=== PATIENT | female | born 1960 | race Caucasian/White ===

== ENCOUNTER 2016-11-02 08:36 | Emergency (ER) | payer OTHER ==
[2016-11-02 08:45] VITALS: BP 124/67
--- NOTE | 2016-11-02 09:49 | RAD ---
Indication: Pain following hyperextension injury 2 days ago. Bruising on palmar aspect. Pain at fourth and fifth digits radiating to the forearm. Comparison: No relevant prior exams available on the [facility]. Technique: AP and lateral views LEFT hand Report: Bone density is decreased throughout. No cortical disruption or suspicious trabecular irregularity to suggest fracture. Normal articular alignment. Polyarticular joint space narrowing and mild osteophytosis at the interphalangeal joints consistent with osteoarthritis. 3 mm intraosseous ganglion proximal pole of the scaphoid. Unremarkable soft tissue contours. IMPRESSION: Negative for fracture or malalignment.
--- NOTE | 2016-11-02 11:46 | ED ---
Catherine Muhammad Matthew, scribed for Cory Gomez MD on 11/02/16 at 0921 . Upper Extremity Pain - HPI Summary HPI Summary: A 56 y/o female presents to the ED with pain, swelling, and bruising in the left pink and ring finger since 1.5 days ago. The patient was playing football with her son when her finger was bent backwards by the football. PMHx includes asthma. FHx of CAD. - History of Current Complaint Chief Complaint: EDExtremityUpper Stated Complaint: FINGER PAIN Time Seen by Provider: 11/02/16 09:10 Hx Obtained From: Patient Mechanism Of Injury: Direct Blow - by football Onset/Duration: Started Days Ago Timing: Constant Severity Initially: Mild Severity Currently: Mild Pain Location: Finger - left pinky and ring fingers Aggravating Factor(s): Movement Associated Signs & Symptoms: Positive: Swelling, Bruising - Allergies/Home Medications Allergies/Adverse Reactions: Allergies Allergy/AdvReac Type Severity Reaction Status Date / Time Aspirin Allergy Intermediate Vomiting Verified 07/09/16 08:42 Codeine Allergy Mild Hives Verified 07/09/16 08:42 Penicillins Allergy Mild Rash Verified 07/09/16 08:42 PMH/Surg Hx/FS Hx/Imm Hx Endocrine/Hematology History: Reports: Hx Thyroid Disease, Hx Anemia Denies: Hx Anticoagulant Therapy, Hx Diabetes, Other Endocrine/Hematological Disorders Cardiovascular History: Reports: Hx Hypercholesterolemia, Other Cardiovascular Problems/Disorders - HYPERCHOLESTEROLEMIA Denies: Hx Angina, Hx Coronary Artery Disease, Hx Hypertension, Hx Myocardial Infarction, Hx Pacemaker/ICD, Hx Peripheral Vascular Disease, Hx Valvular Heart Disease Respiratory History: Reports: Hx Asthma Denies: Hx Chronic Obstructive Pulmonary Disease (COPD), Other Respiratory Problems/Disorders GI History: Reports: Hx Gall Bladder Disease - REMOVED 1999, Hx Pyloric Stenosis , Hx Ulcer - HX peptic ulcer, Other GI Disorders - Adhesions, H Pylori History: Reports: Other Problems/Disorders - 4yrs ago, urethral stenosis Denies: Hx Renal Disease Musculoskeletal History: Reports: 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, Other Musculoskeletal History - s/p bilateral carpal tunnel release Sensory History: Reports: Hx Contacts or Glasses Denies: Hx Cataracts, Hx Glaucoma, Hx Hearing Aid, Other Sensory Impairments Opthamlomology History: Reports: Hx Contacts or Glasses Denies: Hx Cataracts, Hx Glaucoma, Other Sensory Impairments Neurological History: Reports: Other Neuro Impairments/Disorders - PAIN CLINIC PATIENT Denies: Hx Dementia, Hx Seizures Psychiatric History: Reports: Hx Depression Denies: Hx Anxiety, Hx Panic Disorder, Hx Substance Abuse, Other Psychiatric Issues/Disorders - Cancer History Cancer Type, Location and Year: Cervical CA. SHAINA - Surgical History Surgery Procedure, Year, and Place: C SECTIONS 82, 83, 85, 1989-oophorectomy, 1994 [facility], 1997 (right) shouler rotator cuff, 1999 (right) knee arthroscopy, 2000 cholecystectomy, 10/23 [facility] (left) shoulder rotator cuff, 06/26 [facility]. gastrocsopy w/CLOtest & biopsy, 02/26 [facility] (right) carpal tunnel, 04/28 [facility] (left ) carpal tunnel, 05/30 [facility] gastroscopy w/CLOtest & gastric, antral biopsy, [facility] gastroscopy w/duodenal & gastric. biopsy, 09/28 [facility] exp lap & lysis of adhesions, [CONT.'] 10/29 [facility] partial small obstruction, 03/31 [facility] (left) carpal tunnel, 03/01 [facility] colposcopy w/biopsy of vaginal cuff & genital wart ablation. Rt FOOT - REPAIRED 2ND TOE - W/ SCREW. 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 Hx Anesthesia Reactions: No Infectious Disease History: Denies: Hx Clostridium Difficile, Hx Hepatitis, Hx Human Immunodeficiency Virus (HIV), Hx of Known/Suspected MRSA, Hx Shingles, Hx Tuberculosis, Hx Known/ Suspected VRE, Hx Known/Suspected VRSA, History Other Infectious Disease, Traveled Outside the [place] in Last 30 Days - Family History Known Family History: Positive: Cardiac Disease, Diabetes - Social History Alcohol Use: Occasionally Substance Use Type: Reports: None Hx Tobacco Use: No Smoking Status (MU): Never Smoked Tobacco Type: Cigarettes Amount Used/How Often: 1 pk/day Have You Smoked in the Last Year: Yes Review of Systems Constitutional: Negative Eyes: Negative ENT: Negative Cardiovascular: Negative Respiratory: Negative Gastrointestinal: Negative Genitourinary: Negative Positive: Myalgia - left pinky and ring finger , Edema - left pinky and ring finger Positive: Bruising - left pinky and ring finger Neurological: Negative Psychological: Normal All Other Systems Reviewed And Are Negative: Yes Physical Exam - Summary Physical Exam Summary: Vital signs: reviewed General: Patient is comfortable lying in stretcher with no signs of distress HEENT: within normal limits Lungs: CTA B/L CVS: S1 & S2 present. No murmurs appreciated. EXTREMITIES: FROM in all major joints, Left SKIN: Dry and warm Vital signs: reviewed General: Patient is comfortable lying in stretcher with no signs of distress HEENT: within normal limits Lungs: CTA B/L CVS: S1 & S2 present. No murmurs appreciated. ABDOMEN: Soft, non-tender. No signs of distention. No rebound no guarding, and no masses palpated. Bowel sounds are normal. EXTREMITIES: FROM in all major joints, left 4th and 5th digit with ecchymosis and decrease ROM secondary to pain. No deformity and good capillary refill. No erythema. NEURO: Alert and oriented x 3. No acute neurological deficits. Speech is normal and follows commands. SKIN: Dry and warm Triage Information Reviewed: Yes Vital Signs On Initial Exam: Initial Vitals Temp Pulse Resp BP Pulse Ox 97.7 F 66 16 124/67 97 11/02/16 08:38 11/02/16 08:38 11/02/16 08:38 11/02/16 08:38 11/02/16 08:38 Vital Signs Reviewed: Yes Diagnostics - Vital Signs Vital Signs Temp Pulse Resp BP Pulse Ox 11/02/16 08:45 97.7 F 66 16 124/67 97 11/02/16 08:38 97.7 F 66 16 124/67 97 - Laboratory Lab Statement: Any lab studies that have been ordered have been reviewed, and results considered in the medical decision making process. - Radiology Hand XR Xray Interpretation: No Acute Changes - IMPRESSION: Negative for fracture or malalignment. Radiology Interpretation Completed By: Radiologist Course/Dx - Course Assessment/Plan: A 56 y/o female presents to the ED with pain, swelling, and bruising in the left pink and ring finger since 1.5 days ago. The patient was playing football with her son when her finger was bent backwards by the football. PMHx includes asthma. FHx of CAD. Hand XR shows no fracture or dislocations. It seems that she may have some tendon injury. I have no suspicion of tendon synovitis since there is no erythema, mild swelling, and only slight bruising. Therefore, the patient was placed in a finger splint with PCP follow-up. She was recommend if she develops, fever, more swelling, pain, or erythema to return to the ED for further work-up and management. I discussed all the findings and test results with the patient. Patient was instructed to return to the emergency room immediately if any of the symptoms return or worsens. Plan of care was discussed with the patient and understands and agrees. All questions were answered at patient satisfaction. There were no further complaints or concerns. Lung exam before discharge: CTA B/L. Good air exchange. No wheezing or crackles heard. CVS: S1 and S2 present. No murmurs appreciated. Patient is alert and oriented x 3. Patient is hemodynamically stable. Patient will be discharged home with follow up PCP in the next 2-3 days - Diagnoses Differential Diagnosis/HQI/PQRI: Positive: Contusion, Fracture (Open), Strain, Sprain Provider Diagnoses: Finger sprain Discharge - Discharge Plan Condition: Stable Disposition: HOME Patient Education Materials: Finger Sprain (ED) Referrals: Cory Alexis MD [Primary Care Provider] - 4 Days Additional Instructions: Please follow-up with your primary care physician in 4 days. The documentation as recorded by the Catherine ruiz Matthew accurately reflects the service I personally performed and the decisions made by me, Cory Gomez MD.
== END 2016-11-02 10:15 | disposition home or self-care (01) ==
LOC: ED 08:36
DX: S63.617A Unspecified sprain of left little finger, initial encounter (principal); S63.635A Sprain of interphalangeal joint of left ring finger, initial encounter; X50.9XXA Other and unspecified overexertion or strenuous movements or postures, initial encounter; Y93.61 Activity, american tackle football; Y92.9 Unspecified place or not applicable; Y99.9 Unspecified external cause status
CPT/HCPCS: 99282

== ENCOUNTER 2017-04-17 17:40 | Inpatient (IN) | payer OTHER ==
[2017-04-17] MEDS ORDERED: HYDROmorphone INJ* 1 MG/ML CARPUJECT SYRINGE IV SLOW PU ONE (21:30)
[2017-04-17] MEDS ORDERED: NS 0.9% 1000 ML* 2,000 ML IV ONE (21:30)
[2017-04-17] MEDS ORDERED: Ondansetron INJ* 2 MG/ML VIAL IV ONE (21:30)
[2017-04-17 22:44] LABS: Hematocrit 40 % (35-47); Hemoglobin 13.5 g/dl (12.0-16.0); Mean Corpuscular HGB Conc 34 g/dl (31-36); Mean Corpuscular Hemoglobin 30 pg (27-31); Mean Corpuscular Volume 90 fL (80-97); Mean Platelet Volume 9 um3 (7.4-10.4); Red Blood Count 4.47 10^6/ul (4.0-5.4); Red Cell Distribution Width 13 % (10.5-15); White Blood Count 12.3 10^3/ul (3.5-10.8)
[2017-04-17 23:09] LABS: Albumin 4.4 g/dL (3.2-5.2); BUN/Creatinine Ratio 12.5 (8-20); C Reactive Protein 13.96 mg/L (< 5.00); Calcium 9.5 mg/dL (8.6-10.3); EGFR African American 108.6 (>60); EGFR Non-African American 84.4 (>60); Globulin 2.7 g/dL (2-4); Magnesium 2.3 mg/dL (1.9-2.7); Potassium 3.5 mmol/L (3.5-5.0); Total Bilirubin 1.1 mg/dL (0.2-1.0); Total Protein 7.1 g/dL (6.4-8.9)
[2017-04-17] MEDS ORDERED: Iohexol 300* (CONTRAST) 10 ML SDV IV ONE (23:54)
[2017-04-18] MEDS ORDERED: HYDROmorphone INJ* 1 MG/ML CARPUJECT SYRINGE IV SLOW PU ONE (00:17)
[2017-04-18 01:36] LABS: Urine Bilirubin Negative (Negative); Urine Glucose Negative (Negative); Urine Nitrite Negative (Negative)
[2017-04-18] MEDS ORDERED: Ciprofloxacin 400MG IVPREMIX(* 400 MG/200 ML BAG IVPB ONE (03:05)
[2017-04-18] MEDS ORDERED: metroNIDAZOLE IV 500 MG/100ML* 500 MG/100 ML BAG IVPB ONE (03:06)
--- NOTE | 2017-04-18 03:09 | ED ---
Himanshu Muhammad Alfonso, scribed for Abbie Cotton MD on 04/17/17 at 2050 . Abdominal Pain/Female - HPI Summary HPI Summary: This patient is a 56 year old F presenting to [facility] with a chief complaint of diffuse abdominal pain since last night. She states this is similar to my small bowel obstruction. The patient rates the pain 9/10 in severity. Symptoms aggravated by nothing. Symptoms alleviated by nothing. Patient reports nausea, constipation (few days), loss of appetite, and dysuria (pressure). Patient denies vomiting. A2. PMHx includes asthma, sleep apnea, and SBO (without surgery). PSHx of appendectomy, cholecystectomy, and hysterectomy. - History of Current Complaint Chief Complaint: EDAbdPain Stated Complaint: ABD PAIN Time Seen by Provider: 04/17/17 20:47 Hx Obtained From: Patient Onset/Duration: Sudden Onset, Lasting Days - last night, Still Present Timing: Constant Severity Currently: Severe Pain Intensity: 9 Pain Scale Used: 0-10 Numeric Location: Diffuse Aggravating Factor(s): Nothing Alleviating Factor(s): Nothing Associated Signs and Symptoms: Positive: Other: - nausea, constipation (few days ), loss of appetite, and dysuria (pressure). Patient denies vomiting Allergies/Adverse Reactions: Allergies Allergy/AdvReac Type Severity Reaction Status Date / Time Aspirin Allergy Intermediate Vomiting Verified 11/08/16 10:01 Codeine Allergy Mild Hives Verified 11/08/16 10:01 Penicillins Allergy Mild Rash Verified 11/08/16 10:01 PMH/Surg Hx/FS Hx/Imm Hx Endocrine/Hematology History: Reports: Hx Thyroid Disease, Hx Anemia Denies: Hx Anticoagulant Therapy, Hx Diabetes, Other Endocrine/Hematological Disorders Cardiovascular History: Reports: Hx Hypercholesterolemia, Other Cardiovascular Problems/Disorders - HYPERCHOLESTEROLEMIA Denies: Hx Angina, Hx Coronary Artery Disease, Hx Hypertension, Hx Myocardial Infarction, Hx Pacemaker/ICD, Hx Peripheral Vascular Disease, Hx Valvular Heart Disease Respiratory History: Reports: Hx Asthma Denies: Hx Chronic Obstructive Pulmonary Disease (COPD), Other Respiratory Problems/Disorders GI History: Reports: Hx Gall Bladder Disease - REMOVED 1999, Hx Pyloric Stenosis , Hx Ulcer - HX peptic ulcer, Other GI Disorders - Adhesions, H Pylori, SBO History: Reports: Other Problems/Disorders - 4yrs ago, urethral stenosis Denies: Hx Renal Disease Musculoskeletal History: Reports: 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, Other Musculoskeletal History - s/p bilateral carpal tunnel release Sensory History: Reports: Hx Contacts or Glasses Denies: Hx Cataracts, Hx Glaucoma, Hx Hearing Aid, Other Sensory Impairments Opthamlomology History: Reports: Hx Contacts or Glasses Denies: Hx Cataracts, Hx Glaucoma, Other Sensory Impairments Neurological History: Reports: Other Neuro Impairments/Disorders - PAIN CLINIC PATIENT Denies: Hx Dementia, Hx Seizures Psychiatric History: Reports: Hx Depression Denies: Hx Anxiety, Hx Panic Disorder, Hx Substance Abuse, Other Psychiatric Issues/Disorders - Cancer History Cancer Type, Location and Year: Cervical CA. SHAINA - Surgical History Surgery Procedure, Year, and Place: C SECTIONS 82, 83, 85, 1988-oophorectomy, 1994 [facility], 1997 (right) shouler rotator cuff, 1999 (right) knee arthroscopy, 2000 cholecystectomy, 10/[address] [facility] (left) shoulder rotator cuff, 06/[address] [facility]. gastrocsopy w/CLOtest & biopsy, 02/[address] [facility] (right) carpal tunnel, 04/[address] [facility] (left ) carpal tunnel, 05/[address] [facility] gastroscopy w/CLOtest & gastric, antral biopsy, [facility] gastroscopy w/duodenal & gastric. biopsy, 09/[address] [facility] exp lap & lysis of adhesions, [CONT.'] 10/[address] [facility] partial small obstruction, 03/[address] [facility] (left) carpal tunnel, 03/[address] [facility] colposcopy w/biopsy of vaginal cuff & genital wart ablation. Rt FOOT - REPAIRED 2ND TOE - W/ SCREW. 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 Hx Anesthesia Reactions: No Infectious Disease History: Yes Infectious Disease History: Denies: Hx Clostridium Difficile, Hx Hepatitis, Hx Human Immunodeficiency Virus (HIV), Hx of Known/Suspected MRSA, Hx Shingles, Hx Tuberculosis, Hx Known/ Suspected VRE, Hx Known/Suspected VRSA, History Other Infectious Disease, Traveled Outside the [place] in Last 30 Days - Family History Known Family History: Positive: Cardiac Disease, Diabetes, Other - Negative asthma - Social History Alcohol Use: None Substance Use Type: Reports: None Hx Tobacco Use: No Smoking Status (MU): Never Smoked Tobacco Type: Cigarettes Amount Used/How Often: 1 pk/day Have You Smoked in the Last Year: Yes Review of Systems Negative: Fever Positive: Abdominal Pain, Nausea, Other - constipation, loss of appetite. Negative: Vomiting Positive: dysuria All Other Systems Reviewed And Are Negative: Yes Physical Exam - Summary Physical Exam Summary: General: Well appearing, no pain distress, uncomfortable. Skin: Warm, Skin Color Reflects Adequate Perfusion, Dry Eyes: EOMI, RONALD ENT: Pharynx normal, TMs normal Neck: Supple, nontender Respiratory: CTA, breath sounds present, no rhonchi, no wheezes, no rales Cardiovascular: RRR, no murmur, no rub, no gallop Abdomen: Soft, Suprapubic tenderness, mild distention, no guarding, no rebound Bowel: Tympanic bowel sounds Musculoskeletal: [place], No edema Neuro: Sensory/motor intact, A&Ox3, CN intact 2-12 Psych: Affect/mood appropriate Triage Information Reviewed: Yes Vital Signs On Initial Exam: Initial Vitals Temp Pulse Resp BP Pulse Ox 97.7 F 78 20 127/85 96 04/17/17 17:42 04/17/17 17:42 04/17/17 17:42 04/17/17 17:42 04/17/17 17:42 Vital Signs Reviewed: Yes Diagnostics - Vital Signs Vital Signs Temp Pulse Resp BP Pulse Ox 04/17/17 17:42 97.7 F 78 20 127/85 96 - Laboratory Lab Results: Lab Results 04/17/17 04/17/17 04/17/17 Range/Units 22:05 22:28 22:28 WBC 12.3 H (3.5-10.8) 10^3/ul RBC 4.47 (4.0-5.4) 10^6/ul Hgb 13.5 (12.0-16.0) g/dl Hct 40 (35-47) % MCV 90 (80-97) fL MCH 30 (27-31) pg MCHC 34 (31-36) g/dl RDW 13 (10.5-15) % Plt Count 211 (150-450) 10^3/ul MPV 9 (7.4-10.4) um3 Neut % (Auto) 65.8 (38-83) % Lymph % (Auto) 22.0 L (25-47) % [place] % (Auto) 9.3 H (1-9) % Eos % (Auto) 2.2 (0-6) % Baso % (Auto) 0.7 (0-2) % Absolute Neuts (auto) 8.1 H (1.5-7.7) 10^3/ul Absolute Lymphs (auto) 2.7 (1.0-4.8) 10^3/ul Absolute Monos (auto) 1.1 H (0-0.8) 10^3/ul Absolute Eos (auto) 0.3 (0-0.6) 10^3/ul Absolute Basos (auto) 0.1 (0-0.2) 10^3/ul Absolute Nucleated RBC 0 10^3/ul Nucleated RBC % 0 Sodium 137 (133-145) mmol/L Potassium 3.5 (3.5-5.0) mmol/L Chloride 103 (101-111) mmol/L Carbon Dioxide 27 (22-32) mmol/L Anion Gap 7 (2-11) mmol/L BUN 9 (6-24) mg/dL Creatinine 0.72 (0.51-0.95) mg/dL Est GFR ( Amer) 108.6 (>60) Est GFR (Non-Af Amer) 84.4 (>60) BUN/Creatinine Ratio 12.5 (8-20) Glucose 93 (70-100) mg/dL Calcium 9.5 (8.6-10.3) mg/dL Magnesium 2.3 (1.9-2.7) mg/dL Total Bilirubin 1.10 H (0.2-1.0) mg/dL AST 21 (13-39) U/L ALT 33 (7-52) U/L Alkaline Phosphatase 88 (34-104) U/L C-Reactive Protein 13.96 H (< 5.00) mg/L Total Protein 7.1 (6.4-8.9) g/dL Albumin 4.4 (3.2-5.2) g/dL Globulin 2.7 (2-4) g/dL Albumin/Globulin Ratio 1.6 (1-3) Lipase 17 (11.0-82.0) U/L Urine Color Yellow Urine Appearance Clear Urine pH 6.0 (5-9) Ur Specific [place] 1.013 (1.010-1.030) Urine Protein Negative (Negative) Urine Ketones Negative (Negative) Urine Blood Negative (Negative) Urine Nitrate Negative (Negative) Urine Bilirubin Negative (Negative) Urine Urobilinogen Negative (Negative) Ur Leukocyte Esterase Negative (Negative) Urine Glucose Negative (Negative) Result Diagrams: 04/17/17 22:28 04/17/17 22:28 Lab Statement: Any lab studies that have been ordered have been reviewed, and results considered in the medical decision making process. - CT A/P CT Interpretation Completed By: Radiologist - There is no bowel obstruction, free air or free fluid. There is left colon and sigmoid diverticulosis. No diverticulitis. There is slight thickening of the reese of the transverse colon. This could be due to a partial distention but the possibility of a very mild colitis should be considered in the appropriate clinical context such ad diarrhea. ED physician has reviewed this radiology report and agrees. Re-Evaluation - Re-Evaluation First Eval Re-Evaluation Time: 03:00 Comment: Pt still in pain Abdominal Pain Fem Course/Dx - Course Course Of Treatment: 56 yo female with history of sbo here with left lower quadrant pain, ct shows diverticulosis and questionable transverse colon wall thickening but on repeat exam she is clearly just tender llq. She has had two doses of pain meds here and is still in pain and is unlikely to tolerate her pain at home. She will be treated for diverticulitis and the case will be discussed with Dr. Powell for admission - Diagnoses Provider Diagnoses: Diverticulitis Discharge - Discharge Plan Condition: Stable Disposition: ADMITTED TO [facility] Referrals: Non Staff,Doctor [Primary Care Provider] - The documentation as recorded by the Himanshu ruiz Alfonso accurately reflects the service I personally performed and the decisions made by me, Abbie Cotton MD.
--- NOTE | 2017-04-18 06:17 | HP ---
H&P (Free Text) History and Physical: Date/Time: 04/18/2017 0400 CC: LLQ abdominal pain HPI: Mrs Lima is a 56YO overweight female who is a vague, evasive historian. She reports onset of epigastric pain 1 month ago associated with diarrhea for which she started OTC Immodium resulting in constipation. She states her last BM was 3-4 days ago & described as normal. 2 days ago she began having LLQ pain associated with nausea and sweats after arrival to ED [facility]. She denies F/C, chest pain, SOB, or B/U/F of urine. PMedHx hypothyroidism VIKTOR asthma Ambulatory Orders Nursing to reconcile. Budesonide-Formoterol Fumarate [Symbicort] 2 puff IN BID 10/09/12 Levothyroxine Sodium 75 mcg PO DAILY 10/09/12 Montelukast Sodium TAB* [Singulair TAB*] 5 mg PO DAILY 02/22/15 Aclidinium [place] [Tudorza Pressair] 400 mcg IN DAILY 11/08/16 Nicotine PATCH 21 MG/24 HR* 11 mg TRANSDERM DAILY 02/19/17 Allergies Aspirin Allergy (Intermediate, Verified 11/08/16 10:01) Vomiting Codeine Allergy (Mild, Verified 11/08/16 10:01) Hives Penicillins Allergy (Mild, Verified 11/08/16 10:01) Rash PSurgHx cholecystectomy x3 adhesolysis appendectomy hysterectomy tubal ligation B carpal tunnel release R knee arthroscopy R foot surgery SocHx: quit cigarettes 2 months ago, denies alcohol & recreational drugs; lives with her ; 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; 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 FamHx: Mother: alive 87 w/ DM2 & CVA; Father passed at 56; 5 brothers, one with breast CA, 1 with lymphoma, 1 with an AICD, & 1 with colon CA & renal failure ROS: as above, otherwise reviewed and all were negative vitals: Vital Signs Temp 36.6 C 04/18/17 05:41 Pulse 63 04/18/17 05:41 Resp 16 04/18/17 05:55 BP 124/63 04/18/17 05:41 Pulse Ox 96 04/18/17 05:41 Intake & Output 04/17/17 04/17/17 04/18/17 11:59 23:59 11:59 Intake Total 1999 200 Output Total 300 Balance 1999 Weight 68.039 kg 68.039 kg Intake: IV Fluids 1999 Output: Urine 300 Constitutional: NAD, normally developed, overweight white female HEENM: atraumatic; sclera/conjunctiva: non-icteric/clear; hearing: clinically intact; oropharynx: clear, mucosa moist Neck: soft tissue: normal; thyroid: normal Pulmonary: clear to auscultation bilaterally, good aeration, no accessory muscle use CV: RR/RR, normal S1S2, no carotid bruit, no jugular venous distention, 2+ B DP/ PT, no edema Abdominal: soft, non-distended, mild/mod LLQ tenderness with voluntary guarding but no rebound/rigidity, normoactive bowel sounds, no hepatosplenomegaly or masses, no costovertebral angle tenderness Musculoskeletal: general: grossly intact; gait: stable Integumental: normal appearance and texture of exposed skin Psychiatric orientation: AA&O to PPS affect: calm mood: cooperative eye contact: fair content: reliable responses: evasive insight: fair Testing: Lab Results 04/17/17 04/17/17 04/17/17 Range/Units 22:05 22:28 22:28 WBC 12.3 H (3.5-10.8) 10^3/ul RBC 4.47 (4.0-5.4) 10^6/ul Hgb 13.5 (12.0-16.0) g/dl Hct 40 (35-47) % MCV 90 (80-97) fL MCH 30 (27-31) pg MCHC 34 (31-36) g/dl RDW 13 (10.5-15) % Plt Count 211 (150-450) 10^3/ul MPV 9 (7.4-10.4) um3 Neut % (Auto) 65.8 (38-83) % Lymph % (Auto) 22.0 L (25-47) % [place] % (Auto) 9.3 H (1-9) % Eos % (Auto) 2.2 (0-6) % Baso % (Auto) 0.7 (0-2) % Absolute Neuts (auto) 8.1 H (1.5-7.7) 10^3/ul Absolute Lymphs (auto) 2.7 (1.0-4.8) 10^3/ul Absolute Monos (auto) 1.1 H (0-0.8) 10^3/ul Absolute Eos (auto) 0.3 (0-0.6) 10^3/ul Absolute Basos (auto) 0.1 (0-0.2) 10^3/ul Absolute Nucleated RBC 0 10^3/ul Nucleated RBC % 0 Sodium 137 (133-145) mmol/L Potassium 3.5 (3.5-5.0) mmol/L Chloride 103 (101-111) mmol/L Carbon Dioxide 27 (22-32) mmol/L Anion Gap 7 (2-11) mmol/L BUN 9 (6-24) mg/dL Creatinine 0.72 (0.51-0.95) mg/dL Est GFR ( Amer) 108.6 (>60) Est GFR (Non-Af Amer) 84.4 (>60) BUN/Creatinine Ratio 12.5 (8-20) Glucose 93 (70-100) mg/dL Calcium 9.5 (8.6-10.3) mg/dL Magnesium 2.3 (1.9-2.7) mg/dL Total Bilirubin 1.10 H (0.2-1.0) mg/dL AST 21 (13-39) U/L ALT 33 (7-52) U/L Alkaline Phosphatase 88 (34-104) U/L C-Reactive Protein 13.96 H (< 5.00) mg/L Total Protein 7.1 (6.4-8.9) g/dL Albumin 4.4 (3.2-5.2) g/dL Globulin 2.7 (2-4) g/dL Albumin/Globulin Ratio 1.6 (1-3) Lipase 17 (11.0-82.0) U/L Urine Color Yellow Urine Appearance Clear Urine pH 6.0 (5-9) Ur Specific [place] 1.013 (1.010-1.030) Urine Protein Negative (Negative) Urine Ketones Negative (Negative) Urine Blood Negative (Negative) Urine Nitrate Negative (Negative) Urine Bilirubin Negative (Negative) Urine Urobilinogen Negative (Negative) Ur Leukocyte Esterase Negative (Negative) Urine Glucose Negative (Negative) CT abd/pel W, personally reviewed: FINDINGS: There is no bowel obstruction, free air, or free fluid. There is left colon and sigmoid diverticulosis. No diverticulitis. There is slight thickening of the reese of the transverse colon. This could be due to partial distention but the possibility of a very mild colitis should be considered in the appropriate clinical context such as diarrhea. Normal kidneys, urinary tract, and urinary bladder. Fatty liver. Normal spleen. Normal pancreas. Prior cholecystectomy. Normal adrenal glands. Otherwise no acute abnormalities. Impression: 56F clinically presenting with LLQ diverticulitis despite a negative CT abd/pel W DIAGNOSIS & PLAN Primary LLQ diverticulitis : IV ciprofloxacin & metronidazole : IVFs : trend labs : pain control : supportive care Secondary hypothyroidism : continue levothyroxine once reconciled asthma : PRN albuterol nebs Admission Rational: observation for early diverticulitis DVTp: SCDs Code Status: full
[2017-04-18] MEDS ORDERED: Acetaminophen TAB* 325 MG PO PRN (07:02)
[2017-04-18] MEDS ORDERED: Albuterol 2.5 MG/3 ML NEB.SOL* (0.083%) INH PRN (07:02)
[2017-04-18] MEDS ORDERED: CMC:Melatonin (NF) 3 MG TAB PO PRN (07:03)
[2017-04-18] MEDS: NS 0.9% 1000 ML* 1,000 ML IV SCH ×2 (07:48→19:22)
[2017-04-18] MEDS: HYDROmorphone INJ* 1 MG/ML CARPUJECT SYRINGE IV PRN ×5 (07:49→15:59)
[2017-04-18] MEDS: Ondansetron INJ* 2 MG/ML VIAL IV PRN ×2 (07:56→14:54)
[2017-04-18 08:12] LABS: Hematocrit 39 % (35-47); Hemoglobin 13.2 g/dl (12.0-16.0); Mean Corpuscular HGB Conc 34 g/dl (31-36); Mean Corpuscular Hemoglobin 30 pg (27-31); Mean Corpuscular Volume 89 fL (80-97); Mean Platelet Volume 9 um3 (7.4-10.4); Red Blood Count 4.41 10^6/ul (4.0-5.4); Red Cell Distribution Width 13 % (10.5-15); White Blood Count 11.6 10^3/ul (3.5-10.8)
--- NOTE | 2017-04-18 08:14 | RAD ---
CLINICAL HISTORY: Abdominal pain and history of obstruction. Relevant surgical history includes hysterectomy, cholecystectomy and lysis of adhesions. COMPARISON: Similar CT examination dated August 21, 2010 TECHNIQUE: Contrast enhanced CT examination of the abdomen and pelvis from the lung bases through the initial tuberosities. The patient received 97. mL Omnipaque 300 intravenously prior to imaging.The patient received oral contrast as well prior to imaging. FINDINGS: VISUALIZED LUNG BASES: The visualized lung bases are grossly clear. There is no pleural effusion. ABDOMEN AND PELVIS: The liver is homogenously hypodense compared to the spleen. There are no focal liver masses. The spleen, pancreas and adrenal glands are grossly normal in appearance. The gallbladder is surgically absent. The kidneys are normal in appearance without focal mass, calcification or signs of hydronephrosis. Neural contrast has progressed as far as the splenic flexure. There is surgical material at the midline upper abdominal small bowel. At this site there is dilatation of the small bowel measuring up to 4.1 cm in diameter (image 67) as well as air-fluid levels both proximal and beyond this transition point. More distally the small bowel is not suspiciously under distended. The appendix is not discretely visualized. At the distal colon there are diverticula becoming more numerous at the rectosigmoid colon. Surrounding the sigmoid colon there is mild infiltration of the pericolonic fat (image 139 for example). There is no gross retroperitoneal or mesenteric lymphadenopathy. The uterus is surgically absent. There is compression of the left common iliac vein between the iliac arteries and spine. More inferiorly the iliac veins and visualized common femoral vein or not suspiciously dilated. The abdominal aorta and iliac arteries are normal in course and diameter. Degenerative changes include multilevel loss of intervertebral disc height involving the lower thoracic and lumbar spine.There are no sinister bone lesions. IMPRESSION: 1. At the small bowel anastomotic site at the mid-level upper abdomen there is dilatation up to 4.1 cm with air-fluid levels with proximal and distal to the site indicating a degree of ileus and/or partial obstruction. Nevertheless, contrast is seen as far as the splenic flexure of the colon. 2. There is rectosigmoid diverticulosis with mild inflammatory change surrounding the sigmoid colon which could be consistent with diverticulitis in the correct clinical setting. 3. Appearance of compression of the left common iliac vein which could be seen in the setting of May Thurner syndrome. Please correlate to a history of chronic left lower extremity pain, swelling and/or DVT. 4. Additional chronic, degenerative and postsurgical findings described in the body the report unlikely to be directly related to the patient's current presentation.
[2017-04-18] MEDS ORDERED: Influenza VAC *QUAD* 2017-18* 0.5 ML SYRINGE IM ONE (09:00)
[2017-04-18 09:04] LABS: BUN/Creatinine Ratio 10.9 (8-20); Calcium 8.9 mg/dL (8.6-10.3); EGFR African American 124.4 (>60); EGFR Non-African American 96.7 (>60); Potassium 3.8 mmol/L (3.5-5.0)
[2017-04-18] MEDS: Docusate CAP* 100 MG PO SCH ×2 (09:33→20:54)
[2017-04-18] MEDS: metroNIDAZOLE IV 500 MG/100ML* 500 MG/100 ML BAG IVPB SCH ×2 (11:10→19:44)
[2017-04-18] MEDS: Polyethylene Glycol 3350* 17 GM PACKET PO PRN (14:54)
[2017-04-18] MEDS: Senna TAB PO PRN (14:54)
[2017-04-18] MEDS: Ciprofloxacin IV(*) 400 MG in D5W 250 ML BAG* 160 ML IVPB SCH (15:19)
[2017-04-18] MEDS ORDERED: HYDROmorphone INJ* 2 MG/ML CARPUJECT SYRINGE IV PRN (20:29)
--- NOTE | 2017-04-18 20:36 | PN ---
Subjective Date of Service: 04/18/17 Interval History: LLQ/suprapubic Pain not well controlled on the 0.5mg IV dialudid. Slightly better when increased to 1mg q2 Pt attests. Lactic Acid wnl Passing some flatus but no BM (last 3-4 days ago, had started immodium for diarrhea which occurred intermittently for month) Nausea with vomiting yesterday Hx of lysis of adhesions 2007 Objective Active Medications: Acetaminophen (Tylenol Tab*) 650 mg PO Q6H PRN PRN Reason: FEVER/PAIN Albuterol (Ventolin 2.5 Mg/3 Ml Neb.[place]*) 2.5 mg INH Q2H PRN PRN Reason: SOB/WHEEZING Docusate Sodium (Colace Cap*) 200 mg PO BID [facility] Last Admin: 04/18/17 09:33 Dose: 200 mg Hydromorphone HCl (Dilaudid Inj*) 1.5 mg IV Q2H PRN PRN Reason: PAIN Ciprofloxacin 400 mg/ Dextrose 200 mls @ 200 mls/hr IVPB Q12H [facility] Last Admin: 04/18/17 15:19 Dose: 200 mls/hr Sodium Chloride (Ns 0.9% 1000 Ml*) 1,000 mls @ 125 mls/hr IV PER RATE [facility] Last Admin: 04/18/17 19:22 Dose: 125 mls/hr Metronidazole/Sodium Chloride (Flagyl 500 Mg Ivpb*) 500 mg in 100 mls @ 100 mls /hr IVPB Q8H [facility] Last Admin: 04/18/17 19:44 Dose: 100 mls/hr Melatonin (Melatonin (Nf)) 3 mg PO BEDTIME PRN; Protocol PRN Reason: Sleep Omeprazole (Prilosec Cap*) 20 mg PO DAILY@0600 [facility] Ondansetron HCl (Zofran Inj*) 4 mg IV Q6H PRN PRN Reason: NAUSEA Last Admin: 04/18/17 14:54 Dose: 4 mg Polyethylene Glycol/Electrolytes (Miralax*) 17 gm PO DAILY PRN PRN Reason: CONSTIPATION Last Admin: 04/18/17 14:54 Dose: 17 gm Prochlorperazine Edisylate (Compazine Inj*) 10 mg IV Q6H PRN PRN Reason: NAUSEA Senna (Senokot Tab*) 1 tab PO DAILY PRN PRN Reason: CONSTIPATION Last Admin: 04/18/17 14:54 Dose: 1 tab Vital Signs 04/18/17 04/18/17 04/18/17 04:30 05:41 05:48 Temperature 98 F 98.0 F Pulse Rate 63 63 Respiratory 18 16 16 Rate Blood Pressure 123/77 124/63 124/63 (mmHg) O2 Sat by Pulse 96 96 Oximetry 04/18/17 04/18/17 04/18/17 05:55 07:40 07:49 Temperature 97.4 F Pulse Rate 67 Respiratory 16 16 18 Rate Blood Pressure 107/52 (mmHg) O2 Sat by Pulse 96 Oximetry 04/18/17 04/18/17 04/18/17 08:00 08:49 09:42 Temperature Pulse Rate Respiratory 18 18 18 Rate Blood Pressure (mmHg) O2 Sat by Pulse Oximetry 04/18/17 04/18/17 04/18/17 10:42 11:21 11:53 Temperature 97.6 F Pulse Rate 61 Respiratory 18 16 16 Rate Blood Pressure 113/67 (mmHg) O2 Sat by Pulse 96 Oximetry 04/18/17 04/18/17 04/18/17 12:53 14:04 15:04 Temperature Pulse Rate Respiratory 18 18 18 Rate Blood Pressure (mmHg) O2 Sat by Pulse Oximetry 04/18/17 04/18/17 04/18/17 15:54 15:59 16:59 Temperature 97.8 F Pulse Rate 62 Respiratory 22 18 18 Rate Blood Pressure 108/64 (mmHg) O2 Sat by Pulse 95 Oximetry Oxygen Devices in Use Now: None Appearance: moderate distress Ears/Nose/Mouth/Throat: NL Teeth, Lips, Gums, Mucous Membranes Moist Neck: NL Appearance and Movements; NL JVP, Trachea Midline Respiratory: Symmetrical Chest Expansion and Respiratory Effort, Clear to Auscultation Cardiovascular: NL Sounds; No Murmurs; No JVD, RRR, No Edema Abdominal: No Hepatosplenomegaly, - - tenderness to palpation LLQ and supapubic. No rebound tenderness. Neative Rae's. Hypoactive but present bowel sounds. Extremities: No Edema, No Clubbing, Cyanosis Skin: No Rash or Ulcers, No Nodules or Sclerosis Result Diagrams: 04/18/17 07:47 04/18/17 07:47 Additional Lab and Data: Lab Results 09/27/17 09/27/17 09/27/17 Range/Units 22:05 22:28 22:28 WBC 12.3 H (3.5-10.8) 10^3/ul RBC 4.47 (4.0-5.4) 10^6/ul Hgb 13.5 (12.0-16.0) g/dl Hct 40 (35-47) % MCV 90 (80-97) fL MCH 30 (27-31) pg MCHC 34 (31-36) g/dl RDW 13 (10.5-15) % Plt Count 211 (150-450) 10^3/ul MPV 9 (7.4-10.4) um3 Neut % (Auto) 65.8 (38-83) % Lymph % (Auto) 22.0 L (25-47) % [place] % (Auto) 9.3 H (1-9) % Eos % (Auto) 2.2 (0-6) % Baso % (Auto) 0.7 (0-2) % Absolute Neuts (auto) 8.1 H (1.5-7.7) 10^3/ul Absolute Lymphs (auto) 2.7 (1.0-4.8) 10^3/ul Absolute Monos (auto) 1.1 H (0-0.8) 10^3/ul Absolute Eos (auto) 0.3 (0-0.6) 10^3/ul Absolute Basos (auto) 0.1 (0-0.2) 10^3/ul Absolute Nucleated RBC 0 10^3/ul Nucleated RBC % 0 Sodium 137 (133-145) mmol/L Potassium 3.5 (3.5-5.0) mmol/L Chloride 103 (101-111) mmol/L Carbon Dioxide 27 (22-32) mmol/L Anion Gap 7 (2-11) mmol/L BUN 9 (6-24) mg/dL Creatinine 0.72 (0.51-0.95) mg/dL Est GFR ( Amer) 108.6 (>60) Est GFR (Non-Af Amer) 84.4 (>60) BUN/Creatinine Ratio 12.5 (8-20) Glucose 93 (70-100) mg/dL Calcium 9.5 (8.6-10.3) mg/dL Magnesium 2.3 (1.9-2.7) mg/dL Total Bilirubin 1.10 H (0.2-1.0) mg/dL AST 21 (13-39) U/L ALT 33 (7-52) U/L Alkaline Phosphatase 88 (34-104) U/L C-Reactive Protein 13.96 H (< 5.00) mg/L Total Protein 7.1 (6.4-8.9) g/dL Albumin 4.4 (3.2-5.2) g/dL Globulin 2.7 (2-4) g/dL Albumin/Globulin Ratio 1.6 (1-3) Lipase 17 (11.0-82.0) U/L Urine Color Yellow Urine Appearance Clear Urine pH 6.0 (5-9) Ur Specific [place] 1.013 (1.010-1.030) Urine Protein Negative (Negative) Urine Ketones Negative (Negative) Urine Blood Negative (Negative) Urine Nitrate Negative (Negative) Urine Bilirubin Negative (Negative) Urine Urobilinogen Negative (Negative) Ur Leukocyte Esterase Negative (Negative) Urine Glucose Negative (Negative) Assess/Plan/Problems-Billing Assessment: 56 year old female PMH multiple abdominal surgeries and s/p lysis of adhesions 2007, presenting with LLQ abdominal pain, nausea/dry heaves, previous diarrhea now [address] abd/pelvis consistent with ileus/partial obstruction and possible mild colitis/diverticulitis. Requiring IV pain meds. - Patient Problems (1) LLQ abdominal pain Current Visit: Yes Status: Acute Code(s): R10.32 - LEFT LOWER QUADRANT PAIN SNOMED Code(s): 396176171 Comment: Likely diverticulitis with component of ileus/constipation/partial sbo. Hx of ANURAG, multiple abdominal surgeries. Lactic Acid drawn and wnl. lipase wnl. s/p CT abd/pelvis. Increase bowel regimen. NPO for now. pain control (increasing up for poor control, currently 1.5mg dilaudid q2h prn. Passing flatus. Serial abdominal exams. Consider surgical consult if progresses. Consider NG tube. Continue cipro/flagyl Cdiff negative, f/u stool studies. (2) Partial small bowel obstruction Current Visit: Yes Status: Acute Code(s): K56.69 - OTHER INTESTINAL OBSTRUCTION SNOMED Code(s): 296850804 Comment: npo, consider ng tube/surgical consult if not improved. Passing flatus and IV contrast past transition point (3) Diverticulitis Current Visit: Yes Status: Acute Comment: cipro/flagyl rest of plan as above. Status and Disposition: medicine inpatient. Likely 2-3 days Attending: Luis A Coppola
[2017-04-18] MEDS: PROCHLORPERAZINE INJ 5 MG/ML 2 ML VIAL IV PRN (20:53)
[2017-04-19] MEDS: Ketorolac INJ* 15 MG/ML 1 ML VIAL IV PRN ×3 (02:08→20:28)
[2017-04-19] MEDS: Ondansetron INJ* 2 MG/ML VIAL IV PRN (02:08)
[2017-04-19] MEDS: metroNIDAZOLE IV 500 MG/100ML* 500 MG/100 ML BAG IVPB SCH ×3 (03:28→17:16)
[2017-04-19] MEDS: Ciprofloxacin IV(*) 400 MG in D5W 250 ML BAG* 160 ML IVPB SCH ×3 (04:48→17:21)
[2017-04-19] MEDS: Omeprazole CAP* 20 MG PO SCH (05:49)
[2017-04-19] MEDS: Docusate CAP* 100 MG PO SCH ×2 (09:41→20:32)
[2017-04-19] MEDS: Morphine INJ* 2 MG/ML 1 ML SYRINGE (TWO MG - NEW SYRINGE VERSION) IV PRN ×2 (09:48→17:20)
[2017-04-19] MEDS: NS 0.9% 1000 ML* 1,000 ML IV SCH ×2 (10:07→21:38)
[2017-04-19 10:23] LABS: Hematocrit 36 % (35-47); Hemoglobin 12.1 g/dl (12.0-16.0); Mean Corpuscular HGB Conc 34 g/dl (31-36); Mean Corpuscular Hemoglobin 30 pg (27-31); Mean Corpuscular Volume 89 fL (80-97); Mean Platelet Volume 9 um3 (7.4-10.4); Red Blood Count 4.05 10^6/ul (4.0-5.4); Red Cell Distribution Width 13 % (10.5-15); White Blood Count 8.4 10^3/ul (3.5-10.8)
[2017-04-19 10:42] LABS: BUN/Creatinine Ratio 11.1 (8-20); Calcium 8.6 mg/dL (8.6-10.3); EGFR African American 126.6 (>60); EGFR Non-African American 98.5 (>60); Potassium 3.6 mmol/L (3.5-5.0)
[2017-04-19] MEDS: PROCHLORPERAZINE INJ 5 MG/ML 2 ML VIAL IV PRN (17:24)
--- NOTE | 2017-04-19 18:10 | PN ---
Subjective Date of Service: 04/19/17 Interval History: Was switched to toradol 15mg and compazine overnight. Dilaudid was making nauseous. Still no BM, minimal flatus Objective Active Medications: Acetaminophen (Tylenol Tab*) 650 mg PO Q6H PRN PRN Reason: FEVER/PAIN Last Admin: 04/19/17 05:49 Dose: 650 mg Albuterol (Ventolin 2.5 Mg/3 Ml Neb.[place]*) 2.5 mg INH Q2H PRN PRN Reason: SOB/WHEEZING Docusate Sodium (Colace Cap*) 200 mg PO BID [facility] Last Admin: 04/19/17 09:41 Dose: Not Given Sodium Chloride (Ns 0.9% 1000 Ml*) 1,000 mls @ 125 mls/hr IV PER RATE [facility] Last Admin: 04/19/17 10:07 Dose: 125 mls/hr Metronidazole/Sodium Chloride (Flagyl 500 Mg Ivpb*) 500 mg in 100 mls @ 100 mls /hr IVPB Q8H [facility] Last Admin: 04/19/17 17:16 Dose: 100 mls/hr Ciprofloxacin 400 mg/ Dextrose 200 mls @ 200 mls/hr IVPB 0500,1700 [facility] Last Admin: 04/19/17 17:21 Dose: 200 mls/hr Ketorolac Tromethamine (Toradol Inj*) 15 mg IV Q6H PRN PRN Reason: PAIN Last Admin: 04/19/17 08:03 Dose: 15 mg Melatonin (Melatonin (Nf)) 3 mg PO BEDTIME PRN; Protocol PRN Reason: Sleep Morphine Sulfate (Morphine Inj (Syringe)*) 2 mg IV Q4H PRN PRN Reason: PAIN - MILD Last Admin: 04/19/17 17:20 Dose: 2 mg Omeprazole (Prilosec Cap*) 20 mg PO DAILY@0600 [facility] Last Admin: 04/19/17 05:49 Dose: 20 mg Ondansetron HCl (Zofran Inj*) 4 mg IV Q6H PRN PRN Reason: NAUSEA Last Admin: 04/19/17 02:08 Dose: 4 mg Polyethylene Glycol/Electrolytes (Miralax*) 17 gm PO DAILY PRN PRN Reason: CONSTIPATION Last Admin: 04/18/17 14:54 Dose: 17 gm Prochlorperazine Edisylate (Compazine Inj*) 10 mg IV Q6H PRN PRN Reason: NAUSEA Last Admin: 04/19/17 17:24 Dose: 10 mg Senna (Senokot Tab*) 1 tab PO DAILY PRN PRN Reason: CONSTIPATION Last Admin: 04/18/17 14:54 Dose: 1 tab Vital Signs 04/19/17 04/19/17 04/19/17 09:48 11:20 17:20 Pulse Rate 64 Respiratory 16 16 18 Rate O2 Sat by Pulse 93 Oximetry Oxygen Devices in Use Now: None Appearance: no acute distress though some discomfort Neck: NL Appearance and Movements; NL JVP Respiratory: Symmetrical Chest Expansion and Respiratory Effort, Clear to Auscultation Cardiovascular: NL Sounds; No Murmurs; No JVD, RRR Abdominal: - - tender in LLQ but somewhat improved. No peritoneal signs. soft, nondistended. Skin: No Rash or Ulcers Neurological: Alert and Oriented x 3 Result Diagrams: 04/19/17 10:08 04/19/17 10:08 Additional Lab and Data: Laboratory Results - last 24 hr 04/19/17 04/19/17 10:08 10:08 WBC 8.4 RBC 4.05 Hgb 12.1 Hct 36 MCV 89 MCH 30 MCHC 34 RDW 13 Plt Count 167 MPV 9 Neut % (Auto) 63.5 Lymph % (Auto) 21.8 L [place] % (Auto) 10.2 H Eos % (Auto) 3.4 Baso % (Auto) 1.1 Absolute Neuts (auto) 5.3 Absolute Lymphs (auto) 1.8 Absolute Monos (auto) 0.9 H Absolute Eos (auto) 0.3 Absolute Basos (auto) 0.1 Absolute Nucleated RBC 0 Nucleated RBC % 0 Sodium 141 Potassium 3.6 Chloride 111 Carbon Dioxide 24 Anion Gap 6 BUN 7 Creatinine 0.63 Est GFR ( Amer) 126.6 Est GFR (Non-Af Amer) 98.5 BUN/Creatinine Ratio 11.1 Glucose 84 Calcium 8.6 Assess/Plan/Problems-Billing Assessment: 56 year old female PMH multiple abdominal surgeries and s/p lysis of adhesions 2007, presenting with LLQ abdominal pain, nausea/dry heaves, previous diarrhea now [address] abd/pelvis consistent with ileus/partial obstruction and possible mild colitis/diverticulitis. Requiring IV pain meds. No BM yet - Patient Problems (1) LLQ abdominal pain Current Visit: Yes Status: Acute Code(s): R10.32 - LEFT LOWER QUADRANT PAIN SNOMED Code(s): 170946048 Comment: Likely diverticulitis with component of ileus/constipation/partial sbo. Hx of ANURAG, multiple abdominal surgeries. Lactic Acid drawn and wnl. lipase wnl. s/p CT abd/pelvis. Increase bowel regimen. NPO for now. pain control (increasing up for poor control, now with toradol and morphine (less nausea compared to dilaudid) Passing some flatus. Serial abdominal exams, slightly improved. NG tube was ordered but pt now declining. Continue cipro/flagyl Cdiff negative (2) Partial small bowel obstruction Current Visit: Yes Status: Acute Code(s): K56.69 - OTHER INTESTINAL OBSTRUCTION SNOMED Code(s): 935152574 Comment: npo, ng tube ordered but pt was declining. Passing flatus and IV contrast past transition point No BM yet (3) Diverticulitis Current Visit: Yes Status: Acute Comment: cipro/flagyl rest of plan as above. Status and Disposition: medicine inpatient. Likely 2 days Attending: Luis A Coppola
[2017-04-19] MEDS: Senna TAB PO PRN (20:32)
[2017-04-20] MEDS: Morphine INJ* 2 MG/ML 1 ML SYRINGE (TWO MG - NEW SYRINGE VERSION) IV PRN ×2 (00:21→09:45)
[2017-04-20] MEDS: metroNIDAZOLE IV 500 MG/100ML* 500 MG/100 ML BAG IVPB SCH ×3 (03:19→18:09)
[2017-04-20] MEDS: Ciprofloxacin IV(*) 400 MG in D5W 250 ML BAG* 160 ML IVPB SCH ×2 (05:38→16:55)
[2017-04-20] MEDS: Omeprazole CAP* 20 MG PO SCH (05:40)
[2017-04-20] MEDS: Ketorolac INJ* 15 MG/ML 1 ML VIAL IV PRN ×2 (05:43→14:37)
[2017-04-20] MEDS: NS 0.9% 1000 ML* 1,000 ML IV SCH ×2 (07:44→16:59)
[2017-04-20] MEDS: Docusate CAP* 100 MG PO SCH ×2 (08:52→20:42)
[2017-04-20] MEDS: Senna TAB PO PRN (08:52)
[2017-04-20] MEDS ORDERED: Polyethylene Glycol 3350* 17 GM PACKET PO PRN (11:24)
[2017-04-20] MEDS ORDERED: Bisacodyl SUPP* 10 MG SUPP PR PRN (11:25)
[2017-04-20] MEDS: Polyethylene Glycol 3350* 17 GM PACKET PO PRN (12:26)
--- NOTE | 2017-04-20 15:15 | PN ---
Subjective Date of Service: 04/20/17 Interval History: Pain improved, only 1 episode of nausea. Passing a lot of flatus. Afebrile hemodynamically stable. Given miralax today and then had mixed loose/hard BM Objective Active Medications: Acetaminophen (Tylenol Tab*) 650 mg PO Q6H PRN PRN Reason: FEVER/PAIN Last Admin: 04/19/17 05:49 Dose: 650 mg Albuterol (Ventolin 2.5 Mg/3 Ml Neb.[place]*) 2.5 mg INH Q2H PRN PRN Reason: SOB/WHEEZING Bisacodyl (Dulcolax Supp*) 10 mg [place] DAILY PRN PRN Reason: CONSTIPATION Docusate Sodium (Colace Cap*) 200 mg PO BID [facility] Last Admin: 04/20/17 08:52 Dose: 200 mg Sodium Chloride (Ns 0.9% 1000 Ml*) 1,000 mls @ 125 mls/hr IV PER RATE [facility] Last Admin: 04/20/17 07:44 Dose: 125 mls/hr Metronidazole/Sodium Chloride (Flagyl 500 Mg Ivpb*) 500 mg in 100 mls @ 100 mls /hr IVPB Q8H [facility] Last Admin: 04/20/17 11:14 Dose: 100 mls/hr Ciprofloxacin 400 mg/ Dextrose 200 mls @ 200 mls/hr IVPB 0500,1700 [facility] Last Admin: 04/20/17 05:38 Dose: 200 mls/hr Ketorolac Tromethamine (Toradol Inj*) 15 mg IV Q6H PRN PRN Reason: PAIN Last Admin: 04/20/17 14:37 Dose: 15 mg Melatonin (Melatonin (Nf)) 3 mg PO BEDTIME PRN; Protocol PRN Reason: Sleep Omeprazole (Prilosec Cap*) 20 mg PO DAILY@0600 [facility] Last Admin: 04/20/17 05:40 Dose: 20 mg Ondansetron HCl (Zofran Inj*) 4 mg IV Q6H PRN PRN Reason: NAUSEA Last Admin: 04/19/17 02:08 Dose: 4 mg Polyethylene Glycol/Electrolytes (Miralax*) 17 gm PO DAILY PRN PRN Reason: CONSTIPATION Last Admin: 04/20/17 12:26 Dose: 17 gm Polyethylene Glycol/Electrolytes (Miralax*) 17 gm PO DAILY PRN PRN Reason: CONSTIPATION Prochlorperazine Edisylate (Compazine Inj*) 10 mg IV Q6H PRN PRN Reason: NAUSEA Last Admin: 04/19/17 17:24 Dose: 10 mg Senna (Senokot Tab*) 1 tab PO DAILY PRN PRN Reason: CONSTIPATION Last Admin: 04/20/17 08:52 Dose: 1 tab Vital Signs 04/19/17 04/19/17 04/19/17 17:20 19:30 20:44 Temperature 97.9 F Pulse Rate 68 Respiratory 18 20 18 Rate Blood Pressure 119/57 (mmHg) O2 Sat by Pulse 94 Oximetry 04/20/17 04/20/17 04/20/17 00:01 00:21 01:21 Temperature 97.7 F Pulse Rate 74 Respiratory 16 16 16 Rate Blood Pressure 113/62 (mmHg) O2 Sat by Pulse 96 Oximetry 04/20/17 04/20/17 04/20/17 04:10 05:45 07:47 Temperature 98.6 F 97.5 F Pulse Rate 56 60 Respiratory 16 16 Rate Blood Pressure 116/65 110/61 (mmHg) O2 Sat by Pulse 97 96 Oximetry 04/20/17 04/20/17 04/20/17 08:00 08:25 09:45 Temperature Pulse Rate 60 Respiratory 16 17 18 Rate Blood Pressure (mmHg) O2 Sat by Pulse 96 Oximetry 04/20/17 04/20/17 10:45 11:44 Temperature 97.3 F Pulse Rate 61 Respiratory 18 12 Rate Blood Pressure 110/52 (mmHg) O2 Sat by Pulse 97 Oximetry Oxygen Devices in Use Now: None Appearance: Improved, no acute distress. Ears/Nose/Mouth/Throat: NL Teeth, Lips, Gums, Mucous Membranes Moist Neck: NL Appearance and Movements; NL JVP Respiratory: Symmetrical Chest Expansion and Respiratory Effort, Clear to Auscultation Abdominal: - - Much less tender today in LLQ. No guarding or rebound. Nondistended. Extremities: No Edema Skin: No Rash or Ulcers Neurological: Alert and Oriented x 3 Result Diagrams: 04/19/17 10:08 04/19/17 10:08 Additional Lab and Data: Laboratory Results - last 24 hr 04/19/17 04/19/17 10:08 10:08 WBC 8.4 RBC 4.05 Hgb 12.1 Hct 36 MCV 89 MCH 30 MCHC 34 RDW 13 Plt Count 167 MPV 9 Neut % (Auto) 63.5 Lymph % (Auto) 21.8 L [place] % (Auto) 10.2 H Eos % (Auto) 3.4 Baso % (Auto) 1.1 Absolute Neuts (auto) 5.3 Absolute Lymphs (auto) 1.8 Absolute Monos (auto) 0.9 H Absolute Eos (auto) 0.3 Absolute Basos (auto) 0.1 Absolute Nucleated RBC 0 Nucleated RBC % 0 Sodium 141 Potassium 3.6 Chloride 111 Carbon Dioxide 24 Anion Gap 6 BUN 7 Creatinine 0.63 Est GFR ( Amer) 126.6 Est GFR (Non-Af Amer) 98.5 BUN/Creatinine Ratio 11.1 Glucose 84 Calcium 8.6 Assess/Plan/Problems-Billing Assessment: 56 year old female PMH multiple abdominal surgeries and s/p lysis of adhesions 2007, presenting with LLQ abdominal pain, nausea/dry heaves, previous diarrhea now [address] abd/pelvis consistent with ileus/partial obstruction and possible mild colitis/diverticulitis. Now improving pain, and had first BM 04/20. Likely d/c 04/21 on oral cipro/flagyl. - Patient Problems (1) LLQ abdominal pain Current Visit: Yes Status: Acute Code(s): R10.32 - LEFT LOWER QUADRANT PAIN SNOMED Code(s): 267680815 Comment: Likely diverticulitis with component of ileus/constipation/partial sbo. Hx of ANURAG, multiple abdominal surgeries. Lactic Acid drawn and wnl. lipase wnl. s/p CT abd/pelvis. Increased bowel regimen and finally had BM 04/20. Advanced to full liquid diet with ADAT. pain controlled with toradol. d/c morphine Serial abdominal exams Continue cipro/flagyl. With plan po on discharge. (2) Partial small bowel obstruction Current Visit: Yes Status: Acute Code(s): K56.69 - OTHER INTESTINAL OBSTRUCTION SNOMED Code(s): 840979526 Comment: had BM 04/20. ADAT (3) Diverticulitis Current Visit: Yes Status: Acute Comment: cipro/flagyl rest of plan as above. Status and Disposition: medicine inpatient. Likely d/c 04/21 with oral flagyl/cipro Attending: Luis A Coppola
[2017-04-20] MEDS: PROCHLORPERAZINE INJ 5 MG/ML 2 ML VIAL IV PRN (18:12)
[2017-04-21] MEDS: NS 0.9% 1000 ML* 1,000 ML IV SCH (03:12)
[2017-04-21] MEDS: metroNIDAZOLE IV 500 MG/100ML* 500 MG/100 ML BAG IVPB SCH (03:12)
[2017-04-21] MEDS: PROCHLORPERAZINE INJ 5 MG/ML 2 ML VIAL IV PRN (03:18)
[2017-04-21] MEDS: Ciprofloxacin IV(*) 400 MG in D5W 250 ML BAG* 160 ML IVPB SCH (05:08)
[2017-04-21] MEDS: Omeprazole CAP* 20 MG PO SCH (05:09)
[2017-04-21] MEDS: Docusate CAP* 100 MG PO SCH (09:01)
[2017-04-21 09:04] VITALS: BP 133/56
--- NOTE | 2017-04-22 07:29 | DS ---
DISCHARGE SUMMARY: DATE OF ADMISSION: 04/18/17 DATE OF DISCHARGE: 04/21/17 ADMITTING PROVIDER: Simon Powell MD. ATTENDING PHYSICIAN: Luis A Coppola MD. CHIEF COMPLAINT: Left lower quadrant abdominal pain, constipation, nausea, vomiting. PRINCIPAL DIAGNOSIS: Diverticulitis and partial small bowel obstruction. SECONDARY DIAGNOSES: 1. Obstructive sleep apnea. 2. Hypothyroidism. 3. Asthma. 4. Multiple prior abdominal surgeries. HISTORY OF PRESENT ILLNESS AND HOSPITAL COURSE: Ms. Lima is a 56-year-old female with a past medical history as above, who presented with approximately 1 month of epigastric pain associated with intermittent diarrhea and constipation. Of note, she was a vague, evasive historian in the emergency room the night of admission. She stated that her last bowel movement was 3 to 4 days ago, then 2 days of left lower quadrant pain associated with nausea and sweating prior to admission. She was quite tender on examination in the left lower quadrant, although no rebound tenderness or guarding initially. She had a CT abdomen and pelvis, which was officially read as having a dilatation up to 4.1 cm with air- fluid levels at the site of the small bowel anastomotic site in the mid level upper abdomen indicating a degree of ileus and/or partial obstruction; however, contrast was seen all the way to the splenic flexure. There was rectosigmoid diverticulosis along with mild inflammatory changes surrounding the sigmoid colon, which could be consistent with diverticulitis in the current clinical setting. The patient was started on IV Cipro and Flagyl. The pain was controlled initially with Dilaudid, but seemed to increase her nausea and switched to morphine and also ketorolac. The patient remained quite tender in the left lower quadrant for the first few days of admission. The patient's bowel regimen was titrated up and eventually had a bowel movement, which seemed to relieve some of the pain by second day of bowel movements. She had declined placement of NG tube given her constipation and minimal flatus initially; however, flatus did improve throughout admission. The patient's pain was completely resolved by day of discharge and she was having regular bowel movements. She will be sent home on oral Cipro, Flagyl, and bowel regimen to include Colace, MiraLAX, and Senokot. She was advised to follow up with her primary care provider and may need to consider re-evaluation by general surgeon for a potential further lysis of adhesions if evidence of partial bowel obstructions occur in the future. DISCHARGE MEDICATIONS: Include: 1. MiraLAX 17 g p.o. daily. 2. Zofran 4 mg p.o. tab q.6 hours p.r.n. for nausea. 3. Flagyl 500 mg p.o. t.i.d. for 6 more days. 4. Ciprofloxacin 500 mg p.o. b.i.d. for 6 more days (total course of antibiotics 10 days). DISCHARGE DISPOSITION: Home. DISCHARGE DIET: High fiber. TIME SPENT: 35 minutes. [id number]/[facility] #: [id number] MTDD
== END 2017-04-21 11:00 | disposition home or self-care (01) | DRG 244 ==
LOC: ED 17:40 → SSU 04-18 04:14 → OBSVTOIN 04-19 09:30
PROVIDERS: ADMIT Hospitalist; ATTEND Internal Medicine
PROC: 3E0234Z Introduction of Serum, Toxoid and Vaccine into Muscle, Percutaneous Approach (ICD-10-PCS; principal; 2017-04-19)
PROC: 5A09357 Assistance with Respiratory Ventilation, Less than 24 Consecutive Hours, Continuous Positive Airway Pressure (ICD-10-PCS; 2017-04-19)
DX: K57.32 Diverticulitis of large intestine without perforation or abscess without bleeding (principal); K56.7 Ileus, unspecified; E03.9 Hypothyroidism, unspecified; G47.33 Obstructive sleep apnea (adult) (pediatric); N35.9 Urethral stricture, unspecified; J45.909 Unspecified asthma, uncomplicated; E78.00 Pure hypercholesterolemia, unspecified; Z90.721 Acquired absence of ovaries, unilateral; Z85.41 Personal history of malignant neoplasm of cervix uteri; Z82.49 Family history of ischemic heart disease and other diseases of the circulatory system; Z83.3 Family history of diabetes mellitus; Z88.0 Allergy status to penicillin; Z88.6 Allergy status to analgesic agent; Z98.51 Tubal ligation status; Z87.891 Personal history of nicotine dependence; Z90.49 Acquired absence of other specified parts of digestive tract; Z90.710 Acquired absence of both cervix and uterus; Z82.3 Family history of stroke; Z80.3 Family history of malignant neoplasm of breast; Z80.0 Family history of malignant neoplasm of digestive organs; Z23 Encounter for immunization
CPT/HCPCS: 36415; 74177; 80048; 80053; 81003; 83605; 83690; 83735; 85025; 86140; 90686; A9270-GY; G0378; J0744; J0780; J1170; J1885; J2270; J2405; Q9967

== ENCOUNTER 2017-07-09 10:46 | Emergency (ER) | payer OTHER ==
[2017-07-09 14:36] LABS: Hematocrit 42 % (35-47); Hemoglobin 14.2 g/dl (12.0-16.0); Mean Corpuscular HGB Conc 34 g/dl (31-36); Mean Corpuscular Hemoglobin 30 pg (27-31); Mean Corpuscular Volume 89 fL (80-97); Mean Platelet Volume 9 um3 (7.4-10.4); Red Blood Count 4.71 10^6/ul (4.0-5.4); Red Cell Distribution Width 13 % (10.5-15); White Blood Count 10.4 10^3/ul (3.5-10.8)
[2017-07-09 14:54] LABS: Albumin 4.5 g/dL (3.2-5.2); BUN/Creatinine Ratio 17.3 (8-20); Calcium 9.9 mg/dL (8.6-10.3); EGFR African American 103.6 (>60); EGFR Non-African American 80.5 (>60); Globulin 3.2 g/dL (2-4); Magnesium 2.1 mg/dL (1.9-2.7); Potassium 3.8 mmol/L (3.5-5.0); Total Bilirubin 0.5 mg/dL (0.2-1.0); Total Protein 7.7 g/dL (6.4-8.9)
--- NOTE | 2017-07-09 15:01 | RAD ---
HISTORY: Headache, dizziness COMPARISONS: April 26, 2015 TECHNIQUE: Multiple contiguous axial CT scans were obtained of the head without intravenous contrast. FINDINGS: HEMORRHAGE/INFARCT: There is no hemorrhage or acute infarct. MASSES/SHIFT: There is no mass or shift. EXTRA-AXIAL SPACES: There are no extra-axial fluid collections. SULCI AND VENTRICLES: The sulci and ventricles are normal in size and position for the patient's stated age. CEREBRUM: There are no focal parenchymal abnormalities. BRAINSTEM: There are no focal parenchymal abnormalities. CEREBELLUM: There are no focal parenchymal abnormalities. VESSELS: The vessels are grossly normal. PARANASAL SINUSES: The paranasal sinuses are clear. ORBITS: The orbits are unremarkable. BONES AND SOFT TISSUE: No bone or soft tissue abnormalities are noted. OTHER: None IMPRESSION: NO ACUTE INTRACRANIAL PATHOLOGY.
[2017-07-09 15:23] LABS: TSH (Thyroid Stimulating Horm) 1.89 mcIU/mL (0.34-5.60)
[2017-07-09 15:41] LABS: Urine Bilirubin Negative (Negative); Urine Glucose Negative (Negative); Urine Nitrite Negative (Negative)
[2017-07-09] MEDS ORDERED: NS 0.9% 1000 ML* 1,000 ML IV ONE (15:46)
[2017-07-09] MEDS ORDERED: hydrOXYzine HCL TAB* 50 MG PO ONE (15:46)
[2017-07-09] MEDS ORDERED: Ketorolac INJ* 30 MG/ML 1 ML VIAL IV ONE (17:46)
[2017-07-09] MEDS ORDERED: Metoclopramide IV* 5 MG/ML 2 ML VIAL IV ONE (17:46)
[2017-07-09] MEDS ORDERED: diPHENhydraMINE IV* 50 MG/ML 1 ml VIAL (BENADRYL) IV ONE (17:46)
[2017-07-09 19:12] VITALS: BP 99/59
--- NOTE | 2017-07-09 19:42 | ED ---
Desmond Muhammad Julia, scribed for Uri Jackson MD on 07/09/17 at 1545 . Dizziness - HPI Summary HPI Summary: Patient is a 56 year old female presenting to [facility] with a chief complaint of constant dizziness and headaches for the past few days. . Patient reports dizziness while seated and a tremor of the LUE beginning today. Patient describes her headache as pushing on both sides and her dizziness as lightheaded. Patient quit smoking in January 2017, and uses CPAP at night. - History Of Current Complaint Chief Complaint: EDDizziness Stated Complaint: DIZZY,LIGHTHEADED X 3 DAYS Time Seen by Provider: 07/09/17 13:54 Hx Obtained From: Patient Onset/Duration: Still Present Timing: Constant Character: Lightheaded Alleviating Factor(s): Nothing - Allergies/Home Medications Allergies/Adverse Reactions: Allergies Allergy/AdvReac Type Severity Reaction Status Date / Time Codeine Allergy Mild Hives Verified 11/08/16 10:01 Penicillins Allergy Mild Rash Verified 11/08/16 10:01 Aspirin AdvReac Mild Vomiting Verified 04/18/17 21:26 PMH/Surg Hx/FS Hx/Imm Hx Endocrine/Hematology History: Reports: Hx Blood Transfusions - Post bleeding, Hx Thyroid Disease, Hx Anemia Denies: Hx Anticoagulant Therapy, Hx Diabetes, Other Endocrine/Hematological Disorders Cardiovascular History: Reports: Hx Hypercholesterolemia, Other Cardiovascular Problems/Disorders - HYPERCHOLESTEROLEMIA Denies: Hx Angina, Hx Coronary Artery Disease, Hx Hypertension, Hx Myocardial Infarction, Hx Pacemaker/ICD, Hx Peripheral Vascular Disease, Hx Valvular Heart Disease Respiratory History: Reports: Hx Asthma, Hx Sleep Apnea - Has Cpap at home Denies: Hx Chronic Obstructive Pulmonary Disease (COPD), Other Respiratory Problems/Disorders GI History: Reports: Hx Gall Bladder Disease - Gall bladder removed, Hx Obstructive Bowel, Hx Pyloric Stenosis, Hx Ulcer, Other GI Disorders - Adhesions , H Pylori, SBO History: Reports: Other Problems/Disorders - 4yrs ago, urethral stenosis Denies: Hx Renal Disease Musculoskeletal History: Reports: 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, Other Musculoskeletal History - s/p bilateral carpal tunnel release Sensory History: Denies: Hx Cataracts, Hx Contacts or Glasses, Hx Glaucoma, Hx Hearing Aid, Other Sensory Impairments Opthamlomology History: Denies: Hx Cataracts, Hx Contacts or Glasses, Hx Glaucoma, Other Sensory Impairments Neurological History: Reports: Other Neuro Impairments/Disorders - PAIN CLINIC PATIENT Denies: Hx Dementia, Hx Seizures Psychiatric History: Reports: Hx Depression Denies: Hx Anxiety, Hx Panic Disorder, Hx Substance Abuse, Other Psychiatric Issues/Disorders - Cancer History Cancer Type, Location and Year: Cervical CA. SHAINA - Surgical History Surgery Procedure, Year, and Place: C SECTIONS 82, 83, 85, 1988-oophorectomy, 1994 [place], 1997 (right) shouler rotator cuff, 1999 (right) knee arthroscopy, 2000 cholecystectomy, 10/23 [facility] (left) shoulder rotator cuff, 06[place] [facility] [place] w/CLOtest & biopsy, 02/26 [facility] [place] carpal tunnel, 04/28 [facility] [place], 05/30 [facility] [place] w/CLOtest & gastric, antral biopsy, [facility] [place] w/duodenal & gastric. biopsy, 09/28 [facility] [place] exp lap & lysis of adhesions, [CONT.'] 10/29 [facility] [place] small obstruction, 03/31 [facility] [place] car[place] tunnel, 03/01 [facility] [place] col[place] w/biopsy of vaginal cuff & genital wart ablation. Rt FOOT - REPAIRED 2ND TOE - W/ SCREW. 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 Hx Anesthesia Reactions: No Infectious Disease History: No Infectious Disease History: Denies: Hx Clostridium Difficile, Hx Hepatitis, Hx Human Immunodeficiency Virus (HIV), Hx of Known/Suspected MRSA, Hx Shingles, Hx Tuberculosis, Hx Known/ Suspected VRE, Hx Known/Suspected VRSA, History Other Infectious Disease, Traveled Outside the [place] in Last 30 Days - Family History Known Family History: Positive: Cardiac Disease, Diabetes, Other - Negative asthma - Social History Alcohol Use: Occasionally Hx Substance Use: No Substance Use Type: Reports: None Hx Tobacco Use: Yes Smoking Status (MU): Former Smoker Type: Cigarettes Amount Used/How Often: 1 pk/day Length of Time of Smoking/Using Tobacco: 30 years Have You Smoked in the Last Year: Yes Review of Systems Negative: Fever Neurological: Other - dizziness Positive: Headache All Other Systems Reviewed And Are Negative: Yes Physical Exam - Summary Physical Exam Summary: Appearance: The patient is well-nourished in no acute distress and in no acute pain. Skin: The skin is warm and dry and skin color reflects adequate perfusion. HEENT: The head is normocephalic and atraumatic. The pupils are equal and reactive. The conjunctivae are clear and without drainage. Nares are patent and without drainage. Mouth reveals moist mucous membranes and the throat is without erythema and exudate. The external ears are intact. The ear canals are patent and without drainage. The tympanic membranes are intact. Neck: the neck is supple with full range of motion and non-tender. There are no carotid bruits. There is no neck vein distension. Respiratory: Chest is non-tender. Lungs are clear to auscultation and breath sounds are symmetrical and equal. Cardiovascular: Heart is regular rate and rhythm. There is no murmur or rub auscultated. There is no peripheral edema and pulses are symmetrical and equal. Abdomen: The abdomen is soft and non-tender. There are normal bowel sounds heard in all four quadrants and there is no organomegaly palpated. Musculoskeletal: There is no back tenderness noted. Extremities are non-tender with full range of motion. There is good capillary refill. There is no peripheral edema or calf tenderness elicited. Neurological: Patient is alert and oriented to person, place and time. The patient has symmetrical motor strength in all four extremities. Cranial nerves are grossly intact. Deep tendon reflexes are symmetrical and equal in all four extremities. Psychiatric: The patient has an appropriate affect and does not exhibit any anxiety or depression. Triage Information Reviewed: Yes Vital Signs On Initial Exam: Initial Vitals Temp Pulse Resp BP Pulse Ox 97.5 F 70 20 129/76 98 07/09/17 10:50 07/09/17 10:50 07/09/17 10:50 07/09/17 10:50 07/09/17 10:50 Vital Signs Reviewed: Yes - [place] Coma Scale Coma Scale Total: 15 Diagnostics - Vital Signs Vital Signs Temp Pulse Resp BP Pulse Ox 07/09/17 15:00 57 94 07/09/17 14:47 58 97 07/09/17 13:19 98.3 F 64 18 121/77 98 07/09/17 10:50 97.5 F 70 20 129/76 98 - Laboratory Lab Results: Lab Results 07/09/17 07/09/17 07/09/17 Range/Units 12:25 12:25 12:25 WBC 10.4 (3.5-10.8) 10^3/ul RBC 4.71 (4.0-5.4) 10^6/ul Hgb 14.2 (12.0-16.0) g/dl Hct 42 (35-47) % MCV 89 (80-97) fL MCH 30 (27-31) pg MCHC 34 (31-36) g/dl RDW 13 (10.5-15) % Plt Count 222 (150-450) 10^3/ul MPV 9 (7.4-10.4) um3 Neut % (Auto) 59.5 (38-83) % Lymph % (Auto) 30.4 (25-47) % [place] % (Auto) 7.0 (1-9) % Eos % (Auto) 2.3 (0-6) % Baso % (Auto) 0.8 (0-2) % Absolute Neuts (auto) 6.2 (1.5-7.7) 10^3/ul Absolute Lymphs (auto) 3.2 (1.0-4.8) 10^3/ul Absolute Monos (auto) 0.7 (0-0.8) 10^3/ul Absolute Eos (auto) 0.2 (0-0.6) 10^3/ul Absolute Basos (auto) 0.1 (0-0.2) 10^3/ul Absolute Nucleated RBC 0 10^3/ul Nucleated RBC % 0 INR (Anticoag Therapy) 0.92 (0.77-1.02) Sodium 137 (133-145) mmol/L Potassium 3.8 (3.5-5.0) mmol/L Chloride 104 (101-111) mmol/L Carbon Dioxide 28 (22-32) mmol/L Anion Gap 5 (2-11) mmol/L BUN 13 (6-24) mg/dL Creatinine 0.75 (0.51-0.95) mg/dL Est GFR ( Amer) 103.6 (>60) Est GFR (Non-Af Amer) 80.5 (>60) BUN/Creatinine Ratio 17.3 (8-20) Glucose 88 (70-100) mg/dL Lactic Acid (0.5-2.0) mmol/L Calcium 9.9 (8.6-10.3) mg/dL Magnesium 2.1 (1.9-2.7) mg/dL Total Bilirubin 0.50 (0.2-1.0) mg/dL AST 25 (13-39) U/L ALT 63 H (7-52) U/L Alkaline Phosphatase 96 (34-104) U/L Troponin I 0.00 (<0.04) ng/mL Total Protein 7.7 (6.4-8.9) g/dL Albumin 4.5 (3.2-5.2) g/dL Globulin 3.2 (2-4) g/dL Albumin/Globulin Ratio 1.4 (1-3) TSH 1.89 (0.34-5.60) mcIU/mL 07/09/ Range/Units 12:25 WBC (3.5-10.8) 10^3/ul RBC (4.0-5.4) 10^6/ul Hgb (12.0-16.0) g/dl Hct (35-47) % MCV (80-97) fL MCH (27-31) pg MCHC (31-36) g/dl RDW (10.5-15) % Plt Count (150-450) 10^3/ul MPV (7.4-10.4) um3 Neut % (Auto) (38-83) % Lymph % (Auto) (25-47) % [place] % (Auto) (1-9) % Eos % (Auto) (0-6) % Baso % (Auto) (0-2) % Absolute Neuts (auto) (1.5-7.7) 10^3/ul Absolute Lymphs (auto) (1.0-4.8) 10^3/ul Absolute Monos (auto) (0-0.8) 10^3/ul Absolute Eos (auto) (0-0.6) 10^3/ul Absolute Basos (auto) (0-0.2) 10^3/ul Absolute Nucleated RBC 10^3/ul Nucleated RBC % INR (Anticoag Therapy) (0.77-1.02) Sodium (133-145) mmol/L Potassium (3.5-5.0) mmol/L Chloride (101-111) mmol/L Carbon Dioxide (22-32) mmol/L Anion Gap (2-11) mmol/L BUN (6-24) mg/dL Creatinine (0.51-0.95) mg/dL Est GFR ( Amer) (>60) Est GFR (Non-Af Amer) (>60) BUN/Creatinine Ratio (8-20) Glucose (70-100) mg/dL Lactic Acid 0.7 (0.5-2.0) mmol/L Calcium (8.6-10.3) mg/dL Magnesium (1.9-2.7) mg/dL Total Bilirubin (0.2-1.0) mg/dL AST (13-39) U/L ALT (7-52) U/L Alkaline Phosphatase (34-104) U/L Troponin I (<0.04) ng/mL Total Protein (6.4-8.9) g/dL Albumin (3.2-5.2) g/dL Globulin (2-4) g/dL Albumin/Globulin Ratio (1-3) TSH (0.34-5.60) mcIU/mL Result Diagrams: 07/09/17 12:25 07/09/17 12:25 Lab Statement: Any lab studies that have been ordered have been reviewed, and results considered in the medical decision making process. - CT Brain CT Interpretation Completed By: Radiologist - NO ACUTE INTRACRANIAL PATHOLOGY. ED doctor has reviewed this radiology report. - EKG 15:01 Cardiac Rate: Bradycardia EKG Rhythm: Sinus Bradycardia - at 51 BPM EKG Interpretation: This EKG reveals NAC. Dizzy Course/Dx - Course Course Of Treatment: Ms. Gonzalez presented with an atypical AVILES for several days. She had no menengeal signs whatsoever and her labs were normal. She got complete relief with a 'migrain cocktail' of ketorolac, benadry and reglan. We discussed the possibility of an LP. She has had an epidural in the past. She declined. - Diagnoses Provider Diagnoses: Headache Discharge - Discharge Plan Condition: Stable Disposition: HOME Patient Education Materials: General Headache (ED) Referrals: Heather iPchardo MD [Primary Care Provider] - 3 Days Additional Instructions: RETURN TO THE EMERGENCY DEPARTMENT FOR CHANGING OR WORSENING SYMPTOMS. The documentation as recorded by the Desmond ruiz Julia accurately reflects the service I personally performed and the decisions made by , Uri Jackson MD.
== END 2017-07-09 19:06 | disposition home or self-care (01) ==
LOC: ED 10:46
DX: R51 Headache (principal); R42 Dizziness and giddiness; R00.1 Bradycardia, unspecified; R25.1 Tremor, unspecified; E07.9 Disorder of thyroid, unspecified; E78.00 Pure hypercholesterolemia, unspecified; J45.909 Unspecified asthma, uncomplicated; F32.9 Major depressive disorder, single episode, unspecified; Z85.41 Personal history of malignant neoplasm of cervix uteri; Z90.49 Acquired absence of other specified parts of digestive tract; Z88.6 Allergy status to analgesic agent; Z88.5 Allergy status to narcotic agent; Z88.0 Allergy status to penicillin; Z87.891 Personal history of nicotine dependence
CPT/HCPCS: 36415; 70450; 80053; 81003; 83605; 83735; 84443; 84484; 85025; 85610; 93005; 96361; 96374; 96375; 99283; A9270-GY; J1200; J1885; J2765

== ENCOUNTER 2017-09-16 13:27 | Emergency (ER) | payer OTHER ==
[2017-09-16 15:17] LABS: ABS Basophils 0 10^3/ul (0-0.2); ABS Eosinophils 0.1 10^3/ul (0-0.6); ABS Lymphocytes 2.1 10^3/ul (1.0-4.8); ABS Monocytes 0.8 10^3/ul (0-0.8); ABS Nucleated RBC 0 10^3/ul; Eosinophil % 1.3 % (0-6); Hematocrit 37 % (35-47); Hemoglobin 12.7 g/dl (12.0-16.0); Lymphocyte % 21.1 % (25-47); Mean Corpuscular HGB Conc 34 g/dl (31-36); Mean Corpuscular Hemoglobin 30 pg (27-31); Mean Corpuscular Volume 88 fL (80-97); Mean Platelet Volume 9 um3 (7.4-10.4); Nucleated Red Blood Cells % 0; Platelet Count 235 10^3/ul (150-450); Red Blood Count 4.24 10^6/ul (4.0-5.4); Red Cell Distribution Width 13 % (10.5-15); White Blood Count 10.2 10^3/ul (3.5-10.8)
[2017-09-16 15:32] LABS: EGFR Non-African American 81.8 (>60)
[2017-09-16] MEDS ORDERED: Morphine INJ* 4 MG/ML 1 ML SYRINGE (NEW SYRINGE VERSION) IV ONE (16:37)
[2017-09-16] MEDS ORDERED: Ondansetron INJ* 2 MG/ML VIAL IV ONE (16:37)
[2017-09-16] MEDS ORDERED: Iohexol 300* (CONTRAST) 10 ML SDV IV ONE (16:57)
--- NOTE | 2017-09-16 17:40 | RAD ---
CLINICAL HISTORY: Left lower quadrant pain in a patient with a history of diverticulitis. Relevant surgical history includes total abdominal hysterectomy, cholecystectomy. COMPARISON: Most recent comparison study is dated April 18, 2017 TECHNIQUE: Contrast enhanced CT examination of the abdomen and pelvis from the lung bases through the initial tuberosities. The patient received 100 mL Omnipaque 300 intravenously prior to imaging. FINDINGS: VISUALIZED LUNG BASES: There are hypoventilatory changes in the dependent right lower lobe. There is no pleural effusion. ABDOMEN AND PELVIS: The liver is homogenously hypodense relative to the spleen as was seen on the previous CT examination. The spleen, pancreas and adrenal glands are grossly normal in appearance. The gallbladder is surgically absent with surgical clips in the gallbladder fossa.. The kidneys are normal in appearance without focal mass, calcification or signs of hydronephrosis. Evaluation of the gastrointestinal tract is limited without oral contrast. The small and large bowel are not distended. The appendix is not discretely visualized but there are no focal inflammatory changes in the base of the cecum consistent with appendicitis. There are distal colonic diverticula that become more concentrated at the sigmoid colon. There is infiltration of the mesenteric fat surrounding the sigmoid colon. There is no drainable fluid collection or macroscopic free air. There is questionable mild thickening of the sigmoid colon. There is no gross retroperitoneal or mesenteric lymphadenopathy. The uterus is surgically absent consistent with the patient's reported surgical history. The abdominal aorta and iliac arteries are normal in course and diameter. Degenerative changes include multilevel loss of intervertebral disc height involving the lower thoracic and lumbar spine.There are no sinister bone lesions. IMPRESSION: 1. Acute CT findings are most consistent with sigmoid diverticulitis. 2. Chronic, degenerative and postsurgical changes described in the body the report unlikely to be directly related to the patient's current presentation.
[2017-09-16] MEDS ORDERED: Ciprofloxacin TAB* 500 MG PO ONE (17:41)
[2017-09-16] MEDS ORDERED: metroNIDAZOLE TAB* 250 MG PO ONE (17:41)
[2017-09-16 19:11] VITALS: BP 123/74
--- NOTE | 2017-09-17 14:25 | ED ---
Blaine Muhammad Angela, scribed for Jovanny Ackerman MD on 09/16/17 at 1620 . Abdominal Pain/Female - HPI Summary HPI Summary: This pt is a 56 y/o female presenting to [facility] c/o left lower quadrant abd pain x5 days. She additionally states she has no appetite. Pt reports she has a hx of diverticulitis and states this pain feels like it. She rates her pain 9/10 in severity. Pt denies dysuria, hematuria, back pain, diarrhea, bloody stools, nausea, vomiting. She was in the hospital in April 2017 for diverticulitis, this was the her first and last episode. PMhx: thyroid disease, asthma, appendectomy. Pt takes thyroid medication, Singulair, and vitamin D. - History of Current Complaint Chief Complaint: EDAbdPain Stated Complaint: ABD PAIN Hx Obtained From: Patient Onset/Duration: Lasting Days, Still Present Timing: Days Severity Currently: Severe Pain Intensity: 9 Pain Scale Used: 0-10 Numeric Location: Discrete At: LLQ Radiates: No Aggravating Factor(s): Nothing Alleviating Factor(s): Nothing Associated Signs and Symptoms: Negative: Fever, Back Pain, Constipation, Blood in Stool, Urinary Symptoms, Nausea, Vomiting, Diarrhea Allergies/Adverse Reactions: Allergies Allergy/AdvReac Type Severity Reaction Status Date / Time aspirin Allergy Vomiting Verified 09/16/17 13:33 codeine Allergy Hives Verified 09/16/17 13:32 Penicillins Allergy Hives Verified 09/16/17 13:32 Home Medications: Home Medications Cholecalciferol TAB* [Vitamin D TAB*] 2,000 units PO DAILY 09/16/17 [History Confirmed 09/16/17] Fluticasone NASAL SPRAY 50MCG* [Flonase NASAL SPRAY 50MCG*] 2 spray BOTH NARES DAILY 09/16/17 [History Confirmed 09/16/17] Levothyroxine TAB* [Synthroid TAB*] 75 mcg PO DAILY 09/16/17 [History Confirmed 09/16/17] PMH/Surg Hx/FS Hx/Imm Hx Endocrine/Hematology History: Reports: Hx Blood Transfusions - Post bleeding, Hx Thyroid Disease, Hx Anemia Denies: Hx Anticoagulant Therapy, Hx Diabetes, Other Endocrine/Hematological Disorders Cardiovascular History: Reports: Hx Hypercholesterolemia, Other Cardiovascular Problems/Disorders - HYPERCHOLESTEROLEMIA Denies: Hx Angina, Hx Coronary Artery Disease, Hx Hypertension, Hx Myocardial Infarction, Hx Pacemaker/ICD, Hx Peripheral Vascular Disease, Hx Valvular Heart Disease Respiratory History: Reports: Hx Asthma, Hx Sleep Apnea - Has Cpap at home Denies: Hx Chronic Obstructive Pulmonary Disease (COPD), Other Respiratory Problems/Disorders GI History: Reports: Hx Gall Bladder Disease - Gall bladder removed, Hx Obstructive Bowel, Hx Pyloric Stenosis, Hx Ulcer, Other GI Disorders - Adhesions , H Pylori, SBO, diverticulitis History: Reports: Other Problems/Disorders - 4yrs ago, urethral stenosis Denies: Hx Renal Disease Musculoskeletal History: Reports: 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, Other Musculoskeletal History - s/p bilateral carpal tunnel release Sensory History: Denies: Hx Cataracts, Hx Contacts or Glasses, Hx Glaucoma, Hx Hearing Aid, Other Sensory Impairments Opthamlomology History: Denies: Hx Cataracts, Hx Contacts or Glasses, Hx Glaucoma, Other Sensory Impairments Neurological History: Reports: Other Neuro Impairments/Disorders - PAIN CLINIC PATIENT Denies: Hx Dementia, Hx Seizures Psychiatric History: Reports: Hx Depression Denies: Hx Anxiety, Hx Panic Disorder, Hx Substance Abuse, Other Psychiatric Issues/Disorders - Cancer History Cancer Type, Location and Year: Cervical CA. SHAINA - Surgical History Surgery Procedure, Year, and Place: C SECTIONS 82, 83, 85, 1989-oophorectomy, 1994 [place], 1997 (right) shouler rotator cuff, 1999 (right) knee arthroscopy, 2000 cholecystectomy, 10/23 [facility] [place] [place] (left) shoulder rotator cuff, 06/26 [facility] [place] [place]. gastrocsopy w/CLOtest & biopsy, 02/26 [facility] [place] [place] (right) carpal tunnel, 04/28 [facility] [place] [place] (left ) carpal tunnel, 05/30 [facility] [place] [place] gastroscopy w/CLOtest & gastric, antral biopsy, [facility] [place] [place] gastroscopy w/duodenal & gastric. biopsy, 09/28 [facility] [place] [place] exp lap & lysis of adhesions, [CONT.'] 10/29 [facility] [place] [place] partial small obstruction, 03/31 [facility] [place] [place] (left) carpal tunnel, 03/01 [facility] [place] [place] colposcopy w/biopsy of vaginal cuff & genital wart ablation. Rt FOOT - REPAIRED 2ND TOE - W/ SCREW. 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 Hx Anesthesia Reactions: No Infectious Disease History: No Infectious Disease History: Denies: Hx Clostridium Difficile, Hx Hepatitis, Hx Human Immunodeficiency Virus (HIV), Hx of Known/Suspected MRSA, Hx Shingles, Hx Tuberculosis, Hx Known/ Suspected VRE, Hx Known/Suspected VRSA, History Other Infectious Disease, Traveled Outside the [place] in Last 30 Days - Family History Known Family History: Positive: Cardiac Disease, Diabetes, Other - Negative asthma - Social History Alcohol Use: None Hx Substance Use: No Substance Use Type: Reports: None Hx Tobacco Use: Yes Smoking Status (MU): Former Smoker Type: Cigarettes Amount Used/How Often: 1 pk/day Length of Time of Smoking/Using Tobacco: 30 years Have You Smoked in the Last Year: Yes Review of Systems Negative: Fever, Chills Negative: Erythema Negative: Sore Throat Negative: Chest Pain Negative: Shortness Of Breath, Cough Positive: Abdominal Pain. Negative: Vomiting, Diarrhea, Nausea, Other - bloody stools Negative: dysuria, hematuria Negative: Myalgia, Edema, Other - back pain Negative: Rash Neurological: Other - NEG: dizziness All Other Systems Reviewed And Are Negative: Yes Physical Exam - Summary Physical Exam Summary: Constitutional: Well-developed, Well-nourished, Alert. (-) Distressed Skin: Warm, Dry HENT: Normocephalic; Atraumatic Eyes: Conjunctiva normal Neck: Musculoskeletal ROM normal neck. (-) JVD, (-) Stridor, (-) Tracheal deviation Cardio: Rhythm regular, rate normal, Heart sounds normal; Intact distal pulses; The pedal pulses are 2+ and symmetric. Radial pulses are 2+ and symmetric. (-) Murmur Pulmonary/Chest wall: Effort normal. (-) Respiratory distress, (-) Wheezes, (-) Rales Abd: Soft, Left lower quadrant and right lower quadrant tenderness, Suprapubic tenderness, (-) Distension, (-) Guarding, (-) Rebound Musculoskeletal: (-) Edema Lymph: (-) Cervical adenopathy Neuro: Alert, Oriented x3 Psych: Mood and affect Normal Triage Information Reviewed: Yes Vital Signs On Initial Exam: Initial Vitals Temp Pulse Resp BP Pulse Ox 97.6 F 77 16 135/100 99 09/16/17 13:30 09/16/17 13:30 09/16/17 13:30 09/16/17 13:30 02/26/18 13:30 Vital Signs Reviewed: Yes Diagnostics - Vital Signs Vital Signs Temp Pulse Resp BP Pulse Ox 09/16/17 13:30 97.6 F 77 16 135/100 99 - Laboratory Lab Results: Lab Results 09/16/17 09/16/17 09/16/17 Range/Units 15:02 15:02 15:02 WBC 10.2 (3.5-10.8) 10^3/ul RBC 4.24 (4.0-5.4) 10^6/ul Hgb 12.7 (12.0-16.0) g/dl Hct 37 (35-47) % MCV 88 (80-97) fL MCH 30 (27-31) pg MCHC 34 (31-36) g/dl RDW 13 (10.5-15) % Plt Count 235 (150-450) 10^3/ul MPV 9 (7.4-10.4) um3 Neut % (Auto) 69.3 (38-83) % Lymph % (Auto) 21.1 L (25-47) % [place] % (Auto) 7.8 H (0-7) % Eos % (Auto) 1.3 (0-6) % Baso % (Auto) 0.5 (0-2) % Absolute Neuts (auto) 7.0 (1.5-7.7) 10^3/ul Absolute Lymphs (auto) 2.1 (1.0-4.8) 10^3/ul Absolute Monos (auto) 0.8 (0-0.8) 10^3/ul Absolute Eos (auto) 0.1 (0-0.6) 10^3/ul Absolute Basos (auto) 0 (0-0.2) 10^3/ul Absolute Nucleated RBC 0 10^3/ul Nucleated RBC % 0 Sodium 139 (133-145) mmol/L Potassium 3.8 (3.5-5.0) mmol/L Chloride 106 (101-111) mmol/L Carbon Dioxide 26 (22-32) mmol/L Anion Gap 7 (2-11) mmol/L BUN 9 (6-24) mg/dL Creatinine 0.74 (0.51-0.95) mg/dL Est GFR ( Amer) 105.2 (>60) Est GFR (Non-Af Amer) 81.8 (>60) BUN/Creatinine Ratio 12.2 (8-20) Glucose 95 (70-100) mg/dL Lactic Acid 1.3 (0.5-2.0) mmol/L Calcium 10.0 (8.6-10.3) mg/dL Total Bilirubin 0.70 (0.2-1.0) mg/dL AST 19 (13-39) U/L ALT 30 (7-52) U/L Alkaline Phosphatase 90 (34-104) U/L C-Reactive Protein 42.06 H (< 5.00) mg/L Total Protein 7.4 (6.4-8.9) g/dL Albumin 4.3 (3.2-5.2) g/dL Globulin 3.1 (2-4) g/dL Albumin/Globulin Ratio 1.4 (1-3) Lipase 14 (11.0-82.0) U/L Result Diagrams: 09/16/17 15:02 09/16/17 15:02 Lab Statement: Any lab studies that have been ordered have been reviewed, and results considered in the medical decision making process. - CT Abdomen/Pelvis CT CT Interpretation: Positive (See Comments) - IMPRESSION: 1. Acute CT findings are most consistent with sigmoid diverticulitis. 2. Chronic, degerative and postsurgical changes described in the body the report unlikely to be directly related to the patient's current presentation. Dr. Ackerman has reviewed this radiology report. CT Interpretation Completed By: Radiologist Abdominal Pain Fem Course/Dx - Course Course Of Treatment: In the ED course the pt was given Zofran and morphine. Lab work and CT abdomen/pelvis were obtained. CT reveals 1. Acute CT findings are most consistent with sigmoid diverticulitis. 2. Chronic, degerative and postsurgical changes described in the body the report unlikely to be directly related to the patient's current presentation. Pt will be discharged with prescriptions for ciprofloxacin, Flagyl, and tramadol. She is advised to follow up with her PCP in 2-3 days. - Diagnoses Provider Diagnoses: Diverticulitis Discharge - Discharge Plan Condition: Stable Disposition: HOME Prescriptions: Ciprofloxacin TAB* [Cipro 500 MG TAB*] 500 mg PO BID #42 tab metroNIDAZOLE [Flagyl 500 MG TAB] 500 mg PO TID #63 tab traMADol TAB* [Ultram*] 50 mg PO Q6HR PRN #12 tab MDD 4 PRN Reason: Pain - Moderate To Severe Patient Education Materials: Diverticulitis (ED) Referrals: Heather Pichardo MD [Primary Care Provider] - 2 Days (in 2-3 days.) Additional Instructions: Follow up with your primary care provider in 2-3 days. RETURN TO THE EMERGENCY DEPARTMENT FOR CHANGING OR WORSENING SYMPTOMS. The documentation as recorded by the Blaine ruiz Angela accurately reflects the service I personally performed and the decisions made by , Jovanny Ackerman MD.
== END 2017-09-16 19:10 | disposition home or self-care (01) ==
LOC: ED 13:27
DX: K57.92 Diverticulitis of intestine, part unspecified, without perforation or abscess without bleeding (principal); R10.32 Left lower quadrant pain; Z87.891 Personal history of nicotine dependence
CPT/HCPCS: 36415; 74177; 80053; 83605; 83690; 85025; 86140; 96374; 96375; 99282; A9270-GY; J2270; J2405; Q9967

== ENCOUNTER 2017-09-30 10:51 | Emergency (ER) | payer OTHER ==
[2017-09-30] MEDS ORDERED: Naproxen TAB* 250 MG PO ONE (12:42)
[2017-09-30] MEDS ORDERED: Cyclobenzaprine TAB* 10 MG PO ONE (12:43)
--- NOTE | 2017-09-30 13:34 | RAD ---
Indication: Severe LEFT lower leg pain without proceeding injury. Comparison: July 09, 2016 LEFT ankle exam. Technique: AP and lateral views LEFT lower leg. Report: Soft tissue edema greatest along the lateral aspect at the proximal to mid lower leg and diffuse at the ankle. No conspicuous subcutaneous emphysema or foreign body. Negative for fracture or malalignment. No periosteal reaction, osteolysis, or focal osseous lesion evident. IMPRESSION: Soft tissue edema without additional finding.
--- NOTE | 2017-09-30 14:34 | RAD ---
Indication: Left leg pain and edema. Duplex Doppler sonography of the deep venous system of the left lower extremity deep venous system was performed. Bilaterally the common femoral veins appear patent and compressible. Left proximal greater saphenous vein, proximal deep femoral vein, femoral vein, popliteal vein, posterior tibial veins and peroneal veins appear patent and compressible. IMPRESSION: NO EVIDENCE OF DEEP VENOUS THROMBOSIS IS IDENTIFIED.
[2017-09-30] MEDS ORDERED: traMADol TAB* 50 MG PO ONE (15:24)
[2017-09-30 17:17] VITALS: BP 110/66
--- NOTE | 2017-10-10 10:20 | ED ---
Lower Extremity - HPI Summary HPI Summary: Tomorrow ago schedule a small amount: Well she is ROM the point where now Y - History of Current Complaint Chief Complaint: EDExtremityLower Stated Complaint: WEAKNESS LT LEG Time Seen by Provider: 09/30/17 11:32 Pain Intensity: 5 Pain Scale Used: 0-10 Numeric - Allergies/Home Medications Allergies/Adverse Reactions: Allergies Allergy/AdvReac Type Severity Reaction Status Date / Time aspirin Allergy Vomiting Verified 09/30/17 15:58 codeine Allergy Hives Verified 09/30/17 15:58 Penicillins Allergy Hives Verified 09/30/17 15:58 PMH/Surg Hx/FS Hx/Imm Hx Endocrine/Hematology History: Reports: Hx Blood Transfusions - Post bleeding, Hx Thyroid Disease, Hx Anemia Denies: Hx Anticoagulant Therapy, Hx Diabetes, Other Endocrine/Hematological Disorders Cardiovascular History: Reports: Hx Hypercholesterolemia, Other Cardiovascular Problems/Disorders - HYPERCHOLESTEROLEMIA Denies: Hx Angina, Hx Coronary Artery Disease, Hx Hypertension, Hx Myocardial Infarction, Hx Pacemaker/ICD, Hx Peripheral Vascular Disease, Hx Valvular Heart Disease Respiratory History: Reports: Hx Asthma, Hx Sleep Apnea - Has Cpap at home Denies: Hx Chronic Obstructive Pulmonary Disease (COPD), Other Respiratory Problems/Disorders GI History: Reports: Hx Gall Bladder Disease - Gall bladder removed, Hx Obstructive Bowel, Hx Pyloric Stenosis, Hx Ulcer, Other GI Disorders - Adhesions , H Pylori, SBO History: Reports: Other Problems/Disorders - 4yrs ago, urethral stenosis Denies: Hx Renal Disease Musculoskeletal History: Reports: 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, Other Musculoskeletal History - s/p bilateral carpal tunnel release Sensory History: Denies: Hx Cataracts, Hx Contacts or Glasses, Hx Glaucoma, Hx Hearing Aid, Other Sensory Impairments Opthamlomology History: Denies: Hx Cataracts, Hx Contacts or Glasses, Hx Glaucoma, Other Sensory Impairments Neurological History: Reports: Other Neuro Impairments/Disorders - PAIN CLINIC PATIENT Denies: Hx Dementia, Hx Seizures Psychiatric History: Reports: Hx Depression Denies: Hx Anxiety, Hx Panic Disorder, Hx Substance Abuse, Other Psychiatric Issues/Disorders - Cancer History Cancer Type, Location and Year: Cervical CA. SHAINA - Surgical History Surgery Procedure, Year, and Place: C SECTIONS 82, 83, 85, 1988-oophorectomy, 1994 [place], 1997 (right) shouler rotator cuff, 1999 (right) knee arthroscopy, 2001 [place] [facility] [place], [place] [facility] [place] w/CLOtest & biopsy, 02[place] [facility] [place], 04[place] [facility] [place], 05[place] [facility] [place] w/CLOtest & gastric, antral biopsy, [facility] [place] w/duodenal & gastric. biopsy, 09/28 [facility] [place] lap & lysis of adhesions, [CONT.'] 10/29 [facility] [place] small obstruction, 03/31 [facility] [place], 03[place] [facility] [place] w/biopsy of vaginal cuff & genital wart ablation. Rt FOOT - REPAIRED 2ND TOE - W/ SCREW. 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 Hx Anesthesia Reactions: No - Immunization History Date of Influenza Vaccine: 05/07 Infectious Disease History: No Infectious Disease History: Denies: Hx Clostridium Difficile, Hx Hepatitis, Hx Human Immunodeficiency Virus (HIV), Hx of Known/Suspected MRSA, Hx Shingles, Hx Tuberculosis, Hx Known/ Suspected VRE, Hx Known/Suspected VRSA, History Other Infectious Disease, Traveled Outside the [place] in Last 30 Days - Family History Known Family History: Positive: None, Cardiac Disease, Diabetes, Other - Negative asthma - Social History Alcohol Use: None Hx Substance Use: No Substance Use Type: Reports: None Hx Tobacco Use: Yes Smoking Status (MU): Former Smoker Type: Cigarettes Amount Used/How Often: 1 pk/day Length of Time of Smoking/Using Tobacco: 30 years Have You Smoked in the Last Year: Yes Physical Exam Vital Signs On Initial Exam: Initial Vitals Temp Pulse Resp BP Pulse Ox 100.1 F 90 18 122/81 95 09/30/17 10:57 09/30/17 10:57 09/30/17 10:57 09/30/17 10:57 09/30/17 10:57 Diagnostics - Vital Signs Vital Signs Temp Pulse Resp BP Pulse Ox 09/30/17 17:14 98.1 F 74 16 110/66 97 09/30/17 10:57 100.1 F 90 18 122/81 95 - Laboratory Lab Statement: Any lab studies that have been ordered have been reviewed, and results considered in the medical decision making process. Discharge - Discharge Plan Condition: Stable Disposition: HOME Prescriptions: traMADol TAB* [Ultram*] 50 mg PO Q8H PRN #12 tab MDD 3 PRN Reason: Pain Referrals: Heather Pichardo MD [Primary Care Provider] - Additional Instructions: Ice Elevate Ibuprofen 600 mg 3 times daily Tramadol as needed for pain Follow-up with orthopedics If you develop any color or temperature changes or stiffening of the leg or worsening pain or swelling, return to the ED immediately Take 300 mg gabapentin twice daily - Billing Disposition and Condition Condition: STABLE Disposition: HOME
== END 2017-09-30 17:14 | disposition home or self-care (01) ==
LOC: ED 10:51
DX: R53.1 Weakness (principal); M62.81 Muscle weakness (generalized); Z87.891 Personal history of nicotine dependence
CPT/HCPCS: 99282; A9270-GY

== ENCOUNTER 2018-10-12 18:25 | Emergency (ER) | payer MEDICAID, OTHER ==
--- OUTSIDE RECORDS SUMMARY | 2018-10-12 18:31 | XMS REPORT | Continuity of Care Document ---
:1960 External Reference #:[id number] Author Name Maya Faust Care Team Providers Name Role Phone Cory Alexis M.D. Care Team Information [employer] Unavailable Payers Date Identification Numbers Payment Provider Subscriber Effective: 2018 Policy Number: [id number] Riki Mendoza PayID: [id number] [address] [place] [address] Advance Directives Description No Information Available Problems Date Description Provider Status Onset: 10/27/2015 Asthma without status asthmaticus Anila De La Cruz MD Active Onset: 10/27/2015 Disturbance in sleep behavior Anila De La Cruz MD Active Onset: 10/27/2015 Obesity Anila De La Cruz MD Active Onset: 10/27/2015 Simple chronic bronchitis Anila De La Cruz MD Active Onset: 12/27/2015 Tobacco user Anila De La Cruz MD Active Onset: 03/20/2016 Obstructive sleep apnea syndrome Anila De La Cruz MD Active Onset: 06/19/2017 Femoral neuropathy Haim Abebe M.D. Active Family History Date Family Member(s) Observation Comments General Diabetes General Diabetes General Heart Disease General Heart Disease General Hypertension General Hypertension General Stroke General Stroke General Cancer General Cancer Father at age 57 cardiac issues Mother Alive - DM, heart attack, double by-pass Siblings 5 Brothers; oldest w/2 heart attacks, another brother w/HTN,DM,breast cancer, another lymphoma,HTN, another heart attacks,colostomy, prostate cancer/colon cancer, another lung issues Siblings 6 Sister /kindey cancer and one kidney removed Social History Type Date Description Comments Sex Unknown Marital Status Lives With Lives With Daughter Lives With Son 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 ETOH Use Occasionally consumes alcohol Recreational Drug Use Denies Drug Use Tobacco Use Start: Unknown End: Patient is a former Quit in January 2017, Unknown smoker smoked 1 pack every 2 days for 25 years Smoking Status Reviewed: 09/15/18 Patient is a former Quit in January 2017, smoker smoked 1 pack every 2 days for 25 years Exercise Type/Frequency Exercises sporadically Walking Allergies, Adverse Reactions, Alerts Date Description Reaction Status Severity Comments 07/25/2015 Penicillin Active 07/25/2015 Codeine Active 12/06/2016 Penicillin Inactive 12/06/2016 Codeine Inactive Medications Medication Date Status Form Strength Qnty SIG Indications Ordering Provider Humidifier 06/11/ Active Misc 2Gallon Pls provide J45.20 Anila 2016 pt with vinnie De La Cruz MD to be used at night Spiriva 06/11/ Active Aerosol 2.5mcg/Act 4unit 1 puff Anila Respimat 2016 s every day MD Jono Symbicort 12/26/ Active Aerosol 80-4.5mcg/ 20.7g 2 puff J45.909 Anila 2016 Act m twice a day MD Jono Levothyroxine / Active Tablets 75mcg 1 by mouth Unknown Sodium 0000 every day Inhaler / Active Unknown 0000 Ibuprofen 200 00/ Active Tablets 200mg 1 twice a Unknown 0000 day as needed Neurontin 06/19/ Hx Capsules 300mg 30cap 1 by mouth G57.21 Haim 2016 - s every night Mis, 12/22/ after M.D. 2018 dinner Osphena 12/07/ Hx Tablets 60mg 90tab 1 po daily N95.1 Croy ePters 2016 - with food Vanesa, 12/22/ M.DKeith 2017 Nicotine Step 2 11/07/ Hx Patches 14mg/24HR 1Box once a day Anila 2016 - 24HR as needed Jono 10/26/ 2016 Nicotine 10/05/ Hx Patches 21mg/24HR 30uni 1 patch Anila 2016 - 24HR ts over skin Jono 10/21/ every day 2016 Cephalexin 08/24/ Hx Tablets 500mg 14tab 1 by mouth H00.011 Cory Peters 2016 - s twice a day Vanesa 10/26/ M.DKeith 2017 Nicotine 04/16/ Hx Patches 14mg/24HR 30uni 1 patch on Anila 2016 - 24HR ts skin every Jono, day 2016 Tudorza 03/13/ Hx Aerosol 400mcg/Act 2unit 1 puff puff Anila Pressair 2016 - s twice a day Jono, 12/22/ 2018 Gabapentin 02/16/ Hx Capsules 300mg 1 by mouth Unknown 2016 - 2 times a 2015 Spiriva 12/26/ Hx Aerosol 2.5mcg/Act 4gm 2 puffs J45.909 Anila Respimat 2016 - every day Jono, 03/12/ MD 2016 Nicotine 12/26/ Hx Patches 14mg/24HR 30uni 1 patch on F17.210 Anila 2016 - 24HR ts skin every Jono, day 2015 Nicotine 12/26/ Hx Lozenges 4mg 60uni 1 by mouth F17.210 Anila Polacrilex 2016 - ts every 4 Jono, 03/19/ hours as 2016 needed Spiriva 10/26/ Hx Capsules 18mcg 2caps 1 unit J45.909 Anila Handihaler 2016 - inhalation Jono, 03/12/ daily 2016 Prilosec 10/25/ Hx Capsules 20mg 1 by mouth Unknown 2015 - DR every day 2015 Vitamin B12 10/25/ Hx Tablets 1ml injection Unknown 2015 - once a 10/26/ 2017 Symbicort 10/25/ Hx Aerosol 160-4.5mcg 2 puff Unknown 2015 - /Act inhaled 12/26/ twice a day 2016 Osephena 10/25/ Hx 5mg every day Unknown 2015 - 2016 Zyban 10/25/ Hx Tablets ER 150mg one tablet Unknown 2016 - 12HR as directed 2015 Oxycodone-Aceta 07/25/ Hx Tablets 5-325mg 60tab 1-2 by M22.41 Arun minpooja 2015 - s mouth every Machelle, 10/25/ 6 hours as M.DKeith 2016 needed pain Sertraline HCL // Hx Tablets 25mg 1 by mouth Unknown 0000 - every day 2015 Prednisone / Hx Tablets 10mg 30mg daily Unknown 0000 - for 1 week, 04/06/ 20mg daily 2016 for 1 week, 10 mg daily for 1 week Levothyroxine / Hx Tablets 175mcg 1 by mouth Unknown Sodium 0000 - every day 2016 Ra Nicotine / Hx Patches 14mg/24HR 21uni apply 1 Cory E. 0000 - 24HR ts patch once Vanesa, M.DKeith 2017 Nicotine Patch / Hx Unknown 0000 - 2016 Immunizations CPT Code Status Date Vaccine Lot # [id number] Given 10/27/2015 Fluvirin Im 3Yrs And Older Vital Signs Date Vital Result Comment 09/15/2018 2:49pm Height 63 inches 5'3" Weight 171.00 lb Heart Rate 60 /min BP Systolic Sitting 110 mmHg Lue regular cuff BP Diastolic Sitting 70 mmHg Lue regular cuff Respiratory Rate 12 /min O2 % BldC Oximetry 94 % BMI (Body Mass Index) 30.3 kg/m2 12/23/2017 9:07am Height 63 inches 5'3" Weight 175.25 lb Heart Rate 62 /min BP Systolic Sitting 110 mmHg Lue regular cuff BP Diastolic Sitting 74 mmHg Lue regular cuff Respiratory Rate 14 /min O2 % BldC Oximetry 90 % BMI (Body Mass Index) 31.0 kg/m2 06/19/2017 8:16am Height 63 inches 5'3" Weight 176.00 lb BP Systolic 118 mmHg BP Diastolic 74 mmHg Respiratory Rate 18 /min Pain Level 7 BMI (Body Mass Index) 31.2 kg/m2 06/11/2017 3:02pm Height 63 inches 5'3" Weight 176.00 lb Heart Rate 72 /min BP Systolic Sitting 120 mmHg BP Diastolic Sitting 70 mmHg Respiratory Rate 14 /min O2 % BldC Oximetry 98 % BMI (Body Mass Index) 31.2 kg/m2 12/24/2016 8:22am Height 63 inches 5'3" Weight 165.00 lb Heart Rate 68 /min BP Systolic 111 mmHg BP Diastolic 70 mmHg Body Temperature 97.2 F Pain Level 8 BMI (Body Mass Index) 29.2 kg/m2 12/07/2016 8:53am Weight 171.00 lb Heart Rate 68 /min BP Systolic Sitting 126 mmHg BP Diastolic Sitting 82 mmHg Respiratory Rate 15 /min Body Temperature 98.0 F O2 % BldC Oximetry 98 % 12/06/2016 8:41am Height 61.5 inches 5'1.50" Weight 171.00 lb Heart Rate 63 /min BP Systolic 105 mmHg BP Diastolic 72 mmHg Body Temperature 96.0 F BMI (Body Mass Index) 31.8 kg/m2 11/15/2016 9:15am Height 63.5 inches 5'3.50" Weight 171.00 lb BP Systolic 99 mmHg BP Diastolic 82 mmHg Respiratory Rate 19 /min Body Temperature 97.7 F Pain Level 8 BMI (Body Mass Index) 29.8 kg/m2 11/07/2016 9:59am Weight 171.38 lb Heart Rate 76 /min BP Systolic 110 mmHg BP Diastolic 70 mmHg Body Temperature 97.6 F O2 % BldC Oximetry 96 % 08/24/2016 10:31am Weight 164.00 lb Heart Rate 68 /min BP Systolic Sitting 122 mmHg BP Diastolic Sitting 70 mmHg Respiratory Rate 15 /min Body Temperature 97.6 F O2 % BldC Oximetry 98 % 06/06/2016 11:42am Height 63 inches 5'3" Weight 161.00 lb Heart Rate 71 /min BP Systolic 130 mmHg BP Diastolic 80 mmHg Body Temperature 97.2 F O2 % BldC Oximetry 98 % BMI (Body Mass Index) 28.5 kg/m2 03/20/2016 1:00pm Height 63 inches 5'3" Weight 157.00 lb Heart Rate 67 /min BP Systolic 110 mmHg BP Diastolic 68 mmHg Respiratory Rate 14 /min O2 % BldC Oximetry 97 % BMI (Body Mass Index) 27.8 kg/m2 02/20/2016 8:08am Height 63 inches 5'3" Weight 157.00 lb Heart Rate 60 /min BP Systolic 126 mmHg BP Diastolic 72 mmHg Respiratory Rate 14 /min O2 % BldC Oximetry 97 % BMI (Body Mass Index) 27.8 kg/m2 12/27/2015 1:29pm Height 63 inches 5'3" Weight 157.00 lb Heart Rate 84 /min BP Systolic 128 mmHg BP Diastolic 78 mmHg Respiratory Rate 14 /min O2 % BldC Oximetry 98 % BMI (Body Mass Index) 27.8 kg/m2 10/27/2015 10:55am Height 63 inches 5'3" Weight 157.00 lb Heart Rate 72 /min BP Systolic Sitting 128 mmHg BP Diastolic Sitting 66 mmHg Respiratory Rate 18 /min O2 % BldC Oximetry 97 % BMI (Body Mass Index) 27.8 kg/m2 08/15/2015 11:42am Height 63 inches 5'3" Weight 162.00 lb Pain Level 7 BMI (Body Mass Index) 28.7 kg/m2 07/25/2015 3:58pm Height 63 inches 5'3" Weight 162.00 lb Heart Rate 57 /min BP Systolic 141 mmHg BP Diastolic 92 mmHg BMI (Body Mass Index) 28.7 kg/m2 Results Test Date Facility Test Result H/L Range Note Basic Metabolic 11/23/2016 [facility] Sodium 138 mmol/L N 133- [address] [place] [address] [phone] Potassium 3.9 mmol/L N 3.5-5.0 Chloride 104 mmol/L N 101-111 Co2 Carbon Dioxide 28 mmol/L N 22-32 Anion Gap 6 mmol/L N 2-11 Glucose 81 mg/dL N 70-100 Blood Urea Nitrogen 13 mg/dL N 6-24 Creatinine 0.72 mg/dL N 0.51-0.95 BUN/Creatinine Ratio 18.1 N 8-20 Calcium 9.5 mg/dL N 8.6-10.3 Egfr Non- 84.4 N >60 Egfr 108.6 N >60 1 Laboratory 11/23/2016 [facility] Hepatitis C Nonreactive N Nonreactive [address] [facility] ([place], [place]) [place] [address] [phone] Lipid Profile 11/23/2016 [facility] Triglycerides 100 mg/dL N 3 (Trig/Chol/HD [address] [place] [address] [phone] Cholesterol 202 mg/dL N 4 HDL Cholesterol 52.4 mg/dL N 5 LDL Cholesterol 130 mg/dL N 6 Laboratory test 11/23/2016 [facility] TSH (Thyroid 2.72 mcIU/mL N 0.34-5.[address] [facility] ([place], [place]) Stim [place]) [place] [address] [phone] Vitamin B12 And 11/23/2016 [facility] Vitamin B12 431 pg/mL N 180-914 8 Folate Serum [address] [place] [address] [phone] Folic Acid (Folate) > 20.00 ng/mL N >3.99 9 CBC Auto Diff 11/23/2016 [facility] White Blood 10.8 10^3/uL N 3.5-10.[address] [place] [address] [phone] Red Blood Count 4.69 10^6/uL N 4.0-5.4 Hemoglobin 13.8 g/dL N 12.0-16.0 Hematocrit 42 % N 35-47 Mean Corpuscular Volume 90 fL N 80-97 Mean Corpuscular Hemoglobin 29 pg N 27-31 Mean Corpuscular HGB Conc 33 g/dL N 31-36 Red Cell Distribution Width 13 % N 10.5-15 Platelet Count 213 10^3/uL N 150-450 Mean Platelet Volume 10 um3 N 7.4-10.4 Abs Neutrophils 6.4 10^3/uL N 1.5-7.7 Abs Lymphocytes 3.2 10^3/uL N 1.0-4.8 Abs Monocytes 0.9 10^3/uL High 0-0.8 Abs Eosinophils 0.4 10^3/uL N 0-0.6 Abs Basophils 0.1 10^3/uL N 0-0.2 Abs Nucleated RBC 0.01 10^3/uL N Granulocyte % 58.7 % N 38-83 Lymphocyte % 29.2 % N 25-47 Monocyte % 7.9 % N 1-9 Eosinophil % 3.5 % N 0-6 Basophil % 0.7 % N 0-2 Nucleated Red Blood Cells % 0.1 N 1 Because ethnic data is not always readily available, this report includes an eGFR for both -Americans and non- Americans. The National Kidney Disease Education Program (NKDEP) does not endorse the use of the MDRD equation for patients that are not between the ages of 18 and 70, are , have extremes of body size, muscle mass, or nutritional status, or are non- or non-. According to the National Kidney Foundation, irrespective of diagnosis, the stage of the disease is based on the level of kidney function: Stage Description GFR(mL/min/1.73 m(2)) 1 Kidney damage with normal or decreased GFR 90 2 Kidney damage with mild decrease in GFR 60-89 3 Moderate decrease in GFR 30-59 4 Severe decrease in GFR 15-29 5 Kidney failure <15 (or dialysis) 2 FASTING 3 Desirable <150 Borderline high 150-199 High 200-499 Very High >500 4 Desirable <200 Borderline high 200-239 High >239 5 Low <40 Desirable: 40-60 High: >60 6 Desirable: <100 mg/dL Near Optimal: 100-129 mg/dL Borderline High: 130-159 mg/dL High: 160-189 mg/dL Very High: >189 mg/dL 7 FASTING 8 Normal Range 180 to 914 Indeterminate Range 145 to 180 Deficient Range <145 9 FASTING Procedures Date Code Description Status 03/08/2016 89666 Plethysmography Determination Lung Volumes & Per Airway Completed Resist 03/08/2016 44797 Pulmonary Function><Bronchodil Completed 02/02/2016 04416 Polysomnography Sleep Staging 4+ Parameters W/Cpap Completed 02/24/2015 19141279 Colonoscopy Completed 09/29/2013 80308 Treadmill Interp/Report Only Completed 09/29/2013 46987 Stress Test Supervsn W/Out I/R Completed Encounters Type Date Location Provider Dx Diagnosis Office Visit 12/23/2017 Pul[facility]ology And Aydee Zaidi, G47.33 Obstructive sleep 9:00a [facility] apnea (adult) [employer] Grazier (pediatric) J45.20 Mild intermittent asthma, uncomplicated Z12.2 Encntr screen for malignant neoplasm of respiratory organs Office Visit 06/19/2017 Orthopedic Haim G57.21 Lesion of femoral 8:30a Services Of [facility] Abebe nerve, right lower C.M.A. limb Office Visit 06/11/2017 Pulmonology And Anila J45.20 Mild intermittent 3:30p Sleep [facility] MD Jono asthma, [employer] uncomplicated G47.33 Obstructive sleep apnea (adult) (pediatric) Office Visit 04/21/2017 6:44a [facility] Jorge Coppola K57.32 Dvtrcli of int Assoc,ana VALENCIA w/o perforation Hospitalists or abscess w/o bleeding J45.20 Mild intermittent asthma, uncomplicated E03.9 Hypothyroidism, unspecified Office Visit 04/20/2017 6:43a [facility] Jorge Coppola K57.32 Dvtrcli of int Assoc,ana VALENCIA w/o perforation Hospitalists or abscess w/o bleeding K56.69 Other intestinal obstruction E03.9 Hypothyroidism, unspecified J45.20 Mild intermittent asthma, uncomplicated Office Visit 04/19/2017 6:43a [facility] Luis A Coppola, K57.32 Dvtrcli of lg int Assocana MD w/o perforation Hospitalists or abscess w/o bleeding K56.69 Other intestinal obstruction J45.20 Mild intermittent asthma, uncomplicated Office Visit 04/18/2017 [facility] Simon Powell K57.32 Dvtrcli of lg 6:42a Assoc,ana OSBORNE M.D. int w/o Hospitalists perforation or abscess w/o bleeding J45.20 Mild intermittent asthma, uncomplicated E03.9 Hypothyroidism, unspecified Office Visit 12/24/2016 Orthopedic Malissa S62.657D Nondisp fx of med 9:30a Services Of [facility] Call phalanx of l lit C.M.A. fngr, 7thD Office Visit 12/07/2016 [facility] Yao Peters N95.1 Menopausal and 9:00a Mehran Alexis M.D. female [facility] climacteric states Office Visit 12/06/2016 Orthopedic Malissa S62.657A Nondisp fx of 8:30a Services Of [facility] Call medial phalanx of C.M.A. left little finger, init Office Visit 11/15/2016 Orthopedic Maria Del Rosario Boo, S63.617A Unspecified 9:45a Services Of RPA-C sprain of left C.M.A. little finger, initial encounter Office Visit 11/07/2016 [facility] Yao Peters M79.645 Pain in left 10:00a Mehran Alexis M.D. finger(s) [place] Office Visit 08/24/2016 [facility] Yao Peters H00.011 Hordeolum 10:20a Mehran Alexis M.D. externum right [place] upper eyelid D51.9 Vitamin B12 deficiency anemia, unspecified Z13.220 Encounter for screening for lipoid disorders Z13.1 Encounter for screening for diabetes mellitus Z11.59 Encounter for screening for other viral diseases E03.9 Hypothyroidism, unspecified Office Visit 06/06/2016 [facility] Yao Peters M54.2 Cervicalgia 11:00a Mehran Alexis M.D. [place] Office Visit 03/20/2016 [facility] Anila J45.909 Unspecified asthma , 1:30p [facility] uncomplicated [facility] G47.33 Obstructive sleep apnea (adult) (pediatric) E66.9 Obesity, unspecified Office Visit 02/20/2016 Pul[facility]ology And Radha G47.33 Obstructive sleep 8:00a [facility] Hopkins, RN, apnea (adult) [employer] (pediatric) E66.9 Obesity, unspecified J45.909 Unspecified asthma, uncomplicated Z87.891 Personal history of nicotine dependence Office Visit 12/27/2015 [facility] Anila J45.909 Unspecified asthma , 1:15p [facility] uncomplicated [employer] G47.9 Sleep disorder, unspecified E66.09 Other obesity due to excess calories F17.210 Nicotine dependence, cigarettes, uncomplicated Office Visit 10/27/2015 [facility] Anila J45.909 Unspecified asthma , 11:00a [facility] uncomplicated [facility] G47.9 Sleep disorder, unspecified E66.09 Other obesity due to excess calories J41.0 Simple chronic bronchitis Office Visit 08/15/2015 11:15a Orthopedic Arun Carty, M75.121 Complete Services Of [facility] rotatr-cuff C.M.A. tear/ruptr of r shoulder, not trauma M17.11 Unilateral primary osteoarthritis, right knee M22.41 Chondromalacia patellae, right knee Office Visit 07/25/2015 3:00p Orthopedic Arun Carty, M22.41 Chondromalacia Services [facility] patellae, right knee C.M.A. M17.11 Unilateral primary osteoarthritis, right knee Office Visit 09/29/2013 4:21p [facility] Allyn Key, 786.05 Shortness Of Assoc,ana Baker Breath Hospitalists 786.50 Pain Chest Unspec 492.8 Emphysema Other 300.00 Anxiety State Unspec Office Visit 09/28/2013 [facility] Simon Powell 786.05 Shortness Of 4:19p Assoc,pc Olivia OSBORNE Breath Hospitalists 786.50 Pain Chest Unspec 492.8 Emphysema Other 300.00 Anxiety State Unspec Office Visit 05/11/2012 7:36p [facility] Aydee Zaidi, 338.19 Other Acute Assoc,pc N.P. Pain Hospitalists 244.9 Hypothyroidism Other Unspec 493.10 Asthma Intrinsic Unspecified Office Visit 05/09/2012 7:35p [facility] Thai, 338.19 Other Acute Assoc,pc N.P. Pain Hospitalists 244.9 Hypothyroidism Other Unspec 493.10 Asthma Intrinsic Unspecified Office Visit 05/17/2009 1:15p Neurosurgery Services Yayo Cadena, 724.2 Lumbago Of [facility] Olivia 729.5 Pain In Limb Plan of Treatment Future Appointment(s):03/09/2019 9:00 am - Anila De La Cruz MD at [facility]ology [facility]09/15/2018 - Anila De La Cruz MDJ45.20 Mild intermittent asthma, uncomplicatedFollow up:6 months, PFTs dzjyvH79.33 Obstructive sleep apnea (adult) (pediatric)Z68.30 Body mass index (BMI) 30.0- 30.9, adult
[2018-10-12 18:34] VITALS: BP 118/74
--- NOTE | 2018-10-12 18:37 | UC ---
Ear Complaint HPI - HPI Summary HPI Summary: Patient is a 57year old female, who present today to the urgent care with right ear pain for past 2 weeks. Pain got worse over the past 2 days and also feels congested in the left ear. when she sneezed couple of days ago, she noticed a small clot but no more bleeding. She does report decreased hearing denies any fevers or chills. no URI symptoms or sick contacts. No cough, chest pain or shortness of breath . No diaphoresis. Denies any abdominal pain , nausea or vomiting , diarrhea or constipation. - History of Current Complaint Stated Complaint: EAR PAIN Time Seen by Provider: 10/12/18 18:27 Hx Obtained From: Patient ?: No - s/p hysterectomy - Allergies/Home Medications Allergies/Adverse Reactions: Allergies Allergy/AdvReac Type Severity Reaction Status Date / Time aspirin Allergy Vomiting Verified 10/12/18 18:34 codeine Allergy Hives Verified 10/12/18 18:34 Penicillins Allergy Hives Verified 10/12/18 18:34 PMH/Surg Hx/FS Hx/Imm Hx - Additional Past Medical History Additional PMH: hypothyroidism Asthma Peptic ulcer disease Sleep apnea Previously Healthy: Yes Other History Of: Negative For: Anticoagulant Therapy - Surgical History Surgical History: Yes Surgery Procedure, Year, and Place: C SECTIONS 82, 83, 85, 1989-oophorectomy, 1994 [place], 1997 (right) shouler rotator cuff, 1999 (right) knee arthroscopy, 2000 cholecystectomy, 10/23 [facility] [place]left[place] shoulder rotator cuff, 06/26 [facility] [place] gastrocsopy w/CLOtest & biopsy, 02/26 [facility] [place] (right[place] carpal tunnel, 04/28 [facility] [place]left ) carpal tunnel, 05/30 [facility] [place] gastroscopy w/CLOtest & gastric, antral biopsy, [facility] [place] gastroscopy w/duodenal & gastric. biopsy, 09/28 [facility] [place] exp lap & lysis of adhesions, [CONT.'] 10/29 [facility] [place] partial small obstruction, 03/31 [facility] [place] carpal tunnel, 03/01 [facility] [place] colposcopy w/biopsy of vaginal cuff & genital wart ablation. Rt FOOT - REPAIRED 2ND TOE - W/ SCREW. 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 Most Recent Pneumonia Vaccination: >5yrs Review of Systems All Other Systems Reviewed And Are Negative: Yes Constitutional: Positive: Negative Skin: Positive: Negative Eyes: Positive: Negative ENT: Positive: Ear Ache - right ear, Other - congestion of the left ear Respiratory: Positive: Negative Cardiovascular: Positive: Negative Gastrointestinal: Positive: Negative Genitourinary: Positive: Negative Motor: Positive: Negative Neurovascular: Positive: Negative Musculoskeletal: Positive: Negative Neurological: Positive: Negative Psychological: Positive: Negative Is Patient Immunocompromised?: No Physical Exam - Summary Physical Exam Summary: Physical Exam: Const: Appears well. No signs of apparent distress present. Alert and oriented x 3. Musculo: Walks with a normal gait. Head/Face: Atraumatic, normocephalic on inspection. Eyes: EOMI and PERRLA in both eyes. Conjunctivae clear. No discharge noted ENT: right tympanic membran- hazy appearing with possible pus behind the tympanic membrane., left TM appears normal. External auditory canal appears normal bilaterally. there is some tenderness and the mastoid along with some swelling and tenderness in submandibular area. tender submandibular lymphadenopathy. Respiratory: Respirations are unlabored. Lungs clear to auscultation bilaterally, no wheezing , rhonchi or rales noted . CVS: Regular rate and Rhythm, S1S2 normal , no murmurs identified. Extremities: Peripheral circulation is grossly normal. Pulses 2+ Abdomen : Soft non tender , nondistended , Bowel sounds present . No guarding , rebound tenderness or rigidity noted. Skin: No lesions or rash located on the upper extremities or on the lower extremities. Neuro: Cranial nerves II to XII intact, motor and sensory intact. DTR Intact bilaterally. Mood is normal. Affect is normal. Triage Information Reviewed: Yes Vital Signs Reviewed: Yes Ear Complaint Course/Dx - Course Course Of Treatment: During the visit today, we discussed the findings and further planto treat it as otitis media with effusion.first dose was given in the clinic today. I will prescribe the rest of the medication to the pharmacy . she can take Claritin-D [id number] I emphasized upon the importance of ENT follow-up within 2 days. Patient expressed understanding . - Differential Dx/Diagnosis Provider Diagnosis: Acute otitis media with effusion of right ear Discharge - Sign-Out/Discharge Documenting (check all that apply): Patient Departure All imaging exams completed and their final reports reviewed: No Studies - Discharge Plan Condition: Stable Disposition: HOME Prescriptions: DOXYcycline CAP(*) [DOXYcycline 100MG CAP(*)] 100 mg PO BID 10 Days #19 cap Patient Education Materials: Ear Infection (ED) Referrals: Heather Pichardo MD [Primary Care Provider] - Nicola Pal MD [Medical Doctor] - 2 Days Additional Instructions: Please start taking the medication as prescribed to the pharmacy . Ibuprofen for pain control. Follow up with ENT within 2 days Return to Urgent care / ER if symptoms get worse. - Billing Disposition and Condition Condition: STABLE Disposition: Home
[2018-10-12] MEDS ORDERED: DOXYcycline CAP(*) 100 MG PO ONE (18:50)
== END 2018-10-12 19:03 | disposition home or self-care (01) ==
LOC: UCEAST 18:25
DX: H65.191 Other acute nonsuppurative otitis media, right ear (principal); F17.210 Nicotine dependence, cigarettes, uncomplicated; J45.909 Unspecified asthma, uncomplicated; Z88.8 Allergy status to other drugs, medicaments and biological substances; Z88.5 Allergy status to narcotic agent; Z88.0 Allergy status to penicillin
CPT/HCPCS: 99212; A9270-GY; G0463

== ENCOUNTER 2018-12-27 21:05 | Emergency (ER) | payer OTHER ==
[2018-12-27 21:26] VITALS: BP 128/93
[2018-12-27] MEDS ORDERED: Ketorolac INJ* 30 MG/ML 1 ML VIAL IV PUSH ONE (21:43)
--- NOTE | 2018-12-27 21:43 | UC ---
Abdominal Pain Female HPI - HPI Summary HPI Summary: PATIENT HAS FELT CONSTIPATED FOR A FEW DAYS. TOOK MAG CITRATE YESTERDAY MORNING AND HAD A BOWEL MOVEMENT. STILL FEELING UNCOMFORTABLE SO TOOK DULCOLAX SUPPOSITORY. HAS HAD WORSENING LOWER ABDOMINAL PAIN. DENIES ANY FEVER. NO VOMITING. HAS A HISTORY OF DIVERTICULITIS BUT STATES THIS DOES NOT FEEL THE SAME. NO URINARY SYMPTOMS. REPORTS A "BOWEL OBSTRUCTION "ABOUT 10 YEARS AGO. - History of Current Complaint Chief Complaint: UCAbdominalPain Stated Complaint: ABDOMINAL PAIN Time Seen by Provider: 12/27/18 21:24 Hx Obtained From: Patient Onset/Duration: Gradual Onset, Lasting Days, Still Present Timing: Constant Severity Initially: Mild Severity Currently: Moderate Pain Intensity: 10 Pain Scale Used: 0-10 Numeric Location: Suprapubic Radiates: No Character: Sharp Aggravating Factor(s): Nothing Alleviating Factor(s): Nothing Associated Signs and Symptoms: Positive: Constipation, Decreased Appetite. Negative: Fever, Blood in Stool, Nausea, Vomiting Allergies/Adverse Reactions: Allergies Allergy/AdvReac Type Severity Reaction Status Date / Time aspirin Allergy Vomiting Verified 12/27/18 21:17 codeine Allergy Hives Verified 12/27/18 21:17 Penicillins Allergy Hives Verified 12/27/18 21:17 Home Medications: Home Medications Bisacodyl [Dulcolax] 1 supp RI ONCE PRN 12/27/18 [History Confirmed 12/27/18] Magnesium Sulfate 70 mg PO ONCE PRN 12/27/18 [History Confirmed 12/27/18] PMH/Surg Hx/FS Hx/Imm Hx - Additional Past Medical History Additional PMH: SLEEP APNEA GI/ History: Diverticulitis Other GI/ History: BOWEL OBSTRUCTION ~2008 Other History Of: Negative For: Anticoagulant Therapy - Surgical History Surgical History: Yes Surgery Procedure, Year, and Place: C SECTIONS 82, 83, 85, 1989-oophorectomy, 1994 [place], 1997 (right) shouler rotator cuff, 1999 (right) knee arthroscopy, 2000 cholecystectomy, 10/23 [facility] [place]left) shoulder rotator cuff, 06/26 [facility] [place]. gastrocsopy w/CLOtest & biopsy, 02/26 [facility] [place] (right) carpal tunnel, 04/28 [facility] [place] (left ) carpal tunnel, 05/30 [facility] [place] gastroscopy w/CLOtest & gastric, antral biopsy, [facility] [place] gastroscopy w/duodenal & gastric , endoscopy in Aug 09. biopsy, 09/28 [facility] [place] exp lap & lysis of adhesions, [CONT.'] 10/29 [facility] [place] partial small obstruction, 03/31 [facility] [place] (left) carpal tunnel, 03/01 [facility] [place] colposcopy w/biopsy of vaginal cuff & genital wart ablation. Rt FOOT - REPAIRED 2ND TOE - W/ SCREW. 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 appendectomy - Family History Known Family History: Positive: None, Cardiac Disease, Diabetes, Other - Negative asthma - Social History Alcohol Use: Rare Substance Use Type: None Smoking Status (MU): Former Smoker Type: Cigarettes Amount Used/How Often: 1 pk/day Length of Time of Smoking/Using Tobacco: 30 years Have You Smoked in the Last Year: Yes When Did the Patient Quit Smoking/Using Tobacco: 6 months ago Household Exposure Type: Cigarettes - Immunization History Most Recent Influenza Vaccination: Fall 2012 Most Recent Tetanus Shot: <10 yrs. Most Recent Pneumonia Vaccination: >5yrs Review of Systems All Other Systems Reviewed And Are Negative: Yes Constitutional: Positive: Negative Respiratory: Positive: Negative Cardiovascular: Positive: Negative Gastrointestinal: Positive: Abdominal Pain Genitourinary: Positive: Negative Physical Exam Triage Information Reviewed: Yes Appearance: Well-Nourished, Pain Distress - MOD/SEVERE Vital Signs: Initial Vital Signs Temp 99 F 12/27/18 21:08 Pulse 83 12/27/18 21:08 Resp 18 12/27/18 21:08 BP 128/93 12/27/18 21:08 Pulse Ox 96 12/27/18 21:08 Vital Signs Reviewed: Yes Eyes: Positive: Conjunctiva Clear ENT: Positive: Hearing grossly normal Respiratory Exam: Normal Cardiovascular Exam: Normal Abdomen Description: Positive: Soft, Other: - TTP LOWER ABDOMEN, MIDLINE.. Negative: CVA Tenderness (R), CVA Tenderness (L), Distended, Guarding Bowel Sounds: Positive: Present Musculoskeletal: Positive: No Edema Neurological: Positive: Alert Psychological: Positive: Age Appropriate Behavior Skin: Negative: Rashes Abd Pain Female Course/Dx - Course Course Of Treatment: PATIENT WITH A HISTORY OF DIVERTICULITIS AND A BOWEL OBSTRUCTION PRESENTS WITH CONSTIPATION AND ACUTE LOWER ABDOMINAL PAIN. PATIENT IS ROCKING BACK AND FORTH HOLDING HER ABDOMEN. REQUIRES HIGHER LEVEL OF CARE THAN WHAT IS AVAILABLE AT THE URGENT CARE. TO [facility] [place] ER BY AMBULANCE - Differential Dx/Diagnosis Provider Diagnosis: Lower abdominal pain - Physician Notification/Consults Discussed Care of Patient With: Carolee Ren - TO [facility] [place] [facility] BY AMBULANCE Time Discussed With Above Provider: 21:52 Instructed by Provider To: MD Will See In ED Discharge - Sign-Out/Discharge Documenting (check all that apply): Patient Departure All imaging exams completed and their final reports reviewed: No Studies - Discharge Plan Condition: Stable Disposition: TRANS HIGHER LVL OF CARE FAC Referrals: Dori Wilburn NP [Primary Care Provider] - - Billing Disposition and Condition Condition: STABLE Disposition: Trans Higher Lvl of Care Fac
[2018-12-27] MEDS ORDERED: NS 0.9% 1000 ML** 1,000 ML IV SCH (21:45)
[2018-12-27] MEDS ORDERED: NS 0.9% 1000 ML** 1,000 ML IV ONE (21:46)
== END 2018-12-27 22:00 | disposition short-term general hospital (02) ==
LOC: UCEAST 21:05
DX: R10.30 Lower abdominal pain, unspecified (principal); Z87.891 Personal history of nicotine dependence; Z88.5 Allergy status to narcotic agent; Z88.0 Allergy status to penicillin
CPT/HCPCS: 96374; 99213; G0463; J1885

== ENCOUNTER 2018-12-27 22:19 | Observation (INO) | payer OTHER ==
[2018-12-27] MEDS ORDERED: Morphine 4 MG/ML VIAL (1 ml) 4 MG/ML VIAL IV ONE (22:23)
[2018-12-27] MEDS ORDERED: NS 0.9% 1000 ML** 1,000 ML IV ONE (22:23)
[2018-12-27] MEDS ORDERED: Ondansetron INJ* 2 MG/ML VIAL IV ONE (22:23)
--- NOTE | 2018-12-27 22:28 | ED ---
Abdominal Pain/Female - HPI Summary HPI Summary: This patient is a 58 year old female brought in by EMS presenting to [facility] with a chief complaint of abdominal pain. She states the pain is in the suprapubic area. Pt denies N/V/D, as well as known fever. She rates her pain 10/10 in severity. The patient has a Hx of diverticulitis, cholecystectomy, appendectomy , and hysterectomy. - History of Current Complaint Stated Complaint: ABD PAIN PER EMS Time Seen by Provider: 12/27/18 22:21 Hx Obtained From: Patient Severity Initially: Severe Severity Currently: Severe Pain Intensity: 10 Pain Scale Used: 0-10 Numeric Location: Suprapubic Allergies/Adverse Reactions: Allergies Allergy/AdvReac Type Severity Reaction Status Date / Time aspirin Allergy Vomiting Verified 12/27/18 22:44 codeine Allergy Hives Verified 12/27/18 22:44 Penicillins Allergy Hives Verified 12/27/18 22:44 Home Medications: Home Medications Spiriva Inhaler DEVICE* 1 puff INH DAILY 12/27/18 [History Confirmed 12/27/18] PMH/Surg Hx/FS Hx/Imm Hx Endocrine/Hematology History: Reports: Hx Blood Transfusions - Post bleeding, Hx Thyroid Disease, Hx Anemia Denies: Hx Anticoagulant Therapy, Hx Diabetes, Other Endocrine/Hematological Disorders Cardiovascular History: Reports: Hx Hypercholesterolemia, Other Cardiovascular Problems/Disorders - HYPERCHOLESTEROLEMIA Denies: Hx Angina, Hx Coronary Artery Disease, Hx Hypertension, Hx Myocardial Infarction, Hx Pacemaker/ICD, Hx Peripheral Vascular Disease, Hx Valvular Heart Disease Respiratory History: Reports: Hx Asthma, Hx Sleep Apnea - Has Cpap at home Denies: Hx Chronic Obstructive Pulmonary Disease (COPD), Other Respiratory Problems/Disorders GI History: Reports: Hx Gall Bladder Disease - Gall bladder removed, Hx Obstructive Bowel, Hx Pyloric Stenosis, Hx Ulcer, Other GI Disorders - Adhesions , H Pylori, SBO History: Reports: Other Problems/Disorders - 4yrs ago, urethral stenosis Denies: Hx Renal Disease Musculoskeletal History: Reports: 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, Other Musculoskeletal History - s/p bilateral carpal tunnel release Sensory History: Denies: Hx Cataracts, Hx Contacts or Glasses, Hx Glaucoma, Hx Hearing Aid, Other Sensory Impairments Opthamlomology History: Denies: Hx Cataracts, Hx Contacts or Glasses, Hx Glaucoma, Other Sensory Impairments Neurological History: Reports: Other Neuro Impairments/Disorders - PAIN CLINIC PATIENT Denies: Hx Dementia, Hx Seizures Psychiatric History: Reports: Hx Depression Denies: Hx Anxiety, Hx Panic Disorder, Hx Substance Abuse, Other Psychiatric Issues/Disorders - Cancer History Cancer Type, Location and Year: Cervical CA. SHAINA - Surgical History Surgery Procedure, Year, and Place: C SECTIONS 82, 83, 85, 1989-oophorectomy, 1994 [place], 1997 (right) shouler rotator cuff, 1999 (right) knee arthroscopy, 2000 cholecystectomy, 10/23 [facility] [place] (left) shoulder rotator cuff, 06/26 [facility] [place]. gastrocsopy w/CLOtest & biopsy, 02/26 [facility] [place] (right) carpal tunnel, 04/28 [facility] [place] (left ) carpal tunnel, 05/30 [facility] [place] gastroscopy w/CLOtest & gastric, antral biopsy, [facility] [place] gastroscopy w/duodenal & gastric , endoscopy in Aug 09. biopsy, 09/28 [facility] [place] exp lap & lysis of adhesions, [CONT.'] 10/29 [facility] [place] partial small obstruction, 03/31 [facility] [place] (left) carpal tunnel, 03/01 [facility] [place] colposcopy w/biopsy of vaginal cuff & genital wart ablation. Rt FOOT - REPAIRED 2ND TOE - W/ SCREW. 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 appendectomy Hx Anesthesia Reactions: No - Immunization History Date of Influenza Vaccine: 05/07 Infectious Disease History: Denies: Hx Clostridium Difficile, Hx Hepatitis, Hx Human Immunodeficiency Virus (HIV), Hx of Known/Suspected MRSA, Hx Shingles, Hx Tuberculosis, Hx Known/ Suspected VRE, Hx Known/Suspected VRSA, History Other Infectious Disease - Family History Known Family History: Positive: Cardiac Disease, Diabetes, Other - Negative asthma - Social History Alcohol Use: Rare Hx Substance Use: No Substance Use Type: Reports: None Hx Tobacco Use: Yes Smoking Status (MU): Former Smoker Type: Cigarettes Amount Used/How Often: 1 pk/day Length of Time of Smoking/Using Tobacco: 30 years Have You Smoked in the Last Year: Yes Review of Systems Negative: Fever Positive: Abdominal Pain. Negative: Vomiting, Diarrhea, Nausea All Other Systems Reviewed And Are Negative: Yes Physical Exam - Summary Physical Exam Summary: Appearance: well appearing, no pain distress Skin: warm, dry, reflects adequate perfusion Head/face: normal Eyes: EOMI, PERRL ENT: mucous membranes moist Neck: supple, non-tender Respiratory: CTA, breath sounds present. Tachypnic. Cardiovascular: RRR, pulses symmetrical Abdomen: LLQ, suprapubic tenderness, no rebound no guarding. , soft Bowel Sounds: present Musculoskeletal: normal, strength/ROM intact Neuro: normal, sensory motor intact, A&Ox3 Triage Information Reviewed: Yes Vital Signs On Initial Exam: Temp Pulse Resp BP Pulse Ox 98.5 F 76 16 138/78 95 12/27/18 22:30 12/27/18 22:35 12/27/18 22:30 12/27/18 22:35 12/27/18 22:35 Vital Signs Reviewed: Yes Diagnostics - Laboratory Result Diagrams: 12/27/18 22:35 12/27/18 22:35 Lab Statement: Any lab studies that have been ordered have been reviewed, and results considered in the medical decision making process. - CT Abdomen/Pelvis CT Interpretation Completed By: Radiologist Summary of CT Findings: 1. Acute sigmoid diverticulitis and a trace amount of free fluid in the pelvis. No abscess or intraperitoneal free air. 2. Fatty liver. ED Provider has reviewed this report. Re-Evaluation - Re-Evaluation First Eval Re-Evaluation Time: 00:51 Comment: Results and plan discussed with patient. Patient is still in a lot of pain and wants to be admitted. Abdominal Pain Fem Course/Dx - Course Course Of Treatment: Nurses notes reviewed. Patient with 2 prior episodes of sigmoid diverticulitis presents with painful left lower quadrant and suprapubic area. Vitals are stable. No significant abnormalities and laboratories. CT is positive for sigmoid diverticulitis without abscess. Patient was given Cipro , Flagyl given that she is allergic to penicillins. She is still having significant pain and will be admitted to the hospital. Hospitalist team contacted and will admit. - Diagnoses Differential Diagnosis: Positive: Bowel Obstruction, Constipation, Diverticulitis, Irritable Bowel Syndrome, Ovarian Cyst, Urinary Tract Infection Provider Diagnoses: Sigmoid diverticulitis, Lower abdominal pain - Provider Notifications Discussed Care Of Patient With: Imelda Mansfield - Hospitalist Time Discussed With Above Provider: 01:00 Instructed by Provider To: Admit As Inpatient Discharge - Sign-Out/Discharge Documenting (check all that apply): Patient Departure - Admission Patient Received Moderate/Deep Sedation with Procedure: No - Discharge Plan Condition: Fair Disposition: ADMITTED TO [facility] - Billing Disposition and Condition Condition: FAIR Disposition: Admitted to [facility] - Attestation Statements Document Initiated by Jorge: Yes Documenting Scribe: Osorio Cerda Provider For Whom Jorge is Documenting (Include Credential): Joseph Adan MD Scribe Attestation: Osorio Muhammad, scribed for Joseph Adan MD on 12/28/18 at 0235. Scribe Documentation Reviewed: Yes Provider Attestation: The documentation as recorded by the irmaibe, Osorio Cerda accurately reflects the service I personally performed and the decisions made by , Joseph Adan MD Status of Scribe Document: Viewed
[2018-12-27 22:43] LABS: ABS Basophils 0.1 10^3/ul (0-0.2); ABS Eosinophils 0.2 10^3/ul (0-0.6); ABS Lymphocytes 3.3 10^3/ul (1.0-4.8); ABS Monocytes 1.3 10^3/ul (0-0.8); ABS Neutrophils 8.9 10^3/ul (1.5-7.7); Eosinophil % 1.6 %; Hematocrit 39 % (35-47); Hemoglobin 12.8 g/dL (12.0-16.0); Lymphocyte % 24.1 %; Mean Corpuscular HGB Conc 33 g/dL (31-36); Mean Corpuscular Hemoglobin 28 pg (27-31); Mean Corpuscular Volume 83 fL (80-97); Mean Platelet Volume 8.9 fL (7.4-10.4); Platelet Count 277 10^3/uL (150-450); Red Blood Count 4.65 10^6 /uL (3.70-4.87); Red Cell Distribution Width 14 % (10-15); White Blood Count 13.9 10^3/uL (3.5-10.8)
[2018-12-27 22:45] LABS: Urine Appearance Clear; Urine Bilirubin Negative (Negative); Urine Blood Negative (Negative); Urine Color Yellow; Urine Glucose Negative (Negative); Urine Ketones Negative (Negative); Urine Nitrite Negative (Negative); Urine Protein Negative (Negative); Urine Specific Gravity 1.012 (1.010-1.030); Urine Urobilinogen Negative (Negative)
[2018-12-27] MEDS: NS 0.9% 1000 ML** 1,000 ML IV ONE (22:52)
[2018-12-27 23:00] LABS: Albumin 4.4 g/dL (3.2-5.2); Albumin/Globulin Ratio 1.4 (1-3); C Reactive Protein 56.01 mg/L (<8.01); Calcium 9.6 mg/dL (8.6-10.3); EGFR African American 96.7 (>60); EGFR Non-African American 79.9 (>60); Globulin 3.1 g/dL (2-4); Potassium 3.7 mmol/L (3.5-5.0); Total Bilirubin 0.7 mg/dL (0.2-1.0); Total Protein 7.5 g/dL (6.4-8.9)
[2018-12-28] MEDS ORDERED: Ciprofloxacin 400MG IVPREMIX(* 400 MG/200 ML BAG IVPB ONE (00:16)
[2018-12-28] MEDS ORDERED: metroNIDAZOLE IV 500 MG/100ML* 500 MG/100 ML BAG IVPB ONE (00:17)
[2018-12-28] MEDS ORDERED: Morphine 4 MG/ML VIAL (1 ml) 4 MG/ML VIAL IV ONE (00:51)
[2018-12-28] MEDS ORDERED: Acetaminophen TAB* 325 MG PO PRN (01:10)
[2018-12-28] MEDS ORDERED: NS 0.9% 1000 ML** 1,000 ML IV SCH (01:15)
[2018-12-28] MEDS ORDERED: Albuterol HFA INHALER* 8 gm MDI INH PRN (01:22)
[2018-12-28] MEDS: Morphine 10 MG/ML VIAL (1 ml) IV PRN ×3 (02:31→15:05)
[2018-12-28] MEDS: Ondansetron INJ* 2 MG/ML VIAL IV PRN ×3 (02:56→15:06)
--- NOTE | 2018-12-28 03:02 | HP ---
HISTORY AND PHYSICAL: DATE OF ADMISSION: PRIMARY CARE PROVIDER: Dori Wilburn NP CHIEF COMPLAINT: Left lower quadrant pain. OFFICE MACHINE PUNCH OPERATOR: Nav Mendoza, the patient's . CODE STATUS: Full. SOURCE OF INFORMATION: HPI is obtained from interview with the patient who is an excellent historian. HISTORY OF PRESENT ILLNESS: This is a 58-year-old female with a past medical history of sleep apnea on CPAP, hypothyroidism, asthma, history of several abdominal surgeries, and recurrent diverticulitis (in April 2018, August 2018, and now again) who is presenting with 2 days of left lower quadrant pain and mild nausea. The patient reports she was in her usual state of health and then started having intermittent stabbing left lower quadrant pain as well as right-sided pain. She presented to urgent care where given her history, they decided to send her to the emergency room for further evaluation. She denies any nausea, vomiting, diarrhea, or fever, but does report that the pain became more and more intense and she was unable to manage it at home and thus agreed with presentation to the emergency room. In the ER, her vital signs were stable. Labs were done which showed leukocytosis at 13, CMP was normal with the exception of alkaline phosphatase mildly elevated to 113. Lactic acid flat. CT abdomen and pelvis was done which shows acute sigmoid diverticulitis and fatty liver. She received fluids, morphine, ciprofloxacin, and Flagyl, and the hospitalist team was asked to evaluate the patient. PAST MEDICAL HISTORY: Sleep apnea, hypothyroidism, and asthma. PAST SURGICAL HISTORY: Three C-sections, status post appendectomy, status post hysterectomy, status post cholecystectomy, status post lysis of adhesions, bilateral carpal tunnel releases, right knee arthroscopy, and right foot surgery. ALLERGIES: ASPIRIN, CODEINE, and PENICILLINS. FAMILY HISTORY: Mother with diabetes and stroke. Father with heart disease. Sibling with colon cancer. SOCIAL HISTORY: She lives with her . 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 Tobacco: She is a former smoker with a 15-pack year history and quit 6 years ago. Alcohol: Denies. Illicit: Denies. REVIEW OF SYSTEMS: Constitutional: Negative for fevers, chills, or malaise. HEENT: Negative for vision changes, headaches, sore throat. Cardiovascular: Negative for chest pain, palpitations, orthopnea. Respiratory: Negative for shortness of breath, cough, or pleuritic chest pain. GI: Positive for nausea. Negative for vomiting, diarrhea. Positive for abdominal pain. : Negative for dysuria, hematuria. Musculoskeletal: Negative for new myalgias, arthralgias, or weakness. Skin: Negative for rashes or lesions. Neurological : Negative for focal weakness or numbness. Psychiatric: Negative for depression or anxiety. Endocrine: Negative for polyuria or polydipsia. Heme: Negative for easy bruising, bleeding, or lymphadenopathy. Allergy: Negative for frequent infections. PHYSICAL EXAMINATION GENERAL: A pleasant woman in no acute distress, cooperative, A and O x3. VITAL SIGNS: At the time of physical exam, blood pressure 121/72, heart rate 71 , oxygen saturation 95% on room air, afebrile. HEENT: Pupils were equal and reactive. Extraocular muscles intact. Sclerae anicteric. She has moist mucous membranes. No oropharyngeal lesions. NECK: Supple with no supraclavicular or cervical lymphadenopathy. LUNGS: Clear to auscultation bilaterally. CARDIOVASCULAR: Regular rate and rhythm with no murmurs, rubs, or gallops. ABDOMEN: Her belly is soft, nondistended. She has mild to moderate left lower quadrant tenderness with voluntary guarding, but no rebound or rigidity. Normoactive bowel sounds. No hepatosplenomegaly or masses and no costovertebral angle tenderness. MUSCULOSKELETAL: She moves all 4 limbs spontaneously. EXTREMITIES: No edema, 2+ pulses in bilateral DPs. NEUROLOGIC: A and O x3. Cranial nerves II through XII are intact with no focal neurologic deficits. Cooperative with exam. SKIN: Without rashes or lesions. LABS AND STUDIES: CBC with white blood cell count of 13.9, hemoglobin of 12.8 , hematocrit 39, platelets 277. Chemistry: Sodium 135, potassium 3.7, chloride 105, carbon dioxide 24, BUN is 9, creatinine 0.75, glucose 97, lactic acid 0.6. Alk phos 112, AST 17, ALT 21, lipase 24. UA unremarkable. Imaging abdomen and pelvis: Acute sigmoid diverticulitis and trace amount of free fluid in the pelvis, no abscess or intraperitoneal free air, fatty liver. Imaging and labs reviewed by myself. ASSESSMENT AND PLAN: This is a 58-year-old female with past medical history of sleep apnea, hypothyroidism, asthma with history of known recurrent diverticulitis who is presenting with left lower quadrant pain consistent with sigmoid diverticulitis, currently being admitted for pain control and IV antibiotics. 1. Sigmoid diverticulitis: The patient with leukocytosis and issues with pain control. -Cipro/Flagyl continued -Pain control with Toradol and Morphine. -Consultation with Surgery given recurrent diverticulitis and patient follow up outpatient with Dr. Dejuan mederos. 2. Sleep apnea: We will offer the patient CPAP treatment at home setting of 5. 3. Hypothyroidism: We will continue home Synthroid. 4. Asthma: P.r.n. inhalers offered here. 5. DVT: Subcu heparin. 6. FEN: N.p.o. for now. 7. Disposition: Stable for admission to [address] [place] [address] without telemetry. 8. Code status is full. TIME SPENT: Thirty minutes was spent in the planning this admission with over half of that spent directly at the bedside with the patient providing direct the patient care. Plan of care was discussed with the patient. She has no further questions. [id number]/[facility] #: [id number] ANGÉLICA
[2018-12-28] MEDS: Ketorolac INJ* 30 MG/ML 1 ML VIAL IV PUSH PRN ×3 (05:48→18:01)
[2018-12-28] MEDS: Levothyroxine TAB* 75 MCG TAB PO SCH (05:49)
[2018-12-28] MEDS ORDERED: Heparin VIAL(*) 5000 UNITS/ML VIAL (FIVE THOUSAND) SUBCUT SCH (06:00)
--- NOTE | 2018-12-28 09:20 | PN ---
Subjective Date of Service: 12/28/18 Interval History: Pain mid lower abdomen about the same. C/O thirst. Pain control adequate. No nausea or emesis. No new c/o. Objective Active Medications: Acetaminophen (Tylenol Tab*) 650 mg PO Q6H PRN PRN Reason: FEVER/PAIN Albuterol (Ventolin Hfa Inhaler*) 1 puff INH Q4H PRN PRN Reason: SOB/WHEEZING Ciprofloxacin/Dextrose (Cipro 400 Mg Ivpremix(*)) 400 mg in 200 mls @ 200 mls/ hr IVPB Q12H [facility]; Protocol Metronidazole/Sodium Chloride (Flagyl 500 Mg Ivpb*) 500 mg in 100 mls @ 100 mls /hr IVPB Q12H [facility] Potassium Chloride/Dextrose (D5w 1/2 Ns Kcl 20 Meq 1000 Ml*) 1,000 mls @ 125 mls/hr IV PER RATE [facility] Ketorolac Tromethamine (Toradol Inj*) 30 mg IV PUSH Q6H PRN PRN Reason: PAIN Last Admin: 12/28/18 05:48 Dose: 30 mg Levothyroxine Sodium (Synthroid Tab*) 75 mcg PO DAILY@0600 [facility] Last Admin: 12/28/18 05:49 Dose: 75 mcg Morphine Sulfate (Morphine 10 Mg/Ml Vial (1 Ml)) 5 mg IV Q6H PRN PRN Reason: PAIN - BREAKTHROUGH Last Admin: 12/28/18 08:50 Dose: 5 mg Ondansetron HCl (Zofran Inj*) 4 mg IV Q6H PRN PRN Reason: NAUSEA Last Admin: 12/28/18 08:57 Dose: 4 mg Vital Signs - 8 hr 12/28/18 12/28/18 12/28/18 01:12 01:35 01:40 Temperature 98.9 F Pulse Rate 69 76 Respiratory 16 16 Rate Blood Pressure 124/82 124/82 (mmHg) O2 Sat by Pulse 93 94 Oximetry 12/28/18 12/28/18 12/28/18 02:00 02:05 02:15 Temperature 98.9 F Pulse Rate 73 74 76 Respiratory 16 Rate Blood Pressure 129/78 124/82 (mmHg) O2 Sat by Pulse 93 92 94 Oximetry 12/28/18 12/28/18 12/28/18 02:24 02:31 04:08 Temperature 97.9 F Pulse Rate 70 Respiratory 18 18 18 Rate Blood Pressure 101/80 (mmHg) O2 Sat by Pulse 98 Oximetry 12/28/18 12/28/18 12/28/18 07:22 07:31 08:50 Temperature 97.9 F Pulse Rate 55 Respiratory 16 20 18 Rate Blood Pressure 118/78 (mmHg) O2 Sat by Pulse 96 Oximetry Oxygen Devices in Use Now: None Appearance: Alert, partly up in bed. In fair spirits, looks somewhat uncomfortable. Eyes: No Scleral Icterus Respiratory: Symmetrical Chest Expansion and Respiratory Effort, Clear to Auscultation, Clear to Percussion Cardiovascular: NL Sounds; No Murmurs; No JVD, RRR, No Edema, - Abdominal: - - Soft, tender LLQ, some BS, no rebound. Extremities: No Edema, No Clubbing, Cyanosis, - Skin: No Rash or Ulcers, No Nodules or Sclerosis, - Neurological: Alert and Oriented x 3, NL Sensation Result Diagrams: 12/27/18 22:35 12/27/18 22:35 Assess/Plan/Problems-Billing Assessment: - Patient Problems (1) Diverticulitis Current Visit: No Status: Acute Comment: Third episode in past 2 yrs. Continue cipro/flagyl. Discussed with Dr. Luevano who will see pt today. (2) Asthma Current Visit: Yes Status: Acute Code(s): J45.909 - UNSPECIFIED ASTHMA, UNCOMPLICATED SNOMED Code(s): 997518252 Comment: Continue tiotropium. (3) Hypothyroid Current Visit: Yes Status: Acute Code(s): E03.9 - HYPOTHYROIDISM, UNSPECIFIED SNOMED Code(s): 26311713 Comment: TSH wnl 12/28/18. Continue home dose levothyroxine.
[2018-12-28] MEDS ORDERED: SPIRIVA INH SCH (10:00)
[2018-12-28] MEDS ORDERED: Spiriva Inhaler DEVICE* 1 EACH DEVICE INH ONE (10:00)
[2018-12-28] MEDS ORDERED: Tiotropium CAP.INH* CAP.INH/18 MCG (USE ORDER SET !) INH SCH (10:00)
[2018-12-28] MEDS: D5W 1/2 NS KCl 20 Meq 1000 ML* 1,000 ML IV SCH ×2 (10:10→20:55)
[2018-12-28] MEDS: PROCHLORPERAZINE INJ 5 MG/ML 2 ML VIAL IV PRN ×2 (11:48→18:01)
[2018-12-28] MEDS: metroNIDAZOLE IV 500 MG/100ML* 500 MG/100 ML BAG IVPB SCH (11:59)
--- NOTE | 2018-12-28 12:49 | CONS ---
CC: Dori Wilburn NP; Dr. Traylor, GI; [facility] * SURGICAL CONSULTATION REPORT: DATE OF CONSULT: The patient is seen in room 411 on 12/28/18. HISTORY OF PRESENT ILLNESS: I was contacted overnight regarding Ms. Mendoza, a 58- year-old female, who presented with abdominal pain, was diagnosed with acute diverticulitis and admitted with IV antibiotics and n.p.o. status. The patient states that this is her third episode in about a year and a half. She describes this as possibly the worst of the three. The patient states the pain started 2 days ago in left lower quadrant associated with nausea, decreased flatus. No fevers or chills. Pain at times radiates to the back, similar location of the pain as to previous episode. Previous episodes both led to hospitalizations. The patient has had endoscopy which showed diverticular disease. The patient only underwent endoscopy earlier this year for epigastric pain. The patient is a poor historian, describing events that do not compare to the medical record, basically stating she has had three admissions for diverticulitis when I see one other than today and a colonoscopy. PAST MEDICAL HISTORY: Includes: 1. Sleep apnea. 2. Hypothyroidism. 3. Asthma. MEDICATIONS: Reviewed. ALLERGY LIST: Reviewed. SOCIAL HISTORY: The patient lives with her . She is a former smoker, quit 2 years ago. She is not working right now, but just is completing a bachelor's degree. REVIEW OF SYSTEMS: No fevers, no chills. No nausea. Abdominal pain as described. No dysuria. No pneumaturia. No bleeding or vaginal discharge. The patient is status post hysterectomy. PHYSICAL EXAM: She is afebrile. Vital signs are stable. Alert and oriented x3. She is in mild distress. Head, ears, eyes, and throat: Normocephalic, atraumatic. Sclerae anicteric. Mucous membranes are moist. Abdomen: Soft, nondistended. Minimal tenderness in the right lower quadrant on deep palpation. Rectal exam: Not performed. Extremities: Within normal limits. DIAGNOSTIC STUDIES/LAB DATA: Reviewed, show white count of 13.9 with left shift. Chemistry panel within normal limits with an elevated CRP of 56. Urinalysis normal. The patient underwent a CAT scan of the abdomen and pelvis, the images as well as report reviewed. It showed acute sigmoid diverticulitis with trace amount of free fluid in the pelvis, no free air. IMPRESSION: Diverticulitis, uncomplicated. PLAN: Plan is for antibiotics, n.p.o. status with bowel rest and advancing diet slowly starting tomorrow. We will follow her along. She may require surgical intervention during this admission but is unlikely. She will need colonoscopy and follow up in my office as an outpatient for a possible planned sigmoid colectomy laparoscopic to prevent additional episodes since the patient is leaning towards this after our discussion today. [id number]/CPS #: [id number] MTDD
[2018-12-28] MEDS: Ciprofloxacin 400MG IVPREMIX(* 400 MG/200 ML BAG IVPB SCH (13:30)
[2018-12-28] MEDS ORDERED: Enoxaparin(*) 40 MG/0.4 ML SYR SUBCUT SCH (14:00)
[2018-12-29] MEDS: Morphine 10 MG/ML VIAL (1 ml) IV PRN (00:25)
[2018-12-29] MEDS: metroNIDAZOLE IV 500 MG/100ML* 500 MG/100 ML BAG IVPB SCH (00:26)
[2018-12-29] MEDS: Ondansetron INJ* 2 MG/ML VIAL IV PRN (00:31)
[2018-12-29] MEDS: Ciprofloxacin 400MG IVPREMIX(* 400 MG/200 ML BAG IVPB SCH (02:57)
[2018-12-29] MEDS: Levothyroxine TAB* 75 MCG TAB PO SCH (05:27)
[2018-12-29 06:46] LABS: ABS Eosinophils 0.3 10^3/ul (0-0.6); ABS Lymphocytes 1.8 10^3/ul (1.0-4.8); ABS Monocytes 0.8 10^3/ul (0-0.8); ABS Neutrophils 4.1 10^3/ul (1.5-7.7); Eosinophil % 3.8 %; Hematocrit 35 % (35-47); Hemoglobin 11.3 g/dL (12.0-16.0); Lymphocyte % 25.4 %; Mean Corpuscular HGB Conc 33 g/dL (31-36); Mean Corpuscular Hemoglobin 27 pg (27-31); Mean Corpuscular Volume 84 fL (80-97); Mean Platelet Volume 9.1 fL (7.4-10.4); Platelet Count 200 10^3/uL (150-450); Red Blood Count 4.15 10^6 /uL (3.70-4.87); Red Cell Distribution Width 14 % (10-15); White Blood Count 6.9 10^3/uL (3.5-10.8)
[2018-12-29 06:53] LABS: BUN/Creatinine Ratio 7.7 (8-20); Calcium 9.1 mg/dL (8.6-10.3); EGFR African American 114.1 (>60); EGFR Non-African American 94.3 (>60)
[2018-12-29] MEDS: D5W 1/2 NS KCl 20 Meq 1000 ML* 1,000 ML IV SCH (07:41)
[2018-12-29] MEDS: PROCHLORPERAZINE INJ 5 MG/ML 2 ML VIAL IV PRN (07:41)
[2018-12-29] MEDS: Ketorolac INJ* 30 MG/ML 1 ML VIAL IV PUSH PRN (07:41)
[2018-12-29] MEDS ORDERED: Ciprofloxacin TAB* 500 MG PO SCH (11:00)
[2018-12-29] MEDS ORDERED: metroNIDAZOLE TAB* 250 MG PO SCH (11:00)
--- NOTE | 2018-12-29 11:10 | PN ---
Progress Note - Progress Note Date of Service: 12/29/18 Note: Time spent on discharge including exam of patient, discussion with patient, nurse, CM, pharmacy, review of EMR and preparation of discharge documents is 40 minutes.
[2018-12-29 11:41] VITALS: BP 119/72
--- NOTE | 2018-12-29 13:12 | DS ---
CC: Dori Wilburn NP; Dr. Luevano * DISCHARGE SUMMARY: DATE OF ADMISSION: DATE OF DISCHARGE: 12/29/18 HISTORY OF PRESENT ILLNESS: This 58-year-old woman presented with lower abdominal pain for a couple of days. This is similar to her prior episodes of diverticulitis. CT scan showed evidence of sigmoid diverticulitis. She was started on ciprofloxacin and metronidazole. She did well in the hospital. By the final hospital day, she was nearly pain free. On exam, there was minimal of any abdominal tenderness. Bowel sounds were normal. She was tolerating a clear liquid diet. Her white blood count came down to normal at 6.9 on the day of discharge. She had 1 temperature of 100.5, but was otherwise afebrile. She was seen in consultation by Dr. Luevano as this is her third episode of diverticulitis in the past 2 years. He offered her sigmoid colectomy. She is thinking about this, but at the moment I spoke to her, she was leaning against it. She last had a colonoscopy possibly 5 years ago or so and said was due for one next year. I told her to have this moved up to the next month or 2. FINAL DIAGNOSES: 1. Recurrent sigmoid diverticulitis. 2. Asthma. 3. Hypothyroidism. DISCHARGE MEDICATIONS: 1. Metronidazole 500 mg t.i.d. for 8 days. 2. Ciprofloxacin 500 mg b.i.d. for 8 days. 3. Levothyroxine 75 mcg daily. 4. Tiotropium inhaler 1 puff daily. CONDITION ON DISCHARGE: Improved. DISPOSITION ON DISCHARGE: Discharged home. [id number]/[facility] #: [id number] ANGÉLICA
--- NOTE | 2018-12-29 13:35 | PN ---
Progress Note - Progress Note Date of Service: 12/29/18 SOAP: Subjective:denies pain,passed small flatus,no stool;no dysuria;wants to go home [] Objective: Vital Signs Temp 98.1 F 12/29/18 11:41 Pulse 62 12/29/18 11:41 Resp 16 12/29/18 11:41 BP 119/72 12/29/18 11:41 Pulse Ox 98 12/29/18 11:41 Intake & Output 12/28/18 12/29/18 12/29/18 18:59 06:59 18:59 Intake Total 866 220 240 Balance 866 220 240 Intake: IV Fluids 506 ABX - FLAGYL 100 D5W 1/2 NS 20 meq KCL 406 IVPB 100 ABX - FLAGYL 100 Oral 360 120 240 Other: Estimated Void Medium Date of Last Bowel unknown unknown Movement # Bowel Movements 0 0 # Voids 2 2 abd:+bs;soft,nondistended,nontender to deep palpation,no guarding [] Assessment:Hospital day#2 acute diverticulitis,pain free,tolerating clears [] Plan:per Hospitalist will be discharged home today on oral Cipro and Flagyl;I advised low residue diet and asked for Nutrition consult before discharge;pt will call to schedule followup with Dr Luevano after she has a colonoscopy; questions answered;she agrees with plan. []
== END 2018-12-29 13:50 | disposition home or self-care (01) ==
LOC: ED 22:19 → MED 12-28 01:07 → INTOOBSV 12-28 01:07
PROVIDERS: ADMIT Internal Medicine; ATTEND Internal Medicine
DX: K57.92 Diverticulitis of intestine, part unspecified, without perforation or abscess without bleeding (principal); J45.909 Unspecified asthma, uncomplicated; E03.9 Hypothyroidism, unspecified; Z88.0 Allergy status to penicillin; Z88.6 Allergy status to analgesic agent; Z87.891 Personal history of nicotine dependence
CPT/HCPCS: 36415; 74176; 80048; 80053; 81003; 83605; 83690; 84443; 85025; 86140; 94660; 96365; 96367; 96372; 96375; 96376; 99284; A9270-GY; G0378; J0744; J0780; J1644; J1650; J1885; J2270; J2405; J3490

== ENCOUNTER 2019-03-22 17:57 | Inpatient (IN) | payer OTHER ==
--- OUTSIDE RECORDS SUMMARY | 2019-03-22 18:06 | XMS REPORT | Continuity of Care Document ---
:1960 External Reference #:[id number] Author Name Frankie Rowley, OD Address [address] [place] [address] Care Team Providers Name Role Phone Marino VALENCIA, Thadomjackie Care Team Information [employer]aker [phone] Problems Description No Information Available Social History Type Date Description Comments Sex Unknown ETOH Use Rarely consumes alcohol Tobacco Use Start: Unknown End: Unknown Patient is a former smoker Smoking Status Reviewed: 02/23/19 Patient is a former smoker Allergies, Adverse Reactions, Alerts Active Allergies Reaction Severity Comments Date Seasonal 02/23/2019 Codeine hives 02/23/2019 Penicillin 02/23/2019 Inactive Allergies NKDA 02/23/2019 Medications Active Medications SIG Qnty Indications Ordering Provider Date Levothyroxine Sodium Take 1 Tablet By Unknown 75mcg Mouth Once Daily Tablets Spiriva Respimat Unknown 1.25mcg/Act Aerosol Immunizations Description No Information Available Vital Signs Date Vital Result Comment 02/23/2019 4:02pm Intraocular Pressure Right Eye 15 mmHg Intraocular Pressure Left Eye 15 mmHg Results Description No Information Available Procedures Date Code Description Status 02/23/2019 55090 Refraction Completed 02/23/2019 37307 Eye Exam New Comprehensive Completed Medical Devices Description No Information Available Encounters Description No Information Available Assessments Date Code Description Provider 02/23/2019 H25.13 Age-related nuclear cataract, bilateral Frankie Rowley, OD 02/23/2019 H50.05 Alternating esotropia Frankie Rowley, OD 02/23/2019 H04.123 Dry eye syndrome of bilateral lacrimal glands Frankie Rowley, OD 02/23/2019 H52.4 Presbyopia Frankie Rowley, OD Plan of Treatment 02/23/2019 - Frankie Rowley, ODH25.13 Age-related nuclear cataract, bilateralFollow up:yearly full, sooner PRNH50.05 Alternating esotropiaFollow up: yearly full, sooner PRNH04.123 Dry eye syndrome of bilateral lacrimal glandsFollow up:yearly full, sooner PRNH52.4 PresbyopiaFollow up:yearly full, sooner PRN Functional Status Description No Information Available Mental Status Description No Information Available Referrals Description No Information Available
--- NOTE | 2019-03-22 19:17 | ED ---
Abdominal Pain/Female - HPI Summary HPI Summary: This patient is a 58 year old female presenting to [facility] with a chief complaint of LLQ pain since this morning. The patient has had diverticulitis multiple times in the past and most recently had it three months ago. She states this feels like the diverticulitis and she states she is considering surgery. She says she has been hesitant in the past at [facility] due to how the surgeon was evaluating her. She states she had to be admitted every time she has had diverticulitis. She rates her pain 10/10 in severity. - History of Current Complaint Chief Complaint: EDAbdPain Stated Complaint: LOWER ABD PAIN PER PT Time Seen by Provider: 03/22/19 19:10 Hx Obtained From: Patient Onset/Duration: Lasting Hours, Still Present Pain Intensity: 10 Pain Scale Used: 0-10 Numeric Location: Discrete At: LUQ Radiates: No Allergies/Adverse Reactions: Allergies Allergy/AdvReac Type Severity Reaction Status Date / Time aspirin Allergy Vomiting Verified 03/22/19 18:55 codeine Allergy Hives Verified 03/22/19 18:55 Penicillins Allergy Hives Verified 03/22/19 18:55 PMH/Surg Hx/FS Hx/Imm Hx Endocrine/Hematology History: Reports: Hx Blood Transfusions - Post bleeding, Hx Thyroid Disease, Hx Anemia Denies: Hx Anticoagulant Therapy, Hx Diabetes, Other Endocrine/Hematological Disorders Cardiovascular History: Reports: Hx Hypercholesterolemia, Other Cardiovascular Problems/Disorders - HYPERCHOLESTEROLEMIA Denies: Hx Angina, Hx Coronary Artery Disease, Hx Hypertension, Hx Myocardial Infarction, Hx Pacemaker/ICD, Hx Peripheral Vascular Disease, Hx Valvular Heart Disease Respiratory History: Reports: Hx Asthma, Hx Sleep Apnea - Has Cpap at home Denies: Hx Chronic Obstructive Pulmonary Disease (COPD), Other Respiratory Problems/Disorders GI History: Reports: Hx Gall Bladder Disease - Gall bladder removed, Hx Obstructive Bowel, Hx Pyloric Stenosis, Hx Ulcer, Other GI Disorders - Adhesions , H Pylori, SBO History: Reports: Other Problems/Disorders - 4yrs ago, urethral stenosis Denies: Hx Renal Disease Musculoskeletal History: Reports: 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, Other Musculoskeletal History - s/p bilateral carpal tunnel release Sensory History: Reports: Hx Contacts or Glasses Denies: Hx Cataracts, Hx Glaucoma, Hx Hearing Aid, Other Sensory Impairments Opthamlomology History: Reports: Hx Contacts or Glasses Denies: Hx Cataracts, Hx Glaucoma, Other Sensory Impairments Neurological History: Reports: Other Neuro Impairments/Disorders - PAIN CLINIC PATIENT Denies: Hx Dementia, Hx Seizures Psychiatric History: Reports: Hx Depression Denies: Hx Anxiety, Hx Panic Disorder, Hx Substance Abuse, Other Psychiatric Issues/Disorders - Cancer History Cancer Type, Location and Year: Cervical CA. [facility]AIN[facility] - Surgical History Surgery Procedure, Year, and Place: C SECTIONS 82, 83, 85, 1988-oophorectomy, 1994 [place], 1997 (right) shouler rotator cuff, 1999 (right) knee arthroscopy, 2000 cholecystectomy, 10/23 [facility] (left) shoulder rotator cuff, 06/26 [facility]. gastrocsopy w/CLOtest & biopsy, 02/26 [facility] (right) carpal tunnel, 04/28 [facility] (left ) carpal tunnel, 05/30 [facility] gastroscopy w/CLOtest & gastric, antral biopsy, [facility] gastroscopy w/duodenal & gastric , endoscopy in Aug 09. biopsy, 09/28 [facility] exp lap & lysis of adhesions, [CONT.'] 10/29 [facility] partial small obstruction, 03/31 [facility] (left) carpal tunnel, 03/01 [facility] colposcopy w/biopsy of vaginal cuff & genital wart ablation. Rt FOOT - REPAIRED 2ND TOE - W/ SCREW. 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 appendectomy Hx Anesthesia Reactions: No - Immunization History Date of Influenza Vaccine: 05/07 Infectious Disease History: No Infectious Disease History: Denies: Hx Clostridium Difficile, Hx Hepatitis, Hx Human Immunodeficiency Virus (HIV), Hx of Known/Suspected MRSA, Hx Shingles, Hx Tuberculosis, Hx Known/ Suspected VRE, Hx Known/Suspected VRSA, History Other Infectious Disease, Traveled Outside the [place] in Last 30 Days - Family History Known Family History: Positive: None, Cardiac Disease, Diabetes, Other - Negative asthma - Social History Alcohol Use: Rare Hx Substance Use: No Substance Use Type: Reports: None Hx Tobacco Use: Yes Smoking Status (MU): Former Smoker Type: Cigarettes Amount Used/How Often: 1 pk/day Length of Time of Smoking/Using Tobacco: 30 years Have You Smoked in the Last Year: Yes Review of Systems Negative: Fever Positive: Abdominal Pain - LLQ All Other Systems Reviewed And Are Negative: Yes Physical Exam - Summary Physical Exam Summary: Appearance: Well-appearing, Well-nourished, lying in bed comfortably Skin: Warm, dry, no obvious rash Eyes: sclera anicteric, no conjunctival pallor ENT: mucous membranes moist, pharynx appears normal Neck: Supple, nontender Respiratory: Clear to auscultation, no signs of respiratory distress Cardiovascular: Normal S1, S2. No murmurs. Normal distal pulses in tibial and radial bilaterally. Abdomen: Soft, tenderness over the LLQ, normal active bowel sounds present Musculoskeletal: Normal, Strength/ROM Intact Neurological: A&Ox3, awake and alert, mentation is normal, speech is fluent and appropriate Psychiatric: affect is normal, does not appear anxious or depressed Triage Information Reviewed: Yes Vital Signs On Initial Exam: Initial Vitals Temp Pulse Resp BP Pulse Ox 98.0 F 86 16 144/91 99 03/22/19 17:59 03/22/19 17:59 03/22/19 17:59 03/22/19 17:59 03/22/19 17:59 Vital Signs Reviewed: Yes Diagnostics - Vital Signs Vital Signs Temp Pulse Resp BP Pulse Ox 03/22/19 18:53 81 97 03/22/19 18:52 81 129/79 96 03/22/19 17:59 98.0 F 86 16 144/91 99 - Laboratory Result Diagrams: 03/22/19 19:30 03/22/19 19:30 Lab Statement: Any lab studies that have been ordered have been reviewed, and results considered in the medical decision making process. - CT Abd/Pel CT Interpretation Completed By: Radiologist Summary of CT Findings: 1. Colonic diverticulosis with mild sigmoid diverticulitis which is decreased overall since 12/27/2018. 2. There has been prior cholecystectomy and hysterectomy. 3. Fatty infiltration of the liver. 4. Otherwise negative CT abd/pel. ED Provider has reviewed this report. Abdominal Pain Fem Course/Dx - Course Course Of Treatment: This patient is a 58 year old female with a Hx of diverticulitis presenting to [facility] with a chief complaint of LLQ pain since this morning. CT Abd/Pel revealed colonic diverticulosis with mild sigmoid diverticulitis. Dr. Mitchell, Hospitalist, accepted the patient for admission. A plan for admission was discussed with the patient and she was agreeable with this plan. - Diagnoses Provider Diagnoses: Diverticulitis Discharge ED - Sign-Out/Discharge Documenting (check all that apply): Patient Departure - Admission Patient Received Moderate/Deep Sedation with Procedure: No - Discharge Plan Condition: Stable Disposition: ADMITTED TO [facility] - Billing Disposition and Condition Condition: STABLE Disposition: Admitted to [facility] - Attestation Statements Document Initiated by Jorge: Yes Documenting Scribe: Osorio Cerda Provider For Whom Jorge is Documenting (Include Credential): Uri Freire MD Scribe Attestation: Osorio Muhammad, scribed for Uri Freire MD on 03/23/19 at 0544. Scribe Documentation Reviewed: Yes Provider Attestation: The documentation as recorded by the Osorio ruiz accurately reflects the service I personally performed and the decisions made by me, Uri Freire MD Status of Scribe Document: Viewed
[2019-03-22] MEDS ORDERED: NS 0.9% 1000 ML** 2,000 ML IV ONE (19:22)
[2019-03-22] MEDS ORDERED: Morphine 4 MG/ML VIAL (1 ml) 4 MG/ML VIAL IV PRN (19:22)
[2019-03-22] MEDS ORDERED: Morphine 4 MG/ML VIAL (1 ml) 4 MG/ML VIAL IV ONE ×2 (19:22→22:26)
[2019-03-22 19:35] LABS: ABS Basophils 0.1 10^3/ul (0-0.2); ABS Eosinophils 0.2 10^3/ul (0-0.6); ABS Lymphocytes 2.7 10^3/ul (1.0-4.8); ABS Neutrophils 7.7 10^3/ul (1.5-7.7); Eosinophil % 1.8 %; Hematocrit 36 % (35-47); Hemoglobin 11.9 g/dL (12.0-16.0); Lymphocyte % 22.8 %; Mean Corpuscular HGB Conc 33 g/dL (31-36); Mean Corpuscular Hemoglobin 27 pg (27-31); Mean Corpuscular Volume 80 fL (80-97); Mean Platelet Volume 8.6 fL (7.4-10.4); Platelet Count 230 10^3/uL (150-450); Red Cell Distribution Width 15 % (10-15); White Blood Count 11.7 10^3/uL (3.5-10.8)
[2019-03-22] MEDS ORDERED: Ondansetron INJ* 2 MG/ML VIAL IV ONE (19:47)
[2019-03-22 19:54] LABS: Albumin 4.3 g/dL (3.2-5.2); Albumin/Globulin Ratio 1.5 (1-3); BUN/Creatinine Ratio 10.4 (8-20); C Reactive Protein 87.9 mg/L (<8.01); Calcium 9.8 mg/dL (8.6-10.3); EGFR African American 93.8 (>60); EGFR Non-African American 77.5 (>60); Globulin 2.9 g/dL (2-4); Potassium 3.5 mmol/L (3.5-5.0); Total Bilirubin 1.1 mg/dL (0.2-1.0); Total Protein 7.2 g/dL (6.4-8.9)
[2019-03-22 20:41] LABS: Urine Appearance Clear; Urine Bilirubin Negative (Negative); Urine Blood Negative (Negative); Urine Color Straw; Urine Glucose Negative (Negative); Urine Ketones Negative (Negative); Urine Nitrite Negative (Negative); Urine Protein Negative (Negative); Urine Specific Gravity 1.004 (1.010-1.030); Urine Urobilinogen Negative (Negative)
[2019-03-22] MEDS ORDERED: Iohexol 300* (CONTRAST) 10 ML SDV IV ONE (20:56)
[2019-03-22] MEDS ORDERED: Ciprofloxacin 400MG IVPREMIX(* 400 MG/200 ML BAG IVPB ONE (22:24)
[2019-03-22] MEDS ORDERED: metroNIDAZOLE IV 500 MG/100ML* 500 MG/100 ML BAG IVPB ONE (22:25)
[2019-03-22] MEDS ORDERED: Acetaminophen TAB* 325 MG PO PRN (23:33)
[2019-03-22] MEDS ORDERED: Mometasone/Formoter 100/5 MDI INH PRN (23:37)
[2019-03-22] MEDS ORDERED: Ketorolac INJ* 30 MG/ML 1 ML VIAL IV PUSH ONE (23:47)
[2019-03-23] MEDS: Ondansetron INJ* 2 MG/ML VIAL IV PRN ×3 (00:17→19:01)
[2019-03-23] MEDS: Cefepime 2 GM in Dextrose(*) 2 GM/50 ML BAG IV SCH ×5 (00:20→23:31)
[2019-03-23] MEDS: NS 0.9% 1000 ML** 1,000 ML IV SCH ×2 (01:08→19:52)
--- NOTE | 2019-03-23 03:10 | HP ---
HISTORY AND PHYSICAL: DATE OF ADMISSION: 03/22/19 PROVIDER: Catia Stoll NP. PRIMARY CARE PROVIDER: Dori Wilburn NP. ATTENDING PHYSICIAN WHILE IN THE HOSPITAL: Iman Mitchell MD* (dictated by Catia Stoll NP). CHIEF COMPLAINT: Left lower quadrant abdominal pain. HISTORY OF PRESENT ILLNESS: Ms. Mendoza is a 58-year-old female with a past medical history significant for sleep apnea, hypothyroidism, asthma, and diverticulitis who presented to the emergency room with complaints of left lower quadrant abdominal pain. The patient reports that she has had recurrent diverticulitis which started in April 2018 and recurred in August 2018. She was admitted [place] [facility] [place] again with diverticulitis. The patient reports that she had a colonoscopy with Dr. Traylor on 03/18/19. The colonoscopy showed left-sided diverticulosis, several small polyps were removed, slight abnormal-appearing mucosa directly above the appendiceal orifice and the cecum; which was biopsied, internal hemorrhoids, and hypertrophied anal papillae. It was recommended at that time by gastroenterology that the patient be placed on a high-fiber diet in the presence of diverticulosis and that she would be referred to Dr. Vallecillo to discuss colonic resection given the patient's recurrent diverticulitis. The patient reports that yesterday she started with a small amount of left lower quadrant abdominal pain. She reports that the pain had gotten progressively worse and today, her pain was worse yet. She was feeling weak and complained of chills and does report that she had fevers. She denies any chest pain, edema, cough, hemoptysis, or shortness of breath. No nausea, vomiting, or diarrhea. She does report significant left lower quadrant abdominal pain. She does report the pain is worse with cough. She does rate the pain at a 10. She denies any hematuria, dysuria, focal weakness, or sensory loss. Denies any visual complaints, dysphagia, arthralgias, myalgias, rashes, lesions, open sores, psychosis, or anxiety. While in the emergency room, the patient had routine lab work drawn. She was found to have mild leukocytosis with a white count of 11.7 and CTA of the abdomen showing colonic diverticulosis with mild sigmoid diverticulitis, which has decreased overall since 12/27/[address] scan. Given the findings of acute diverticulitis and left lower quadrant abdominal pain, hospital medicine was asked to see and evaluate the patient for admission. PAST MEDICAL HISTORY: Significant for: 1. Sleep apnea. 2. Hypothyroid. 3. Asthma. 4. History of diverticulitis. PAST SURGICAL HISTORY: 1. Three C-sections. 2. Status post appendectomy. 3. Status post hysterectomy. 4. Status post cholecystectomy. 5. Lysis of adhesions. 6. Bilateral carpal tunnel release. 7. Right knee arthroscopy. 8. Right foot surgery. HOME MEDICATIONS: Include: 1. Levothyroxine 75 mcg p.o. daily. 2. Spiriva 1 inhaled p.o. daily. 3. Symbicort 2 puffs twice daily as needed for shortness of breath. ALLERGIES: ASPIRIN, CODEINE, and PENICILLIN. FAMILY HISTORY: Mother with a history of CHF, at the age of 88. Father with an ND, at the age of 56. Mother with diabetes. Multiple siblings with cancer - brother with breast cancer, another brother with lymphoma, another brother with colon cancer and prostate cancer, and a half sister with kidney cancer. SOCIAL HISTORY: The patient quit smoking approximately 2 years ago. Prior to that, she smoked for 15 to 20 years about a quarter pack per day. Does report occasional alcohol use. Denies any illicit drug use. She is . Surrogate decision maker in the event she is unable to make her own decisions is her . She is a full code. REVIEW OF SYSTEMS: A 14-point review of systems was completed. All pertinent positives were mentioned in the HPI. PHYSICAL EXAMINATION GENERAL: At this time, Ms. Mednoza is a 58-year-old female. She is resting comfortably on the stretcher in the emergency room. She is in no acute distress. VITAL SIGNS: Blood pressure 112/71, heart rate 55, respirations are 12, O2 saturation 96%, temperature was 97.1. HEENT: Head is atraumatic, normocephalic. Eyes: EOMs are intact. Sclerae anicteric and not pale. Oral mucosa appeared to be moist. NECK: Supple. LUNGS: Clear to auscultation bilaterally. No wheezes, rales, or rhonchi. CARDIAC: S1, S2. Regular rate and rhythm. No murmurs, rubs, or gallops. ABDOMEN: Soft. She does have significant tenderness noted to the left lower quadrant, mild tenderness to the right lower quadrant, no upper abdominal tenderness. Bowel sounds are hypoactive x4. EXTREMITIES: She is able to move all 4 extremities. Pedal pulses are +2 bilaterally. There is no clubbing or cyanosis. NEUROLOGIC: She is awake, alert, oriented x3. Speech is clear. Thought process is intact. There are no gross focal deficits. SKIN: Intact. LABORATORY DATA AND DIAGNOSTIC STUDIES: WBCs are 11.7, RBCs 4.50, hemoglobin 11.9, hematocrit was 36. Sodium 135, potassium 3.5, chloride 103, carbon dioxide is 25, anion gap was 7, BUN was 8, creatinine 0.77, glucose is 95, lactic acid 0.7, calcium 9.8. Total bilirubin 1.10. ASTs are 17, ALTs are 21, alkaline phosphatase is 97. C-reactive protein is 87.9. Lipase is 16. Urine was within normal limits with the exception of specific gravity which was 1.004. She had a CT of the abdomen and pelvis, radiologist's impression: Colonic diverticulosis with mild sigmoid diverticulitis, which has decreased overall since 12/27/18. There has been prior cholecystectomy and hysterectomy, fatty infiltration of the liver. Otherwise, negative CT of the abdomen and pelvis. ASSESSMENT AND PLAN: Ms. Mendoza is a 58-year-old female with a past medical history significant for hypothyroid, asthma, sleep apnea, and diverticulitis with history of diverticulosis with recurrent diverticulitis who presented to the emergency room with complaints of left lower quadrant abdominal pain. She will be admitted inpatient for: 1. Abdominal pain. I suspect this is related to diverticulitis. The patient did have a colonoscopy with Dr. Traylor. Please refer to her procedure report for complete details from 03/18/19. The patient reports that she felt left lower quadrant abdominal pain that started yesterday and is progressively worsening. CT of the abdomen showed mild sigmoid diverticulitis. She was given Cipro and Flagyl in the emergency room. I will continue her on cefepime and Flagyl for diverticulitis. The patient has had multiple bouts of diverticulitis since April 2018. It was recommended by gastroenterology and the colonoscopy report that the patient be referred to surgery to discuss colon resection due to recurrent diverticulitis. I will consult surgery in the morning. The patient will be placed on normal saline at 75 cc and IV fluids. We will continue to monitor. She will have morphine as needed for pain. I will also order Toradol. 2. Asthma. The patient should continue on Spiriva and Symbicort as needed for shortness of breath. 3. Hypothyroid. She should continue on levothyroxine 75 mcg p.o. daily. 4. History of sleep apnea. The patient should wear a CPAP at night. 5. FEN. She can have a clear liquid diet. 6. Code status. She is a full code. 7. DVT prophylaxis. I will place her on SCDs. TIME SPENT: Time spent on this admission was 60 minutes, greater than half that time was spent at the bedside reviewing events leading thus far to her hospitalization, performing physical exam, and reviewing my plan of care. I have discussed this with my attending, Dr. Iman Mitchell; she is in agreement with my plan. CATIA STOLL NP [id number]/[facility] #: [id number] ANGÉLICA
[2019-03-23 05:46] LABS: ABS Basophils 0.1 10^3/ul (0-0.2); ABS Eosinophils 0.1 10^3/ul (0-0.6); ABS Monocytes 0.8 10^3/ul (0-0.8); ABS Neutrophils 8.5 10^3/ul (1.5-7.7); Eosinophil % 0.5 %; Hematocrit 35 % (35-47); Hemoglobin 11.5 g/dL (12.0-16.0); Lymphocyte % 17.7 %; Mean Corpuscular HGB Conc 33 g/dL (31-36); Mean Corpuscular Hemoglobin 27 pg (27-31); Mean Corpuscular Volume 82 fL (80-97); Mean Platelet Volume 8.6 fL (7.4-10.4); Platelet Count 218 10^3/uL (150-450); Red Blood Count 4.27 10^6 /uL (3.70-4.87); Red Cell Distribution Width 15 % (10-15); White Blood Count 11.3 10^3/uL (3.5-10.8)
[2019-03-23 06:02] LABS: Calcium 9.4 mg/dL (8.6-10.3); EGFR African American 99.8 (>60); EGFR Non-African American 82.5 (>60); Potassium 4.7 mmol/L (3.5-5.0)
[2019-03-23] MEDS: Levothyroxine TAB* 75 MCG TAB PO SCH (06:06)
[2019-03-23] MEDS: SPIRIVA Respimat* (tiotropium) 2.5 mcg/inh Inhaler INH SCH (07:15)
[2019-03-23] MEDS: Ketorolac INJ* 15 MG/ML 1 ML VIAL IV PUSH PRN ×3 (08:31→23:30)
[2019-03-23] MEDS: metroNIDAZOLE IV 500 MG/100ML* 500 MG/100 ML BAG IVPB SCH ×2 (08:33→16:50)
[2019-03-23] MEDS: Morphine 4 MG/ML VIAL (1 ml) 4 MG/ML VIAL IV PRN ×2 (11:26→19:01)
--- NOTE | 2019-03-23 12:03 | CONS ---
CONSULTATION REPORT: DATE OF CONSULT: 03/23/19 CHIEF COMPLAINT: Abdominal pain and diverticulitis. HISTORY OF PRESENT ILLNESS: This pleasant 58-year-old female who was admitted by the medical service for diverticulitis. This was her 4th episode in under 2 years. She had recurrent left lower quadran t pain and presented to the emergency room. She has had a recent colonoscopy in late February by Dr. Buzz Wilson, which showed diverticulosis of the sigmoid colon. Her pain persisted. CT scan performed here revealed diverticulitis. Pain severity 10 at its worst, sharp, left lower quadrant. PAST MEDICAL HISTORY: Sleep apnea, hypothyroid, asthma, and the above-mentioned diverticulitis. PAST SURGICAL HISTORY: Appendectomy, cholecystectomy, hysterectomy, 3 C-sections, lysis of adhesions , carpal tunnel surgery bilaterally, right knee arthroscopy and right foot surgery. MEDICATIONS: At home include: 1. Levothyroxine. 2. Spiriva. 3. Symbicort. ALLERGIES: ASPIRIN, CODEINE and PENICILLIN. FAMILY HISTORY: Father had cardiac disease. She had a brother with colon cancer and prostate cancer . SOCIAL HISTORY: She is an ex-smoker, quitting 2 years ago. Occasional alcohol use. She is . REVIEW OF SYSTEMS: General: Denies weight loss and change of appetite. HEENT: No changes in vision , hearing, swallowing. No sore throat. Cardiac: No chest pain. Pulmonary: No cough. GI: No blo od per rectum. : No hematuria. Skin: Denies rash. Neuro: No headache or dizziness. Musculoske letal: No extremity weakness. Psych: No anxiety or depression. PHYSICAL EXAM: General: Osmin female complaining of discomfort in her left lower quadrant. She is afebrile. Vital signs stable. HEENT: The sclerae are anicteric. Oral mucosa is pink and moist. Neck is supple. No JVD. No masses. Heart: Regular. Lungs: Clear. Abdomen: Soft. Tender in t he left lower quadrant. No masses or organomegaly. No signs of peritonitis. Skin: No rashes, mariah chiae, or jaundice. Neuro Exam: Grossly intact. No focal motor or sensory deficits. Extremities: No clubbing, cyanosis, or edema. DIAGNOSTIC STUDIES/LAB DATA: Laboratory studies showed mildly elevated white blood cell count. IMPRESSION: Sigmoid diverticulitis, multiple events. We discussed surgical treatment including sigm oid resection and anastomosis. We discussed robotic surgery, which she is interested in. Plan will be for continue the antibiotics here. Once she improves, she can see me in the office after discharg e with plans for elective colectomy in the near future once this episode resolves. [id number]/[facility] #: [id number]
--- NOTE | 2019-03-23 13:53 | PN ---
Subjective Date of Service: 03/23/19 Interval History: Resting in bed on assessment. Reports abd pain has only slightly improved since admission. Tolerating clears. Denies fever or chills. Reports mild intermittent nausea. No diarrhea. Reports she met with General Surgery today and she is pleased with the plan of elective resection without ostomy as outpatient. Objective Active Medications: Acetaminophen (Tylenol Tab*) 650 mg PO Q4H PRN PRN Reason: MILD PAIN or TEMP > 100.4 Metronidazole/Sodium Chloride (Flagyl 500 Mg Ivpb*) 500 mg in 100 mls @ 100 mls /hr IVPB Q8H [facility] Last Admin: 03/23/19 08:33 Dose: 100 mls/hr Sodium Chloride (Ns 0.9% 1000 Ml) 1,000 mls @ 100 mls/hr IV PER RATE [facility] Last Admin: 03/23/19 01:08 Dose: 100 mls/hr Cefepime HCl (Maxipime 2 Gm In Dextrose Duplex (*)) 2 gm in 50 mls @ 100 mls/ hr IV 0000,1200 [facility] Last Admin: 03/23/19 11:28 Dose: 100 mls/hr Ketorolac Tromethamine (Toradol Inj*) 15 mg IV PUSH Q6H PRN PRN Reason: PAIN - MILD Last Admin: 03/23/19 08:31 Dose: 15 mg Levothyroxine Sodium (Synthroid Tab*) 75 mcg PO DAILY@0600 [facility] Last Admin: 03/23/19 06:06 Dose: 75 mcg Mometasone Furoate/Formoterol Fumar (Dulera 100/5 Mdi*) 2 puff INH BID PRN PRN Reason: WHEEZING Morphine Sulfate (Morphine 4 Mg/Ml Vial (1 Ml)) 4 mg IV Q4H PRN PRN Reason: PAIN - SEVERE Last Admin: 03/23/19 11:26 Dose: 4 mg Ondansetron HCl (Zofran Inj*) 4 mg IV Q6H PRN PRN Reason: NAUSEA/VOMITING Last Admin: 03/23/19 11:26 Dose: 4 mg Tiotropium [place] (Spiriva Respimat 2.5 Mcg) 2 puff INH DAILY [facility] Last Admin: 03/23/19 07:15 Dose: 2 puff Vital Signs - 8 hr 03/23/19 03/23/19 03/23/19 07:15 08:00 11:26 Temperature 97.3 F Pulse Rate 51 Respiratory 19 19 14 Rate Blood Pressure 104/72 (mmHg) O2 Sat by Pulse 98 Oximetry 03/23/19 13:35 Temperature Pulse Rate Respiratory 14 Rate Blood Pressure (mmHg) O2 Sat by Pulse Oximetry Oxygen Devices in Use Now: None Appearance: Comfortable, NAD Eyes: No Scleral Icterus Ears/Nose/Mouth/Throat: Clear Oropharnyx, Mucous Membranes Moist Neck: NL Appearance and Movements; NL JVP Respiratory: Symmetrical Chest Expansion and Respiratory Effort, Clear to Auscultation Cardiovascular: NL Sounds; No Murmurs; No JVD, RRR, No Edema Abdominal: - - Soft. BS+. Tender to LLQ. Lymphatic: No Cervical Adenopathy Skin: No Rash or Ulcers Neurological: Alert and Oriented x 3 Nutrition: Taking PO's Result Diagrams: 03/23/19 05:37 03/23/19 05:37 Additional Lab and Data: Laboratory Results - last 24 hr 03/22/19 03/22/19 03/22/19 19:30 19:30 19:30 WBC 11.7 H RBC 4.50 Hgb 11.9 L Hct 36 MCV 80 MCH 27 MCHC 33 RDW 15 Plt Count 230 MPV 8.6 Neut % (Auto) 65.7 Lymph % (Auto) 22.8 [place] % (Auto) 8.9 Eos % (Auto) 1.8 Baso % (Auto) 0.8 Absolute Neuts (auto) 7.7 Absolute Lymphs (auto) 2.7 Absolute Monos (auto) 1.0 H Absolute Eos (auto) 0.2 Absolute Basos (auto) 0.1 Absolute Nucleated RBC 0.0 Nucleated RBC % 0.0 Sodium 135 Potassium 3.5 Chloride 103 Carbon Dioxide 25 Anion Gap 7 BUN 8 Creatinine 0.77 Est GFR ( Amer) 93.8 Est GFR (Non-Af Amer) 77.5 BUN/Creatinine Ratio 10.4 Glucose 95 Lactic Acid 0.7 Calcium 9.8 Total Bilirubin 1.10 H AST 17 ALT 21 Alkaline Phosphatase 97 C-Reactive Protein 87.90 H Total Protein 7.2 Albumin 4.3 Globulin 2.9 Albumin/Globulin Ratio 1.5 Lipase 16 Urine Color Urine Appearance Urine pH Ur Specific [place] Urine Protein Urine Ketones Urine Blood Urine Nitrate Urine Bilirubin Urine Urobilinogen Ur Leukocyte Esterase Urine Glucose 03/22/19 03/23/19 03/23/19 20:32 05:37 05:37 WBC 11.3 H RBC 4.27 Hgb 11.5 L Hct 35 MCV 82 MCH 27 MCHC 33 RDW 15 Plt Count 218 MPV 8.6 Neut % (Auto) 74.6 Lymph % (Auto) 17.7 [place] % (Auto) 6.7 Eos % (Auto) 0.5 Baso % (Auto) 0.5 Absolute Neuts (auto) 8.5 H Absolute Lymphs (auto) 2.0 Absolute Monos (auto) 0.8 Absolute Eos (auto) 0.1 Absolute Basos (auto) 0.1 Absolute Nucleated RBC 0.0 Nucleated RBC % 0.0 Sodium 137 Potassium 4.7 Chloride 105 Carbon Dioxide 28 Anion Gap 4 BUN 8 Creatinine 0.73 Est GFR ( Amer) 99.8 Est GFR (Non-Af Amer) 82.5 BUN/Creatinine Ratio 11.0 Glucose 126 H Lactic Acid Calcium 9.4 Total Bilirubin AST ALT Alkaline Phosphatase C-Reactive Protein Total Protein Albumin Globulin Albumin/Globulin Ratio Lipase Urine Color Straw Urine Appearance Clear Urine pH 6.0 Ur Specific [place] 1.004 L Urine Protein Negative Urine Ketones Negative Urine Blood Negative Urine Nitrate Negative Urine Bilirubin Negative Urine Urobilinogen Negative Ur Leukocyte Esterase Negative Urine Glucose Negative Microbiology and Other Data: . Assess/Plan/Problems-Billing Assessment: 58 yr old female with pmh of sleep apnea, hypothyroid, asthma and diverticulitis ; who presented to ED with LLQ pain and was found to have diverticulitis. - Patient Problems (1) LLQ abdominal pain Comment: - Secondary to diverticulitis - Cont morphine and Toradol - Continue clears as long as patient is tolerating (2) Diverticulitis Comment: - 4th episode in under 2 years - Cont Cefepime and Flagyl - General Surgery consulting and plan for resection as outpatient after this episode (3) Nausea Comment: - Cont Zofran (4) Sleep apnea assessment Comment: - Continue CPAP at night (5) Hypothyroid Comment: - Continue home dose levothyroxine. (6) DVT prophylaxis Comment: - SCDs and ambulation Status and Disposition: Inpatient Attending: Petrona Gray
[2019-03-24] MEDS: metroNIDAZOLE IV 500 MG/100ML* 500 MG/100 ML BAG IVPB SCH ×4 (00:36→23:50)
[2019-03-24] MEDS: Morphine 4 MG/ML VIAL (1 ml) 4 MG/ML VIAL IV PRN (05:09)
[2019-03-24] MEDS: Ondansetron INJ* 2 MG/ML VIAL IV PRN ×2 (05:14→21:42)
[2019-03-24 05:31] LABS: ABS Eosinophils 0.5 10^3/ul (0-0.6); ABS Monocytes 0.7 10^3/ul (0-0.8); ABS Neutrophils 4.5 10^3/ul (1.5-7.7); Eosinophil % 6.1 %; Hematocrit 32 % (35-47); Hemoglobin 10.5 g/dL (12.0-16.0); Lymphocyte % 25.5 %; Mean Corpuscular HGB Conc 32 g/dL (31-36); Mean Corpuscular Hemoglobin 27 pg (27-31); Mean Corpuscular Volume 82 fL (80-97); Platelet Count 187 10^3/uL (150-450); Red Blood Count 3.94 10^6 /uL (3.70-4.87); Red Cell Distribution Width 15 % (10-15); White Blood Count 7.8 10^3/uL (3.5-10.8)
[2019-03-24] MEDS: Levothyroxine TAB* 75 MCG TAB PO SCH (05:44)
[2019-03-24 05:50] LABS: BUN/Creatinine Ratio 9.3 (8-20); Calcium 8.7 mg/dL (8.6-10.3); EGFR African American 96.7 (>60); EGFR Non-African American 79.9 (>60)
[2019-03-24] MEDS: NS 0.9% 1000 ML** 1,000 ML IV SCH (07:48)
[2019-03-24] MEDS: Ketorolac INJ* 15 MG/ML 1 ML VIAL IV PUSH PRN ×2 (08:53→16:40)
[2019-03-24] MEDS: Famotidine TAB* 20 MG PO SCH (08:53)
[2019-03-24] MEDS: SPIRIVA Respimat* (tiotropium) 2.5 mcg/inh Inhaler INH SCH (09:14)
--- NOTE | 2019-03-24 09:36 | PN ---
Progress Note - Progress Note Date of Service: 03/24/19 SOAP: Subjective: [] "better than yesterday" no bm, + flatus, hungry Objective: [] Temp Pulse Resp BP Pulse Ox 97.8 F 70 16 117/59 98 03/24/19 07:15 03/24/19 09:15 03/24/19 09:15 03/24/19 07:15 03/24/19 09:15 Laboratory Last Values WBC 7.8 10^3/uL (3.5-10.8) 03/24/19 05:08 RBC 3.94 10^6 /uL (3.70-4.87) 03/24/19 05:08 Hgb 10.5 g/dL (12.0-16.0) L 03/24/19 05:08 Hct 32 % (35-47) L 03/24/19 05:08 MCV 82 fL (80-97) 03/24/19 05:08 MCH 27 pg (27-31) 03/24/19 05:08 MCHC 32 g/dL (31-36) 03/24/19 05:08 RDW 15 % (10-15) 03/24/19 05:08 Plt Count 187 10^3/uL (150-450) 03/24/19 05:08 MPV 9.0 fL (7.4-10.4) 03/24/19 05:08 Neut % (Auto) 58.2 % 03/24/19 05:08 Lymph % (Auto) 25.5 % 03/24/19 05:08 [place] % (Auto) 9.6 % 03/24/19 05:08 Eos % (Auto) 6.1 % 03/24/19 05:08 Baso % (Auto) 0.6 % 03/24/19 05:08 Absolute Neuts (auto) 4.5 10^3/ul (1.5-7.7) 03/24/19 05:08 Absolute Lymphs (auto) 2.0 10^3/ul (1.0-4.8) 03/24/19 05:08 Absolute Monos (auto) 0.7 10^3/ul (0-0.8) 03/24/19 05:08 Absolute Eos (auto) 0.5 10^3/ul (0-0.6) 03/24/19 05:08 Absolute Basos (auto) 0.0 10^3/ul (0-0.2) 03/24/19 05:08 Absolute Nucleated RBC 0.0 10^3/ul 03/24/19 05:08 Nucleated RBC % 0.0 03/24/19 05:08 Sodium 142 mmol/L (135-145) 03/24/19 05:08 Potassium 4.0 mmol/L (3.5-5.0) 03/24/19 05:08 Chloride 112 mmol/L (101-111) H 03/24/19 05:08 Carbon Dioxide 28 mmol/L (22-32) 03/24/19 05:08 Anion Gap 2 mmol/L (2-11) 03/24/19 05:08 BUN 7 mg/dL (6-24) 03/24/19 05:08 Creatinine 0.75 mg/dL (0.51-0.95) 03/24/19 05:08 Est GFR ( Amer) 96.7 (>60) 03/24/19 05:08 Est GFR (Non-Af Amer) 79.9 (>60) 03/24/19 05:08 BUN/Creatinine Ratio 9.3 (8-20) 03/24/19 05:08 Glucose 90 mg/dL (70-100) 03/24/19 05:08 Lactic Acid 0.7 mmol/L (0.5-2.0) 03/22/19 19:30 Calcium 8.7 mg/dL (8.6-10.3) 03/24/19 05:08 Total Bilirubin 1.10 mg/dL (0.2-1.0) H 03/22/19 19:30 AST 17 U/L (13-39) 03/22/19 19:30 ALT 21 U/L (7-52) 03/22/19 19:30 Alkaline Phosphatase 97 U/L (34-104) 03/22/19 19:30 Troponin I 0.00 ng/mL (<0.04) 03/24/19 08:45 C-Reactive Protein 87.90 mg/L (<8.01) H 03/22/19 19:30 Total Protein 7.2 g/dL (6.4-8.9) 03/22/19 19:30 Albumin 4.3 g/dL (3.2-5.2) 03/22/19 19:30 Globulin 2.9 g/dL (2-4) 03/22/19 19:30 Albumin/Globulin Ratio 1.5 (1-3) 03/22/19 19:30 Lipase 16 U/L (11.0-82.0) 03/22/19 19:30 Urine Color Straw 03/22/19 20:32 Urine Appearance Clear 03/22/19 20:32 Urine pH 6.0 (5-9) 03/22/19 20:32 Ur Specific [place] 1.004 (1.010-1.030) L 03/22/19 20:32 Urine Protein Negative (Negative) 03/22/19 20:32 Urine Ketones Negative (Negative) 03/22/19 20:32 Urine Blood Negative (Negative) 03/22/19 20:32 Urine Nitrate Negative (Negative) 03/22/19 20:32 Urine Bilirubin Negative (Negative) 03/22/19 20:32 Urine Urobilinogen Negative (Negative) 03/22/19 20:32 Ur Leukocyte Esterase Negative (Negative) 03/22/19 20:32 Urine Glucose Negative (Negative) 03/22/19 20:32 abdomen soft llq less tender-improved Assessment: [] diverticulitis, improving Plan: []advance to low residue, cont abx, f/u with me in office after discharge
[2019-03-24] MEDS ORDERED: Benzonatate CAP* 100 MG PO PRN (10:31)
--- NOTE | 2019-03-24 10:34 | PN ---
Subjective Date of Service: 03/24/19 Interval History: When patient awoke this morning around 7am, was complaining of central chest pain that radiated into her neck and left chest. Patient tells me it was worse when nursing pressed. EKG and troponin ordered at that time. Now at time of evaluation, has received toradol and pain is resolved. Patient has not yet had a bowel movement in the hospital. Has been tolerating clear liquid diet. Tells me she feels "cold at times" but not experiencing rigors. Abdominal pain in LLQ is continued but says it's slightly improved. Denies nausea, vomiting, fever, shortness of breath. Dry cough continues. Objective Active Medications: Acetaminophen (Tylenol Tab*) 650 mg PO Q4H PRN PRN Reason: MILD PAIN or TEMP > 100.4 Famotidine (Pepcid Tab*) 20 mg PO DAILY [facility] Last Admin: 03/24/19 08:53 Dose: 20 mg Metronidazole/Sodium Chloride (Flagyl 500 Mg Ivpb*) 500 mg in 100 mls @ 100 mls /hr IVPB Q8H [facility] Last Admin: 03/24/19 07:48 Dose: 100 mls/hr Sodium Chloride (Ns 0.9% 1000 Ml) 1,000 mls @ 100 mls/hr IV PER RATE [facility] Last Admin: 03/24/19 07:48 Dose: 100 mls/hr Cefepime HCl (Maxipime 2 Gm In Dextrose Duplex (*)) 2 gm in 50 mls @ 100 mls/ hr IV 0000,1200 [facility] [place] Last Admin: 03/23/19 23:31 Dose: 100 mls/hr Ketorolac Tromethamine (Toradol Inj*) 15 mg IV PUSH Q6H PRN PRN Reason: PAIN - MILD Last Admin: 03/24/19 08:53 Dose: 15 mg Levothyroxine Sodium (Synthroid Tab*) 75 mcg PO DAILY@0600 [facility] Last Admin: 03/24/19 05:44 Dose: 75 mcg Mometasone Furoate/Formoterol Fumar (Dulera 100/5 Mdi*) 2 puff INH BID PRN PRN Reason: WHEEZING Morphine Sulfate (Morphine 4 Mg/Ml Vial (1 Ml)) 4 mg IV Q4H PRN PRN Reason: PAIN - SEVERE Last Admin: 03/24/19 05:09 Dose: 4 mg Ondansetron HCl (Zofran Inj*) 4 mg IV Q6H PRN PRN Reason: NAUSEA/VOMITING Last Admin: 03/24/19 05:14 Dose: 4 mg Tiotropium [place] (Spiriva Respimat 2.5 Mcg) 2 puff INH DAILY [facility] Last Admin: 03/24/19 09:14 Dose: 2 puff Vital Signs - 8 hr 03/24/19 03/24/19 03/24/19 03:31 04:41 05:09 Temperature 99 F Pulse Rate 48 49 Respiratory 18 16 Rate Blood Pressure 91/52 98/54 (mmHg) O2 Sat by Pulse 97 Oximetry 03/24/19 03/24/19 03/24/19 06:24 06:57 07:15 Temperature 97.8 F Pulse Rate 55 57 Respiratory 16 16 20 Rate Blood Pressure 121/77 117/59 (mmHg) O2 Sat by Pulse 98 99 Oximetry 03/24/19 03/24/19 09:15 09:49 Temperature Pulse Rate 70 Respiratory 16 16 Rate Blood Pressure (mmHg) O2 Sat by Pulse 98 Oximetry Oxygen Devices in Use Now: None Appearance: Obese, white, middle aged female, laying in bed, appearing in NAD Eyes: No Scleral Icterus, PERRLA Ears/Nose/Mouth/Throat: Mucous Membranes Moist Neck: NL Appearance and Movements; NL JVP Respiratory: Symmetrical Chest Expansion and Respiratory Effort, Clear to Auscultation Cardiovascular: NL Sounds; No Murmurs; No JVD, RRR, - - no tenderness to palpation of chest wall at time of my evaluation after toradol administered Abdominal: - - normactive BS [id number], tenderness to palpation in LLQ; no distension Extremities: No Edema, No Clubbing, Cyanosis Skin: No Rash or Ulcers Neurological: Alert and Oriented x 3, NL Muscle Strength and Tone Result Diagrams: 03/24/19 05:08 03/24/19 05:08 Additional Lab and Data: Laboratory Results - last 24 hr 03/22/19 03/22/19 03/22/19 19:30 19:30 19:30 WBC 11.7 H RBC 4.50 Hgb 11.9 L Hct 36 MCV 80 MCH 27 MCHC 33 RDW 15 Plt Count 230 MPV 8.6 Neut % (Auto) 65.7 Lymph % (Auto) 22.8 [place] % (Auto) 8.9 Eos % (Auto) 1.8 Baso % (Auto) 0.8 Absolute Neuts (auto) 7.7 Absolute Lymphs (auto) 2.7 Absolute Monos (auto) 1.0 H Absolute Eos (auto) 0.2 Absolute Basos (auto) 0.1 Absolute Nucleated RBC 0.0 Nucleated RBC % 0.0 Sodium 135 Potassium 3.5 Chloride 103 Carbon Dioxide 25 Anion Gap 7 BUN 8 Creatinine 0.77 Est GFR ( Amer) 93.8 Est GFR (Non-Af Amer) 77.5 BUN/Creatinine Ratio 10.4 Glucose 95 Lactic Acid 0.7 Calcium 9.8 Total Bilirubin 1.10 H AST 17 ALT 21 Alkaline Phosphatase 97 C-Reactive Protein 87.90 H Total Protein 7.2 Albumin 4.3 Globulin 2.9 Albumin/Globulin Ratio 1.5 Lipase 16 Urine Color Urine Appearance Urine pH Ur Specific [place] Urine Protein Urine Ketones Urine Blood Urine Nitrate Urine Bilirubin Urine Urobilinogen Ur Leukocyte Esterase Urine Glucose 03/22/19 03/23/19 03/23/19 20:32 05:37 05:37 WBC 11.3 H RBC 4.27 Hgb 11.5 L Hct 35 MCV 82 MCH 27 MCHC 33 RDW 15 Plt Count 218 MPV 8.6 Neut % (Auto) 74.6 Lymph % (Auto) 17.7 [place] % (Auto) 6.7 Eos % (Auto) 0.5 Baso % (Auto) 0.5 Absolute Neuts (auto) 8.5 H Absolute Lymphs (auto) 2.0 Absolute Monos (auto) 0.8 Absolute Eos (auto) 0.1 Absolute Basos (auto) 0.1 Absolute Nucleated RBC 0.0 Nucleated RBC % 0.0 Sodium 137 Potassium 4.7 Chloride 105 Carbon Dioxide 28 Anion Gap 4 BUN 8 Creatinine 0.73 Est GFR ( Amer) 99.8 Est GFR (Non-Af Amer) 82.5 BUN/Creatinine Ratio 11.0 Glucose 126 H Lactic Acid Calcium 9.4 Total Bilirubin AST ALT Alkaline Phosphatase C-Reactive Protein Total Protein Albumin Globulin Albumin/Globulin Ratio Lipase Urine Color Straw Urine Appearance Clear Urine pH 6.0 Ur Specific [place] 1.004 L Urine Protein Negative Urine Ketones Negative Urine Blood Negative Urine Nitrate Negative Urine Bilirubin Negative Urine Urobilinogen Negative Ur Leukocyte Esterase Negative Urine Glucose Negative Microbiology and Other Data: . Assess/Plan/Problems-Billing Assessment: 58 yr old female with pmh of sleep apnea, hypothyroid, asthma and diverticulitis ; who presented to ED with LLQ pain and was found to have diverticulitis. - Patient Problems (1) Diverticulitis Current Visit: No Status: Acute Comment: - 4th episode in under 2 years - Cont Cefepime and Flagyl - General Surgery consulting and plan for resection as outpatient after this episode - Advance diet to low resident per general surgery recommendation - Nausea resolved, abd pain minimally improved - Continue prn zofran, prn tylenol/toradol/morphine for pain - Leukocytosis resolved today (2) Chest pain Current Visit: Yes Status: Acute Code(s): R07.9 - CHEST PAIN, UNSPECIFIED SNOMED Code(s): 96167135 Comment: -c/o central chest pain radiating to neck and left chest, later resolved at time of my evaluation -EKG with T wave inversion in III and T wave flattening in aVF, which is consistent with prior EKGs -troponin negative x 2 -likely musculoskeletal given resolution with toradol (3) Cough Current Visit: Yes Status: Acute Code(s): R05 - COUGH SNOMED Code(s): 77748597 Comment: -dry cough x 1 week -ordered prn tessalon perles (4) Asthma Current Visit: No Status: Acute Code(s): J45.909 - UNSPECIFIED ASTHMA, UNCOMPLICATED SNOMED Code(s): 913834739 Comment: -Continue tiotropium home spiriva -No evidence of acute exacerbation, though does have dry cough -Uses ICS/LABA prn at home, would perhaps benefit from one dose today (5) VIKTOR (obstructive sleep apnea) Current Visit: Yes Status: Acute Code(s): G47.33 - OBSTRUCTIVE SLEEP APNEA ( ADULT) (PEDIATRIC) SNOMED Code(s): 63019820 Comment: -continue CPAP at night (6) Hypothyroid Current Visit: No Status: Acute Code(s): E03.9 - HYPOTHYROIDISM, UNSPECIFIED SNOMED Code(s): 10529657 Comment: - Continue home dose levothyroxine (7) DVT prophylaxis Current Visit: Yes Status: Acute Code(s): Z29.9 - ENCOUNTER FOR PROPHYLACTIC MEASURES, UNSPECIFIED SNOMED Code(s): 932463982 Comment: - SCDs and ambulation (8) Full code status Current Visit: Yes Status: Acute Code(s): Z78.9 - OTHER SPECIFIED HEALTH STATUS SNOMED Code(s): 576493947 Status and Disposition: Inpatient
[2019-03-24] MEDS: Cefepime 2 GM in Dextrose(*) 2 GM/50 ML BAG IV SCH ×2 (12:24→23:04)
[2019-03-24] MEDS ORDERED: Morphine 4 MG/ML VIAL (1 ml) 4 MG/ML VIAL IV PRN (18:42)
[2019-03-25] MEDS: Ketorolac INJ* 15 MG/ML 1 ML VIAL IV PUSH PRN (03:10)
[2019-03-25] MEDS: Levothyroxine TAB* 75 MCG TAB PO SCH (05:09)
[2019-03-25] MEDS: oxyCODONE/Acetamin 5/325 MG* TAB PO PRN ×2 (05:12→22:50)
[2019-03-25] MEDS: SPIRIVA Respimat* (tiotropium) 2.5 mcg/inh Inhaler INH SCH (07:29)
[2019-03-25] MEDS: Famotidine TAB* 20 MG PO SCH (07:59)
[2019-03-25] MEDS: metroNIDAZOLE IV 500 MG/100ML* 500 MG/100 ML BAG IVPB SCH ×2 (07:59→16:51)
--- NOTE | 2019-03-25 10:52 | PN ---
Progress Note - Progress Note Date of Service: 03/25/19 SOAP: Subjective:less pain,had a formed stool,tolerated low fiber breakfast [] Objective: Vital Signs Temp 97.6 F 03/25/19 07:40 Pulse 59 03/25/19 07:40 Resp 16 03/25/19 08:04 BP 111/53 03/25/19 07:40 Pulse Ox 97 03/25/19 07:40 Intake & Output 03/24/19 03/25/19 03/25/19 18:59 06:59 18:59 Intake Total 1810 235 240 Balance 1810 235 240 Intake: IV Fluids 940 180 ABX - CEFEPIME 50 NS (0.9%) 840 30 flagyl 100 100 IVPB 50 55 ABX - CEFEPIME 50 NS (0.9%) 55 Oral 820 0 240 Other: Estimated Void Large # Bowel Movements 1 0 Estimated Stool Amount Small # Voids 2 1 abd:+bs,obese,well healed surgical scars,soft,nondistended,tender LLQ and suprapubic region,mild guarding [] Assessment:sigmoid diverticulitis,improving on IV antibiotics and able to advance diet [] Plan:nutrition consult for low fiber diet instruction recommend oral antibiotics for 7-10 days on discharge appointment with 04/02/19 at 10:30 at [facility] []
[2019-03-25] MEDS: Cefepime 2 GM in Dextrose(*) 2 GM/50 ML BAG IV SCH ×2 (13:23→23:40)
--- NOTE | 2019-03-25 20:40 | PN ---
Subjective Date of Service: 03/25/19 Interval History: Patient tolerating diet well today. Patient had significantly worsened abdominal pain overnight. Abdominal pain is better during the day today, and better compared to day prior. Patient tells me she still has 6/10 pain at rest to LLQ. Denies fever/chills, chest pain, difficulty breathing. She moved her bowels today. Objective Active Medications: Acetaminophen (Tylenol Tab*) 650 mg PO Q4H PRN PRN Reason: MILD PAIN or TEMP > 100.4 Benzonatate (Tessalon Cap*) 100 mg PO BID PRN PRN Reason: COUGH Famotidine (Pepcid Tab*) 20 mg PO DAILY [facility] Last Admin: 03/25/19 07:59 Dose: 20 mg Metronidazole/Sodium Chloride (Flagyl 500 Mg Ivpb*) 500 mg in 100 mls @ 100 mls /hr IVPB Q8H [facility] Last Admin: 03/25/19 16:51 Dose: 100 mls/hr Cefepime HCl (Maxipime 2 Gm In Dextrose Duplex (*)) 2 gm in 50 mls @ 100 mls/ hr IV 0000,1200 [facility] Last Admin: 03/25/19 13:23 Dose: 100 mls/hr Ketorolac Tromethamine (Toradol Inj*) 15 mg IV PUSH Q6H PRN PRN Reason: PAIN - MILD Last Admin: 03/25/19 03:10 Dose: 15 mg Levothyroxine Sodium (Synthroid Tab*) 75 mcg PO DAILY@0600 [facility] Last Admin: 03/25/19 05:09 Dose: 75 mcg Mometasone Furoate/Formoterol Fumar (Dulera 100/5 Mdi*) 2 puff INH BID PRN PRN Reason: WHEEZING Morphine Sulfate (Morphine 4 Mg/Ml Vial (1 Ml)) 4 mg IV Q4H PRN PRN Reason: severe pain breakthrough Last Admin: 03/24/19 21:42 Dose: 4 mg Ondansetron HCl (Zofran Inj*) 4 mg IV Q6H PRN PRN Reason: NAUSEA/VOMITING Last Admin: 03/24/19 21:42 Dose: 4 mg Oxycodone/Acetaminophen (Percocet 5/325 Tab*) 1 tab PO Q4H PRN PRN Reason: PAIN - SEVERE Last Admin: 03/25/19 05:12 Dose: 1 tab Tiotropium [place] (Spiriva Respimat 2.5 Mcg) 2 puff INH DAILY [facility] Last Admin: 03/25/19 07:29 Dose: 2 puff Vital Signs - 8 hr 03/25/19 03/25/19 15:53 19:06 Temperature 98.4 F 98.1 F Pulse Rate 71 68 Respiratory 20 20 Rate Blood Pressure 103/55 111/62 (mmHg) O2 Sat by Pulse 96 94 Oximetry Oxygen Devices in Use Now: None Appearance: Obese, while female laying in bed appearing in NAD Eyes: No Scleral Icterus, PERRLA Ears/Nose/Mouth/Throat: Mucous Membranes Moist Neck: NL Appearance and Movements; NL JVP Respiratory: Symmetrical Chest Expansion and Respiratory Effort, Clear to Auscultation Cardiovascular: NL Sounds; No Murmurs; No JVD, RRR Abdominal: - - tendernes to LLQ, abd soft and nondistended; normoactive BSx4Q Extremities: No Edema, No Clubbing, Cyanosis Skin: No Rash or Ulcers Neurological: Alert and Oriented x 3, NL Muscle Strength and Tone Result Diagrams: 03/24/19 05:08 03/24/19 05:08 Additional Lab and Data: Laboratory Results - last 24 hr 03/22/19 03/22/19 03/22/19 19:30 19:30 19:30 WBC 11.7 H RBC 4.50 Hgb 11.9 L Hct 36 MCV 80 MCH 27 MCHC 33 RDW 15 Plt Count 230 MPV 8.6 Neut % (Auto) 65.7 Lymph % (Auto) 22.8 [place] % (Auto) 8.9 Eos % (Auto) 1.8 Baso % (Auto) 0.8 Absolute Neuts (auto) 7.7 Absolute Lymphs (auto) 2.7 Absolute Monos (auto) 1.0 H Absolute Eos (auto) 0.2 Absolute Basos (auto) 0.1 Absolute Nucleated RBC 0.0 Nucleated RBC % 0.0 Sodium 135 Potassium 3.5 Chloride 103 Carbon Dioxide 25 Anion Gap 7 BUN 8 Creatinine 0.77 Est GFR ( Amer) 93.8 Est GFR (Non-Af Amer) 77.5 BUN/Creatinine Ratio 10.4 Glucose 95 Lactic Acid 0.7 Calcium 9.8 Total Bilirubin 1.10 H AST 17 ALT 21 Alkaline Phosphatase 97 C-Reactive Protein 87.90 H Total Protein 7.2 Albumin 4.3 Globulin 2.9 Albumin/Globulin Ratio 1.5 Lipase 16 Urine Color Urine Appearance Urine pH Ur Specific [place] Urine Protein Urine Ketones Urine Blood Urine Nitrate Urine Bilirubin Urine Urobilinogen Ur Leukocyte Esterase Urine Glucose 03/22/19 03/23/19 03/23/19 20:32 05:37 05:37 WBC 11.3 H RBC 4.27 Hgb 11.5 L Hct 35 MCV 82 MCH 27 MCHC 33 RDW 15 Plt Count 218 MPV 8.6 Neut % (Auto) 74.6 Lymph % (Auto) 17.7 [place] % (Auto) 6.7 Eos % (Auto) 0.5 Baso % (Auto) 0.5 Absolute Neuts (auto) 8.5 H Absolute Lymphs (auto) 2.0 Absolute Monos (auto) 0.8 Absolute Eos (auto) 0.1 Absolute Basos (auto) 0.1 Absolute Nucleated RBC 0.0 Nucleated RBC % 0.0 Sodium 137 Potassium 4.7 Chloride 105 Carbon Dioxide 28 Anion Gap 4 BUN 8 Creatinine 0.73 Est GFR ( Amer) 99.8 Est GFR (Non-Af Amer) 82.5 BUN/Creatinine Ratio 11.0 Glucose 126 H Lactic Acid Calcium 9.4 Total Bilirubin AST ALT Alkaline Phosphatase C-Reactive Protein Total Protein Albumin Globulin Albumin/Globulin Ratio Lipase Urine Color Straw Urine Appearance Clear Urine pH 6.0 Ur Specific [place] 1.004 L Urine Protein Negative Urine Ketones Negative Urine Blood Negative Urine Nitrate Negative Urine Bilirubin Negative Urine Urobilinogen Negative Ur Leukocyte Esterase Negative Urine Glucose Negative Microbiology and Other Data: . Assess/Plan/Problems-Billing Assessment: 58 yr old female with pmh of sleep apnea, hypothyroid, asthma and diverticulitis ; who presented to ED with LLQ pain and was found to have diverticulitis. - Patient Problems (1) Diverticulitis Current Visit: No Status: Acute Comment: - 4th episode in under 2 years - Cont Cefepime and Flagyl - General Surgery consulting and plan for resection as outpatient after this episode - Advance diet to low resident per general surgery recommendation - Nausea resolved, abd pain minimally improved - Continue prn zofran, prn tylenol/toradol/morphine for pain - Leukocytosis resolved, afebrile; pain only minimally improved today (2) Chest pain Current Visit: Yes Status: Acute Code(s): R07.9 - CHEST PAIN, UNSPECIFIED SNOMED Code(s): 36891308 Comment: -resolved today (3) Cough Current Visit: Yes Status: Acute Code(s): R05 - COUGH SNOMED Code(s): 48140242 Comment: -dry cough x 1 week -cont prn veronica gray (4) Asthma Current Visit: No Status: Acute Code(s): J45.909 - UNSPECIFIED ASTHMA, UNCOMPLICATED SNOMED Code(s): 458062130 Comment: -Continue tiotropium home spiriva -No evidence of acute exacerbation, though does have dry cough -Uses ICS/LABA prn at home, would perhaps benefit from one dose today (5) VIKTOR (obstructive sleep apnea) Current Visit: Yes Status: Acute Code(s): G47.33 - OBSTRUCTIVE SLEEP APNEA ( ADULT) (PEDIATRIC) SNOMED Code(s): 92397221 Comment: -continue CPAP at night (6) Hypothyroid Current Visit: No Status: Acute Code(s): E03.9 - HYPOTHYROIDISM, UNSPECIFIED SNOMED Code(s): 49046943 Comment: - Continue home dose levothyroxine (7) DVT prophylaxis Current Visit: Yes Status: Acute Code(s): Z29.9 - ENCOUNTER FOR PROPHYLACTIC MEASURES, UNSPECIFIED SNOMED Code(s): 470984560 Comment: - SCDs and ambulation (8) Full code status Current Visit: Yes Status: Acute Code(s): Z78.9 - OTHER SPECIFIED HEALTH STATUS SNOMED Code(s): 087601177 Status and Disposition: Inpatient pending medical improvement. Anticipate d/c tomorrow.
[2019-03-26] MEDS: metroNIDAZOLE IV 500 MG/100ML* 500 MG/100 ML BAG IVPB SCH ×2 (00:35→08:01)
[2019-03-26] MEDS: Levothyroxine TAB* 75 MCG TAB PO SCH (05:53)
[2019-03-26] MEDS: SPIRIVA Respimat* (tiotropium) 2.5 mcg/inh Inhaler INH SCH (07:18)
[2019-03-26] MEDS: Famotidine TAB* 20 MG PO SCH (08:09)
[2019-03-26 11:36] VITALS: BP 113/72
--- NOTE | 2019-03-26 21:28 | DS ---
CC: Dr. Ponce; Dori Wilburn NP* DISCHARGE SUMMARY: DATE OF ADMISSION: 03/23/19 DATE OF DISCHARGE: 03/26/19 PROVIDER: LD Schaeffer. ATTENDING PHYSICIAN WHILE IN THE HOSPITAL: Dr. Lyndon Lopez* (dictated by LD Schaeffer). CONSULTING GENERAL SURGEON: Dr. Ponce. PRIMARY CARE PROVIDER: Dori Wilburn NP. PRIMARY DIAGNOSIS: Diverticulitis, recurrent. SECONDARY DIAGNOSES: 1. Sleep apnea. 2. Hypothyroidism. 3. Asthma. 4. Prior history of diverticulitis. STUDIES WHILE IN THE HOSPITAL: Abdomen and pelvis CT: Colonic diverticulosis with mild sigmoid diverticulitis, which has decreased overall since 12/27/18. There has been prior cholecystectomy and hysterectomy, fatty infiltration of the liver; otherwise, negative CT abdomen and pelvis. HISTORY OF PRESENT ILLNESS/HOSPITAL COURSE: Shanda Mendoza is a 58-year-old female with past medical history significant for prior diverticulitis, hypothyroidism, asthma, and sleep apnea who presented due to left lower quadrant abdominal pain on 03/22/19. Please see admitting history and physical written by Catia Stoll, nurse practitioner, for further information. The patient was seen in consultation by general surgeon, Dr. Ponce, due to this recurrent diverticulitis. Given that the patient has had multiple episodes in the last 2 years, surgical treatment of sigmoid resection was discussed and followup has been scheduled for after discharge as discussed below. This is the patient's fourth episode under 2 years. She had continued nausea initially during her hospital stay which required Zofran, and she was having severe left lower quadrant pain for which she was requiring opiates and morphine initially. Otherwise, her home medications were continued during her hospital stay. Finally, by day of discharge, her abdominal pain was manageable with oral medications and she was able to ambulate comfortably as she previously was not able to do so. During her hospital stay, her leukocytosis resolved and she was afebrile during the entirety of her stay. PHYSICAL EXAM ON DAY OF DISCHARGE: General: Obese white female, lying upright in hospital bed, appearing comfortable, in no acute distress. ENT: Mucous membranes moist. Neck: Supple. Lungs: Clear to auscultation throughout. Cardio: Regular rate and rhythm without murmurs, rubs, or gallops. Abdomen: Soft, nontender, nondistended. Minimal tenderness to palpation in the left lower quadrant. No rebound tenderness. Normoactive bowel sounds x4 quadrants. No guarding. Extremities: No clubbing, cyanosis, or edema, or calf tenderness. Neuro: No focal deficits. The patient is alert and oriented x3. DISCHARGE PLAN: Diet: Low-residue diet has been suggested. Activity: The patient may return to normal activity as tolerated. The patient has followup appointment with Dr. Ponce scheduled for 04/02/19 and further surgical intervention will be discussed. She is advised to return to the emergency department if she is experiencing severe abdominal pain, fever, chills, blood in her stool, or nausea to the point where she is unable to keep down liquids. Otherwise, she is advised to follow up with her primary care provider within 7 to 10 days regarding this hospitalization. DISCHARGE MEDICATIONS: 1. Flagyl 500 mg p.o. t.i.d. x7 days. 2. Ciprofloxacin 500 mg p.o. b.i.d. x7 days. 3. Oxycodone/acetaminophen 5/325 one tab p.o. q.6 hours p.r.n. for severe abdominal pain, x3-day supply. Continued home medications: 1. Symbicort 2 puffs inhaled b.i.d. p.r.n. for wheezing. 2. Synthroid 75 mcg p.o. daily. 3. Spiriva 2 puffs inhaled daily. CONDITION ON DISCHARGE: Stable. DISPOSITION: Home. TIME SPENT: Approximately 35 minutes were spent on this discharge, approximately half of this time was spent at the bedside evaluating the patient and discussing the discharge plan. LD SCHAEFFER [id number]/[facility] #: [id number] [facility]
== END 2019-03-26 11:30 | disposition home or self-care (01) | DRG 244 ==
LOC: ED 17:57 → MED 23:33
PROVIDERS: ADMIT Student in an Organized Health Care Education/Training Program; ATTEND Internal Medicine
PROC: 5A09357 Assistance with Respiratory Ventilation, Less than 24 Consecutive Hours, Continuous Positive Airway Pressure (ICD-10-PCS; principal; 2019-03-23)
DX: K57.32 Diverticulitis of large intestine without perforation or abscess without bleeding (principal); E66.9 Obesity, unspecified; G47.33 Obstructive sleep apnea (adult) (pediatric); R07.89 Other chest pain; R05 Cough; E78.00 Pure hypercholesterolemia, unspecified; E03.9 Hypothyroidism, unspecified; J45.909 Unspecified asthma, uncomplicated; Z90.49 Acquired absence of other specified parts of digestive tract; Z90.710 Acquired absence of both cervix and uterus; Z88.6 Allergy status to analgesic agent; Z88.5 Allergy status to narcotic agent; Z88.0 Allergy status to penicillin; Z82.49 Family history of ischemic heart disease and other diseases of the circulatory system; Z80.0 Family history of malignant neoplasm of digestive organs; Z80.42 Family history of malignant neoplasm of prostate; Z87.891 Personal history of nicotine dependence; Z72.89 Other problems related to lifestyle; Z68.31 Body mass index [BMI] 31.0-31.9, adult; Z85.41 Personal history of malignant neoplasm of cervix uteri; Z90.721 Acquired absence of ovaries, unilateral; Z83.3 Family history of diabetes mellitus
CPT/HCPCS: 36415; 74177; 80048; 80053; 81003; 83605; 83690; 84484; 85025; 86140; 93005; 94640; 94660; 99284; A9270-GY; J0692; J0744; J1885; J2270; J2405; J3535; Q9967

== ENCOUNTER 2019-05-25 05:34 | Inpatient (IN) | payer OTHER ==
--- NOTE | 2019-05-18 13:50 | HP ---
CC: Dori Wilburn NP at [facility] * ADMISSION HISTORY AND PHYSICAL: DATE OF ADMISSION: 05/25/19 ATTENDING SURGEON: Dr. Rosendo Ponce.* (DICTATED BY LD HOGAN) CHIEF COMPLAINT: Recurrent diverticulitis. HISTORY OF PRESENT ILLNESS: This is a 58-year-old female who has had recurrent diverticular disease. She has had a total of 4 episodes of acute diverticulitis beginning in August 2017 with most recent episode being on 08/09 a couple of days following a colonoscopy. In all episodes, hospitalization was required, but she responded to conservative treatment. The most recent episode she was treated with additional 7 days with Cipro and Flagyl after a 4-day inpatient stay. She has not experienced any complications related to these episodes. She was seen as an inpatient consult by Dr. Ponce and subsequently again on 04/02/19. At that time, Dr. Ponce discussed with her the indications for surgery, the risks, benefits, and alternatives as well as the expected perioperative course. She understands all of these issues and would like to proceed as scheduled with a laparoscopic robotic sigmoid colectomy. Her most recent colonoscopy on 03/18/19 includes removal of 2 polyps , both benign. She will complete standard mechanical bowel prep along with oral antibiotics. She will receive standard prophylactic IV antibiotics at the time of surgery. PAST MEDICAL HISTORY: Asthma, smoking history, obstructive sleep apnea (on CPAP ), hypothyroidism on replacement, sciatica. PAST SURGICAL HISTORY: Previous surgeries include right foot surgery, bilateral shoulder surgery for rotator cuff repair, bilateral carpal tunnel release, right knee arthroscopy, x3 via low transverse incision and hysterectomy for benign disease via lower midline vertical incision (her hysterectomy was completed in 2 stages). She did undergo a separate open surgery for what sounds like lysis of adhesions with incidental appendectomy. She is also status post laparoscopic cholecystectomy. Other than fever, she has not experienced any postoperative surgical or anesthesia complications. CURRENT MEDICATIONS: 1. Levothyroxine 75 mcg once daily. 2. Spiriva 2.5 mcg 2 puffs b.i.d. 3. Symbicort 2 puffs b.i.d. p.r.n. (does not frequently use). 4. She is finishing a Medrol-Dosepak (methylprednisolone). Her last dose being 05/19/19 for a flareup of sciatica. ALLERGIES: ASPIRIN (GI side effects only), HYDROCODONE (hives), (patient has tolerated oxycodone and tramadol), PENICILLIN (GI side effects only). FAMILY HISTORY: Positive for colorectal cancer in her brother who is diagnosed in his late 40s. It is negative for family history of anesthesia problems, bleeding, or clotting disorder. SOCIAL HISTORY: The patient is . She has 2 children. She is not currently working. Recently completed her master's degree. She is a former smoker of up to one half pack per day for 15 to 20 years, quit in 2017. She drinks alcohol rarely and denies use of any other recreational drugs. REVIEW OF SYSTEMS: General: No recent constitutional symptoms or acute illness other than described in the HPI including her most recent admission. Weight has been stable. HEENT: Early cataracts. No other problems reported. She does have a partial upper denture. Cardiovascular: No history of hypertension, SD, or angina (she did have chest pain during her last admission, but states that her workup for any cardiac etiology was negative). No history of heart murmur. Respiratory: As above without recent exacerbations. She is instructed to bring her CPAP to the hospital. GI: As above per HPI. No upper GI symptoms. : No problems reported. 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 Most recent breast exam within the past year and she is due for her annual mammogram with no interval problems reported. Endocrine: No diabetes. She is on thyroid replacement for hypothyroidism. Musculoskeletal: History of sciatica with recent flare, which is improved. PHYSICAL EXAMINATION GENERAL: Well-nourished, mildly obese female in no acute distress. VITAL SIGNS: Height 5 feet 3 inches, weight 171 pounds, temperature 97.7, blood pressure 118/64, pulse 60, respirations 12. HEENT: Pupils are equal, round, and reactive. EOMs intact. No conjunctival pallor. Oropharynx: She has partial upper denture. Remaining teeth appeared to be in good repair. No intraoral lesions. Mucous membranes moist. NECK: No lymphadenopathy, thyromegaly, or masses. LUNGS: Clear to auscultation. No rales or wheezes. HEART: Regular rate and rhythm. No murmur appreciated. BREASTS: No examined. ABDOMEN: Multiple well-healed surgical scars including lower midline and Pfannenstiel incisions. Abdomen is soft, nontender to palpation without palpable masses or organomegaly. GENITALIA: Not done. RECTAL: Not done. BACK: No spinous process or CVA tenderness. EXTREMITIES: No edema (she has compression stockings in place; she reports no skin changes or ulcerations). NEUROLOGICAL: Grossly intact. SKIN: Warm and dry. No suspicious rashes or lesions noted. IMPRESSION: Recurrent diverticulitis. PLAN: Laparoscopic robotic sigmoid colectomy. LD HOGAN [id number]/CPS #: [id number]
[~2019-05-25 05:34] MED LIST: Buffered Lidocaine 1% SYRIN* 1 ML/SYRINGE INTRADERM ONE
--- OUTSIDE RECORDS SUMMARY | 2019-05-25 05:37 | XMS REPORT | Continuity of Care Document ---
:1960 External Reference #:[id number] Author Name LD Briceno (transmitted by agent of provider Dariela Lawton) Address [address] [place] [address] [place] [address] Care Team Providers Name Role Phone [facility] - Care Team Information Grocery Bagger [phone] Rehabilitation Jimenez Martinez DO - Emergency Medicine Care Team Information Grocery Bagger Blake Stout MD - Care Team Information Grocery Bagger [phone] Otolaryngology Dori Wilburn NP - Family Care Team Information Grocery Bagger [phone] Problems Active Problems Provider Date Asthma without status asthmaticus Anila De La Cruz MD Onset: 10/27/2015 Disturbance in sleep behavior Anila De La Cruz MD Onset: 10/27/2015 Obesity Anila De La Cruz MD Onset: 10/27/2015 Simple chronic bronchitis Anila De La Cruz MD Onset: 10/27/2015 Tobacco user Anila De La Cruz MD Onset: 12/27/2015 Obstructive sleep apnea syndrome Anila De La Cruz MD Onset: 03/20/2016 Femoral neuropathy Haim Abebe M.D. Onset: 06/19/2017 Social History Type Date Description Comments Sex Unknown ETOH Use Occasionally consumes alcohol Recreational Drug Use Denies Drug Use Tobacco Use Start: Unknown End: Patient is a former Quit in January 2017, Unknown smoker smoked 1 pack every 2 days for 25 years Smoking Status Reviewed: 05/18/19 Patient is a former Quit in January 2017, smoker smoked 1 pack every 2 days for 25 years Exercise Type/Frequency Exercises sporadically Walking Allergies, Adverse Reactions, Alerts Active Allergies Reaction Severity Comments Date Penicillin GI Upset 07/25/2015 Codeine Hives 07/25/2015 Aspirin Upsets stomach 03/26/2019 Inactive Allergies Penicillin 12/06/2016 Codeine 12/06/2016 Medications Active Medications SIG Qnty Indications Ordering Date Provider Flagyl 1 tab by mouth at 3tabs [facility] 05/18/2019 500mg Tablets 1:00 pm, 2:00 pm MD Dejuan and 11:00 pm the day before surgery Neomycin Sulfate 2 tabs by mouth at 6tabs [facility] 05/18/2019 500mg 1:00 pm, 2:00 pm, MD Dejuan Tablets and 11:00 pm the day before surgery Suprep Bowel Prep Kit take according to 354ml [facility] 05/18/2019 the instructions MD Dejuan 17.5-3.13-1.6GM/177ML you received, the Solution day before surgery Humidifier Pls provide pt J45.20 [facility] 06/11/2017 2Gallon Misc with humidifoer to MD Jono be used at night Spiriva Respimat 2 puffs every day 4units [facility] 06/11/2017 2.5mcg/Act MD Jono Aerosol Symbicort 2 puff twice a day 20.7gm J45.909 [facility] 12/27/2015 80-4.5mcg/Act as needed MD Jono Aerosol Levothyroxine Sodium 1 by mouth every Unknown 75mcg day Tablets Ibuprofen 200 1 twice a day as Unknown 200mg Tablets needed Cpap at night Unknown Methylprednisolone FPD Unknown 4mg TBPK Immunizations CPT Code Status Date Vaccine Lot # [id number] Given 10/27/2015 Fluvirin Im 3Yrs And Older Vital Signs Date Vital Result Comment 05/18/2019 10:29am Height 63 inches 5'3" Weight 170.00 lb Heart Rate 60 /min BP Systolic Sitting 118 mmHg BP Diastolic Sitting 64 mmHg Respiratory Rate 12 /min Body Temperature 97.7 F BMI (Body Mass Index) 30.1 kg/m2 04/03/2019 8:47am Height 63 inches 5'3" Weight 170.00 lb Heart Rate 69 /min BP Systolic Sitting 110 mmHg BP Diastolic Sitting 70 mmHg O2 % BldC Oximetry 96 % BMI (Body Mass Index) 30.1 kg/m2 Results Description No Information Available Procedures Date Code Description Status 03/24/2019 05021 EKG, Interpretation Only Completed 03/18/2019 15473038 Colonoscopy Completed 02/23/2019 07529 Diffusing Capacity Completed 02/23/2019 72386 Plethysmography Determination Lung Volumes & Per Airway Completed Resist 02/23/2019 89626 Pulmonary Function><Bronchodil Completed 02/24/2015 87616340 Colonoscopy Completed Medical Devices Description No Information Available Encounters Type Date Location Provider Dx Diagnosis Office Visit 04/03/2019 Pulmonology And Anila De La Cruz, Z01.811 Encounter for 9:00a [facility] preprocedural [place] respiratory examination J45.909 Unspecified asthma, uncomplicated G47.33 Obstructive sleep apnea (adult) (pediatric) Office Visit 04/02/2019 10:30a Surgical Rosendo Dey K57.32 [facility] int [facility] Ponce MD w/o perforation or abscess w/o bleeding Office Visit 03/26/2019 12:46p [facility] K57.32 Dvtrcli of lg int Assoc,pc Mari, PA-C w/o perforation Hospitalists or abscess w/o bleeding Office Visit 03/25/2019 12:46p [facility] K57.32 Dvtrcli of lg int Assoc,ana Abebe'caity, PA-C w/o perforation Hospitalists or abscess w/o bleeding J45.909 Unspecified asthma, uncomplicated Office Visit 03/24/2019 [facility] K57.32 Dvtrcli of lg int 12:45p Assoc,pc Mis'caity, PA-C w/o perforation Hospitalists or abscess w/o bleeding R07.9 Chest pain, unspecified J45.909 Unspecified asthma, uncomplicated Office Visit 03/24/2019 Vj Dey K57.30 [facility] of lg 7:00a [facility] Ponce MD int w/o perforation or abscess w/o bleeding Office Visit 03/23/2019 [facility] K57.32 Dvtrcli of lg int 12:45p Assoc,pc Shortle, SURGICAL PHYSICIAN ASSISTANT w/o perforation Hospitalists or abscess w/o bleeding R11.0 Nausea E03.9 Hypothyroidism, unspecified Office Visit 03/23/2019 Vj Dey K57.30 Dvrtclos of lg 7:00a [facility] MD Kris int w/o perforation or abscess w/o bleeding Office Visit 03/22/2019 [facility] Catia K57.32 Dvtrcli of lg int 12:45p Assoc,pc Jerman, SURGICAL PHYSICIAN ASSISTANT w/o perforation Hospitalists or abscess w/o bleeding Office Visit 12/29/2018 [facility] Juan Lopez, K57.32 Dvtrcli of lg int 11:08a Assoc,pc M.Leslye w/o perforation Hospitalists or abscess w/o bleeding Office Visit 12/29/2018 Surgical Megan Contreras K57.32 Dvtrcli of lg int 7:00a [facility] Gian, SURGICAL PHYSICIAN ASSISTANT w/o perforation or abscess w/o bleeding Office Visit 12/28/2018 [facility] Imelda Mansfield MD K57.32 Dvtrcli of lg int 11:08a Assoc,pc w/o perforation Hospitalists or abscess w/o bleeding Office Visit 12/28/2018 Surgical Jorge Luevano K57.32 Dvtrcli of lg int 7:00a [facility] JULIAN VALENCIA w/o perforation or abscess w/o bleeding Assessments Date Code Description Provider 05/18/2019 K57.32 Diverticulitis of large intestine LD Briceno without perforation or abscess without bleeding 05/18/2019 Z01.818 Encounter for other preprocedural LD Briceno examination 04/07/2019 K57.32 Diverticulitis of large intestine Rosendo Ponce MD without perforation or abscess without bleeding 04/03/2019 Z01.811 Encounter for preprocedural respiratory Anila De La Cruz MD examination 04/03/2019 J45.909 Unspecified asthma, uncomplicated Anila De La Cruz MD 04/03/2019 G47.33 Obstructive sleep apnea (adult) Anila De La Cruz MD (pediatric) 04/02/2019 K57.32 Diverticulitis of large intestine Rosendo Ponce MD without perforation or abscess without bleeding 03/26/2019 K57.32 Diverticulitis of large intestine Kayla Guerra PA-C without perforation or abscess without bleeding 03/25/2019 K57.32 Diverticulitis of large intestine Kayla O'caity, PA-C without perforation or abscess without bleeding 03/25/2019 J45.909 Unspecified asthma, uncomplicated Kayla O'caity, PA-C 03/24/2019 R00.1 Bradycardia, unspecified Niko Argueta M.D. 03/24/2019 K57.32 Diverticulitis of large intestine Kayla O'caity, PA-C without perforation or abscess without bleeding 03/24/2019 R07.9 Chest pain, unspecified Kayla O'caity, PA-C 03/24/2019 J45.909 Unspecified asthma, uncomplicated Kayla O'caity, PA-C 03/24/2019 K57.30 Diverticulosis of large intestine Rosendo Ponce MD without perforation or abscess without bleeding 03/23/2019 K57.32 Diverticulitis of large intestine Zandra Shortshona, SURGICAL PHYSICIAN ASSISTANT without perforation or abscess without bleeding 03/23/2019 R11.0 Nausea Zandra Shortle, SURGICAL PHYSICIAN ASSISTANT 03/23/2019 K57.30 Diverticulosis of large intestine Rosendo Ponce MD without perforation or abscess without bleeding 03/23/2019 E03.9 Hypothyroidism, unspecified Zandra Shortle, SURGICAL PHYSICIAN ASSISTANT 03/22/2019 K57.32 Diverticulitis of large intestine Catia Jerman, SURGICAL PHYSICIAN ASSISTANT without perforation or abscess without bleeding 02/23/2019 J45.20 Mild intermittent asthma, uncomplicated Anila De La Cruz MD 12/29/2018 K57.32 Dvtrcli of lg int w/o perforation or Juan Lopez M.D. abscess w/o bleeding 12/29/2018 K57.32 Dvtrcli of lg int w/o perforation or Megan Springer NP abscess w/o bleeding 12/28/2018 K57.32 Dvtrcli of lg int w/o perforation or Imelda Mansfield MD abscess w/o bleeding 12/28/2018 K57.32 Dvtrcli of lg int w/o perforation or Jorge Luevano MD, FACS abscess w/o bleeding Plan of Treatment Future Appointment(s):05/25/2019 10:15 am - Ros[facility]once MD at [facility]10/05/2019 9:00 am - Anila De La Cruz MD at [facility]05/18/2019 - Raul Fabian, PAK57.32 Diverticulitis of large intestine without perforation or abscess without gkpuviskM77.818 Encounter for other preprocedural examination Functional Status Description No Information Available Mental Status Description No Information Available Referrals Refer to Dr Reason for Referral Status Appt Date Rosendo Ponce MD FOR 05/25/19 ---[id number]--- INPATIENT Created [address] [place] [address] [phone]
--- OUTSIDE RECORDS SUMMARY | 2019-05-25 05:37 | XMS REPORT | Continuity of Care Document ---
:1960 External Reference #:[id number] Author Name Rosendo Ponce MD (transmitted by agent of provider Josseline Hamilton) Address [address] [place] [address] Care Team Providers Name Role Phone [facility] - Care Team Information Char Belt Operator [phone] Rehabilitation Jimenez Martinez DO - Emergency Medicine Care Team Information Char Belt Operator Blake Stout MD - Care Team Information Char Belt Operator [phone] Otolaryngology Dori Wilburn NP - Family Care Team Information Char Belt Operator [phone] Problems Active Problems Provider Date Asthma without [...] days for 25 years Smoking Status Reviewed: 04/02/19 Patient is a former Quit in January 2017, smoker smoked 1 pack every 2 days for 25 years Exercise Type/Frequency Exercises sporadically Walking Allergies, Adverse Reactions, Alerts Active Allergies Reaction Severity Comments Date Penicillin GI Upset 07/25/2015 Codeine Hives 07/25/2015 Aspirin Upsets stomach 03/26/2019 Inactive Allergies Penicillin 12/06/2016 Codeine 12/06/2016 Medications Active Medications SIG Qnty Indications Ordering Date Provider Humidifier Pls provide pt J45.20 Anila De La Cruz, 06/11/2017 2Gallon Misc with humidifoer to MD be used at night Spiriva Respimat 1 puff every day 4units Anila De La Cruz, 06/11/2017 2.5mcg/Act Aerosol Symbicort 2 puff twice a day 20.7gm J45.909 Anila De La Cruz, 12/27/2015 80-4.5mcg/Act Aerosol Levothyroxine Sodium 1 by mouth every Unknown day 75mcg Tablets Ibuprofen 200 1 twice a day as Unknown 200mg needed Tablets Cpap at night Unknown Immunizations CPT Code Status Date Vaccine Lot # [id number] Given 10/27/2015 Fluvirin Im 3Yrs And Older Vital Signs Date Vital Result Comment 04/02/2019 10:43am Height 63 inches 5'3" Weight 170.00 lb Heart Rate 72 /min BP Systolic Sitting 128 mmHg BP Diastolic Sitting 82 mmHg Respiratory Rate 16 /min Body Temperature 97.3 F BMI (Body Mass Index) 30.1 kg/m2 09/15/2018 2:49pm Height 63 inches 5'3" Weight 171.00 lb Heart Rate 60 /min BP Systolic Sitting 110 mmHg Lue regular cuff BP Diastolic Sitting 70 mmHg Lue regular cuff Respiratory Rate 12 /min O2 % BldC Oximetry 94 % BMI (Body Mass Index) 30.3 kg/m2 Results Description No Information Available Procedures Date Code Description Status 02/23/2019 81549 Diffusing Capacity Completed 02/23/2019 81710 Plethysmography Determination Lung Volumes & Per Airway Completed Resist 02/23/2019 88093 Pulmonary Function><Bronchodil Completed 02/24/2015 32391301 Colonoscopy Completed Medical Devices Description No Information Available Encounters Type Date Location Provider Dx Diagnosis Office Visit 03/24/2019 [facility] Ros[facility] Dey K57.30 [facility]rtclos of lg int 7:00a [facility] Ponce MD w/o perforation or abscess w/o bleeding Office Visit 03/23/2019 [facility] Rosendo Dey K57.30 Dvrtclos of lg int 7:00a [facility] Ponce MD w/o perforation or abscess w/o bleeding Office Visit 12/29/2018 [facility] Juan Lopez, K57.32 Dvtrcli of lg int 11:08a Assoc,pc M.D. w/o perforation or Hospitalists abscess w/o bleeding Office Visit 12/29/2018 [facility] Megan Contreras K57.32 Dvtrcli of lg int 7:00a Of Hand Almond Blancher Gian, GAS WELDER w/o perforation or abscess w/o bleeding Office Visit 12/28/2018 [facility] Imelda Mansfield MD K57.32 Dvtrcli of lg int 11:08a Assoc,pc w/o perforation or Hospitalists abscess w/o bleeding Office Visit 12/28/2018 [facility] Jorge Luevano, K57.32 Dvtrcli of lg int 7:00a [facility] VALENCIA FACS w/o perforation or abscess w/o bleeding Assessments Date Code Description Provider 03/25/2019 K57.32 Diverticulitis of large intestine Kayla O'caity, PA-C without perforation or abscess without bleeding 03/25/2019 J45.909 Unspecified asthma, uncomplicated Kayla O'caity, PA-C 03/24/2019 K57.32 Diverticulitis of large intestine Kayla O'caity, PA-C without perforation or abscess without bleeding 03/24/2019 R07.9 Chest pain, unspecified Kayla O'caity, PA-C 03/24/2019 J45.909 Unspecified asthma, uncomplicated Kayla O'caity, PA-C 03/24/2019 K57.30 Diverticulosis of large intestine Rosendo Ponce MD without perforation or abscess without bleeding 03/23/2019 K57.32 Diverticulitis of large intestine Zandra Celis, GAS WELDER without perforation or abscess without bleeding 03/23/2019 R11.0 Nausea Zandra Celis, GAS WELDER 03/23/2019 K57.30 Diverticulosis of large intestine Rosendo Ponce MD without perforation or abscess without bleeding 03/23/2019 E03.9 Hypothyroidism, unspecified Zandra Celis, GAS WELDER 03/22/2019 K57.32 Diverticulitis of large intestine Catia Stoll NP without perforation or abscess without bleeding 02/23/2019 [...] abscess w/o bleeding Plan of Treatment Future Appointment(s):04/03/2019 9:00 am - Anila De La Cruz MD at [facility]09/15/2018 - Anila De La Cruz MDJ45.20 Mild intermittent asthma, uncomplicatedFollow up:6 months, PFTs feeeyP02.33 Obstructive sleep apnea (adult) (pediatric)Z68.30 Body mass index (BMI) 30.0- 30.9, adult Functional Status Description No Information Available Mental Status Description No Information Available Referrals Description No Information Available
--- OUTSIDE RECORDS SUMMARY | 2019-05-25 05:37 | XMS REPORT | Continuity of Care Document ---
:1960 External Reference #:[id number] Author Name Anila De La Cruz MD (transmitted by agent of provider Maya Faust) Address [address], [address] [place] [address] Care Team Providers Name Role Phone [facility] - Care Team Information Remote Sensing Technologist [phone] Rehabilitation Jimenez Martinez DO - Emergency Medicine Care Team Information Remote Sensing Technologist Blake Stout MD - Care Team Information Remote Sensing Technologist [phone] Otolaryngology Dori Wilburn NP - Family Care Team Information Remote Sensing Technologist [phone] Problems Active Problems Provider Date Asthma without [...] days for 25 years Smoking Status Reviewed: 04/03/19 Patient is a former Quit in January [...] J45.909 Anila De La Cruz, 12/27/2015 80-4.5mcg/Act MD Aerosol Levothyroxine Sodium 1 by mouth every Unknown day 75mcg Tablets Ibuprofen 200 1 twice a day as Unknown 200mg needed Tablets Cpap at night Unknown Immunizations CPT Code Status Date Vaccine Lot # [id number] Given 10/27/2015 Fluvirin Im 3Yrs And Older Vital Signs Date Vital Result Comment 04/03/2019 8:47am Height 63 inches 5'3" Weight 170.00 lb Heart Rate 69 /min BP Systolic Sitting 110 mmHg BP Diastolic Sitting 70 mmHg O2 % BldC Oximetry 96 % BMI (Body Mass Index) 30.1 kg/m2 04/02/2019 10:43am Height 63 inches 5'3" Weight 170.00 lb Heart Rate 72 /min BP Systolic Sitting 128 mmHg BP Diastolic Sitting 82 mmHg Respiratory Rate 16 /min Body Temperature 97.3 F BMI (Body Mass Index) 30.1 kg/m2 Results Description No Information Available Procedures Date Code Description Status 02/23/2019 65084 Diffusing Capacity Completed 02/23/2019 65794 Plethysmography Determination Lung Volumes & Per Airway Completed Resist 02/23/2019 48076 Pulmonary Function><Bronchodil Completed 02/24/2015 [id number] Colonoscopy Completed Medical Devices Description No Information [...] or abscess w/o bleeding Office Visit 12/29/2018 [facility] Juan Lopez, K57.32 Dvtrcli of lg int 11:08a Assoc,pc M.D. w/o perforation or Hospitalists abscess w/o bleeding Office Visit 12/29/2018 [facility] Megan Contreras K57.32 Dvtrcli of lg int 7:00a Of Educational Audiologist Eckenrode, DIRECTOR OF SOFTWARE ENGINEERING w/o perforation or abscess w/o bleeding Office Visit 12/28/2018 [facility] Imelda Mansfield MD K57.32 Dvtrcli of lg int 11:08a Assoc,pc w/o perforation or Hospitalists abscess w/o bleeding Office Visit 12/28/2018 [facility] Jorge Luevano, K57.32 Dvtrcli of lg int 7:00a Of Helder VALENCIA FACS w/o perforation or abscess w/o bleeding Assessments Date Code Description Provider 04/03/2019 Z01.811 Encounter for preprocedural respiratory Anila De La Cruz MD examination 04/03/2019 J45.909 Unspecified asthma, uncomplicated Anila De La Cruz MD 04/03/2019 G47.33 Obstructive sleep apnea (adult) Anila De La Cruz MD (pediatric) 04/02/2019 K57.32 Diverticulitis of large intestine Rosendo Ponce MD without perforation or abscess without bleeding 03/25/2019 [...] 03/23/2019 K57.32 Diverticulitis of large intestine Zandra Celis NP without perforation or abscess without bleeding 03/23/2019 R11.0 Nausea Zandra Celis, DIRECTOR OF SOFTWARE ENGINEERING 03/23/2019 K57.30 Diverticulosis of large intestine Rosendo Ponce MD without perforation or abscess without bleeding 03/23/2019 E03.9 Hypothyroidism, unspecified Zandra Celis, DIRECTOR OF SOFTWARE ENGINEERING 03/22/2019 K57.32 Diverticulitis of large intestine Catia Stoll, DIRECTOR OF SOFTWARE ENGINEERING without perforation or abscess without bleeding 02/23/2019 [...] abscess w/o bleeding Plan of Treatment Future Appointment(s):10/05/2019 9:00 am - Anila De La Cruz MD at [facility]04/03/2019 - Anila De La Cruz MDZ01.811 Encounter for preprocedural respiratory examinationFollow up:6 dzfxykX76.909 Unspecified asthma, dpcpksaotumoqI63.33 Obstructive sleep apnea (adult) (pediatric) Functional Status Description No Information Available Mental Status Description No Information Available Referrals Description No Information Available
--- OUTSIDE RECORDS SUMMARY | 2019-05-25 05:37 | XMS REPORT | Continuity of Care Document ---
:1960 External Reference #:[id number] Author Name Veronica Traylor MD Address [address] [place] [id number] Care Team Providers Name Role Phone Heather Pichardo MD Care Team Information Radiocommunications Technician [phone] Problems Active Problems Provider Date Flatulence, eructation and gas pain Mary Vizcaino PA-C Onset: 2018 Left lower quadrant pain Mary Vizcaino PA-C Onset: 11/05/2018 Epigastric pain Mary Vizcaino PA-C Onset: 07/10/2018 Hemorrhage of rectum and anus Mary Vizcaino PA-C Onset: 10/09/2017 Diverticulitis of colon Mary Vizcaino PA-C Onset: 10/09/2017 Asthma without status asthmaticus Mary Vizcaino PA-C Onset: 2017 Social History Type Date Description Comments Sex Unknown Tobacco Use Start: Unknown Patient has never smoked Smoking Status Reviewed: 01/19/19 Patient has never smoked Allergies, Adverse Reactions, Alerts Active Allergies Reaction Severity Comments Date Penicillin Rash Mild 07/12/2015 Aspirin 12/01/2014 Codeine 12/01/2014 Medications Active Medications SIG Qnty Indications Ordering Date Provider Levothyroxine Sodium Unknown 75mcg Tablets Fluticasone Propionate [place] 2 sprays Unknown twice a day by 50mcg/Act Suspension intranasal route for 30 days. Spiriva Handihaler Unknown 18mcg Capsules Symbicort 2 puff twice a day Unknown 80-4.5mcg/Act Aerosol History Medications Peg 3350/Electrolytes use as 4000ml K57.32 Veronica 01/19/2019 - 240gm directed MD Kymberly 02/11/2019 Solution Rec Immunizations CPT Code Status Date Vaccine Lot # [id number] Given 04/15/2015 Influenza Virus Vaccine, Quadrivalent, Split, Preservative Free Vital Signs Date Vital Result Comment 01/19/2019 11:35am Height 63 inches 5'3" Weight 168.00 lb BP Systolic 113 mmHg BP Diastolic 72 mmHg Heart Rate 71 /min BMI (Body Mass Index) 29.8 kg/m2 11/05/2018 1:02pm Height 63 inches 5'3" Weight 174.00 lb BP Systolic 134 mmHg BP Diastolic 81 mmHg Heart Rate 63 /min BMI (Body Mass Index) 30.8 kg/m2 Results Test Date Facility Test Result H/L Range Note Laboratory test 03/18/2019 [facility] [place] SEE RESULT 1 finding Pathology Order BELOW BMP W/O Egfr(!) 12/29/2018 [facility] Sodium(!) <pending> Potassium(!) <pending> Chloride Serum/Plasma(!) <pending> Carbon Dioxide Ser/Plasm(!) <pending> BUN - Urea Nitrogen(!) <pending> Calcium Ser/Plasma Mass/Vol(!) <pending> Creatinine Serum Mass/Vol(!) <pending> Glucose Serum(!) <pending> CBC W/Auto 12/29/2018 [facility] White Blood <pending> Differential(!) Count Ser Auto CNT RBC Red Blood Count <pending> Hemoglobin Blood <pending> Hematocrit <pending> MCV (Corpuscular Volume) <pending> MCH (Corpuscular Hemoglobin) <pending> MCHC (Corpuscular Hemog Conc) <pending> RDW <pending> Platelet Count Blood Auto CNT <pending> MPV <pending> Lymph% <pending> [place]% <pending> Neutrophil % <pending> Absolute Lymphocytes <pending> Absolute Monocytes <pending> Absolute Neutrophils <pending> Laboratory test 12/28/2018 [facility] TSH Thyroid Stim <pending> finding Hormone(!) Laboratory test 12/28/2018 [facility] Lactic Acid Ser/Plas <pending> finding Mass/Vol Ua Microscopic(!) 12/27/2018 [facility] Ua WBC <pending> Ua RBC <pending> Ua Epithelial Cells <pending> Ua Crystals <pending> Ua Bacteria <pending> Ua Mucous <pending> Ua Amorphous <pending> Ua Yeast <pending> Ua Casts <pending> Laboratory test 12/27/2018 [facility] Lipase Ser/Plas (!) <pending> finding CMP And Lipid 12/27/2018 [facility] Misc Other Test <pending> Laboratory test 12/27/2018 [facility] C-Reative Protein <pending> finding CBC W/Auto 12/27/2018 [facility] White Blood Count <pending> Differential(!) Ser Auto CNT RBC Red Blood Count <pending> Hemoglobin Blood <pending> Hematocrit <pending> MCV (Corpuscular Volume) <pending> MCH (Corpuscular Hemoglobin) <pending> MCHC (Corpuscular Hemog Conc) <pending> RDW <pending> Platelet Count Blood Auto CNT <pending> MPV <pending> Lymph% <pending> [place]% <pending> Neutrophil % <pending> Absolute Lymphocytes <pending> Absolute Monocytes <pending> Absolute Neutrophils <pending> Xray 12/27/2018 [facility] Rad[place] CT, Abd & Pelvis W/O <pending> Contrast Lipid Profile 11/05/2018 [facility] Triglycerides 123 mg/dL 2 (Trig/Chol/HDL) Cholesterol 201 mg/dL 3 HDL Cholesterol 52.0 mg/dL 4 LDL Cholesterol 124 mg/dL 5 CBC Auto Diff 11/05/2018 [facility] White Blood Count 8.6 10^3/uL Normal 3.5- 10.8 Red Blood Count 4.84 10^6/uL Normal 3.70-4.87 Hemoglobin 13.3 g/dL Normal 12.0-16.0 Hematocrit 41 % Normal 33-41 Mean Corpuscular Volume 85 fL Normal 80-97 Mean Corpuscular Hemoglobin 27 pg Normal 27-31 Mean Corpuscular HGB Conc 32 g/dL Normal 31-36 Red Cell Distribution Width 14 % Normal 10.5-15 Platelet Count 235 10^3/uL Normal 150-450 Mean Platelet Volume 9.5 fL Normal 7.4-10.4 Abs Neutrophils 4.6 10^3/uL Normal 1.5-7.7 Abs Lymphocytes 2.8 10^3/uL Normal 1.0-4.8 Abs Monocytes 0.7 10^3/uL Normal 0-0.8 Abs Eosinophils 0.3 10^3/uL Normal 0-0.6 Abs Basophils 0.1 10^3/uL Normal 0-0.2 Abs Nucleated RBC 0 10^3/uL Granulocyte % 53.9 % Lymphocyte % 33.0 % Monocyte % 8.4 % Eosinophil % 3.9 % Basophil % 0.8 % Nucleated Red Blood Cells % 0 Laboratory test finding 11/05/2018 [facility] Hemoglobin A1c (Glyco 5.9 % High 4.0-5.6 6 HGB) Hepatitis C Antibody 11/05/2018 [facility] HCV Index 0.1 Index Hepatitis C Antibody Nonreactive Nonreactive HIV 1/2 AB 11/05/2018 [facility] HIV 1 2 Antibody Nonreactive Nonreactive 7 Evaluation Laboratory test 11/05/2018 [facility] Hepatitis B Core Negative Negative 8 finding AB Total Comp Metabolic 11/05/2018 [facility] Sodium 138 mmol/L Normal 135-145 Panel Potassium 4.2 mmol/L Normal 3.5-5.0 Chloride 105 mmol/L Normal 101-111 Co2 Carbon Dioxide 25 mmol/L Normal 22-32 Anion Gap 8 mmol/L Normal 2-11 Calcium 9.8 mg/dL Normal 8.6-10.3 Albumin 4.5 g/dL Normal 3.2-5.2 Total Bilirubin 0.60 mg/dL Normal 0.2-1.0 Glucose 90 mg/dL Normal 70-100 Blood Urea Nitrogen 9 mg/dL Normal 6-24 Creatinine 0.68 mg/dL Normal 0.51-0.95 BUN/Creatinine Ratio 13.2 Normal 8-20 Total Protein 7.3 g/dL Normal 6.4-8.9 Globulin 2.8 g/dL Normal 2-4 Albumin/Globulin Ratio 1.6 Normal 1-3 Alkaline Phosphatase 102 U/L Normal 34-104 Alt 32 U/L Normal 7-52 Ast 21 U/L Normal 13-39 Egfr Non- 89.5 >60 Egfr 108.3 >60 9 Laboratory test finding 11/05/2018 [facility] Amylase 44 U/L Normal 29-103 10 Lipase 37 U/L Normal 11.0-82.0 11 C Reactive Protein 15.36 mg/L High <8.01 12 Lipid Profile (Trig/Chol/HDL) 11/05/2018 [facility] Triglycerides 123 mg/dL 13 Cholesterol 201 mg/dL 14 HDL Cholesterol 52.0 mg/dL 15 LDL Cholesterol 124 mg/dL 16 CBC W/Auto 11/05/2018 [facility] White 8.4 3/UL 4.8- 10.8 Differential(!) [address] [facility] [place] [address] Count Ser [phone] Auto CNT RBC Red Blood Count 4.59 X106/UL 4.20-6.20 Hemoglobin Blood 13.3 g/dL 12.0-18.0 Hematocrit 41.0 % 35-52 MCV (Corpuscular Volume) 89.4 FL 79-97 MCH (Corpuscular Hemoglobin) 29.1 pg 27-31 MCHC (Corpuscular Hemog Conc) 32.5 g/dL 32.0-36.0 RDW 14.8 % 10.5-15.0 Platelet Count Blood Auto CNT 210 X103/UL 150-450 MPV 8.5 FL 7.4-10.4 Lymph% 33.4 % 20.0-45.0 [place]% 7.0 % 1.0-9.0 Neutrophil % 59.6 % 38.0-83.0 Absolute Lymphocytes 2.8 X103/UL 1.0-4.8 Absolute Monocytes 0.6 X103/UL 0.0-0.8 Absolute Neutrophils 5.0 X103/UL 1.5-7.7 Laboratory test 11/05/2018 [facility] Sedimentation 26 MM High 0-20 [address] Rate(!) [place] [address] [phone] Laboratory test 11/05/2018 [facility] C Reactive Protein 15.36 High <8.01 17 finding mg/L Amylase 44 U/L Normal 29-103 18 Lipase 37 U/L Normal 11.0-82.0 19 Comp Metabolic Panel 11/05/2018 [facility] Sodium 138 mmol/L Normal 135-145 Potassium 4.2 mmol/L Normal 3.5-5.0 Chloride 105 mmol/L Normal 101-111 Co2 Carbon Dioxide 25 mmol/L Normal 22-32 Anion Gap 8 mmol/L Normal 2-11 Calcium 9.8 mg/dL Normal 8.6-10.3 Albumin 4.5 g/dL Normal 3.2-5.2 Total Bilirubin 0.60 mg/dL Normal 0.2-1.0 Glucose 90 mg/dL Normal 70-100 Blood Urea Nitrogen 9 mg/dL Normal 6-24 Creatinine 0.68 mg/dL Normal 0.51-0.95 BUN/Creatinine Ratio 13.2 Normal 8-20 Total Protein 7.3 g/dL Normal 6.4-8.9 Globulin 2.8 g/dL Normal 2-4 Albumin/Globulin Ratio 1.6 Normal 1-3 Alkaline Phosphatase 102 U/L Normal 34-104 Alt 32 U/L Normal 7-52 Ast 21 U/L Normal 13-39 Egfr Non- 89.5 >60 Egfr 108.3 >60 20 1 SEE RESULT BELOW Name: AMADOU RODAS : [address]: Veronica Traylor MD Acct: [id number] Unit: [id number] AGE: 58 Location: ENDO Re03/18/19 SEX: F Status: DEP REF SPEC: [id number] ALEJA: 03/18/[address] [facility] [address]: Veronica Andersen MD REQ: [id number] RECD: 03/18/191250 STATUS: TAMIKO GONZALES DR: Dori Wilburn 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 Cecal mucosa, biopsy: -- Focal hyperplastic change. -- No evidence of acute or chronic inflammatory bowel process identified. -- No adenomatous changes identified. 2. Colon, transverse, biopsy: -- Tubular adenoma. -- No high grade dysplasia or malignancy. 3. Colon, sigmoid, biopsy: -- Hyperplastic polyp. POST-OPERATIVE DIAGNOSIS Colonoscopy: to cecum; unknown polyp ??? biopsy; transverse 3-4 mm jumbo; very difficult sigmoid 3 mm jumbo; sigmoid diverticulosis; hypertrophic adenoma polyp; cold snare GROSS DESCRIPTION 1. The specimen is received in formalin labeled, Abnormal Cecal Mucosa Biopsy, and consists of a 0.4 x 0.4 x 0.1 cm ortiz-yellow irregular soft tissue fragment which is submitted entirely in one cassette. 2. The specimen is received in formalin labeled, Transverse Colon Polyp Biopsy, and consists of two ortiz-yellow irregular to polypoid soft tissue fragments measuring 0.2 x 0.1 x 0.1 cm and 0.3 x 0.2 x 0.2 cm which are submitted entirely in one cassette. 3. The specimen is received in formalin labeled, Sigmoid Polyp Biopsy, and consists of a CONTINUED ON NEXT PAGE DEPARTMENT OF PATHOLOGY, [address] [place] [address] Denys Alvarado M.D. Director [facility] # [id number] RUN DATE: 03/19/19 [facility] LAB LIVE PAGE 2 Patient: AMADOU RODAS [id number] (Continued) GROSS DESCRIPTION (Continued) 0.4 x 0.3 x 0.2 cm ortiz-pink irregular soft tissue fragment which is submitted entirely in one cassette. Signed by and Reported on: Denys Alvarado MD 1342 END OF REPORT DEPARTMENT OF PATHOLOGY, [address] [place] [address] Denys Alvarado M.D. Director [facility] # [id number] SEE RESULT BELOW Name: AMADOU RODAS Milla : [address]: Veronica Traylor MD Acct: [id number] Unit: [id number] AGE: 58 Location: ENDO Re03/18/19 SEX: F Status: DEP REF SPEC: [id number] ALEJA: 03/18/[address] [facility] [address]: Veronica Andersen MD REQ: [id number] RECD: 03/18/19 STATUS: TAMIKO GONZALES DR: Dori Wilburn 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 Cecal mucosa, biopsy: -- Focal hyperplastic change. -- No evidence of acute or chronic inflammatory bowel process identified. -- No adenomatous changes identified. 2. Colon, transverse, biopsy: -- Tubular adenoma. -- No high grade dysplasia or malignancy. 3. Colon, sigmoid, biopsy: -- Hyperplastic polyp. POST-OPERATIVE DIAGNOSIS Colonoscopy: to cecum; unknown polyp ??? biopsy; transverse 3-4 mm jumbo; very difficult sigmoid 3 mm jumbo; sigmoid diverticulosis; hypertrophic adenoma polyp; cold snare GROSS DESCRIPTION 1. The specimen is received in formalin labeled, Abnormal Cecal Mucosa Biopsy, and consists of a 0.4 x 0.4 x 0.1 cm ortiz-yellow irregular soft tissue fragment which is submitted entirely in one cassette. 2. The specimen is received in formalin labeled, Transverse Colon Polyp Biopsy, and consists of two ortiz-yellow irregular to polypoid soft tissue fragments measuring 0.2 x 0.1 x 0.1 cm and 0.3 x 0.2 x 0.2 cm which are submitted entirely in one cassette. 3. The specimen is received in formalin labeled, Sigmoid Polyp Biopsy, and consists of a CONTINUED ON NEXT PAGE DEPARTMENT OF PATHOLOGY, [address] [place] [address] Denys Alvarado M.D. Director [facility] # [id number] RUN DATE: 03/19/19 [facility] LAB LIVE PAGE 2 Patient: AMADOU RODAS [id number] (Continued) GROSS DESCRIPTION (Continued) 0.4 x 0.3 x 0.2 cm ortiz-pink irregular soft tissue fragment which is submitted entirely in one cassette. Signed by and Reported on: Denys Alvarado MD 1342 END OF REPORT DEPARTMENT OF PATHOLOGY, [address] [place] [address] Denys Alvarado M.D. Director [facility] # [id number] 2 Desirable: <150 Borderline High: 150-199 High: 200-499 Very High: >500 3 Desirable: <200 Borderline High: 200-239 High: >239 4 Low: <40 Desirable: 40-60 High: >60 5 Desirable: <100 Near Optimal: 100-129 Borderline High: 130-159 High: 160-189 Very High: >189 6 Therapeutic target for the treatment of diabetes mellitus patients is <7% HBA1C, and in selective patients <6.0%. Please refer to [place] [employer] diabetic care guidelines for further information. 7 It is recognized that currently available assays for the detection of antibodies to HIV-1 and/or HIV-2 may not detect all infected individuals. HIV antibodies may be undetectable in some stages of the infection and in some clinical conditions. The performance of this assay has not been established for populations of infants or children. Assayed by Chemiluminescence Microparticle Immunoassay on the Siemens Advia Centaur CP. Values obtained with different methods or kits cannot be used interchangeably.The diagnostic specificity of the ADVIA Centaur 1/O/2 Enhanced assay in the low risk population was 99.90% (6052/6058) with a 95% confidence interval of 99.78 to 99.96%. 8 Test Performed by: [facility] [address] [place] [address] 9 Because ethnic data is not always readily [...] 15-29 5 Kidney failure <15 (or dialysis) 10 [id number] 11 [id number] 12 [id number] 13 Desirable: <150 Borderline High: 150-199 High: 200-499 Very High: >500 14 Desirable: <200 Borderline High: 200-239 High: >239 15 Low: <40 Desirable: 40-60 High: >60 16 Desirable: <100 Near Optimal: 100-129 Borderline High: 130-159 High: 160-189 Very High: >189 17 [id number] 18 [id number] 19 [id number] 20 Because ethnic data is not always readily [...] 15-29 5 Kidney failure <15 (or dialysis) Procedures Description No Information Available Medical Devices Description No Information Available Encounters Type Date Location Provider Dx Diagnosis Office Visit 01/19/2019 [facility] K57.32 Dvtrcli of lg int 11:30a [facility] Soheila Vizcaino, w/o perforation PA-Adelita or abscess w/o bleeding Office Visit 11/05/2018 [facility] R10.13 Epigastric pain 1:00p [facility] Soheila Vizcaino PA-C R10.32 Left lower quadrant pain R14.0 Abdominal distension (gaseous) Assessments Date Code Description Provider 01/19/2019 K57.32 Diverticulitis of large intestine LD Funes without perforation or abscess without bleeding 11/05/2018 R10.13 Epigastric pain Mary Vizcaino PA-C 11/05/2018 R10.32 Left lower quadrant pain Mary Vizcaino PA-C 11/05/2018 R14.0 Abdominal distension (gaseous) Mary Vizcaino PA-C Plan of Treatment 01/19/2019 - SANDY FunesCK57.32 Diverticulitis of large intestine without perforation or abscess without bleedingNew Medication:Peg 3350/ Electrolytes 240 gm - use as directed Functional Status Description No Information Available Mental Status Description No Information Available Referrals Description No Information Available
[2019-05-25] MEDS ORDERED: Famotidine IV* 10 MG/ML 2 ML (20 mg) IV ONE (06:00)
[2019-05-25] MEDS ORDERED: Levalbuterol 0.63MG/3ML NEB* UNIT OF USE INH ONE ×2 (06:00→06:08)
[2019-05-25] MEDS ORDERED: Lactated Ringers 1000 ML Bag* 1,000 ML IV SCH (06:00)
[2019-05-25] MEDS ORDERED: Famotidine IV* 10 MG/ML 2 ML (20 mg) ONE (06:08)
[2019-05-25] MEDS ORDERED: Heparin VIAL(*) 5000 UNITS/ML VIAL (FIVE THOUSAND) ONE (06:10)
[2019-05-25] MEDS ORDERED: Bupivacaine 0.25% SDV PF* 10 ML VIAL INJ ONE (06:38)
[2019-05-25] MEDS ORDERED: Surgical Lubricant STERILE* 120 GM TOP.GEL ONE (06:38)
[2019-05-25] MEDS ORDERED: Propofol* 10 MG/ML 20 ML BTL ONE (07:08)
[2019-05-25] MEDS ORDERED: Ketorolac INJ* 30 MG/ML 1 ML VIAL ONE (07:08)
[2019-05-25] MEDS ORDERED: Dexamethasone IV* 4 MG/ML 1 ML (4 MG) ONE (07:08)
[2019-05-25] MEDS ORDERED: fentaNYL* 50 MCG/ML 5 ML VIAL (250 MCG VIAL) ONE (07:08)
[2019-05-25] MEDS ORDERED: Ondansetron INJ* 2 MG/ML VIAL ONE (07:08)
[2019-05-25] MEDS ORDERED: Lidocaine 2% PF * 5 ML VIAL ONE (07:08)
[2019-05-25] MEDS ORDERED: Midazolam* 1 MG/ML 5 ML VIAL (5 MG) ONE (07:09)
[2019-05-25] MEDS ORDERED: KETAMINE HCL* 50 MG/ML 10 ML VIAL ONE (07:09)
[2019-05-25] MEDS ORDERED: Rocuronium* 10 MG/ML VIAL ONE ×2 (07:09→09:10)
[2019-05-25] MEDS ORDERED: Ertapenem* 1 GM in NS 0.9% 50 ML* 50 ML IVPB ONE (07:30)
[2019-05-25] MEDS ORDERED: Acetaminophen IV 1GM/100ML * 1,000 MG/100 ML VIAL IVPB ONE (09:26)
[2019-05-25] MEDS ORDERED: HYDROmorphone INJ1* 1 MG/ML SYRINGE IV PRN (09:26)
[2019-05-25] MEDS ORDERED: Naloxone* 0.4 MG/ML 1 ML VIAL IV PRN (09:26)
[2019-05-25] MEDS ORDERED: Ondansetron INJ* 2 MG/ML VIAL IV PRN (09:26)
[2019-05-25] MEDS ORDERED: Levalbuterol 0.63MG/3ML NEB* UNIT OF USE INH PRN (09:26)
[2019-05-25] MEDS ORDERED: fentaNYL* 50 MCG/ML 2 ML VIAL (100 MCG VIAL) ONE ×3 (09:42→14:44)
[2019-05-25] MEDS ORDERED: HYDROmorphone INJ1* 1 MG/ML SYRINGE ONE (12:50)
[2019-05-25] MEDS ORDERED: Sugammadex * 200 MG/2 ML VIAL IV PUSH ONE (12:50)
[2019-05-25] MEDS ORDERED: Acetaminophen IV 1GM/100ML * 100 ML ONE (13:08)
[2019-05-25] MEDS ORDERED: Bacitracin OINTMENT* 0.5% 0.5 oz TUBE ONE (13:12)
[2019-05-25] MEDS ORDERED: HYDROmorphone INJ* 0.5 MG/0.5 ML SYRINGE IV SLOW PU PRN (13:48)
[2019-05-25] MEDS ORDERED: Acetaminophen TAB* 325 MG PO PRN (13:55)
[2019-05-25] MEDS ORDERED: HYDROmorphone INJ1* 1 MG/ML SYRINGE IV SLOW PU PRN (14:07)
[2019-05-25] MEDS: fentaNYL* 50 MCG/ML 2 ML VIAL (100 MCG VIAL) IV PRN ×2 (14:46→15:15)
[2019-05-25] MEDS: Lactated Ringers 1000 ML Bag* 1,000 ML IV SCH (15:56)
[2019-05-25] MEDS: Ketorolac INJ* 30 MG/ML 1 ML VIAL IV PRN (16:04)
[2019-05-25] MEDS: oxyCODONE/Acetamin 5/325 MG* TAB PO PRN (20:06)
[2019-05-25] MEDS ORDERED: Mometasone/Formoter 100/5 MDI INH PRN (21:00)
[2019-05-25] MEDS: Heparin VIAL(*) 5000 UNITS/ML VIAL (FIVE THOUSAND) SUBCUT SCH (22:47)
[2019-05-26] MEDS: Ketorolac INJ* 30 MG/ML 1 ML VIAL IV PRN ×4 (00:13→19:27)
[2019-05-26] MEDS: Ondansetron INJ* 2 MG/ML VIAL IV PRN ×4 (01:16→22:56)
--- NOTE | 2019-05-26 02:02 | OP ---
DATE OF OPERATION: 05/25/19 - ROOM #346 DATE OF : 64 SURGEON: Rosendo Ponce MD. SURGICAL PATHOLOGIST: NITISH Marcial. SECOND PREPARATORY TECHNICIAN: LD Judd PRE-OP DIAGNOSIS: Recurrent sigmoid diverticulitis. POST-OP DIAGNOSIS: Sigmoid diverticulitis, extensive intraabdominal adhesions. OPERATIVE PROCEDURE: Robotic sigmoid colectomy, extensive adhesiolysis. INDICATIONS FOR PROCEDURE: Recurrent persistent significant sigmoid diverticulitis, risks of sigmoid colectomy included but limited to bleeding, infection, anastomotic leak, injury to intraabdominal contents including the bowel, ureter, other intraabdominal contents. I explained to the patient who seemed to understand and agreed to the procedure and all questions were answered. DESCRIPTION OF PROCEDURE: The patient was taken to the operating room, placed supine. Preoperative antibiotics were given. After the successful induction of general endotracheal anesthesia, Good catheter was placed. The abdomen was prepped and draped in the sterile fashion. A time-out was performed indicating correct patient, correct procedure. A subxiphoid trocar was placed under direct visualization of the camera. Using a bladeless Optiview trocar a pneumoperitoneum was achieved at 15 mmHg. Camera was placed in the abdomen, the abdomen was scanned. There was no obvious injury from trocar placement. Numerous adhesions were known to the center of the abdomen and pelvis. I was able to place 8 mm trocars in line along the right side of her abdomen, total of 3 and then a 12 mm trocar in the right lower quadrant. A 5th portal was also placed with an AirSeal trocar. An extensive adhesiolysis was then undertaken, taking the adhesions down of the omentum to the anterior abdominal wall. This went from the pelvis up to the upper abdomen near the xiphoid trocar. She also had numerous adhesions, small bowel down in the pelvis and towards the left side of the pelvis and these were gently taken down as well under direct visualization of the camera. This significantly increased the time of the procedure by at least an hour to an hour and a half. Once the adhesions were lysed, I was able to start to mobilize the colon and was able to divide the colon at the sigmoid, rectal junction using a 60 mm stapler. The colon was mobilized medially along the lateral peritoneal reflection freeing this up to an area where it was out of the obvious chronically inflated sigmoid into an area that was soft, pliable, appeared normal. More colon was mobilized up towards the splenic flexure and around getting towards the splenic flexure. The colon was divided at this point as well and the mesentery was taken using the robotic vessel sealer. The left ureter was identified and avoided. The robot was then undocked. A small Pfannenstiel incision was made in the lower midline over her previous scar and the sigmoid colon was removed. A GelPort was then placed through this defect and a 25 mm EEA anvil was passed through this. An anterior mesenteric colotomy was made in the proximal colon. The Anvil was placed through this opening and a purse-string suture was sutured around the anvil in order to hold it in place and close the enterotomy. Air was insufflated into the rectum and then a sizer was placed into the rectum and then the 25 mm EEA stapling device was advanced up into the rectum and the proximal sigmoid was anastomosed to the antimesenteric anterior surface over the rectum just distal to the staple line by about 2 to [address] the EEA came out comfortably. Just prior to dividing the sigmoid colon, Firefly was used and excellent blood supply was noted to both the rectum and the sigmoid proximally and this was evaluated after the division as well and good blood flow was noted. Firefly was once again used just prior to the anastomosis in the rectum and distal sigmoid, both showed excellent blood flow throughout the entire segment. Once the anastomosis was performed, air was insufflated into the rectum as the proximal bowel was gently clamped and saline was filled into the pelvis. A few small bubbles were noted anteriorly at the suture line and the entire anterior surface from the left lateral aspect to the right lateral aspect was over sewn in double layer. The air was re-insufflated , no leak was noted. No air bubbles. The anastomosis looked good. The air was released. The omentum was placed over the anastomosis. The abdomen was scanned at the end but also intermittently during the procedure, no obvious injuries were noted. The Pfannenstiel incision was then closed using 3-0 Vicryl for the peritoneum and muscle and #1 PDS for the fascia. The skin was closed with Monocryl and glue at all the trocars sites. The space in the small Pfannenstiel incision was closed with 3-0 Vicryl and the skin was closed with Monocryl. Antibiotic ointment was applied. Sponge, needle, and instrument count were reported correct at the end of the procedure. ESTIMATED BLOOD LOSS: About 20 cc. She tolerated the procedure well, she was extubated and taken to the recovery room in stable condition. [id number]/[facility] #: [id number] MTDD
[2019-05-26] MEDS: Lactated Ringers 1000 ML Bag* 1,000 ML IV SCH ×3 (03:13→19:23)
[2019-05-26] MEDS: oxyCODONE/Acetamin 5/325 MG* TAB PO PRN ×2 (03:25→08:02)
[2019-05-26 06:15] LABS: ABS Lymphocytes 1.1 10^3/ul (1.0-4.8); ABS Monocytes 1.2 10^3/ul (0-0.8); ABS Neutrophils 11.5 10^3/ul (1.5-7.7); Hematocrit 39 % (35-47); Hemoglobin 12.3 g/dL (12.0-16.0); Mean Corpuscular HGB Conc 32 g/dL (31-36); Mean Corpuscular Hemoglobin 26 pg (27-31); Mean Corpuscular Volume 83 fL (80-97); Nucleated Red Blood Cells % 0.1; Platelet Count 230 10^3/uL (150-450); Red Cell Distribution Width 16 % (10-15); White Blood Count 13.8 10^3/uL (3.5-10.8)
[2019-05-26] MEDS: Levothyroxine TAB* 75 MCG TAB PO SCH (06:33)
[2019-05-26] MEDS: Heparin VIAL(*) 5000 UNITS/ML VIAL (FIVE THOUSAND) SUBCUT SCH ×3 (06:34→22:48)
[2019-05-26 06:40] LABS: BUN/Creatinine Ratio 12.5 (8-20); EGFR African American 116.1 (>60); Potassium 3.7 mmol/L (3.5-5.0)
[2019-05-26] MEDS: SPIRIVA Respimat* (tiotropium) 2.5 mcg/inh Inhaler INH SCH (08:45)
--- NOTE | 2019-05-26 08:53 | PN ---
Progress Note - Progress Note Date of Service: 05/26/19 Note: S: POD #1. Had a rough night between pain and vomiting. Last vomited at 0300. Still some nausea this a.m. Ambulating. Belching. No flatus or stool. O: Vital Signs - 8 hr 05/26/19 05/26/19 05/26/19 01:12 03:25 04:02 Temperature 97.9 F Pulse Rate 82 Respiratory 18 20 Rate Blood Pressure 129/80 (mmHg) O2 Sat by Pulse 100 98 Oximetry 05/26/19 05/26/19 05/26/19 06:46 07:58 08:02 Temperature 97.7 F Pulse Rate 76 Respiratory 18 16 20 Rate Blood Pressure 114/61 (mmHg) O2 Sat by Pulse 98 Oximetry Intake and Output Last 24 Hours 05/24/19 05/25/19 05/26/19 05/27/19 06:59 06:59 06:59 06:59 Intake Total 3600 Output Total 1565 Balance 2034 Weight 167 lb Intake: IV Fluids 3600 LR 3600 Output: Good 1565 Gen: lying in bed; NAD Heart: reg Lungs: clear ant; few bibasilar crackles Abd: lap sites ok; suprapubic drsg dry, intact; +BS; mild tympany; soft; diffuse mild tenderness, somewhat increased at suprapubic incision Extr: no edema; SCDs in place Labs: Laboratory Tests 05/26/19 05/26/19 05:58 05:58 WBC 13.8 H Hgb 12.3 Potassium 3.7 Glucose 135 H A: s/p robotic sigmoid colectomy w/ PONV and pain P: will add scopolamine patch; adjust Morphine; encourage ambulation; likely d/ c Latisha (will d/w Dr. Ponce)
[2019-05-26] MEDS ORDERED: Morphine INJ* 4 MG/ML 1 ML SYRINGE (NEW SYRINGE VERSION) IV PRN (08:54)
[2019-05-26] MEDS: Scopolamine 1.5 mg* PATCH TRANSDERM SCH (09:13)
[2019-05-26] MEDS: Scopolamine PATCH Remove* 1 NOTE MISC PATCH OFF SCH (09:17)
--- NOTE | 2019-05-26 10:42 | PN ---
Progress Note - Progress Note Date of Service: 05/26/19 Note: Complains of incisional discomfort improved from last night. She did a lot of walking last night. Exam: incisions healing well abdomen soft Assessment/plan stable, improving, remove Good, increase activity, likely home tomorrow.
[2019-05-26] MEDS: Morphine INJ* 2 MG/ML 1 ML SYRINGE (TWO MG - NEW SYRINGE VERSION) IV PRN ×2 (15:29→22:56)
[2019-05-27] MEDS: Morphine INJ* 2 MG/ML 1 ML SYRINGE (TWO MG - NEW SYRINGE VERSION) IV PRN ×2 (03:49→08:05)
[2019-05-27] MEDS: Ketorolac INJ* 30 MG/ML 1 ML VIAL IV PRN ×2 (03:52→12:40)
[2019-05-27] MEDS: Levothyroxine TAB* 75 MCG TAB PO SCH (06:37)
[2019-05-27] MEDS: Heparin VIAL(*) 5000 UNITS/ML VIAL (FIVE THOUSAND) SUBCUT SCH ×3 (06:38→22:33)
[2019-05-27] MEDS: Ondansetron INJ* 2 MG/ML VIAL IV PRN (08:09)
[2019-05-27] MEDS ORDERED: hydrOXYzine HCL TAB* 10 MG PO PRN (08:59)
--- NOTE | 2019-05-27 09:04 | PN ---
Progress Note - Progress Note Date of Service: 05/27/19 SOAP: Subjective: [] operative pain, no flatus Objective: [] Temp Pulse Resp BP Pulse Ox 98.3 F 86 18 108/53 95 05/27/19 07:32 05/27/19 07:32 05/27/19 08:05 05/27/19 07:32 05/27/19 07:32 Intake & Output 05/25/19 05/26/19 05/27/19 05/28/19 06:59 06:59 06:59 06:59 Intake Total 3600 3952 Output Total 1565 750 Balance 2034 3202 Weight 167 lb Intake: IV Fluids 3600 2952 LR 3600 2952 Oral 1000 Output: Urine 250 Good 1565 500 incisions cdi, abdomen soft Assessment: []stable, Plan: []check labs increase activity, change pain meds, adv diet
[2019-05-27] MEDS: traMADol TAB* 50 MG PO PRN (10:32)
[2019-05-27] MEDS: SPIRIVA Respimat* (tiotropium) 2.5 mcg/inh Inhaler INH SCH (10:32)
[2019-05-27 10:40] LABS: ABS Lymphocytes 1.4 10^3/ul (1.0-4.8); ABS Monocytes 0.7 10^3/ul (0-0.8); ABS Neutrophils 12.8 10^3/ul (1.5-7.7); Hematocrit 40 % (35-47); Hemoglobin 12.8 g/dL (12.0-16.0); Lymphocyte % 9.1 %; Mean Corpuscular HGB Conc 32 g/dL (31-36); Mean Corpuscular Hemoglobin 27 pg (27-31); Mean Corpuscular Volume 82 fL (80-97); Mean Platelet Volume 9.3 fL (7.4-10.4); Nucleated Red Blood Cells % 0.1; Platelet Count 249 10^3/uL (150-450); Red Blood Count 4.83 10^6 /uL (3.70-4.87); Red Cell Distribution Width 17 % (10-15); White Blood Count 14.8 10^3/uL (3.5-10.8)
[2019-05-27 10:58] LABS: BUN/Creatinine Ratio 18.8 (8-20); Calcium 8.8 mg/dL (8.6-10.3); EGFR African American 106.5 (>60); Magnesium 1.5 mg/dL (1.9-2.7); Potassium 3.8 mmol/L (3.5-5.0)
[2019-05-27] MEDS ORDERED: oxyCODONE/Acetamin 5/325 MG* TAB PO PRN (14:40)
[2019-05-27] MEDS: oxyCODONE/Acetamin 5/325 MG* TAB PO PRN ×2 (15:09→21:48)
[2019-05-27] MEDS: Polyethylene Glycol 3350* 17 GM PACKET PO SCH (21:48)
[2019-05-28] MEDS: traMADol TAB* 50 MG PO PRN (00:14)
[2019-05-28] MEDS: oxyCODONE/Acetamin 5/325 MG* TAB PO PRN ×2 (04:11→20:59)
[2019-05-28 05:22] LABS: ABS Lymphocytes 1.3 10^3/ul (1.0-4.8); ABS Monocytes 0.9 10^3/ul (0-0.8); ABS Neutrophils 13.1 10^3/ul (1.5-7.7); Eosinophil % 0.1 %; Hematocrit 40 % (35-47); Hemoglobin 13.2 g/dL (12.0-16.0); Lymphocyte % 8.6 %; Mean Corpuscular HGB Conc 33 g/dL (31-36); Mean Corpuscular Hemoglobin 27 pg (27-31); Mean Corpuscular Volume 82 fL (80-97); Mean Platelet Volume 9.5 fL (7.4-10.4); Platelet Count 237 10^3/uL (150-450); Red Blood Count 4.87 10^6 /uL (3.70-4.87); Red Cell Distribution Width 17 % (10-15); White Blood Count 15.4 10^3/uL (3.5-10.8)
[2019-05-28 05:37] LABS: Calcium 8.8 mg/dL (8.6-10.3); EGFR African American 65.6 (>60); EGFR Non-African American 54.2 (>60); Potassium 4.1 mmol/L (3.5-5.0)
[2019-05-28] MEDS: Heparin VIAL(*) 5000 UNITS/ML VIAL (FIVE THOUSAND) SUBCUT SCH ×3 (06:08→22:03)
[2019-05-28] MEDS: Levothyroxine TAB* 75 MCG TAB PO SCH (06:08)
[2019-05-28] MEDS ORDERED: NS 0.9% 500 ML* 500 ML IV ONE (07:59)
--- NOTE | 2019-05-28 08:05 | PN ---
Progress Note - Progress Note Date of Service: 05/28/19 SOAP: Subjective: []"my mouth is so dry", no flatus, not complaining of pain Objective: [] Temp Pulse Resp BP Pulse Ox 97.3 F 101 16 112/77 93 05/28/19 06:18 05/28/19 06:18 05/28/19 06:18 05/28/19 06:18 05/28/19 06:18 Laboratory Last Values WBC 15.4 10^3/uL (3.5-10.8) H 05/28/19 04:48 RBC 4.87 10^6 /uL (3.70-4.87) 05/28/19 04:48 Hgb 13.2 g/dL (12.0-16.0) 05/28/19 04:48 Hct 40 % (35-47) 05/28/19 04:48 MCV 82 fL (80-97) 05/28/19 04:48 MCH 27 pg (27-31) 05/28/19 04:48 MCHC 33 g/dL (31-36) 05/28/19 04:48 RDW 17 % (10-15) H 05/28/19 04:48 Plt Count 237 10^3/uL (150-450) 05/28/19 04:48 MPV 9.5 fL (7.4-10.4) 05/28/19 04:48 Neut % (Auto) 85.4 % 05/28/19 04:48 Lymph % (Auto) 8.6 % 05/28/19 04:48 Sterling % (Auto) 5.6 % 05/28/19 04:48 Eos % (Auto) 0.1 % 05/28/19 04:48 Baso % (Auto) 0.3 % 05/28/19 04:48 Absolute Neuts (auto) 13.1 10^3/ul (1.5-7.7) H 05/28/19 04:48 Absolute Lymphs (auto) 1.3 10^3/ul (1.0-4.8) 05/28/19 04:48 Absolute Monos (auto) 0.9 10^3/ul (0-0.8) H 05/28/19 04:48 Absolute Eos (auto) 0.0 10^3/ul (0-0.6) 05/28/19 04:48 Absolute Basos (auto) 0.0 10^3/ul (0-0.2) 05/28/19 04:48 Absolute Nucleated RBC 0.0 10^3/ul 05/28/19 04:48 Nucleated RBC % 0.0 05/28/19 04:48 Sodium 130 mmol/L (135-145) L 05/28/19 04:48 Potassium 4.1 mmol/L (3.5-5.0) 05/28/19 04:48 Chloride 99 mmol/L (101-111) L 05/28/19 04:48 Carbon Dioxide 25 mmol/L (22-32) 05/28/19 04:48 Anion Gap 6 mmol/L (2-11) 05/28/19 04:48 BUN 22 mg/dL (6-24) 05/28/19 04:48 Creatinine 1.05 mg/dL (0.51-0.95) H 05/28/19 04:48 Est GFR ( Amer) 65.6 (>60) 05/28/19 04:48 Est GFR (Non-Af Amer) 54.2 (>60) 05/28/19 04:48 BUN/Creatinine Ratio 21.0 (8-20) H 05/28/19 04:48 Glucose 120 mg/dL (70-100) H 05/28/19 04:48 Calcium 8.8 mg/dL (8.6-10.3) 05/28/19 04:48 Magnesium 1.5 mg/dL (1.9-2.7) L 05/27/19 10:22 Intake & Output 05/26/19 05/27/19 05/28/19 05/29/19 06:59 06:59 06:59 06:59 Intake Total 3600 3952 2575 Output Total 1565 750 300 Balance 2035 3202 2275 Intake: IV Fluids 3600 2952 835 LR 3600 2952 835 Oral 1000 1740 Output: Urine 250 300 Good 1565 500 Other: Estimated Void Medium # Voids 1 abdomen distended, nontender Assessment: []ileus tachycardia, dehydration, increasing wbc, concern for other occult intra abdominal process Plan: []ivf bolus, with continuous iv, await response npo may need gastrograffin enema vs other investigational process
[2019-05-28] MEDS: Polyethylene Glycol 3350* 17 GM PACKET PO SCH ×2 (09:09→20:43)
[2019-05-28] MEDS: SPIRIVA Respimat* (tiotropium) 2.5 mcg/inh Inhaler INH SCH (10:00)
[2019-05-28] MEDS: Lactated Ringers 1000 ML Bag* 1,000 ML IV SCH ×2 (12:13→18:10)
[2019-05-28] MEDS: Morphine INJ* 2 MG/ML 1 ML SYRINGE (TWO MG - NEW SYRINGE VERSION) IV PRN (13:57)
[2019-05-29] MEDS: Lactated Ringers 1000 ML Bag* 1,000 ML IV SCH ×4 (00:39→18:12)
[2019-05-29] MEDS: traMADol TAB* 50 MG PO PRN ×2 (00:45→11:32)
[2019-05-29 05:00] LABS: Hematocrit 34 % (35-47); Mean Corpuscular HGB Conc 33 g/dL (31-36); Mean Corpuscular Hemoglobin 27 pg (27-31); Mean Corpuscular Volume 82 fL (80-97); Mean Platelet Volume 8.6 fL (7.4-10.4); Platelet Count 253 10^3/uL (150-450); Red Blood Count 4.13 10^6 /uL (3.70-4.87); Red Cell Distribution Width 17 % (10-15); White Blood Count 10.3 10^3/uL (3.5-10.8)
[2019-05-29 05:14] LABS: BUN/Creatinine Ratio 30.6 (8-20); Calcium 8.2 mg/dL (8.6-10.3); EGFR African American 120.5 (>60); EGFR Non-African American 99.6 (>60); Potassium 3.5 mmol/L (3.5-5.0)
[2019-05-29] MEDS: Levothyroxine TAB* 75 MCG TAB PO SCH (05:55)
[2019-05-29] MEDS: Heparin VIAL(*) 5000 UNITS/ML VIAL (FIVE THOUSAND) SUBCUT SCH ×3 (05:55→22:37)
[2019-05-29] MEDS: oxyCODONE/Acetamin 5/325 MG* TAB PO PRN (06:02)
[2019-05-29 06:57] LABS: ABS Eosinophils 0.1 10^3/ul (0-0.6); ABS Lymphocytes 1.1 10^3/ul (1.0-4.8); ABS Monocytes 0.8 10^3/ul (0-0.8); ABS Neutrophils 8.3 10^3/ul (1.5-7.7); Eosinophil % 0.6 %; Lymphocyte % 10.4 %; Nucleated Red Blood Cells % 0.2
[2019-05-29] MEDS ORDERED: NS 0.9% 1000 ML** 1,000 ML IV ONE ×2 (10:21→11:45)
[2019-05-29] MEDS ORDERED: Iohexol 350* (CONTRAST) 500 ML MDV IV ONE (10:30)
--- NOTE | 2019-05-29 11:09 | PN ---
Progress Note - Progress Note Date of Service: 05/29/19 SOAP: Subjective: : Patient in bed shivering when first seen. C/O left anterior thigh pain. had been ambulating this morning [] Objective: Vital Signs: Temp Pulse Resp BP Pulse Ox 98 F 93 14 125/64 94 05/29/19 07:32 05/29/19 07:32 05/29/19 07:32 05/29/19 07:32 05/29/19 07:32 During exam heart rate of 95, O2 sats 98 on 2 litres, afebrile. while examining , HR went to 15, O2 sat to 88. [] Assessment: 58 yo female POD 4 s/p robotic sigmoid colectomy, s/p negative for leak BE 05/28, new onset O2 desaturation, new onset left anterior thigh pain. [] Plan: rapid response was called, transfer to ICU, stat CT angio chest to thigh, EKG, Lactic acid. []
[2019-05-29] MEDS: Polyethylene Glycol 3350* 17 GM PACKET PO SCH (11:25)
--- NOTE | 2019-05-29 11:41 | PN ---
Date of Service: 05/29/19 - HD 5 Critical Care Services: 58 yo F admitted on 05/25 after an elective robotic sigmoid colectomy. 05/26: nausea and vomiting. Postop ileus. On Morphine for pain. Ambulating. 05/27: diet advanced 05/28: still awaiting return of bowel function. noted to have tachycardia, dehydration and increasing WBC. Bolused IVF and started on maintenance rate. Returned to NPO. 05/29: Rigors and complaints of left anterior thigh pain. Rapid response called and transferred to ICU. CTA chest, abdomen and pelvis negative for PE. Shows intraabdominal fluid and air (expected postop?) as well as partially loculated fluid collection in lower anterior abdominal wall 13.2cm diameter concerning for developing abscess Vital Signs: Temp Pulse Resp BP SpO2 FiO2 98.3 F 99 22 120/72 93 05/29/19 11:13 05/29/19 11:13 05/29/19 11:13 05/29/19 11:13 05/29/19 11:13 Physical Exam: Gen:resting comfortably HEENT: intact Lungs: CTAB Cardiac: RRR Abdomen: soft, mildly distended. appropriately TTP. no erythema Extremities: warm,dry Neuro: alert and oriented Fluid Balance (Past 24 Hours): I= O= Net Intake & Output 05/27/19 05/28/19 05/29/19 05/30/19 06:59 06:59 06:59 06:59 Intake Total 3952 2575 4291 902 Output Total 465 602 8126 200 Balance 3202 2275 3241 702 Weight 167 lb Intake: IV Fluids 2952 835 3731 902 LR 2952 835 3731 902 Oral 1000 1740 560 Output: Urine 219 283 7185 200 Good 500 Other: Estimated Void Medium Medium Date of Last Bowel 05/29/19 Movement # Bowel Movements 1 Estimated Stool Amount Small # Voids 1 Labs: Laboratory Results - last 24 hr 05/29/19 05/29/19 04:51 04:51 WBC 10.3 RBC 4.13 Hgb 11.0 L Hct 34 L MCV 82 MCH 27 MCHC 33 RDW 17 H Plt Count 253 MPV 8.6 Neut % (Auto) 80.5 Lymph % (Auto) 10.4 Nelson % (Auto) 8.2 Eos % (Auto) 0.6 Baso % (Auto) 0.3 Absolute Neuts (auto) 8.3 H Absolute Lymphs (auto) 1.1 Absolute Monos (auto) 0.8 Absolute Eos (auto) 0.1 Absolute Basos (auto) 0.0 Absolute Nucleated RBC 0.0 Nucleated RBC % 0.2 Sodium 132 L Potassium 3.5 Chloride 99 L Carbon Dioxide 27 Anion Gap 6 BUN 19 Creatinine 0.62 Est GFR ( Amer) 120.5 Est GFR (Non-Af Amer) 99.6 BUN/Creatinine Ratio 30.6 H Glucose 103 H Calcium 8.2 L Studies: 05/29 CTA CAP: negative for PE. Shows intraabdominal fluid and air (expected postop?) as well as partially loculated fluid collection in lower anterior abdominal wall 13.2cm diameter concerning for developing abscess EKG: PVCs 05/28 Barium enema: no evidence for enteric leak or bowel obstruction Nutrition: NPO Impression: 58 yo F POD 4 from robotic sigmoidectomy. Now with rigors and left thigh pain. Transferred to ICU for concerns of developing sepsis. Plan: Hospital Diagnoses: #1: Sepsis #2: Postoperative wound infection #3: Postoperative ileus #4: Hypocalcemia Cardiovascular: (1) Sinus tachycardia secondary to sepsis -- HR 88-112 -- SBP 120-139 -- Telemetry Home meds: None Pulmonary: (1) Chronic asthma; (2) VIKTOR -- RR 14-26 -- sats 92-96 on 4L NC -- CTA chest: no PE. Bibasilar actelectasis and bilateral pleural effusions left> right. -- Spiriva Home meds: Symbicort, Spiriva Gastrointestinal: (1) s/p robotic sigmoidectomy; (2) postoperative ileus -- diet: NPO -- bowel regimen: None -- ulcer prophylaxis: not indicated at this time -- Scopalamine & PRN Zofran for nausea Home meds: None Endocrine: (1) Chronic hypothyroidism -- monitor BGs -- Levothyroxine Home meds: Levothyroxine Renal: (1) Hypocalcemia -- UOP: 40 ml/hr -- Cr 0.62 -- Lytes Na 132 from 130 K 3.5 Ca 8.2, replaced Mag ordered Phos ordered -- IVF: LR @ 100 ml/hr Home meds: None Infectious disease: (1) Sepsis -- Tmax 99.1 -- WBC 10.3 from 15.4 -- Micro 8 blood in progress UA ordered -- ABX Levaquin Flagyl Home meds: None Neurologic: (1) Postoperative pain -- Oxycodone/acetaminophen and Morphine PRN for postoperative pain control Home meds: None Hematological: (1) Anemia, dilutional -- Hgb 11.0 from 13.2 -- Plt 253 from 237 -- DVT prophylaxis: SQ Heparin Home meds: None Metabolic: No acute issues -- lactic acid pending Home meds: None Other: No acute issues Home meds: None Deep vein thrombosis prophylaxis: SQ Heparin Dietary: Not indicated at this itme Condition: serious Prognosis: good Code status: full Disposition: transferred to ICU Family updated at bedside regarding interval events and plan of care Cumulative time spent in the care of this patient (excluding any procedure time) : at least 50 minutes. Patient care included clinical interview (with patient and/or family), bedside exam of the patient, review of labs, x-rays, and other ancillary data, coordination of (respiratory, nursing care, review of patient's records, discussion regarding patients management with involved consultants, primary physician, pharmacists, and other healthcare personnel (dietary, case management , physical/occupational therapy etc.) Critical Care Time: none
[2019-05-29] MEDS: Scopolamine PATCH Remove* 1 NOTE MISC PATCH OFF SCH (11:59)
[2019-05-29] MEDS ORDERED: Calcium Gluconate INJ* 1 GM in NS 0.9% 50 ML* 50 ML IVPB ONE (12:00)
[2019-05-29] MEDS ORDERED: Piperacillin/Tazobac ADVAN(*) 3.375 GM in NS 0.9% 100 ML* 100 ML IVPB ONE ×2 (12:01→12:07)
[2019-05-29] MEDS: Scopolamine 1.5 mg* PATCH TRANSDERM SCH (12:17)
[2019-05-29] MEDS: Levofloxacin 500 MG IVPREMIX(* 500 MG/100 ML BAG IVPB SCH (12:38)
[2019-05-29] MEDS: metroNIDAZOLE IV 500 MG/100ML* 500 MG/100 ML BAG IVPB SCH ×2 (12:38→20:26)
[2019-05-29 12:40] LABS: Magnesium 1.7 mg/dL (1.9-2.7); Phosphorus 1.6 mg/dL (2.5-5.0)
[2019-05-29] MEDS ORDERED: Succinylcholine* 20 MG/ML 10 ML VIAL ONE (12:45)
[2019-05-29] MEDS ORDERED: fentaNYL* 50 MCG/ML 5 ML VIAL (250 MCG VIAL) ONE (12:45)
[2019-05-29] MEDS ORDERED: Midazolam* 1 MG/ML 2 ML VIAL (2 MG) ONE (12:45)
[2019-05-29] MEDS ORDERED: Etomidate* 2 MG/ML 10 ML VIAL ONE (12:45)
[2019-05-29] MEDS ORDERED: Lidocaine 2% PF * 5 ML VIAL ONE (12:45)
[2019-05-29] MEDS ORDERED: Zosyn per Pharmacy* NOTE FOLLOW UP SCH (13:00)
[2019-05-29] MEDS ORDERED: Rocuronium* 10 MG/ML VIAL ONE (13:14)
[2019-05-29 13:52] LABS: Urine Appearance Clear; Urine Bilirubin Negative (Negative); Urine Blood Negative (Negative); Urine Color Yellow; Urine Glucose Negative (Negative); Urine Ketones Trace (Negative); Urine Nitrite Negative (Negative); Urine Protein Negative (Negative); Urine Specific Gravity 1.047 (1.010-1.030); Urine Urobilinogen Negative (Negative)
[2019-05-29] MEDS ORDERED: Phenylephrine 40 MCG/ML SYRINGE ONE (13:56)
[2019-05-29] MEDS ORDERED: Sugammadex * 500 MG/5 ML VIAL IV PUSH ONE (14:42)
[2019-05-29] MEDS ORDERED: fentaNYL* 50 MCG/ML 2 ML VIAL (100 MCG VIAL) ONE ×2 (14:51→16:48)
[2019-05-29] MEDS ORDERED: Naloxone* 0.4 MG/ML 1 ML VIAL IV PRN (15:29)
[2019-05-29] MEDS ORDERED: Ketorolac INJ* 30 MG/ML 1 ML VIAL IV PRN (15:29)
[2019-05-29] MEDS ORDERED: Morphine INJ* 2 MG/ML 1 ML SYRINGE (TWO MG - NEW SYRINGE VERSION) IV PRN (15:29)
[2019-05-29] MEDS ORDERED: PROCHLORPERAZINE INJ 5 MG/ML 2 ML VIAL IV PRN (15:29)
[2019-05-29] MEDS ORDERED: fentaNYL* 50 MCG/ML 2 ML VIAL (100 MCG VIAL) IV PRN (15:29)
[2019-05-29] MEDS ORDERED: Acetaminophen IV 1GM/100ML * 1,000 MG/100 ML VIAL IVPB ONE ×2 (15:29→16:57)
[2019-05-29] MEDS ORDERED: Ondansetron INJ* 2 MG/ML VIAL IV PRN (15:29)
[2019-05-29] MEDS ORDERED: Levalbuterol 0.63MG/3ML NEB* UNIT OF USE INH PRN (15:29)
[2019-05-29] MEDS: SPIRIVA Respimat* (tiotropium) 2.5 mcg/inh Inhaler INH SCH (15:34)
[2019-05-29] MEDS ORDERED: Sodium Phosphate INJ* 15 MMOLE in NS 0.9% 250 ML* 250 ML IVPB ONE (15:52)
[2019-05-29] MEDS ORDERED: Magnesium Sulfate 1 GM IV* 1 GM/100 ML BAG IV ONE (15:52)
[2019-05-29] MEDS: Morphine INJ* 2 MG/ML 1 ML SYRINGE (TWO MG - NEW SYRINGE VERSION) IV PRN ×3 (15:57→21:49)
[2019-05-29] MEDS: fentaNYL* 50 MCG/ML 2 ML VIAL (100 MCG VIAL) IV SLOW PU PRN ×2 (16:55→23:28)
[2019-05-29 17:36] LABS: BUN/Creatinine Ratio 30.4 (8-20); Calcium 7.6 mg/dL (8.6-10.3); EGFR Non-African American 140.5 (>60); Potassium 3.5 mmol/L (3.5-5.0)
[2019-05-29] MEDS ORDERED: Lidocaine 2% JELLY* 5 ML TUBE LIDO2GEL7 TOPICAL PRN (18:32)
--- NOTE | 2019-05-29 20:53 | OP ---
DATE OF OPERATION: 05/29/19 - ROOM #335 DATE OF : 64 ATTENDING SURGEON: Rosendo Ponce MD SMALL ENGINE TECHNICIAN: LD Poon PRE-OP DIAGNOSIS: Intraabdominal infection/fluid collection; there is concern for enteric source. POST-OP DIAGNOSES: Intraabdominal infection/fluid collection; there is concern for enteric source, small bowel enterotomy. OPERATIVE PROCEDURE: Exploratory laparotomy, drainage of fluid, drainage of enteric contents, oversew of small bowel enterotomy. INDICATIONS FOR PROCEDURE: Postop day 4 after sigmoid colectomy with tachycardia, hypotension, and abnormal CT scan showing large pelvic fluid collection. Risks of the surgery included but not limited to bleeding, infection, injury to abdominal contents including the bowel, possibility of bowel resection and ostomy, TX, pneumonia, PE, arrhythmia, all explained to the patient, who seemed to understand. Consent was signed. All questions were answered. DESCRIPTION OF PROCEDURE: The patient was taken to the operating room, placed supine. Preoperative antibiotics have been given. After the successful induction of general endotracheal anesthesia, a Good catheter was placed and abdomen was prepped and draped in sterile fashion. A midline incision was made over her old midline incision, carried down through the subcutaneous tissue and the fascia and peritoneum were opened at the umbilicus. Large amount of bilious contents was aspirated and the fascia was opened down to the pubis along the peritoneum. Once large amount of bilious contents was aspirated, the abdomen was initially irrigated with warm saline and aspirated dry. Evaluation was then begun to find the source. There was no active bilious/enteric drainage , no obvious source. I was able to evaluate the colorectal anastomosis, which appeared to be intact and no evidence of enteric contents around the anastomosis. The colon was run proximally up towards splenic flexure and fibrinous exudate was noted along the lateral wall. Any removable exudate was removed. The medial side of the colon was evaluated, no obvious enterotomy was noted there. The small bowel wall appeared normal and covered by a thickened omentum with a large amount of exudate on top of it. We gently mobilized some small bowel under-neath and a few pockets of bilious like material that were aspirated and this was checked for enterotomies or source of active drainage in this area, none were noted. Right side of the abdomen was then evaluated. Cecum and the ascending colon, all in the areas of trocar insertion sites were evaluated. No drainage in this area was noted. Any fibrinous exudate had been removed or cleaned and irrigated from this area. Some fluid was noted medial to the colon up towards the hepatic flexure, but again no active source of drainage. Stomach and upper abdomen all appeared normal without evidence of fibrinous exudate or drainage. Small bowel was run from the ligament of Treitz proximally and again no obvious drainage was noted and then a small knuckle of bowel down in the pelvis, in an area that was previously lysed of adhesions in the initial procedure, showed a 2-mm enterotomy with obvious exposed mucosa and a small amount of dark, thick bile like material was able to be expressed. This appeared to be the obvious source, although it may have been partially sealed as no further drainage was freely noted, only when expressed manually. Defect was closed with a 3-0 Vicryl and then oversewn in Lembert-type sutures with 3-0 silk sutures. The tags were left and a tongue of omentum was then placed over this and tied down the silk in an omental patch-type fashion. The abdomen was once again copiously irrigated with warm saline. An NG tube was placed and was found to be in good position in the stomach. Drains were brought through a separate stab incisions in the right and left lower quadrants. Right lower quadrant drain was placed down in the pelvis near the small bowel enterotomy and fluid collection. The left abdominal drain was placed along the left pericolic gutter. The right lower quadrant drain extended down towards the anastomosis as well. Once again, the abdomen was scanned. No other obvious injuries were noted. The midline fascia was closed with running #1 PDS suture. Wound was irrigated copiously with warm saline, closed loosely with vilma with a few Telfa niya and a Prevena vacuum sponge was placed over the midline incision. The drains were sutured in place with 0 silk suture. The patient tolerated the procedure well. She was extubated and taken to ICU in stable condition. [id number]/[facility] #: [id number] [facility] MEDICAL CENTERRamona
[2019-05-29 21:45] LABS: Hematocrit 31 % (35-47); Hemoglobin 10.3 g/dL (12.0-16.0); Mean Corpuscular HGB Conc 33 g/dL (31-36); Mean Corpuscular Hemoglobin 27 pg (27-31); Mean Corpuscular Volume 82 fL (80-97); Mean Platelet Volume 8.6 fL (7.4-10.4); Platelet Count 248 10^3/uL (150-450); Red Blood Count 3.85 10^6 /uL (3.70-4.87); Red Cell Distribution Width 17 % (10-15); White Blood Count 9.5 10^3/uL (3.5-10.8)
[2019-05-29 22:00] LABS: BUN/Creatinine Ratio 20.8 (8-20); EGFR African American 144.4 (>60); EGFR Non-African American 119.3 (>60); Potassium 3.2 mmol/L (3.5-5.0)
[2019-05-29 22:31] LABS: ABS Eosinophils 0.1 10^3/ul (0-0.6); ABS Lymphocytes 1.1 10^3/ul (1.0-4.8); ABS Monocytes 0.8 10^3/ul (0-0.8); ABS Neutrophils 7.4 10^3/ul (1.5-7.7); Eosinophil % 1.5 %; Lymphocyte % 11.8 %; Nucleated Red Blood Cells % 0.1
[2019-05-29] MEDS: Lidocaine 2% VISCOUS* 15 ML UDC TOPICAL PRN (23:14)
[2019-05-30] MEDS: Morphine INJ* 2 MG/ML 1 ML SYRINGE (TWO MG - NEW SYRINGE VERSION) IV PRN ×3 (01:13→07:00)
[2019-05-30] MEDS: Ondansetron INJ* 2 MG/ML VIAL IV PRN (03:06)
[2019-05-30] MEDS: fentaNYL* 50 MCG/ML 2 ML VIAL (100 MCG VIAL) IV SLOW PU PRN (03:57)
[2019-05-30] MEDS: Lactated Ringers 1000 ML Bag* 1,000 ML IV SCH ×3 (04:10→16:00)
[2019-05-30] MEDS: Heparin VIAL(*) 5000 UNITS/ML VIAL (FIVE THOUSAND) SUBCUT SCH ×3 (05:20→21:54)
[2019-05-30] MEDS: metroNIDAZOLE IV 500 MG/100ML* 500 MG/100 ML BAG IVPB SCH ×3 (05:27→21:54)
[2019-05-30] MEDS: Lidocaine 2% VISCOUS* 15 ML UDC TOPICAL PRN (06:21)
[2019-05-30 06:31] LABS: Hematocrit 31 % (35-47); Hemoglobin 10.2 g/dL (12.0-16.0); Mean Corpuscular HGB Conc 33 g/dL (31-36); Mean Corpuscular Hemoglobin 27 pg (27-31); Mean Corpuscular Volume 81 fL (80-97); Mean Platelet Volume 8.5 fL (7.4-10.4); Platelet Count 260 10^3/uL (150-450); Red Blood Count 3.78 10^6 /uL (3.70-4.87); Red Cell Distribution Width 17 % (10-15); White Blood Count 13.1 10^3/uL (3.5-10.8)
[2019-05-30 06:51] LABS: BUN/Creatinine Ratio 17.5 (8-20); Calcium 7.4 mg/dL (8.6-10.3); EGFR African American 132.8 (>60); EGFR Non-African American 109.7 (>60); Potassium 3.3 mmol/L (3.5-5.0)
[2019-05-30 06:53] LABS: ABS Eosinophils 0.2 10^3/ul (0-0.6); ABS Lymphocytes 0.8 10^3/ul (1.0-4.8); ABS Neutrophils 11.2 10^3/ul (1.5-7.7); Eosinophil % 1.2 %; Lymphocyte % 6.3 %; Nucleated Red Blood Cells % 0.2
[2019-05-30] MEDS ORDERED: Morphine PCA ADULT* 5 MG/ML 30 ML PCA SCH (09:00)
[2019-05-30] MEDS: Levothyroxine INJ* 100 MCG/5 ML VIAL IV SCH (09:46)
[2019-05-30] MEDS: SPIRIVA Respimat* (tiotropium) 2.5 mcg/inh Inhaler INH SCH (11:36)
--- NOTE | 2019-05-30 12:15 | PN ---
Progress Note - Progress Note Date of Service: 05/30/19 SOAP: Subjective: Pt seen and examined. Feeling better than yesterday. Thirsty. NO flatus Pt taken to OR yesterday for ex lap, washout, repair of SB enterotomy. Extubated and transferred to ICU post op. Good and NGT in place, closed suction drainage in place Objective: Temp Pulse Resp BP Pulse Ox 99.3 F 105 25 102/76 93 05/30/19 11:41 05/30/19 11:39 05/30/19 11:39 05/30/19 10:00 05/30/19 11:39 Intake & Output 05/29/19 05/30/19 05/30/19 22:59 06:59 14:59 Intake Total 998 1679 Output Total 500 1760 370 Balance 498 -81 -370 Weight 200 lb 6.403 oz a and o x3, mild distress lungs decr BS abdo: distented, edematous, tender diffusely PIETRO: R: bilious; L serous vac dressing in place ext: edema, no calf tenderness CT 05/29 reviewed Laboratory Last Values WBC 13.1 10^3/uL (3.5-10.8) H 05/30/19 06:15 RBC 3.78 10^6 /uL (3.70-4.87) 05/30/19 06:15 Hgb 10.2 g/dL (12.0-16.0) L 05/30/19 06:15 Hct 31 % (35-47) L 05/30/19 06:15 MCV 81 fL (80-97) 05/30/19 06:15 MCH 27 pg (27-31) 05/30/19 06:15 MCHC 33 g/dL (31-36) 05/30/19 06:15 RDW 17 % (10-15) H 05/30/19 06:15 Plt Count 260 10^3/uL (150-450) 05/30/19 06:15 MPV 8.5 fL (7.4-10.4) 05/30/19 06:15 Neut % (Auto) 85.0 % 05/30/19 06:15 Lymph % (Auto) 6.3 % 05/30/19 06:15 Catron % (Auto) 7.3 % 05/30/19 06:15 Eos % (Auto) 1.2 % 05/30/19 06:15 Baso % (Auto) 0.2 % 05/30/19 06:15 Absolute Neuts (auto) 11.2 10^3/ul (1.5-7.7) H 05/30/19 06:15 Absolute Lymphs (auto) 0.8 10^3/ul (1.0-4.8) L 05/30/19 06:15 Absolute Monos (auto) 1.0 10^3/ul (0-0.8) H 05/30/19 06:15 Absolute Eos (auto) 0.2 10^3/ul (0-0.6) 05/30/19 06:15 Absolute Basos (auto) 0.0 10^3/ul (0-0.2) 05/30/19 06:15 Absolute Nucleated RBC 0.0 10^3/ul 05/30/19 06:15 Immature Gran % 8.0 % (0-9) 05/30/19 06:15 Neutrophils % 75.0 % 05/30/19 06:15 Band Neutrophils % 5.0 % (0-8) 05/30/19 06:15 Lymphocytes % 5.0 % 05/30/19 06:15 Monocytes % 11.0 % 05/30/19 06:15 Eosinophils % 1.0 % 05/30/19 06:15 Myelocytes % 2.0 % (0-1) H 05/30/19 06:15 Promyelocytes % 1.0 % 05/30/19 06:15 Nucleated RBC % 0.2 05/30/19 06:15 Normal RBC Morphology Not Reportable 05/30/19 06:15 Anisocytosis 1+ 05/30/19 06:15 Sodium 135 mmol/L (135-145) 05/30/19 06:15 Potassium 3.3 mmol/L (3.5-5.0) L 05/30/19 06:15 Chloride 101 mmol/L (101-111) 05/30/19 06:15 Carbon Dioxide 27 mmol/L (22-32) 05/30/19 06:15 Anion Gap 7 mmol/L (2-11) 05/30/19 06:15 BUN 10 mg/dL (6-24) 05/30/19 06:15 Creatinine 0.57 mg/dL (0.51-0.95) 05/30/19 06:15 Est GFR ( Amer) 132.8 (>60) 05/30/19 06:15 Est GFR (Non-Af Amer) 109.7 (>60) 05/30/19 06:15 BUN/Creatinine Ratio 17.5 (8-20) 05/30/19 06:15 Glucose 77 mg/dL (70-100) 05/30/19 06:15 Lactic Acid 1.4 mmol/L (0.5-2.0) 05/29/19 11:42 Calcium 7.4 mg/dL (8.6-10.3) L 05/30/19 06:15 Phosphorus 1.6 mg/dL (2.5-5.0) L 05/29/19 12:11 Magnesium 1.7 mg/dL (1.9-2.7) L 05/29/19 12:11 Urine Color Yellow 05/29/19 13:30 Urine Appearance Clear 05/29/19 13:30 Urine pH 5.0 (5-9) 05/29/19 13:30 Ur Specific Henderson 1.047 (1.010-1.030) H 05/29/19 13:30 Urine Protein Negative (Negative) 05/29/19 13:30 Urine Ketones Trace (Negative) A 05/29/19 13:30 Urine Blood Negative (Negative) 05/29/19 13:30 Urine Nitrate Negative (Negative) 05/29/19 13:30 Urine Bilirubin Negative (Negative) 05/29/19 13:30 Urine Urobilinogen Negative (Negative) 05/29/19 13:30 Ur Leukocyte Esterase Negative (Negative) 05/29/19 13:30 Urine Glucose Negative (Negative) 05/29/19 13:30 Assessment: POD 5 robotic sigmoid colectomy; POD 1 takeback normotensive; mild improvement; bilious PIETRO Plan: NPO; NGT abx OOB possible TPN labs in am continue ICU; case d/w CCM ice chips ok; 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
[2019-05-30] MEDS ORDERED: Potassium Chlor TAB* 20 MEQ TAB.ER PO ONE (12:42)
--- NOTE | 2019-05-30 12:42 | PN ---
Date of Service: 05/30/19 Critical Care Services: sitting up in bed minimal drainage from PIETRO's (<50 cc) remains hemodynamically stable Vital Signs: Temp Pulse Resp BP SpO2 FiO2 99.3 F 105 25 102/76 93 05/30/19 11:41 05/30/19 11:39 05/30/19 11:39 05/30/19 10:00 05/30/19 11:39 Physical Exam: Gen: NAD HEENT:EOMI Lungs: CTA B.L Cardiac: RRR Abdomen: Decreased BS"s Extremities: No CHRIS Neuro:no focal deficits Fluid Balance (Past 24 Hours): I= O= Net Intake & Output 05/28/19 05/29/19 05/30/19 05/31/19 06:59 06:59 06:59 06:59 Intake Total 2575 4291 3720 Output Total 300 1050 2460 370 Balance 2275 3241 1260 -370 Weight 200 lb 6.403 oz Intake: IV Fluids 835 3731 2866 ABX - FLAGYL 7 Calcium gluconate 31 LR 835 3731 2755 Magnesium sulfate 18 sodium phosphate 55 IVPB 854 ABX - FLAGYL 199 Calcium gluconate 66 Magnesium sulfate 105 sodium phosphate 484 Oral 1740 560 0 Output: NG Tube Drainage Amount 475 PIETRO #1 160 70 PIETRO #2 65 Urine 300 1050 200 Good 1560 300 Other: Estimated Void Medium Medium Date of Last Bowel 05/29/19 Movement # Bowel Movements 1 Estimated Stool Amount Small # Voids 1 Labs: Laboratory Results - last 24 hr 05/29/19 05/29/19 05/29/19 12:11 13:30 21:14 WBC RBC Hgb Hct MCV MCH MCHC RDW Plt Count MPV Neut % (Auto) Lymph % (Auto) [place] % (Auto) Eos % (Auto) Baso % (Auto) Absolute Neuts (auto) Absolute Lymphs (auto) Absolute Monos (auto) Absolute Eos (auto) Absolute Basos (auto) Absolute Nucleated RBC Immature Gran % Neutrophils % Band Neutrophils % Lymphocytes % Monocytes % Eosinophils % Myelocytes % Promyelocytes % Nucleated RBC % Normal RBC Morphology Anisocytosis Sodium 132 L 137 Potassium 3.5 3.2 L Chloride 99 L 102 Carbon Dioxide 25 26 Anion Gap 8 9 BUN 14 11 Creatinine 0.46 L 0.53 Est GFR ( Amer) 170.0 144.4 Est GFR (Non-Af Amer) 140.5 119.3 BUN/Creatinine Ratio 30.4 H 20.8 H Glucose 94 86 Calcium 7.6 L 7.0 L Phosphorus 1.6 L Magnesium 1.7 L Urine Color Yellow Urine Appearance Clear Urine pH 5.0 Ur Specific [place] 1.047 H Urine Protein Negative Urine Ketones Trace A Urine Blood Negative Urine Nitrate Negative Urine Bilirubin Negative Urine Urobilinogen Negative Ur Leukocyte Esterase Negative Urine Glucose Negative 05/29/19 05/30/19 05/30/19 21:14 06:15 06:15 WBC 9.5 13.1 H RBC 3.85 3.78 Hgb 10.3 L 10.2 L Hct 31 L 31 L MCV 82 81 MCH 27 27 MCHC 33 33 RDW 17 H 17 H Plt Count 248 260 MPV 8.6 8.5 Neut % (Auto) 78.0 85.0 Lymph % (Auto) 11.8 6.3 [place] % (Auto) 8.6 7.3 Eos % (Auto) 1.5 1.2 Baso % (Auto) 0.1 0.2 Absolute Neuts (auto) 7.4 11.2 H Absolute Lymphs (auto) 1.1 0.8 L Absolute Monos (auto) 0.8 1.0 H Absolute Eos (auto) 0.1 0.2 Absolute Basos (auto) 0.0 0.0 Absolute Nucleated RBC 0.0 0.0 Immature Gran % 8.0 Neutrophils % 75.0 Band Neutrophils % 5.0 Lymphocytes % 5.0 Monocytes % 11.0 Eosinophils % 1.0 Myelocytes % 2.0 H Promyelocytes % 1.0 Nucleated RBC % 0.1 0.2 Normal RBC Morphology Not Reportable Anisocytosis 1+ Sodium 135 Potassium 3.3 L Chloride 101 Carbon Dioxide 27 Anion Gap 7 BUN 10 Creatinine 0.57 Est GFR ( Amer) 132.8 Est GFR (Non-Af Amer) 109.7 BUN/Creatinine Ratio 17.5 Glucose 77 Calcium 7.4 L Phosphorus Magnesium Urine Color Urine Appearance Urine pH Ur Specific [place] Urine Protein Urine Ketones Urine Blood Urine Nitrate Urine Bilirubin Urine Urobilinogen Ur Leukocyte Esterase Urine Glucose Impression: sepsis s/p robotic sigmoidectomy Hypokalemia, low mg and calcium post-op ileus hx asthma Plan: diet as per surgery continue to moniitor PIETRO output Replete lytes Critical Care Time: 33
[2019-05-30] MEDS ORDERED: Calcium Gluconate INJ* 2 GM in NS 0.9% 100 ML* 100 ML IV ONE (13:00)
[2019-05-30] MEDS ORDERED: Potassium Phosphate IV* 15 MMOLE in NS 0.9% 250 ML* 250 ML IVPB ONE (13:00)
[2019-05-30] MEDS ORDERED: Lactated Ringers 1000 ML Bag* 1,000 ML IV SCH (13:00)
[2019-05-30] MEDS: Levofloxacin 500 MG IVPREMIX(* 500 MG/100 ML BAG IVPB SCH (13:13)
[2019-05-30] MEDS: Levothyroxine TAB* 75 MCG TAB PO SCH (16:31)
[2019-05-31] MEDS: Lactated Ringers 1000 ML Bag* 1,000 ML IV SCH (02:59)
[2019-05-31 04:57] LABS: Hematocrit 27 % (35-47); Hemoglobin 8.6 g/dL (12.0-16.0); Mean Corpuscular HGB Conc 32 g/dL (31-36); Mean Corpuscular Hemoglobin 26 pg (27-31); Mean Corpuscular Volume 82 fL (80-97); Mean Platelet Volume 7.8 fL (7.4-10.4); Platelet Count 262 10^3/uL (150-450); Red Blood Count 3.26 10^6 /uL (3.70-4.87); Red Cell Distribution Width 17 % (10-15); White Blood Count 14.4 10^3/uL (3.5-10.8)
[2019-05-31 05:12] LABS: BUN/Creatinine Ratio 20.4 (8-20); Calcium 7.8 mg/dL (8.6-10.3); EGFR African American 158.1 (>60); EGFR Non-African American 130.6 (>60); Phosphorus 2.7 mg/dL (2.5-5.0); Potassium 3.5 mmol/L (3.5-5.0)
[2019-05-31] MEDS: Heparin VIAL(*) 5000 UNITS/ML VIAL (FIVE THOUSAND) SUBCUT SCH ×3 (05:26→21:53)
[2019-05-31] MEDS: metroNIDAZOLE IV 500 MG/100ML* 500 MG/100 ML BAG IVPB SCH ×3 (05:26→20:57)
[2019-05-31 05:34] LABS: ABS Eosinophils 0.2 10^3/ul (0-0.6); ABS Lymphocytes 1.1 10^3/ul (1.0-4.8); ABS Monocytes 1.4 10^3/ul (0-0.8); ABS Neutrophils 11.6 10^3/ul (1.5-7.7); Eosinophil % 1.7 %; Lymphocyte % 7.9 %; Nucleated Red Blood Cells % 0.1
[2019-05-31] MEDS: Levothyroxine INJ* 100 MCG/5 ML VIAL IV SCH (09:13)
[2019-05-31] MEDS: SPIRIVA Respimat* (tiotropium) 2.5 mcg/inh Inhaler INH SCH (11:22)
--- NOTE | 2019-05-31 11:24 | PN ---
Progress Note - Progress Note Date of Service: 05/31/19 SOAP: Subjective: Pt seen and examined. Feeling better than yesterday. Thirsty. No flatus. NGT fell out overnight. Objective: Temp Pulse Resp BP Pulse Ox 99.1 F 94 28 104/57 87 05/31/19 08:30 05/31/19 09:01 05/31/19 09:01 05/31/19 09:01 05/31/19 09:01 a and o x3,confortable lungs: rhonchi at bases b/l abdo: distented, edematous, tender diffusely JPs serous vac dressing in place- with dark output- changed today ext: edema, labs noted Assessment: POD 6 robotic sigmoid colectomy; POD 2 takeback for SB enterotomy- oversewed Plan: NPO abx OOB possible TPN labs in am transfer to floor ice chips ok RETURNED [employer]
[2019-05-31] MEDS: D5W 1/2 NS KCl 20 Meq 1000 ML* 1,000 ML IV SCH (12:03)
--- NOTE | 2019-05-31 12:03 | PN ---
Date of Service: 05/31/19 Critical Care Services: pain improved. sitting up in chair. 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 AO times 3, Heart: RRR, Lungs: Decreased Breath sounds, GI: +BSs, soft, NTP. No rebound or guarding. Neuro: No focal deficits. Extremities: No edema. Fluid Balance (Past 24 Hours): I= O= Net Intake & Output 05/29/19 05/30/19 05/31/19 06/01/19 06:59 06:59 06:59 06:59 Intake Total 4291 3720 5437 Output Total 1050 2460 1815 630 Balance 3241 1260 3622 -630 Weight 200 lb 6.403 oz Intake: IV Fluids 3731 2866 1660 ABX - FLAGYL 7 Calcium gluconate 31 113 LR 3731 2755 943 Magnesium sulfate 18 NS 604 sodium phosphate 55 IVPB 854 3437 ABX - FLAGYL 199 200 Calcium gluconate 66 LR 2972 Magnesium sulfate 105 sodium phosphate 484 265 Oral 560 0 340 Output: NG Tube Drainage Amount 475 575 PIETRO #1 160 115 PIETRO #2 65 80 Wound Vac 20 280 Urine 1050 200 Good 1560 1025 350 Other: Estimated Void Medium Date of Last Bowel 05/29/19 Movement # Bowel Movements 1 Estimated Stool Amount Small Labs: Laboratory Results - last 24 hr 05/31/19 05/31/19 05/31/19 04:46 04:46 04:46 WBC 14.4 H RBC 3.26 L Hgb 8.6 L Hct 27 L MCV 82 MCH 26 L MCHC 32 RDW 17 H Plt Count 262 MPV 7.8 Neut % (Auto) 80.8 Lymph % (Auto) 7.9 [place] % (Auto) 9.5 Eos % (Auto) 1.7 Baso % (Auto) 0.1 Absolute Neuts (auto) 11.6 H Absolute Lymphs (auto) 1.1 Absolute Monos (auto) 1.4 H Absolute Eos (auto) 0.2 Absolute Basos (auto) 0.0 Absolute Nucleated RBC 0.0 Nucleated RBC % 0.1 Sodium 138 Potassium 3.5 Chloride 100 L Carbon Dioxide 33 H Anion Gap 5 BUN 10 Creatinine 0.49 L Est GFR ( Amer) 158.1 Est GFR (Non-Af Amer) 130.6 BUN/Creatinine Ratio 20.4 H Glucose 86 Calcium 7.8 L Phosphorus 2.7 Magnesium 2.0 2.0 Impression: sepsis s/p robotic sigmoidectomy and POD SB Enterotomy Hypokalemia, hx asthma Plan: diet as per surgery continue to moniitor PIETRO output Replete lytes can transfer to floor D/W Surgery Critical Care Time: 44
[2019-05-31] MEDS: Levofloxacin 500 MG IVPREMIX(* 500 MG/100 ML BAG IVPB SCH (13:39)
[2019-06-01] MEDS: D5W 1/2 NS KCl 20 Meq 1000 ML* 1,000 ML IV SCH ×4 (01:02→22:03)
[2019-06-01] MEDS: metroNIDAZOLE IV 500 MG/100ML* 500 MG/100 ML BAG IVPB SCH ×3 (05:07→21:44)
[2019-06-01 05:08] LABS: Hematocrit 28 % (35-47); Hemoglobin 8.8 g/dL (12.0-16.0); Mean Corpuscular HGB Conc 32 g/dL (31-36); Mean Corpuscular Hemoglobin 26 pg (27-31); Mean Corpuscular Volume 82 fL (80-97); Platelet Count 320 10^3/uL (150-450); Red Blood Count 3.39 10^6 /uL (3.70-4.87); Red Cell Distribution Width 17 % (10-15); White Blood Count 20.1 10^3/uL (3.5-10.8)
[2019-06-01 05:13] LABS: INR 1.18 (0.82-1.09)
[2019-06-01 05:31] LABS: BUN/Creatinine Ratio 17.4 (8-20); Calcium 7.5 mg/dL (8.6-10.3); EGFR Non-African American 140.5 (>60); Phosphorus 2.1 mg/dL (2.5-5.0); Potassium 3.3 mmol/L (3.5-5.0)
[2019-06-01 05:40] LABS: ABS Basophils 0.1 10^3/ul (0-0.2); ABS Eosinophils 0.3 10^3/ul (0-0.6); ABS Lymphocytes 1.3 10^3/ul (1.0-4.8); ABS Monocytes 1.5 10^3/ul (0-0.8); Eosinophil % 1.5 %; Lymphocyte % 6.3 %
[2019-06-01] MEDS: Heparin VIAL(*) 5000 UNITS/ML VIAL (FIVE THOUSAND) SUBCUT SCH ×3 (06:12→21:42)
[2019-06-01] MEDS: Levothyroxine INJ* 100 MCG/5 ML VIAL IV SCH (10:54)
[2019-06-01] MEDS: Scopolamine 1.5 mg* PATCH TRANSDERM SCH (10:55)
[2019-06-01] MEDS ORDERED: Scopolamine PATCH Remove* 1 NOTE MISC PATCH OFF SCH (12:00)
[2019-06-01] MEDS: SPIRIVA Respimat* (tiotropium) 2.5 mcg/inh Inhaler INH SCH (12:49)
[2019-06-01] MEDS: Levofloxacin 500 MG IVPREMIX(* 500 MG/100 ML BAG IVPB SCH (12:49)
[2019-06-01] MEDS: Ondansetron INJ* 2 MG/ML VIAL IV PRN ×2 (13:02→20:26)
[2019-06-01] MEDS ORDERED: Metoclopramide IV* 5 MG/ML 2 ML VIAL IV PRN (15:26)
[2019-06-01] MEDS ORDERED: Magnesium Sulfate 2 GM IV* 2 GM/50 ML BAG IVPB ONE (15:56)
--- NOTE | 2019-06-01 16:47 | PN ---
Progress Note - Progress Note Date of Service: 06/01/19 SOAP: Subjective: pt in chair at bediside, has ambulated to nursing station earlier. C/O nausea now, no vomit. + Flatus [] Objective: Vital Signs Temp 97.9 F 06/01/19 15:19 Pulse 81 06/01/19 15:19 Resp 20 06/01/19 16:00 BP 120/67 06/01/19 15:19 Pulse Ox 95 06/01/19 16:00 Intake & Output 05/31/19 06/01/19 06/01/19 18:59 06:59 18:59 Intake Total 1332 1090 1285 Output Total 1160 961 290 Balance 172 129 995 Intake: IV Fluids 2617 011 4883 D5W 1/2 NS 20 meq KCL 860 506 3542 LR 564 NS 440 IVPB 110 215 ABX - FLAGYL 110 110 ABX - LEVOFLOXACIN 105 Oral 0 Output: PIETRO #1 45 20 PIETRO #2 66 20 Wound Vac 280 Good 880 850 250 Laboratory Tests 05/26/19 05/27/19 05/28/19 05:58 10:22 04:48 WBC 13.8 H 14.8 H 15.4 H Hgb Sodium Potassium Chloride Magnesium 05/28/19 05/29/19 05/29/19 04:48 04:51 04:51 WBC 10.3 Hgb Sodium 130 L 132 L Potassium Chloride 99 L 99 L Magnesium 05/30/19 05/31/19 06/01/19 06:15 04:46 04:41 WBC 13.1 H 14.4 H 20.1 H Hgb 10.2 L 8.6 L 8.8 L Sodium Potassium Chloride Magnesium 06/01/19 06/01/19 04:41 14:04 WBC Hgb Sodium Potassium 3.3 L Chloride Magnesium 1.5 L Sodium 137 mmol/L (135-145) 06/01/19 04:41 Potassium 3.3 mmol/L (3.5-5.0) L 06/01/19 04:41 BUN 8 mg/dL (6-24) 06/01/19 04:41 Creatinine 0.46 mg/dL (0.51-0.95) L 06/01/19 04:41 Calcium 7.5 mg/dL (8.6-10.3) L 06/01/19 04:41 Magnesium 1.5 mg/dL (1.9-2.7) L 06/01/19 14:04 PEX: General: In chair, appears uncomfortable but in NAD Chest: coarse BS's at bases B/L CVS: RRR Abd: midline vac dressing in tact, PIETRO's with serous output distended, non tender EXT: calves soft, non tender Assessment:58 yo female, POD 7 S/P robotic sigmoid colectomy, POD 3 S/P return to OR for Small Bowel enterotomy O2 sats low 90's on 4 litres NC, IV ABX day day 4, WBC now 20, continues NPO [] Plan: CXR tonight 2 views, ok for sips of clears, replace lytes, AM Labs, scd's , incentive spirometry, observation. Above d/w Dr Ponce []
--- NOTE | 2019-06-01 16:48 | PN ---
Progress Note - Progress Note Date of Service: 06/01/19 SOAP: Subjective: []no flatus, ? some liquid bm today, asking for liquids Objective: []pt seen this am and this afternoon Temp Pulse Resp BP Pulse Ox 97.9 F 81 20 120/67 95 06/01/19 15:19 06/01/19 15:19 06/01/19 16:00 06/01/19 15:19 06/01/19 16:00 Intake & Output 05/30/19 05/31/19 06/01/19 06/02/19 06:59 06:59 06:59 06:59 Intake Total 3720 5437 2422 1285 Output Total 2460 1815 2121 290 Balance 1260 3622 301 995 Weight 200 lb 6.403 oz Intake: IV Fluids 2866 1660 2312 1070 ABX - FLAGYL 7 Calcium gluconate 31 113 D5W 1/2 NS 20 meq KCL 1308 1070 LR 2755 943 564 Magnesium sulfate 18 NS 604 440 sodium phosphate 55 IVPB 854 3437 110 215 ABX - FLAGYL 199 200 110 110 ABX - LEVOFLOXACIN 105 Calcium gluconate 66 LR 2972 Magnesium sulfate 105 sodium phosphate 484 265 Oral 0 340 0 Output: NG Tube Drainage Amount 475 575 PIETRO #1 160 115 45 20 PIETRO #2 65 80 66 20 Wound Vac 20 280 Urine 200 Good 1560 1025 1730 250 Laboratory Last Values WBC 20.1 10^3/uL (3.5-10.8) H 06/01/19 04:41 RBC 3.39 10^6 /uL (3.70-4.87) L 06/01/19 04:41 Hgb 8.8 g/dL (12.0-16.0) L 06/01/19 04:41 Hct 28 % (35-47) L 06/01/19 04:41 MCV 82 fL (80-97) 06/01/19 04:41 MCH 26 pg (27-31) L 06/01/19 04:41 MCHC 32 g/dL (31-36) 06/01/19 04:41 RDW 17 % (10-15) H 06/01/19 04:41 Plt Count 320 10^3/uL (150-450) 06/01/19 04:41 MPV 8.0 fL (7.4-10.4) 06/01/19 04:41 Neut % (Auto) 84.4 % 06/01/19 04:41 Lymph % (Auto) 6.3 % 06/01/19 04:41 [place] % (Auto) 7.5 % 06/01/19 04:41 Eos % (Auto) 1.5 % 06/01/19 04:41 Baso % (Auto) 0.3 % 06/01/19 04:41 Absolute Neuts (auto) 17.0 10^3/ul (1.5-7.7) H 06/01/19 04:41 Absolute Lymphs (auto) 1.3 10^3/ul (1.0-4.8) 06/01/19 04:41 Absolute Monos (auto) 1.5 10^3/ul (0-0.8) H 06/01/19 04:41 Absolute Eos (auto) 0.3 10^3/ul (0-0.6) 06/01/19 04:41 Absolute Basos (auto) 0.1 10^3/ul (0-0.2) 06/01/19 04:41 Absolute Nucleated RBC 0.0 10^3/ul 06/01/19 04:41 Immature Gran % 8.0 % (0-9) 05/30/19 06:15 Neutrophils % 75.0 % 05/30/19 06:15 Band Neutrophils % 5.0 % (0-8) 05/30/19 06:15 Lymphocytes % 5.0 % 05/30/19 06:15 Monocytes % 11.0 % 05/30/19 06:15 Eosinophils % 1.0 % 05/30/19 06:15 Myelocytes % 2.0 % (0-1) H 05/30/19 06:15 Promyelocytes % 1.0 % 05/30/19 06:15 Nucleated RBC % 0.0 06/01/19 04:41 Normal RBC Morphology Not Reportable 05/30/19 06:15 Anisocytosis 1+ 05/30/19 06:15 INR (Anticoag Therapy) 1.18 (0.82-1.09) H 06/01/19 04:41 Sodium 137 mmol/L (135-145) 06/01/19 04:41 Potassium 3.3 mmol/L (3.5-5.0) L 06/01/19 04:41 Chloride 101 mmol/L (101-111) 06/01/19 04:41 Carbon Dioxide 34 mmol/L (22-32) H 06/01/19 04:41 Anion Gap 2 mmol/L (2-11) 06/01/19 04:41 BUN 8 mg/dL (6-24) 06/01/19 04:41 Creatinine 0.46 mg/dL (0.51-0.95) L 06/01/19 04:41 Est GFR ( Amer) 170.0 (>60) 06/01/19 04:41 Est GFR (Non-Af Amer) 140.5 (>60) 06/01/19 04:41 BUN/Creatinine Ratio 17.4 (8-20) 06/01/19 04:41 Glucose 124 mg/dL (70-100) H 06/01/19 04:41 Lactic Acid 1.4 mmol/L (0.5-2.0) 05/29/19 11:42 Calcium 7.5 mg/dL (8.6-10.3) L 06/01/19 04:41 Phosphorus 2.1 mg/dL (2.5-5.0) L 06/01/19 04:41 Magnesium 1.5 mg/dL (1.9-2.7) L 06/01/19 14:04 Urine Color Yellow 05/29/19 13:30 Urine Appearance Clear 05/29/19 13:30 Urine pH 5.0 (5-9) 05/29/19 13:30 Ur Specific [place] 1.047 (1.010-1.030) H 05/29/19 13:30 Urine Protein Negative (Negative) 05/29/19 13:30 Urine Ketones Trace (Negative) A 05/29/19 13:30 Urine Blood Negative (Negative) 05/29/19 13:30 Urine Nitrate Negative (Negative) 05/29/19 13:30 Urine Bilirubin Negative (Negative) 05/29/19 13:30 Urine Urobilinogen Negative (Negative) 05/29/19 13:30 Ur Leukocyte Esterase Negative (Negative) 05/29/19 13:30 Urine Glucose Negative (Negative) 05/29/19 13:30 abvdomen soft, drains serous drainage Assessment: []stable awaiting bowel function elevated wbc, ? etiology Plan: []change dressing tomorrow cont iv, abx follow wbc
[2019-06-01] MEDS: KCL 20 MEQ/100 ML IVPREMIX* 20 MEQ/100 ML BAG IV SCH ×2 (18:08→21:48)
--- NOTE | 2019-06-01 19:09 | CONSULT ---
Subjective Date of Service: 06/01/19 Interval History: Admission Date: 05/25/19 Consult date Service: Surgery/Dr. Ponce PCP Dori Wilburn NP CC: Diverticulitis surgery Reason for consult: Abnormal EKG HISTORY OF PRESENT ILLNESS: Kim Mendoza is a 58-year-old woman with recurrent diverticulitis was admitted for laparoscopic robotic sigmoid colectomy. She required re-operation on 05/29/2019 for intraabdominal infection/sepsis secondary to bowel perforation that required repair. She is now recovering. She is on telemetry. She was found with a significantly abnormal EKG today after telemetry monitoring was abnormal. The telemetry was reviewed, there were PVC and no arrhythmias. Patient complains of abdomen pain. Her diet was advanced to clears today. The pain makes it difficult to catch her breath. She has no chest discomfort. She denies any history of sustained palpitations, syncope or seizure. PAST MEDICAL HISTORY: Asthma obstructive sleep apnea (on CPAP) hypothyroidism prior tobacco use PAST SURGICAL HISTORY: right foot surgery bilateral shoulder surgery for rotator cuff repair bilateral carpal tunnel release right knee arthroscopy laparoscopic cholecystectomy. ALLERGIES: ASPIRIN (GI side effects only), HYDROCODONE (hives), (patient has tolerated oxycodone and tramadol), PENICILLIN (GI side effects only). FAMILY HISTORY: Positive for colorectal cancer in her brother who is diagnosed in his late 40s. Father age 57, arterosclerosis was listed on certificate. No other first or second degree relative with early unexplained sudden SOCIAL HISTORY: The patient is . She has 2 children. Master's degree. She is a former smoker of up to one half pack per day for 15 to 20 years, quit in 2017. Occasional alcohol, no drugs Medications Active Medications: Heparin Sodium (Porcine) (Heparin Vial(*)) 5,000 units SUBCUT Q8HR [facility] Last Admin: 06/01/19 15:26 Dose: 5,000 units Heparin Sodium (Porcine) (Heparin Flush Picc/Ml/Cvc(*)) 1 - 3 ml FLUSH 0600, 1800 [facility]; Protocol Levofloxacin/Dextrose (Levaquin 500 Mg Ivpremix(*)) 500 mg in 100 mls @ 100 mls /hr IVPB Q24H [facility]; Protocol Last Admin: 06/01/19 12:49 Dose: 100 mls/hr Metronidazole/Sodium Chloride (Flagyl 500 Mg Ivpb*) 500 mg in 100 mls @ 100 mls /hr IVPB Q8H [facility] Last Admin: 06/01/19 14:51 Dose: 100 mls/hr Morphine Sulfate (Morphine Correspondence Specialist Adult* 5 Mg/Ml) 30 mls @ 0 mls/hr MEDICAL PRACTICE ADMINISTRATOR .change Q24H [facility]; Protocol Last Admin: 05/30/19 09:46 Dose: 1 mls/hr Potassium Chloride/Dextrose (D5w 1/2 Ns Kcl 20 Meq 1000 Ml*) 1,000 mls @ 100 mls/hr IV .PER RATE [facility] Last Admin: 06/01/19 14:51 Dose: 100 mls/hr Potassium Chloride (Potassium Chloride 20 Meq/100 Ml Ivpremix*) 20 meq in 100 mls @ 50 mls/hr IV Q2H [facility] Stop: 06/01/19 19:59 Last Admin: 06/01/19 18:08 Dose: 50 mls/hr Levothyroxine Sodium (Synthroid Inj*) 37.5 mcg IV DAILY [facility] Last Admin: 06/01/19 10:54 Dose: 37.5 mcg Lidocaine (Xylocaine 2% Viscous*) 1 ml TOPICAL TID PRN PRN Reason: PAIN - MILD Last Admin: 05/30/19 06:21 Dose: 1 ml Metoclopramide HCl (Reglan Iv*) 10 mg IV Q6H PRN PRN Reason: NAUSEA/VOMITING Last Admin: 06/01/19 15:44 Dose: 10 mg Ondansetron HCl (Zofran Inj*) 4 mg IV Q4H PRN PRN Reason: NAUSEA/VOMITING Last Admin: 06/01/19 13:02 Dose: 4 mg Pharmacy Profile Note (Scopolamine Patch Remove*) 1 note PATCH OFF .AFTER 72 HOURS [facility] Scopolamine (Transderm-Scop 1.5 Mg Patch*) 1 patch TRANSDERM Q72H [facility] Last Admin: 06/01/19 10:55 Dose: 1 patch Tiotropium [place] (Spiriva Respimat 2.5 Mcg) 2 puff INH QAM [facility] Last Admin: 06/01/19 12:49 Dose: 2 puff Home Medications: Levothyroxine TAB* [Synthroid 75 MCG TAB*] 75 mcg PO QAM 09/16/17 [History Confirmed 05/25/19] Budesonide/Formote 80/4.5(NF) [Symbicort 80/4.5 (NF)] 2 puff INH BID PRN [History Confirmed 05/25/19] Tiotropium [place] [Spiriva Respimat] 2 puff INH QAM 05/18/19 [History Confirmed 05/25/19] Review of Systems - Measurements Intake and Output: Intake and Output Last 24 Hours 05/30/19 05/31/19 06/01/19 06/02/19 06:59 06:59 06:59 06:59 Intake Total 3720 5437 2422 1285 Output Total 2460 1815 2121 290 Balance 1260 3622 301 995 Weight 200 lb 6.403 oz Intake: IV Fluids 2866 1660 2312 1070 ABX - FLAGYL 7 Calcium gluconate 31 113 D5W 1/2 NS 20 meq KCL 1308 1070 LR 2755 943 564 Magnesium sulfate 18 NS 604 440 sodium phosphate 55 IVPB 854 3437 110 215 ABX - FLAGYL 199 200 110 110 ABX - LEVOFLOXACIN 105 Calcium gluconate 66 LR 2972 Magnesium sulfate 105 sodium phosphate 484 265 Oral 0 340 0 Output: NG Tube Drainage Amount 475 575 PIETRO #1 160 115 45 20 PIETRO #2 65 80 66 20 Wound Vac 20 280 Urine 200 Good 1560 1025 1730 250 - Review of Systems Review of Systems Statement: All other review of systems negative, unless stated above. Objective Vital Signs: Temp Pulse Resp BP Pulse Ox 97.9 F 81 20 120/67 95 06/01/19 15:19 06/01/19 15:19 06/01/19 18:00 06/01/19 15:19 06/01/19 18:00 Oxygen Devices in Use Now: Nasal Cannula Appearance: patient appears in pain and ill and but acutely toxic appearing Ears/Nose/Mouth/Throat: Clear Oropharnyx, Mucous Membranes Moist Neck: Trachea Midline, - - uncertain jvp Respiratory: Symmetrical Chest Expansion and Respiratory Effort, - - poor inspiratory effort without obvious rales or wheeze Cardiovascular: RRR, - - uncertain jvp, no significant murmur Abdominal: - - abdomen wound not directly examined. abdomen is tender without rigidity Extremities: No Clubbing, Cyanosis, - - 1+ edema b/l legs Skin: No Rash or Ulcers Neurological: Alert and Oriented x 3 Laboratory Results: 06/01/19 04:41 06/01/19 04:41 INR (Anticoag Therapy) 1.18 (0.82-1.09) H 06/01/19 04:41 mg 1.5 Diagnostic Imaging: CT scan 05/29/2019 IMPRESSION: 1. NO PULMONARY ARTERIAL FILLING DEFECT TO SUGGEST PULMONARY EMBOLISM. 2. THERE IS A PARTIALLY LOCULATED FLUID COLLECTION OF THE LOWER ANTERIOR ABDOMEN MEASURING UP TO 13.2 CM IN SIZE, WITH SUGGESTION OF A WELL-DEFINED WALL INFERIORLY CONCERNING FOR DEVELOPING ABSCESS. 3. ASCITES. 4. THERE IS FREE INTRAPERITONEAL GAS CONSISTENT WITH RECENT POSTOPERATIVE STATE. 5. THERE IS EXTENSIVE SUBCUTANEOUS EDEMA AND SUBCUTANEOUS EMPHYSEMA. 6. BILATERAL, LEFT GREATER THAN RIGHT, PLEURAL EFFUSIONS. 7. FATTY INFILTRATION OF THE LIVER. 8. DIVERTICULOSIS. Assessment/Plan 1. Long QTc - with TW inversions - In setting of low Mg, K+ and multiple contributing medications - Repeat today after beginning IV electrolytes already showing some improvement - Troponin normal and no chest discomfort - Agree with replacement of Mg to 2 or greater and K 4 or greater, recheck Mg now (ordered) - Check ionized calcium (ordered), would replace IV if low - Check echocardiogram (ordered) - Repeat an EKG this evening and tomorrow Am (ordered) - D/c reglan and zofran (ordered) until EKG normalizes As being used to treat potentially life threatening infection, the benefits of continued flagyl and levaquin at this point particularly in the setting of above changes appears to outweigh the risk. If qt remains long after above changes may need to reconsider
[2019-06-01 19:57] LABS: Magnesium 2.4 mg/dL (1.9-2.7)
[2019-06-01 19:59] LABS: Troponin I 0.02 ng/mL (<0.04)
[2019-06-01 21:20] LABS: Potassium 3.5 mmol/L (3.5-5.0)
[2019-06-01 21:34] LABS: Urine Appearance Turbid; Urine Bacteria Absent (Absent); Urine Bilirubin Negative (Negative); Urine Blood 1+ (Negative); Urine Color Yellow; Urine Glucose Negative (Negative); Urine Ketones Negative (Negative); Urine Nitrite Negative (Negative); Urine Protein Negative (Negative); Urine Red Blood Cell 3+(>10/hpf) (Absent); Urine Specific Gravity 1.027 (1.010-1.030); Urine Urobilinogen Negative (Negative); Urine White Blood Cell Absent (Absent)
[2019-06-01] MEDS ORDERED: KCL 20 MEQ/100 ML IVPREMIX* 20 MEQ/100 ML BAG IV ONE (23:59)
[2019-06-02] MEDS: metroNIDAZOLE IV 500 MG/100ML* 500 MG/100 ML BAG IVPB SCH ×3 (04:54→19:57)
[2019-06-02 05:10] LABS: Hematocrit 28 % (35-47); Hemoglobin 9.1 g/dL (12.0-16.0); Mean Corpuscular HGB Conc 32 g/dL (31-36); Mean Corpuscular Hemoglobin 26 pg (27-31); Mean Corpuscular Volume 81 fL (80-97); Mean Platelet Volume 7.4 fL (7.4-10.4); Platelet Count 336 10^3/uL (150-450); Red Blood Count 3.46 10^6 /uL (3.70-4.87); Red Cell Distribution Width 17 % (10-15); White Blood Count 29.5 10^3/uL (3.5-10.8)
[2019-06-02 05:27] LABS: BUN/Creatinine Ratio 20.5 (8-20); Calcium 7.4 mg/dL (8.6-10.3); EGFR African American 205.7 (>60); Magnesium 2.2 mg/dL (1.9-2.7)
[2019-06-02 05:29] LABS: Troponin I 0.02 ng/mL (<0.04)
[2019-06-02] MEDS: Heparin VIAL(*) 5000 UNITS/ML VIAL (FIVE THOUSAND) SUBCUT SCH ×3 (05:40→20:30)
[2019-06-02 06:11] LABS: ABS Basophils 0.1 10^3/ul (0-0.2); ABS Lymphocytes 1.7 10^3/ul (1.0-4.8); ABS Monocytes 1.6 10^3/ul (0-0.8); ABS Neutrophils 26.2 10^3/ul (1.5-7.7); Lymphocyte % 5.6 %
[2019-06-02] MEDS ORDERED: Perflutren Lipid Microsphere* 3 ML VIAL ONE (08:07)
--- NOTE | 2019-06-02 08:48 | PN ---
Progress Note - Progress Note Date of Service: 06/02/19 SOAP: Subjective: c/o nausea, sob [] Objective: Vital Signs: Temp Pulse Resp BP Pulse Ox 97.7 F 81 20 130/80 94 06/02/19 07:28 06/02/19 07:28 06/02/19 07:28 06/02/19 07:28 06/02/19 07:28 Sodium 137 mmol/L (135-145) 06/02/19 05:02 Potassium 4.0 mmol/L (3.5-5.0) 06/02/19 05:02 BUN 8 mg/dL (6-24) 06/02/19 05:02 Creatinine 0.39 mg/dL (0.51-0.95) L 06/02/19 05:02 Calcium 7.4 mg/dL (8.6-10.3) L 06/02/19 05:02 Magnesium 2.2 mg/dL (1.9-2.7) 06/02/19 05:02 WBC 05/26/19 05/27/19 05/28/19 05:58 10:22 04:48 WBC 13.8 10^3/uL H 10^3/uL 14.8 10^3/uL H 10^3/uL 15.4 10^3/uL H 10^3/uL (3.5-10.8) (3.5-10.8) (3.5-10.8) 05/29/19 05/29/19 05/30/19 04:51 21:14 06:15 WBC 10.3 10^3/uL 10^3/uL 9.5 10^3/uL 10^3/uL 13.1 10^3/uL H 10^3/uL (3.5-10.8) (3.5-10.8) (3.5-10.8) 05/31/19 06/01/19 06/02/19 04:46 04:41 05:02 WBC 14.4 10^3/uL H 10^3/uL 20.1 10^3/uL H 10^3/uL 29.5 10^3/uL H 10^3/uL (3.5-10.8) (3.5-10.8) (3.5-10.8) PEX: Gen: in bed , washcloth on forehead, looks uncomfortable Chest: CTA, shallow breathing CVS: RRR Abd: distended, non tender, vac dressing with some fluid visible at distal end dark output in container, PIETRO's with serous output, + leaking around drains - BS's : fiore with pink tinged urine Ext: calves non tender [] Assessment: 58 yo female POD 8 s/p sigmoid colectomy, POD 4 s/p return to OR for exploration with enterotomy and oversew. ABX day 4 Levaquin and Flagyl, Cardiology consulted due to EKG changes. WBC now 29.5(20.1, 14.4, 13.1) Pt's condition has deteriorated. Echo was being done, CXR done [] Plan: Transfer to ICU, CT scan Abd/Pel to r/o abscess. Oral contrast unable to be tolerated at this time. F/U CXR and Echo Above d/w ICU, Dr Ponce. []
--- NOTE | 2019-06-02 10:31 | ECHO ---
*[facility]* [place] [address] Fax #: [phone] Transthoracic Echocardiogram Patient: Shanda Mendoza : 1960 Study Date: 06/02/2019 Age: 58 Gender: F HR: 78 bpm Height: 63 in /160 cm BSA: 1.93 m^2 Weight: 199.6 lb /90.7 kg BMI: 35.4 kg/m^2 *Records Management Analyst: * Graciela Sands [facility] *Referring Physician: * Jorge Hinojosa MD *Reading Physician: * Niko Argueta MD Indications: Abnormal EKG. History: Risk factors: Former tobacco use. Conclusions Summary: - Left ventricle: Systolic function is normal. The estimated ejection fraction is 60-65%. Wall motion is normal; there are no regional wall motion abnormalities. - Mitral valve: There is no significant regurgitation. - Aortic valve: There is no evidence of stenosis. - Tricuspid valve: There is no significant regurgitation. - Pulmonary arteries: Systolic pressure can not be accurately estimated. - Study data: No prior study is available for comparison. Study data: Transthoracic echocardiogram. Procedure: Transthoracic echocardiography was performed. Image quality was adequate. The study was technically limited due to restricted patient mobility. Intravenous Definity , 2 mls was administered. Complete 2D, spectral Doppler, and color flow Doppler. Location: Bedside. Patient status: Inpatient. Patient room number: 335. No prior study is available for comparison. Rhythm: Normal sinus rhythm. Findings Left ventricle: The cavity size is normal. Wall thickness is normal. Systolic function is normal. The estimated ejection fraction is 60-65%. Wall motion is normal; there are no regional wall motion abnormalities. Left ventricular diastolic function parameters are normal. Right ventricle: The cavity size is normal. Systolic function is normal. Left atrium: The atrium is normal in size. Right atrium: Not well visualized. Mitral valve: The leaflets are normal thickness. There is no evidence of stenosis. There is no significant regurgitation. Aortic valve: The valve is trileaflet. The leaflets are normal thickness. There is no evidence of stenosis. There is no significant regurgitation. Tricuspid valve: The leaflets are normal thickness. There is no evidence of stenosis. There is no significant regurgitation. Pulmonic valve: The leaflets are normal thickness. There is no evidence of stenosis. There is trace regurgitation. Aorta: The aortic root appears normal. The aortic arch appears normal. Pericardium: There is no significant pericardial effusion. Pulmonary arteries: The main pulmonary artery is normal-sized. Systolic pressure can not be accurately estimated. Systemic veins: Inferior vena cava: Not well visualized. Measurements Left ventricle Value Ref Aortic valve Value Ref MAYELA, LAX 5.0 cm 3.8 - 5.2 Jacqueline diam, ED 2.1 cm ---- ESD, LAX 2.8 cm 2.2 - 3.5 Peak v, S 1.32 m/sec ---- FS, LAX 45 % 27 - 45 VTI, S 23.9 cm ---- PW, ED, LAX (H) 1.0 cm 0.6 - 0.9 Mean grad, S 3.0 mm Hg ---- EF (H) 76 % 54 - 74 Peak grad, S 7.0 mm Hg ---- E', lat jacqueline, TDI (L) 9.7 cm/sec >=10.0 E/e', lat jacqueline, TDI 8 --------- Mitral valve Value Ref E', med jacqueline, TDI 9.3 cm/sec >=7.0 Peak E 0.8 m/sec ---- E/e', med jacqueline, TDI 9 --------- Peak A 0.55 m/sec ---- E', avg, TDI 9.5 cm/sec --------- Decel time 124 ms ---- E/e', avg, TDI 8 <=14 Peak grad, D 2.5 mm Hg ---- Peak E/A ratio 1.4 ---- LVOT Value Ref Peak case, S 1.01 m/sec --------- Pulmonic valve Value Ref Mean grad, S 2 mm Hg --------- Peak v, S 0.81 m/sec ---- Peak grad, S 3.0 mm Hg ---- Ventricular septum Value Ref IVS, ED 0.8 cm 0.6 - 0.9 Aortic root Value Ref Root diam 2.9 cm <4.1 Right ventricle Value Ref MAYELA, LAX 2.8 cm --------- Ascending aorta Value Ref AAo AP diam, S 2.8 cm ---- Left atrium Value Ref ML dim, A4C 3.8 cm --------- Aortic arch Value Ref SI dim, A4C 4.1 cm --------- Arch diam 3.0 cm ---- Right atrium Value Ref Decending aorta Value Ref Estimated RAP 8 mm Hg --------- David peak case 0.92 m/sec ---- Legend: (L) and (H) rom values outside specified reference range. Prepared and electronically signed by Niko Argueta MD 06/02/2019 10:31
[2019-06-02] MEDS ORDERED: Ondansetron INJ* 2 MG/ML VIAL ONE (10:35)
[2019-06-02] MEDS: Ondansetron INJ* 2 MG/ML VIAL IV PRN ×2 (10:37→19:53)
--- NOTE | 2019-06-02 11:09 | PN ---
Date of Service: 06/02/19 Critical Care Services: patient transferred from surgical service to ICU for worsening abdominal pains and increased WBC count with left shift. Remains AF. Hemodynamically stable. Vital Signs: Temp Pulse Resp BP SpO2 FiO2 97.6 F 84 28 141/87 92 06/02/19 09:32 06/02/19 09:32 06/02/19 09:32 06/02/19 09:32 06/02/19 09:32 Physical Exam: Gen:AO times 3 HEENT:EOMI Lungs:CTA B/L Cardiac: RRR Abdomen: Tender to palpation. No rebound or guarding Extremities: No CHRIS Neuro: No focal deficits Fluid Balance (Past 24 Hours): I= O= Net Intake & Output 05/31/19 06/01/19 06/02/19 06/03/19 06:59 06:59 06:59 06:59 Intake Total 5437 2422 2249 Output Total 1815 2121 800 270 Balance 3622 301 1449 -270 Weight 221 lb 14.4 oz Intake: IV Fluids 1660 2312 1654 Calcium gluconate 113 D5W 1/2 NS 20 meq KCL 1308 1654 LR 943 564 NS 604 440 IVPB 3437 110 415 ABX - FLAGYL 200 110 210 ABX - LEVOFLOXACIN 105 LR 2972 Potassium 100 sodium phosphate 265 Oral 340 180 Output: NG Tube Drainage Amount 575 PIETRO #1 115 45 50 15 PIETRO #2 80 66 50 5 Wound Vac 20 280 250 Good 1025 1730 700 Labs: Laboratory Results - last 24 hr 06/01/19 06/01/19 06/01/19 14:04 19:30 20:50 WBC RBC Hgb Hct MCV MCH MCHC RDW Plt Count MPV Neut % (Auto) Lymph % (Auto) [place] % (Auto) Eos % (Auto) Baso % (Auto) Absolute Neuts (auto) Absolute Lymphs (auto) Absolute Monos (auto) Absolute Eos (auto) Absolute Basos (auto) Absolute Nucleated RBC Nucleated RBC % Sodium Potassium 3.5 Chloride Carbon Dioxide Anion Gap BUN Creatinine Est GFR ( Amer) Est GFR (Non-Af Amer) BUN/Creatinine Ratio Glucose Calcium Ionized Calcium Magnesium 1.5 L 2.4 Troponin I 0.02 Urine Color Yellow Urine Appearance Turbid Urine pH 5.0 Ur Specific [place] 1.027 Urine Protein Negative Urine Ketones Negative Urine Blood 1+ A Urine Nitrate Negative Urine Bilirubin Negative Urine Urobilinogen Negative Ur Leukocyte Esterase 1+ A Urine WBC (Auto) Absent Urine RBC (Auto) 3+(>10/hpf) A Amorphous Crystals Present A Urine Bacteria Absent Urine Glucose Negative 06/02/19 06/02/19 06/02/19 05:02 05:02 05:02 WBC 29.5 H RBC 3.46 L Hgb 9.1 L Hct 28 L MCV 81 MCH 26 L MCHC 32 RDW 17 H Plt Count 336 MPV 7.4 Neut % (Auto) 88.8 Lymph % (Auto) 5.6 [place] % (Auto) 5.3 Eos % (Auto) 0.0 Baso % (Auto) 0.3 Absolute Neuts (auto) 26.2 H Absolute Lymphs (auto) 1.7 Absolute Monos (auto) 1.6 H Absolute Eos (auto) 0.0 Absolute Basos (auto) 0.1 Absolute Nucleated RBC 0.0 Nucleated RBC % 0.0 Sodium 137 Potassium 4.0 Chloride 102 Carbon Dioxide 31 Anion Gap 4 BUN 8 Creatinine 0.39 L Est GFR ( Amer) 205.7 Est GFR (Non-Af Amer) 170.0 BUN/Creatinine Ratio 20.5 H Glucose 133 H Calcium 7.4 L Ionized Calcium 1.05 L Magnesium 2.2 Troponin I 0.02 Urine Color Urine Appearance Urine pH Ur Specific [place] Urine Protein Urine Ketones Urine Blood Urine Nitrate Urine Bilirubin Urine Urobilinogen Ur Leukocyte Esterase Urine WBC (Auto) Urine RBC (Auto) Amorphous Crystals Urine Bacteria Urine Glucose Impression: s/p sigmoid colectomy POD #8 POD 4 s/p return to OR for exploration with enterotomy nl LVEF on TTE Plan: CT scan of abdomen to r/o abscess may need to go back to OR ID input for further ABX? --Remains on Levofloxocin and CX's NGTD Critical Care Time: 56 addendum: s/p NGT placement now and abdominal pains much improved
[2019-06-02] MEDS ORDERED: Calcium Gluconate INJ* 1 GM in NS 0.9% 50 ML* 50 ML IVPB ONE (12:00)
[2019-06-02] MEDS: Metoclopramide IV* 5 MG/ML 2 ML VIAL IV PRN ×2 (12:14→18:54)
[2019-06-02 12:39] LABS: Hematocrit 28 % (35-47); Mean Corpuscular HGB Conc 33 g/dL (31-36); Mean Corpuscular Hemoglobin 27 pg (27-31); Mean Corpuscular Volume 81 fL (80-97); Mean Platelet Volume 7.6 fL (7.4-10.4); Platelet Count 347 10^3/uL (150-450); Red Blood Count 3.41 10^6 /uL (3.70-4.87); Red Cell Distribution Width 17 % (10-15)
[2019-06-02 12:40] LABS: ABS Basophils 0.1 10^3/ul (0-0.2); ABS Lymphocytes 1.7 10^3/ul (1.0-4.8); ABS Monocytes 1.3 10^3/ul (0-0.8); ABS Neutrophils 27.8 10^3/ul (1.5-7.7); Eosinophil % 0.1 %; Lymphocyte % 5.5 %
[2019-06-02] MEDS: Levothyroxine INJ* 100 MCG/5 ML VIAL IV SCH (12:48)
[2019-06-02 12:56] LABS: Albumin/Globulin Ratio 0.8 (1-3); BUN/Creatinine Ratio 21.6 (8-20); EGFR African American 218.6 (>60); EGFR Non-African American 180.7 (>60); Globulin 2.5 g/dL (2-4); Magnesium 1.9 mg/dL (1.9-2.7); Potassium 4.7 mmol/L (3.5-5.0); Total Bilirubin 0.5 mg/dL (0.2-1.0); Total Protein 4.5 g/dL (6.4-8.9)
[2019-06-02] MEDS ORDERED: NS 0.9% 500 ML* 500 ML IV ONE (12:56)
[2019-06-02] MEDS: Levofloxacin 500 MG IVPREMIX(* 500 MG/100 ML BAG IVPB SCH (14:04)
[2019-06-02] MEDS: SPIRIVA Respimat* (tiotropium) 2.5 mcg/inh Inhaler INH SCH (14:31)
--- NOTE | 2019-06-02 18:15 | CONS ---
CONTINUATION ADDENDUM NOW INCLUDED ON THIS REPOT CONSULTATION REPORT: DATE OF CONSULT: 06/02/19 REQUESTING PHYSICIAN: Leslye Frankel. CONSULTING SERVICE: Infectious Disease. REASON FOR CONSULT: Leukocytosis. IMPRESSION: 1. Leukocytosis, neutrophilic predominance. She has had no fevers, chills, or sweats. She did have a recent robotic sigmoidectomy on 05/25/19 with an enterotomy, abdominal fluid collection, exploratory laparotomy, drainage of fluid and enteric contents, repair of enterotomy. Her white count continues to climb. She has no other focal signs or symptoms of infection. Benign urinalysis. No dental or sinus symptoms. No cough or chest pain. No infiltrate at the lung bases on her CT scan or on chest x-ray. She has had no bowel output or diarrhea. 2. Postoperative ileus, improving with NG tube. 3. Recurrent diverticulitis, treated now with sigmoidectomy. 4. Listed PENICILLIN allergy, was an intolerance that caused diarrhea as a child. 5. Asthma. 6. Obstructive sleep apnea. 7. Hypothyroidism. RECOMMENDATIONS: Because she has also had some QT related issues, we will stop the Levaquin and replace with cefepime 2 g IV every 12 hours. Continue Flagyl 500 mg IV every 8 hours for her initial intraabdominal process. Her CT scan of the abdomen done today was benign. She has no other focal signs or symptoms. I do not think there is still an unknown infectious etiology for her leukocytosis. I suspect it is reactive to her multiple procedures and underlying illness. In addition to undrained abscess which we do not have evidence of, the other usual infectious cause of severe leukocytosis is C. difficile enterocolitis which she does not have evidence of. The only other consideration would be to re-culture the blood at this point and if she does have profound liquid diarrhea, we would consider C. difficile testing. Her abdominal exam and symptoms are improving since NG placement which argues against C. difficile as well. HISTORY OF PRESENT ILLNESS: This is a 58-year-old woman admitted for an elective robotic-assisted sigmoidectomy, which she had on 05/25/19, initially felt well and then had some abdominal pain with ileus, vomiting, rigors. A CT scan showed fluid and air collection. She was taken to the OR on 05/29/[address] Ponce for exploratory laparotomy, where he drained fluid collection and had oversew of a small bowel enterotomy. She had blood cultures sent on that were negative. She has had no fevers while she has been here. Because of increasing white count and abdominal distention, she had a CT of the abdomen and pelvis done today that showed bilateral pleural effusions, looks like little atelectasis on the left, some dilated loops of bowel and dilated loops with air-fluid level, no free fluid or extraluminal air. She had an NG tube placed today and she has noted a significant improvement in her abdominal distention and discomfort throughout the day today. She does have a VAC dressing in place, which is not bothering her. She has no dental or sinus symptoms. No cough. Does not feel short of breath. No chest pain. No bowel movements to date. She had not had issues with leukocytosis in the past that she knows of, had no illness before coming into the hospital that she is aware of either. No skin rashes here. No back or joint pain. PAST MEDICAL HISTORY: 1. Obesity. 2. Recurrent diverticulitis. 3. Asthma. 4. Obstructive sleep apnea, on CPAP. 5. Hypothyroidism. 6. Sciatica. PAST SURGICAL HISTORY: 1. History of right foot surgery. 2. Status post bilateral shoulder surgery, rotator cuff repair. 3. Status post bilateral carpal tunnel release. 4. Status post right knee arthroscopy. 5. x3. CONTINUATION ADDENDUM: PAST MEDICAL HISTORY: Status post laparoscopic cholecystectomy. ALLERGIES: ASPIRIN, HYDROCODONE, PENICILLIN cause GI side effects in the form of diarrhea. MEDICATIONS: 1. Heparin subcutaneous injection. 2. Levothyroxine. 3. Metoclopramide as needed. 4. Flagyl 500 mg every 8 hours as needed. 5. Morphine AUTOMOTIVE ELECTRICAL FITTER. 6. Scopolamine patch. 7. Spiriva. 8. Levaquin 500 mg IV daily. SOCIAL HISTORY: She is , has 2 kids, past smoker. FAMILY HISTORY: Colorectal cancer in her brother. Father at 57. REVIEW OF SYSTEMS: All negative except as noted above to a 12-point review of systems. PHYSICAL EXAM: Vital Signs: Temperature 37, T-max 37, heart rate 98, respiratory rate 19, blood pressure 113/62, oxygen saturation 92% on 5 L by nasal cannula. In general, she is awake, not in distress. Neurologic: She is oriented x3. Follows all commands. HEENT: There is no conjunctival hemorrhage. Oropharynx without lesions. She has an NG tube present with bilious material present. Neck is supple without mass. Heart is regular and tachycardic without murmurs. Lungs show decreased breath sounds at the bases without wheeze or rales. Abdomen: Mildly distended. There are decreased bowel sounds, midline VAC dressing with surrounding edematous soft tissue, no erythema around the incision. There are other port holes. Musculoskeletal: There is no spine tenderness to palpation or joint synovitis. Skin: There are no rash or splint hemorrhage. LABORATORY DATA: White blood cell count 31, hemoglobin 9, platelets 347, MCV 81. Creatinine 0.3. ALT 10. Glucose 335. Urinalysis shows 1+ blood, 1+ leukocyte esterase. Please see impression and recommendations outlined above as I have discussed with Dr. Frankel. Thank you for asking me to see Ms. Mendoza in consultation. [id number]/CPS #: [id number] A- [id number]/CPS #: [id number] [facility] CENTERRamona
--- NOTE | 2019-06-02 18:23 | CONS ---
CONSULTATION REPORT: DATE OF CONSULT: ADDENDUM: PAST MEDICAL HISTORY: Status post laparoscopic cholecystectomy. ALLERGIES: ASPIRIN, HYDROCODONE, PENICILLIN cause GI side effects in the form of diarrhea. MEDICATIONS: 1. Heparin subcutaneous injection. 2. Levothyroxine. 3. Metoclopramide as needed. 4. Flagyl 500 mg every 8 hours as needed. 5. Morphine BRAND SALES MANAGER. 6. Scopolamine patch. 7. Spiriva. 8. Levaquin 500 mg IV daily. SOCIAL HISTORY: She is , has 2 kids, past smoker. FAMILY HISTORY: Colorectal cancer in her brother. Father at 57. REVIEW OF SYSTEMS: All negative except as noted above to a 12-point review of systems. PHYSICAL EXAM: Vital Signs: Temperature 37, T-max 37, heart rate 98, respiratory rate 19, blood pressure 113/62, oxygen saturation 92% on 5 L by nasal cannula. In general, she is awake, not in distress. Neurologic: She is oriented x3. Follows all commands. HEENT: There is no conjunctival hemorrhage. Oropharynx without lesions. She has an NG tube present with bilious material present. Neck is supple without mass. Heart is regular and tachycardic without murmurs. Lungs show decreased breath sounds at the bases without wheeze or rales. Abdomen: Mildly distended. There are decreased bowel sounds, midline VAC dressing with surrounding edematous soft tissue, no erythema around the incision. There are other port holes. Musculoskeletal: There is no spine tenderness to palpation or joint synovitis. Skin: There are no rash or splint hemorrhage. LABORATORY DATA: White blood cell count 31, hemoglobin 9, platelets 347, MCV 81. Creatinine 0.3. ALT 10. Glucose 335. Urinalysis shows 1+ blood, 1+ leukocyte esterase. Please see impression and recommendations outlined above as I have discussed with Dr. Frankel. Thank you for asking me to see Ms. Mendoza in consultation. [id number]/[facility] #: [id number] MTDD
[2019-06-02] MEDS: D5W 1/2 NS KCl 20 Meq 1000 ML* 1,000 ML IV SCH (19:33)
[2019-06-02] MEDS: Cefepime 2 GM in Dextrose(*) 2 GM/50 ML BAG IV SCH (19:58)
[2019-06-03] MEDS: Ondansetron INJ* 2 MG/ML VIAL IV PRN (00:14)
[2019-06-03] MEDS: Metoclopramide IV* 5 MG/ML 2 ML VIAL IV PRN (02:19)
[2019-06-03] MEDS: metroNIDAZOLE IV 500 MG/100ML* 500 MG/100 ML BAG IVPB SCH ×3 (05:51→21:19)
[2019-06-03] MEDS: Heparin VIAL(*) 5000 UNITS/ML VIAL (FIVE THOUSAND) SUBCUT SCH ×3 (05:51→21:19)
[2019-06-03 06:18] LABS: Hematocrit 28 % (35-47); Hemoglobin 8.9 g/dL (12.0-16.0); Mean Corpuscular HGB Conc 32 g/dL (31-36); Mean Corpuscular Hemoglobin 26 pg (27-31); Mean Corpuscular Volume 81 fL (80-97); Mean Platelet Volume 7.4 fL (7.4-10.4); Platelet Count 338 10^3/uL (150-450); Red Blood Count 3.42 10^6 /uL (3.70-4.87); Red Cell Distribution Width 17 % (10-15); White Blood Count 31.2 10^3/uL (3.5-10.8)
[2019-06-03 06:36] LABS: Albumin 1.9 g/dL (3.2-5.2); Albumin/Globulin Ratio 0.8 (1-3); BUN/Creatinine Ratio 17.4 (8-20); Calcium 7.1 mg/dL (8.6-10.3); EGFR Non-African American 140.5 (>60); Globulin 2.3 g/dL (2-4); Magnesium 1.9 mg/dL (1.9-2.7); Potassium 3.6 mmol/L (3.5-5.0); Total Bilirubin 0.5 mg/dL (0.2-1.0); Total Protein 4.2 g/dL (6.4-8.9)
[2019-06-03 07:36] LABS: Polychromasia 1+
[2019-06-03] MEDS: Levothyroxine INJ* 100 MCG/5 ML VIAL IV SCH (08:44)
[2019-06-03] MEDS: Cefepime 2 GM in Dextrose(*) 2 GM/50 ML BAG IV SCH ×2 (08:51→21:19)
--- NOTE | 2019-06-03 10:39 | PN ---
Progress Note - Progress Note Date of Service: 06/03/19 SOAP: Subjective: CC: leukocytosis HPI: 58 year old woman s/p sigmoidectomy and then laparotomy for small bowel leak and repair of enterotomy, has had ongoing leukocytosis since then as well as ileus. Her abdominal swelling and discomfort is better since the NG tube was placed yesterday. She has no fever, cough, or shortness of breath. Objective: Vital Signs Temp 36.9 C 06/03/19 08:00 Pulse 90 06/03/19 09:31 Resp 20 06/03/19 09:31 BP 98/67 06/03/19 09:31 Pulse Ox 93 06/03/19 09:31 Intake & Output 06/02/19 06/03/19 06/03/19 18:59 06:59 18:59 Intake Total 1806 Output Total 515 2320 60 Balance -515 -514 -60 Weight 207 lb 14.334 oz Intake: IV Fluids 1566 ABX - FLAGYL 960 NS 50 Potassium 556 IVPB 240 ABX - FLAGYL 240 Output: NG Tube Drainage Amount 350 G Tube 1400 PIETRO #1 15 50 PIETRO #2 5 50 Wound Vac 250 100 Good 245 370 60 Gen:awake, no distress HEENT: no thrush Heart:Regular, no murmur Lungs:decreased breath sounds Abdomen: mildly distended, no rebound, midline vac, no erythema MSK: diffuse edema Laboratory Results - last 24 hr 06/02/19 06/02/19 06/03/19 12:30 12:30 05:55 WBC 31.0 H 31.2 H RBC 3.41 L 3.42 L Hgb 9.0 L 8.9 L Hct 28 L 28 L MCV 81 81 MCH 27 26 L MCHC 33 32 RDW 17 H 17 H Plt Count 347 338 MPV 7.6 7.4 Neut % (Auto) 89.7 Not Reportable Lymph % (Auto) 5.5 Not Reportable [place] % (Auto) 4.3 Not Reportable Eos % (Auto) 0.1 Not Reportable Baso % (Auto) 0.4 Not Reportable Absolute Neuts (auto) 27.8 H Not Reportable Absolute Lymphs (auto) 1.7 Not Reportable Absolute Monos (auto) 1.3 H Not Reportable Absolute Eos (auto) 0.0 Not Reportable Absolute Basos (auto) 0.1 Not Reportable Absolute Nucleated RBC 0.0 Not Reportable Immature Gran % 3.0 10.0 H Neutrophils % 83.0 80.0 Band Neutrophils % 2.0 3.0 Lymphocytes % 7.0 6.0 Monocytes % 7.0 4.0 Eosinophils % 0.0 Basophils % 0.0 Metamyelocytes % 1.0 1.0 Myelocytes % 6.0 H Nucleated RBC % 0.0 Not Reportable Normal RBC Morphology Normal Not Reportable Polychromasia 1+ Anisocytosis 1+ Sodium 134 L Potassium 4.7 Chloride 102 Carbon Dioxide 29 Anion Gap 3 BUN 8 Creatinine 0.37 L Est GFR ( Amer) 218.6 Est GFR (Non-Af Amer) 180.7 BUN/Creatinine Ratio 21.6 H Glucose 335 H Calcium 7.0 L Magnesium 1.9 Total Bilirubin 0.50 AST 18 ALT 10 Alkaline Phosphatase 59 Total Protein 4.5 L Albumin 2.0 L Globulin 2.5 Albumin/Globulin Ratio 0.8 L 06/03/19 05:55 WBC RBC Hgb Hct MCV MCH MCHC RDW Plt Count MPV Neut % (Auto) Lymph % (Auto) [place] % (Auto) Eos % (Auto) Baso % (Auto) Absolute Neuts (auto) Absolute Lymphs (auto) Absolute Monos (auto) Absolute Eos (auto) Absolute Basos (auto) Absolute Nucleated RBC Immature Gran % Neutrophils % Band Neutrophils % Lymphocytes % Monocytes % Eosinophils % Basophils % Metamyelocytes % Myelocytes % Nucleated RBC % Normal RBC Morphology Polychromasia Anisocytosis Sodium 137 Potassium 3.6 Chloride 105 Carbon Dioxide 30 Anion Gap 2 BUN 8 Creatinine 0.46 L Est GFR ( Amer) 170.0 Est GFR (Non-Af Amer) 140.5 BUN/Creatinine Ratio 17.4 Glucose 103 H Calcium 7.1 L Magnesium 1.9 Total Bilirubin 0.50 AST 17 ALT 9 Alkaline Phosphatase 51 Total Protein 4.2 L Albumin 1.9 L Globulin 2.3 Albumin/Globulin Ratio 0.8 L Assessment: 1. Leukocytosis, stable, slowly improving overall and no fever. No infiltrate on CT/CXR, no abd abscess, abdominal exam improving. 2. Recent Long QT 3. Obesity 4. recurrent diverticulitis 5. pleural effusions with atelectasis; extravascular volume increased Plan: 1. continue cefepime 2 gm IV Q12hrs and flagyl 500 mg IV Q8hrs, BC pending
[2019-06-03] MEDS: SPIRIVA Respimat* (tiotropium) 2.5 mcg/inh Inhaler INH SCH (10:45)
--- NOTE | 2019-06-03 12:03 | PN ---
Date of Service: 06/03/19 Critical Care Services: remains AF. WBC same. Abdominal tenderness same NGT placed yesterday and 1.5 liters bile drained. since then little outpu still without BM's Vital Signs: Temp Pulse Resp BP SpO2 FiO2 98.5 F 88 18 108/69 95 06/03/19 08:00 06/03/19 11:00 06/03/19 11:00 06/03/19 11:00 06/03/19 11:00 Physical Exam: Gen: AO times 3. HEENT:EOMI Lungs:Decreased BS's Cardiac: RRR Abdomen: Distended. No rebound or guarding. Less tenderness palpation RLQ/LLQ Extremities: No CHRIS Neuro:no focal deficits Fluid Balance (Past 24 Hours): I= O= Net Intake & Output 06/01/19 06/02/19 06/03/19 06/04/19 06:59 06:59 06:59 06:59 Intake Total 2422 2249 1806 Output Total 2121 800 2835 145 Balance 301 1449 -1029 -145 Weight 221 lb 14.4 oz 207 lb 14.334 oz Intake: IV Fluids 2312 1654 1566 ABX - FLAGYL 960 D5W 1/2 NS 20 meq KCL 1308 1654 LR 564 NS 440 50 Potassium 556 IVPB 110 415 240 ABX - FLAGYL 110 210 240 ABX - LEVOFLOXACIN 105 Potassium 100 Oral 180 Output: NG Tube Drainage Amount 350 G Tube 1400 PIETRO #1 45 50 65 PIETRO #2 66 50 55 Wound Vac 280 350 Good 1730 700 615 145 Labs: Laboratory Results - last 24 hr 06/02/19 06/02/19 06/03/19 12:30 12:30 05:55 WBC 31.0 H 31.2 H RBC 3.41 L 3.42 L Hgb 9.0 L 8.9 L Hct 28 L 28 L MCV 81 81 MCH 27 26 L MCHC 33 32 RDW 17 H 17 H Plt Count 347 338 MPV 7.6 7.4 Neut % (Auto) 89.7 Not Reportable Lymph % (Auto) 5.5 Not Reportable [place] % (Auto) 4.3 Not Reportable Eos % (Auto) 0.1 Not Reportable Baso % (Auto) 0.4 Not Reportable Absolute Neuts (auto) 27.8 H Not Reportable Absolute Lymphs (auto) 1.7 Not Reportable Absolute Monos (auto) 1.3 H Not Reportable Absolute Eos (auto) 0.0 Not Reportable Absolute Basos (auto) 0.1 Not Reportable Absolute Nucleated RBC 0.0 Not Reportable Immature Gran % 3.0 10.0 H Neutrophils % 83.0 80.0 Band Neutrophils % 2.0 3.0 Lymphocytes % 7.0 6.0 Monocytes % 7.0 4.0 Eosinophils % 0.0 Basophils % 0.0 Metamyelocytes % 1.0 1.0 Myelocytes % 6.0 H Nucleated RBC % 0.0 Not Reportable Normal RBC Morphology Normal Not Reportable Polychromasia 1+ Anisocytosis 1+ Sodium 134 L Potassium 4.7 Chloride 102 Carbon Dioxide 29 Anion Gap 3 BUN 8 Creatinine 0.37 L Est GFR ( Amer) 218.6 Est GFR (Non-Af Amer) 180.7 BUN/Creatinine Ratio 21.6 H Glucose 335 H Calcium 7.0 L Magnesium 1.9 Total Bilirubin 0.50 AST 18 ALT 10 Alkaline Phosphatase 59 Total Protein 4.5 L Albumin 2.0 L Globulin 2.5 Albumin/Globulin Ratio 0.8 L 06/03/19 05:55 WBC RBC Hgb Hct MCV MCH MCHC RDW Plt Count MPV Neut % (Auto) Lymph % (Auto) [place] % (Auto) Eos % (Auto) Baso % (Auto) Absolute Neuts (auto) Absolute Lymphs (auto) Absolute Monos (auto) Absolute Eos (auto) Absolute Basos (auto) Absolute Nucleated RBC Immature Gran % Neutrophils % Band Neutrophils % Lymphocytes % Monocytes % Eosinophils % Basophils % Metamyelocytes % Myelocytes % Nucleated RBC % Normal RBC Morphology Polychromasia Anisocytosis Sodium 137 Potassium 3.6 Chloride 105 Carbon Dioxide 30 Anion Gap 2 BUN 8 Creatinine 0.46 L Est GFR ( Amer) 170.0 Est GFR (Non-Af Amer) 140.5 BUN/Creatinine Ratio 17.4 Glucose 103 H Calcium 7.1 L Magnesium 1.9 Total Bilirubin 0.50 AST 17 ALT 9 Alkaline Phosphatase 51 Total Protein 4.2 L Albumin 1.9 L Globulin 2.3 Albumin/Globulin Ratio 0.8 L Impression: s/p sigmoid colectomy POD #8 POD 4 s/p return to OR for exploration with enterotomy nl LVEF on TTE Plan: Plan: CT scan of abdomen to r/o abscess for either tomorrow or Saturday ABX changed to Cefepime and Flagyl start TPN add BM regimen Critical Care Time: 35
[2019-06-03] MEDS ORDERED: Furosemide IV* 10 MG/ML 2 ML VIAL (20 MG) IV ONE (13:37)
--- NOTE | 2019-06-03 13:37 | PN ---
Progress Note - Progress Note Date of Service: 06/03/19 SOAP: Subjective: []no flatus of bm, no [place] "a little better than yesterday" no fever/chills Objective: []sitting in chair , conversing with staff Temp Pulse Resp BP Pulse Ox 98.4 F 85 17 106/61 95 06/03/19 12:00 06/03/19 12:00 06/03/19 12:00 06/03/19 11:50 06/03/19 12:00 Laboratory Last Values WBC 31.2 10^3/uL (3.5-10.8) H 06/03/19 05:55 RBC 3.42 10^6 /uL (3.70-4.87) L 06/03/19 05:55 Hgb 8.9 g/dL (12.0-16.0) L 06/03/19 05:55 Hct 28 % (35-47) L 06/03/19 05:55 MCV 81 fL (80-97) 06/03/19 05:55 MCH 26 pg (27-31) L 06/03/19 05:55 MCHC 32 g/dL (31-36) 06/03/19 05:55 RDW 17 % (10-15) H 06/03/19 05:55 Plt Count 338 10^3/uL (150-450) 06/03/19 05:55 MPV 7.4 fL (7.4-10.4) 06/03/19 05:55 Neut % (Auto) Not Reportable 06/03/19 05:55 Lymph % (Auto) Not Reportable 06/03/19 05:55 [place] % (Auto) Not Reportable 06/03/19 05:55 Eos % (Auto) Not Reportable 06/03/19 05:55 Baso % (Auto) Not Reportable 06/03/19 05:55 Absolute Neuts (auto) Not Reportable 06/03/19 05:55 Absolute Lymphs (auto) Not Reportable 06/03/19 05:55 Absolute Monos (auto) Not Reportable 06/03/19 05:55 Absolute Eos (auto) Not Reportable 06/03/19 05:55 Absolute Basos (auto) Not Reportable 06/03/19 05:55 Absolute Nucleated RBC Not Reportable 06/03/19 05:55 Immature Gran % 10.0 % (0-9) H 06/03/19 05:55 Neutrophils % 80.0 % 06/03/19 05:55 Band Neutrophils % 3.0 % (0-8) 06/03/19 05:55 Lymphocytes % 6.0 % 06/03/19 05:55 Monocytes % 4.0 % 06/03/19 05:55 Eosinophils % 0.0 % 06/03/19 05:55 Basophils % 0.0 % 06/03/19 05:55 Metamyelocytes % 1.0 % (0-2) 06/03/19 05:55 Myelocytes % 6.0 % (0-1) H 06/03/19 05:55 Promyelocytes % 1.0 % 05/30/19 06:15 Nucleated RBC % Not Reportable 06/03/19 05:55 Normal RBC Morphology Not Reportable 06/03/19 05:55 Polychromasia 1+ 06/03/19 05:55 Anisocytosis 1+ 06/03/19 05:55 INR (Anticoag Therapy) 1.18 (0.82-1.09) H 06/01/19 04:41 Sodium 137 mmol/L (135-145) 06/03/19 05:55 Potassium 3.6 mmol/L (3.5-5.0) 06/03/19 05:55 Chloride 105 mmol/L (101-111) 06/03/19 05:55 Carbon Dioxide 30 mmol/L (22-32) 06/03/19 05:55 Anion Gap 2 mmol/L (2-11) 06/03/19 05:55 BUN 8 mg/dL (6-24) 06/03/19 05:55 Creatinine 0.46 mg/dL (0.51-0.95) L 06/03/19 05:55 Est GFR ( Amer) 170.0 (>60) 06/03/19 05:55 Est GFR (Non-Af Amer) 140.5 (>60) 06/03/19 05:55 BUN/Creatinine Ratio 17.4 (8-20) 06/03/19 05:55 Glucose 103 mg/dL (70-100) H 06/03/19 05:55 Lactic Acid 1.4 mmol/L (0.5-2.0) 05/29/19 11:42 Calcium 7.1 mg/dL (8.6-10.3) L 06/03/19 05:55 Ionized Calcium 1.05 mmol/L (1.16-1.32) L 06/02/19 05:02 Phosphorus 2.1 mg/dL (2.5-5.0) L 06/01/19 04:41 Magnesium 1.9 mg/dL (1.9-2.7) 06/03/19 05:55 Total Bilirubin 0.50 mg/dL (0.2-1.0) 06/03/19 05:55 AST 17 U/L (13-39) 06/03/19 05:55 ALT 9 U/L (7-52) 06/03/19 05:55 Alkaline Phosphatase 51 U/L (34-104) 06/03/19 05:55 Troponin I 0.02 ng/mL (<0.04) 06/02/19 05:02 Total Protein 4.2 g/dL (6.4-8.9) L 06/03/19 05:55 Albumin 1.9 g/dL (3.2-5.2) L 06/03/19 05:55 Globulin 2.3 g/dL (2-4) 06/03/19 05:55 Albumin/Globulin Ratio 0.8 (1-3) L 06/03/19 05:55 Urine Color Yellow 06/01/19 20:50 Urine Appearance Turbid 06/01/19 20:50 Urine pH 5.0 (5-9) 06/01/19 20:50 Ur Specific [place] 1.027 (1.010-1.030) 06/01/19 20:50 Urine Protein Negative (Negative) 06/01/19 20:50 Urine Ketones Negative (Negative) 06/01/19 20:50 Urine Blood 1+ (Negative) A 06/01/19 20:50 Urine Nitrate Negative (Negative) 06/01/19 20:50 Urine Bilirubin Negative (Negative) 06/01/19 20:50 Urine Urobilinogen Negative (Negative) 06/01/19 20:50 Ur Leukocyte Esterase 1+ (Negative) A 06/01/19 20:50 Urine WBC (Auto) Absent (Absent) 06/01/19 20:50 Urine RBC (Auto) 3+(>10/hpf) (Absent) A 06/01/19 20:50 Amorphous Crystals Present (Absent) A 06/01/19 20:50 Urine Bacteria Absent (Absent) 06/01/19 20:50 Urine Glucose Negative (Negative) 06/01/19 20:50 abdomen-wound vac intact, minimal output, skin no cellulitis, edemetous drains serous le edema Assessment: []pod#5/9 elevated wbc, on broad spectrum abx, ct 12-no abscess tpn started improved abd since ng edemetous pleural effusions Plan: []cont abx, tpn await return bowel fxn try small amount diuresis
[2019-06-03] MEDS: Senna TAB 8.6 mg* TAB PO SCH (14:37)
[2019-06-03] MEDS ORDERED: TPN* 24 HR with Dextrose 50% Water* 500 ML, Amino Acid Infusion 10%* 850 ML, Sterile Wa... CENTR SCH ×12 (17:00)
[2019-06-03] MEDS: D5W 1/2 NS KCl 20 Meq 1000 ML* 1,000 ML IV SCH (18:03)
[2019-06-03] MEDS ORDERED: Benzocaine/Menthol LOZ* 1 LOZENGE PO PRN (19:32)
[2019-06-03] MEDS: Docusate CAP* 100 MG PO SCH (21:19)
[2019-06-04 04:53] LABS: Hematocrit 25 % (35-47); Mean Corpuscular HGB Conc 32 g/dL (31-36); Mean Corpuscular Hemoglobin 26 pg (27-31); Mean Corpuscular Volume 81 fL (80-97); Mean Platelet Volume 7.5 fL (7.4-10.4); Platelet Count 321 10^3/uL (150-450); Red Blood Count 3.04 10^6 /uL (3.70-4.87); Red Cell Distribution Width 17 % (10-15); White Blood Count 25.5 10^3/uL (3.5-10.8)
[2019-06-04] MEDS: metroNIDAZOLE IV 500 MG/100ML* 500 MG/100 ML BAG IVPB SCH ×3 (05:08→20:04)
[2019-06-04] MEDS: Heparin VIAL(*) 5000 UNITS/ML VIAL (FIVE THOUSAND) SUBCUT SCH ×3 (05:08→21:38)
[2019-06-04 05:11] LABS: Albumin 1.9 g/dL (3.2-5.2); Albumin/Globulin Ratio 0.8 (1-3); Calcium 7.2 mg/dL (8.6-10.3); EGFR African American 199.8 (>60); EGFR Non-African American 165.1 (>60); Globulin 2.3 g/dL (2-4); Magnesium 1.9 mg/dL (1.9-2.7); Phosphorus 2.3 mg/dL (2.5-5.0); Potassium 3.3 mmol/L (3.5-5.0); Total Bilirubin 0.4 mg/dL (0.2-1.0); Total Protein 4.2 g/dL (6.4-8.9)
[2019-06-04 07:06] LABS: Polychromasia 1+
[2019-06-04 07:07] LABS: ABS Basophils 0.2 10^3/ul (0-0.2); ABS Eosinophils 0.4 10^3/ul (0-0.6); ABS Lymphocytes 2.3 10^3/ul (1.0-4.8); ABS Monocytes 1.5 10^3/ul (0-0.8); ABS Neutrophils 21.1 10^3/ul (1.5-7.7); Eosinophil % 1.6 %; Lymphocyte % 9.1 %
[2019-06-04] MEDS: SPIRIVA Respimat* (tiotropium) 2.5 mcg/inh Inhaler INH SCH (08:18)
[2019-06-04] MEDS: Levothyroxine INJ* 100 MCG/5 ML VIAL IV SCH (08:25)
[2019-06-04] MEDS: Senna TAB 8.6 mg* TAB PO SCH (08:30)
[2019-06-04] MEDS: Docusate CAP* 100 MG PO SCH ×2 (08:31→20:03)
[2019-06-04] MEDS ORDERED: Furosemide IV* 10 MG/ML 2 ML VIAL (20 MG) IV ONE (08:37)
[2019-06-04] MEDS: Cefepime 2 GM in Dextrose(*) 2 GM/50 ML BAG IV SCH ×2 (09:11→20:00)
[2019-06-04] MEDS: KCL 20 MEQ/100 ML IVPREMIX* 20 MEQ/100 ML BAG IV SCH ×3 (09:17→13:47)
[2019-06-04] MEDS: Scopolamine 1.5 mg* PATCH TRANSDERM SCH (09:21)
--- NOTE | 2019-06-04 10:42 | PN ---
Progress Note - Progress Note Date of Service: 06/04/19 SOAP: Subjective: CC: leukocytosis HPI: 58 year old woman s/p sigmoidectomy and then laparotomy for small bowel leak and repair of enterotomy, has leukocytosis since then as well as ileus. Belly feels better each day. Wants to drink. No flatus. She has no fever, cough, or shortness of breath. Objective: Vital Signs Temp 36.8 C 06/04/19 08:00 Pulse 97 06/04/19 09:02 Resp 14 06/04/19 09:56 BP 81/69 06/04/19 09:02 Pulse Ox 91 06/04/19 09:02 Intake & Output 06/03/19 06/04/19 06/04/19 18:59 06:59 18:59 Intake Total 719 1649 Output Total 745 1970 440 Balance -26 -321 -440 Weight 207 lb 9 oz Intake: IV Fluids 501 1052 ABX - FLAGYL 182 D5W 1/2 NS 20 meq KCL 361 733 NS 140 137 IVPB 218 30 ABX - CEFEPIME 72 30 ABX - FLAGYL 146 TPN/PPN 567 Output: NG Tube Drainage Amount 600 PIETRO #1 10 15 PIETRO #2 20 30 Wound Vac 625 Good 715 700 440 Gen:awake, no distress HEENT: no thrush Heart:Regular, no murmur Lungs:decreased breath sounds Abdomen: mildly distended, no rebound, midline vac, no erythema MSK: diffuse edema Laboratory Results - last 24 hr 06/02/19 06/02/19 06/03/19 12:30 12:30 05:55 WBC 31.0 H 31.2 H RBC 3.41 L 3.42 L Hgb 9.0 L 8.9 L Hct 28 L 28 L MCV 81 81 MCH 27 26 L MCHC 33 32 RDW 17 H 17 H Plt Count 347 338 MPV 7.6 7.4 Neut % (Auto) 89.7 Not Reportable Lymph % (Auto) 5.5 Not Reportable [place] % (Auto) 4.3 Not Reportable Eos % (Auto) 0.1 Not Reportable Baso % (Auto) 0.4 Not Reportable Absolute Neuts (auto) 27.8 H Not Reportable Absolute Lymphs (auto) 1.7 Not Reportable Absolute Monos (auto) 1.3 H Not Reportable Absolute Eos (auto) 0.0 Not Reportable Absolute Basos (auto) 0.1 Not Reportable Absolute Nucleated RBC 0.0 Not Reportable Immature Gran % 3.0 10.0 H Neutrophils % 83.0 80.0 Band Neutrophils % 2.0 3.0 Lymphocytes % 7.0 6.0 Monocytes % 7.0 4.0 Eosinophils % 0.0 Basophils % 0.0 Metamyelocytes % 1.0 1.0 Myelocytes % 6.0 H Nucleated RBC % 0.0 Not Reportable Normal RBC Morphology Normal Not Reportable Polychromasia 1+ Anisocytosis 1+ Sodium 134 L Potassium 4.7 Chloride 102 Carbon Dioxide 29 Anion Gap 3 BUN 8 Creatinine 0.37 L Est GFR ( Amer) 218.6 Est GFR (Non-Af Amer) 180.7 BUN/Creatinine Ratio 21.6 H Glucose 335 H Calcium 7.0 L Magnesium 1.9 Total Bilirubin 0.50 AST 18 ALT 10 Alkaline Phosphatase 59 Total Protein 4.5 L Albumin 2.0 L Globulin 2.5 Albumin/Globulin Ratio 0.8 L 06/03/19 05:55 WBC RBC Hgb Hct MCV MCH MCHC RDW Plt Count MPV Neut % (Auto) Lymph % (Auto) [place] % (Auto) Eos % (Auto) Baso % (Auto) Absolute Neuts (auto) Absolute Lymphs (auto) Absolute Monos (auto) Absolute Eos (auto) Absolute Basos (auto) Absolute Nucleated RBC Immature Gran % Neutrophils % Band Neutrophils % Lymphocytes % Monocytes % Eosinophils % Basophils % Metamyelocytes % Myelocytes % Nucleated RBC % Normal RBC Morphology Polychromasia Anisocytosis Sodium 137 Potassium 3.6 Chloride 105 Carbon Dioxide 30 Anion Gap 2 BUN 8 Creatinine 0.46 L Est GFR ( Amer) 170.0 Est GFR (Non-Af Amer) 140.5 BUN/Creatinine Ratio 17.4 Glucose 103 H Calcium 7.1 L Magnesium 1.9 Total Bilirubin 0.50 AST 17 ALT 9 Alkaline Phosphatase 51 Total Protein 4.2 L Albumin 1.9 L Globulin 2.3 Albumin/Globulin Ratio 0.8 L Microbiology 06/03/19 09:24 Blood Line Aerobic Blood Culture - Preliminary No Growth Day 1 06/03/19 09:24 Blood Line Anaerobic Blood Culture - Preliminary No Growth Day 1 05/29/19 11:46 Blood Venous Aerobic Blood Culture - Final No Growth Day 5 05/29/19 11:46 Blood Venous Anaerobic Blood Culture - Final No Growth Day 5 05/29/19 10:28 Blood Venous Aerobic Blood Culture - Final No Growth Day 5 05/29/19 10:28 Blood Venous Anaerobic Blood Culture - Final No Growth Day 5 Assessment: 1. Leukocytosis, stable and no fever. No infiltrate on CT/CXR, no abd abscess, abdominal exam improving, BC pending. 2. Recent Long QT 3. Obesity 4. recurrent diverticulitis 5. pleural effusions with atelectasis Plan: 1. continue cefepime 2 gm IV Q12hrs and flagyl 500 mg IV Q8hrs, abx day 8 since laparotomy. Will follow up blood cultures.
--- NOTE | 2019-06-04 11:18 | PN ---
Date of Service: 06/04/19 Critical Care Services: WBC count decreasing. Remains AF. patient with less abdominal discomfort started on TPN yesterday Vital Signs: Temp Pulse Resp BP SpO2 FiO2 98.3 F 92 16 103/60 97 06/04/19 08:00 06/04/19 11:00 06/04/19 11:00 06/04/19 11:00 06/04/19 11:00 Physical Exam: Gen: AO times 3. sitting in chair HEENT:EOMI Lungs:Decreased BS's Cardiac: RRR Abdomen: Distended. No rebound or guarding. Less tenderness palpation RLQ/LLQ Extremities: No CHRIS Neuro:no focal deficits Fluid Balance (Past 24 Hours): I= O= Net Intake & Output 06/02/19 06/03/19 06/04/19 06/05/19 06:59 06:59 06:59 06:59 Intake Total 2249 1806 2368 Output Total 800 2835 2715 440 Balance 1449 -1029 -347 -440 Weight 221 lb 14.4 oz 207 lb 14.334 oz 207 lb 9 oz Intake: IV Fluids 1654 1566 1553 ABX - FLAGYL 960 182 D5W 1/2 NS 20 meq KCL 1654 1094 NS 50 277 Potassium 556 IVPB 415 240 248 ABX - CEFEPIME 102 ABX - FLAGYL 210 240 146 ABX - LEVOFLOXACIN 105 Potassium 100 TPN/PPN 567 Oral 180 Output: NG Tube Drainage Amount 350 600 G Tube 1400 PIETRO #1 50 65 25 PIETRO #2 50 55 50 Wound Vac 350 625 Good 954 658 1318 440 Labs: Laboratory Results - last 24 hr 06/03/19 06/03/19 06/04/19 20:15 23:07 04:25 WBC 25.5 H RBC 3.04 L Hgb 8.0 L Hct 25 L MCV 81 MCH 26 L MCHC 32 RDW 17 H Plt Count 321 MPV 7.5 Neut % (Auto) 82.9 Lymph % (Auto) 9.1 [place] % (Auto) 5.7 Eos % (Auto) 1.6 Baso % (Auto) 0.7 Absolute Neuts (auto) 21.1 H Absolute Lymphs (auto) 2.3 Absolute Monos (auto) 1.5 H Absolute Eos (auto) 0.4 Absolute Basos (auto) 0.2 Absolute Nucleated RBC 0.0 Immature Gran % 10.0 H Neutrophils % 78.0 Band Neutrophils % 1.0 Lymphocytes % 7.0 Monocytes % 2.0 Eosinophils % 3.0 Metamyelocytes % 1.0 Myelocytes % 8.0 H Nucleated RBC % 0.0 Normal RBC Morphology Not Reportable Polychromasia 1+ Sodium Potassium Chloride Carbon Dioxide Anion Gap BUN Creatinine Est GFR ( Amer) Est GFR (Non-Af Amer) BUN/Creatinine Ratio Glucose POC Glucose (mg/dL) 152 H 183 H Calcium Phosphorus Magnesium Total Bilirubin AST ALT Alkaline Phosphatase Total Protein Albumin Globulin Albumin/Globulin Ratio Prealbumin Triglycerides Cholesterol 06/04/19 06/04/19 06/04/19 04:25 04:37 07:39 WBC RBC Hgb Hct MCV MCH MCHC RDW Plt Count MPV Neut % (Auto) Lymph % (Auto) [place] % (Auto) Eos % (Auto) Baso % (Auto) Absolute Neuts (auto) Absolute Lymphs (auto) Absolute Monos (auto) Absolute Eos (auto) Absolute Basos (auto) Absolute Nucleated RBC Immature Gran % Neutrophils % Band Neutrophils % Lymphocytes % Monocytes % Eosinophils % Metamyelocytes % Myelocytes % Nucleated RBC % Normal RBC Morphology Polychromasia Sodium 137 Potassium 3.3 L Chloride 105 Carbon Dioxide 30 Anion Gap 2 BUN 8 Creatinine 0.40 L Est GFR ( Amer) 199.8 Est GFR (Non-Af Amer) 165.1 BUN/Creatinine Ratio 20.0 Glucose 138 H POC Glucose (mg/dL) 163 H 153 H Calcium 7.2 L Phosphorus 2.3 L Magnesium 1.9 Total Bilirubin 0.40 AST 14 ALT 7 Alkaline Phosphatase 48 Total Protein 4.2 L Albumin 1.9 L Globulin 2.3 Albumin/Globulin Ratio 0.8 L Prealbumin 7 L Triglycerides 107 Cholesterol 51 Impression: s/p sigmoid colectomy POD #9 s/p POD #5 return to OR for exploration with enterotomy nl LVEF on TTE atelectasis 2/2 immobility anemia hypokalemia and low phos severe malnutrition Plan: continue ABX per ID Repeat CXR Incentive spirometry and OOB to chair and attempt to ambulate Stop Morphine DIETETIC TECH and switch to Morphine PRN Replenish lytes Hold IVF's. Continue TPN will hold on CT scan of abdomen now as appears to be improving Critical Care Time: 45
--- NOTE | 2019-06-04 12:11 | PN ---
Progress Note - Progress Note Date of Service: 06/04/19 SOAP: Subjective: seen in chair in ICU room, "I feel better than yesterday" - flatus [] Objective: Vital Signs Temp 98.3 F 06/04/19 08:00 Pulse 92 06/04/19 11:00 Resp 16 06/04/19 11:00 BP 103/60 06/04/19 11:00 Pulse Ox 97 06/04/19 11:00 Intake & Output 06/03/19 06/04/19 06/04/19 18:59 06:59 18:59 Intake Total 719 1649 Output Total 745 1970 1125 Balance -26 -321 -1125 Weight 207 lb 9 oz Intake: IV Fluids 501 1052 ABX - FLAGYL 182 D5W 1/2 NS 20 meq KCL 361 733 NS 140 137 IVPB 218 30 ABX - CEFEPIME 72 30 ABX - FLAGYL 146 TPN/PPN 567 Output: NG Tube Drainage Amount 600 PIETRO #1 10 15 PIETRO #2 20 30 Wound Vac 625 Fiore 792 126 1842 Laboratory Tests 06/03/19 06/04/19 06/04/19 05:55 04:25 04:25 WBC 31.2 H 25.5 H Potassium 3.3 L PEX: Gen: NAD HEENT: NG in place with light green bilious output Chest: CTA CVS: RRR ABD: distended, non tender, vac in place midline, PIETRO x 2 with serous drainage : fi[place] with clear urine EXT: calves soft non tender Assessment: POD 10 s/p sigmoid colectomy, POD 6 s/p enterotomy and placement of vac dressing, ABX day 6, now cefepime and flagyl with now improved white count 25.5 (31) diuresing (20mg lasix today, 10 mg lasix yesterday) on TPN [] Plan: Continue ng tube until flatus, encouraged deep breathing, continue IV abx per ID, cont ICU management, hold repeat CT for now, d/w Dr Frankel ICU, Dr Ponce []
[2019-06-04] MEDS: Morphine INJ* 2 MG/ML 1 ML SYRINGE (TWO MG - NEW SYRINGE VERSION) IV PRN ×5 (13:06→22:23)
[2019-06-04] MEDS: TPN* 24 HR with Dextrose 50% Water* 500 ML, Amino Acid Infusion 10%* 850 ML, Sterile Wa... CENTR SCH ×12 (17:01)
[2019-06-05] MEDS: Morphine INJ* 2 MG/ML 1 ML SYRINGE (TWO MG - NEW SYRINGE VERSION) IV PRN ×9 (00:03→23:11)
[2019-06-05] MEDS: metroNIDAZOLE IV 500 MG/100ML* 500 MG/100 ML BAG IVPB SCH ×3 (04:36→21:42)
[2019-06-05] MEDS: Heparin VIAL(*) 5000 UNITS/ML VIAL (FIVE THOUSAND) SUBCUT SCH ×4 (04:44→20:48)
[2019-06-05 04:57] LABS: Hematocrit 25 % (35-47); Mean Corpuscular HGB Conc 32 g/dL (31-36); Mean Corpuscular Hemoglobin 26 pg (27-31); Mean Corpuscular Volume 82 fL (80-97); Mean Platelet Volume 7.7 fL (7.4-10.4); Platelet Count 295 10^3/uL (150-450); Red Blood Count 3.05 10^6 /uL (3.70-4.87); Red Cell Distribution Width 18 % (10-15); White Blood Count 22.4 10^3/uL (3.5-10.8)
[2019-06-05 05:08] LABS: Albumin/Globulin Ratio 0.8 (1-3); BUN/Creatinine Ratio 26.5 (8-20); Calcium 7.5 mg/dL (8.6-10.3); EGFR Non-African American 199.2 (>60); Globulin 2.5 g/dL (2-4); Magnesium 1.9 mg/dL (1.9-2.7); Phosphorus 2.2 mg/dL (2.5-5.0); Potassium 3.8 mmol/L (3.5-5.0); Total Bilirubin 0.4 mg/dL (0.2-1.0); Total Protein 4.5 g/dL (6.4-8.9)
[2019-06-05 05:25] LABS: ABS Basophils 0.1 10^3/ul (0-0.2); ABS Eosinophils 0.3 10^3/ul (0-0.6); ABS Lymphocytes 1.8 10^3/ul (1.0-4.8); ABS Monocytes 1.3 10^3/ul (0-0.8); ABS Neutrophils 18.8 10^3/ul (1.5-7.7); Eosinophil % 1.6 %; Lymphocyte % 8.1 %; Nucleated Red Blood Cells % 0.1
[2019-06-05 05:30] LABS: Polychromasia 1+
[2019-06-05 05:31] LABS: Microcytosis 2+
[2019-06-05] MEDS: Cefepime 2 GM in Dextrose(*) 2 GM/50 ML BAG IV SCH ×2 (08:24→20:48)
[2019-06-05] MEDS: Docusate CAP* 100 MG PO SCH ×2 (08:26→20:48)
[2019-06-05] MEDS: Senna TAB 8.6 mg* TAB PO SCH (08:26)
[2019-06-05] MEDS: Levothyroxine INJ* 100 MCG/5 ML VIAL IV SCH (08:29)
[2019-06-05] MEDS ORDERED: Furosemide IV* 10 MG/ML 2 ML VIAL (20 MG) IV ONE (09:21)
--- NOTE | 2019-06-05 09:25 | PN ---
Progress Note - Progress Note Date of Service: 06/05/19 SOAP: Subjective: [] no flatus or bm, denies pain Objective: [] Temp Pulse Resp BP Pulse Ox 98.5 F 85 18 109/59 97 06/05/19 08:00 06/05/19 09:00 06/05/19 09:00 06/05/19 08:00 06/05/19 09:00 Laboratory Last Values WBC 22.4 10^3/uL (3.5-10.8) H 06/05/19 04:25 RBC 3.05 10^6 /uL (3.70-4.87) L 06/05/19 04:25 Hgb 8.0 g/dL (12.0-16.0) L 06/05/19 04:25 Hct 25 % (35-47) L 06/05/19 04:25 MCV 82 fL (80-97) 06/05/19 04:25 MCH 26 pg (27-31) L 06/05/19 04:25 MCHC 32 g/dL (31-36) 06/05/19 04:25 RDW 18 % (10-15) H 06/05/19 04:25 Plt Count 295 10^3/uL (150-450) 06/05/19 04:25 MPV 7.7 fL (7.4-10.4) 06/05/19 04:25 Neut % (Auto) 84.1 % 06/05/19 04:25 Lymph % (Auto) 8.1 % 06/05/19 04:25 [place] % (Auto) 5.8 % 06/05/19 04:25 Eos % (Auto) 1.6 % 06/05/19 04:25 Baso % (Auto) 0.4 % 06/05/19 04:25 Absolute Neuts (auto) 18.8 10^3/ul (1.5-7.7) H 06/05/19 04:25 Absolute Lymphs (auto) 1.8 10^3/ul (1.0-4.8) 06/05/19 04:25 Absolute Monos (auto) 1.3 10^3/ul (0-0.8) H 06/05/19 04:25 Absolute Eos (auto) 0.3 10^3/ul (0-0.6) 06/05/19 04:25 Absolute Basos (auto) 0.1 10^3/ul (0-0.2) 06/05/19 04:25 Absolute Nucleated RBC 0.0 10^3/ul 06/05/19 04:25 Immature Gran % 19.0 % (0-9) H 06/05/19 04:25 Neutrophils % 74.0 % 06/05/19 04:25 Band Neutrophils % 11.0 % (0-8) H 06/05/19 04:25 Lymphocytes % 4.0 % 06/05/19 04:25 Monocytes % 2.0 % 06/05/19 04:25 Eosinophils % 1.0 % 06/05/19 04:25 Basophils % 0.0 % 06/03/19 05:55 Metamyelocytes % 5.0 % (0-2) H 06/05/19 04:25 Myelocytes % 2.0 % (0-1) H 06/05/19 04:25 Promyelocytes % 1.0 % 06/05/19 04:25 Nucleated RBC % 0.1 06/05/19 04:25 Normal RBC Morphology Not Reportable 06/05/19 04:25 Polychromasia 1+ 06/05/19 04:25 Anisocytosis 1+ 06/03/19 05:55 Microcytosis 2+ 06/05/19 04:25 INR (Anticoag Therapy) 1.18 (0.82-1.09) H 06/01/19 04:41 Sodium 135 mmol/L (135-145) 06/05/19 04:25 Potassium 3.8 mmol/L (3.5-5.0) 06/05/19 04:25 Chloride 104 mmol/L (101-111) 06/05/19 04:25 Carbon Dioxide 30 mmol/L (22-32) 06/05/19 04:25 Anion Gap 1 mmol/L (2-11) L 06/05/19 04:25 BUN 9 mg/dL (6-24) 06/05/19 04:25 Creatinine 0.34 mg/dL (0.51-0.95) L 06/05/19 04:25 Est GFR ( Amer) 241.0 (>60) 06/05/19 04:25 Est GFR (Non-Af Amer) 199.2 (>60) 06/05/19 04:25 BUN/Creatinine Ratio 26.5 (8-20) H 06/05/19 04:25 Glucose 145 mg/dL (70-100) H 06/05/19 04:25 POC Glucose (mg/dL) 168 mg/dL (70-100) H 06/05/19 08:23 Lactic Acid 1.4 mmol/L (0.5-2.0) 05/29/19 11:42 Calcium 7.5 mg/dL (8.6-10.3) L 06/05/19 04:25 Ionized Calcium 1.05 mmol/L (1.16-1.32) L 06/02/19 05:02 Phosphorus 2.2 mg/dL (2.5-5.0) L 06/05/19 04:25 Magnesium 1.9 mg/dL (1.9-2.7) 06/05/19 04:25 Total Bilirubin 0.40 mg/dL (0.2-1.0) 06/05/19 04:25 AST 17 U/L (13-39) 06/05/19 04:25 ALT 8 U/L (7-52) 06/05/19 04:25 Alkaline Phosphatase 47 U/L (34-104) 06/05/19 04:25 Troponin I 0.02 ng/mL (<0.04) 06/02/19 05:02 Total Protein 4.5 g/dL (6.4-8.9) L 06/05/19 04:25 Albumin 2.0 g/dL (3.2-5.2) L 06/05/19 04:25 Globulin 2.5 g/dL (2-4) 06/05/19 04:25 Albumin/Globulin Ratio 0.8 (1-3) L 06/05/19 04:25 Prealbumin 8 mg/dL (18-38) L 06/05/19 04:25 Triglycerides 89 mg/dL 06/05/19 04:25 Cholesterol 53 mg/dL 06/05/19 04:25 Urine Color Yellow 06/01/19 20:50 Urine Appearance Turbid 06/01/19 20:50 Urine pH 5.0 (5-9) 06/01/19 20:50 Ur Specific [place] 1.027 (1.010-1.030) 06/01/19 20:50 Urine Protein Negative (Negative) 06/01/19 20:50 Urine Ketones Negative (Negative) 06/01/19 20:50 Urine Blood 1+ (Negative) A 06/01/19 20:50 Urine Nitrate Negative (Negative) 06/01/19 20:50 Urine Bilirubin Negative (Negative) 06/01/19 20:50 Urine Urobilinogen Negative (Negative) 06/01/19 20:50 Ur Leukocyte Esterase 1+ (Negative) A 06/01/19 20:50 Urine WBC (Auto) Absent (Absent) 06/01/19 20:50 Urine RBC (Auto) 3+(>10/hpf) (Absent) A 06/01/19 20:50 Amorphous Crystals Present (Absent) A 06/01/19 20:50 Urine Bacteria Absent (Absent) 06/01/19 20:50 Urine Glucose Negative (Negative) 06/01/19 20:50 Intake & Output 06/03/19 06/04/19 06/05/19 06/06/19 06:59 06:59 06:59 06:59 Intake Total 1806 2368 2361 Output Total 2835 2715 3895 510 Balance -1029 -347 -1534 -510 Weight 207 lb 14.334 oz 207 lb 9 oz 206 lb 9 oz Intake: IV Fluids 1566 1553 443 ABX - CEFEPIME 55 ABX - FLAGYL 960 182 139 D5W 1/2 NS 20 meq KCL 1094 NS 50 277 249 Potassium 556 IVPB 240 248 274 ABX - CEFEPIME 102 ABX - FLAGYL 240 146 Potassium 274 TPN/PPN 567 1644 Output: NG Tube Drainage Amount 990 684 9620 G Tube 1400 PIETRO #1 65 25 25 PIETRO #2 55 50 40 Wound Vac 350 625 40 Good 615 1415 2790 510 wound vac intact drains-serous abdomen soft skin no cellulitis Assessment: []stable, improving, diuresing Plan: []cont tpn, abx, await return bowel function change wound vac soon
[2019-06-05] MEDS ORDERED: Lorazepam PYXIS KEY ONE (09:45)
[2019-06-05] MEDS ORDERED: LORazepam INJ* 2 MG/ML 1 ML VIAL ONE (09:45)
[2019-06-05] MEDS ORDERED: Lorazepam PYXIS KEY PRN (10:30)
[2019-06-05] MEDS: SPIRIVA Respimat* (tiotropium) 2.5 mcg/inh Inhaler INH SCH (10:45)
[2019-06-05] MEDS ORDERED: LORazepam INJ* 2 MG/ML 1 ML VIAL IV PUSH ONE (11:00)
[2019-06-05] MEDS: TPN* 24 HR with Dextrose 50% Water* 500 ML, Amino Acid Infusion 10%* 850 ML, Sterile Wa... CENTR SCH ×12 (16:54)
[2019-06-05] MEDS: Ondansetron INJ* 2 MG/ML VIAL IV PRN (22:45)
[2019-06-06] MEDS: Pantoprazole IV* 40 MG IV SCH ×2 (00:13→09:25)
[2019-06-06] MEDS: Morphine INJ* 2 MG/ML 1 ML SYRINGE (TWO MG - NEW SYRINGE VERSION) IV PRN ×10 (02:57→23:44)
[2019-06-06] MEDS: metroNIDAZOLE IV 500 MG/100ML* 500 MG/100 ML BAG IVPB SCH ×3 (05:55→21:52)
[2019-06-06] MEDS: Heparin VIAL(*) 5000 UNITS/ML VIAL (FIVE THOUSAND) SUBCUT SCH ×3 (05:55→20:58)
[2019-06-06] MEDS: SPIRIVA Respimat* (tiotropium) 2.5 mcg/inh Inhaler INH SCH (08:20)
[2019-06-06] MEDS: Docusate CAP* 100 MG PO SCH ×2 (09:24→20:56)
[2019-06-06] MEDS: Senna TAB 8.6 mg* TAB PO SCH (09:24)
[2019-06-06] MEDS: Levothyroxine INJ* 100 MCG/5 ML VIAL IV SCH (09:28)
[2019-06-06] MEDS: Cefepime 2 GM in Dextrose(*) 2 GM/50 ML BAG IV SCH ×2 (09:30→20:56)
[2019-06-06] MEDS ORDERED: Furosemide IV* 10 MG/ML 2 ML VIAL (20 MG) IV ONE (12:24)
[2019-06-06] MEDS ORDERED: Al Hydrox/Mg Hydrox/Simet LIQ* 30 ML UDC PO PRN (12:27)
--- NOTE | 2019-06-06 13:39 | PN ---
Progress Note - Progress Note Date of Service: 06/06/19 SOAP: Subjective: Just had large bowel movement Belching, some flatus Ambulated in halls Pain controlled Objective: [] Temp Pulse Resp BP Pulse Ox 100.0 F 95 38 122/75 93 06/06/19 12:00 06/06/19 13:00 06/06/19 13:00 06/06/19 13:00 06/06/19 13:00 Intake & Output 06/04/19 06/05/19 06/06/19 06/07/19 06:59 06:59 06:59 06:59 Intake Total 2368 2361 2672 Output Total 2715 3895 5415 1220 Balance -190 -1534 -2743 -1220 Weight 207 lb 9 oz 206 lb 9 oz Intake: IV Fluids 1553 443 188 ABX - CEFEPIME 55 ABX - FLAGYL 182 139 117 D5W 1/2 NS 20 meq KCL 1094 NS 277 249 71 IVPB 248 274 405 ABX - CEFEPIME 102 105 ABX - FLAGYL 146 300 Potassium 274 TPN/PPN 567 1644 1899 Oral 180 Output: NG Tube Drainage Amount 600 1000 1050 PIETRO #1 25 25 20 PIETRO #2 50 40 55 Wound Vac 625 40 300 100 Good 1415 2790 3990 1120 PEX: Comfortable, somewhat tachypneic Lungs clear with decreased breath sounds at bases Abd is distended, firm, wound vac in place. PIETRO with thicker brownish fluid in bulbs EXT mild edema Assessment: S/P sigmoid colectomy, return to OR for repair of small bowel injury Sepsis-improving Ileus-resolving Plan: D/C ngt-start clears TPN IV abx Increase activity Labs in AM
[2019-06-06] MEDS: TPN* 24 HR with Dextrose 50% Water* 500 ML, Amino Acid Infusion 10%* 850 ML, Sterile Wa... CENTR SCH ×12 (17:06)
[2019-06-07] MEDS: Morphine INJ* 2 MG/ML 1 ML SYRINGE (TWO MG - NEW SYRINGE VERSION) IV PRN ×9 (03:16→22:06)
[2019-06-07] MEDS: metroNIDAZOLE IV 500 MG/100ML* 500 MG/100 ML BAG IVPB SCH ×3 (04:59→21:00)
[2019-06-07] MEDS: Heparin VIAL(*) 5000 UNITS/ML VIAL (FIVE THOUSAND) SUBCUT SCH ×3 (05:20→22:06)
[2019-06-07 05:52] LABS: Hematocrit 27 % (35-47); Hemoglobin 8.7 g/dL (12.0-16.0); Mean Corpuscular HGB Conc 32 g/dL (31-36); Mean Corpuscular Hemoglobin 26 pg (27-31); Mean Corpuscular Volume 82 fL (80-97); Platelet Count 453 10^3/uL (150-450); Red Blood Count 3.35 10^6 /uL (3.70-4.87); Red Cell Distribution Width 18 % (10-15); White Blood Count 21.1 10^3/uL (3.5-10.8)
[2019-06-07 06:11] LABS: Albumin 2.3 g/dL (3.2-5.2); Albumin/Globulin Ratio 0.8 (1-3); BUN/Creatinine Ratio 25.6 (8-20); Calcium 7.6 mg/dL (8.6-10.3); EGFR African American 183.8 (>60); EGFR Non-African American 151.9 (>60); Phosphorus 2.6 mg/dL (2.5-5.0); Potassium 4.1 mmol/L (3.5-5.0); Total Bilirubin 0.3 mg/dL (0.2-1.0); Total Protein 5.3 g/dL (6.4-8.9)
[2019-06-07 06:14] LABS: Polychromasia 1+
[2019-06-07 06:27] LABS: ABS Basophils 0.1 10^3/ul (0-0.2); ABS Eosinophils 0.3 10^3/ul (0-0.6); ABS Lymphocytes 1.5 10^3/ul (1.0-4.8); ABS Monocytes 1.7 10^3/ul (0-0.8); ABS Neutrophils 17.4 10^3/ul (1.5-7.7); Eosinophil % 1.6 %; Lymphocyte % 7.1 %
[2019-06-07] MEDS: SPIRIVA Respimat* (tiotropium) 2.5 mcg/inh Inhaler INH SCH (07:03)
[2019-06-07] MEDS: Cefepime 2 GM in Dextrose(*) 2 GM/50 ML BAG IV SCH ×2 (09:28→21:00)
[2019-06-07] MEDS: Levothyroxine INJ* 100 MCG/5 ML VIAL IV SCH (09:28)
[2019-06-07] MEDS: Pantoprazole IV* 40 MG IV SCH (09:28)
[2019-06-07] MEDS: Docusate CAP* 100 MG PO SCH ×2 (09:29→22:06)
[2019-06-07] MEDS: Senna TAB 8.6 mg* TAB PO SCH (09:29)
--- NOTE | 2019-06-07 11:16 | PN ---
Progress Note - Progress Note Date of Service: 06/07/19 SOAP: Subjective: Slept well last night Had BM this AM, minimal flatus. Feels distended. Belching, taking some po Objective: Temp Pulse Resp BP Pulse Ox 98.4 F 88 30 116/71 93 06/07/19 07:57 06/07/19 10:00 06/07/19 10:00 06/07/19 10:00 06/07/19 10:00 Intake & Output 06/05/19 06/06/19 06/07/19 06/08/19 06:59 06:59 06:59 06:59 Intake Total 2361 2672 2475 Output Total 3895 5415 4280 400 Balance -1534 -2743 -1805 -400 Weight 206 lb 9 oz 207 lb 1 oz Intake: IV Fluids 443 188 159 ABX - CEFEPIME 55 29 ABX - FLAGYL 139 117 NS 249 71 130 IVPB 274 405 300 ABX - CEFEPIME 105 100 ABX - FLAGYL 300 200 Potassium 274 TPN/PPN 1644 1899 1746 Oral 180 270 Output: NG Tube Drainage Amount 1000 1050 PIETRO #1 25 20 5 PIETRO #2 40 55 20 Wound Vac 40 300 500 Good 2790 3990 3755 400 Other: Date of Last Bowel 06/06/19 Movement # Bowel Movements 1 Estimated Stool Amount Small PEX: Comfortable Lungs at bases, Cor is RRR Abd is distended and slightly firm, wound vac in place. Few bowel sounds, some higher pitched. Wound vac in place. 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 in bulbs Laboratory Results - last 24 hr 06/06/19 06/06/19 06/06/19 13:09 16:59 19:19 WBC RBC Hgb Hct MCV MCH MCHC RDW Plt Count MPV Neut % (Auto) Lymph % (Auto) [place] % (Auto) Eos % (Auto) Baso % (Auto) Absolute Neuts (auto) Absolute Lymphs (auto) Absolute Monos (auto) Absolute Eos (auto) Absolute Basos (auto) Absolute Nucleated RBC Immature Gran % Neutrophils % Band Neutrophils % Lymphocytes % Monocytes % Eosinophils % Metamyelocytes % Myelocytes % Nucleated RBC % Nucleated RBCs/100 WBC Normal RBC Morphology Polychromasia Anisocytosis Sodium Potassium Chloride Carbon Dioxide Anion Gap BUN Creatinine Est GFR ( Amer) Est GFR (Non-Af Amer) BUN/Creatinine Ratio Glucose POC Glucose (mg/dL) 142 H 183 H 143 H Calcium Phosphorus Magnesium Total Bilirubin AST ALT Alkaline Phosphatase Total Protein Albumin Globulin Albumin/Globulin Ratio Prealbumin Triglycerides Cholesterol 06/06/19 06/07/19 06/07/19 23:48 03:21 05:35 WBC 21.1 H RBC 3.35 L Hgb 8.7 L Hct 27 L MCV 82 MCH 26 L MCHC 32 RDW 18 H Plt Count 453 H D MPV 8.0 Neut % (Auto) 82.7 Lymph % (Auto) 7.1 [place] % (Auto) 7.9 Eos % (Auto) 1.6 Baso % (Auto) 0.7 Absolute Neuts (auto) 17.4 H Absolute Lymphs (auto) 1.5 Absolute Monos (auto) 1.7 H Absolute Eos (auto) 0.3 Absolute Basos (auto) 0.1 Absolute Nucleated RBC 0.0 Immature Gran % 7.0 Neutrophils % 75.0 Band Neutrophils % 1.0 Lymphocytes % 5.0 Monocytes % 10.0 Eosinophils % 3.0 Metamyelocytes % 2.0 Myelocytes % 4.0 H Nucleated RBC % 0.0 Nucleated RBCs/100 WBC 1.0 H Normal RBC Morphology Not Reportable Polychromasia 1+ Anisocytosis 1+ Sodium Potassium Chloride Carbon Dioxide Anion Gap BUN Creatinine Est GFR ( Amer) Est GFR (Non-Af Amer) BUN/Creatinine Ratio Glucose POC Glucose (mg/dL) 175 H 149 H Calcium Phosphorus Magnesium Total Bilirubin AST ALT Alkaline Phosphatase Total Protein Albumin Globulin Albumin/Globulin Ratio Prealbumin Triglycerides Cholesterol 06/07/19 05:35 WBC RBC Hgb Hct MCV MCH MCHC RDW Plt Count MPV Neut % (Auto) Lymph % (Auto) [place] % (Auto) Eos % (Auto) Baso % (Auto) Absolute Neuts (auto) Absolute Lymphs (auto) Absolute Monos (auto) Absolute Eos (auto) Absolute Basos (auto) Absolute Nucleated RBC Immature Gran % Neutrophils % Band Neutrophils % Lymphocytes % Monocytes % Eosinophils % Metamyelocytes % Myelocytes % Nucleated RBC % Nucleated RBCs/100 WBC Normal RBC Morphology Polychromasia Anisocytosis Sodium 135 Potassium 4.1 Chloride 106 Carbon Dioxide 25 Anion Gap 4 BUN 11 Creatinine 0.43 L Est GFR ( Amer) 183.8 Est GFR (Non-Af Amer) 151.9 BUN/Creatinine Ratio 25.6 H Glucose 145 H POC Glucose (mg/dL) Calcium 7.6 L Phosphorus 2.6 Magnesium 2.0 Total Bilirubin 0.30 AST 17 ALT 8 Alkaline Phosphatase 62 Total Protein 5.3 L Albumin 2.3 L Globulin 3.0 Albumin/Globulin Ratio 0.8 L Prealbumin 12 L Triglycerides 125 Cholesterol 65 Assessment: S/P sigmoid colectomy, small bowel injury Sepsis Ileus Wound vac Malnutrition Plan: Tx to [facility] TPN Wound care Clear liquids Increase activity Labs in AM
[2019-06-07] MEDS: TPN* 24 HR with Dextrose 50% Water* 500 ML, Amino Acid Infusion 10%* 850 ML, Sterile Wa... CENTR SCH ×12 (17:31)
[2019-06-07] MEDS: Ondansetron INJ* 2 MG/ML VIAL IV PRN (20:00)
[2019-06-08] MEDS: Morphine INJ* 2 MG/ML 1 ML SYRINGE (TWO MG - NEW SYRINGE VERSION) IV PRN ×6 (00:08→20:17)
[2019-06-08] MEDS: metroNIDAZOLE IV 500 MG/100ML* 500 MG/100 ML BAG IVPB SCH ×2 (05:27→22:13)
[2019-06-08 06:19] LABS: Albumin 2.4 g/dL (3.2-5.2); Albumin/Globulin Ratio 0.8 (1-3); Calcium 7.6 mg/dL (8.6-10.3); EGFR African American 199.8 (>60); EGFR Non-African American 165.1 (>60); Globulin 3.2 g/dL (2-4); Potassium 4.2 mmol/L (3.5-5.0); Total Bilirubin 0.3 mg/dL (0.2-1.0); Total Protein 5.6 g/dL (6.4-8.9)
[2019-06-08] MEDS: Heparin VIAL(*) 5000 UNITS/ML VIAL (FIVE THOUSAND) SUBCUT SCH ×3 (06:39→22:18)
[2019-06-08 06:43] LABS: Hematocrit 27 % (35-47); Hemoglobin 8.6 g/dL (12.0-16.0); Mean Corpuscular HGB Conc 32 g/dL (31-36); Mean Corpuscular Hemoglobin 26 pg (27-31); Mean Corpuscular Volume 81 fL (80-97); Mean Platelet Volume 7.9 fL (7.4-10.4); Platelet Count 503 10^3/uL (150-450); Red Blood Count 3.29 10^6 /uL (3.70-4.87); Red Cell Distribution Width 18 % (10-15); White Blood Count 20.3 10^3/uL (3.5-10.8)
[2019-06-08 06:55] LABS: Albumin 2.4 g/dL (3.2-5.2); Albumin/Globulin Ratio 0.8 (1-3); BUN/Creatinine Ratio 24.4 (8-20); Calcium 7.6 mg/dL (8.6-10.3); EGFR African American 194.2 (>60); EGFR Non-African American 160.5 (>60); Globulin 3.2 g/dL (2-4); Magnesium 1.9 mg/dL (1.9-2.7); Phosphorus 2.4 mg/dL (2.5-5.0); Potassium 4.2 mmol/L (3.5-5.0); Total Bilirubin 0.4 mg/dL (0.2-1.0); Total Protein 5.6 g/dL (6.4-8.9)
[2019-06-08 07:29] LABS: ABS Basophils 0.2 10^3/ul (0-0.2); ABS Eosinophils 0.5 10^3/ul (0-0.6); ABS Lymphocytes 2.2 10^3/ul (1.0-4.8); ABS Monocytes 2.1 10^3/ul (0-0.8); ABS Neutrophils 15.4 10^3/ul (1.5-7.7); Eosinophil % 2.2 %; Lymphocyte % 10.7 %; Nucleated Red Blood Cells % 0.1
[2019-06-08 07:31] LABS: Polychromasia 1+
[2019-06-08] MEDS: Cefepime 2 GM in Dextrose(*) 2 GM/50 ML BAG IV SCH ×2 (09:21→20:50)
[2019-06-08] MEDS: Pantoprazole IV* 40 MG IV SCH (09:23)
[2019-06-08] MEDS: Levothyroxine INJ* 100 MCG/5 ML VIAL IV SCH (09:23)
[2019-06-08] MEDS: Senna TAB 8.6 mg* TAB PO SCH (09:26)
[2019-06-08] MEDS: Docusate CAP* 100 MG PO SCH ×2 (09:26→20:50)
--- NOTE | 2019-06-08 11:02 | PN ---
Progress Note - Progress Note Date of Service: 06/08/19 SOAP: Subjective: CC: Leukocytosis HPI: Ms. Mendoza is a 58 year old woman with PMH significant for obesity, recurrent diverticulitis, asthma, VIKTOR, hypothyroidism, and sciatica. S/P sigmoidectomy and then laparotomy for small bowel leak and repair of enterotomy. Has had leukocytosis since then as well as ileus. Poor appetite, currently on TPN, and tolerating a clear liquid diet. Reports flatus and loose stools. Salome fever, chills, cough, shortness of breath, nausea, vomiting, or diarrhea. Objective: Vital Signs - 8 hr 06/08/19 07:57 Temperature 98.5 F Pulse Rate 83 Respiratory 17 Rate Blood Pressure 126/65 (mmHg) O2 Sat by Pulse 95 Oximetry Physical Exam: General: NAD, sitting up in a chair Neurological: Alert and Oriented x 4 HEENT: Moist MM, no thrush Cardiovascular: Heart rate regular Respiratory: Lung sounds clear, diminished Abdominal: Bowel sounds present; ABD large, soft, and non tender Skin: No rash. PICC Line to right UE, site benign Laboratory Results - last 24 hr 06/08/19 06/08/19 06:25 06:25 WBC 20.3 H RBC 3.29 L Hgb 8.6 L Hct 27 L MCV 81 MCH 26 L MCHC 32 RDW 18 H Plt Count 503 H D MPV 7.9 Neut % (Auto) 75.7 Lymph % (Auto) 10.7 Maverick % (Auto) 10.5 Eos % (Auto) 2.2 Baso % (Auto) 0.9 Absolute Neuts (auto) 15.4 H Absolute Lymphs (auto) 2.2 Absolute Monos (auto) 2.1 H Absolute Eos (auto) 0.5 Absolute Basos (auto) 0.2 Absolute Nucleated RBC 0.0 Immature Gran % 7.0 Neutrophils % 66.0 Lymphocytes % 16.0 Monocytes % 10.0 Eosinophils % 1.0 Metamyelocytes % 7.0 H Nucleated RBC % 0.1 Normal RBC Morphology Not Reportable Polychromasia 1+ Sodium 133 L Potassium 4.2 Chloride 106 Carbon Dioxide 21 L Anion Gap 6 BUN 10 Creatinine 0.41 L Est GFR ( Amer) 194.2 Est GFR (Non-Af Amer) 160.5 BUN/Creatinine Ratio 24.4 H Glucose 131 H POC Glucose (mg/dL) Calcium 7.6 L Phosphorus 2.4 L Magnesium 1.9 Total Bilirubin 0.40 AST 16 ALT 9 Alkaline Phosphatase 67 Total Protein 5.6 L Albumin 2.4 L Globulin 3.2 Albumin/Globulin Ratio 0.8 L Prealbumin 13 L Triglycerides 125 Cholesterol 64 Microbiology 06/03/19 09:24 Aerobic Blood Culture - Final Blood Line No Growth Day 5 Anaerobic Blood Culture - Final No Growth Day 5 06/03/19 13:10 Aerobic Blood Culture - Preliminary Blood Venous No Growth Day 4 Anaerobic Blood Culture - Preliminary No Growth Day 4 05/29/19 11:46 Aerobic Blood Culture - Final Blood Venous No Growth Day 5 Anaerobic Blood Culture - Final No Growth Day 5 05/29/19 10:28 Aerobic Blood Culture - Final Blood Venous No Growth Day 5 Anaerobic Blood Culture - Final No Growth Day 5 06/01/19 20:50 Urine Culture - Final Urine No Growth (<1,000 CFU/mL) 05/29/19 11:20 Nasal Screen MRSA (PCR) - Final Nasal Mrsa Not Detected Assessment: 1. Leukocytosis. Now trending down from peak at ~31. Afebrile. No infiltrate on CT/CXR, no ABD abscess. Blood cultures with no growth on day 4/5. Now also with thrombocytosis (secondary to infection, often lags infection and doesn't mean that there is worsening infection at this time). 2. Obesity. BMI 36.7. 3. Recurrent diverticulitis. S/P sigmoidectomy. 4. Pleural effusions with atelectasis. Plan: Continue cefepime 2 gm IV Q12hrs. Will decrease Flagyl to 500 mg IV Q12hrs and see if this helps with appetite. ABX day 12 since laparotomy
[2019-06-08] MEDS: SPIRIVA Respimat* (tiotropium) 2.5 mcg/inh Inhaler INH SCH (12:01)
--- NOTE | 2019-06-08 12:39 | PN ---
Progress Note - Progress Note Date of Service: 06/08/19 SOAP: Subjective: NAD, sitting in chair at bedside. "Feeling better than yesterday" + Flatus [] Objective: Vital Signs Temp 97.9 F 06/08/19 11:22 Pulse 95 06/08/19 11:22 Resp 18 06/08/19 11:22 BP 113/66 06/08/19 11:22 Pulse Ox 96 06/08/19 11:22 Intake & Output 06/07/19 06/08/19 06/08/19 18:59 06:59 18:59 Intake Total 969 400 110 Output Total 1825 870 700 Balance -629 -470 -590 Intake: IV Fluids 60 ABX - FLAGYL 60 IVPB 160 110 ABX - CEFEPIME 50 ABX - FLAGYL 110 110 TPN/PPN 909 Oral 240 Output: PIETRO #1 5 PIETRO #2 15 Wound Vac 400 Urine 300 Good 1825 850 PEX: Gen: looks better, NG Tube out Chest: CTA CVS: RRR ABD: Soft, Vac dressing in place, PIETRO's with less output : Good with clear urine EXT: calves non tender [] Assessment:POD 14 s/p sigmoid colectomy, POD 10 s/p enterotomy and placement of vac dressing, ABX day 10, cefepime and flagyl with improving white count 20.3(21.1), Tx to ICU 05/29, back in [facility] 05/31, ICU 06/02, [facility] 06/07, now with NG Out, tolerating Clears, on TPN. [] Plan: PT today, OOB Ambulate, Deep Breathing encouraged, IS, Cont ABX, Daily Labs, replace lytes as needed, cont TPN, cont Vac dressing []
[2019-06-08] MEDS: Ondansetron INJ* 2 MG/ML VIAL IV PRN ×2 (14:01→20:17)
[2019-06-08] MEDS: TPN* 24 HR with Dextrose 50% Water* 500 ML, Amino Acid Infusion 10%* 850 ML, Sterile Wa... CENTR SCH ×12 (17:18)
[2019-06-09] MEDS: Morphine INJ* 2 MG/ML 1 ML SYRINGE (TWO MG - NEW SYRINGE VERSION) IV PRN ×5 (00:26→20:02)
[2019-06-09] MEDS: Ondansetron INJ* 2 MG/ML VIAL IV PRN ×2 (00:26→20:02)
[2019-06-09] MEDS ORDERED: Alteplase (CATHFLO)* 2 MG/2 ML VIAL IV ONE ×2 (05:00)
[2019-06-09] MEDS: Heparin VIAL(*) 5000 UNITS/ML VIAL (FIVE THOUSAND) SUBCUT SCH ×3 (05:59→21:27)
[2019-06-09 06:09] LABS: Hematocrit 25 % (35-47); Hemoglobin 8.1 g/dL (12.0-16.0); Mean Corpuscular HGB Conc 32 g/dL (31-36); Mean Corpuscular Hemoglobin 26 pg (27-31); Mean Corpuscular Volume 81 fL (80-97); Mean Platelet Volume 7.8 fL (7.4-10.4); Platelet Count 523 10^3/uL (150-450); Red Cell Distribution Width 18 % (10-15); White Blood Count 15.8 10^3/uL (3.5-10.8)
[2019-06-09 06:28] LABS: Albumin 2.4 g/dL (3.2-5.2); Albumin/Globulin Ratio 0.8 (1-3); BUN/Creatinine Ratio 18.2 (8-20); Calcium 7.4 mg/dL (8.6-10.3); EGFR Non-African American 147.9 (>60); Magnesium 1.8 mg/dL (1.9-2.7); Phosphorus 2.4 mg/dL (2.5-5.0); Total Bilirubin 0.4 mg/dL (0.2-1.0); Total Protein 5.4 g/dL (6.4-8.9)
[2019-06-09 07:53] LABS: ABS Basophils 0.2 10^3/ul (0-0.2); ABS Eosinophils 0.2 10^3/ul (0-0.6); ABS Lymphocytes 1.7 10^3/ul (1.0-4.8); ABS Monocytes 1.7 10^3/ul (0-0.8); Eosinophil % 1.4 %; Lymphocyte % 10.8 %
[2019-06-09] MEDS ORDERED: Alteplase (CATHFLO)* 2 MG VIAL IV ONE ×2 (08:00)
[2019-06-09] MEDS: Cefepime 2 GM in Dextrose(*) 2 GM/50 ML BAG IV SCH ×2 (08:22→20:16)
[2019-06-09] MEDS: Metoclopramide IV* 5 MG/ML 2 ML VIAL IV PRN (08:33)
[2019-06-09] MEDS: Pantoprazole IV* 40 MG IV SCH (08:36)
[2019-06-09] MEDS: Levothyroxine INJ* 100 MCG/5 ML VIAL IV SCH (08:37)
[2019-06-09] MEDS: SPIRIVA Respimat* (tiotropium) 2.5 mcg/inh Inhaler INH SCH (08:40)
--- NOTE | 2019-06-09 09:03 | PN ---
Progress Note - Progress Note Date of Service: 06/09/19 Note: S: POD #15 and 11. On day 12/ cefipime and flagyl. Seen this a.m. at which time she was feeling fairly well. Mild pain. No N/V. Leah reg diet, though early satiety. +BMs, formed. Ambulating. Good still in place. TPN running. Denies SOB. O: Vital Signs - 8 hr 06/09/19 06/09/19 06/09/19 01:07 01:30 03:33 Temperature 98.1 F 98.3 F Pulse Rate 91 97 Respiratory 30 28 30 Rate Blood Pressure 116/53 117/59 (mmHg) O2 Sat by Pulse 93 94 Oximetry 06/09/19 06/09/19 06/09/19 05:01 06:00 07:30 Temperature 99.5 F Pulse Rate 86 Respiratory 28 22 24 Rate Blood Pressure 116/67 (mmHg) O2 Sat by Pulse 96 Oximetry 06/09/19 06/09/19 07:32 08:30 Temperature 98.2 F Pulse Rate Respiratory 24 Rate Blood Pressure (mmHg) O2 Sat by Pulse Oximetry Intake and Output Last 24 Hours 06/07/19 06/08/19 06/09/19 06/10/19 06:59 06:59 06:59 06:59 Intake Total 2475 1369 2167 Output Total 7850 7224 5813 Balance -4123 -9075 -6444 Weight 207 lb 1 oz Intake: IV Fluids 159 60 ABX - CEFEPIME 29 ABX - FLAGYL 60 NS 130 IVPB 300 160 110 ABX - CEFEPIME 100 50 ABX - FLAGYL 200 110 110 TPN/PPN 2625 503 4917 Oral 270 240 520 Output: PIETRO #1 5 5 60 PIETRO #2 20 15 42 Wound Vac 500 775 Urine 300 Good 3755 9192 3300 Other: Date of Last Bowel 06/06/19 Movement # Bowel Movements 1 0 Estimated Stool Amount Small Gen: appears bright, smiling; NAD Heart: reg Lungs: upper alvarez clear; some coarse rhonchi in both bases Abd: midline VAC dressing in place; JPs: Left: light cloudy w/ particulate matter; Right: serous w/ particulate matter. Abd soft, though w/ sig edema; no sig tenderness Extr: trace edema Labs: Laboratory Tests 06/09/19 06/09/19 06:03 06:03 WBC 15.8 H Hgb 8.1 L Calcium 7.4 L Phosphorus 2.4 L Magnesium 1.8 L Albumin 2.4 L Prealbumin 14 L A: s/p sigmoid colectomy w/ return to OR for repair of enterotomy; VAC wound dressing; gradual improvement overall. P:asked Hospitalist team to see for medical followup from recent sepsis events. Discussed w/ Dr. Ponce. Will d/c TPN after current bag; d/c Good; order po analgesics; d/c planning for home VAC.
[2019-06-09] MEDS: metroNIDAZOLE IV 500 MG/100ML* 500 MG/100 ML BAG IVPB SCH ×2 (09:43→21:25)
[2019-06-09] MEDS: Senna TAB 8.6 mg* TAB PO SCH (09:43)
[2019-06-09] MEDS: Docusate CAP* 100 MG PO SCH ×2 (09:43→21:27)
--- NOTE | 2019-06-09 16:14 | CONS ---
CONSULTATION REPORT: DATE OF CONSULT: 06/09/19 REASON FOR CONSULT: "The patient should have a medicine provider if they have been in the intensive care unit." CHIEF COMPLAINT: Abdominal pain. HISTORY OF PRESENT ILLNESS: Shanda Mendoza is a 58-year-old female with past medical history of obesity, hypothyroidism, sciatica, obstructive sleep apnea, asthma, former smoker. She has been in the hospital since 05/25/19 for recurrent diverticulitis with planned elective sigmoid colectomy for which she is now postoperative day #15. Course was complicated by small bowel obstruction with leak and she is postoperative day #11 for enterotomy with wound VAC. She has had 2 transfers in and out of the ICU on 05/29/19 to and then 06/02/19 to 06/07/19 respectively. The latter was for worsening abdominal pain. Infectious Disease is on board to help managing the antibiotics for which she is on day #11, currently on cefepime and Flagyl. Blood cultures have been negative. No intraoperative cultures seemed to have been obtained. She has had improved leukocytosis of 15.8 down from 20.3. She is anemic, has thrombocytosis, hyperglycemia, hypomagnesemia and hypophosphatemia. She has been on TPN with advancement of diet. She is actually eating a little bit of a breakfast today. She walked the fowler twice. She continues to have some abdominal pain, currently 6/10. She is passing gas and burping more often. She had her Good removed this morning and has urinated twice so far. There is report of suspected candidal infection in her groin or buttocks. PAST MEDICAL HISTORY: Asthma; former smoker; obstructive sleep apnea, on CPAP; hypothyroidism; sciatica; diverticulitis, recurrent and also is status post sigmoid colectomy and enterotomy with wound VAC. PAST SURGICAL HISTORY: Includes right foot surgery, bilateral shoulder surgery , rotator cuff repair, bilateral carpal tunnel repair, right knee arthroscopy, C - section x3, hysterectomy. She had lysis of adhesions and incidental appendectomy, status post laparoscopic cholecystectomy. CURRENT MEDICATIONS: Include: 1. Cefepime 2 g b.i.d. 2. Docusate 100 mg p.o. b.i.d. 3. Heparin 5000 units subcutaneous t.i.d. 4. Levothyroxine 37.5 mcg IV daily. 5. Lidocaine viscous topical t.i.d. 6. Reglan 5 mg IV q.6 hours p.r.n. 7. Flagyl 500 mg p.o. q.12 hours. 8. Morphine 1 mg IV q.1 hour, due for renewal. 9. Protonix 40 mg IV daily. 10. Scopolamine patch daily. 11. Senna tab 1 tab p.o. daily. 12. Spiriva 2 puffs inhaled q.a.m. 13. Cathflo for her PICC line. ALLERGIES: ASPIRIN (nausea, vomiting), HYDROCODONE (hives). FAMILY HISTORY: Mother of heart disease at age 88. Father of heart disease at age 57. She has 5 brothers and 1 sister with extensive cancer history. Sister with kidney cancer, brother with breast cancer, another brother with colon cancer, and another brother with unspecified cancer. SOCIAL HISTORY: The patient is , 2 children, not currently working. She just finished her schooling and is planning to go to [email or web address]. She is a former smoker of half a pack per day for 15 to 20 years, quit in 2017. Denies any alcohol or drug use. REVIEW OF SYSTEMS: A complete 14-point review of systems negative except as per HPI. PHYSICAL EXAM: General Appearance: No acute distress. Vital Signs: Temperature 98.7, pulse 91, respiratory rate 22, satting 97% on room air, blood pressure 113/52. HEENT: Normocephalic, atraumatic. Pupils are equal, round, and reactive to light. Extraocular motions intact. No scleral icterus. Lungs : Clear to auscultation bilaterally with no wheezing, rales, or rhonchi. Cardiovascular: Regular rate and rhythm. No murmurs, rubs, or gallops. Abdomen : She has a midline incision with a wound VAC, 2 drains draining serosanguineous fluid and slight erythema around it. She is slightly tender to palpation diffusely. Extremities: 1+ pitting edema bilaterally. Neuro: Cranial nerves II through XII intact. DIAGNOSTIC STUDIES/LAB DATA: White count 15.8, hemoglobin 8.8, hematocrit 25, platelets 523. Sodium 135, potassium 4.0, chloride 110, carbon dioxide 22, BUN 8, creatinine 0.44, [id number], calcium 7.4, magnesium 1.8. Total bili 0.4, AST 13, ALT 8. Imaging: Recently, chest x-ray on 06/09/19 at 1 a.m. showed left pleural effusion that was small. ASSESSMENT AND PLAN: Shanda Mendoza is a 58-year-old female who has had a long course after elective sigmoid colectomy complicated by small bowel with leak, sepsis and postoperative day #11 for enterotomy with wound VAC, now on cefepime and Flagyl with ID consultation. Her leukocytosis is improving. She is still having intermittent abdominal pain. Last CT scan was on 06/02/19 when she was brought to the ICU for the second time and that showed no definite free fluid noted and no extraluminal air. There was moderately dilated loops of bowel noted with air-fluid levels, which may represent adynamic ileus. Recommend continuing ID recommendations with antibiotics, cefepime and Flagyl. She is being weaned off the TPN and is advancing her diet. We will continue ambulation. Continue pain control. Antiemetics as necessary. She is on IV levothyroxine but I will actually transition that to p.o. now as soon she is tolerating her solid food. Monitor her bowel movements. She does not have any diarrhea. She is a full code. Thank you for this interesting consult. We will continue to follow along. [id number]/[facility] #: [id number] ANGÉLICA
[2019-06-09] MEDS: Nystatin CREAM* 15 GM TUBE TOPICAL SCH (17:23)
[2019-06-09] MEDS: traMADol TAB* 50 MG PO PRN (17:23)
[2019-06-10] MEDS: traMADol TAB* 50 MG PO PRN ×3 (04:43→17:35)
[2019-06-10 05:12] LABS: Hematocrit 24 % (35-47); Hemoglobin 7.7 g/dL (12.0-16.0); Mean Corpuscular HGB Conc 33 g/dL (31-36); Mean Corpuscular Hemoglobin 27 pg (27-31); Mean Corpuscular Volume 82 fL (80-97); Mean Platelet Volume 7.7 fL (7.4-10.4); Platelet Count 489 10^3/uL (150-450); Red Cell Distribution Width 19 % (10-15); White Blood Count 14.4 10^3/uL (3.5-10.8)
[2019-06-10 05:38] LABS: BUN/Creatinine Ratio 21.7 (8-20); Calcium 7.5 mg/dL (8.6-10.3); EGFR Non-African American 140.5 (>60); Potassium 3.8 mmol/L (3.5-5.0)
[2019-06-10] MEDS: Levothyroxine TAB* 75 MCG TAB PO SCH (05:42)
[2019-06-10] MEDS: Morphine INJ* 2 MG/ML 1 ML SYRINGE (TWO MG - NEW SYRINGE VERSION) IV PRN ×4 (05:42→20:41)
[2019-06-10] MEDS: Heparin VIAL(*) 5000 UNITS/ML VIAL (FIVE THOUSAND) SUBCUT SCH ×3 (05:54→22:44)
[2019-06-10 06:01] LABS: ABS Basophils 0.1 10^3/ul (0-0.2); ABS Eosinophils 0.4 10^3/ul (0-0.6); ABS Lymphocytes 1.8 10^3/ul (1.0-4.8); ABS Monocytes 1.7 10^3/ul (0-0.8); ABS Neutrophils 10.4 10^3/ul (1.5-7.7); Eosinophil % 2.6 %; Lymphocyte % 12.3 %
[2019-06-10] MEDS: Cefepime 2 GM in Dextrose(*) 2 GM/50 ML BAG IV SCH ×2 (08:16→21:02)
[2019-06-10] MEDS: Senna TAB 8.6 mg* TAB PO SCH (09:17)
[2019-06-10] MEDS: Docusate CAP* 100 MG PO SCH ×2 (09:18→21:06)
[2019-06-10] MEDS: metroNIDAZOLE IV 500 MG/100ML* 500 MG/100 ML BAG IVPB SCH ×2 (09:18→22:25)
[2019-06-10] MEDS: Pantoprazole IV* 40 MG IV SCH (10:05)
[2019-06-10] MEDS: Nystatin CREAM* 15 GM TUBE TOPICAL SCH ×2 (10:05→21:08)
[2019-06-10] MEDS: SPIRIVA Respimat* (tiotropium) 2.5 mcg/inh Inhaler INH SCH (10:16)
--- NOTE | 2019-06-10 12:18 | PN ---
Progress Note - Progress Note Date of Service: 06/10/19 SOAP: Subjective:NAD, c/o LLQ pain + Flatus - BM today tolerating regular diet [] Objective: Vital Signs Temp 97.5 F 06/10/19 12:02 Pulse 85 06/10/19 12:02 Resp 22 06/10/19 12:02 BP 115/66 06/10/19 12:02 Pulse Ox 93 06/10/19 12:02 Intake & Output 06/09/19 06/10/19 06/10/19 18:59 06:59 18:59 Intake Total 2757 688 Output Total 900 452 530 Balance 1857 236 -530 Intake: IV Fluids 30 NS 30 IVPB 165 168 ABX - CEFEPIME 60 58 ABX - FLAGYL 105 110 TPN/PPN 1632 Oral 930 520 Output: PIETRO #1 55 32 PIETRO #2 20 20 30 Urine 325 400 500 Good 500 Other: # Bowel Movements 0 Estimated Stool Amount Small Laboratory Tests 06/09/19 06/10/19 06:03 05:00 WBC 15.8 H 14.4 H PEX: GEN: NAD, does C/O some LLQ pain Chest: CTA CVS:RRR Abd: Midline incision with ortiz d/c at both ends of wound. no foul odor good granulating tissue R PIETRO with bilious output, L PIETRO with serous output incision 20 x 5 x 5 cm Ext: calves soft non tender [] Assessment: POD 16 s/p sigmoid colectomy, POD 12 s/p enterotomy and placement of vac dressing, ABX day 10 of cefepime and flagyl with improving white count 14.4, (15.8, 20.3,21.1), Tx to ICU 05/29, back in [facility] 05/31, ICU 06/02, [facility] 06/07 , now with NG Out, tolerating Regular diet, TPN d/c'd 06/09. Right PIETRO now with bilious output [] Plan: Vac dressing was changed during exam, continue PICC line, resume TPN, NPO , ABX per ID. Patient also seen by and above discussed with Dr Ponce []
[2019-06-10] MEDS: Octreotide Acetate* 100 MCG/ML 1 ML VIAL SUBCUT SCH ×2 (15:21→22:51)
[2019-06-10] MEDS: TPN* 24 HR with Dextrose 50% Water* 500 ML, Amino Acid Infusion 10%* 850 ML, Sterile Wa... CENTR SCH ×12 (17:35)
[2019-06-10] MEDS: Ondansetron INJ* 2 MG/ML VIAL IV PRN (20:43)
[2019-06-11] MEDS: traMADol TAB* 50 MG PO PRN ×4 (01:00→19:53)
[2019-06-11] MEDS: Morphine INJ* 2 MG/ML 1 ML SYRINGE (TWO MG - NEW SYRINGE VERSION) IV PRN ×3 (04:52→23:35)
[2019-06-11] MEDS: Levothyroxine TAB* 75 MCG TAB PO SCH (06:47)
[2019-06-11] MEDS: Octreotide Acetate* 100 MCG/ML 1 ML VIAL SUBCUT SCH ×3 (06:48→22:07)
[2019-06-11] MEDS: Heparin VIAL(*) 5000 UNITS/ML VIAL (FIVE THOUSAND) SUBCUT SCH ×3 (06:48→22:04)
[2019-06-11] MEDS: Cefepime 2 GM in Dextrose(*) 2 GM/50 ML BAG IV SCH (08:50)
[2019-06-11 09:19] LABS: Hematocrit 27 % (35-47); Hemoglobin 8.7 g/dL (12.0-16.0); Mean Corpuscular HGB Conc 33 g/dL (31-36); Mean Corpuscular Hemoglobin 27 pg (27-31); Mean Corpuscular Volume 82 fL (80-97); Mean Platelet Volume 7.8 fL (7.4-10.4); Platelet Count 584 10^3/uL (150-450); Red Blood Count 3.27 10^6 /uL (3.70-4.87); Red Cell Distribution Width 18 % (10-15); White Blood Count 11.8 10^3/uL (3.5-10.8)
[2019-06-11] MEDS: Pantoprazole IV* 40 MG IV SCH (09:24)
[2019-06-11] MEDS: SPIRIVA Respimat* (tiotropium) 2.5 mcg/inh Inhaler INH SCH (09:24)
[2019-06-11] MEDS: Nystatin CREAM* 15 GM TUBE TOPICAL SCH ×2 (09:24→22:08)
[2019-06-11] MEDS: Senna TAB 8.6 mg* TAB PO SCH (09:25)
[2019-06-11] MEDS: Docusate CAP* 100 MG PO SCH ×2 (09:25→19:53)
[2019-06-11 09:37] LABS: Albumin 2.5 g/dL (3.2-5.2); Albumin/Globulin Ratio 0.7 (1-3); BUN/Creatinine Ratio 18.6 (8-20); EGFR African American 183.8 (>60); EGFR Non-African American 151.9 (>60); Globulin 3.8 g/dL (2-4); Phosphorus 2.5 mg/dL (2.5-5.0); Potassium 4.1 mmol/L (3.5-5.0); Total Bilirubin 0.4 mg/dL (0.2-1.0); Total Protein 6.3 g/dL (6.4-8.9)
[2019-06-11] MEDS: metroNIDAZOLE IV 500 MG/100ML* 500 MG/100 ML BAG IVPB SCH (09:55)
--- NOTE | 2019-06-11 10:46 | PN ---
Progress Note - Progress Note Date of Service: 06/11/19 SOAP: Subjective: []passing flatus, no pain Objective: [] Temp Pulse Resp BP Pulse Ox 98.3 F 76 18 126/64 94 06/11/19 09:17 06/11/19 09:17 06/11/19 09:59 06/11/19 09:17 06/11/19 09:17 Abnormal Lab Results 06/10/19 06/10/19 06/11/19 17:54 22:36 05:07 WBC RBC Hgb Hct MCV MCH MCHC RDW Plt Count MPV Sodium Potassium Chloride Carbon Dioxide Anion Gap BUN Creatinine Est GFR ( Amer) Est GFR (Non-Af Amer) BUN/Creatinine Ratio Glucose POC Glucose (mg/dL) 114 H 180 H 196 H Calcium Phosphorus Magnesium Total Bilirubin AST ALT Alkaline Phosphatase Total Protein Albumin Globulin Albumin/Globulin Ratio Prealbumin Triglycerides Cholesterol 06/11/19 06/11/19 08:54 08:54 WBC 11.8 H RBC 3.27 L Hgb 8.7 L Hct 27 L MCV 82 MCH 27 MCHC 33 RDW 18 H Plt Count 584 H D MPV 7.8 Sodium 134 L Potassium 4.1 Chloride 106 Carbon Dioxide 24 Anion Gap 4 BUN 8 Creatinine 0.43 L Est GFR ( Amer) 183.8 Est GFR (Non-Af Amer) 151.9 BUN/Creatinine Ratio 18.6 Glucose 174 H POC Glucose (mg/dL) Calcium 8.0 L Phosphorus 2.5 Magnesium 2.0 Total Bilirubin 0.40 AST 16 ALT 23 Alkaline Phosphatase 80 Total Protein 6.3 L Albumin 2.5 L Globulin 3.8 Albumin/Globulin Ratio 0.7 L Prealbumin 15 L Triglycerides 112 Cholesterol 73 Intake & Output 06/09/19 06/10/19 06/11/19 06/12/19 06:59 06:59 06:59 06:59 Intake Total 2167 3445 150 0 Output Total 4477 1352 4243 300 Balance -2310 2093 -4093 -300 Intake: IV Fluids 30 NS 30 IVPB 110 333 ABX - CEFEPIME 118 ABX - FLAGYL 110 215 TPN/PPN 1537 1632 Oral 520 1450 150 0 Output: KARLEY #1 60 87 30 KARLEY #2 42 40 63 Wound Vac 775 400 Urine 906 169 9652 300 Good 3300 500 Other: # Bowel Movements 0 0 0 Estimated Stool Amount Small awake, comfortable, good mood wound vac in place, skin ok karley#1 small amount bilious thick 5cc karley#2 serosang 25cc Assessment: []stable small amount bilious drainage karley#1, wbc almost normal range Plan: [] con tpn, npo for now last day of abx
--- NOTE | 2019-06-11 11:23 | PN ---
Subjective Date of Service: 06/11/19 Interval History: Pt had loose BM's in the p[ast 2 days , but none today. Passing flatus. Abd pain -post op "as expected"-using ice packs. today back on TPN and NPO Objective Active Medications: Al Hydrox/Mg Hydrox/Simethicone (Maalox Plus*) 30 ml PO Q4H PRN PRN Reason: HEARTBURN Docusate Sodium (Colace Cap*) 100 mg PO BID [facility] Last Admin: 06/11/19 09:25 Dose: 100 mg Heparin Sodium (Porcine) (Heparin Vial(*)) 5,000 units SUBCUT Q8HR [facility] Last Admin: 06/11/19 06:48 Dose: 5,000 units Heparin Sodium (Porcine) (Heparin Flush Picc/Ml/Cvc(*)) 1 - 3 ml FLUSH 0600, 1800 [facility]; Protocol Last Admin: 06/11/19 06:51 Dose: 1 ml Metronidazole/Sodium Chloride (Flagyl 500 Mg Ivpb*) 500 mg in 100 mls @ 100 mls /hr IVPB Q12H [facility] Last Admin: 06/11/19 09:55 Dose: 100 mls/hr Cefepime HCl (Maxipime 2 Gm In Dextrose Duplex (*)) 2 gm in 50 mls @ 100 mls/ hr IV 0830,2030 [facility] Last Admin: 06/11/19 08:50 Dose: 100 mls/hr Dextrose 500 ml/ Amino Acids 850 ml/ Sterile Water 150 ml/Fat Emulsion Intravenous 250 ml/ Sodium Chloride 100 meq/Potassium Chloride 50 meq/Potassium Phosphate 20 mmole/Calcium Gluconate 10 meq/Magnesium Sulfate 20 meq/ Multivitamins 10 ml/ Trace Metals 1 ml/ Nutrition ( Parenteral) 1,844.0978 mls @ 76.837 mls/hr CENTR 1700 [facility] Last Admin: 06/10/19 17:35 Dose: 76.837 mls/hr Levothyroxine Sodium (Synthroid Tab*) 75 mcg PO DAILY@0600 [facility] Last Admin: 06/11/19 06:47 Dose: 75 mcg Lidocaine (Xylocaine 2% Viscous*) 1 ml TOPICAL TID PRN PRN Reason: PAIN - MILD Last Admin: 05/30/19 06:21 Dose: 1 ml Metoclopramide HCl (Reglan Iv*) 5 mg IV Q6H PRN PRN Reason: NAUSEA/VOMITING Last Admin: 06/09/19 08:33 Dose: 5 mg Miscellaneous (Ativan Pyxis Perry) 1 ea N/A .PYXIS PERRY PRN PRN Reason: PER PROTOCOL Morphine Sulfate (Morphine Inj (Syringe))*) 1 mg IV Q1H PRN PRN Reason: PAIN - SEVERE Last Admin: 06/11/19 04:52 Dose: 1 mg Nystatin (Nystatin Cream*) 1 applic TOPICAL BID [facility] Last Admin: 06/11/19 09:24 Dose: 1 applic Octreotide Acetate (Octreotide Acetate*) 100 mcg SUBCUT Q8H [facility] Last Admin: 06/11/19 06:48 Dose: 100 mcg Ondansetron HCl (Zofran Inj*) 4 mg IV Q4H PRN PRN Reason: NAUSEA/VOMITING Last Admin: 06/10/19 20:43 Dose: 4 mg Pantoprazole Sodium (Protonix Iv*) 40 mg IV DAILY [facility] Last Admin: 06/11/19 09:24 Dose: 40 mg Pharmacy Profile Note (Scopolamine Patch Remove*) 1 note PATCH OFF .AFTER 72 HOURS [facility] Senna (Senokot 8.6 Mg Tab*) 1 tab PO DAILY [facility] Last Admin: 06/11/19 09:25 Dose: 1 tab Throat Lozenges (Chloraseptic Naresh*) 1 naresh PO Q6H PRN PRN Reason: SORE THROAT Tiotropium Eldon (Spiriva Respimat 2.5 Mcg) 2 puff INH QAM [facility] Last Admin: 06/11/19 09:24 Dose: 2 puff Tramadol HCl (Ultram*) 50 mg PO Q6H PRN PRN Reason: PAIN - MODERATE Last Admin: 06/11/19 07:53 Dose: 50 mg Vital Signs - 8 hr 06/11/19 06/11/19 06/11/19 04:52 05:07 05:55 Temperature 97.7 F Pulse Rate 82 Respiratory 18 18 16 Rate Blood Pressure 114/70 (mmHg) O2 Sat by Pulse 95 Oximetry 06/11/19 06/11/19 06/11/19 07:27 07:53 08:00 Temperature 97.5 F Pulse Rate 82 Respiratory 16 18 18 Rate Blood Pressure 126/80 (mmHg) O2 Sat by Pulse 94 Oximetry 06/11/19 06/11/19 09:17 09:59 Temperature 98.3 F Pulse Rate 76 Respiratory 18 18 Rate Blood Pressure 126/64 (mmHg) O2 Sat by Pulse 94 Oximetry Oxygen Devices in Use Now: None, CPAP Appearance: 58 yo F in nAD, aAOx3 Eyes: No Scleral Icterus, PERRLA Ears/Nose/Mouth/Throat: NL Teeth, Lips, Gums, Mucous Membranes Moist Neck: NL Appearance and Movements; NL JVP, Trachea Midline Respiratory: Symmetrical Chest Expansion and Respiratory Effort, - - mild bibasiliar crackles Cardiovascular: NL Sounds; No Murmurs; No JVD, RRR Abdominal: - - midline wound vac in place. R PIETRO drain in RLQ with small amount of bile, L PIETRO drain with no output currently. Abd soft, mild diffuse tenderness noted, no rebound, no guarding, BS+ Lymphatic: No Cervical Adenopathy Extremities: No Edema Skin: No Rash or Ulcers, No Nodules or Sclerosis Neurological: Alert and Oriented x 3, NL Muscle Strength and Tone - Nutrition: Malnutrition Diagnosis/Plan Malnutrition Assessment by Registered Dietitian: Malnutrition Assessment Clinical Characteristics Acute,Moderate Malnutrition Assessment: - energy intake <75% est needs X > 7 days Criteria - mild temporal wasting noted upon visual assessment - mild fluid accumulation per provider progress notes Malnutrition Assessment: - TPN started 06/03 Interventions - await bowel function - begin po diet as ordered by Surgery Malnutrition Assessment: Goals 1. adequate parenteral nutrition support to support lean body mass and hydration status 2. achieve and maintain fluid/electrolyte balance w/adequate po nutrition support 3. achieve and maintain bowel regularity w/ adequate nutrition support w/o exacerbation of diarrhea or development of constipation Result Diagrams: 06/11/19 08:54 06/11/19 08:54 Microbiology and Other Data: Microbiology 06/03/19 13:10 Aerobic Blood Culture - Final Blood Venous No Growth Day 5 Anaerobic Blood Culture - Final No Growth Day 5 06/03/19 09:24 Aerobic Blood Culture - Final Blood Line No Growth Day 5 Anaerobic Blood Culture - Final No Growth Day 5 05/29/19 11:46 Aerobic Blood Culture - Final Blood Venous No Growth Day 5 Anaerobic Blood Culture - Final No Growth Day 5 05/29/19 10:28 Aerobic Blood Culture - Final Blood Venous No Growth Day 5 Anaerobic Blood Culture - Final No Growth Day 5 06/01/19 20:50 Urine Culture - Final Urine No Growth (<1,000 CFU/mL) 05/29/19 11:20 Nasal Screen MRSA (PCR) - Final Nasal Mrsa Not Detected Assess/Plan/Problems-Billing Assessment: HPI: Ms. Mendoza is a 58 year old woman with PMH significant for obesity, recurrent diverticulitis, asthma, VIKTOR, hypothyroidism, and sciatica. S/P elective, robotic assisted sigmoidectomy (for recurrent diverticulitis) 05/25/19 and then laparotomy for bowel leak and repair of enterotomy 05/29/19. - Patient Problems (1) S/P laparoscopic-assisted sigmoidectomy Comment: S/P elective, robotic assisted sigmoidectomy (for recurrent diverticulitis) 05/25/19 and then laparotomy for bowel leak and repair of enterotomy 05/29/19. As per gen surgery small amount of bile noted in R PIETRO drain today and pt was placed back on TPN and NPO (2) Sepsis Comment: As per ID: on Cefepime and Flagyl Likley related to post op bowel leak (repaired 05/29/19/) Leukocytosis trending down (3) Hypothyroid Comment: - Continue home dose levothyroxine (4) Ileus Comment: pt had BM's when was on PO diet and currently passing flatus suspect ileus is resolving (5) VIKTOR (obstructive sleep apnea) Comment: -continue CPAP at night (6) Asthma Comment: -Continue home spiriva -No evidence of acute exacerbation, (7) DVT prophylaxis Comment: HSQ Status and Disposition: Thank you allowing our service to see your patient in consult. Will sign off for now, please call if needed.
[2019-06-11 12:43] LABS: ABS Basophils 0.1 10^3/ul (0-0.2); ABS Eosinophils 0.3 10^3/ul (0-0.6); ABS Lymphocytes 1.5 10^3/ul (1.0-4.8); ABS Monocytes 1.3 10^3/ul (0-0.8); ABS Neutrophils 8.6 10^3/ul (1.5-7.7); Eosinophil % 2.4 %; Lymphocyte % 12.4 %; Nucleated Red Blood Cells % 0.1
[2019-06-11] MEDS: Scopolamine 1.5 mg* PATCH TRANSDERM SCH (16:29)
[2019-06-11] MEDS: TPN* 24 HR with Dextrose 50% Water* 500 ML, Amino Acid Infusion 10%* 850 ML, Sterile Wa... CENTR SCH ×12 (17:13)
[2019-06-12] MEDS: traMADol TAB* 50 MG PO PRN ×3 (02:56→22:43)
[2019-06-12] MEDS: Ondansetron INJ* 2 MG/ML VIAL IV PRN (06:19)
[2019-06-12] MEDS: Octreotide Acetate* 100 MCG/ML 1 ML VIAL SUBCUT SCH ×3 (06:29→22:44)
[2019-06-12] MEDS: Heparin VIAL(*) 5000 UNITS/ML VIAL (FIVE THOUSAND) SUBCUT SCH ×3 (06:32→22:44)
[2019-06-12] MEDS: Levothyroxine TAB* 75 MCG TAB PO SCH (06:34)
[2019-06-12 06:42] LABS: Hematocrit 26 % (35-47); Hemoglobin 8.5 g/dL (12.0-16.0); Mean Corpuscular HGB Conc 32 g/dL (31-36); Mean Corpuscular Hemoglobin 27 pg (27-31); Mean Corpuscular Volume 82 fL (80-97); Mean Platelet Volume 7.6 fL (7.4-10.4); Platelet Count 580 10^3/uL (150-450); Red Blood Count 3.21 10^6 /uL (3.70-4.87); Red Cell Distribution Width 18 % (10-15); White Blood Count 12.6 10^3/uL (3.5-10.8)
[2019-06-12] MEDS: Morphine INJ* 2 MG/ML 1 ML SYRINGE (TWO MG - NEW SYRINGE VERSION) IV PRN ×3 (06:48→20:05)
[2019-06-12 07:10] LABS: Albumin 2.8 g/dL (3.2-5.2); Albumin/Globulin Ratio 0.8 (1-3); Calcium 8.2 mg/dL (8.6-10.3); EGFR African American 174.4 (>60); EGFR Non-African American 144.1 (>60); Globulin 3.7 g/dL (2-4); Phosphorus 2.3 mg/dL (2.5-5.0); Potassium 4.1 mmol/L (3.5-5.0); Total Bilirubin 0.4 mg/dL (0.2-1.0); Total Protein 6.5 g/dL (6.4-8.9)
[2019-06-12 08:35] LABS: ABS Basophils 0.1 10^3/ul (0-0.2); ABS Eosinophils 0.3 10^3/ul (0-0.6); ABS Lymphocytes 2.2 10^3/ul (1.0-4.8); ABS Monocytes 1.5 10^3/ul (0-0.8); ABS Neutrophils 8.5 10^3/ul (1.5-7.7); Eosinophil % 2.1 %; Lymphocyte % 17.3 %
[2019-06-12] MEDS: Pantoprazole IV* 40 MG IV SCH (09:12)
[2019-06-12] MEDS: SPIRIVA Respimat* (tiotropium) 2.5 mcg/inh Inhaler INH SCH (09:15)
--- NOTE | 2019-06-12 10:59 | PN ---
Progress Note - Progress Note Date of Service: 06/12/19 SOAP: Subjective:No nausea,passing flatus and belching;using minimal pain med; ambulating more [] Objective: Vital Signs Temp 98.4 F 06/12/19 07:20 Pulse 82 06/12/19 07:20 Resp 16 06/12/19 09:00 BP 117/70 06/12/19 07:20 Pulse Ox 96 06/12/19 07:20 Intake & Output 06/11/19 06/12/19 06/12/19 18:59 06:59 18:59 Intake Total 1970 0 Output Total 1675 1200 300 Balance 295 -1200 -300 Intake: IV Fluids 40 NS 40 IVPB 165 ABX - CEFEPIME 55 ABX - FLAGYL 110 TPN/PPN 1765 Oral 0 0 Output: PIETRO #1 0 PIETRO #2 0 Urine 1675 1200 300 24h PIETRO#1=30ml,cloudy brown;PIETRO#2=63ml,cloudy yellow;abd:large,+bs;wound vac over midline incision;fungal rash in skin folds;lungs:decreased bs L base,otherwise clear bilat;heart:RRR,no murmur;ext:nontender calves,no edema Laboratory Last Values WBC 12.6 10^3/uL (3.5-10.8) H 06/12/19 06:26 RBC 3.21 10^6 /uL (3.70-4.87) L 06/12/19 06:26 Hgb 8.5 g/dL (12.0-16.0) L 06/12/19 06:26 Hct 26 % (35-47) L 06/12/19 06:26 MCV 82 fL (80-97) 06/12/19 06:26 MCH 27 pg (27-31) 06/12/19 06:26 MCHC 32 g/dL (31-36) 06/12/19 06:26 RDW 18 % (10-15) H 06/12/19 06:26 Plt Count 580 10^3/uL (150-450) H 06/12/19 06:26 MPV 7.6 fL (7.4-10.4) 06/12/19 06:26 Neut % (Auto) 67.3 % 06/12/19 06:26 Lymph % (Auto) 17.3 % 06/12/19 06:26 [place] % (Auto) 12.2 % 06/12/19 06:26 Eos % (Auto) 2.1 % 06/12/19 06:26 Baso % (Auto) 1.1 % 06/12/19 06:26 Absolute Neuts (auto) 8.5 10^3/ul (1.5-7.7) H 06/12/19 06:26 Absolute Lymphs (auto) 2.2 10^3/ul (1.0-4.8) 06/12/19 06:26 Absolute Monos (auto) 1.5 10^3/ul (0-0.8) H 06/12/19 06:26 Absolute Eos (auto) 0.3 10^3/ul (0-0.6) 06/12/19 06:26 Absolute Basos (auto) 0.1 10^3/ul (0-0.2) 06/12/19 06:26 Absolute Nucleated RBC 0.0 10^3/ul 06/12/19 06:26 Immature Gran % 8.0 % (0-9) 06/11/19 08:54 Neutrophils % 69.0 % 06/11/19 08:54 Band Neutrophils % 1.0 % (0-8) 06/11/19 08:54 Lymphocytes % 10.0 % 06/11/19 08:54 Monocytes % 12.0 % 06/11/19 08:54 Eosinophils % 1.0 % 06/11/19 08:54 Basophils % 0.0 % 06/03/19 05:55 Metamyelocytes % 3.0 % (0-2) H 06/11/19 08:54 Myelocytes % 4.0 % (0-1) H 06/11/19 08:54 Promyelocytes % 1.0 % 06/05/19 04:25 Nucleated RBC % 0.0 06/12/19 06:26 Nucleated RBCs/100 WBC 1.0 (0-0) H 06/07/19 05:35 Normal RBC Morphology Normal (Normal) 06/11/19 08:54 Polychromasia 1+ 06/08/19 06:25 Anisocytosis 1+ 06/07/19 05:35 Microcytosis 2+ 06/05/19 04:25 INR (Anticoag Therapy) 1.18 (0.82-1.09) H 06/01/19 04:41 Sodium 135 mmol/L (135-145) 06/12/19 06:26 Potassium 4.1 mmol/L (3.5-5.0) 06/12/19 06:26 Chloride 106 mmol/L (101-111) 06/12/19 06:26 Carbon Dioxide 25 mmol/L (22-32) 06/12/19 06:26 Anion Gap 4 mmol/L (2-11) 06/12/19 06:26 BUN 9 mg/dL (6-24) 06/12/19 06:26 Creatinine 0.45 mg/dL (0.51-0.95) L 06/12/19 06:26 Est GFR ( Amer) 174.4 (>60) 06/12/19 06:26 Est GFR (Non-Af Amer) 144.1 (>60) 06/12/19 06:26 BUN/Creatinine Ratio 20.0 (8-20) 06/12/19 06:26 Glucose 131 mg/dL (70-100) H 06/12/19 06:26 POC Glucose (mg/dL) 180 mg/dL (70-100) H 06/12/19 02:59 Lactic Acid 1.4 mmol/L (0.5-2.0) 05/29/19 11:42 Calcium 8.2 mg/dL (8.6-10.3) L 06/12/19 06:26 Ionized Calcium 1.05 mmol/L (1.16-1.32) L 06/02/19 05:02 Phosphorus 2.3 mg/dL (2.5-5.0) L 06/12/19 06:26 Magnesium 2.0 mg/dL (1.9-2.7) 06/12/19 06:26 Total Bilirubin 0.40 mg/dL (0.2-1.0) 06/12/19 06:26 AST 13 U/L (13-39) 06/12/19 06:26 ALT 11 U/L (7-52) 06/12/19 06:26 Alkaline Phosphatase 79 U/L (34-104) 06/12/19 06:26 Troponin I 0.02 ng/mL (<0.04) 06/02/19 05:02 Total Protein 6.5 g/dL (6.4-8.9) 06/12/19 06:26 Albumin 2.8 g/dL (3.2-5.2) L 06/12/19 06:26 Globulin 3.7 g/dL (2-4) 06/12/19 06:26 Albumin/Globulin Ratio 0.8 (1-3) L 06/12/19 06:26 Prealbumin 16 mg/dL (18-38) L 06/12/19 06:26 Triglycerides 106 mg/dL 06/12/19 06:26 Cholesterol 72 mg/dL 06/12/19 06:26 Urine Color Yellow 06/01/19 20:50 Urine Appearance Turbid 06/01/19 20:50 Urine pH 5.0 (5-9) 06/01/19 20:50 Ur Specific [place] 1.027 (1.010-1.030) 06/01/19 20:50 Urine Protein Negative (Negative) 06/01/19 20:50 Urine Ketones Negative (Negative) 06/01/19 20:50 Urine Blood 1+ (Negative) A 06/01/19 20:50 Urine Nitrate Negative (Negative) 06/01/19 20:50 Urine Bilirubin Negative (Negative) 06/01/19 20:50 Urine Urobilinogen Negative (Negative) 06/01/19 20:50 Ur Leukocyte Esterase 1+ (Negative) A 06/01/19 20:50 Urine WBC (Auto) Absent (Absent) 06/01/19 20:50 Urine RBC (Auto) 3+(>10/hpf) (Absent) A 06/01/19 20:50 Amorphous Crystals Present (Absent) A 06/01/19 20:50 Urine Bacteria Absent (Absent) 06/01/19 20:50 Urine Glucose Negative (Negative) 06/01/19 20:50 [] Assessment:s/p elective robotic assisted sigmoid colectomy,extensive lysis of adhesions 05/25/19;return to OR 05/29/19 for laparotomy,bowel leak,repair of enterotomy wbc 12.6,less pain,afebrile [] Plan:continue TPN(renewed today);NPO push inspiron and ambulation CBC 06/13,06/14 change wound vac today Nystatin powder to abdominal skin folds []
[2019-06-12] MEDS: Nystatin CREAM* 15 GM TUBE TOPICAL SCH ×2 (11:28→22:48)
[2019-06-12] MEDS: Nystatin TOP POWDER* 15 GM BTL TOPICAL SCH ×3 (11:30→22:46)
--- NOTE | 2019-06-12 15:13 | PN ---
Progress Note - Progress Note Date of Service: 06/12/19 Note: Procedure note: negative pressure vac dressing removed and replaced wound measures 20 x 4 x 4 cm at its two deepest parts, distal end and 2 cm from apex no pooling at either site, no foul odor, good granulating tissue throughout Plan: change again on saturday06/15/19
[2019-06-12] MEDS: Docusate CAP* 100 MG PO SCH ×2 (16:28→20:05)
[2019-06-12] MEDS: Senna TAB 8.6 mg* TAB PO SCH (16:28)
[2019-06-12] MEDS: TPN* 24 HR with Dextrose 50% Water* 500 ML, Amino Acid Infusion 10%* 850 ML, Sterile Wa... CENTR SCH ×12 (17:05)
[2019-06-13] MEDS: Morphine INJ* 2 MG/ML 1 ML SYRINGE (TWO MG - NEW SYRINGE VERSION) IV PRN ×2 (02:24→22:21)
[2019-06-13] MEDS: traMADol TAB* 50 MG PO PRN ×3 (05:42→17:45)
[2019-06-13] MEDS: Levothyroxine TAB* 75 MCG TAB PO SCH (05:42)
[2019-06-13] MEDS: Heparin VIAL(*) 5000 UNITS/ML VIAL (FIVE THOUSAND) SUBCUT SCH ×3 (05:54→22:34)
[2019-06-13] MEDS: Octreotide Acetate* 100 MCG/ML 1 ML VIAL SUBCUT SCH ×3 (05:54→22:33)
[2019-06-13 06:09] LABS: Hematocrit 25 % (35-47); Hemoglobin 8.2 g/dL (12.0-16.0); Mean Corpuscular HGB Conc 33 g/dL (31-36); Mean Corpuscular Hemoglobin 27 pg (27-31); Mean Corpuscular Volume 82 fL (80-97); Mean Platelet Volume 7.7 fL (7.4-10.4); Platelet Count 503 10^3/uL (150-450); Red Blood Count 3.06 10^6 /uL (3.70-4.87); Red Cell Distribution Width 18 % (10-15); White Blood Count 11.4 10^3/uL (3.5-10.8)
[2019-06-13 07:21] LABS: ABS Basophils 0.1 10^3/ul (0-0.2); ABS Eosinophils 0.2 10^3/ul (0-0.6); ABS Lymphocytes 2.4 10^3/ul (1.0-4.8); ABS Monocytes 1.3 10^3/ul (0-0.8); ABS Neutrophils 7.4 10^3/ul (1.5-7.7); Eosinophil % 2.1 %; Lymphocyte % 20.7 %
[2019-06-13] MEDS: Nystatin TOP POWDER* 15 GM BTL TOPICAL SCH ×4 (08:12→22:36)
[2019-06-13] MEDS: Docusate CAP* 100 MG PO SCH ×2 (08:15→22:35)
[2019-06-13] MEDS: Senna TAB 8.6 mg* TAB PO SCH (08:15)
[2019-06-13] MEDS: Pantoprazole IV* 40 MG IV SCH (08:16)
[2019-06-13] MEDS: Nystatin CREAM* 15 GM TUBE TOPICAL SCH ×2 (08:25→22:06)
[2019-06-13] MEDS: SPIRIVA Respimat* (tiotropium) 2.5 mcg/inh Inhaler INH SCH (08:29)
--- NOTE | 2019-06-13 11:15 | PN ---
Progress Note - Progress Note Date of Service: 06/13/19 Note: Patient feeling well this morning. Has been ambulating in the hallways this morning. Afebrile. Denies chest pain, shortness of breath. Minimal abdominal pain. Temp Pulse Resp BP Pulse Ox 97.9 F 76 22 125/73 95 06/13/19 07:27 06/13/19 07:27 06/13/19 08:22 06/13/19 07:27 06/13/19 07:27 Intake & Output 06/12/19 06/13/19 06/13/19 22:59 06:59 14:59 Intake Total 0 0 Output Total 1260 604 450 Balance -1260 -604 -450 Weight 176 lb 3.2 oz PIETRO #1 22 ml, PIETRO #2 17 ml General: No acute distress, sitting up in chair Abdomen: soft, mild tenderness in bilateral lower quadrants, nondistended. Wound vac in place, wound edges without erythema. Minimal drainage from wound vac. RLQ PIETRO drain with bile, LLQ PIETRO with serous fluid. Extremities: warm, no pedal edema Neuro: Alert, oriented x3 Laboratory Results - last 24 hr 06/12/19 06/13/19 06/13/19 21:47 05:38 09:15 WBC 11.4 H RBC 3.06 L Hgb 8.2 L Hct 25 L MCV 82 MCH 27 MCHC 33 RDW 18 H Plt Count 503 H D MPV 7.7 Neut % (Auto) 64.7 Lymph % (Auto) 20.7 [place] % (Auto) 11.5 Eos % (Auto) 2.1 Baso % (Auto) 1.0 Absolute Neuts (auto) 7.4 Absolute Lymphs (auto) 2.4 Absolute Monos (auto) 1.3 H Absolute Eos (auto) 0.2 Absolute Basos (auto) 0.1 Absolute Nucleated RBC 0.0 Nucleated RBC % 0.0 POC Glucose (mg/dL) 165 H 161 H A&P 58F s/p elective robotic assisted sigmoid colectomy 05/25, complicated by enterotomy s/p ex lap and repair 05/29. WBC trending down -TPN. NPO. -Continue octreotide. -Antibiotics completed -Continue nystatin powder to abdominal folds -Wound vac to suction, plan to change Saturday -PIETRO drains to self suction
[2019-06-13] MEDS: TPN* 24 HR with Dextrose 50% Water* 500 ML, Amino Acid Infusion 10%* 850 ML, Sterile Wa... CENTR SCH ×12 (16:45)
[2019-06-13] MEDS: Ondansetron INJ* 2 MG/ML VIAL IV PRN (22:32)
[2019-06-14] MEDS: Heparin VIAL(*) 5000 UNITS/ML VIAL (FIVE THOUSAND) SUBCUT SCH ×3 (06:33→22:33)
[2019-06-14] MEDS: Octreotide Acetate* 100 MCG/ML 1 ML VIAL SUBCUT SCH ×3 (06:35→22:31)
[2019-06-14] MEDS: Levothyroxine TAB* 75 MCG TAB PO SCH (06:37)
[2019-06-14 07:00] LABS: Hematocrit 27 % (35-47); Hemoglobin 8.5 g/dL (12.0-16.0); Mean Corpuscular HGB Conc 32 g/dL (31-36); Mean Corpuscular Hemoglobin 26 pg (27-31); Mean Corpuscular Volume 82 fL (80-97); Mean Platelet Volume 7.4 fL (7.4-10.4); Platelet Count 486 10^3/uL (150-450); Red Blood Count 3.25 10^6 /uL (3.70-4.87); Red Cell Distribution Width 19 % (10-15); White Blood Count 11.4 10^3/uL (3.5-10.8)
[2019-06-14 07:23] LABS: Albumin 2.8 g/dL (3.2-5.2); Calcium 8.2 mg/dL (8.6-10.3); Magnesium 1.9 mg/dL (1.9-2.7); Total Bilirubin 0.4 mg/dL (0.2-1.0)
[2019-06-14 07:30] LABS: Albumin/Globulin Ratio 0.7 (1-3); BUN/Creatinine Ratio 27.5 (8-20); EGFR African American 199.8 (>60); EGFR Non-African American 165.1 (>60); Globulin 3.8 g/dL (2-4); Total Protein 6.6 g/dL (6.4-8.9)
[2019-06-14 07:41] LABS: ABS Basophils 0.1 10^3/ul (0-0.2); ABS Eosinophils 0.2 10^3/ul (0-0.6); ABS Lymphocytes 1.9 10^3/ul (1.0-4.8); ABS Monocytes 1.2 10^3/ul (0-0.8); Lymphocyte % 16.6 %; Nucleated Red Blood Cells % 0.1
[2019-06-14] MEDS: Pantoprazole IV* 40 MG IV SCH (08:28)
[2019-06-14] MEDS: Nystatin TOP POWDER* 15 GM BTL TOPICAL SCH ×3 (08:32→22:30)
[2019-06-14] MEDS: Senna TAB 8.6 mg* TAB PO SCH (08:33)
[2019-06-14] MEDS: Docusate CAP* 100 MG PO SCH ×2 (08:33→22:34)
[2019-06-14] MEDS: SPIRIVA Respimat* (tiotropium) 2.5 mcg/inh Inhaler INH SCH (08:33)
[2019-06-14] MEDS: traMADol TAB* 50 MG PO PRN ×3 (08:36→22:34)
[2019-06-14] MEDS: Nystatin CREAM* 15 GM TUBE TOPICAL SCH ×2 (08:37→22:34)
--- NOTE | 2019-06-14 12:01 | PN ---
Progress Note - Progress Note Date of Service: 06/14/19 Note: Feeling ok today. Abdominal pain is minimal. Walked a lot yesterday. Denies nausea. Passing flatus but no bowel movement for 2 days. Afebrile. PIETRO #1 18ml. PIETRO #2 14 ml. Temp Pulse Resp BP Pulse Ox 98.9 F 73 16 123/74 94 06/14/19 11:54 06/14/19 11:54 06/14/19 11:54 06/14/19 11:54 06/14/19 11:54 General: no acute distress Abdomen: soft, minimal tenderness around the midline wound. Wound vac in place, no surrounding erythema. LLQ PIETRO with serous fluid. RLQ PIETRO drain with bilious fluid in bulb but cloudy yellow fluid in tubing. Rash in abdominal fold improving with less erythema. Extremities: warm, no pedal edema bilaterally. Neuro: alert, oriented x3. Laboratory Results - last 24 hr 06/14/19 06/14/19 06/14/19 00:48 06:45 06:45 WBC 11.4 H RBC 3.25 L Hgb 8.5 L Hct 27 L MCV 82 MCH 26 L MCHC 32 RDW 19 H Plt Count 486 H MPV 7.4 Neut % (Auto) 70.0 Lymph % (Auto) 16.6 [place] % (Auto) 10.6 Eos % (Auto) 2.0 Baso % (Auto) 0.8 Absolute Neuts (auto) 8.0 H Absolute Lymphs (auto) 1.9 Absolute Monos (auto) 1.2 H Absolute Eos (auto) 0.2 Absolute Basos (auto) 0.1 Absolute Nucleated RBC 0.0 Nucleated RBC % 0.1 Sodium 134 L Potassium 4.0 Chloride 106 Carbon Dioxide 25 Anion Gap 3 BUN 11 Creatinine 0.40 L Est GFR ( Amer) 199.8 Est GFR (Non-Af Amer) 165.1 BUN/Creatinine Ratio 27.5 H Glucose 107 H POC Glucose (mg/dL) 172 H Calcium 8.2 L Phosphorus 3.0 Magnesium 1.9 Total Bilirubin 0.40 AST 15 ALT 12 Alkaline Phosphatase 93 Total Protein 6.6 Albumin 2.8 L Globulin 3.8 Albumin/Globulin Ratio 0.7 L Prealbumin 17 L Triglycerides 127 Cholesterol 91 06/14/19 09:20 WBC RBC Hgb Hct MCV MCH MCHC RDW Plt Count MPV Neut % (Auto) Lymph % (Auto) [place] % (Auto) Eos % (Auto) Baso % (Auto) Absolute Neuts (auto) Absolute Lymphs (auto) Absolute Monos (auto) Absolute Eos (auto) Absolute Basos (auto) Absolute Nucleated RBC Nucleated RBC % Sodium Potassium Chloride Carbon Dioxide Anion Gap BUN Creatinine Est GFR ( Amer) Est GFR (Non-Af Amer) BUN/Creatinine Ratio Glucose POC Glucose (mg/dL) 176 H Calcium Phosphorus Magnesium Total Bilirubin AST ALT Alkaline Phosphatase Total Protein Albumin Globulin Albumin/Globulin Ratio Prealbumin Triglycerides Cholesterol A&P 58F s/p elective robotic sigmoid colectomy 05/25, complicated by enterotomy s/p ex lap and repair 05/29. White count still stable and low output from drains. -Continue TPN. -Continue octreotide. -Nystatin powder to abdominal fold. -Wound vac change tomorrow. PIETRO drains to self suction.
[2019-06-14] MEDS: Scopolamine 1.5 mg* PATCH TRANSDERM SCH (16:39)
[2019-06-14] MEDS: TPN* 24 HR with Dextrose 50% Water* 500 ML, Amino Acid Infusion 10%* 850 ML, Sterile Wa... CENTR SCH ×12 (16:41)
[2019-06-14] MEDS: Scopolamine PATCH Remove* 1 NOTE MISC PATCH OFF SCH (16:41)
[2019-06-15] MEDS: Morphine INJ* 2 MG/ML 1 ML SYRINGE (TWO MG - NEW SYRINGE VERSION) IV PRN ×5 (04:04→22:07)
[2019-06-15] MEDS: Heparin VIAL(*) 5000 UNITS/ML VIAL (FIVE THOUSAND) SUBCUT SCH ×3 (05:49→21:59)
[2019-06-15] MEDS: Octreotide Acetate* 100 MCG/ML 1 ML VIAL SUBCUT SCH ×3 (05:51→21:59)
[2019-06-15] MEDS: Levothyroxine TAB* 75 MCG TAB PO SCH (05:54)
[2019-06-15 08:12] LABS: Hematocrit 28 % (35-47); Hemoglobin 9.1 g/dL (12.0-16.0); Mean Corpuscular HGB Conc 33 g/dL (31-36); Mean Corpuscular Hemoglobin 27 pg (27-31); Mean Corpuscular Volume 81 fL (80-97); Mean Platelet Volume 7.6 fL (7.4-10.4); Platelet Count 459 10^3/uL (150-450); Red Blood Count 3.39 10^6 /uL (3.70-4.87); Red Cell Distribution Width 18 % (10-15); White Blood Count 10.6 10^3/uL (3.5-10.8)
[2019-06-15 08:32] LABS: ABS Basophils 0.1 10^3/ul (0-0.2); ABS Eosinophils 0.3 10^3/ul (0-0.6); ABS Monocytes 1.2 10^3/ul (0-0.8); ABS Neutrophils 7.1 10^3/ul (1.5-7.7); Eosinophil % 2.5 %; Lymphocyte % 18.9 %
[2019-06-15] MEDS: Nystatin TOP POWDER* 15 GM BTL TOPICAL SCH ×3 (09:09→20:58)
[2019-06-15] MEDS: Pantoprazole IV* 40 MG IV SCH (09:09)
[2019-06-15] MEDS: traMADol TAB* 50 MG PO PRN ×3 (09:10→23:58)
[2019-06-15] MEDS: SPIRIVA Respimat* (tiotropium) 2.5 mcg/inh Inhaler INH SCH (09:10)
[2019-06-15] MEDS: Senna TAB 8.6 mg* TAB PO SCH (09:10)
[2019-06-15] MEDS: Docusate CAP* 100 MG PO SCH ×2 (09:21→19:58)
[2019-06-15] MEDS: Nystatin CREAM* 15 GM TUBE TOPICAL SCH ×2 (09:22→20:59)
--- NOTE | 2019-06-15 10:43 | PN ---
Progress Note - Progress Note Date of Service: 06/15/19 SOAP: Subjective: [] Shanda is a pleasant 58 yo female POD # 21 s/p robotic sigmoid colectomy on complicated by enterotomy, s/p exploratory laparotomy repair on 05/29. Pt tells me she is feeling well today but states she was hoping to return to clear liquid diet soon. She reports having a small bowel movement last evening. She is passing flatus. Denies nausea/vomiting. No blood in stool. Reports mild lower abdominal pain. Rates current pain /10. Continues to ambulate without difficulty. Denies chest pain, SOB. Urinating without difficulty. Denies blood in urine. Pt states that rash in abdominal fold is well improved today. Denies current discomfort from rash. Objective: [] Vital Signs - 12 hr Temp Pulse Resp BP Pulse Ox 06/15/19 10:03 17 06/15/19 09:10 17 06/15/19 08:27 17 06/15/19 08:13 17 06/15/19 07:42 97.6 F 76 17 121/64 95 06/15/19 04:04 20 06/15/19 03:38 98 F 78 16 120/70 96 06/15/19 00:26 98.3 F 75 16 125/69 96 Intake & Output 06/14/19 06/15/19 06/15/19 22:59 06:59 14:59 Intake Total 1795 0 0 Output Total 1090 430 550 Balance 705 -430 -550 Weight 170 lb 14.4 oz Laboratory Results - last 24 hr 06/15/19 07:55 WBC 10.6 RBC 3.39 L Hgb 9.1 L Hct 28 L MCV 81 MCH 27 MCHC 33 RDW 18 H Plt Count 459 H MPV 7.6 Neut % (Auto) 66.5 Lymph % (Auto) 18.9 [place] % (Auto) 11.0 Eos % (Auto) 2.5 Baso % (Auto) 1.1 Absolute Neuts (auto) 7.1 Absolute Lymphs (auto) 2.0 Absolute Monos (auto) 1.2 H Absolute Eos (auto) 0.3 Absolute Basos (auto) 0.1 Absolute Nucleated RBC 0.0 Immature Gran % 2.0 Neutrophils % 63.0 Lymphocytes % 25.0 Monocytes % 8.0 Eosinophils % 2.0 Myelocytes % 2.0 H Nucleated RBC % 0.0 Normal RBC Morphology Normal POC Glucose (mg/dL) Examination: General: NAD, resting in chair comfortably. Cardiovascular: Regular rate and rhythm. No murmur, rubs or gallops. Respiratory: CTA throughout all alvarez. No wheezes, rales or rhonchi. Abdomen: Normoactive bowel sounds. Soft with mild tenderness to palpation at midline. Peripheral Vascular: Extremities warm, calves soft and non-tender b/l. No peripheral edema. Skin: Wound vac in place and holding seal. Wound vac changed today by Dr. Ponce & Manuel Diaz. No erythema to surrounding tissue of wound. RLQ PIETRO drain secured in place with minimal bilious fluid. LLQ PIETRO drain secured in place with minimal serous fluid. Rash in abdominal fold greatly improved, non-tender with decreased erythema. Assessment: [] POD # 21 s/p robotic sigmoid colectomy on 05/25 complicated by enterotomy, s/p exploratory laparotomy repair on 05/29. Greatly improved fungal rash in abdominal fold. Wound vac in place over midline. Improved total WBC count. Plan: [] Routine wound vac changes M/W/F Continue PICC line, remains on TPN. Continued Nystatin powder for rash. Potential discharge home on TPN and portable wound vac for wound management. Plan for visiting nurse to check on patient at home once discharged.
--- NOTE | 2019-06-15 12:31 | PN ---
Progress Note - Progress Note Date of Service: 06/15/19 SOAP: Subjective: NAD Reports some BM's over the weekend. Continues on TPN [] Objective: Vital Signs Temp 97.8 F 06/15/19 11:35 Pulse 83 06/15/19 11:35 Resp 20 06/15/19 12:12 BP 123/72 06/15/19 11:35 Pulse Ox 97 06/15/19 11:35 Intake & Output 06/14/19 06/15/19 06/15/19 18:59 06:59 18:59 Intake Total 1795 0 0 Output Total 1100 1520 550 Balance 695 -1520 -550 Weight 170 lb 14.4 oz Intake: TPN/PPN 1795 Oral 0 0 0 Output: PIETRO #1 40 PIETRO #2 30 Urine 1100 1450 550 Other: # Bowel Movements 1 Estimated Stool Amount Small Laboratory Tests 06/14/19 06/15/19 06:45 07:55 WBC 11.4 H 10.6 [] PEX: GEN:NAD Chest:CTA CVS:RRR ABD:midline vac dressing in place and operating well PIETRO's with reduced output rash improved under [place] EXT:calves soft non tender Assessment: POD 16 s/p sigmoid colectomy 4, POD 17 s/p enterotomy and placement of vac dressing 05/29, ABX now d/c'd , WBC now 10.6 Tx to ICU 05/29, back in [facility] 05/31, ICU 06/02, [facility] 06/07 , now with NG Out, on TPN Right PIETRO continues with a decreased but bilious output [] Plan: Vac dressing will be changed later today with Dr Ponce, continue PICC line, continue TPN, NPO, current management []
--- NOTE | 2019-06-15 15:17 | PN ---
Progress Note - Progress Note Date of Service: 06/15/19 SOAP: Subjective: []hungry, having flatus and BM's ambulating Objective: [] Laboratory Last Values WBC 10.6 10^3/uL (3.5-10.8) 06/15/19 07:55 RBC 3.39 10^6 /uL (3.70-4.87) L 06/15/19 07:55 Hgb 9.1 g/dL (12.0-16.0) L 06/15/19 07:55 Hct 28 % (35-47) L 06/15/19 07:55 MCV 81 fL (80-97) 06/15/19 07:55 MCH 27 pg (27-31) 06/15/19 07:55 MCHC 33 g/dL (31-36) 06/15/19 07:55 RDW 18 % (10-15) H 06/15/19 07:55 Plt Count 459 10^3/uL (150-450) H 06/15/19 07:55 MPV 7.6 fL (7.4-10.4) 06/15/19 07:55 Neut % (Auto) 66.5 % 06/15/19 07:55 Lymph % (Auto) 18.9 % 06/15/19 07:55 [place] % (Auto) 11.0 % 06/15/19 07:55 Eos % (Auto) 2.5 % 06/15/19 07:55 Baso % (Auto) 1.1 % 06/15/19 07:55 Absolute Neuts (auto) 7.1 10^3/ul (1.5-7.7) 06/15/19 07:55 Absolute Lymphs (auto) 2.0 10^3/ul (1.0-4.8) 06/15/19 07:55 Absolute Monos (auto) 1.2 10^3/ul (0-0.8) H 06/15/19 07:55 Absolute Eos (auto) 0.3 10^3/ul (0-0.6) 06/15/19 07:55 Absolute Basos (auto) 0.1 10^3/ul (0-0.2) 06/15/19 07:55 Absolute Nucleated RBC 0.0 10^3/ul 06/15/19 07:55 Immature Gran % 2.0 % (0-9) 06/15/19 07:55 Neutrophils % 63.0 % 06/15/19 07:55 Band Neutrophils % 1.0 % (0-8) 06/11/19 08:54 Lymphocytes % 25.0 % 06/15/19 07:55 Monocytes % 8.0 % 06/15/19 07:55 Eosinophils % 2.0 % 06/15/19 07:55 Basophils % 0.0 % 06/03/19 05:55 Metamyelocytes % 3.0 % (0-2) H 06/11/19 08:54 Myelocytes % 2.0 % (0-1) H 06/15/19 07:55 Promyelocytes % 1.0 % 06/05/19 04:25 Nucleated RBC % 0.0 06/15/19 07:55 Nucleated RBCs/100 WBC 1.0 (0-0) H 06/07/19 05:35 Normal RBC Morphology Normal (Normal) 06/15/19 07:55 Polychromasia 1+ 06/08/19 06:25 Anisocytosis 1+ 06/07/19 05:35 Microcytosis 2+ 06/05/19 04:25 INR (Anticoag Therapy) 1.18 (0.82-1.09) H 06/01/19 04:41 Sodium 134 mmol/L (135-145) L 06/14/19 06:45 Potassium 4.0 mmol/L (3.5-5.0) 06/14/19 06:45 Chloride 106 mmol/L (101-111) 06/14/19 06:45 Carbon Dioxide 25 mmol/L (22-32) 06/14/19 06:45 Anion Gap 3 mmol/L (2-11) 06/14/19 06:45 BUN 11 mg/dL (6-24) 06/14/19 06:45 Creatinine 0.40 mg/dL (0.51-0.95) L 06/14/19 06:45 Est GFR ( Amer) 199.8 (>60) 06/14/19 06:45 Est GFR (Non-Af Amer) 165.1 (>60) 06/14/19 06:45 BUN/Creatinine Ratio 27.5 (8-20) H 06/14/19 06:45 Glucose 107 mg/dL (70-100) H 06/14/19 06:45 POC Glucose (mg/dL) 162 mg/dL (70-100) H 06/15/19 09:18 Lactic Acid 1.4 mmol/L (0.5-2.0) 05/29/19 11:42 Calcium 8.2 mg/dL (8.6-10.3) L 06/14/19 06:45 Ionized Calcium 1.05 mmol/L (1.16-1.32) L 06/02/19 05:02 Phosphorus 3.0 mg/dL (2.5-5.0) 06/14/19 06:45 Magnesium 1.9 mg/dL (1.9-2.7) 06/14/19 06:45 Total Bilirubin 0.40 mg/dL (0.2-1.0) 06/14/19 06:45 AST 15 U/L (13-39) 06/14/19 06:45 ALT 12 U/L (7-52) 06/14/19 06:45 Alkaline Phosphatase 93 U/L (34-104) 06/14/19 06:45 Troponin I 0.02 ng/mL (<0.04) 06/02/19 05:02 Total Protein 6.6 g/dL (6.4-8.9) 06/14/19 06:45 Albumin 2.8 g/dL (3.2-5.2) L 06/14/19 06:45 Globulin 3.8 g/dL (2-4) 06/14/19 06:45 Albumin/Globulin Ratio 0.7 (1-3) L 06/14/19 06:45 Prealbumin 17 mg/dL (18-38) L 06/14/19 06:45 Triglycerides 127 mg/dL 06/14/19 06:45 Cholesterol 91 mg/dL 06/14/19 06:45 Urine Color Yellow 06/01/19 20:50 Urine Appearance Turbid 06/01/19 20:50 Urine pH 5.0 (5-9) 06/01/19 20:50 Ur Specific [place] 1.027 (1.010-1.030) 06/01/19 20:50 Urine Protein Negative (Negative) 06/01/19 20:50 Urine Ketones Negative (Negative) 06/01/19 20:50 Urine Blood 1+ (Negative) A 06/01/19 20:50 Urine Nitrate Negative (Negative) 06/01/19 20:50 Urine Bilirubin Negative (Negative) 06/01/19 20:50 Urine Urobilinogen Negative (Negative) 06/01/19 20:50 Ur Leukocyte Esterase 1+ (Negative) A 06/01/19 20:50 Urine WBC (Auto) Absent (Absent) 06/01/19 20:50 Urine RBC (Auto) 3+(>10/hpf) (Absent) A 06/01/19 20:50 Amorphous Crystals Present (Absent) A 06/01/19 20:50 Urine Bacteria Absent (Absent) 06/01/19 20:50 Urine Glucose Negative (Negative) 06/01/19 20:50 Temp Pulse Resp BP Pulse Ox 97.8 F 83 20 123/72 97 06/15/19 11:35 06/15/19 11:35 06/15/19 14:12 06/15/19 11:35 06/15/19 11:35 Intake & Output 06/13/19 06/14/19 06/15/19 06/16/19 06:59 06:59 06:59 06:59 Intake Total 0 1790 1795 0 Output Total 2864 2132 2620 855 Balance -0591 -342 -825 -855 Weight 176 lb 3.2 oz 170 lb 14.4 oz Intake: TPN/PPN 1790 1795 Oral 0 0 0 0 Output: PIETRO #1 22 18 40 5 PIETRO #2 17 14 30 0 Wound Vac 325 Urine 2500 2100 2550 850 Other: # Bowel Movements 0 1 Estimated Stool Amount Small Small wound clean, no drainage, granulating, almost completely closed except two small areas which extend to the fascia, no drainage-fascia intact Assessment: []stable very low output from PIETRO #1-green Plan: []will try resuming diet and monitor output may benefit from drain injection to eval for source and whether its a direct tract or from cavity/area
[2019-06-15] MEDS: TPN* 24 HR with Dextrose 50% Water* 500 ML, Amino Acid Infusion 10%* 850 ML, Sterile Wa... CENTR SCH ×12 (17:12)
[2019-06-16] MEDS: Morphine INJ* 2 MG/ML 1 ML SYRINGE (TWO MG - NEW SYRINGE VERSION) IV PRN ×2 (03:56→11:20)
[2019-06-16] MEDS: Levothyroxine TAB* 75 MCG TAB PO SCH (05:29)
[2019-06-16] MEDS: Heparin VIAL(*) 5000 UNITS/ML VIAL (FIVE THOUSAND) SUBCUT SCH ×3 (05:29→21:19)
[2019-06-16] MEDS: Octreotide Acetate* 100 MCG/ML 1 ML VIAL SUBCUT SCH ×3 (06:10→21:21)
[2019-06-16 06:11] LABS: Albumin 2.9 g/dL (3.2-5.2); Albumin/Globulin Ratio 0.7 (1-3); BUN/Creatinine Ratio 34.2 (8-20); Calcium 8.5 mg/dL (8.6-10.3); EGFR Non-African American 175.2 (>60); Phosphorus 3.1 mg/dL (2.5-5.0); Potassium 4.3 mmol/L (3.5-5.0); Total Bilirubin 0.4 mg/dL (0.2-1.0); Total Protein 6.9 g/dL (6.4-8.9)
[2019-06-16] MEDS: traMADol TAB* 50 MG PO PRN ×3 (06:13→21:18)
[2019-06-16] MEDS: SPIRIVA Respimat* (tiotropium) 2.5 mcg/inh Inhaler INH SCH (08:45)
[2019-06-16] MEDS: Senna TAB 8.6 mg* TAB PO SCH ×2 (08:46→08:50)
[2019-06-16] MEDS: Docusate CAP* 100 MG PO SCH ×2 (08:46→21:26)
[2019-06-16] MEDS: Nystatin TOP POWDER* 15 GM BTL TOPICAL SCH ×3 (08:51→21:46)
--- NOTE | 2019-06-16 08:51 | PN ---
Progress Note - Progress Note Date of Service: 06/16/19 SOAP: Subjective: []flatus and small bm no nausea or pain tolerating diet Objective: []12cc in karley for 24hr abdomen benign Assessment: []stable, significantly decreasing output karley Plan: []dc tpn after today if remains stable home with wound vac
[2019-06-16] MEDS: Pantoprazole IV* 40 MG IV SCH (08:52)
[2019-06-16] MEDS: Nystatin CREAM* 15 GM TUBE TOPICAL SCH ×2 (09:04→21:27)
[2019-06-16] MEDS: TPN* 24 HR with Dextrose 50% Water* 500 ML, Amino Acid Infusion 10%* 850 ML, Sterile Wa... CENTR SCH ×12 (17:08)
[2019-06-17] MEDS: Morphine INJ* 2 MG/ML 1 ML SYRINGE (TWO MG - NEW SYRINGE VERSION) IV PRN ×4 (01:55→18:41)
[2019-06-17] MEDS: Levothyroxine TAB* 75 MCG TAB PO SCH (05:47)
[2019-06-17] MEDS: traMADol TAB* 50 MG PO PRN ×3 (05:47→18:09)
[2019-06-17] MEDS: Heparin VIAL(*) 5000 UNITS/ML VIAL (FIVE THOUSAND) SUBCUT SCH ×3 (05:49→21:27)
[2019-06-17] MEDS: Octreotide Acetate* 100 MCG/ML 1 ML VIAL SUBCUT SCH ×3 (05:51→21:24)
[2019-06-17] MEDS: Pantoprazole IV* 40 MG IV SCH (08:10)
[2019-06-17] MEDS: SPIRIVA Respimat* (tiotropium) 2.5 mcg/inh Inhaler INH SCH (08:15)
[2019-06-17] MEDS: Nystatin TOP POWDER* 15 GM BTL TOPICAL SCH ×3 (08:16→21:26)
[2019-06-17] MEDS: Senna TAB 8.6 mg* TAB PO SCH (08:29)
[2019-06-17] MEDS: Docusate CAP* 100 MG PO SCH ×2 (08:29→21:24)
[2019-06-17] MEDS: Nystatin CREAM* 15 GM TUBE TOPICAL SCH ×2 (08:29→21:24)
[2019-06-17] MEDS: Ondansetron INJ* 2 MG/ML VIAL IV PRN (15:21)
[2019-06-17] MEDS: Scopolamine PATCH Remove* 1 NOTE MISC PATCH OFF SCH (17:15)
[2019-06-17] MEDS: Scopolamine 1.5 mg* PATCH TRANSDERM SCH (17:16)
[2019-06-17] MEDS: TPN* 24 HR with Dextrose 40% Water* 500 ML, Amino Acid Infusion 10%* 850 ML, Sterile Wa... CENTR SCH ×12 (17:18)
--- NOTE | 2019-06-17 20:05 | PN ---
Progress Note - Progress Note Date of Service: 06/17/19 SOAP: Subjective: NAD + flatus + BM c/o yeast infxn [] Objective: Vital Signs Temp 98.3 F 06/17/19 15:52 Pulse 84 06/17/19 15:52 Resp 18 06/17/19 18:41 BP 121/78 06/17/19 15:52 Pulse Ox 97 06/17/19 15:52 Intake & Output 06/17/19 06/17/19 06/18/19 06:59 18:59 06:59 Intake Total 430 2054 Output Total 1175 1385 Balance -745 669 Weight 169 lb 4.8 oz Intake: IV Fluids 1844 TPN 1844 Oral 430 210 Output: KARLEY #1 30 KARLEY #2 5 Urine 1175 1350 Other: # Bowel Movements 1 Estimated Stool Amount Small PEX GEN: NAD Chest: CTA CVS: RRR ABD: incision site with good granulating tissue reducing in size, no odor karley's still with output Ext: Calves soft non tender [] Assessment:POD 23 s/p sigmoid colectomy 05/25, POD 19 s/p enterotomy and placement of vac dressing 05/29, off ABX now Tx to ICU 05/29, back in [facility] 05/31, ICU 06/02, [facility] 06/07 , now back on TPN after KARLEY increased on reg diet Continue TPN bowel rest, new onset vaginal yeast infection [] Plan: Vac dressing changed, Monistat vaginal suppository QHS x 3 ordered, vac change again saturday. []
[2019-06-17] MEDS: Miconazole VAG.SUPP* 100 MG VAGINAL SCH (22:27)
[2019-06-18] MEDS: traMADol TAB* 50 MG PO PRN ×4 (00:35→22:14)
[2019-06-18] MEDS: Heparin VIAL(*) 5000 UNITS/ML VIAL (FIVE THOUSAND) SUBCUT SCH ×3 (06:10→22:03)
[2019-06-18] MEDS: Octreotide Acetate* 100 MCG/ML 1 ML VIAL SUBCUT SCH ×3 (06:12→22:15)
[2019-06-18] MEDS: Levothyroxine TAB* 75 MCG TAB PO SCH (06:18)
[2019-06-18] MEDS: SPIRIVA Respimat* (tiotropium) 2.5 mcg/inh Inhaler INH SCH (09:48)
[2019-06-18] MEDS: Pantoprazole IV* 40 MG IV SCH (09:49)
[2019-06-18] MEDS: Senna TAB 8.6 mg* TAB PO SCH (09:55)
[2019-06-18] MEDS: Nystatin TOP POWDER* 15 GM BTL TOPICAL SCH ×3 (09:55→20:43)
[2019-06-18] MEDS: Docusate CAP* 100 MG PO SCH ×2 (09:55→20:33)
[2019-06-18] MEDS: Nystatin CREAM* 15 GM TUBE TOPICAL SCH ×2 (09:55→21:31)
[2019-06-18] MEDS: Morphine INJ* 2 MG/ML 1 ML SYRINGE (TWO MG - NEW SYRINGE VERSION) IV PRN ×3 (12:11→20:33)
--- NOTE | 2019-06-18 12:14 | PN ---
Progress Note - Progress Note Date of Service: 06/18/19 SOAP: Subjective: Pt seen and examined. some abdo pain. 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
[2019-06-18] MEDS: TPN* 24 HR with Dextrose 40% Water* 500 ML, Amino Acid Infusion 10%* 850 ML, Sterile Wa... CENTR SCH ×12 (16:59)
[2019-06-18] MEDS: Miconazole VAG.SUPP* 100 MG VAGINAL SCH (20:43)
[2019-06-19] MEDS: Levothyroxine TAB* 75 MCG TAB PO SCH (05:45)
[2019-06-19] MEDS: Heparin VIAL(*) 5000 UNITS/ML VIAL (FIVE THOUSAND) SUBCUT SCH ×3 (05:45→21:51)
[2019-06-19] MEDS: Octreotide Acetate* 100 MCG/ML 1 ML VIAL SUBCUT SCH ×3 (05:45→21:51)
[2019-06-19] MEDS: traMADol TAB* 50 MG PO PRN ×3 (06:34→21:51)
[2019-06-19 06:48] LABS: Hematocrit 32 % (35-47); Hemoglobin 10.2 g/dL (12.0-16.0); Mean Corpuscular HGB Conc 32 g/dL (31-36); Mean Corpuscular Hemoglobin 26 pg (27-31); Mean Corpuscular Volume 82 fL (80-97); Mean Platelet Volume 8.2 fL (7.4-10.4); Platelet Count 373 10^3/uL (150-450); Red Blood Count 3.89 10^6 /uL (3.70-4.87); Red Cell Distribution Width 18 % (10-15); White Blood Count 12.1 10^3/uL (3.5-10.8)
[2019-06-19 06:58] LABS: Albumin 3.3 g/dL (3.2-5.2); Albumin/Globulin Ratio 0.8 (1-3); BUN/Creatinine Ratio 24.5 (8-20); Calcium 8.8 mg/dL (8.6-10.3); EGFR African American 158.1 (>60); EGFR Non-African American 130.6 (>60); Globulin 4.1 g/dL (2-4); Magnesium 1.9 mg/dL (1.9-2.7); Phosphorus 3.7 mg/dL (2.5-5.0); Potassium 3.9 mmol/L (3.5-5.0); Total Bilirubin 0.6 mg/dL (0.2-1.0); Total Protein 7.4 g/dL (6.4-8.9)
[2019-06-19 07:20] LABS: ABS Basophils 0.1 10^3/ul (0-0.2); ABS Eosinophils 0.6 10^3/ul (0-0.6); ABS Lymphocytes 2.8 10^3/ul (1.0-4.8); ABS Monocytes 1.3 10^3/ul (0-0.8); ABS Neutrophils 7.4 10^3/ul (1.5-7.7); Eosinophil % 4.6 %; Lymphocyte % 22.8 %
[2019-06-19 07:23] LABS: Polychromasia 1+
[2019-06-19] MEDS: SPIRIVA Respimat* (tiotropium) 2.5 mcg/inh Inhaler INH SCH (09:59)
[2019-06-19] MEDS: Docusate CAP* 100 MG PO SCH ×2 (09:59→20:54)
[2019-06-19] MEDS: Nystatin TOP POWDER* 15 GM BTL TOPICAL SCH ×3 (09:59→21:51)
[2019-06-19] MEDS: Pantoprazole IV* 40 MG IV SCH (09:59)
[2019-06-19] MEDS: Senna TAB 8.6 mg* TAB PO SCH (09:59)
[2019-06-19] MEDS: Nystatin CREAM* 15 GM TUBE TOPICAL SCH ×2 (10:03→20:54)
[2019-06-19] MEDS: Morphine INJ* 2 MG/ML 1 ML SYRINGE (TWO MG - NEW SYRINGE VERSION) IV PRN (11:36)
--- NOTE | 2019-06-19 12:34 | PN ---
Progress Note - Progress Note Date of Service: 06/19/19 SOAP: Subjective: []no complaints Objective: [] Intake & Output 06/17/19 06/18/19 06/19/19 06/20/19 06:59 06:59 06:59 06:59 Intake Total 2494 2354 1805 Output Total 2183 2307 3335 550 Balance 311 49 -6840 -550 Weight 169 lb 4.8 oz 167 lb 14.4 oz 171 lb 9.6 oz Intake: IV Fluids 1744 1844 TPN 1744 1844 TPN/PPN 1805 Oral 750 510 0 Output: KARLEY #1 5 50 25 KARLEY #2 3 7 10 Wound Vac 800 150 Urine 2175 2250 2500 400 Other: Date of Last Bowel 06/16/2019 Movement # Bowel Movements 1 Estimated Stool Amount Small Assessment: []stable drainage decreased karley#1 low output wound clean/granulating, no drainage Plan: []cont tpn,npo, no need for abx likeley drain study saturday
[2019-06-19] MEDS: TPN* 24 HR with Dextrose 40% Water* 500 ML, Amino Acid Infusion 10%* 850 ML, Sterile Wa... CENTR SCH ×12 (17:30)
[2019-06-19] MEDS: Miconazole VAG.SUPP* 100 MG VAGINAL SCH (20:55)
[2019-06-20] MEDS: Morphine INJ* 2 MG/ML 1 ML SYRINGE (TWO MG - NEW SYRINGE VERSION) IV PRN ×3 (00:32→10:37)
[2019-06-20] MEDS: traMADol TAB* 50 MG PO PRN ×4 (04:08→22:34)
[2019-06-20] MEDS: Octreotide Acetate* 100 MCG/ML 1 ML VIAL SUBCUT SCH ×3 (05:55→22:35)
[2019-06-20] MEDS: Levothyroxine TAB* 75 MCG TAB PO SCH (05:55)
[2019-06-20] MEDS: Heparin VIAL(*) 5000 UNITS/ML VIAL (FIVE THOUSAND) SUBCUT SCH ×3 (05:55→22:35)
[2019-06-20] MEDS: Pantoprazole IV* 40 MG IV SCH (08:46)
[2019-06-20] MEDS: SPIRIVA Respimat* (tiotropium) 2.5 mcg/inh Inhaler INH SCH (08:51)
[2019-06-20] MEDS: Senna TAB 8.6 mg* TAB PO SCH (08:52)
[2019-06-20] MEDS: Docusate CAP* 100 MG PO SCH ×2 (08:52→22:34)
[2019-06-20] MEDS: Nystatin TOP POWDER* 15 GM BTL TOPICAL SCH ×3 (08:53→19:55)
[2019-06-20] MEDS: Nystatin CREAM* 15 GM TUBE TOPICAL SCH ×2 (08:55→19:55)
--- NOTE | 2019-06-20 12:51 | PN ---
Progress Note - Progress Note Date of Service: 06/20/19 Note: Surgery Progress Note S: Patient has had left flank pain she says for the past two days. Today when she tried to stand and had significant pain and had to sit back down. Otherwise no new events. O: Vital Signs - 24 hr 06/19/19 06/19/19 06/19/19 15:36 16:03 20:05 Temperature 97.6 F 98.4 F Pulse Rate 80 81 Respiratory 18 18 18 Rate Blood Pressure 109/68 121/60 (mmHg) O2 Sat by Pulse 96 96 Oximetry 06/19/19 06/19/19 06/20/19 20:54 21:51 00:13 Temperature 98.0 F Pulse Rate 81 Respiratory 18 18 18 Rate Blood Pressure 112/71 (mmHg) O2 Sat by Pulse 95 Oximetry 06/20/19 06/20/19 06/20/19 00:32 02:19 03:40 Temperature 97.7 F Pulse Rate 81 Respiratory 20 18 18 Rate Blood Pressure 118/67 (mmHg) O2 Sat by Pulse 97 Oximetry 06/20/19 06/20/19 06/20/19 04:08 06:04 06:55 Temperature Pulse Rate Respiratory 20 18 18 Rate Blood Pressure (mmHg) O2 Sat by Pulse Oximetry 06/20/19 06/20/19 06/20/19 07:30 07:40 08:00 Temperature 98.5 F Pulse Rate 78 Respiratory 20 16 20 Rate Blood Pressure 121/75 (mmHg) O2 Sat by Pulse 96 Oximetry 06/20/19 06/20/19 06/20/19 10:05 10:37 11:47 Temperature Pulse Rate Respiratory 18 18 18 Rate Blood Pressure (mmHg) O2 Sat by Pulse Oximetry 06/20/19 06/20/19 11:48 12:00 Temperature 98.6 F Pulse Rate 74 Respiratory 18 16 Rate Blood Pressure 120/69 (mmHg) O2 Sat by Pulse 97 Oximetry Laboratory Results - last 24 hr 06/19/19 20:58 POC Glucose (mg/dL) 131 H Intake & Output 06/19/19 06/20/19 06/20/19 22:59 06:59 14:59 Intake Total 3571 Output Total 475 600 300 Balance 3096 -600 -300 Weight 165 lb 11.2 oz Intake: IV Fluids 3571 TPN 3571 Oral 0 Output: Wound Vac 75 Urine 400 600 300 Physical exam: Abdomen- soft, edematous. VAC in place in midline, to suction. RLQ PIETRO with brownish drainage, LLQ PIETRO with scant serosanguinous drainage. Drain volume has not been recorded for several days. In LLQ and flank there is no significant bruising, +tenderness. Patient is able to flex hip and knee without reproducing pain A/P: 58 F POD 27 sigmoid colectomy, POD 22 takeback for inadvertent enterotomy, with new LLQ/flank pain. - Patient remains afebrile, VSS. Differential for new left lower quadrant/ flank pain could be muskuloskeletal as it seems to increase with movement, kidney stone, or intraabdominal abscess/fluid collection. Will continue to observe for now and use ice packs. Pain improves with oral medications. - Continue NPO and TPN - Possible drain study saturday, per Dr. Ponce - Patient remains off abx
[2019-06-20] MEDS: Scopolamine PATCH Remove* 1 NOTE MISC PATCH OFF SCH (17:11)
[2019-06-20] MEDS: Scopolamine 1.5 mg* PATCH TRANSDERM SCH (17:11)
[2019-06-20] MEDS: TPN* 24 HR with Dextrose 40% Water* 500 ML, Amino Acid Infusion 10%* 850 ML, Sterile Wa... CENTR SCH ×12 (17:16)
[2019-06-21] MEDS: Octreotide Acetate* 100 MCG/ML 1 ML VIAL SUBCUT SCH ×3 (06:04→22:50)
[2019-06-21] MEDS: Levothyroxine TAB* 75 MCG TAB PO SCH (06:04)
[2019-06-21] MEDS: Heparin VIAL(*) 5000 UNITS/ML VIAL (FIVE THOUSAND) SUBCUT SCH ×3 (06:04→22:50)
[2019-06-21] MEDS: traMADol TAB* 50 MG PO PRN ×3 (06:05→18:25)
[2019-06-21 06:20] LABS: Albumin 3.3 g/dL (3.2-5.2); Albumin/Globulin Ratio 0.9 (1-3); BUN/Creatinine Ratio 29.2 (8-20); Calcium 8.9 mg/dL (8.6-10.3); EGFR African American 161.9 (>60); EGFR Non-African American 133.8 (>60); Globulin 3.8 g/dL (2-4); Magnesium 1.8 mg/dL (1.9-2.7); Phosphorus 3.6 mg/dL (2.5-5.0); Potassium 4.2 mmol/L (3.5-5.0); Total Bilirubin 0.5 mg/dL (0.2-1.0); Total Protein 7.1 g/dL (6.4-8.9)
[2019-06-21] MEDS: Nystatin TOP POWDER* 15 GM BTL TOPICAL SCH ×3 (09:15→21:33)
[2019-06-21] MEDS: Pantoprazole IV* 40 MG IV SCH (09:15)
[2019-06-21] MEDS: SPIRIVA Respimat* (tiotropium) 2.5 mcg/inh Inhaler INH SCH (09:15)
[2019-06-21] MEDS: Docusate CAP* 100 MG PO SCH ×2 (09:15→21:33)
[2019-06-21] MEDS: Senna TAB 8.6 mg* TAB PO SCH (09:15)
[2019-06-21] MEDS: Nystatin CREAM* 15 GM TUBE TOPICAL SCH ×2 (09:17→21:33)
--- NOTE | 2019-06-21 12:55 | PN ---
Progress Note - Progress Note Date of Service: 06/21/19 Note: Surgery Progress Note S: Patient's left flank/LLQ pain is much better and improved with icing. She has been ambulating. She feels the RLQ drain is pulling on her. Otherwise no new events. O: Vital Signs - 24 hr 06/20/19 06/20/19 06/20/19 16:03 16:23 17:33 Temperature 98.2 F Pulse Rate 81 Respiratory 18 16 18 Rate Blood Pressure 119/66 (mmHg) O2 Sat by Pulse 98 Oximetry 06/20/19 06/20/19 06/20/19 19:41 20:00 22:34 Temperature 97.8 F Pulse Rate 82 Respiratory 18 16 20 Rate Blood Pressure 110/62 (mmHg) O2 Sat by Pulse 100 Oximetry 06/20/19 06/21/19 06/21/19 23:39 00:40 03:58 Temperature 98.6 F 98.4 F Pulse Rate 88 78 Respiratory 18 18 18 Rate Blood Pressure 121/69 123/71 (mmHg) O2 Sat by Pulse 98 96 Oximetry 06/21/19 06/21/19 06/21/19 06:05 07:33 08:00 Temperature 98.2 F Pulse Rate 74 Respiratory 18 16 20 Rate Blood Pressure 112/68 (mmHg) O2 Sat by Pulse 96 Oximetry 06/21/19 06/21/19 06/21/19 08:13 11:07 11:59 Temperature 97.7 F Pulse Rate 82 Respiratory 18 16 18 Rate Blood Pressure 121/65 (mmHg) O2 Sat by Pulse 97 Oximetry Laboratory Results - last 24 hr 06/20/19 06/21/19 06/21/19 08:51 00:40 05:32 Sodium 135 Potassium 4.2 Chloride 105 Carbon Dioxide 25 Anion Gap 5 BUN 14 Creatinine 0.48 L Est GFR ( Amer) 161.9 Est GFR (Non-Af Amer) 133.8 BUN/Creatinine Ratio 29.2 H Glucose 120 H POC Glucose (mg/dL) 158 H 153 H Calcium 8.9 Phosphorus 3.6 Magnesium 1.8 L Total Bilirubin 0.50 AST 12 L ALT 11 Alkaline Phosphatase 120 H Total Protein 7.1 Albumin 3.3 Globulin 3.8 Albumin/Globulin Ratio 0.9 L Prealbumin 17 L Triglycerides 139 Cholesterol 145 Intake & Output 06/20/19 06/21/19 06/21/19 22:59 06:59 14:59 Intake Total 1810 Output Total 595 615 450 Balance 1216 -615 -450 Weight 168 lb 3.2 oz Intake: IV Fluids 1810 TPN 1810 Output: PIETRO #1 30 5 PIETRO #2 15 10 Wound Vac 150 300 150 Urine 400 300 300 Other: Estimated Void Medium Date of Last Bowel 06/20/19 Movement # Bowel Movements 1 Estimated Stool Amount Medium # Voids 2 Physical exam: Abdomen- edema in abdominal wall, VAC in place to suction, non distended and minimally tender. RLQ drain adjusted, with same brown-opaque drainage, LLQ drain with s/s drainage A/P: 58 F POD 28 sigmoid colectomy, POD 23 takeback for inadvertent enterotomy, stable. - LLQ/flank pain improved, continue to observe and use ice packs for comfort - Continue NPO and TPN - Possible drain study Saturday, per Dr. Ponce - Patient remains off abx
[2019-06-21] MEDS: Morphine INJ* 2 MG/ML 1 ML SYRINGE (TWO MG - NEW SYRINGE VERSION) IV PRN ×2 (15:23→22:49)
[2019-06-21] MEDS: Ondansetron INJ* 2 MG/ML VIAL IV PRN ×2 (15:27→23:08)
[2019-06-21] MEDS: TPN* 24 HR with Dextrose 40% Water* 500 ML, Amino Acid Infusion 10%* 850 ML, Sterile Wa... CENTR SCH ×12 (17:15)
[2019-06-22] MEDS: Levothyroxine TAB* 75 MCG TAB PO SCH (05:58)
[2019-06-22] MEDS: Heparin VIAL(*) 5000 UNITS/ML VIAL (FIVE THOUSAND) SUBCUT SCH ×3 (05:58→22:19)
[2019-06-22] MEDS: Octreotide Acetate* 100 MCG/ML 1 ML VIAL SUBCUT SCH ×3 (05:58→22:19)
[2019-06-22] MEDS: traMADol TAB* 50 MG PO PRN ×3 (06:07→19:17)
[2019-06-22 06:44] LABS: Albumin 3.2 g/dL (3.2-5.2); Albumin/Globulin Ratio 0.8 (1-3); BUN/Creatinine Ratio 28.8 (8-20); Calcium 8.9 mg/dL (8.6-10.3); EGFR African American 147.6 (>60); Globulin 3.8 g/dL (2-4); Magnesium 1.8 mg/dL (1.9-2.7); Phosphorus 3.8 mg/dL (2.5-5.0); Potassium 4.4 mmol/L (3.5-5.0); Total Bilirubin 0.5 mg/dL (0.2-1.0)
[2019-06-22] MEDS: Nystatin CREAM* 15 GM TUBE TOPICAL SCH ×2 (10:01→21:05)
[2019-06-22] MEDS: Pantoprazole IV* 40 MG IV SCH (10:01)
[2019-06-22] MEDS: Senna TAB 8.6 mg* TAB PO SCH (10:01)
[2019-06-22] MEDS: Docusate CAP* 100 MG PO SCH ×2 (10:01→21:05)
[2019-06-22] MEDS: Nystatin TOP POWDER* 15 GM BTL TOPICAL SCH ×3 (10:01→21:05)
[2019-06-22] MEDS: SPIRIVA Respimat* (tiotropium) 2.5 mcg/inh Inhaler INH SCH (10:04)
[2019-06-22] MEDS ORDERED: Alteplase (CATHFLO)* 2 MG VIAL IV ONE (12:34)
[2019-06-22] MEDS ORDERED: Magnesium Sulfate 2 GM IV* 2 GM/50 ML BAG IVPB ONE (13:04)
--- NOTE | 2019-06-22 16:32 | PN ---
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 related to suction/drain Plan: []remove suction, continue npo/tpn, repeat study and or will likely eventually remove drain next several days discussed with patient
[2019-06-22] MEDS: TPN* 24 HR with Dextrose 40% Water* 500 ML, Amino Acid Infusion 10%* 850 ML, Sterile Wa... CENTR SCH ×12 (16:47)
[2019-06-23] MEDS: traMADol TAB* 50 MG PO PRN ×3 (03:55→17:27)
[2019-06-23] MEDS: Levothyroxine TAB* 75 MCG TAB PO SCH (05:54)
[2019-06-23] MEDS: Heparin VIAL(*) 5000 UNITS/ML VIAL (FIVE THOUSAND) SUBCUT SCH ×3 (05:54→22:26)
[2019-06-23] MEDS: Octreotide Acetate* 100 MCG/ML 1 ML VIAL SUBCUT SCH ×3 (06:05→22:27)
[2019-06-23 06:58] LABS: Albumin 3.4 g/dL (3.2-5.2); Albumin/Globulin Ratio 0.8 (1-3); BUN/Creatinine Ratio 30.2 (8-20); Calcium 8.9 mg/dL (8.6-10.3); EGFR African American 144.4 (>60); EGFR Non-African American 119.3 (>60); Globulin 4.1 g/dL (2-4); Magnesium 1.8 mg/dL (1.9-2.7); Potassium 4.2 mmol/L (3.5-5.0); Total Bilirubin 0.6 mg/dL (0.2-1.0); Total Protein 7.5 g/dL (6.4-8.9)
[2019-06-23] MEDS: Senna TAB 8.6 mg* TAB PO SCH ×2 (09:12→09:17)
[2019-06-23] MEDS: Pantoprazole IV* 40 MG IV SCH (09:12)
[2019-06-23] MEDS: Docusate CAP* 100 MG PO SCH ×2 (09:12→20:05)
[2019-06-23] MEDS: Nystatin CREAM* 15 GM TUBE TOPICAL SCH ×3 (09:12→20:13)
[2019-06-23] MEDS: Nystatin TOP POWDER* 15 GM BTL TOPICAL SCH ×3 (09:13→20:11)
[2019-06-23] MEDS: SPIRIVA Respimat* (tiotropium) 2.5 mcg/inh Inhaler INH SCH (09:13)
[2019-06-23] MEDS ORDERED: Dextran 70/Hypromellose Tears Eye Drops 15 ml BTL (for Artificials Tears) BOTH EYES PRN (09:27)
[2019-06-23] MEDS ORDERED: Magnesium Sulfate 2 GM IV* 2 GM/50 ML BAG IVPB ONE (11:38)
[2019-06-23] MEDS: TPN* 24 HR with Dextrose 40% Water* 500 ML, Amino Acid Infusion 10%* 850 ML, Sterile Wa... CENTR SCH ×12 (17:25)
[2019-06-23] MEDS: Scopolamine PATCH Remove* 1 NOTE MISC PATCH OFF SCH (17:26)
[2019-06-23] MEDS: Scopolamine 1.5 mg* PATCH TRANSDERM SCH (17:26)
[2019-06-23] MEDS: LORazepam TAB(*) 0.5 MG PO PRN (20:04)
[2019-06-24] MEDS: traMADol TAB* 50 MG PO PRN ×4 (03:11→21:37)
[2019-06-24] MEDS: Levothyroxine TAB* 75 MCG TAB PO SCH (06:34)
[2019-06-24] MEDS: Octreotide Acetate* 100 MCG/ML 1 ML VIAL SUBCUT SCH ×3 (06:35→21:53)
[2019-06-24] MEDS: Heparin VIAL(*) 5000 UNITS/ML VIAL (FIVE THOUSAND) SUBCUT SCH ×3 (06:37→21:56)
[2019-06-24 07:02] LABS: Albumin 3.4 g/dL (3.2-5.2); Albumin/Globulin Ratio 0.9 (1-3); BUN/Creatinine Ratio 30.6 (8-20); Calcium 8.9 mg/dL (8.6-10.3); EGFR African American 158.1 (>60); EGFR Non-African American 130.6 (>60); Magnesium 1.8 mg/dL (1.9-2.7); Phosphorus 3.1 mg/dL (2.5-5.0); Potassium 4.3 mmol/L (3.5-5.0); Total Bilirubin 0.6 mg/dL (0.2-1.0); Total Protein 7.4 g/dL (6.4-8.9)
[2019-06-24] MEDS: Docusate CAP* 100 MG PO SCH ×2 (09:31→21:53)
[2019-06-24] MEDS: Senna TAB 8.6 mg* TAB PO SCH (09:31)
[2019-06-24] MEDS: Nystatin CREAM* 15 GM TUBE TOPICAL SCH ×2 (09:32→21:58)
[2019-06-24] MEDS: SPIRIVA Respimat* (tiotropium) 2.5 mcg/inh Inhaler INH SCH (09:35)
[2019-06-24] MEDS: Nystatin TOP POWDER* 15 GM BTL TOPICAL SCH ×3 (09:36→21:58)
[2019-06-24] MEDS: Pantoprazole IV* 40 MG IV SCH (09:36)
[2019-06-24] MEDS: LORazepam TAB(*) 0.5 MG PO PRN (14:06)
[2019-06-24] MEDS: TPN* 24 HR with Dextrose 40% Water* 500 ML, Amino Acid Infusion 10%* 850 ML, Sterile Wa... CENTR SCH ×12 (16:45)
[2019-06-25] MEDS: traMADol TAB* 50 MG PO PRN ×3 (07:31→20:56)
[2019-06-25] MEDS: Levothyroxine TAB* 75 MCG TAB PO SCH (07:31)
[2019-06-25] MEDS: Octreotide Acetate* 100 MCG/ML 1 ML VIAL SUBCUT SCH ×3 (07:32→21:59)
[2019-06-25] MEDS: Heparin VIAL(*) 5000 UNITS/ML VIAL (FIVE THOUSAND) SUBCUT SCH ×3 (07:32→21:59)
[2019-06-25 08:10] LABS: Albumin 3.5 g/dL (3.2-5.2); Albumin/Globulin Ratio 0.9 (1-3); Calcium 9.2 mg/dL (8.6-10.3); EGFR African American 154.4 (>60); EGFR Non-African American 127.6 (>60); Globulin 3.9 g/dL (2-4); Magnesium 1.9 mg/dL (1.9-2.7); Phosphorus 3.9 mg/dL (2.5-5.0); Potassium 4.6 mmol/L (3.5-5.0); Total Bilirubin 0.5 mg/dL (0.2-1.0); Total Protein 7.4 g/dL (6.4-8.9)
[2019-06-25] MEDS: Docusate CAP* 100 MG PO SCH ×2 (09:24→20:00)
[2019-06-25] MEDS: Senna TAB 8.6 mg* TAB PO SCH (09:25)
[2019-06-25] MEDS: SPIRIVA Respimat* (tiotropium) 2.5 mcg/inh Inhaler INH SCH (09:25)
[2019-06-25] MEDS: Nystatin CREAM* 15 GM TUBE TOPICAL SCH ×2 (09:26→20:01)
[2019-06-25] MEDS: Nystatin TOP POWDER* 15 GM BTL TOPICAL SCH (09:26)
[2019-06-25] MEDS: Pantoprazole IV* 40 MG IV SCH (09:26)
[2019-06-25] MEDS: LORazepam TAB(*) 0.5 MG PO PRN ×2 (11:41→22:53)
[2019-06-25] MEDS: TPN* 24 HR with Dextrose 40% Water* 500 ML, Amino Acid Infusion 10%* 850 ML, Sterile Wa... CENTR SCH ×12 (16:56)
[2019-06-25] MEDS: Ondansetron INJ* 2 MG/ML VIAL IV PRN (23:05)
[2019-06-26] MEDS: traMADol TAB* 50 MG PO PRN ×2 (04:04→10:01)
[2019-06-26 06:16] LABS: Albumin 3.4 g/dL (3.2-5.2); Albumin/Globulin Ratio 0.9 (1-3); BUN/Creatinine Ratio 40.4 (8-20); Calcium 8.8 mg/dL (8.6-10.3); EGFR African American 165.9 (>60); EGFR Non-African American 137.1 (>60); Globulin 3.9 g/dL (2-4); Magnesium 1.9 mg/dL (1.9-2.7); Potassium 4.4 mmol/L (3.5-5.0); Total Bilirubin 0.4 mg/dL (0.2-1.0); Total Protein 7.3 g/dL (6.4-8.9)
[2019-06-26] MEDS: Heparin VIAL(*) 5000 UNITS/ML VIAL (FIVE THOUSAND) SUBCUT SCH (06:17)
[2019-06-26] MEDS: Octreotide Acetate* 100 MCG/ML 1 ML VIAL SUBCUT SCH (06:17)
[2019-06-26] MEDS: Levothyroxine TAB* 75 MCG TAB PO SCH (06:19)
[2019-06-26] MEDS: SPIRIVA Respimat* (tiotropium) 2.5 mcg/inh Inhaler INH SCH (08:43)
[2019-06-26] MEDS: Docusate CAP* 100 MG PO SCH (08:44)
[2019-06-26] MEDS: Pantoprazole IV* 40 MG IV SCH (08:45)
[2019-06-26] MEDS: Nystatin CREAM* 15 GM TUBE TOPICAL SCH (08:45)
[2019-06-26] MEDS: Senna TAB 8.6 mg* TAB PO SCH (08:45)
[2019-06-26 12:20] VITALS: BP 112/70
--- NOTE | 2019-06-26 12:44 | PN ---
Progress Note - Progress Note Date of Service: 06/24/19 Note: Late entry for 06/24/19. Per Dr. Ponce's directive, the Left PIETRO drain was removed. The Right PIETRO drain was backed out about 2 inches and redressed.
[2019-06-26] MEDS: LORazepam TAB(*) 0.5 MG PO PRN (12:47)
--- NOTE | 2019-06-26 13:00 | PN ---
Progress Note - Progress Note Date of Service: 06/26/19 Note: S: The only thing new that she reports is that the drainage from the Right PIETRO site ran under the gauze and down her side. There was no volume recorded from the PIETRO under her I&Os and only about 10 cc in the bulb at present. She continues to have some mild to moderate pain (unchanged and relieved by Tramadol ), and occasionally notes some nausea and/or dry heaves. No appreciable stool. No SOB. O: Vital Signs - 8 hr 06/26/19 06/26/19 06/26/19 06:20 07:43 08:00 Temperature 97.8 F Pulse Rate 95 Respiratory 17 16 18 Rate Blood Pressure 117/78 (mmHg) O2 Sat by Pulse Oximetry 06/26/19 06/26/19 06/26/19 10:01 12:20 12:31 Temperature 97.9 F Pulse Rate 95 Respiratory 18 16 18 Rate Blood Pressure 112/70 (mmHg) O2 Sat by Pulse 100 Oximetry 06/26/19 12:47 Temperature Pulse Rate Respiratory 18 Rate Blood Pressure (mmHg) O2 Sat by Pulse Oximetry Intake and Output Last 24 Hours 06/24/19 06/25/19 06/26/19 06/27/19 06:59 06:59 06:59 06:59 Intake Total 1855 1755 1831 Output Total 1437 2105 1100 0 Balance 418 -350 731 0 Weight 163 lb 4.8 oz 163 lb 11.2 oz 162 lb Intake: IV Fluids 1802 TPN 1802 IVPB 53 Magnesium sulfate 53 TPN/PPN 1735 1831 Oral 0 20 0 Output: PIETRO #1 20 25 0 PIETRO #2 17 0 Urine 1400 2080 1100 0 Other: Date of Last Bowel 06/24/19 06/25/2019 Movement # Bowel Movements 1 1 Estimated Stool Amount Medium Medium Gen: sitting up in bed; NAD Heart: reg Lungs: clear Abd: soft; mild diffuse tenderness, c/w previous. Midline wound measures ~ 16 x 1.5 cm with two areas of depth (~ 1.5 cm each) at the inferior and superior aspects of the wound. The right PIETRO drain site shows that the surrounding skin is mildly erythematous and there is some staining on the skin lateral form last night's drainage. This was cleaned with saline and then a layer of vasoline applied to the skin. As there is little to no drainage going to the bulb, I cut the drain off at the beginning of the perforations and gauze pads were applied around it to contain the drainage. A: s/p laparoscopic sigmoid colectomy with return to OR for repair of enterotomy ; entero-drain fistula P: ok for discharge home on TPN per Dr. Ponce. Wound care instructions reviewed w/ the patient and will be written in her d/c plan. She will see Dr. Ponce on Saturday in the office.
--- NOTE | 2019-06-26 21:17 | DS ---
CC: Dori Wilburn NP, [facility] * DISCHARGE SUMMARY: DATE OF ADMISSION: 05/25/19 DATE OF DISCHARGE: 06/26/19 ATTENDING SURGEON: Dr. Rosendo Ponce.* (DICTATED BY LD HOGAN) HOSPITAL COURSE: Please refer to admission history and physical and operative note for details. The patient was taken to the operating room on 05/25/19, at which time she underwent robotic sigmoid colectomy with lysis of extensive intraabdominal adhesions for recurrent diverticulitis. She underwent barium enema on 05/28/19 which showed no evidence of leak. The morning of 05/29/19, she was found to be hypotensive and tachycardic and CT scan showed large pelvic fluid collection and free air. She was taken to the operating room on 05/29/19 and underwent exploratory laparotomy with drainage of fluid collection, repair of enterotomy and placement of VAC dressing. She spent some time postoperatively in the ICU and eventually was transferred to the floor. She had a slow postoperative course, but was demonstrating GI function. Two Juliocesar -Gonzalez drains had been placed at the time of the surgery. Output from one of these (on the right) appeared to be bilious and output increased in correlation with her oral intake, though was never large volumes (60 to 80 cc or less for 24 -hour period). Therefore, a PICC line was placed. She was initiated on tPA and made n.p.o. She was also given octreotide subcutaneously. She continued to have small amounts of drainage from each PIETRO drain, though one on the right at times being bilious in appearance. 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 Suction was removed from the drains with no appreciable change in output. On 06/24/19, the left PIETRO drain was removed and the right drain was advanced approximately 2 inches again with no appreciable clinical change. Drain was further advanced by Dr. Ponce on 06/25/19 and as of the morning of 06/26/19, the drain appeared to have come out of the wound further such that I would estimate that approximately half the perforated portion of the drain was out and the other half remained inside. There was some drainage overnight, but it was hard to quantify because it was not preferentially draining to the PIETRO bulb. The morning of discharge, the patient was examined (see separate progress note from that date). There is an open midline wound that had been treated with a VAC dressing which was removed by Dr. Ponce on 06/25/19. This wound measured approximately 16 cm in length and up to 1.5 cm in width. Majority of the wound was superficial and clean with granulation tissue. There are 2 areas, one superiorly, one inferiorly with depth of approximately 1.5 cm, but no additional tunneling and no expressible exudate. These were packed with the end of the saline moistened 4x4 gauze and the remainder of the saline moist gauze was placed over the midline wound with cover dressings to complete. The right-sided PIETRO site did demonstrate some mild erythema of the surrounding skin, likely related to the drainage from the fistula. This was cleansed with saline and then a barrier layer of Vaseline placed around the drain and then gauze pads to collect any further drainage. She was instructed on wound care instructions and these were also provided in written form for the patient and the home visiting nurse service. Antibiotics had been stopped approximately 1 week prior to discharge. Her TPN was converted to a nighttime schedule to be run over 12 hours, which she tolerated well and this will be continued in the outpatient setting while she maintains n.p.o. status. Consults during the admission included Cardiology and Infectious Disease. An echocardiogram had been done on 06/02/19 which was essentially a normal study with normal left ventricular systolic function. She has an office followup with Dr. Ponce scheduled for 06/30/19. ADMISSION DIAGNOSIS: Recurrent diverticulitis. DISCHARGE DIAGNOSES: Include small bowel enterotomy, requiring exploratory laparotomy and repair. Enteric fistula, requiring n.p.o. status. Placement of PICC line and initiation of TPN. She was also treated for vaginal yeast infection. MEDICATIONS: Upon discharge, she will resume her usual home medications. In addition, she was prescribed: 1. Zofran 4 mg ODT q.6 hours p.r.n. 2. Ativan 0.5 mg p.o. q.6 hours p.r.n. (MDD of 3). 3. Tramadol 50 mg p.o. q.6 hours p.r.n. moderate pain. The patient is discharged to home in fair condition. LD HOGAN [id number]/[facility] #: [id number] ANGÉLICA
== END 2019-06-26 13:52 | disposition home health service (06) | DRG 221 ==
LOC: AA 05:34 → SSU 15:38 → ICU 05-29 11:14 → SSU 05-31 11:20 → ICU 06-02 08:52 → SSU 06-07 11:18
PROVIDERS: ADMIT Surgery; ATTEND Surgery
PROC: 8E0W4CZ Robotic Assisted Procedure of Trunk Region, Percutaneous Endoscopic Approach (ICD-10-PCS; 2019-05-25)
PROC: 0DNU4ZZ Release Omentum, Percutaneous Endoscopic Approach (ICD-10-PCS; 2019-05-25)
PROC: 0DBN4ZZ Excision of Sigmoid Colon, Percutaneous Endoscopic Approach (ICD-10-PCS; principal; 2019-05-25 07:30)
PROC: 0W9G00Z Drainage of Peritoneal Cavity with Drainage Device, Open Approach (ICD-10-PCS; 2019-05-29)
PROC: 0DQ80ZZ Repair Small Intestine, Open Approach (ICD-10-PCS; 2019-05-29)
PROC: 3E03317 Introduction of Other Thrombolytic into Peripheral Vein, Percutaneous Approach (ICD-10-PCS; 2019-06-01)
PROC: 02HV33Z Insertion of Infusion Device into Superior Vena Cava, Percutaneous Approach (ICD-10-PCS; 2019-06-01)
DX: K57.32 Diverticulitis of large intestine without perforation or abscess without bleeding (principal); E43 Unspecified severe protein-calorie malnutrition; A41.9 Sepsis, unspecified organism; J98.11 Atelectasis; J90 Pleural effusion, not elsewhere classified; K56.7 Ileus, unspecified; K63.2 Fistula of intestine; K66.0 Peritoneal adhesions (postprocedural) (postinfection); E03.9 Hypothyroidism, unspecified; D64.9 Anemia, unspecified; D47.3 Essential (hemorrhagic) thrombocythemia; G47.33 Obstructive sleep apnea (adult) (pediatric); J45.909 Unspecified asthma, uncomplicated; E66.9 Obesity, unspecified; I45.81 Long QT syndrome; E83.42 Hypomagnesemia; R00.0 Tachycardia, unspecified; E86.0 Dehydration; E83.51 Hypocalcemia; R73.9 Hyperglycemia, unspecified; E83.39 Other disorders of phosphorus metabolism; E87.6 Hypokalemia; B37.3 Candidiasis of vulva and vagina; Y83.8 Other surgical procedures as the cause of abnormal reaction of the patient, or of later complication, without mention of misadventure at the time of the procedure; Y92.239 Unspecified place in hospital as the place of occurrence of the external cause; Z87.891 Personal history of nicotine dependence; Z88.6 Allergy status to analgesic agent; Z80.0 Family history of malignant neoplasm of digestive organs; Z88.0 Allergy status to penicillin; Z68.36 Body mass index [BMI] 36.0-36.9, adult; Z79.899 Other long term (current) drug therapy
CPT/HCPCS: 36415; 71045; 71046; 71275; 74176; 74177; 74270; 80048; 80053; 81003; 81015; 82330; 82465; 83605; 83735; 84100; 84132; 84134; 84478; 84484; 85025; 85610; 87040; 87086; 87641; 88307; 93005; 93306; 94640; A9270-GY; A9272-GY; C8929; J0330; J0610; J0692; J1100; J1170; J1335; J1644; J1885; J1940; J1956; J2060; J2250; J2270; J2354; J2405; J2704; J2765; J2997; J3010; J3475; J3480; J3490; J3535; Q9967

== ENCOUNTER 2019-07-14 17:23 | Emergency (ER) | payer OTHER ==
--- OUTSIDE RECORDS SUMMARY | 2019-07-14 17:33 | XMS REPORT | Continuity of Care Document ---
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 Supervisor [phone] Rehabilitation Jimenez Martinez DO - Emergency Medicine Care Team Information Finishing And Shipping Supervisor Blake Stout MD - Care Team Information Finishing And Shipping Supervisor [phone] Otolaryngology Dori Wilburn NP - Family Care Team Information Finishing And Shipping Supervisor [phone] Problems Active Problems Provider Date Asthma without [...] days for 25 years Smoking Status Reviewed: 07/07/19 Patient is a former Quit in January [...] Date Provider Humidifier Pls provide pt J45.20 [facility] 06/11/2017 2Gallon Misc with humidifoer MD Jono to be used at night Spiriva Respimat 2 puffs every day 4units [facility] 06/11/2017 2.5mcg/Act MD Jono Aerosol Symbicort 2 puff twice a 20.7gm J45.909 [facility] 12/27/2015 80-4.5mcg/Act Aerosol day as needed MD Jono Levothyroxine Sodium 1 by mouth every Unknown 75mcg day Tablets Ibuprofen 200 1 twice a day as Unknown 200mg Tablets needed Cpap at night Unknown Methylprednisolone FPD Unknown 4mg TBPK Tramadol HCL 1-2 tablets by Unknown 50mg Tablets mouth every 6 hours as needed pain History Medications Flagyl 1 tab by mouth at 1:00 3tabs Lani Zaidi, 05/18/2019 - 500mg pm, 2:00 pm and 11:00 Unknown Tablets pm the day before surgery Neomycin Sulfate 2 tabs by mouth at 6tabs Lani Zaidi, 05/18/2019 - 1:00 pm, 2:00 pm, and Unknown 500mg Tablets 11:00 pm the day before surgery Suprep Bowel Prep take according to the 354ml Lani Zaidi, 2018 - Kit instructions you Unknown received, the day 17.5-3.13-1.6GM/17 before surgery 7ML Solution Peg as directed the day 4000ml Lani Zaidi, 05/18/2019 - 3350/Electrolytes before surgery Unknown 240gm Solution Rec Immunizations CPT Code Status Date Vaccine Lot # [id number] Given 10/27/2015 Fluvirin Im 3Yrs And Older Vital Signs Date Vital Result Comment 07/07/2019 9:10am Weight 157.00 lb Heart Rate 80 /min Respiratory Rate 16 /min Body Temperature 98.6 F 07/02/2019 1:51pm Heart Rate 76 /min BP Systolic 120 mmHg BP Diastolic 78 mmHg Respiratory Rate 18 /min Body Temperature 98.1 F Results Test Acquired Date Facility Test Result H/L Range Note CBC Auto 07/06/2019 [facility] White Blood 10.5 10^3/uL Normal 3.5-10.[address] [place] [address] [phone] Red Blood Count 3.79 10^6/uL Normal 3.70-4.87 Hemoglobin 9.8 g/dL Low 12.0-16.0 Hematocrit 31 % Low 35-47 Mean Corpuscular Volume 81 fL Normal 80-97 Mean Corpuscular Hemoglobin 26 pg Low 27-31 Mean Corpuscular HGB Conc 32 g/dL Normal 31-36 Red Cell Distribution Width 17 % High 10-15 Platelet Count 302 10^3/uL Normal 150-450 Mean Platelet Volume 10.2 fL Normal 7.4-10.4 Abs Neutrophils 6.6 10^3/uL Normal 1.5-7.7 Abs Lymphocytes 2.6 10^3/uL Normal 1.0-4.8 Abs Monocytes 1.0 10^3/uL High 0-0.8 Abs Eosinophils 0.2 10^3/uL Normal 0-0.6 Abs Basophils 0.1 10^3/uL Normal 0-0.2 Abs Nucleated RBC 0.0 10^3/uL Granulocyte % 62.6 % Lymphocyte % 25.1 % Monocyte % 9.5 % Eosinophil % 2.1 % Basophil % 0.7 % Nucleated Red Blood Cells % 0.0 Comp Metabolic 07/06/2019 [facility] Sodium 136 mmol/L Normal 135-[address] [place] [address] [phone] Potassium 4.3 mmol/L Normal 3.5-5.0 Chloride 107 mmol/L Normal 101-111 Co2 Carbon Dioxide 22 mmol/L Normal 22-32 Anion Gap 7 mmol/L Normal 2-11 Glucose 107 mg/dL High 70-100 Blood Urea Nitrogen 13 mg/dL Normal 6-24 Creatinine 0.47 mg/dL Low 0.51-0.95 BUN/Creatinine Ratio 27.7 High 8-20 Calcium 9.0 mg/dL Normal 8.6-10.3 Total Protein 7.0 g/dL Normal 6.4-8.9 Albumin 3.4 g/dL Normal 3.2-5.2 Globulin 3.6 g/dL Normal 2-4 Albumin/Globulin Ratio 0.9 Low 1-3 Total Bilirubin 0.60 mg/dL Normal 0.2-1.0 Alkaline Phosphatase 104 U/L Normal 34-104 Alt 13 U/L Normal 7-52 Ast 15 U/L Normal 13-39 Egfr Non- 137.1 >60 Egfr 165.9 >60 1 Laboratory test 07/06/2019 [facility] Phosphorus 3.9 mg/dL Normal 2.5-5.0 finding [address] [place] [address] [phone] Magnesium 2.0 mg/dL Normal 1.9-2.7 Comp Metabolic Panel 06/29/2019 [facility] Sodium 134 mmol/L Low 135-145 [address] [place] [address] [phone] Potassium 4.5 mmol/L Normal 3.5-5.0 Chloride 105 mmol/L Normal 101-111 Co2 Carbon Dioxide 22 mmol/L Normal 22-32 Anion Gap 7 mmol/L Normal 2-11 Glucose 95 mg/dL Normal 70-100 Blood Urea Nitrogen 13 mg/dL Normal 6-24 Creatinine 0.41 mg/dL Low 0.51-0.95 BUN/Creatinine Ratio 31.7 High 8-20 Calcium 8.8 mg/dL Normal 8.6-10.3 Total Protein 6.7 g/dL Normal 6.4-8.9 Albumin 3.1 g/dL Low 3.2-5.2 Globulin 3.6 g/dL Normal 2-4 Albumin/Globulin Ratio 0.9 Low 1-3 Total Bilirubin 0.50 mg/dL Normal 0.2-1.0 Alkaline Phosphatase 97 U/L Normal 34-104 Alt 13 U/L Normal 7-52 Ast 17 U/L Normal 13-39 Egfr Non- 160.5 >60 Egfr 194.2 >60 2 Laboratory test 06/29/2019 [facility] Phosphorus 3.4 mg/dL Normal 2.5-5.0 finding [address] [place] [address] [phone] Magnesium 1.9 mg/dL Normal 1.9-2.7 CBC Auto 06/29/2019 [facility] White Blood 10.3 10^3/uL Normal 3.5-10.[address] [place] [address] [phone] Red Blood Count 3.61 10^6/uL Low 3.70-4.87 Hemoglobin 9.6 g/dL Low 12.0-16.0 Hematocrit 30 % Low 35-47 Mean Corpuscular Volume 82 fL Normal 80-97 Mean Corpuscular Hemoglobin 26 pg Low 27-31 Mean Corpuscular HGB Conc 32 g/dL Normal 31-36 Red Cell Distribution Width 17 % High 10-15 Platelet Count 285 10^3/uL Normal 150-450 Mean Platelet Volume 9.8 fL Normal 7.4-10.4 Abs Neutrophils 6.3 10^3/uL Normal 1.5-7.7 Abs Lymphocytes 2.5 10^3/uL Normal 1.0-4.8 Abs Monocytes 1.1 10^3/uL High 0-0.8 Abs Eosinophils 0.4 10^3/uL Normal 0-0.6 Abs Basophils 0.1 10^3/uL Normal 0-0.2 Abs Nucleated RBC 0.0 10^3/uL Granulocyte % 60.9 % Lymphocyte % 24.2 % Monocyte % 10.6 % Eosinophil % 3.7 % Basophil % 0.6 % Nucleated Red Blood Cells % 0.0 Manual 06/29/2019 [facility] Immature 3.0 % Normal 0-[address] [place] [address] [phone] Neutrophil % 60.0 % Lymphocytes % 24.0 % Monocytes % 6.0 % Eosinophils % 3.0 % Basophil % 2.0 % Variant Lymph % 2.0 % Normal 0-6 Metamyelocytes % 1.0 % Normal 0-2 Myelocytes % 2.0 % High 0-1 RBC Morphology Normal Normal Anisocytosis 1+ CBC Auto 05/18/2019 [facility] White Blood 11.1 10^3/uL High 3.5-10.8 [address] [place] [address] [phone] Red Blood Count 4.95 10^6/uL High 3.70-4.87 Hemoglobin 13.2 g/dL Normal 12.0-16.0 Hematocrit 40 % Normal 35-47 Mean Corpuscular Volume 81 fL Normal 80-97 Mean Corpuscular Hemoglobin 27 pg Normal 27-31 Mean Corpuscular HGB Conc 33 g/dL Normal 31-36 Red Cell Distribution Width 17 % High 10-15 Platelet Count 273 10^3/uL Normal 150-450 Mean Platelet Volume 9.2 fL Normal 7.4-10.4 Abs Neutrophils 8.3 10^3/uL High 1.5-7.7 Abs Lymphocytes 2.1 10^3/uL Normal 1.0-4.8 Abs Monocytes 0.6 10^3/uL Normal 0-0.8 Abs Eosinophils 0.0 10^3/uL Normal 0-0.6 Abs Basophils 0.0 10^3/uL Normal 0-0.2 Abs Nucleated RBC 0.0 10^3/uL Granulocyte % 75.1 % Lymphocyte % 18.8 % Monocyte % 5.4 % Eosinophil % 0.3 % Basophil % 0.4 % Nucleated Red Blood Cells % 0.1 Comp Metabolic 05/18/2019 [facility] Sodium 137 mmol/L Normal 135-[address] [place] [address] [phone] Potassium 4.5 mmol/L Normal 3.5-5.0 Chloride 105 mmol/L Normal 101-111 Co2 Carbon Dioxide 28 mmol/L Normal 22-32 Anion Gap 4 mmol/L Normal 2-11 Glucose 91 mg/dL Normal 70-100 Blood Urea Nitrogen 14 mg/dL Normal 6-24 Creatinine 0.69 mg/dL Normal 0.51-0.95 BUN/Creatinine Ratio 20.3 High 8-20 Calcium 10.0 mg/dL Normal 8.6-10.3 Total Protein 7.3 g/dL Normal 6.4-8.9 Albumin 4.4 g/dL Normal 3.2-5.2 Globulin 2.9 g/dL Normal 2-4 Albumin/Globulin Ratio 1.5 Normal 1-3 Total Bilirubin 0.40 mg/dL Normal 0.2-1.0 Alkaline Phosphatase 112 U/L High 34-104 Alt 23 U/L Normal 7-52 Ast 14 U/L Normal 13-39 Egfr Non- 88.0 >60 Egfr 106.5 >60 4 1 Because ethnic data is not always [...] 5 Kidney failure <15 (or dialysis) 2 Because ethnic data is not always readily [...] 15-29 5 Kidney failure <15 (or dialysis) 3 AA 05/25 4 Because ethnic data is not always readily [...] 5 Kidney failure <15 (or dialysis) Procedures Date Code Description Status 06/02/2019 57454 ECHO Transthorasic Realtime 2D W Doppler & Color Flow Completed Hosp 05/25/2019 52138 Laparoscopy,Colectomy,Partial Completed W/Anastomsis,W/Coloproctostomy 05/25/2019 25218 Injection Intravenous To Test Blood Flow In Flap Or Completed Graft 03/24/2019 40499 EKG, Interpretation Only Completed 03/18/2019 [id number] Colonoscopy Completed 02/23/2019 80881 Diffusing Capacity Completed 02/23/2019 64619 Plethysmography Determination Lung Volumes & Per Airway Completed Resist 02/23/2019 09628 Pulmonary Function><Bronchodil Completed 02/24/2015 [id number] Colonoscopy Completed Medical Devices Description No Information Available Encounters Type Date Location Provider Dx Diagnosis Office Visit 06/11/2019 [facility] Allyn Key, D72.829 Elevated white 2:07p Assedith,ana Baker blood cell count, Hospitalists unspecified K56.7 Ileus, unspecified E03.9 Hypothyroidism, unspecified J45.909 Unspecified asthma, uncomplicated G47.33 Obstructive sleep apnea (adult) (pediatric) Office Visit 06/09/2019 2:07p [facility] Luis A Coppola, R10.9 Unspecified Assocana MD abdominal pain Hospitalists D72.829 Elevated white blood cell count, unspecified Office Visit 06/08/2019 [facility] Erica Agosto D72.829 Elevated white 11:23a For Hugo Kelly NP blood cell Diseases count, unspecified D47.3 Essential (hemorrhagic) thrombocythemia Office Visit 06/04/2019 [facility] Gloria Gavin D72.829 Elevated white 11:56a Hugo Varela M.D. blood cell Diseases count, unspecified Office Visit 06/04/2019 [facility] Rigoberto Hinojosa, J98.11 Atelectasis 11:54a Olivia D64.9 Anemia, unspecified E87.6 Hypokalemia E43 Unspecified severe protein-calorie malnutrition Office Visit 06/03/2019 [facility] Gloria Gavin D72.829 Elevated white 11:54a Hugo Varela M.D. blood cell Diseases count, unspecified Office Visit 06/03/2019 [facility] Rigoberto Hinojosa D72.829 Elevated white 11:53a MTono blood cell count, unspecified R10.9 Unspecified abdominal pain Office Visit 06/02/2019 [place] Niko Gavin R94.31 Abnormal 2:49p [facility] Olivia Argueta electrocardiogram [facility] [ECG] [EKG] Office Visit 06/02/2019 [facility] Romaine Leslye D72.829 Elevated white blood 11:52a For Infectious [place], cell count, Diseases M.D. 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 abdominal pain D72.829 Elevated white blood cell count, unspecified Office Visit 06/01/2019 11:29a [facility] Jorge Queen I45.81 Long QT syndrome [facility] DO Ashish FAC Office Visit 05/31/2019 11:53a [facility] Rigoberto Hinojosa, A41.9 Sepsis, M.D. unspecified organism E87.6 Hypokalemia Office Visit 05/30/2019 11:52a [facility] Rigoberto Hinojosa, A41.9 Sepsis, unspecified M.D. organism K56.7 Ileus, unspecified E87.6 Hypokalemia Office Visit 05/29/2019 11:52a [facility] Megan Martinez A41.9 Christy , unspecified organism K56.7 Ileus, unspecified E83.51 Hypocalcemia Office Visit 04/03/2019 [facility] And Anila Z01.811 Encounter for 9:00a [facility] MD Jono preprocedural [facility] respiratory examination J45.909 Unspecified asthma, uncomplicated G47.33 Obstructive sleep apnea (adult) (pediatric) Office Visit 04/02/2019 10:30a Surgical Rosendo Dey K57.32 Dvtrcli of lg int [facility] MD Kris w/o perforation or abscess w/o bleeding Office Visit 03/26/2019 12:46p [facility] Kayla K57.32 Dvtrcli of lg int Assoc,pc BLESSING Guerra w/o perforation Hospitalists or abscess w/o bleeding Office Visit 03/25/2019 12:46p [facility] Kayla K57.32 Dvtrcli of lg int Assoc,pc O'caity, PA-C w/o perforation Hospitalists or abscess w/o bleeding J45.909 Unspecified asthma, uncomplicated Office Visit 03/24/2019 [facility] Kayla K57.32 Dvtrcli of lg int 12:45p Assoc,pc LD Guerra-C w/o perforation Hospitalists or abscess w/o bleeding R07.9 Chest pain, unspecified J45.909 Unspecified asthma, uncomplicated Office Visit 03/24/2019 Surgical Rosendo Dey K57.30 Dvrtclos of lg 7:00a [facility]der Ponce MD int w/o perforation or abscess w/o bleeding Office Visit 03/23/2019 [facility] K57.32 Dvtrcli of lg int 12:45p Assoc,pc Vimal, [employer]ESSOR w/o perforation Hospitalists or abscess w/o bleeding R11.0 Nausea E03.9 Hypothyroidism, unspecified Office Visit 03/23/2019 7:00a Surgical Rosendo Dye K57.30 [facility]rtclos of lg [facility] Ponce MD int w/o perforation or abscess w/o bleeding Office Visit 03/22/2019 12:45p [facility] Catia K57.32 Dvtrcli of lg int Assoc,ana Stoll, [employer]ESSOR w/o perforation Hospitalists or abscess w/o bleeding Assessments Date Code Description Provider 06/30/2019 K57.32 Diverticulitis of large intestine Rosendo Ponce MD without perforation or abscess without bleeding 06/26/2019 K57.32 Diverticulitis of large intestine LD Briceno without perforation or abscess without bleeding 06/22/2019 K57.32 Diverticulitis of large intestine Rosendo Ponce MD without perforation or abscess without bleeding 06/21/2019 K57.32 Diverticulitis of large intestine Salome Piña MD without perforation or abscess without bleeding 06/20/2019 K57.32 Diverticulitis of large intestine Salome Piña MD without perforation or abscess without bleeding 06/19/2019 K57.32 Diverticulitis of large intestine Rosendo Ponce MD without perforation or abscess without bleeding 06/18/2019 K57.32 Diverticulitis of large intestine Jorge Luevano MD, FACS without perforation or abscess without bleeding 06/17/2019 K57.32 Diverticulitis of large intestine Osorio Diaz PA-C without perforation or abscess without bleeding 06/16/2019 K57.32 Diverticulitis of large intestine Rosendo Ponce MD without perforation or abscess without bleeding 06/15/2019 K57.32 Diverticulitis of large intestine Osorio Diaz PA-C without perforation or abscess without bleeding 06/14/2019 K57.32 Diverticulitis of large intestine Geri Gamboa MD without perforation or abscess without bleeding 06/13/2019 K57.32 Diverticulitis of large intestine Geri Gamboa MD without perforation or abscess without bleeding 06/12/2019 K57.32 Diverticulitis of large intestine Osorio Diaz PA-C without perforation or abscess without bleeding 06/11/2019 K57.32 Diverticulitis of large intestine Rosendo Ponce MD without perforation or abscess without bleeding 06/11/2019 D72.829 Elevated white blood cell count, Allyn Key M.D. unspecified 06/11/2019 K56.7 Ileus, unspecified Allyn Key M.D. 06/11/2019 E03.9 Hypothyroidism, unspecified Allyn Key M.D. 06/11/2019 J45.909 Unspecified asthma, uncomplicated Allyn Key M.D. 06/11/2019 G47.33 Obstructive sleep apnea (adult) Allyn Key M.D. (pediatric) 06/10/2019 K57.32 Diverticulitis of large intestine Osorio Diaz PA-C without perforation or abscess without bleeding 06/09/2019 R10.9 Unspecified abdominal pain Luis A Coppola MD 06/09/2019 K57.32 Diverticulitis of large intestine LD Briceno without perforation or abscess without bleeding 06/09/2019 D72.829 Elevated white blood cell count, Luis A Coppola MD unspecified 06/08/2019 D72.829 Elevated white blood cell count, Erica Kelly NP unspecified 06/08/2019 K57.32 Diverticulitis of large intestine Riley Joe, PA-C without perforation or abscess without bleeding 06/08/2019 D47.3 Essential (hemorrhagic) Erica Surendra Kelly, [employer] thrombocythemia 06/07/2019 K57.32 Diverticulitis of large intestine Peyman Burrell MD without perforation or abscess without bleeding 06/05/2019 K57.32 Diverticulitis of large intestine Rosendo Ponce MD without perforation or abscess without bleeding 06/04/2019 J98.11 Atelectasis Rigoberto Hinojosa M.D. 06/04/2019 D72.829 Elevated white blood cell count, Romaine Varela M.D. unspecified 06/04/2019 D64.9 Anemia, unspecified Rigoberto Hinojosa M.D. 06/04/2019 K57.32 Diverticulitis of large intestine Osorio Diaz PA-C without perforation or abscess without bleeding 06/04/2019 E87.6 Hypokalemia Rigoberto Hinojosa M.D. 06/04/2019 E43 Unspecified severe protein-calorie Rigoberto Hinojosa M.D. malnutrition 06/03/2019 D72.829 Elevated white blood cell count, Rigoberto Hinojosa M.D. unspecified 06/03/2019 K57.32 Diverticulitis of large intestine Rosendo Ponce MD without perforation or abscess without bleeding 06/03/2019 R10.9 Unspecified abdominal pain Rigoberto Hinojosa M.D. 06/03/2019 D72.829 Elevated white blood cell count, Romaine Varela M.D. unspecified 06/02/2019 R94.31 Abnormal electrocardiogram [ECG] Niko Argueta M.D. [EKG] 06/02/2019 R10.9 Unspecified abdominal pain Rigoberto Hinojosa M.D. 06/02/2019 R94.31 Abnormal electrocardiogram [ECG] Niko Argueta M.D. [EKG] 06/02/2019 D72.829 Elevated white blood cell count, Rigoberto Hinojosa M.D. unspecified 06/02/2019 D72.829 Elevated white blood cell count, Romaine Varela M.D. unspecified 06/02/2019 K57.32 Diverticulitis of large intestine Osorio Diaz PA-C without perforation or abscess without bleeding 06/02/2019 K91.89 Other postprocedural complications Romaine Varela M.D. and disorders of digestive system 06/02/2019 K63.1 Perforation of intestine Osorio Diaz PA-C (nontraumatic) 06/01/2019 I45.81 Long QT syndrome Jorge Hinojosa, [facility] 06/01/2019 K57.32 Diverticulitis of large intestine Osorio Diaz PA-C without perforation or abscess without bleeding 06/01/2019 K63.1 Perforation of intestine Osorio Diaz PA-C (nontraumatic) 06/01/2019 K66.0 Peritoneal adhesions (postprocedural) LD Mendoza (postinfection) 05/31/2019 A41.9 Sepsis, unspecified organism Rigoberto Hinojosa M.D. 05/31/2019 K57.32 Diverticulitis of large intestine Jorge Luevano MD, FACS without perforation or abscess without bleeding 05/31/2019 E87.6 Hypokalemia Rigoberto Hinojosa M.D. 05/30/2019 A41.9 Sepsis, unspecified organism Rigoberto Hinojosa M.D. 05/30/2019 K56.7 Ileus, unspecified Rigoberto Hinojosa M.D. 05/30/2019 K57.32 Diverticulitis of large intestine Jorge Luevano MD, FACS without perforation or abscess without bleeding 05/30/2019 E87.6 Hypokalemia Rigoberto Hinojosa M.D. 05/29/2019 A41.9 Sepsis, unspecified organism Megan Martinez MD 05/29/2019 K56.7 Ileus, unspecified Megan Martinez MD 05/29/2019 K57.32 Diverticulitis of large intestine Osorio Diaz PA-C without perforation or abscess without bleeding 05/29/2019 E83.51 Hypocalcemia Megan Martinez MD 05/29/2019 K63.1 Perforation of intestine Rosendo Ponce MD (nontraumatic) 05/29/2019 K66.0 Peritoneal adhesions (postprocedural) LD Mendoza (postinfection) 05/28/2019 K57.32 Diverticulitis of large intestine Rosendo Ponce MD without perforation or abscess without bleeding 05/27/2019 K57.32 Diverticulitis of large intestine Rosendo Ponce MD without perforation or abscess without bleeding 05/26/2019 K57.32 Diverticulitis of large intestine Rosendo Ponce MD without perforation or abscess without bleeding 05/25/2019 K57.32 Diverticulitis of large intestine Rosendo Ponce MD without perforation or abscess without bleeding 05/25/2019 K66.0 Peritoneal adhesions (postprocedural) Rosendo Ponce MD (postinfection) 05/18/2019 K57.32 Diverticulitis of large intestine LD Briceno without perforation or abscess without bleeding 05/18/2019 Z01.818 Encounter for other preprocedural LD Briceno examination 04/07/2019 K57.32 Diverticulitis of large intestine Rosendo Ponce MD without perforation or abscess without bleeding 04/03/2019 Z01.811 Encounter for preprocedural Anila De La Cruz MD respiratory examination 04/03/2019 J45.909 Unspecified asthma, uncomplicated Anila De La Cruz MD 04/03/2019 G47.33 Obstructive sleep apnea (adult) Anila De La Cruz MD (pediatric) 04/02/2019 K57.32 Diverticulitis of large intestine Rosendo Ponce MD without perforation or abscess without bleeding 03/26/2019 K57.32 Diverticulitis of large intestine Kayla O'caity, [...] K57.32 Diverticulitis of large intestine Zandra Celis, [employer] without perforation or abscess without bleeding 03/23/2019 R11.0 Nausea Zandra Shortle, [employer] 03/23/2019 K57.30 Diverticulosis of large intestine Rosendo Ponce MD without perforation or abscess without bleeding 03/23/2019 E03.9 Hypothyroidism, unspecified Zandra Shortle, [employer] 03/22/2019 K57.32 Diverticulitis of large intestine Catia Jimenezckney, [employer] without perforation or abscess without bleeding 02/23/2019 J45.20 Mild intermittent asthma, Anila De La Cruz MD uncomplicated Plan of Treatment Future Appointment(s):07/08/2019 10:00 am - Rosendo Ponce MD at [facility]10/05/2019 9:00 am - Anila De La Cruz MD at [facility]06/30/2019 - Rosendo Ponce MDK57.32 Diverticulitis of large intestine without perforation or abscess without bleedingComments:Stable, minimal drainage, pull drain out a little bit today. She will follow up to see me in 2 dayscontinue with dressing changes and monitoring of output. Plan will be to advance diet once the drainage stops. It has been less than 20 cc a day Functional Status Description No Information Available Mental Status Description No Information Available Referrals Refer to Reason for Referral Status Appt Date Rosendo Ponce MD FOR 05/25/19 ---[id number]--- INPATIENT Created [address] [place] [address] [phone]
--- OUTSIDE RECORDS SUMMARY | 2019-07-14 17:33 | XMS REPORT | Continuity of Care Document ---
:1960 External Reference #:[id number] Author Name Rosendo Ponce MD (transmitted by agent of provider Roosevelt Nicole) Address [address] [place] [id number] Care Team Providers Name Role Phone [facility] - Care Team Information Country Printer Apprentice [phone] Rehabilitation Jimenez Martinez DO - Emergency Medicine Care Team Information Country Printer Apprentice [phone] Blake Stout MD - Care Team Information Country Printer Apprentice [phone] Otolaryngology Dori Wilburn NP - Family Care Team Information Country Printer Apprentice [phone] Problems Active Problems Provider Date Asthma without [...] days for 25 years Smoking Status Reviewed: 07/08/19 Patient is a former Quit in January [...] Date Provider Humidifier Pls provide pt J45.20 Count Includes [facility] 06/11/2017 2Gallon Misc with humidifoer MD Jono to be used at night Spiriva Respimat 2 puffs every day 4units Count Includes [facility] 06/11/2017 2.5mcg/Act MD Jono Aerosol Symbicort 2 puff twice a 20.7gm J45.909 Count Includes [facility] 12/27/2015 80-4.5mcg/Act Aerosol day as needed MD [...] Older Vital Signs Date Vital Result Comment 07/08/2019 9:28am Heart Rate 84 /min BP Systolic Sitting 110 mmHg BP Diastolic Sitting 74 mmHg Respiratory Rate 16 /min Body Temperature 97.3 F 07/07/2019 9:10am Weight 157.00 lb Heart Rate 80 /min Respiratory Rate 16 /min Body Temperature 98.6 F Results Test Acquired Date Facility Test Result H/L Range Note CBC Auto 07/06/2019 [facility] White Blood 10.5 10^3/uL Normal 3.5-10.[address] [place] [address] [phone] Red Blood Count 3.79 10^6/uL Normal 3.70-4.87 [...] Blood Cells % 0.0 Comp Metabolic 07/06/2019 [facility] Sodium 136 mmol/L Normal 135-[address] [place] [address] [phone] Potassium 4.3 mmol/L Normal 3.5-5.0 Chloride 107 [...] Egfr 165.9 >60 1 Laboratory test 07/06/2019 [facility] Phosphorus 3.9 mg/dL Normal 2.5-5.0 finding [address] [place] [address] [phone] Magnesium 2.0 mg/dL Normal 1.9-2.7 Comp Metabolic Panel 06/29/2019 [facility] Sodium 134 mmol/L Low 135-145 [address] [place] [address] [phone] Potassium 4.5 mmol/L Normal 3.5-5.0 Chloride 105 [...] Egfr 194.2 >60 2 Laboratory test 06/29/2019 [facility] Phosphorus 3.4 mg/dL Normal 2.5-5.0 finding [address] [place] [address] [phone] Magnesium 1.9 mg/dL Normal 1.9-2.7 CBC Auto 06/29/2019 [facility] White Blood 10.3 10^3/uL Normal 3.5-10.[address] [place] [address] [phone] Red Blood Count 3.61 10^6/uL Low 3.70-4.87 [...] Red Blood Cells % 0.0 Manual 06/29/2019 [facility] Immature 3.0 % Normal 0-[address] [place] [address] [phone] Neutrophil % 60.0 % Lymphocytes % 24.0 % Monocytes % 6.0 % Eosinophils % 3.0 % Basophil % 2.0 % Variant Lymph % 2.0 % Normal 0-6 Metamyelocytes % 1.0 % Normal 0-2 Myelocytes % 2.0 % High 0-1 RBC Morphology Normal Normal Anisocytosis 1+ CBC Auto 05/18/2019 [facility] White Blood 11.1 10^3/uL High 3.5-10.8 [address] [place] [address] [phone] Red Blood Count 4.95 10^6/uL High 3.70-4.87 [...] Blood Cells % 0.1 Comp Metabolic 05/18/2019 [facility] Sodium 137 mmol/L Normal 135-[address] [place] [address] [phone] Potassium 4.5 mmol/L Normal 3.5-5.0 Chloride 105 [...] dialysis) Procedures Date Code Description Status 06/02/2019 14567 ECHO Transthorasic Realtime 2D W Doppler & Color Flow Completed Hosp 05/25/2019 92918 Laparoscopy,Colectomy,Partial Completed W/Anastomsis,W/Coloproctostomy 05/25/2019 12572 Injection Intravenous To Test Blood Flow In Flap Or Completed Graft 03/24/2019 70004 EKG, Interpretation Only Completed 03/18/2019 66135079 Colonoscopy Completed 02/23/2019 75420 Diffusing Capacity Completed 02/23/2019 06530 Plethysmography Determination Lung Volumes & Per Airway Completed Resist 02/23/2019 00711 Pulmonary Function><Bronchodil Completed 02/24/2015 59130511 Colonoscopy Completed Medical Devices Description No Information Available Encounters Type Date Location Provider Dx Diagnosis Office Visit 06/11/2019 [facility] Allyn Key, D72.829 Elevated white 2:07p Assana [email or web address].[email or web address] blood cell count, Hospitalists unspecified K56.7 Ileus, unspecified E03.9 Hypothyroidism, unspecified J45.909 Unspecified asthma, uncomplicated G47.33 Obstructive sleep apnea (adult) (pediatric) Office Visit 06/09/2019 2:07p [facility] Luis A Coppola, R10.9 Unspecified Assocana MD abdominal pain Hospitalists D72.829 Elevated white blood cell count, unspecified Office Visit 06/08/2019 [facility] Erica Agosto D72.829 Elevated white 11:23a For Infectious NANDO Kelly blood cell Diseases count, unspecified D47.3 Essential (hemorrhagic) thrombocythemia Office Visit 06/04/2019 [facility] Gloria Gavin D72.829 Elevated white 11:56a Hugo Varela M.D. blood cell Diseases count, unspecified Office Visit 06/04/2019 [facility] Rigoberto Hinojosa, J98.11 Atelectasis 11:54a Olivia D64.9 Anemia, unspecified E87.6 Hypokalemia E43 Unspecified severe protein-calorie malnutrition Office Visit 06/03/2019 [facility] Gloria Gavin D72.829 Elevated white 11:54a Hugo Varela M.D. blood cell Diseases count, unspecified Office Visit 06/03/2019 [facility] Rigoberto Hinojosa D72.829 Elevated white 11:53a M.D. blood cell count, unspecified R10.9 Unspecified abdominal pain Office Visit 06/02/2019 [place] Niko Gavin R94.31 Abnormal 2:49p [facility] Of Olivia Argueta electrocardiogram [facility] [ECG] [EKG] Office Visit 06/02/2019 [facility] Romaine Leslye D72.829 Elevated white blood 11:52a For Infectious [place], cell count, Diseases M.D. 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 abdominal pain D72.829 Elevated white blood cell count, unspecified Office Visit 06/01/2019 11:29a [facility] Jorge Queen I45.81 Long QT syndrome [facility] DO Ashish FAC Office Visit 05/31/2019 11:53a [facility] Rigoberto Hinojosa A41.9 Sepsis, M.D. unspecified organism E87.6 Hypokalemia Office Visit 05/30/2019 11:52a [facility] Rigoberto Hinojosa, A41.9 Sepsis, unspecified M.D. organism K56.7 Ileus, unspecified E87.6 Hypokalemia Office Visit 05/29/2019 11:52a [facility] Megan Martinez A41.9 Christy , unspecified organism K56.7 Ileus, unspecified E83.51 Hypocalcemia Office Visit 04/03/2019 [facility] And Anila Z01.811 Encounter for 9:00a [facility] Services [facility] MD Jono preprocedural [facility] respiratory examination J45.909 Unspecified asthma, uncomplicated G47.33 Obstructive sleep apnea (adult) (pediatric) Office Visit 04/02/2019 10:30a Surgical Rosendo Dey K57.32 Dvtrcli of lg int [facility] MD Kris w/o perforation or abscess w/o bleeding Office Visit 03/26/2019 12:46p [facility] Kayla K57.32 Dvtrcli of lg int Assoc,pc BLESSING Guerra w/o perforation Hospitalists or abscess w/o bleeding Office Visit 03/25/2019 12:46p [facility] Kayla Morin7.32 Dvtrcli of lg int Assoc,pc LD Guerra-C w/o perforation Hospitalists or abscess w/o bleeding J45.909 Unspecified asthma, uncomplicated Office Visit 03/24/2019 [facility] Kayla K57.32 Dvtrcli of lg int 12:45p Assoc,pc LD Guerra-C w/o perforation Hospitalists or abscess w/o bleeding R07.9 Chest pain, unspecified J45.909 Unspecified asthma, uncomplicated Office Visit 03/24/2019 Surgical Rosendo Dey K57.30 Dvrtclos of lg 7:00a [facility] Ponce MD int w/o perforation or abscess w/o bleeding Office Visit 03/23/2019 [facility] K57.32 Dvtrcli of lg int 12:45p Assoc,pc Vimal, STEEL WHEEL ENGRAVER w/o perforation Hospitalists or abscess w/o bleeding R11.0 Nausea E03.9 Hypothyroidism, unspecified Office Visit 03/23/2019 7:00a Surgical Rosendo Dey K57.30 Dvrtclos of lg [facility] Ponce MD int w/o perforation or abscess w/o bleeding Office Visit 03/22/2019 12:45p [facility] Catia K57.32 Dvtrcli of lg int Assoc,ana Stoll, NANDO w/o perforation Hospitalists or abscess w/o bleeding Assessments Date Code Description Provider 07/07/2019 K57.32 Diverticulitis of large intestine Rosendo Ponce MD without perforation or abscess without bleeding 06/30/2019 K57.32 Diverticulitis of large intestine Rosendo [...] unspecified 06/08/2019 K57.32 Diverticulitis of large intestine Osorio Diaz PA-C without perforation or abscess without bleeding 06/08/2019 D47.3 Essential (hemorrhagic) Erica Surendra Kelly, NANDO thrombocythemia 06/07/2019 K57.32 Diverticulitis of large intestine [...] 06/01/2019 I45.81 Long QT syndrome Jorge Hinojosa, [facility] 06/01/2019 K57.32 Diverticulitis of large intestine [...] J45.909 Unspecified asthma, uncomplicated Anila De La rCuz MD 04/03/2019 G47.33 Obstructive sleep apnea (adult) Anila De La Cruz MD (pediatric) 04/02/2019 K57.32 Diverticulitis of large intestine Rosendo Ponce MD without perforation or abscess without bleeding 03/26/2019 K57.32 Diverticulitis of large intestine Kayla Guerra PA-C without perforation or abscess without bleeding 03/25/2019 K57.32 Diverticulitis of large intestine Kaylashala Guerra PA-C without perforation or abscess without bleeding 03/25/2019 J45.909 Unspecified asthma, uncomplicated Kayla Guerra PA-C 03/24/2019 R00.1 Bradycardia, unspecified Niko Argueta M.D. 03/24/2019 K57.32 Diverticulitis of large intestine LD Kang-C without perforation or abscess without bleeding 03/24/2019 R07.9 Chest pain, unspecified Kayla Guerra PA-C 03/24/2019 J45.909 Unspecified asthma, uncomplicated Kayla Guerra, BLESSING 03/24/2019 K57.30 Diverticulosis of large intestine Rosendo Ponce MD without perforation or abscess without bleeding 03/23/2019 K57.32 Diverticulitis of large intestine Zandra Shortle, [employer] ENG[employer]VER without perforation or abscess without bleeding 03/23/2019 R11.0 Nausea Zandra Shortle, STEEL WHEEL ENGRAVER 03/23/2019 K57.30 Diverticulosis of large intestine Rosendo Ponce MD without perforation or abscess without bleeding 03/23/2019 E03.9 Hypothyroidism, unspecified Zandra Shortle, STEEL WHEEL ENGRAVER 03/22/2019 K57.32 Diverticulitis of large intestine Catia Stoll, STEEL WHEEL ENGRAVER without perforation or abscess without bleeding 02/23/2019 J45.20 Mild intermittent asthma, Anila De La Cruz MD uncomplicated Plan of Treatment Future Appointment(s):07/09/2019 1:30 pm - Rosendo Ponce MD at [facility]10/05/2019 9:00 am - Anila De La Cruz MD at [facility]07/07/2019 - Rosendo Ponce MDK57.32 Diverticulitis of large intestine without perforation or abscess without bleedingComments:Doing well, and in a great mood today. She has had no abdominal pain no drainage or problems over the weekend since . She would like to try clears which I think is reasonable and she will call with any problems in the meantime. I will see her in follow-up tomorrow to see how the clears aregoing she understands to stop with any drainage or issues or pain. Functional Status Description No Information Available Mental Status Description No Information Available Referrals Refer to Reason for Referral Status Appt Date Rosendo Ponce MD FOR 05/25/19 ---76424--- INPATIENT Created [address] [place] [address] [phone]
--- OUTSIDE RECORDS SUMMARY | 2019-07-14 17:33 | XMS REPORT | Continuity of Care Document ---
:1960 External Reference #:[id number] Author Name Rosendo Ponce MD (transmitted by agent of provider Roosevelt Nicole) Address [address] [place] [phone] Care Team Providers Name Role Phone [facility] - Care Team Information Manager Supply Chain Planning [phone] Rehabilitation Jimenez Martinez DO - Emergency Medicine Care Team Information Manager Supply Chain Planning Blake Stout MD - Care Team Information Manager Supply Chain Planning [phone] Otolaryngology Dori Wilburn NP - Family Care Team Information Manager Supply Chain Planning [phone] Problems Active Problems Provider Date Asthma without [...] days for 25 years Smoking Status Reviewed: 07/09/19 Patient is a former Quit in January [...] Date Provider Humidifier Pls provide pt J45.20 [facility] 2Gallon Misc with humidifoer MD Jono to be used at night Spiriva Respimat 2 puffs every day 4units [facility] 06/11/2017 2.5mcg/Act MD Jono Aerosol Symbicort 2 puff twice a 20.7gm J45.909 [facility] 12/27/2015 80-4.5mcg/Act Aerosol day as needed [...] Older Vital Signs Date Vital Result Comment 07/09/2019 1:28pm Heart Rate 84 /min Respiratory Rate 16 /min Body Temperature 99.0 F 07/08/2019 9:28am Heart Rate 84 /min BP Systolic Sitting 110 mmHg BP Diastolic Sitting 74 mmHg Respiratory Rate 16 /min Body Temperature 97.3 F Results Test Acquired Date Facility Test Result H/L Range Note CBC Auto 07/06/2019 [facility] White Blood 10.5 10^3/uL Normal 3.5-10.[address] [place] [address] [phone] Red Blood Count 3.79 10^6/uL Normal 3.70-4.87 [...] Blood Cells % 0.0 Comp Metabolic 07/06/2019 [facility] Sodium 136 mmol/L Normal 135-[address] [place] [address] [phone] Potassium 4.3 mmol/L Normal 3.5-5.0 Chloride 107 [...] Egfr 165.9 >60 1 Laboratory test 07/06/2019 [facility] Phosphorus 3.9 mg/dL Normal 2.5-5.[address] [place] [address] [phone] Magnesium 2.0 mg/dL Normal 1.9-2.7 Comp Metabolic Panel 06/29/2019 [facility] Sodium 134 mmol/L Low 135-[address] [place] [address] [phone] Potassium 4.5 mmol/L Normal 3.5-5.0 Chloride 105 [...] Egfr 194.2 >60 2 Laboratory test 06/29/2019 [facility] Phosphorus 3.4 mg/dL Normal 2.5-5.0 finding [address] [place] [address] [phone] Magnesium 1.9 mg/dL Normal 1.9-2.7 CBC Auto 06/29/2019 [facility] White Blood 10.3 10^3/uL Normal 3.5-10.[address] [place] [address] [phone] Red Blood Count 3.61 10^6/uL Low 3.70-4.87 [...] Red Blood Cells % 0.0 Manual 06/29/2019 [facility] Immature 3.0 % Normal 0-[address] [place] [address] [phone] Neutrophil % 60.0 % Lymphocytes % 24.0 % Monocytes % 6.0 % Eosinophils % 3.0 % Basophil % 2.0 % Variant Lymph % 2.0 % Normal 0-6 Metamyelocytes % 1.0 % Normal 0-2 Myelocytes % 2.0 % High 0-1 RBC Morphology Normal Normal Anisocytosis 1+ CBC Auto 05/18/2019 [facility] White Blood 11.1 10^3/uL High 3.5-10.8 [address] [place] [address] [phone] Red Blood Count 4.95 10^6/uL High 3.70-4.87 [...] Blood Cells % 0.1 Comp Metabolic 05/18/2019 [facility] Sodium 137 mmol/L Normal 135-[address] [place] [address] [phone] Potassium 4.5 mmol/L Normal 3.5-5.0 Chloride 105 [...] dialysis) Procedures Date Code Description Status 06/02/2019 67986 ECHO Transthorasic Realtime 2D W Doppler & Color Flow Completed Hosp 05/25/2019 74563 Laparoscopy,Colectomy,Partial Completed W/Anastomsis,W/Coloproctostomy 05/25/2019 52300 Injection Intravenous To Test Blood Flow In Flap Or Completed Graft 03/24/2019 39255 EKG, Interpretation Only Completed 03/18/2019 62202817 Colonoscopy Completed 02/23/2019 49403 Diffusing Capacity Completed 02/23/2019 19794 Plethysmography Determination Lung Volumes & Per Airway Completed Resist 02/23/2019 55835 Pulmonary Function><Bronchodil Completed 02/24/2015 50665732 Colonoscopy Completed Medical Devices Description No Information Available Encounters Type Date Location Provider Dx Diagnosis Office Visit 06/11/2019 [facility] Allyn Key, D72.829 Elevated white 2:07p Assoc,ana aBker blood cell count, Hospitalists unspecified K56.7 Ileus, unspecified E03.9 Hypothyroidism, unspecified J45.909 Unspecified asthma, uncomplicated G47.33 Obstructive sleep apnea (adult) (pediatric) Office Visit 06/09/2019 2:07p [facility] Luis A Coppola, R10.9 Unspecified Assocana MD abdominal pain Hospitalists D72.829 Elevated white blood cell count, unspecified Office Visit 06/08/2019 [facility] Erica Agosto D72.829 Elevated white 11:23a For Hugo Kelly NP blood cell Diseases count, unspecified D47.3 Essential (hemorrhagic) thrombocythemia Office Visit 06/04/2019 [facility] Gloria Gavin D72.829 Elevated white 11:56a Hugo Varela M.D. blood cell Diseases count, unspecified Office Visit 06/04/2019 [facility] Rigoberto Hinojosa, J98.11 Atelectasis 11:54a Olivia D64.9 Anemia, unspecified E87.6 Hypokalemia E43 Unspecified severe protein-calorie malnutrition Office Visit 06/03/2019 [facility] Gloria Gavin D72.829 Elevated white 11:54a Hugo Varela M.D. blood cell Diseases count, unspecified Office Visit 06/03/2019 [facility] Rigoberto Hinojosa D72.829 Elevated white 11:53a MTono blood cell count, unspecified R10.9 Unspecified abdominal pain Office Visit 06/02/2019 [place] Niko Gavin R94.31 Abnormal 2:49p Cardiology Of Olivia Argueta electrocardiogram [facility] [ECG] [EKG] Office Visit 06/02/2019 [facility] Romaine Leslye D72.829 Elevated white blood 11:52a For Infectious [place], cell count, Diseases M.D. 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 abdominal pain D72.829 Elevated white blood cell count, unspecified Office Visit 06/01/2019 11:29a [place] [facility] Jorge Queen I45.81 Long QT syndrome [facility] DO Ashish FAC Office Visit 05/31/2019 11:53a [...] 9:00a [facility] Services Of MD Jono preprocedural [facility] respiratory examination J45.909 Unspecified asthma, uncomplicated G47.33 Obstructive sleep apnea (adult) (pediatric) Office Visit 04/02/2019 10:30a Surgical Rosendo Dey K57.32 Dvtrcli of lg int [facility] MD Kris w/o perforation or abscess w/o bleeding Office Visit 03/26/2019 12:46p [facility] Kayla K57.32 Dvtrcli of lg int Assoc,ana Guerra PA-C w/o perforation Hospitalists or abscess w/o bleeding Office Visit 03/25/2019 12:46p [facility] Kayla K57.32 Dvtrcli of lg int Assoc,pc [place], PA-C w/o perforation Hospitalists or abscess w/o bleeding J45.909 Unspecified asthma, uncomplicated Office Visit 03/24/2019 [facility] Kayla K57.32 Dvtrcli of lg int 12:45p Assoc,ana Guerra PA-C w/o perforation Hospitalists or abscess w/o bleeding R07.9 Chest pain, unspecified J45.909 Unspecified asthma, uncomplicated Office Visit 03/24/2019 Surgical Rosendo Dey K57.30 Dvrtclos of lg 7:00a [facility] oPnce MD int w/o perforation or abscess w/o bleeding Office Visit 03/23/2019 [facility] K57.32 Dvtrcli of lg int 12:45p Assoc,pc Vimal, CHIEF PILOT w/o perforation Hospitalists or abscess w/o bleeding R11.0 Nausea E03.9 Hypothyroidism, unspecified Office Visit 03/23/2019 7:00a Surgical Rosendo Dey K57.30 Dvrtclos of lg [facility] Ponce MD int w/o perforation or abscess w/o bleeding Office Visit 03/22/2019 12:45p [facility] Catia K57.32 Dvtrcli of lg int Assoc,ana Stoll NP w/o perforation Hospitalists or abscess w/o bleeding [...] 06/08/2019 D47.3 Essential (hemorrhagic) Erica Surendra Kelly, CHIEF PILOT thrombocythemia 06/07/2019 K57.32 Diverticulitis of large intestine [...] 06/01/2019 I45.81 Long QT syndrome Jorge Hinojosa, [facility] 06/01/2019 K57.32 Diverticulitis of large intestine Osorio [...] 03/26/2019 K57.32 Diverticulitis of large intestine Kayla O'caity PA-C without perforation or abscess without bleeding [...] K57.32 Diverticulitis of large intestine Zandra Shortle, CHIE[employer] PILOT without perforation or abscess without bleeding 03/23/2019 R11.0 Nausea Zandra Shortle, CHIE[employer] P[employer]OT 03/23/2019 K57.30 Diverticulosis of large intestine Rosendo Ponce MD without perforation or abscess without bleeding 03/23/2019 E03.9 Hypothyroidism, unspecified Zandra Shortle, [employer]OT 03/22/2019 K57.32 Diverticulitis of large intestine Catia Stoll, CHIEF PILOT without perforation or abscess without bleeding 02/23/2019 J45.20 Mild intermittent asthma, Anila De La Cruz MD uncomplicated Plan of Treatment Future Appointment(s):07/16/2019 2:15 pm - Rosendo Ponce MD at [facility]10/05/2019 9:00 am - Anila De La Cruz MD at [facility]07/07/2019 - Rosendo Ponce MDK57.32 Diverticulitis of large [...] Appt Date Rosendo Ponce MD FOR 05/25/19 ---07240--- INPATIENT Created [address] [place] [address] [phone]
--- OUTSIDE RECORDS SUMMARY | 2019-07-14 17:34 | XMS REPORT | Continuity of Care Document ---
:1960 External Reference #:[id number] Author Name Geri Gamboa MD (transmitted by agent of provider Roosevelt Nicole) Address [address] [place] [address] Care Team Providers Name Role Phone [facility] - Care Team Information Manufacturing Operator [phone] Rehabilitation Jimenez Martinez DO - Emergency Medicine Care Team Information Manufacturing Operator [phone] Blake Stout MD - Care Team Information Manufacturing Operator [phone] Otolaryngology Dori Wilburn NP - Family Care Team Information Manufacturing Operator [phone] Problems Active Problems Provider Date Asthma without [...] days for 25 years Smoking Status Reviewed: 07/02/19 Patient is a former Quit in January [...] Flagyl 1 tab by mouth at 3tabs Lani Piña 05/18/2019 500mg Tablets 1:00 pm, 2:00 pm MD Dejuan and 11:00 pm the day before surgery Humidifier Pls provide pt J45.20 [facility] 06/11/2017 2Gallon Misc with humidifoer MD Jono to be used at night Spiriva Respimat 2 puffs every day 4units [facility] 06/11/2017 2.5mcg/Act MD Jono Aerosol Symbicort 2 puff twice a 20.7gm J45.909 [facility] 12/27/2015 80-4.5mcg/Act Aerosol day as needed MD Jono Levothyroxine Sodium 1 by mouth every Unknown 75mcg day Tablets Ibuprofen 200 1 twice a day as Unknown 200mg Tablets needed Cpap at night Unknown Methylprednisolone FPD Unknown 4mg TBPK Tramadol HCL 1-2 tablets by Unknown 50mg Tablets mouth every 6 hours as needed pain History Medications Neomycin Sulfate 2 tabs by mouth at [...] Older Vital Signs Date Vital Result Comment 07/02/2019 1:51pm Heart Rate 76 /min BP Systolic 120 mmHg BP Diastolic 78 mmHg Respiratory Rate 18 /min Body Temperature 98.1 F 06/30/2019 9:11am Heart Rate 88 /min BP Systolic 122 mmHg BP Diastolic 70 mmHg Respiratory Rate 18 /min Body Temperature 98.5 F Results Test Acquired Date Facility Test Result H/L Range Note Comp Metabolic 06/29/2019 [facility] Sodium 134 mmol/L Low 135 -[address] [place] [address] [phone] Potassium 4.5 mmol/L Normal 3.5-5.0 Chloride 105 [...] Egfr Non- 160.5 >60 Egfr 194.2 >60 1 Laboratory test 06/29/2019 [facility] Phosphorus 3.4 mg/dL Normal 2.5-5.[address] [place] [address] [phone] Magnesium 1.9 mg/dL Normal 1.9-2.7 CBC Auto 06/29/2019 [facility] White Blood 10.3 10^3/uL Normal 3.5-10.[address] [place] [address] [phone] Red Blood Count 3.61 10^6/uL Low 3.70-4.87 [...] Red Blood Cells % 0.0 Manual 06/29/2019 [facility] Immature 3.0 % Normal 0-[address] [place] [address] [phone] Neutrophil % 60.0 % Lymphocytes % 24.0 % Monocytes % 6.0 % Eosinophils % 3.0 % Basophil % 2.0 % Variant Lymph % 2.0 % Normal 0-6 Metamyelocytes % 1.0 % Normal 0-2 Myelocytes % 2.0 % High 0-1 RBC Morphology Normal Normal Anisocytosis 1+ CBC Auto 05/18/2019 [facility] White Blood 11.1 10^3/uL High 3.5-10.[address] [place] [address] [phone] Red Blood Count 4.95 10^6/uL High 3.70-4.87 [...] Blood Cells % 0.1 Comp Metabolic 05/18/2019 [facility] Sodium 137 mmol/L Normal 135-[address] [place] [address] [phone] Potassium 4.5 mmol/L Normal 3.5-5.0 Chloride 105 [...] Egfr Non- 88.0 >60 Egfr 106.5 >60 3 1 Because ethnic data is not always [...] 5 Kidney failure <15 (or dialysis) 2 AA 05/25 3 Because ethnic data is not always readily [...] dialysis) Procedures Date Code Description Status 06/02/2019 11733 ECHO Transthorasic Realtime 2D W Doppler & Color Flow Completed Hosp 05/25/2019 19870 Laparoscopy,Colectomy,Partial Completed W/Anastomsis,W/Coloproctostomy 05/25/2019 58485 Injection Intravenous To Test Blood Flow In Flap Or Completed Graft 03/24/2019 29278 EKG, Interpretation Only Completed 03/18/2019 13693409 Colonoscopy Completed 02/23/2019 58726 Diffusing Capacity Completed 02/23/2019 74110 Plethysmography Determination Lung Volumes & Per Airway Completed Resist 02/23/2019 61405 Pulmonary Function><Bronchodil Completed 02/24/2015 [id number] Colonoscopy Completed Medical Devices Description No Information Available Encounters Type Date Location Provider Dx Diagnosis Office Visit 06/11/2019 [facility] Allyn Key, D72.829 Elevated white 2:07p ana Herrera M.D. blood cell count, Hospitalists unspecified K56.7 Ileus, unspecified E03.9 Hypothyroidism, unspecified J45.909 Unspecified asthma, uncomplicated G47.33 Obstructive sleep apnea (adult) (pediatric) Office Visit 06/09/2019 2:07p [facility] Luis A Coppola, R10.9 Unspecified ana Herrera MD abdominal pain Hospitalists D72.829 Elevated white blood cell count, unspecified Office Visit 06/08/2019 [facility] Erica Agosto D72.829 Elevated white 11:23a For Infectious Kelly, ADULT CROSSING GUARD blood cell Diseases count, unspecified D47.3 Essential (hemorrhagic) thrombocythemia Office Visit 06/04/2019 [facility] Gloria Gavin D72.829 Elevated white 11:56a Hugo Varela M.D. blood cell Diseases count, unspecified Office Visit 06/04/2019 [facility] Rigoberto Hinojosa, J98.11 Atelectasis 11:54a M.D. D64.9 Anemia, unspecified E87.6 Hypokalemia E43 Unspecified severe protein-calorie malnutrition Office Visit 06/03/2019 [facility] Romaine Gavin D72.829 Elevated white 11:54a Hugo Varela M.D. blood cell Diseases count, unspecified Office Visit 06/03/2019 [facility] Rigoberto Hinojosa, D72.829 Elevated white 11:53a M.DKeith blood cell count, unspecified R10.9 Unspecified abdominal pain Office Visit 06/02/2019 Robert Gavin R94.31 Abnormal 2:49p [facility] Olivia Argueta electrocardiogram [facility] [ECG] [EKG] Office Visit 06/02/2019 [facility] Romaine Gavin D72.829 Elevated white blood 11:52a For Infectious Avery, cell count, Diseases M.D. 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 abdominal pain D72.829 Elevated white blood cell count, unspecified Office Visit 06/01/2019 11:29a [facility] Jorge Queen I45.[address] [facility] DO Ashish FAC Office Visit 05/31/2019 11:53a [facility] Rigoberto Hinojosa A41.9 Sepsis, M.D. unspecified organism E87.6 Hypokalemia Office Visit 05/30/2019 11:52a [facility] Rigoberto Hinojosa A41.9 Sepsis, unspecified M.D. organism K56.7 Ileus, unspecified E87.6 Hypokalemia Office Visit 05/29/2019 11:52a [facility] Tricia Cardoza1.9 Sepsis , unspecified organism K56.7 Ileus, unspecified E83.51 Hypocalcemia Office Visit 04/03/2019 Pulmonology And Anila Z01.811 Encounter for 9:00a Sleep Services Of MD Jono preprocedural [facility] respiratory examination J45.909 Unspecified asthma, uncomplicated G47.33 Obstructive sleep apnea (adult) (pediatric) Office Visit 04/02/2019 10:30a Surgical Rosendo Dey K57.32 [facility]trcli of lg int [facility]der Ponce MD w/o perforation or abscess w/o bleeding Office Visit 03/26/2019 12:46p [facility] K57.32 Dvtrcli of lg int Assoc,pc O'caity, PA-C w/o perforation Hospitalists or abscess w/o bleeding Office Visit 03/25/2019 12:46p [facility] Kayla K57.32 Dvtrcli of lg int Assoc,pc O'caity, PA-C w/o perforation Hospitalists or abscess w/o bleeding J45.909 Unspecified asthma, uncomplicated Office Visit 03/24/2019 [facility] Kayla K57.32 D[facility]trcli of lg int 12:45p Assoc,pc O'caity, PA-C w/o perforation Hospitalists or abscess w/o bleeding R07.9 Chest pain, unspecified J45.909 Unspecified asthma, uncomplicated Office Visit 03/24/2019 Vj Dey K57.30 Dvrtclos of lg 7:00a [facility] MD int w/o perforation or abscess w/o bleeding Office Visit 03/23/2019 [facility] K57.32 Dvtrcli of lg int 12:45p Assoc,pc Vimal, ADULT CROSSING GUARD w/o perforation Hospitalists or abscess w/o bleeding R11.0 Nausea E03.9 Hypothyroidism, unspecified Office Visit 03/23/2019 7:00a Surgical Rosendo Dey K57.30 [facility] of lg [facility] MD int w/o perforation or abscess w/o bleeding Office Visit 03/22/2019 12:45p [facility] Catia K57.32 Dvtrcli of lg int Assoc,pc Jerman ADULT CROSSING GUARD w/o perforation Hospitalists or abscess w/o bleeding [...] 06/15/2019 K57.32 Diverticulitis of large intestine Osorio Diza PA-C without perforation or abscess without bleeding [...] without bleeding 06/08/2019 D47.3 Essential (hemorrhagic) Erica Kelly, NANDO thrombocythemia 06/07/2019 K57.32 Diverticulitis of [...] 06/01/2019 I45.81 Long QT syndrome Jorge Hinojosa, [facility] 06/01/2019 K57.32 Diverticulitis of large [...] bleeding 05/18/2019 Z01.818 Encounter for other preprocedural Raul Fabian PA examination 04/07/2019 K57.32 Diverticulitis of large intestine [...] K57.32 Diverticulitis of large intestine Zandra Shortle, ADULT CROSSING GUARD without perforation or abscess without bleeding 03/23/2019 R11.0 Nausea Zandra Shortle, ADULT CROSSING GUARD 03/23/2019 K57.30 Diverticulosis of large intestine Rosendo Ponce MD without perforation or abscess without bleeding 03/23/2019 E03.9 Hypothyroidism, unspecified Zandra Shortle, ADULT CROSSING GUARD 03/22/2019 K57.32 Diverticulitis of large intestine Catiajuanito Stoll, ADULT CROSSING GUARD without perforation or abscess without bleeding 02/23/2019 J45.20 Mild intermittent asthma, Anila De La Cruz MD uncomplicated Plan of Treatment Future Appointment(s):07/07/2019 9:00 am - Rosendo Ponce MD at [facility]07/17/2019 2:20 pm - Jorge Hinojosa DO [facility] at [place] [facility]10/05/2019 9:00 am - Anila De La Cruz MD at [facility]06/30/2019 - Rosendo Ponce MDK57.32 Diverticulitis of large [...] Appt Date Rosendo Ponce MD FOR 05/25/19 ---[id number]--- INPATIENT Created [employer] [place] [address] [phone]
--- OUTSIDE RECORDS SUMMARY | 2019-07-14 17:34 | XMS REPORT | Continuity of Care Document ---
:1960 External Reference #:[id number] Author Name Rosendo Ponce MD (transmitted by agent of provider Roosevelt Nicole) Address [address] [place] [address] Care Team Providers Name Role Phone [facility] - Care Team Information Chocolate Ref[employer] Roller [phone] Rehabilitation Jimenez Martinez DO - Emergency Medicine Care Team Information [employer] Rol[employer] Blake Stout MD - Care Team Information [employer] Rol[employer] [phone] Otolaryngology Dori Wilburn NP - Family Care Team Information [employer] Roller [phone] Problems Active Problems Provider Date Asthma without [...] days for 25 years Smoking Status Reviewed: 06/30/19 Patient is a former Quit in January [...] before surgery Humidifier Pls provide pt J45.20 [facility] 06/11/2017 2Gallon Misc with humidifoer MD Jono to be used at night Spiriva Respimat 2 puffs every day 4units [facility] 06/11/2017 2.5mcg/Act MD Jono Aerosol Symbicort 2 puff twice a 20.7gm J45.909 [facility] 12/27/2015 80-4.5mcg/Act Aerosol day as needed MD [...] Older Vital Signs Date Vital Result Comment 06/30/2019 9:11am Heart Rate 88 /min BP Systolic 122 mmHg BP Diastolic 70 mmHg Respiratory Rate 18 /min Body Temperature 98.5 F 05/18/2019 10:29am Height 63 inches 5'3" Weight 170.00 lb Heart Rate 60 /min BP Systolic Sitting 118 mmHg BP Diastolic Sitting 64 mmHg Respiratory Rate 12 /min Body Temperature 97.7 F BMI (Body Mass Index) 30.1 kg/m2 Results Test Acquired Date Facility Test Result H/L Range Note Comp Metabolic 06/29/2019 [facility] Sodium 134 mmol/L Low 135 -[address] [place] [address] [phone] Potassium 4.5 mmol/L Normal 3.5-5.0 Chloride 105 [...] Egfr 194.2 >60 1 Laboratory test 06/29/2019 [facility] Phosphorus 3.4 mg/dL Normal 2.5-5.[address] [place] [address] [phone] Magnesium 1.9 mg/dL Normal 1.9-2.7 CBC Auto 06/29/2019 [facility] White Blood 10.3 10^3/uL Normal 3.5-10.[address] [place] [address] [phone] Red Blood Count 3.61 10^6/uL Low 3.70-4.87 [...] Red Blood Cells % 0.0 Manual 06/29/2019 [facility] Immature 3.0 % Normal 0-[address] [place] [address] [phone] Neutrophil % 60.0 % Lymphocytes % 24.0 % Monocytes % 6.0 % Eosinophils % 3.0 % Basophil % 2.0 % Variant Lymph % 2.0 % Normal 0-6 Metamyelocytes % 1.0 % Normal 0-2 Myelocytes % 2.0 % High 0-1 RBC Morphology Normal Normal Anisocytosis 1+ CBC Auto 05/18/2019 [facility] White Blood 11.1 10^3/uL High 3.5-10.8 [address] [place] [address] [phone] Red Blood Count 4.95 10^6/uL High 3.70-4.87 [...] Blood Cells % 0.1 Comp Metabolic 05/18/2019 [facility] Sodium 137 mmol/L Normal 135-[address] [place] [address] [phone] Potassium 4.5 mmol/L Normal 3.5-5.0 Chloride 105 [...] dialysis) Procedures Date Code Description Status 06/02/2019 41932 ECHO Transthorasic Realtime 2D W Doppler & Color Flow Completed Hosp 05/25/2019 04367 Laparoscopy,Colectomy,Partial Completed W/Anastomsis,W/Coloproctostomy 05/25/2019 26993 Injection Intravenous To Test Blood Flow In Flap Or Completed Graft 03/24/2019 35758 EKG, Interpretation Only Completed 03/18/2019 [id number] Colonoscopy Completed 02/23/2019 86001 Diffusing Capacity Completed 02/23/2019 21528 Plethysmography Determination Lung Volumes & Per Airway Completed Resist 02/23/2019 22596 Pulmonary Function><Bronchodil Completed 02/24/2015 [id number] Colonoscopy Completed Medical Devices Description No Information Available Encounters Type Date Location Provider Dx Diagnosis Office Visit 06/11/2019 [facility] Allyn Key, D72.829 Elevated white 2:07p ana Herrera M.D. blood cell count, Hospitalists unspecified K56.7 Ileus, unspecified E03.9 Hypothyroidism, unspecified J45.909 Unspecified asthma, uncomplicated G47.33 Obstructive sleep apnea (adult) (pediatric) Office Visit 06/09/2019 2:07p [facility] Luis A Coppola, R10.9 Unspecified ana Herrera MD abdominal pain Hospitalists D72.829 Elevated white blood cell count, unspecified Office Visit 06/04/2019 [facility] Romaine Gavin D72.829 Elevated white 11:56a Hugo Varela M.D. blood cell Diseases count, unspecified Office Visit 06/04/2019 [facility] Rigoberto Hinojosa, J98.11 Atelectasis 11:54a M.D. D64.9 Anemia, unspecified E87.6 Hypokalemia E43 Unspecified severe protein-calorie malnutrition Office Visit 06/03/2019 [facility] Gloria Gavin D72.829 Elevated white 11:54a Hugo Varela M.D. blood cell Diseases count, unspecified Office Visit 06/03/2019 [facility] Rigoberto Hinojosa, D72.829 Elevated white 11:53a M.D. blood cell count, unspecified R10.9 Unspecified abdominal pain Office Visit 06/02/2019 [facility] Romaine Gavin D72.829 Elevated white 11:52a For Hugo Varela M.D. blood cell count, Diseases unspecified K91.89 Oth postprocedural complications and disorders of dgstv sys Office Visit 06/02/2019 11:53a [facility] Rigoberto Hinojosa, R10.9 Unspecified M.D. abdominal pain D72.829 Elevated white blood cell count, unspecified Office Visit 06/01/2019 11:29a [facility] Jorge Queen I45.81 Long QT syndrome Of [facility] DO Ashish FAC Office Visit 05/31/2019 11:53a [facility] Rigoberto Hinojosa A41.9 Sepsis, M.D. unspecified organism E87.6 Hypokalemia Office Visit 05/30/2019 11:52a [facility] Rigoberto Hinojosa A41.9 Sepsis, unspecified M.D. organism K56.7 Ileus, unspecified E87.6 Hypokalemia Office Visit 05/29/2019 11:52a [facility] Tricia Cardoza1.9 MD Christy unspecified organism K56.7 Ileus, unspecified E83.51 Hypocalcemia Office Visit 04/03/2019 Pulmonology And Anila Z01.811 Encounter for 9:00a Sleep Services Of MD Jono preprocedural [facility] respiratory examination J45.909 Unspecified asthma, uncomplicated G47.33 Obstructive sleep apnea (adult) (pediatric) Office Visit 04/02/2019 10:30a Surgical Rosendo Dey K57.32 [facility]vtrcli of lg int [facility] MD w/o perforation or abscess w/o bleeding [facility]vtr[facility] lg int Assoc,pc O'caity, PA-C w/o perforation Hospitalists or abscess w/o bleeding Office Visit 03/25/2019 12:46p [facility] Kayla K57.32 Dvtrcli of lg int Assoc,pc O'caity, PA-C w/o perforation Hospitalists or abscess w/o bleeding J45.909 Unspecified asthma, uncomplicated Office Visit 03/24/2019 [facility] K57.32 Dvtrcli of lg int 12:45p Assoc,pc O'caity, PA-C w/o perforation Hospitalists or abscess w/o bleeding R07.9 Chest pain, unspecified J45.909 Unspecified asthma, uncomplicated Office Visit 03/24/2019 Surgical Rosendo Dey K57.30 [facility]rt[facility] of lg 7:00a [facility] Ponce MD int w/o perforation or abscess w/o bleeding Office Visit 03/23/2019 [facility] K57.32 Dvtrcli of lg int 12:45p Assoc,pc Vimal MOTORBIKE COURIER w/o perforation Hospitalists or abscess w/o bleeding R11.0 Nausea E03.9 Hypothyroidism, unspecified Office Visit 03/23/2019 7:00a Surgical Rosendo Dey K57.30 [facility]once MD int w/o perforation or abscess w/o bleeding Office Visit 03/22/2019 12:45p [facility] K57.32 Dvtrcli of lg int Assoc,ana Stoll MOTORBIKE COURIER w/o perforation Hospitalists or abscess w/o bleeding Assessments Date Code Description Provider 06/22/2019 K57.32 Diverticulitis of large intestine Rosendo [...] count, Luis A Coppola MD unspecified 06/08/2019 K57.32 Diverticulitis of large intestine Osorio Diaz PA-C without perforation or abscess without bleeding 06/07/2019 K57.32 Diverticulitis of large intestine Peyman [...] M.D. unspecified 06/02/2019 R94.31 Abnormal electrocardiogram [ECG] [EKG] Niko Argueta M.D. 06/02/2019 R10.9 Unspecified abdominal pain Rigoberto Hinojosa M.D. 06/02/2019 R94.31 Abnormal electrocardiogram [ECG] [EKG] Niko Argueta M.D. 06/02/2019 D72.829 Elevated white blood cell count, Rigoberto Hinojosa M.D. unspecified 06/02/2019 D72.829 Elevated white blood cell count, Romaine Varela M.D. unspecified 06/02/2019 K57.32 Diverticulitis of large intestine Osorio Diaz PA-C without perforation or abscess without bleeding 06/02/2019 K91.89 Other postprocedural complications and Romaine Varela M.D. disorders of digestive system 06/02/2019 K63.1 Perforation of intestine (nontraumatic) Osorio Diaz PA-C 06/01/2019 I45.81 Long QT syndrome Jorge Hinojosa, [facility] 06/01/2019 K57.32 Diverticulitis of large intestine Osorio Diaz PA-C without perforation or abscess without bleeding 06/01/2019 K63.1 Perforation of intestine (nontraumatic) Osorio Diaz PA-C 06/01/2019 K66.0 Peritoneal adhesions (postprocedural) LD Mendoza [...] Martinez MD 05/29/2019 K63.1 Perforation of intestine (nontraumatic) Rosendo Ponce MD 05/29/2019 K66.0 Peritoneal adhesions (postprocedural) LD Mendoza [...] 03/26/2019 K57.32 Diverticulitis of large intestine Kayla Mis'caity, PA-C without perforation or abscess without bleeding [...] PA-C 03/24/2019 J45.909 Unspecified asthma, uncomplicated Kayla Guerra PA-C 03/24/2019 K57.30 Diverticulosis of large intestine Rosendo Ponce MD without perforation or abscess without bleeding 03/23/2019 K57.32 Diverticulitis of large intestine Zandra Celis, MOTORBIKE COURIER without perforation or abscess without bleeding 03/23/2019 R11.0 Nausea Zandra Shortle, MOTORBIKE COURIER 03/23/2019 K57.30 Diverticulosis of large intestine Rosendo Ponce MD without perforation or abscess without bleeding 03/23/2019 E03.9 Hypothyroidism, unspecified Zandra Shortle, MOTORBIKE COURIER 03/22/2019 K57.32 Diverticulitis of large intestine Catia Stoll, MOTORBIKE COURIER without perforation or abscess without bleeding 02/23/2019 J45.20 Mild intermittent asthma, uncomplicated Anila De La Cruz MD Plan of Treatment Future Appointment(s):10/05/2019 9:00 am - Anila De La Cruz MD at [facility]05/18/2019 - Raul Fabian, PAK57.32 Diverticulitis of large intestine without perforation or abscess without gwfetponS42.818 Encounter for other preprocedural examination Functional Status Description No Information Available Mental Status Description No Information Available Referrals Refer to Reason for Referral Status Appt Date Rosendo Ponce MD FOR 05/25/19 ---[id number]--- INPATIENT Created [address] [place] [address] [phone]
--- OUTSIDE RECORDS SUMMARY | 2019-07-14 17:34 | XMS REPORT | Continuity of Care Document ---
:1960 External Reference #:[id number] Author Name Jorge Hinojosa DO FACC (transmitted by agent of provider Kari Matos) Address [address] [place] [address] Care Team Providers Name Role Phone [facility] - Care Team Information Patient Financial Advocate [phone] Rehabilitation Jimenez Martinez DO - Emergency Medicine Care Team Information Patient Financial Advocate Blake Stout MD - Care Team Information Patient Financial Advocate [phone] Otolaryngology Dori Wilburn NP - Family Care Team Information Patient Financial Advocate [phone] Problems Active Problems Provider Date Asthma without [...] before surgery Humidifier Pls provide pt J45.20 [facility] 06/11/2017 2Gallon Misc with humidifoer MD Jono to be used at night Spiriva Respimat 2 puffs every day 4units [facility] 06/11/2017 2.5mcg/Act MD Jono Aerosol Symbicort 2 puff twice a 20.7gm J45.909 [facility] 12/27/2015 80-4.5mcg/Act Aerosol day as needed [...] Prep take according to the 354ml Lani Zaidi 2018 - Kit instructions you Unknown received, [...] Result H/L Range Note Comp Metabolic 06/29/2019 [facility] Sodium 134 mmol/L Low 135 -[address] [place] [address] [phone] Potassium 4.5 mmol/L Normal 3.5-5.0 Chloride 105 [...] Egfr 194.2 >60 1 Laboratory test 06/29/2019 [facility] Phosphorus 3.4 mg/dL Normal 2.5-5.[address] [place] [address] [phone] Magnesium 1.9 mg/dL Normal 1.9-2.7 CBC Auto 06/29/2019 [facility] White Blood 10.3 10^3/uL Normal 3.5-10.[address] [place] [address] [phone] Red Blood Count 3.61 10^6/uL Low 3.70-4.87 [...] Red Blood Cells % 0.0 Manual 06/29/2019 [facility] Immature 3.0 % Normal 0-[address] [place] [address] [phone] Neutrophil % 60.0 % Lymphocytes % 24.0 % Monocytes % 6.0 % Eosinophils % 3.0 % Basophil % 2.0 % Variant Lymph % 2.0 % Normal 0-6 Metamyelocytes % 1.0 % Normal 0-2 Myelocytes % 2.0 % High 0-1 RBC Morphology Normal Normal Anisocytosis 1+ CBC Auto 05/18/2019 [facility] White Blood 11.1 10^3/uL High 3.5-10.[address] [place] [address] [phone] Red Blood Count 4.95 10^6/uL High 3.70-4.87 [...] Blood Cells % 0.1 Comp Metabolic 05/18/2019 [facility] Sodium 137 mmol/L Normal 135-[address] [place] [address] [phone] Potassium 4.5 mmol/L Normal 3.5-5.0 Chloride 105 [...] dialysis) Procedures Date Code Description Status 06/02/2019 26950 ECHO Transthorasic Realtime 2D W Doppler & Color Flow Completed Hosp 05/25/2019 82021 Laparoscopy,Colectomy,Partial Completed W/Anastomsis,W/Coloproctostomy 05/25/2019 98411 Injection Intravenous To Test Blood Flow In Flap Or Completed Graft 03/24/2019 44802 EKG, Interpretation Only Completed 03/18/2019 24764603 Colonoscopy Completed 02/23/2019 15846 Diffusing Capacity Completed 02/23/2019 85908 Plethysmography Determination Lung Volumes & Per Airway Completed Resist 02/23/2019 09299 Pulmonary Function><Bronchodil Completed 02/24/2015 [id number] Colonoscopy Completed Medical Devices Description No Information Available Encounters Type Date Location Provider Dx Diagnosis Office Visit 06/11/2019 [facility] Allyn Key, D72.829 Elevated white 2:07p ana Herrera M.D. blood cell count, Hospitalists unspecified K56.7 Ileus, unspecified E03.9 Hypothyroidism, unspecified J45.909 Unspecified asthma, uncomplicated G47.33 Obstructive sleep apnea (adult) (pediatric) Office Visit 06/09/2019 2:07p [facility] Luis A Coppola, R10.9 Unspecified Assana sharma MD abdominal pain Hospitalists D72.829 Elevated white blood cell count, unspecified Office Visit 06/08/2019 [facility] Erica Agosto D72.829 Elevated white 11:23a For Infectious Kelly, ORTHOPEDIC SURGEON blood cell Diseases count, unspecified D47.3 Essential (hemorrhagic) thrombocythemia Office Visit 06/04/2019 [facility] Gloria Gavin D72.829 Elevated white 11:56a Hugo Varela M.D. blood cell Diseases count, unspecified Office Visit 06/04/2019 [facility] Rigoberto Hinojosa, J98.11 Atelectasis 11:54a M.D. D64.9 Anemia, unspecified E87.6 Hypokalemia E43 Unspecified severe protein-calorie malnutrition Office Visit 06/03/2019 [facility] Romaine Gavin D72.829 Elevated white 11:54a Hugo Varela M.D. blood cell Diseases count, unspecified Office Visit 06/03/2019 [facility] Rigoberto Hinojosa, D72.829 Elevated white 11:53a M.DKeith blood cell count, unspecified R10.9 Unspecified abdominal pain Office Visit 06/02/2019 Robert Gavin R94.31 Abnormal 2:49p [facility] Olivia Argueta electrocardiogram [facility] [ECG] [EKG] Office Visit 06/02/2019 [facility] Romaine Gavin D72.829 Elevated white blood 11:52a For Infectious Avery, cell count, Diseases M.D. 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 abdominal pain D72.829 Elevated white blood cell count, unspecified Office Visit 06/01/2019 11:29a [facility] Jorge SKeith I45.81 Long QT syndrome Of [facility] DO Ashish [facility] Office Visit 05/31/2019 11:53a [facility] Rigoberto Hinojosa A41.9 Sepsis, M.D. unspecified organism E87.6 Hypokalemia Office Visit 05/30/2019 11:52a [facility] Tricia Kearney1.9 Sepsis, unspecified M.D. organism K56.7 Ileus, unspecified E87.6 Hypokalemia Office Visit 05/29/2019 11:52a [facility] Tricia Cardoza1.9 Sepsis , unspecified organism K56.7 Ileus, unspecified E83.51 Hypocalcemia Office Visit 04/03/2019 [facility] Anila Z01.811 Encounter for 9:00a [facility] MD Jono preprocedural [facility] respiratory examination J45.909 Unspecified asthma, uncomplicated G47.33 Obstructive sleep apnea (adult) (pediatric) Office Visit 04/02/2019 10:30a Surgical Rosendo Dey K57.32 Dvtrcli of lg int [facility] Ponce MD w/o perforation or abscess w/o bleeding [facility]g int Assoc,pc O'caity, PA-C w/o perforation Hospitalists or abscess w/o bleeding Office Visit 03/25/2019 12[facility]p [facility] Dvtrcli of lg int Assoc,pc O'caity, PA-C w/o perforation Hospitalists or abscess w/o bleeding J45.909 Unspecified asthma, uncomplicated Office Visit 03/24/2019 [facility] K57.32 Dvtrcli of lg int 12:45p Assoc,pc O'caity, PA-C w/o perforation Hospitalists or abscess w/o bleeding R07.9 Chest pain, unspecified J45.909 Unspecified asthma, uncomplicated Office Visit 03/24/2019 Surgical Rosendo Dey K57.30 Dvrtclos of lg 7:00a [facility] Ponce MD int w/o perforation or abscess w/o bleeding Office Visit 03/23/2019 [facility] K57.32 Dvtrcli of lg int 12:45p Assoc,pc Vimal, ORTHOPEDIC SURGEON w/o perforation Hospitalists or abscess w/o bleeding R11.0 Nausea E03.9 Hypothyroidism, unspecified Office Visit 03/23/2019 7:00a Surgical Rosendo Dey K57.30 Dvrtclos of lg [facility]once MD int w/o perforation or abscess w/o bleeding Office Visit 03/22/2019 12:45p [facility] Catia K57.32 Dvtrcli of lg int Assoc,pc Jerman ORTHOPEDIC SURGEON w/o perforation Hospitalists or abscess w/o bleeding [...] M.D. 06/11/2019 J45.909 Unspecified asthma, uncomplicated Allyn Shahid, M.D. 06/11/2019 G47.33 Obstructive sleep apnea (adult) [...] 06/01/2019 I45.81 Long QT syndrome Jorge Hinojosa, [facility] 06/01/2019 K57.32 Diverticulitis of large intestine [...] K57.32 Diverticulitis of large intestine Zandra Shortle, ORTHOPEDIC SURGEON without perforation or abscess without bleeding 03/23/2019 R11.0 Nausea Zandra Shortle, ORTHOPEDIC SURGEON 03/23/2019 K57.30 Diverticulosis of large intestine Rosendo Ponce MD without perforation or abscess without bleeding 03/23/2019 E03.9 Hypothyroidism, unspecified Zandra Shortle, ORTHOPEDIC SURGEON 03/22/2019 K57.32 Diverticulitis of large intestine Catiajuanito Stoll, ORTHOPEDIC SURGEON without perforation or abscess without bleeding 02/23/2019 J45.20 Mild intermittent asthma, Anila De La Cruz MD uncomplicated Plan of Treatment Future Appointment(s):07/07/2019 9:00 am - Rosendo Ponce MD at [facility]07/17/2019 2:20 pm - Jorge Hinojosa DO FAC at [facility]10/05/2019 9:00 am - Anila De La Cruz MD at [facility]06/30/2019 - Rosendo Ponce MDK57.32 Diverticulitis of large [...] Appt Date Rosendo Ponce MD FOR 05/25/19 ---[id number]--- INPATIENT Created [address] [place] [address] [phone]
--- NOTE | 2019-07-14 18:15 | ED ---
Skin Complaint - HPI Summary HPI Summary: Patient complains of new onset pain at PICC line site on medial right upper arm 1 hour. Patient has history of receiving TPN/lipid infusions since May 25 status post abdominal surgery. Patient started normal infusion at 8 AM and continued until 1 hour ago when pain started. Patient was advised to disconnect TPN line per primary care. Does admit to stepping on the infusion line at some point during the day. Denies other trauma, fever, cough, sore throat, CP, SOB, N/V/D, abdominal pain, change in urine, change in BM. - History of Current Complaint Chief Complaint: EDExtremityUpper Time Seen by Provider: 07/14/19 18:04 Stated Complaint: PIC LINE PROBLEM PER PT Hx Obtained From: Patient, Family/Liquor Gallery Operator Onset/Duration: Started Hours Ago Skin Exposure Onset/Duration: Hours Ago Timing: Constant Onset Severity: Moderate Current Severity: Moderate Pain Intensity: 7 Pain Scale Used: 0-10 Numeric Skin Location: Discrete Character: Pain Aggravating Symptom(s): Touch Alleviating Symptom(s): Nothing Associated Signs & Symptoms: Negative - Additional Pertinent History Primary Care Physician: [id number] - Allergy/Home Medications Allergies/Adverse Reactions: Allergies Allergy/AdvReac Type Severity Reaction Status Date / Time codeine Allergy Hives Verified 07/14/19 17:30 Penicillins Allergy Hives Verified 07/14/19 17:30 aspirin AdvReac Vomiting Verified 07/14/19 17:30 PMH/Surg Hx/FS Hx/Imm Hx Endocrine/Hematology History: Reports: Hx Blood Transfusions - Post bleeding, Hx Thyroid Disease, Hx Anemia Denies: Hx Anticoagulant Therapy, Hx Diabetes, Other Endocrine/Hematological Disorders Cardiovascular History: Reports: Hx Hypercholesterolemia, Other Cardiovascular Problems/Disorders - HYPERCHOLESTEROLEMIA Denies: Hx Angina, Hx Coronary Artery Disease, Hx Hypertension, Hx Myocardial Infarction, Hx Pacemaker/ICD, Hx Peripheral Vascular Disease, Hx Valvular Heart Disease Respiratory History: Reports: Hx Asthma, Hx Sleep Apnea - Has Cpap at home Denies: Hx Chronic Obstructive Pulmonary Disease (COPD), Other Respiratory Problems/Disorders GI History: Reports: Hx Gall Bladder Disease - Gall bladder removed, Hx Obstructive Bowel, Hx Pyloric Stenosis, Hx Ulcer, Other GI Disorders - Adhesions , H Pylori, SBO History: Reports: Other Problems/Disorders - 2009- urethral stenosis-HAD DILITATION FOR- NO PROBLEMS SINCE Denies: Hx Dialysis, Hx Renal Disease Musculoskeletal History: Reports: 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 Denies: Other Musculoskeletal History Sensory History: Reports: Hx Contacts or Glasses Denies: Hx Cataracts, Hx Glaucoma, Hx Hearing Aid, Other Sensory Impairments Opthamlomology History: Reports: Hx Contacts or Glasses Denies: Hx Cataracts, Hx Glaucoma, Other Sensory Impairments Neurological History: Denies: Hx Dementia, Hx Seizures, Other Neuro Impairments/Disorders Psychiatric History: Reports: Hx Depression Denies: Hx Anxiety, Hx Panic Disorder, Hx Substance Abuse, Other Psychiatric Issues/Disorders - Cancer History Cancer Type, Location and Year: Cervical CA. SHAINA - Surgical History Surgery Procedure, Year, and Place: PLANNED SURG 05/25/19 - RESECTION - COLON. C-SECTIONS 82, 83, 85, 1988-oophorectomy, 1994 [place], 1997 (right) simone rotator cuff, 1999 (right) knee arthroscopy, 2000 cholecystectomy, [facility] [facility] (left) shoulder rotator cuff, 06/26 [facility] [place]. gastrocsopy w/CLOtest & biopsy , 02/26 [facility] (right) carpal tunnel, 04/28 [facility] [place] (left) carpal tunnel, 05/30 [facility] gastroscopy w/CLOtest & gastric, antral biopsy, 09/28 [facility] [place] gastroscopy w/ duodenal & gastric , endoscopy in Aug 09. biopsy, 09/28 [facility] exp lap & lysis of adhesions, [CONT.'] 10/29 [facility] partial small obstruction, 03/31 [facility] [place] (left) carpal tunnel, 03/01 [facility] colposcopy w/biopsy of vaginal cuff & genital wart ablation. Rt FOOT - REPAIRED 2ND TOE - W/ SCREW. 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 appendectomy-1990. robotic sigmoid colectomy Hx Anesthesia Reactions: No - Immunization History Date of Influenza Vaccine: 05/07 Infectious Disease History: No Infectious Disease History: Denies: Hx Clostridium Difficile, Hx Hepatitis, Hx Human Immunodeficiency Virus (HIV), Hx of Known/Suspected MRSA, Hx Shingles, Hx Tuberculosis, Hx Known/ Suspected VRE, Hx Known/Suspected VRSA, History Other Infectious Disease, Traveled Outside the [place] in Last 30 Days - Family History Known Family History: Positive: None, Cardiac Disease, Diabetes, Other - Negative asthma - Social History Alcohol Use: None Hx Substance Use: No Substance Use Type: Reports: None Hx Tobacco Use: Yes Smoking Status (MU): Former Smoker Type: Cigarettes Amount Used/How Often: 1 pk/day Length of Time of Smoking/Using Tobacco: 30 years Have You Smoked in the Last Year: Yes Review of Systems Constitutional: Negative Eyes: Negative ENT: Negative Cardiovascular: Negative Respiratory: Negative Gastrointestinal: Negative Genitourinary: Negative Musculoskeletal: Negative Skin: Other Neurological: Negative Psychological: Normal All Other Systems Reviewed And Are Negative: Yes Physical Exam - Summary Physical Exam Summary: No erythema, ecchymosis, deformity, swelling, extra warmth noted to PICC line site. Area is tender to palpation per patient. PICC line appears to be placed and well anchored with Tegaderm. PICC line lumen/ports flush and draw. Chest x -ray confirms normal placement of PICC line. Patient's home health nurse called with prior measurements of right upper arm and current measurements are consistent with those measurements, suggesting no new swelling. Flexion does not cause increase swelling, nor does it cause pain to patient. PMS intact distally. Triage Information Reviewed: Yes Vital Signs On Initial Exam: Initial Vitals Temp Pulse Resp BP Pulse Ox 98.8 F 96 16 127/81 100 07/14/19 17:26 07/14/19 17:26 07/14/19 17:26 07/14/19 17:26 07/14/19 17:26 Vital Signs Reviewed: Yes Appearance: Positive: Well-Appearing Skin: Positive: Warm Head/Face: Positive: Normal Head/Face Inspection Eyes: Positive: Normal Neck: Positive: Supple Respiratory/Lung Sounds: Positive: Clear to Auscultation Cardiovascular: Positive: Normal Abdomen Description: Positive: Nontender Musculoskeletal: Positive: Normal Neurological: Positive: Normal Psychiatric: Positive: Normal AVPU Assessment: Alert - [place] Coma Scale Best Eye Response: 4 - Spontaneous Best Motor Response: 6 - Obeys Commands Best Verbal Response: 5 - Oriented Coma Scale Total: 15 Procedures - Sedation Patient Received Moderate/Deep Sedation with Procedure: No Diagnostics - Vital Signs Vital Signs Temp Pulse Resp BP Pulse Ox 07/14/19 17:26 98.8 F 96 16 127/81 100 - Laboratory Lab Statement: Any lab studies that have been ordered have been reviewed, and results considered in the medical decision making process. Course/Dx - Course Course Of Treatment: Patient complains of new onset pain at PICC line site on medial right upper arm 1 hour. Patient has history of receiving TPN/lipid infusions since May 4 status post abdominal surgery. Patient started normal infusion at 8 AM and continued until 1 hour ago when pain started. Patient was advised to disconnect TPN line per primary care. Does admit to stepping on the infusion line at some point during the day. Denies other trauma , fever, cough, sore throat, CP, SOB, N/V/D, abdominal pain, change in urine, change in BM. Vital signs within normal limits. PICC line flushes and draws normally. Chest x-ray confirms normal placement of PICC line. Negative for DVT. - Diagnoses Provider Diagnoses: Contusion Discharge ED - Sign-Out/Discharge Documenting (check all that apply): Patient Departure - Discharge Plan Condition: Stable Disposition: HOME Patient Education Materials: Contusion in Adults (ED) Referrals: Dori Wilburn WATERWORKS CHIEF ENGINEER [Primary Care Provider] - Additional Instructions: Take tramadol as directed for arm pain. Follow-up with primary care. - Billing Disposition and Condition Condition: STABLE Disposition: Home - Attestation Statements Provider Attestation: Patient was presented to me by Deep JAFFE. Patient has a history of diverticulitis and is currently getting TPN/lipids through a PICC line in the right arm. Patient has had this PICC line since May. Patient has 1 week left of doing TPN. Patient received her infusion today and then had pain in her right arm. Patient's PICC line does draw and flush easily. Patient does have tenderness on exam at the entry site of her PICC line. Patient had an ultrasound performed which showed no DVT. Patient was discharged on tramadol for pain control. Patient's PICC line did not look infected
[2019-07-14] MEDS ORDERED: traMADol TAB* 50 MG PO ONE (19:25)
[2019-07-14] MEDS ORDERED: Iohexol 350* (CONTRAST) 500 ML MDV IV ONE (19:57)
[2019-07-14 21:48] VITALS: BP 122/80
== END 2019-07-14 21:48 | disposition home or self-care (01) ==
LOC: ED 17:23
DX: S40.021A Contusion of right upper arm, initial encounter (principal); X58.XXXA Exposure to other specified factors, initial encounter; Y92.9 Unspecified place or not applicable; Z97.8 Presence of other specified devices; E07.9 Disorder of thyroid, unspecified; J45.909 Unspecified asthma, uncomplicated; G47.30 Sleep apnea, unspecified; Z88.6 Allergy status to analgesic agent; Z88.5 Allergy status to narcotic agent; Z88.0 Allergy status to penicillin; Z87.891 Personal history of nicotine dependence
CPT/HCPCS: 71045; 99283; A9270-GY

== ENCOUNTER 2019-09-27 14:44 | Inpatient (IN) | payer OTHER ==
[2019-09-27] MEDS ORDERED: Vancomycin(*) 1,500 MG in NS 0.9% 250 ML* 250 ML IVPB ONE (15:35)
[2019-09-27] MEDS ORDERED: metroNIDAZOLE IV 500 MG/100ML* 500 MG/100 ML BAG IVPB ONE (15:35)
[2019-09-27] MEDS ORDERED: Ciprofloxacin 400MG IVPREMIX(* 400 MG/200 ML BAG IVPB ONE (15:36)
[2019-09-27] MEDS ORDERED: NS 0.9% 1000 ML** 1,000 ML IV ONE (15:37)
[2019-09-27] MEDS ORDERED: Morphine 4 MG/ML VIAL (1 ml) 4 MG/ML VIAL IV ONE ×2 (15:41→19:26)
--- NOTE | 2019-09-27 15:41 | ED ---
Abdominal Pain/Female - HPI Summary HPI Summary: This patient is a 58-year-old female with history of sigmoid diverticulitis with 2 prior abdominal surgeries presenting with CC of leakage from the low mid abdomen. She was discharged from the ED following a 2 month stay for complications. A wound vac was placed to the mid abdomen and had subsequent VNS services for wound care following. Since jul, she has not had any complications. This morning, she noticed a copious amount of leakage from the area. She also had a low grade fever at home with some chills and is now c/o R sided abd "fullness" stating she has a deformity or "mass" that has been growing in size over the past few weeks. Tenderness to the abd is mild. She denies any blood from the drainage site, but notes to erythema surrounding. Urinating well. No issues with BM. Last BM yesterday. Last PO intake this morning (coffee only). Dr. Ponce surgeon for patient. Patient is tearful and very anxious. - History of Current Complaint Chief Complaint: EDGeneral Stated Complaint: ABDOMINAL LACERATION PER EMS Time Seen by Provider: 09/27/19 14:52 Hx Obtained From: Patient, Family/Table Saw Operator ?: No Onset/Duration: Sudden Onset Severity Initially: Moderate Severity Currently: Moderate Pain Intensity: 6 Pain Scale Used: 0-10 Numeric Aggravating Factor(s): Nothing Alleviating Factor(s): Nothing Associated Signs and Symptoms: Positive: Negative Allergies/Adverse Reactions: Allergies Allergy/AdvReac Type Severity Reaction Status Date / Time codeine Allergy Hives Verified 08/21/19 10:21 Penicillins Allergy Hives Verified 08/21/19 10:21 aspirin AdvReac Vomiting Verified 08/21/19 10:21 Home Medications: Home Medications Levothyroxine TAB* [Synthroid 75 MCG TAB*] 75 mcg PO QAM 09/16/17 [History Confirmed 08/14/19] Budesonide/Formote 80/4.5(NF) [Symbicort 80/4.5 (NF)] 2 puff INH BID PRN [History Confirmed 08/14/19] Tiotropium [place] [Spiriva Respimat] 2 puff INH QAM 05/18/19 [History Confirmed 08/14/19] Docusate CAP* [Colace Cap*] 100 mg PO BID cap 06/26/19 [Rx Confirmed 08/14/19] LORazepam TAB(*) [Ativan 0.5 MG TAB (*)] 0.5 mg PO Q6H PRN #10 tab MDD 3 [Rx Confirmed 08/14/19] Ondansetron ODT TAB* [Zofran 4 MG Odt TAB*] 4 mg PO Q6H PRN #15 tab.odt [Rx Confirmed 08/14/19] traMADol TAB* [Ultram*] 50 mg PO Q6H PRN #30 tab MDD 4 06/26/19 [Rx Confirmed ] Biotin 1 tab PO DAILY 08/14/19 [History Confirmed 08/14/19] Ibuprofen 600 mg PO DAILY PRN 08/14/19 [History Confirmed 08/14/19] Multivitamin [Once Daily] 1 each PO DAILY 08/14/19 [History Confirmed 08/14/19] PMH/Surg Hx/FS Hx/Imm Hx Previously Healthy: Yes Endocrine/Hematology History: Reports: Hx Blood Transfusions - Post bleeding, Hx Thyroid Disease, Hx Anemia Denies: Hx Anticoagulant Therapy, Hx Diabetes, Other Endocrine/Hematological Disorders Cardiovascular History: Reports: Hx Hypercholesterolemia, Other Cardiovascular Problems/Disorders - HYPERCHOLESTEROLEMIA Denies: Hx Angina, Hx Coronary Artery Disease, Hx Hypertension, Hx Myocardial Infarction, Hx Pacemaker/ICD, Hx Peripheral Vascular Disease, Hx Valvular Heart Disease Respiratory History: Reports: Hx Asthma, Hx Sleep Apnea - Has Cpap at home Denies: Hx Chronic Obstructive Pulmonary Disease (COPD), Other Respiratory Problems/Disorders GI History: Reports: Hx Diverticulosis, Hx Gall Bladder Disease - Gall bladder removed, Hx Obstructive Bowel, Hx Pyloric Stenosis, Hx Ulcer, Other GI Disorders - Adhesions, H Pylori, SBO History: Reports: Other Problems/Disorders - 2009- urethral stenosis-HAD DILITATION FOR- NO PROBLEMS SINCE Denies: Hx Dialysis, Hx Renal Disease Musculoskeletal History: Reports: Hx Back Problems, 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 Denies: Other Musculoskeletal History Sensory History: Reports: Hx Contacts or Glasses Denies: Hx Cataracts, Hx Glaucoma, Hx Hearing Aid, Other Sensory Impairments Opthamlomology History: Reports: Hx Contacts or Glasses Denies: Hx Cataracts, Hx Glaucoma, Other Sensory Impairments Neurological History: Denies: Hx Dementia, Hx Seizures, Other Neuro Impairments/Disorders Psychiatric History: Reports: Hx Depression Denies: Hx Anxiety, Hx Panic Disorder, Hx Substance Abuse, Other Psychiatric Issues/Disorders - Cancer History Cancer Type, Location and Year: Cervical CA. [facility] - Surgical History Surgical History: Yes Surgery Procedure, Year, and Place: 05/25/19 - RESECTION - COLON. C-SECTIONS 82 , 83, 85, 1989-oophorectomy, 1994 [place], 1997 (right) shouler rotator cuff, 1999 ( right) knee arthroscopy, 2000 cholecystectomy, 10/23 [facility] [place] (left) shoulder rotator cuff, 06/26 [facility] [place]. gastrocsopy w/CLOtest & biopsy, 02/26 [facility] [place] (right) carpal tunnel, 04/28 [facility] [place] (left) carpal tunnel, 05/30 [facility] [place] gastroscopy w/CLOtest & gastric, antral biopsy, 09/28 [facility] [place] gastroscopy w/duodenal & gastric , endoscopy in Aug 09. biopsy, 09/28 [facility] [place] exp lap & lysis of adhesions, [CONT.'] 10/29 [facility] [place] partial small obstruction, 03/31 [facility] (left) carpal tunnel, 03/01 [facility] [place] colposcopy w/biopsy of vaginal cuff & genital wart ablation. Rt FOOT - REPAIRED 2ND TOE - W/ SCREW. 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 appendectomy-1990. robotic sigmoid colectomy 05/27/19 Hx Anesthesia Reactions: No - Immunization History Date of Influenza Vaccine: 05/07 Infectious Disease History: No Infectious Disease History: Denies: Hx Clostridium Difficile, Hx Hepatitis, Hx Human Immunodeficiency Virus (HIV), Hx of Known/Suspected MRSA, Hx Shingles, Hx Tuberculosis, Hx Known/ Suspected VRE, Hx Known/Suspected VRSA, History Other Infectious Disease, Traveled Outside the [place] in Last 30 Days - Family History Known Family History: Positive: None, Cardiac Disease, Diabetes, Other - Negative asthma - Social History Alcohol Use: None Hx Substance Use: No Substance Use Type: Reports: None Hx Tobacco Use: Yes Smoking Status (MU): Never Smoked Tobacco Type: Cigarettes Amount Used/How Often: 1 pk/day Length of Time of Smoking/Using Tobacco: 30 years Have You Smoked in the Last Year: Yes Review of Systems Negative: Fever, Chills, Skin Diaphoresis Negative: Chest Pain Negative: Shortness Of Breath, Cough Positive: Abdominal Pain Positive: Other - small opening to the mid lower abd Neurological/Mental Status: Negative All Other Systems Reviewed And Are Negative: Yes Physical Exam Triage Information Reviewed: Yes Vital Signs On Initial Exam: Initial Vitals Temp Pulse Resp BP Pulse Ox 100.3 F 101 20 160/97 99 09/27/19 14:52 09/27/19 14:52 09/27/19 14:52 09/27/19 14:52 09/27/19 14:52 Vital Signs Reviewed: Yes Appearance: Positive: Well-Appearing, Well-Nourished Skin: Positive: Warm, Skin Color Reflects Adequate Perfusion, Other - opening to the lower mid abdomen with surrounding erythema Head/Face: Positive: Normal Head/Face Inspection Eyes: Positive: Conjunctiva Clear Neck: Positive: Supple, No Lymphadenopathy Respiratory/Lung Sounds: Positive: Clear to Auscultation, Breath Sounds Present Cardiovascular: Positive: Pulses are Symmetrical in both Upper and Lower Extremities Abdomen Description: Positive: Other: - right sided abd pain Musculoskeletal: Positive: Strength/ROM Intact Neurological: Positive: Speech Normal Psychiatric: Positive: Affect/Mood Appropriate Procedures - Sedation Patient Received Moderate/Deep Sedation with Procedure: No Diagnostics - Vital Signs Vital Signs Temp Pulse Resp BP Pulse Ox 09/27/19 14:52 100.3 F 101 20 160/97 99 - Laboratory Result Diagrams: 09/27/19 15:59 09/27/19 15:59 Lab Statement: Any lab studies that have been ordered have been reviewed, and results considered in the medical decision making process. Abdominal Pain Fem Course/Dx - Course Course Of Treatment: On arrival to the ED, patient appears in distress and very anxious. Patient has small opening to the mid low abdomen with tenderness throughout - worse to the L side. L sided abd distension. According to patient , this has been worsening since surgery 2 mos ago, unable to find records of surgery and ICU stay in Jul. Patient is crying and anxious. Lungs CTA, RRR with slight tachycardia on arrival at 103. Afebrile, however in room, patient noted to be at 100.8. There is drainage to the mid lower abd of serous fluid without blood. Likely tracking from a seroma. There is erythema surrounding the area. Culture of the drainage obtained and pending. Blood cultures and labs obtained. Labs show an elevated WBC and CRP of 18.1 and 155 respectively. She is given 2L fluids, vanco, cipro and flagyl. CT abd/pelvis with IV contrast ordered. Discussed with Dr. Gomez who also was able to see patient. CT pending, patient is signed out to LD Olivera pending CT results. Patient was also given morphine, zofran and ativan for symptom control. - Diagnoses Provider Diagnoses: Abdominal pain - Provider Notifications Discussed Care Of Patient With: Cory Gomez Discharge ED - Sign-Out/Discharge Documenting (check all that apply): Sign-Out Patient Signing out patient TO: Carolee Ren - Discharge Plan Condition: Fair Referrals: Dori Wilburn, [employer] [Primary Care Provider] - - Billing Disposition and Condition Condition: FAIR
[2019-09-27] MEDS ORDERED: LORazepam INJ* 2 MG/ML 1 ML VIAL IV PUSH ONE (15:42)
[2019-09-27] MEDS ORDERED: Lorazepam PYXIS KEY PRN (15:42)
--- OUTSIDE RECORDS SUMMARY | 2019-09-27 15:43 | XMS REPORT | Continuity of Care Document ---
:1960 External Reference #:[id number] Author Name Rosendo Ponce MD (transmitted by agent of provider Maria Del Rosario Liz) Address [address] [place] [id number] Care Team Providers Name Role Phone [facility] - Care Team Information Machine Compositor [phone] Rehabilitation Jimenez Martinez DO - Emergency Medicine Care Team Information Machine Compositor Blake Stout MD - Care Team Information Machine Compositor [phone] Otolaryngology Dori Wilburn NP - Family Care Team Information Machine Compositor [phone] Problems Active Problems Provider Date Asthma without [...] days for 25 years Smoking Status Reviewed: 09/16/19 Patient is a former Quit in January 2017, smoker smoked 1 pack every 2 days for 25 years Exercise Type/Frequency Exercises sporadically Walking Allergies, Adverse Reactions, Alerts Active Allergies Reaction Severity Comments Date Penicillin GI Upset 07/25/2015 Codeine Hives 07/25/2015 Aspirin Upsets stomach 03/26/2019 Inactive Allergies Penicillin 12/06/2016 Codeine 12/06/2016 Medications Active Medications SIG Qnty Indications Ordering Provider Date Miralax 17 gm mixed with Rosendo Dey 09/16/2019 Powder 8 ounces of MD Kris water twice a day for 7 days, then daily for 7 days Spiriva Respimat 2 puffs every 3units Anila De La Cruz, 06/11/2017 day 2.5mcg/Act Aerosol Symbicort 2 puff twice a 3units J45.909 Anila De La Cruz, 12/27/2015 80-4.5mcg/Act day as needed Aerosol Levothyroxine Sodium 1 by mouth every Unknown day 75mcg Tablets Cpap at night Unknown Colace 1 tab by mouth Unknown 100mg Capsules 2-3 times a day as needed Ativan 1 tab by mouth Unknown 0.5mg Tablets twice a day as needed for anxiety Tylenol 2 tablets every Unknown 325mg Capsules 4 hours as needed for pain Multi Vitamin 1 by mouth every Unknown Tablets day Biotin Pt unsure of Unknown 5mg Capsules dose, 1 tab daily History Medications Ibuprofen 200 600mg by mouth as 42tabs Rosendo Dey 08/12/2019 - 200mg needed for pain with MD Kris Unknown Tablets breakfast and dinner meals Flagyl 1 tab by mouth at 1:00 [...] Kit instructions you Unknown received, the day 17.5-3.13-1.6GM/177 before surgery ML Solution Peg as directed the day 4000ml Lani Zaidi, 05/18/2019 - 3350/Electrolytes before surgery Unknown 240gm Solution Rec Immunizations CPT Code Status Date Vaccine Lot # [id number] Given 10/27/2015 Fluvirin Im 3Yrs And Older Vital Signs Date Vital Result Comment 09/16/2019 11:01am Weight 159.00 lb Heart Rate 68 /min BP Systolic Sitting 118 mmHg BP Diastolic Sitting 80 mmHg Respiratory Rate 16 /min Body Temperature 98.6 F 08/27/2019 1:38pm Weight 160.00 lb Heart Rate 80 /min BP Systolic Sitting 114 mmHg BP Diastolic Sitting 70 mmHg Respiratory Rate 16 /min Body Temperature 98.8 F Results Test Acquired Date Facility Test Result H/L Range Note CBC Auto 07/27/2019 [facility] White Blood 7.8 10^3/uL Normal 3.5-10.[address] [place] [address] [phone] Red Blood Count 4.01 10^6/uL Normal 3.70-4.87 Hemoglobin 10.0 g/dL Low 12.0-16.0 Hematocrit 32 % Low 35-47 Mean Corpuscular Volume 80 fL Normal 80-97 Mean Corpuscular Hemoglobin 25 pg Low 27-31 Mean Corpuscular HGB Conc 31 g/dL Normal 31-36 Red Cell Distribution Width 16 % High 10-15 Platelet Count 277 10^3/uL Normal 150-450 Mean Platelet Volume 10.9 fL High 7.4-10.4 Abs Neutrophils 3.9 10^3/uL Normal 1.5-7.7 Abs Lymphocytes 2.6 10^3/uL Normal 1.0-4.8 Abs Monocytes 1.0 10^3/uL High 0-0.8 Abs Eosinophils 0.2 10^3/uL Normal 0-0.6 Abs Basophils 0.1 10^3/uL Normal 0-0.2 Abs Nucleated RBC 0.0 10^3/uL Granulocyte % 50.2 % Lymphocyte % 33.4 % Monocyte % 13.1 % Eosinophil % 2.5 % Basophil % 0.8 % Nucleated Red Blood Cells % 0.0 Comp Metabolic 07/27/2019 [facility] Sodium 138 mmol/L Normal 135-[address] [place] [address] [phone] Potassium 4.3 mmol/L Normal 3.5-5.0 Chloride 109 mmol/L Normal 101-111 Co2 Carbon Dioxide 23 mmol/L Normal 22-32 Anion Gap 6 mmol/L Normal 2-11 Glucose 88 mg/dL Normal 70-100 Blood Urea Nitrogen 13 mg/dL Normal 6-24 Creatinine 0.48 mg/dL Low 0.51-0.95 BUN/Creatinine Ratio 27.1 High 8-20 Calcium 9.0 mg/dL Normal 8.6-10.3 Total Protein 6.5 g/dL Normal 6.4-8.9 Albumin 3.6 g/dL Normal 3.2-5.2 Globulin 2.9 g/dL Normal 2-4 Albumin/Globulin Ratio 1.2 Normal 1-3 Total Bilirubin 0.40 mg/dL Normal 0.2-1.0 Alkaline Phosphatase 102 U/L Normal 34-104 Alt 16 U/L Normal 7-52 Ast 18 U/L Normal 13-39 Egfr Non- 133.8 >60 Egfr 161.9 >60 1 Laboratory test 07/27/2019 [facility] Phosphorus 3.6 mg/dL Normal 2.5-5.0 finding [address] [place] [address] [phone] Magnesium 1.8 mg/dL Low 1.9-2.7 TSH (Thyroid Stim Horm) 0.06 mcIU/mL Low 0.34-5.60 Comp Metabolic 07/20/2019 [facility] Sodium 137 mmol/L Normal 135-145 Panel [address] [place] [address] [phone] Potassium 3.9 mmol/L Normal 3.5-5.0 Chloride 108 mmol/L Normal 101-111 Co2 Carbon Dioxide 24 mmol/L Normal 22-32 Anion Gap 5 mmol/L Normal 2-11 Glucose 140 mg/dL High 70-100 Blood Urea Nitrogen 10 mg/dL Normal 6-24 Creatinine 0.45 mg/dL Low 0.51-0.95 BUN/Creatinine Ratio 22.2 High 8-20 Calcium 9.0 mg/dL Normal 8.6-10.3 Total Protein 6.3 g/dL Low 6.4-8.9 Albumin 3.2 g/dL Normal 3.2-5.2 Globulin 3.1 g/dL Normal 2-4 Albumin/Globulin Ratio 1.0 Normal 1-3 Total Bilirubin 0.40 mg/dL Normal 0.2-1.0 Alkaline Phosphatase 99 U/L Normal 34-104 Alt 15 U/L Normal 7-52 Ast 18 U/L Normal 13-39 Egfr Non- 144.1 >60 Egfr 174.4 >60 2 Laboratory test 07/20/2019 [facility] Phosphorus 3.6 mg/dL Normal 2.5-5.[address] [place] [address] [phone] Magnesium 1.8 mg/dL Low 1.9-2.7 CBC Auto 07/20/2019 [facility] White Blood 7.5 10^3/uL Normal 3.5-10.[address] [place] [address] [phone] Red Blood Count 3.78 10^6/uL Normal 3.70-4.87 Hemoglobin 9.7 g/dL Low 12.0-16.0 Hematocrit 30 % Low 35-47 Mean Corpuscular Volume 80 fL Normal 80-97 Mean Corpuscular Hemoglobin 26 pg Low 27-31 Mean Corpuscular HGB Conc 32 g/dL Normal 31-36 Red Cell Distribution Width 16 % High 10-15 Platelet Count 277 10^3/uL Normal 150-450 Mean Platelet Volume 10.6 fL High 7.4-10.4 Abs Neutrophils 4.0 10^3/uL Normal 1.5-7.7 Abs Lymphocytes 2.3 10^3/uL Normal 1.0-4.8 Abs Monocytes 0.7 10^3/uL Normal 0-0.8 Abs Eosinophils 0.3 10^3/uL Normal 0-0.6 Abs Basophils 0.0 10^3/uL Normal 0-0.2 Abs Nucleated RBC 0.0 10^3/uL Granulocyte % 54.2 % Lymphocyte % 31.2 % Monocyte % 9.3 % Eosinophil % 4.6 % Basophil % 0.7 % Nucleated Red Blood Cells % 0.1 Comp Metabolic 07/13/2019 [facility] Sodium 138 mmol/L Normal 135-[address] [place] [address] [phone] Potassium 4.0 mmol/L Normal 3.5-5.0 Chloride 107 mmol/L Normal 101-111 Co2 Carbon Dioxide 24 mmol/L Normal 22-32 Anion Gap 7 mmol/L Normal 2-11 Glucose 89 mg/dL Normal 70-100 Blood Urea Nitrogen 10 mg/dL Normal 6-24 Creatinine 0.45 mg/dL Low 0.51-0.95 BUN/Creatinine Ratio 22.2 High 8-20 Calcium 8.7 mg/dL Normal 8.6-10.3 Total Protein 6.5 g/dL Normal 6.4-8.9 Albumin 3.2 g/dL Normal 3.2-5.2 Globulin 3.3 g/dL Normal 2-4 Albumin/Globulin Ratio 1.0 Normal 1-3 Total Bilirubin 0.60 mg/dL Normal 0.2-1.0 Alkaline Phosphatase 87 U/L Normal 34-104 Alt 13 U/L Normal 7-52 Ast 14 U/L Normal 13-39 Egfr Non- 144.1 >60 Egfr 174.4 >60 3 Laboratory test 07/13/2019 [facility] Phosphorus 4.3 mg/dL Normal 2.5-5.[address] [place] [address] [phone] Magnesium 1.8 mg/dL Low 1.9-2.7 CBC Auto 07/13/2019 [facility] White Blood 7.4 10^3/uL Normal 3.5-10.[address] [place] [address] [phone] Red Blood Count 3.66 10^6/uL Low 3.70-4.87 Hemoglobin 9.6 g/dL Low 12.0-16.0 Hematocrit 29 % Low 35-47 Mean Corpuscular Volume 80 fL Normal 80-97 Mean Corpuscular Hemoglobin 26 pg Low 27-31 Mean Corpuscular HGB Conc 33 g/dL Normal 31-36 Red Cell Distribution Width 16 % High 10-15 Platelet Count 263 10^3/uL Normal 150-450 Mean Platelet Volume 10.5 fL High 7.4-10.4 Abs Neutrophils 4.1 10^3/uL Normal 1.5-7.7 Abs Lymphocytes 2.3 10^3/uL Normal 1.0-4.8 Abs Monocytes 0.8 10^3/uL Normal 0-0.8 Abs Eosinophils 0.2 10^3/uL Normal 0-0.6 Abs Basophils 0.1 10^3/uL Normal 0-0.2 Abs Nucleated RBC 0.0 10^3/uL Granulocyte % 55.5 % Lymphocyte % 30.7 % Monocyte % 10.2 % Eosinophil % 2.9 % Basophil % 0.7 % Nucleated Red Blood Cells % 0.0 CBC Auto 07/06/2019 [facility] White Blood 10.5 10^3/uL Normal 3.5-10.[address] [place] [address] [phone] Red Blood Count 3.79 10^6/uL Normal 3.70-4.87 [...] Blood Cells % 0.0 Comp Metabolic 07/06/2019 [facility] Sodium 136 mmol/L Normal 135-[address] [place] [address] [phone] Potassium 4.3 mmol/L Normal 3.5-5.0 Chloride 107 [...] Egfr Non- 137.1 >60 Egfr 165.9 >60 4 Laboratory test 07/06/2019 [facility] Phosphorus 3.9 mg/dL Normal 2.5-5.[address] [place] [address] [phone] Magnesium 2.0 mg/dL Normal 1.9-2.7 Comp Metabolic Panel 06/29/2019 [facility] Sodium 134 mmol/L Low 135-[address] [place] [address] [phone] Potassium 4.5 mmol/L Normal 3.5-5.0 Chloride 105 [...] Egfr Non- 160.5 >60 Egfr 194.2 >60 5 Laboratory test 06/29/2019 [facility] Phosphorus 3.4 mg/dL Normal 2.5-5.0 finding [address] [place] [address] [phone] Magnesium 1.9 mg/dL Normal 1.9-2.7 CBC Auto 06/29/2019 [facility] White Blood 10.3 10^3/uL Normal 3.5-10.[address] [place] [address] [phone] Red Blood Count 3.61 10^6/uL Low 3.70-4.87 [...] Red Blood Cells % 0.0 Manual 06/29/2019 [facility] Immature 3.0 % Normal 0-[address] [place] [address] [phone] Neutrophil % 60.0 % Lymphocytes % 24.0 % Monocytes % 6.0 % Eosinophils % 3.0 % Basophil % 2.0 % Variant Lymph % 2.0 % Normal 0-6 Metamyelocytes % 1.0 % Normal 0-2 Myelocytes % 2.0 % High 0-1 RBC Morphology Normal Normal Anisocytosis 1+ CBC Auto 05/18/2019 [facility] White Blood 11.1 10^3/uL High 3.5-10.8 [address] [place] [address] [phone] Red Blood Count 4.95 10^6/uL High 3.70-4.87 [...] Blood Cells % 0.1 Comp Metabolic 05/18/2019 [facility] Sodium 137 mmol/L Normal 135-[address] [place] [address] [phone] Potassium 4.5 mmol/L Normal 3.5-5.0 Chloride 105 [...] Egfr Non- 88.0 >60 Egfr 106.5 >60 7 1 Because ethnic data is not always [...] 5 Kidney failure <15 (or dialysis) 3 Because ethnic data is not always [...] 15-29 5 Kidney failure <15 (or dialysis) 4 Because ethnic data is not always [...] 15-29 5 Kidney failure <15 (or dialysis) 5 Because ethnic data is not always readily [...] 15-29 5 Kidney failure <15 (or dialysis) 6 AA 05/25 7 Because ethnic data is not always readily [...] (or dialysis) Procedures Date Code Description Status 07/17/2019 87182 EKG Tracing & Interpretation Completed 06/03/2019 62812 EKG, Interpretation Only Completed 06/02/2019 17664 ECHO Transthorasic Realtime 2D W Doppler & Color Flow Completed Hosp 06/02/2019 36263 EKG, Interpretation Only Completed 06/01/2019 14003 EKG, Interpretation Only Completed 05/29/2019 80141 EKG, Interpretation Only Completed 05/25/2019 76276 Laparoscopy,Colectomy,Partial Completed W/Anastomsis,W/Coloproctostomy 05/25/2019 62705 Injection Intravenous To Test Blood Flow In Flap Or Completed Graft 03/18/2019 [id number] Colonoscopy Completed 02/24/2015 [id number] Colonoscopy Completed Medical Devices Description No Information Available Encounters Type Date Location Provider Dx Diagnosis Office Visit 09/16/2019 Surgical Rosendo Dey R10.813 Right lower quadrant 11:30a Associates Dameon Ponce MD abdominal tenderness [facility] Office Visit 08/27/2019 Vj Dey R10.813 Right lower quadrant 1:30p Associates Dameon Ponce MD abdominal tenderness [facility] Office Visit 07/17/2019 [place] Jorge S. R94.31 Abnormal 2:20p Cardiology Of DO Ashish electrocardiogram [ECG] [facility] FACC [EKG] I45.81 Long QT syndrome Office Visit 06/11/2019 [facility] Allyn Key, D72.829 Elevated white 2:07p Assoc,pc Olivia blood cell Hospitalists count, unspecified K56.7 Ileus, unspecified E03.9 Hypothyroidism, unspecified J45.909 Unspecified asthma, uncomplicated G47.33 Obstructive sleep apnea (adult) (pediatric) Office Visit 06/09/2019 2:07p [facility] Luis A Coppola, R10.9 Unspecified Assocana MD abdominal pain Hospitalists D72.829 Elevated white blood cell count, unspecified Office Visit 06/08/2019 [facility] Erica Agosto D72.829 Elevated white 11:23a For Infectious Kelly, [employer] blood cell Diseases count, unspecified D47.3 Essential (hemorrhagic) thrombocythemia Office Visit 06/04/2019 11:54a [facility] Rigoberto Hinojosa M.D. J98.11 Atelectasis D64.9 Anemia, unspecified E87.6 Hypokalemia E43 Unspecified severe protein-calorie malnutrition Office Visit 06/04/2019 [facility] For Romaine Gavin D72.829 Elevated white 11:56a Hugo Varela M.D. blood cell Diseases count, unspecified Office Visit 06/03/2019 [facility] Rigoberto Hinojosa, D72.829 Elevated white 11:53a M.DKeith blood cell count, unspecified R10.9 Unspecified abdominal pain Office Visit 06/03/2019 [facility] Romaine Gavin D72.829 Elevated white 11:54a For Hugo Varela M.D. blood cell count, Diseases unspecified Office Visit 06/02/2019 [facility] Romaine Gavin D72.829 Elevated white 11:52a For Hugo Varela M.D. 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 electrocardiogram [ECG] [EKG] Office Visit 06/02/2019 [facility] Rigoberto Hinojosa, R10.9 Unspecified abdominal 11:53a M.D. pain D72.829 Elevated white blood cell count, unspecified Office Visit 06/01/2019 11:29a [place] [facility] Jorge SKeith I45.81 Long QT syndrome Of Helder Hinojosa DO [facility] Office Visit 05/31/2019 11:53a [facility] Obinna Kearney.Juan Sepsis, M.DKeith unspecified organism E87.6 Hypokalemia Office Visit 05/30/2019 11:52a [facility] Tricia Kearney1.9 Sepsis, unspecified M.D. organism K56.7 Ileus, unspecified E87.6 Hypokalemia Office Visit 05/29/2019 11:52a [facility] Tricia Cardoza1.9 Sepsis , MD unspecified organism K56.7 Ileus, unspecified E83.51 Hypocalcemia Office Visit 04/03/2019 Pulmonology And Anila Z01.811 Encounter for 9:00a Sleep Services Of MD Jono preprocedural [facility] respiratory examination J45.909 Unspecified asthma, uncomplicated G47.33 Obstructive sleep apnea (adult) (pediatric) Office Visit 04/02/2019 10:30a Surgical Rosendo Dey K57.32 Dvtrcli of lg int [facility] MD Kris w/o perforation or abscess w/o bleeding Assessments Date Code Description Provider 09/16/2019 R10.813 Right lower quadrant abdominal Rosendo Ponce MD tenderness 08/27/2019 R10.813 Right lower quadrant abdominal Rosendo Ponce MD tenderness 08/12/2019 K57.32 Diverticulitis of large intestine Rosendo Ponce MD without perforation or abscess without bleeding 08/04/2019 K57.32 Diverticulitis of large intestine Rosendo Ponce MD without perforation or abscess without bleeding 07/29/2019 K57.32 Diverticulitis of large intestine Rosendo Ponce MD without perforation or abscess without bleeding 07/23/2019 K57.32 Diverticulitis of large intestine Rosendo Ponce MD without perforation or abscess without bleeding 07/17/2019 R94.31 Abnormal electrocardiogram [ECG] Jorge Hinojosa, DO FACC [EKG] 07/17/2019 I45.81 Long QT syndrome Jorge Hinojosa, DO FACC 07/16/2019 K57.32 Diverticulitis of large intestine Rosendo Ponce MD without perforation or abscess without bleeding 07/09/2019 K57.32 Diverticulitis of large intestine Rosendo Ponce MD without perforation or abscess without bleeding 07/08/2019 K57.32 Diverticulitis of large intestine Rosendo Ponce MD without perforation or abscess without bleeding 07/07/2019 K57.32 Diverticulitis of large intestine Rosendo Ponce MD without perforation or abscess without bleeding 07/02/2019 K57.32 Diverticulitis of large intestine Rosendo Ponce [...] Elevated white blood cell count, Erica Kelly , NANDO unspecified 06/08/2019 K57.32 Diverticulitis of large intestine [...] abscess without bleeding 06/04/2019 E87.6 Hypokalemia Rigoberto Hinoojsa M.D. 06/04/2019 E43 Unspecified severe protein-calorie Rigoberto Hinojosa M.D. malnutrition 06/03/2019 R94.31 Abnormal electrocardiogram [ECG] Niko Argueta M.D. [EKG] 06/03/2019 D72.829 Elevated white blood cell count, Rigoberto Hinojosa M.D. unspecified 06/03/2019 K57.32 Diverticulitis of large intestine Rosendo Ponce MD without perforation or abscess without bleeding 06/03/2019 R10.9 Unspecified abdominal pain Rigoberto Hinojosa M.D. 06/03/2019 D72.829 Elevated white blood cell count, Romaine Varela M.D. unspecified 06/02/2019 R94.31 Abnormal electrocardiogram [ECG] Niko Argueta M.D. [EKG] 06/02/2019 R94.31 Abnormal electrocardiogram [ECG] Niko Argueta [...] 06/01/2019 I45.81 Long QT syndrome Jorge Hinojosa, DO [facility] 06/01/2019 I45.81 Long QT syndrome Jorge Hinojosa, DO [facility] 06/01/2019 K57.32 Diverticulitis of large [...] 05/30/2019 E87.6 Hypokalemia Rigoberto Hinojosa M.D. 05/29/2019 R94.31 Abnormal electrocardiogram [ECG] Erika Monroe M.D. [EKG] 05/29/2019 A41.9 Sepsis, unspecified organism Megan Martinez [...] MD without perforation or abscess without bleeding Plan of Treatment Future Appointment(s):10/26/2019 3:00 pm - Loreta Nieves MD at [facility]01/08/2020 10:20 am - Jorge Hinojosa DO FACC at [place] [facility]10/05/2019 9:00 am - Malissa Caicedo NP at [facility]09/16/2019 - Rosendo Ponce, MDR10.813 Right lower quadrant abdominal tendernessComments:Some constipation. She will be taking some fzbg-cqn-mezomoy MiraLAX as needed increasing the fluid in her diet, follow up with any issues Functional Status Description No Information Available Mental Status Description No Information Available Referrals Refer to Dr Reason for Referral Status Appt Date [facility] nutritional education, maintain weight Closed 05/[address] [place] [id number] [phone] Rosendo Ponce MD FOR 05/25/19 ---616[address]--- INPATIENT Created [address] [place] [address] [phone]
--- OUTSIDE RECORDS SUMMARY | 2019-09-27 15:43 | XMS REPORT | Continuity of Care Document ---
:1960 External Reference #:[id number] Author Name NITISH Gil-C Address [address] [place] [address] Care Team Providers Name Role Phone Harpal Castaneda M.D. - Family Medicine Care Team Information Library Sales Consultant Valente Mills MD - Care Team Information Library Sales Consultant [phone] Gastroenterology Deep Norman MD - Surgery Care Team Information Library Sales Consultant [phone] Flavio Segundo MD - Gynecology Care Team Information Library Sales Consultant [phone] Marixa Messer MD - Obstetrics & Care Team Information Library Sales Consultant Gynecology Problems Active Problems Provider Date Hypothyroidism Bethany Anders M.D. Onset: 08/24/2011 Social History Type Date Description Comments Sex Unknown Tobacco Use Start: Unknown Former cigarette smoker, smoked cigarette smoker , has 1 pack a day for 30 years, smoked 1 pack a day for the current past 30 years. Quit in '04. ETOH Use Occasionally consumes alcohol Tobacco Use Start: Unknown Patient is a current smoker, smokes every day Allergies, Adverse Reactions, Alerts Active Allergies Reaction Severity Comments Date PCN rash 02/15/2004 Codeine hives 02/15/2004 Medications Active Medications SIG Qnty Indications Ordering Provider Date Rogcullen Womendain apply to scalp 1units L65.9 Dori Wilburn, 09/23/2019 5% Foam daily RUBBER WASHER-C Knee-High Compression Wear daily. Low I87.2 Harpal Castaneda M.D. 04/17/2019 Stockings compression, measure to fit. Spiriva Handihaler 1 cap inh qd 1month 466.0 Dori Wilburn, 11/16/2011 18mcg RUBBER WASHER-C Capsules Levothyroxine Sodium take 1 tablet 90tabs E03.9 Dori Wilburn, 2011 once daily RUBBER WASHER-C 75mcg Tablets Lorazepam 1 by mouth every 14tabs Dori Wilburn, 0.5mg Tablets 8 hours if RUBBER WASHER-C needed for anxiety or muscle spasm Ondansetron 1 by mouth every 15tabs Dori Wilburn, 4mg Tablets 6 hours as RUBBER WASHER-C Dispers needed Tramadol HCL Unknown 50mg Tablets History Medications Methylprednisolone take orally per 21units M54.16 Dori Becerra 05/13/2019 - 4mg TBPK package Cosmo, RUBBER WASHER-C 06/12/2019 directions Fluconazole 1 by mouth x 1, 2tabs N76.0 Harpal Castaneda, 03/30/2019 - 150mg Tablets repeat dose in 7 M.DKeith 05/13/2019 days Nexium 24HR 1 po qd N76.0 Harpal Castaneda, 03/30/2019 - 20mg Capsules DR Baker 06/28/2019 Medications Administered in Office Medication SIG Qnty Indications Ordering Provider Date TB,Intradermal (PPD, Mantoux) NITISH Salinas-C 09/18/2011 Injection Vitamin B-12 Injection-To [facility] 02/15/2010 1000mcg Injection Vitamin B-12 Injection-To [facility] 01/16/2010 1000mcg Injection Immunizations CPT Code Status Date Vaccine Lot # [id number] Given 05/13/2019 Influenza Virus Vaccine, Quadrivalent, 3 Yr > [id number] Quad, Preserv Free 16171 Given 05/13/2019 Prevnar-13 Pneumococcal Conjugate Vaccine [id number] 21359 Given 05/08/2011 Influenza Vaccine-Preservative Free 3 Yrs And Above 98668 Given 05/08/2010 Influenza Vaccine-Preservative Free 3 Yrs And [id number] Above 88398 Given 06/17/2009 H1N1 Influenza Vaccine [id number] 16958 Given 05/12/2009 Influenza Vaccine-Preservative Free 3 Yrs And [id number] Above 99737 Given 04/27/2008 Pneumovax 23 (PPSV23) 65+ years or high risk 2 to 1960U 66 year old 06553 Given 04/27/2008 Influenza Virus Vaccine, 3 Yrs And Above [id number] 02411 Given 05/20/2006 Influenza Virus Vaccine, 3 Yrs And Above [id number] 27305 Given 06/27/2005 Influenza Virus Vaccine, 3 Yrs And Above [id number] Vital Signs Date Vital Result Comment 09/23/2019 3:47pm Weight 163.00 lb Weight 73.937 kg BP Systolic 118 mmHg BP Diastolic 76 mmHg Heart Rate 88 /min Body Temperature 97.2 F Respiratory Rate 16 /min 07/29/2019 9:38am Weight 153.00 lb Weight 69.401 kg BP Systolic 118 mmHg BP Diastolic 80 mmHg Body Temperature 97.2 F Respiratory Rate 16 /min Results Test Acquired Date Facility Test Result H/L Range Note Laboratory test 09/23/2019 [facility] TSH <pending> finding [phone] (Thyroid Stim Horm) Comp Metabolic 07/27/2019 [facility] Sodium 138 mmol/ L Normal 135-145 Panel [phone] Potassium 4.3 mmol/L Normal 3.5-5.0 Chloride 109 [...] Egfr 161.9 >60 1 Laboratory test 07/27/2019 [facility] Phosphorus 3.6 mg/dL Normal 2.5-5.0 finding [phone] Magnesium 1.8 mg/dL Low 1.9-2.7 TSH (Thyroid Stimulating Horm) 0.06 mcIU/mL Low 0.34-5.60 CBC Auto 07/27/2019 [facility] White Blood 7.8 10^3/ uL Normal 3.5-10.8 Diff [phone] Count Red Blood Count 4.01 10^6/uL Normal 3.70-4.87 [...] Red Blood Cells % 0.0 Comp Metabolic 05/18/2019 [facility] Sodium 137 mmol/ L Normal 135-145 2 Panel [phone] Potassium 4.5 mmol/L Normal 3.5-5.0 Chloride 105 [...] Non- 88.0 >60 Egfr 106.5 >60 3 CBC Auto 05/18/2019 [facility] White Blood 11.1 10^3/ uL High 3.5-10.8 Diff [phone] Count Red Blood Count 4.95 10^6/uL High 3.70-4.87 [...] % Nucleated Red Blood Cells % 0.1 Urine DIP 03/30/2019 In House Lab Leukocytes unable to read Neg ([phone] - Urine Nitrites neg Neg Urobilinogen norm Norm Total Protein Urine neg Neg Urine pH 5 5-6 Urine Blood neg Neg Specific [place] 1.030 High 1.01-1.02 Urine Ketones neg Neg Urine Bilirubin neg Neg Urine Glucose norm Norm 1 Because ethnic data is not always [...] Date Location Provider Dx Diagnosis Office Visit 09/23/2019 Philippe Becerra L65.9 Nonscarring hair 3:45p Storm, RUBBER WASHER-C loss, unspecified Office Visit 07/29/2019 Philippe Becerra K57.12 Dvtrcli of sm int 9:45a Storm, RUBBER WASHER-C w/o perforation or abscess w/o bleeding E03.9 Hypothyroidism, unspecified Office Visit 05/13/2019 Philippe Becerra M54.16 Radiculopathy, 10:15a Storm, RUBBER WASHER-C lumbar region Z23 Encounter for immunization Office Visit 03/30/2019 10:45a Philippe Castaneda, N76.0 Acute vaginitis M.Leslye E03.9 Hypothyroidism, unspecified Assessments Date Code Description Provider 09/23/2019 L65.9 Alopecia GELACIO Gil 07/29/2019 K57.12 Diverticulitis of small intestine without GELACIO Gil perforation or abscess without bleeding 07/29/2019 E03.9 Hypothyroidism, unspecified GELACIO Gil 05/13/2019 M54.16 Radiculopathy, lumbar region GELACIO Gil 05/13/2019 Z23 Encounter for immunization GELACIO Gil 03/30/2019 N76.0 Acute vaginitis Harpal Castaneda M.D. 03/30/2019 E03.9 Hypothyroidism, unspecified Harpal Castaneda M.D. Plan of Treatment Future Appointment(s):11/04/2019 9:00 am - [facility]2019 - NITISH Gil-CL65.9 AlopeciaNew Medication :Rogaine Womens 5 % - apply to scalp dailyComments:labs obtained today, I suspect hair loss is a result of her recent surgery and nutritional set back, may take 12 months to correct, will obtain TSH and testosterone levels today, trial of topical rogaine. If testosterone levels are elevated will consider aldactone or metformin to suppress this Functional Status Description No Information Available Mental Status Description No Information Available Referrals Refer to Dr Reason for Referral Status Appt Date Loreta Nieves Referral to neurosurgery. MRI shows Scheduled 2019 arthritis, central canal narrowing and disc bulge at the L4 L54 level, this is overall worse than prior MRI. - - Please contact Pt to schedule appt. - - Please fax appointment date/time to [facility], [place], [place] [address] [phone] Pain Clinic Referral to pain clinic for possible injections. MRI Scheduled 07/27/2019 scheduled. - - Please contact Pt to schedule appt. - - Please fax appointment date/time to [facility] [place], . [place] [id number] [phone]
--- OUTSIDE RECORDS SUMMARY | 2019-09-27 15:43 | XMS REPORT | Continuity of Care Document ---
:1960 External Reference #:[id number] Author Name Rosendo Ponce MD (transmitted by agent of provider Josseline Hamilton) Address [address] [place] [id number] Care Team Providers Name Role Phone [facility] - Care Team Information Hot Tar Roofer Helper [phone] Rehabilitation Jimenez Martinez DO - Emergency Medicine Care Team Information Hot Tar Roofer Helper Blake Stout MD - Care Team Information Hot Tar Roofer Helper [phone] Otolaryngology Dori Wilburn NP - Family Care Team Information Hot Tar Roofer Helper [phone] Problems Active Problems Provider Date Asthma without [...] days for 25 years Smoking Status Reviewed: 08/27/19 Patient is a former Quit in January 2017, smoker smoked 1 pack every 2 days for 25 years Exercise Type/Frequency Exercises sporadically Walking Allergies, Adverse Reactions, Alerts Active Allergies Reaction Severity Comments Date Penicillin GI Upset 07/25/2015 Codeine Hives 07/25/2015 Aspirin Upsets stomach 03/26/2019 Inactive Allergies Penicillin 12/06/2016 Codeine 12/06/2016 Medications Active Medications SIG Qnty Indications Ordering Provider Date Spiriva Respimat 2 puffs every 3units Anila De La Cruz, 06/11/2017 day 2.5mcg/Act Aerosol Symbicort 2 puff twice a 3units J45.909 Anila Jono, 12/27/2015 80-4.5mcg/Act day as needed Aerosol Levothyroxine [...] - 500mg pm, 2:00 pm and 11:00 MD Olivares Tablets pm the day before surgery Neomycin Sulfate 2 tabs by mouth at 6tabs Lani Zaidi, 05/18/2019 - 1:00 pm, 2:00 pm, and MD Olivares 500mg Tablets 11:00 pm the day before surgery Suprep Bowel Prep take according to the 354ml Lani Zaidi, 2018 - Kit instructions you MD Olivares received, the day 17.5-3.13-1.6GM/177 before surgery ML Solution Peg as directed the day 4000ml Lani Zaidi, 05/18/2019 - 3350/Electrolytes before surgery MD Olivares 240gm Solution Rec Immunizations CPT Code Status Date Vaccine Lot # [id number] Given 10/27/2015 Fluvirin Im 3Yrs And Older Vital Signs Date Vital Result Comment 08/27/2019 1:38pm Weight 160.00 lb Heart Rate 80 /min BP Systolic Sitting 114 mmHg BP Diastolic Sitting 70 mmHg Respiratory Rate 16 /min Body Temperature 98.8 F 08/12/2019 10:36am Weight 160.00 lb Heart Rate 80 /min Respiratory Rate 16 /min Body Temperature 98.3 F Results Test Acquired Date Facility Test Result H/L Range Note CBC Auto 07/27/2019 [facility] White Blood 7.8 10^3/uL Normal 3.5-10.[address] [place] [address] [phone] Red Blood Count 4.01 10^6/uL Normal 3.70-4.87 [...] Blood Cells % 0.0 Comp Metabolic 07/27/2019 [facility] Sodium 138 mmol/L Normal 135-[address] [place] [address] [phone] Potassium 4.3 mmol/L Normal 3.5-5.0 Chloride 109 [...] Egfr 161.9 >60 1 Laboratory test 07/27/2019 [facility] Phosphorus 3.6 mg/dL Normal 2.5-5.0 finding [address] [place] [address] [phone] Magnesium 1.8 mg/dL Low 1.9-2.7 TSH (Thyroid Stim Horm) 0.06 mcIU/mL Low 0.34-5.60 Comp Metabolic 07/20/2019 [facility] Sodium 137 mmol/L Normal 135-145 Panel [address] [place] [address] [phone] Potassium 3.9 mmol/L Normal 3.5-5.0 Chloride 108 [...] Egfr 174.4 >60 2 Laboratory test 07/20/2019 [facility] Phosphorus 3.6 mg/dL Normal 2.5-5.0 finding [address] [place], [place] [id number] [phone] Magnesium 1.8 mg/dL Low 1.9-2.7 CBC Auto 07/20/2019 [facility] White Blood 7.5 10^3/uL Normal 3.5-10.[address] [place] [address] [phone] Red Blood Count 3.78 10^6/uL Normal 3.70-4.87 [...] Blood Cells % 0.1 Comp Metabolic 07/13/2019 [facility] Sodium 138 mmol/L Normal 135-[address] [place] [address] [phone] Potassium 4.0 mmol/L Normal 3.5-5.0 Chloride 107 [...] Egfr 174.4 >60 3 Laboratory test 07/13/2019 [facility] Phosphorus 4.3 mg/dL Normal 2.5-5.[address] [place] [address] [phone] Magnesium 1.8 mg/dL Low 1.9-2.7 CBC Auto 07/13/2019 [facility] White Blood 7.4 10^3/uL Normal 3.5-10.[address] [place] [address] [phone] Red Blood Count 3.66 10^6/uL Low 3.70-4.87 [...] Blood Cells % 0.0 CBC Auto 07/06/2019 [facility] White Blood 10.5 10^3/uL Normal 3.5-10.[address] [place] [address] [phone] Red Blood Count 3.79 10^6/uL Normal 3.70-4.87 [...] Blood Cells % 0.0 Comp Metabolic 07/06/2019 [facility] Sodium 136 mmol/L Normal 135-[address] [place] [address] [phone] Potassium 4.3 mmol/L Normal 3.5-5.0 Chloride 107 [...] Egfr 165.9 >60 4 Laboratory test 07/06/2019 [facility] Phosphorus 3.9 mg/dL Normal 2.5-5.0 finding [address] [place] [address] [phone] Magnesium 2.0 mg/dL Normal 1.9-2.7 Comp Metabolic Panel 06/29/2019 [facility] Sodium 134 mmol/L Low 135-145 [address] [place] [address] [phone] Potassium 4.5 mmol/L Normal 3.5-5.0 Chloride 105 [...] Egfr 194.2 >60 5 Laboratory test 06/29/2019 [facility] Phosphorus 3.4 mg/dL Normal 2.5-5.0 finding [address] [place] [address] [phone] Magnesium 1.9 mg/dL Normal 1.9-2.7 CBC Auto 06/29/2019 [facility] White Blood 10.3 10^3/uL Normal 3.5-10.[address] [place] [address] [phone] Red Blood Count 3.61 10^6/uL Low 3.70-4.87 [...] Red Blood Cells % 0.0 Manual 06/29/2019 [facility] Immature 3.0 % Normal 0-[address] [place] [address] [phone] Neutrophil % 60.0 % Lymphocytes % 24.0 % Monocytes % 6.0 % Eosinophils % 3.0 % Basophil % 2.0 % Variant Lymph % 2.0 % Normal 0-6 Metamyelocytes % 1.0 % Normal 0-2 Myelocytes % 2.0 % High 0-1 RBC Morphology Normal Normal Anisocytosis 1+ CBC Auto 05/18/2019 [facility] White Blood 11.1 10^3/uL High 3.5-10.8 [address] [place] [address] [phone] Red Blood Count 4.95 10^6/uL High 3.70-4.87 [...] Blood Cells % 0.1 Comp Metabolic 05/18/2019 [facility] Sodium 137 mmol/L Normal 135-[address] [place] [address] [phone] Potassium 4.5 mmol/L Normal 3.5-5.0 Chloride 105 [...] dialysis) Procedures Date Code Description Status 07/17/2019 14452 EKG Tracing & Interpretation Completed 06/03/2019 74839 EKG, Interpretation Only Completed 06/02/2019 43337 ECHO Transthorasic Realtime 2D W Doppler & Color Flow Completed Hosp 06/02/2019 57102 EKG, Interpretation Only Completed 06/01/2019 96554 EKG, Interpretation Only Completed 05/29/2019 99278 EKG, Interpretation Only Completed 05/25/2019 76407 Laparoscopy,Colectomy,Partial Completed W/Anastomsis,W/Coloproctostomy 05/25/2019 65360 Injection Intravenous To Test Blood Flow In Flap Or Completed Graft 03/24/2019 19399 EKG, Interpretation Only Completed 03/18/2019 [id number] Colonoscopy Completed 02/24/2015 [id number] Colonoscopy Completed Medical Devices Description No Information Available Encounters Type Date Location Provider Dx Diagnosis Office Visit 07/17/2019 [facility] Jorge Mccormack.31 Abnormal 2:20p Of Helder Hinojosa DO electrocardiogram [ECG] FACC [EKG] I45.81 Long QT syndrome Office Visit 06/11/2019 [facility] Allyn Key, D72.829 Elevated white 2:07p Assoc,pc Olivia blood cell Hospitalists count, unspecified K56.7 Ileus, unspecified E03.9 Hypothyroidism, unspecified J45.909 Unspecified asthma, uncomplicated G47.33 Obstructive sleep apnea (adult) (pediatric) Office Visit 06/09/2019 2:07p [facility] Luis A Coppola, R10.9 Unspecified Assocana MD abdominal pain Hospitalists D72.829 Elevated white blood cell count, unspecified Office Visit 06/08/2019 [facility] Erica Agosto D72.829 Elevated white 11:23a For Hugo Kelly NP blood cell Diseases count, unspecified D47.3 Essential (hemorrhagic) thrombocythemia Office Visit 06/04/2019 [facility] Gloria Gavin D72.829 Elevated white 11:56a Hugo Varela M.D. blood cell Diseases count, unspecified Office Visit 06/04/2019 [facility] Rigoberto Hinojosa, J98.11 Atelectasis 11:54a Olivia D64.9 Anemia, unspecified E87.6 Hypokalemia E43 Unspecified severe protein-calorie malnutrition Office Visit 06/03/2019 [facility] Gloria Gavin D72.829 Elevated white 11:54a Infectious Olivia Varela blood cell Diseases count, unspecified Office Visit 06/03/2019 [facility] Rigoberto Hinojosa, D72.829 Elevated white 11:53a M.DKeith blood cell count, unspecified R10.9 Unspecified abdominal pain Office Visit 06/02/2019 [facility] R94.31 Abnormal 2:49p Cardiology Of Olivia Argueta electrocardiogram [facility] [ECG] [EKG] Office Visit 06/02/2019 [facility] Romaine Gavin D72.829 Elevated white blood 11:52a For Infectious Avery, cell count, Diseases M.D. 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 abdominal pain D72.829 Elevated white blood cell count, unspecified Office Visit 06/01/2019 11:29a [facility] Jorge Queen I45.81 Long QT syndrome [facility] DO Ashish [facility] Office Visit 05/31/2019 11:53a [facility] Rigoberto Hinojosa, A41.9 Sepsis, M.D. unspecified organism E87.6 Hypokalemia Office Visit 05/30/2019 11:52a [facility] Rigoberto Hinojosa, A41.9 Sepsis, unspecified M.D. organism K56.7 Ileus, unspecified E87.6 Hypokalemia Office Visit 05/29/2019 11:52a [facility] Megan Martinez A41.9 MD Christy unspecified organism K56.7 Ileus, unspecified E83.51 Hypocalcemia Office Visit 04/03/2019 [facility] And Anila Z01.811 Encounter for 9:00a [facility] Of MD Jono preprocedural [facility] respiratory examination J45.909 Unspecified asthma, uncomplicated G47.33 Obstructive sleep apnea (adult) (pediatric) Office Visit 04/02/2019 10:30a Surgical Rosendo Dey K57.32 Dvtrcli of int [facility] Helder Ponce MD w/o perforation or abscess w/o bleeding Office Visit 03/26/2019 12:46p [facility] Kayla K57.32 Dvtrcli of lg int Assoc,pc O'caity, PA-C w/o perforation Hospitalists or abscess w/o bleeding Office Visit 03/25/2019 12:46p [facility] Kayla K57.32 Dvtrcli of lg int Assoc,pc O'caity, PA-C w/o perforation Hospitalists or abscess w/o bleeding J45.909 Unspecified asthma, uncomplicated Office Visit 03/24/2019 [facility] K57.32 Dvtrcli of lg int 12:45p Assoc,pc O'caity, PA-C w/o perforation Hospitalists or abscess w/o bleeding R07.9 Chest pain, unspecified J45.909 Unspecified asthma, uncomplicated Office Visit 03/24/2019 Surgical Rosendo Dey K57.30 Dvrtclos of lg 7:00a [facility] Helder Ponce MD int w/o perforation or abscess w/o bleeding Office Visit 03/23/2019 [facility] K57.32 Dvtrcli of lg int 12:45p Assoc,pc Vimal, CONVEYOR LOADER w/o perforation Hospitalists or abscess w/o bleeding R11.0 Nausea E03.9 Hypothyroidism, unspecified Office Visit 03/23/2019 7:00a Surgical Rosendo Dey K57.30 Dvrtclos of lg [facility] Helder Ponce MD int w/o perforation or abscess w/o bleeding Office Visit 03/22/2019 12:45p [facility] Catia K57.32 Dvtrcli of lg int Assoc,ana Stoll NP w/o perforation Hospitalists or abscess w/o bleeding Assessments Date Code Description Provider 08/12/2019 K57.32 Diverticulitis of large intestine Rosendo [...] bleeding 07/17/2019 R94.31 Abnormal electrocardiogram [ECG] Jorge Hinojosa DO FACC [EKG] 07/17/2019 I45.81 Long QT [...] bleeding 06/20/2019 K57.32 Diverticulitis of large intestine Salmoe Piña MD without perforation or abscess without [...] I45.81 Long QT syndrome Jorge Hinojosa, DO [facility] 06/01/2019 I45.81 Long QT syndrome Jorge Hinojosa, DO [facility] 06/01/2019 K57.32 Diverticulitis of large intestine Osorio Diaz PA-C without perforation or abscess without bleeding 06/01/2019 K63.1 Perforation of intestine Osorio Diaz PA-C (nontraumatic) 06/01/2019 K66.0 Peritoneal adhesions (postprocedural) LD Mendoza (postinfection) 05/31/2019 A41.9 Sepsis, unspecified organism Rigoberto Hinojsoa M.D. 05/31/2019 K57.32 Diverticulitis of large intestine [...] without bleeding 03/25/2019 J45.909 Unspecified asthma, uncomplicated Kyala O'caity, PA-C 03/24/2019 R00.1 Bradycardia, unspecified Niko Argueta M.D. 03/24/2019 K57.32 Diverticulitis of large intestine Kayla O'caity, PA-C without perforation or abscess without bleeding 03/24/2019 R07.9 Chest pain, unspecified Kayla O'caity, PA-C 03/24/2019 J45.909 Unspecified asthma, uncomplicated Kayla O'caity, PA-C 03/24/2019 K57.30 Diverticulosis of large intestine Rosendo Ponce MD without perforation or abscess without bleeding 03/23/2019 K57.32 Diverticulitis of large intestine Zandra Celis, NANDO without perforation or abscess without bleeding 03/23/2019 R11.0 Nausea Zandra Ceils, CONVEYOR LOADER 03/23/2019 K57.30 Diverticulosis of large intestine Rosendo Ponce MD without perforation or abscess without bleeding 03/23/2019 E03.9 Hypothyroidism, unspecified Zandra Celis, CONVEYOR LOADER 03/22/2019 K57.32 Diverticulitis of large intestine Catia Jerman, NANDO without perforation or abscess without bleeding Plan of Treatment Future Appointment(s):01/08/2020 10:20 am - Jorge Hinojosa DO FACC at [facility]10/05/2019 9:00 am - Malissa Caicedo NP at [facility]08/12/2019 - Rosendo Ponce MDK57.32 Diverticulitis of large intestine without perforation or abscess without bleedingComments:Ibuprofen twice a day as needed for discomfort, referral to nutrition/dietitian for healthy eating education and maintenance of weightReferral:[facility] Functional Status Description No Information Available Mental Status Description No Information Available Referrals Refer to Reason for Referral Status Appt Date [facility] nutritional education, maintain weight [address] [place] [address] [phone] Rosendo Ponce MD FOR 05/25/19 ---[id number]--- INPATIENT Created [address] [place] [address] [phone]
--- OUTSIDE RECORDS SUMMARY | 2019-09-27 15:43 | XMS REPORT | Continuity of Care Document ---
:1960 External Reference #:[id number] Author Name NITISH Gil-C (transmitted by agent of provider Odalis Whitley) Address [address] [place] [address] Care Team Providers Name Role Phone Harpal Castaneda M.D. - Family Medicine Care Team Information [facility] Valente Mills MD - Care Team Information [facility] [phone] Gastroenterology Deep Norman MD - Surgery Care Team Information [facility] [phone] Flavio Segundo MD - Gynecology Care Team Information [facility] [phone] Marixa Messer MD - Obstetrics & Care Team Information [facility] [phone] Gynecology Problems Active Problems Provider Date Hypothyroidism [...] Medications SIG Qnty Indications Ordering Provider Date Bebo Womendain apply to scalp 1units L65.9 Dori Wilburn, 09/23/2019 5% Foam daily CITY DESIGNER-C Knee-High Compression Wear daily. Low I87.2 Harpal Castaneda M.D. 04/17/2019 Stockings compression, measure to fit. Spiriva Handihaler 1 cap inh qd 1month 466.0 Dori Wilburn, 11/16/2011 18mcg CITY DESIGNER-C Capsules Levothyroxine Sodium take 1 tablet 90tabs E03.9 Dori Wilburn, 2011 once daily CITY DESIGNER-C 75mcg Tablets Lorazepam 1 by mouth every 14tabs Dori Wilburn, 0.5mg Tablets 8 hours if CITY DESIGNER-C needed for anxiety or muscle spasm Ondansetron 1 by mouth every 15tabs Dori Wilburn, 4mg Tablets 6 hours as CITY DESIGNER-C Dispers needed Tramadol HCL Unknown 50mg Tablets History Medications Methylprednisolone take orally per 21units M54.16 Dori Becerra 05/13/2019 - 4mg TBPK package Cosmo, CITY DESIGNER-C 06/12/2019 directions Fluconazole 1 by mouth x 1, 2tabs N76.0 Harpal Castaneda, 03/30/2019 - 150mg Tablets repeat dose in 7 M.DKeith 05/13/2019 days Nexium 24HR 1 po qd N76.0 Harpal Castaneda, 03/30/2019 - 20mg Capsules DR Baker 06/28/2019 Medications Administered in Office Medication SIG Qnty Indications Ordering Provider Date TB,Intradermal (PPD, Mantoux) Graciela Davenport, CITY DESIGNER-C 09/18/2011 Injection Vitamin B-12 Injection-To [facility] 02/15/2010 1000mcg Injection Vitamin B-12 Injection-To [facility] 01/16/2010 1000mcg Injection Immunizations CPT Code Status Date Vaccine Lot # [id number] Given 05/13/2019 Influenza Virus Vaccine, Quadrivalent, 3 Yr > [id number] Quad, Preserv Free 25732 Given 05/13/2019 Prevnar-13 Pneumococcal Conjugate Vaccine [id number] 95223 Given 05/08/2011 Influenza Vaccine-Preservative Free 3 Yrs And Above 23762 Given 05/08/2010 Influenza Vaccine-Preservative Free 3 Yrs And [id number] Above 33326 Given 06/17/2009 H1N1 Influenza Vaccine [id number] 73041 Given 05/12/2009 Influenza Vaccine-Preservative Free 3 Yrs And [id number] Above 42503 Given 04/27/2008 Pneumovax 23 (PPSV23) 65+ years or high risk 2 to 1960U 66 year old 33427 Given 04/27/2008 Influenza Virus Vaccine, 3 Yrs And Above [id number] 51336 Given 05/20/2006 Influenza Virus Vaccine, 3 Yrs And Above 51345 61284 Given 06/27/2005 Influenza Virus Vaccine, 3 Yrs And Above [id number] Vital Signs Date Vital Result Comment 09/23/2019 [...] Result H/L Range Note Laboratory test 09/23/2019 [facility] TSH 0.40 Normal 0.34-5.60 1 finding [phone] (Thyroid mcIU/mL Stim Horm) Comp Metabolic 07/27/2019 [facility] Sodium 138 mmol/ L Normal 135-145 Panel [phone] Potassium 4.3 mmol/L Normal 3.5-5.0 Chloride 109 [...] Egfr Non- 133.8 >60 Egfr 161.9 >60 2 Laboratory test 07/27/2019 [facility] Phosphorus 3.6 mg/dL Normal 2.5-5.0 finding [phone] Magnesium 1.8 mg/dL Low 1.9-2.7 TSH (Thyroid Stimulating Horm) 0.06 mcIU/mL Low 0.34-5.60 CBC Auto 07/27/2019 [facility] White Blood 7.8 10^3/ uL Normal 3.5-10.8 Diff [phone] Count Red Blood Count 4.01 10^6/uL Normal [...] Blood Cells % 0.0 Comp Metabolic 05/18/2019 [facility] Sodium 137 mmol/ L Normal 135-145 3 Panel [phone] Potassium 4.5 mmol/L Normal 3.5-5.0 Chloride 105 [...] Non- 88.0 >60 Egfr 106.5 >60 4 CBC Auto 05/18/2019 [facility] White Blood 11.1 10^3/ uL High 3.5-10.8 Diff [phone] Count Red Blood Count 4.95 10^6/uL High [...] 5 5-6 Urine Blood neg Neg Specific [place] 1.030 High 1.01-1.02 Urine Ketones neg Neg Urine Bilirubin neg Neg Urine Glucose norm Norm 1 [id number] 2 Because ethnic data is not always [...] Philippe Becerra L65.9 Nonscarring hair 3:45p Storm, CITY DESIGNER-C loss, unspecified Office Visit 07/29/2019 Philippe Becerra K57.12 Dvtrcli of sm int 9:45a Storm, CITY DESIGNER-C w/o perforation or abscess w/o bleeding E03.9 Hypothyroidism, unspecified Office Visit 05/13/2019 Philippe Becerra M54.16 Radiculopathy, 10:15a Storm, CITY DESIGNER-C lumbar region Z23 Encounter for immunization Office Visit 03/30/2019 10:45a [facility] Harpal Castaneda, N76.0 Acute vaginitis M.D. E03.9 Hypothyroidism, unspecified Assessments Date Code Description Provider 09/23/2019 L65.9 Alopecia NITISH Gil-C 07/29/2019 K57.12 Diverticulitis of small intestine without ELEONORA GilP-C perforation or abscess without bleeding 07/29/2019 E03.9 Hypothyroidism, unspecified Dori Wilburn CITY DESIGNER-C 05/13/2019 M54.16 Radiculopathy, lumbar region ELEONORA GilP-C 05/13/2019 Z23 Encounter for immunization NITISH Gil-C 03/30/2019 N76.0 Acute vaginitis Harpal Castaneda M.D. 03/30/2019 E03.9 Hypothyroidism, unspecified Harpal Castaneda M.D. Plan of Treatment Future Appointment(s):11/04/2019 9:00 am - NITISH Gil-C at [facility]09/23/2019 - NITISH Gil-CL65.9 AlopeciaNew Medication :Rogaine Womens [...] to Reason for Referral Status Appt Date Loreta Nieves Referral to neurosurgery. MRI shows Scheduled 2019 arthritis, central canal narrowing and disc bulge at the L4 L54 level, this is overall worse than prior MRI. - - Please contact Pt to schedule appt. - - Please fax appointment date/time to [facility], [phone]. [address] [place] [address] [phone] Pain Clinic Referral to pain clinic for possible injections. MRI Scheduled 07/27/2019 scheduled. - - Please contact Pt to schedule appt. - - Please fax appointment date/time to [facility], [phone]. [address] [address] [phone]
--- OUTSIDE RECORDS SUMMARY | 2019-09-27 15:43 | XMS REPORT | Continuity of Care Document ---
:1960 External Reference #:[id number] Author Name Rosendo Ponce MD (transmitted by agent of provider Roosevelt Nicole) Address [address] [place] [id number] Care Team Providers Name Role Phone [facility] - Care Team Information Club Former [phone] Rehabilitation Jimenez Martinez DO - Emergency Medicine Care Team Information Club Former Blake Stout MD - Care Team Information Club Former [phone] Otolaryngology Dori Wilburn NP - Family Care Team Information Club Former [phone] Problems Active Problems Provider Date Asthma without [...] days for 25 years Smoking Status Reviewed: 08/12/19 Patient is a former Quit in January 2017, smoker smoked 1 pack every 2 days for 25 years Exercise Type/Frequency Exercises sporadically Walking Allergies, Adverse Reactions, Alerts Active Allergies Reaction Severity Comments Date Penicillin GI Upset 07/25/2015 Codeine Hives 07/25/2015 Aspirin Upsets stomach 03/26/2019 Inactive Allergies Penicillin 12/06/2016 Codeine 12/06/2016 Medications Active Medications SIG Qnty Indications Ordering Date Provider Ibuprofen 200 600mg by mouth as 42tabs Rosendo Dey 08/12/2019 200mg needed for pain MD Kris Tablets with breakfast and dinner meals Spiriva Respimat 2 puffs every day 3units Anila De La Cruz, 06/11/2017 2.5mcg/Act Aerosol Symbicort 2 puff twice a 3units J45.909 Anila De La Cruz, 12/27/2015 80-4.5mcg/Act day as needed Aerosol Levothyroxine Sodium 1 by mouth every Unknown day 75mcg Tablets Cpap at night Unknown Tramadol HCL 1-2 tablets by Unknown 50mg Tablets mouth every 6 hours as needed pain Colace 1 tab by mouth Unknown 100mg Capsules 2-3 times a day as needed Ativan 1 tab by mouth Unknown 0.5mg Tablets twice a day as needed for anxiety Tylenol 2 tablets every 4 Unknown 325mg Capsules hours as needed for pain Multi Vitamin 1 by mouth every Unknown Tablets day Biotin Pt unsure of Unknown 5mg Capsules dose, 1 tab daily History Medications Flagyl 1 tab by mouth [...] Older Vital Signs Date Vital Result Comment 08/12/2019 10:36am Weight 160.00 lb Heart Rate 80 /min Respiratory Rate 16 /min Body Temperature 98.3 F 08/04/2019 9:10am Weight 156.00 lb Heart Rate 76 /min Respiratory Rate 16 /min Body Temperature 97.7 F Results Test Acquired Date Facility Test Result H/L Range Note CBC Auto 07/27/2019 [facility] White Blood 7.8 10^3/uL Normal 3.5-10.[address] [place] [address] [phone] Red Blood Count 4.01 10^6/uL Normal 3.70-4.87 [...] Blood Cells % 0.0 Comp Metabolic 07/27/2019 [facility] Sodium 138 mmol/L Normal 135-[address] [place] [address] [phone] Potassium 4.3 mmol/L Normal 3.5-5.0 Chloride 109 [...] Egfr 161.9 >60 1 Laboratory test 07/27/2019 [facility] Phosphorus 3.6 mg/dL Normal 2.5-5.0 finding [address] [place] [address] [phone] Magnesium 1.8 mg/dL Low 1.9-2.7 TSH (Thyroid Stim Horm) 0.06 mcIU/mL Low 0.34-5.60 Comp Metabolic 07/20/2019 [facility] Sodium 137 mmol/L Normal 135-145 Panel [address] [place] [address] [phone] Potassium 3.9 mmol/L Normal 3.5-5.0 Chloride 108 [...] Egfr 174.4 >60 2 Laboratory test 07/20/2019 [facility] Phosphorus 3.6 mg/dL Normal 2.5-5.0 finding [address] [place] [address] [phone] Magnesium 1.8 mg/dL Low 1.9-2.7 CBC Auto 07/20/2019 [facility] White Blood 7.5 10^3/uL Normal 3.5-10.[address] [place] [address] [phone] Red Blood Count 3.78 10^6/uL Normal 3.70-4.87 [...] Blood Cells % 0.1 Comp Metabolic 07/13/2019 [facility] Sodium 138 mmol/L Normal 135-[address] [place] [address] [phone] Potassium 4.0 mmol/L Normal 3.5-5.0 Chloride 107 [...] Egfr 174.4 >60 3 Laboratory test 07/13/2019 [facility] Phosphorus 4.3 mg/dL Normal 2.5-5.[address] [place] [address] [phone] Magnesium 1.8 mg/dL Low 1.9-2.7 CBC Auto 07/13/2019 [facility] White Blood 7.4 10^3/uL Normal 3.5-10.[address] [place] [address] [phone] Red Blood Count 3.66 10^6/uL Low 3.70-4.87 [...] Blood Cells % 0.0 CBC Auto 07/06/2019 [facility] White Blood 10.5 10^3/uL Normal 3.5-10.[address] [place] [address] [phone] Red Blood Count 3.79 10^6/uL Normal 3.70-4.87 [...] Blood Cells % 0.0 Comp Metabolic 07/06/2019 [facility] Sodium 136 mmol/L Normal 135-[address] [place] [address] [phone] Potassium 4.3 mmol/L Normal 3.5-5.0 Chloride 107 [...] Egfr 165.9 >60 4 Laboratory test 07/06/2019 [facility] Phosphorus 3.9 mg/dL Normal 2.5-5.0 finding [address] [place] [address] [phone] Magnesium 2.0 mg/dL Normal 1.9-2.7 Comp Metabolic Panel 06/29/2019 [facility] Sodium 134 mmol/L Low 135-145 [address] [place] [address] [phone] Potassium 4.5 mmol/L Normal 3.5-5.0 Chloride 105 [...] Egfr 194.2 >60 5 Laboratory test 06/29/2019 [facility] Phosphorus 3.4 mg/dL Normal 2.5-5.0 finding [address] [place] [address] [phone] Magnesium 1.9 mg/dL Normal 1.9-2.7 CBC Auto 06/29/2019 [facility] White Blood 10.3 10^3/uL Normal 3.5-10.[address] [place] [address] [phone] Red Blood Count 3.61 10^6/uL Low 3.70-4.87 [...] Red Blood Cells % 0.0 Manual 06/29/2019 [facility] Immature 3.0 % Normal 0-[address] [place] [address] [phone] Neutrophil % 60.0 % Lymphocytes % 24.0 % Monocytes % 6.0 % Eosinophils % 3.0 % Basophil % 2.0 % Variant Lymph % 2.0 % Normal 0-6 Metamyelocytes % 1.0 % Normal 0-2 Myelocytes % 2.0 % High 0-1 RBC Morphology Normal Normal Anisocytosis 1+ CBC Auto 05/18/2019 [facility] White Blood 11.1 10^3/uL High 3.5-10.8 [address] [place] [address] [phone] Red Blood Count 4.95 10^6/uL High 3.70-4.87 [...] Blood Cells % 0.1 Comp Metabolic 05/18/2019 [facility] Sodium 137 mmol/L Normal 135-[address] [place] [address] [phone] Potassium 4.5 mmol/L Normal 3.5-5.0 Chloride 105 [...] dialysis) Procedures Date Code Description Status 07/17/2019 65885 EKG Tracing & Interpretation Completed 06/03/2019 79946 EKG, Interpretation Only Completed 06/02/2019 85324 ECHO Transthorasic Realtime 2D W Doppler & Color Flow Completed Hosp 06/02/2019 82981 EKG, Interpretation Only Completed 06/01/2019 17766 EKG, Interpretation Only Completed 05/29/2019 13154 EKG, Interpretation Only Completed 05/25/2019 06933 Laparoscopy,Colectomy,Partial Completed W/Anastomsis,W/Coloproctostomy 05/25/2019 81867 Injection Intravenous To Test Blood Flow In Flap Or Completed Graft 03/24/2019 93825 EKG, Interpretation Only Completed 03/18/2019 [id number] Colonoscopy Completed 02/23/2019 53623 Diffusing Capacity Completed 02/23/2019 50642 Plethysmography Determination Lung Volumes & Per Airway Completed Resist 02/23/2019 34079 Pulmonary Function><Bronchodil Completed 02/24/2015 [id number] Colonoscopy Completed Medical Devices Description No Information Available Encounters Type Date Location Provider Dx Diagnosis Office Visit 07/17/2019 [facility] Jorge Beach94.31 Abnormal 2:20p Of Helder Hinojosa DO electrocardiogram [ECG] FACC [EKG] I45.81 Long QT syndrome Office Visit 06/11/2019 [facility] Allyn Key, D72.829 Elevated white 2:07p Assana sharma M.D. blood cell Hospitalists count, unspecified K56.7 Ileus, unspecified E03.9 Hypothyroidism, unspecified J45.909 Unspecified asthma, uncomplicated G47.33 Obstructive sleep apnea (adult) (pediatric) Office Visit 06/09/2019 2:07p [facility] Luis A Coppola, R10.9 Unspecified [...] 06/04/2019 [facility] Rigoberto Hinojosa, J98.11 Atelectasis 11:54a M.DKeith D64.9 Anemia, unspecified E87.6 Hypokalemia E43 Unspecified severe protein-calorie malnutrition Office Visit 06/03/2019 [facility] For Romaine Gavin D72.829 Elevated white 11:54a Infectious Olivia Varela blood cell Diseases count, unspecified Office Visit 06/03/2019 [facility] Rigoberto Hinojosa, D72.829 Elevated white 11:53a M.DKeith blood cell count, unspecified R10.9 Unspecified abdominal pain Office [place]02[place]2019 [facility] R94.31 Abnormal 2:49p [facility] Of Olivia Argueta electrocardiogram [facility] [ECG] [EKG] Office Visit 06/02/2019 [facility] Romaine Gavin D72.829 Elevated white blood 11:52a For Infectious Avery, cell count, Diseases M.DKeith unspecified K91.89 Oth postprocedural complications and disorders of dgstv sys Office Visit 06/02/2019 11:53a [facility] Rigoberto Hinojosa, R10.9 Unspecified M.DKeith abdominal pain D72.829 Elevated white blood cell count, unspecified Office Visit 06/01/2019 11:29a [facility] Jorge Queen I45.81 Long QT syndrome Of [facility] DO Ashish [facility] Office Visit 05/31/2019 11:53a [facility] Rigoberto Hinojosa A41.9 Sepsis, M.D. unspecified organism E87.6 Hypokalemia Office Visit 05/30/2019 11:52a [facility] Rigoberto Hinojosa A41.9 Sepsis, unspecified M.D. organism K56.7 Ileus, unspecified E87.6 Hypokalemia Office Visit 05/29/2019 11:52a [facility] Tricia Cardoza1.9 MD Christy unspecified organism K56.7 Ileus, unspecified E83.51 Hypocalcemia Office Visit 04/03/2019 [facility] And Anila Z01.811 Encounter for 9:00a [facility] MD Jono preprocedural [facility] respiratory examination J45.909 Unspecified asthma, uncomplicated G47.33 Obstructive sleep apnea (adult) (pediatric) Office Visit 04/02/2019 10:30a Surgical Rosendo Dey K57.32 Dvtrcli of lg int [facility] Helder Ponce MD w/o perforation or abscess w/o bleeding Office Visit 03/26/2019 12:46p [facility] Kayla K57.32 Dvtrcli of lg int Assoc,pc O'caity, PA-C w/o perforation Hospitalists or abscess w/o bleeding Office Visit 03/25/2019 12:46p [facility] Kayla K57.32 Dvtrcli of lg int Assoc,pc O'caity, PA-C w/o perforation Hospitalists or abscess w/o bleeding J45.909 Unspecified asthma, uncomplicated Office Visit 03/24/2019 [facility] Kayla K57.32 Dvtrcli of lg int 12:45p Assoc,pc O'caity, PA-C w/o perforation Hospitalists or abscess w/o bleeding R07.9 Chest pain, unspecified J45.909 Unspecified asthma, uncomplicated Office Visit 03/24/2019 Surgical Rosendo Dey K57.30 Dvrtclos of lg 7:00a [facility] Helder Ponce MD int w/o perforation or abscess w/o bleeding Office Visit 03/23/2019 [facility] K57.32 Dvtrcli of lg int 12:45p Assoc,pc Vimal, TUFTING MACHINE OPERATOR w/o perforation Hospitalists or abscess w/o bleeding R11.0 Nausea E03.9 Hypothyroidism, unspecified Office Visit 03/23/2019 7:00a Surgical Rosendo Dey K57.30 Dvrtclos of lg [facility] Helder Ponce MD int w/o perforation or abscess w/o bleeding Office Visit 03/22/2019 12:45p [facility] Catia K57.32 Dvtrcli of lg int Assoc,pc Jerman, TUFTING MACHINE OPERATOR w/o perforation Hospitalists or abscess w/o bleeding [...] bleeding 07/17/2019 R94.31 Abnormal electrocardiogram [ECG] Jorge SKeith Hinojosa, DO FACC [EKG] 07/17/2019 I45.81 Long QT syndrome Jorge Bret Hinojosa, DO FACC 07/16/2019 K57.32 Diverticulitis of [...] (nontraumatic) 06/01/2019 I45.81 Long QT syndrome Jorge Bret Hinojosa, DO [facility] 06/01/2019 I45.81 Long QT syndrome Jorge Bret Hinojosa, DO [facility] 06/01/2019 K57.32 Diverticulitis of large intestine Osorio [...] M.D. 05/30/2019 K57.32 Diverticulitis of large intestine Jroge Luevano MD, FACS without perforation or abscess [...] 03/25/2019 K57.32 Diverticulitis of large intestine Kayla Mis'caity PA-C without perforation or abscess without bleeding 03/25/2019 J45.909 Unspecified asthma, uncomplicated Kayla O'caity, PA-C 03/24/2019 R00.1 Bradycardia, unspecified Niko Argueta M.D. 03/24/2019 K57.32 Diverticulitis of large intestine Kayla Mis'caity PA-C without perforation or abscess without bleeding 03/24/2019 R07.9 Chest pain, unspecified Kayla Guerra, PA-C 03/24/2019 J45.909 Unspecified asthma, uncomplicated Kayla Guerra, SANDYC 03/24/2019 K57.30 Diverticulosis of large intestine Rosendo Ponce MD without perforation or abscess without bleeding 03/23/2019 K57.32 Diverticulitis of large intestine Zandra Shortle, TUFTING MACHINE OPERATOR without perforation or abscess without bleeding 03/23/2019 R11.0 Nausea Zandra Shortle, TUFTING MACHINE OPERATOR 03/23/2019 K57.30 Diverticulosis of large intestine Rosendo Ponce MD without perforation or abscess without bleeding 03/23/2019 E03.9 Hypothyroidism, unspecified Zandra Shortle, TUFTING MACHINE OPERATOR 03/22/2019 K57.32 Diverticulitis of large intestine Catia Stoll, TUFTING MACHINE OPERATOR without perforation or abscess without bleeding 02/23/2019 J45.20 Mild intermittent asthma, Anila De La Cruz MD uncomplicated Plan of Treatment Future Appointment(s):01/08/2020 10:20 am - Jorge Hinojosa DO FACC at [facility]10/05/2019 9:00 am - Malissa Caicedo NP at [facility]08/12/2019 - Rosendo Ponce MDK57.32 Diverticulitis of large intestine without perforation or abscess without bleedingComments:Ibuprofen twice a day as needed for discomfort, referral to nutrition/dietitian for healthy eating education and maintenance of weightReferral:[facility] Functional Status Description No Information Available Mental Status Description No Information Available Referrals Refer to Dr Reason for Referral Status Appt Date [facility] nutritional education, maintain weight Created [address] [place] [address] [phone] Rosendo Ponce MD FOR 05/25/19 ---17618--- INPATIENT Created [address] [place] [address] [phone]
--- OUTSIDE RECORDS SUMMARY | 2019-09-27 15:43 | XMS REPORT | Continuity of Care Document ---
:1960 External Reference #:[id number] Author Name Rosendo Ponce MD (transmitted by agent of provider Roosevelt Nicole) Address [address] [place] [id number] Care Team Providers Name Role Phone [facility] - Care Team Information Refrigerated Cargo Clerk [phone] Rehabilitation Jimenez Martinez DO - Emergency Medicine Care Team Information Refrigerated Cargo Clerk [phone] Blake Stout MD - Care Team Information Refrigerated Cargo Clerk [phone] Otolaryngology Dori Wilburn NP - Family Care Team Information Refrigerated Cargo Clerk [phone] Problems Active Problems Provider Date Asthma without [...] Result H/L Range Note CBC Auto 07/27/2019 [facility] White Blood 7.8 10^3/uL Normal 3.5-10.[address] [place] [address] [phone] Red Blood Count 4.01 10^6/uL Normal 3.70-4.87 [...] Blood Cells % 0.0 Comp Metabolic 07/27/2019 [facility] Sodium 138 mmol/L Normal 135-[address] [place] [address] [phone] Potassium 4.3 mmol/L Normal 3.5-5.0 Chloride 109 [...] Egfr 161.9 >60 1 Laboratory test 07/27/2019 [facility] Phosphorus 3.6 mg/dL Normal 2.5-5.0 finding [address] [place] [address] [phone] Magnesium 1.8 mg/dL Low 1.9-2.7 TSH (Thyroid Stim Horm) 0.06 mcIU/mL Low 0.34-5.60 Comp Metabolic 07/20/2019 [facility] Sodium 137 mmol/L Normal 135-145 Panel [address] [place] [address] [phone] Potassium 3.9 mmol/L Normal 3.5-5.0 Chloride 108 [...] Egfr 174.4 >60 2 Laboratory test 07/20/2019 [facility] Phosphorus 3.6 mg/dL Normal 2.5-5.[address] [place] [address] [phone] Magnesium 1.8 mg/dL Low 1.9-2.7 CBC Auto 07/20/2019 [facility] White Blood 7.5 10^3/uL Normal 3.5-10.[address] [place] [address] [phone] Red Blood Count 3.78 10^6/uL Normal 3.70-4.87 [...] Blood Cells % 0.1 Comp Metabolic 07/13/2019 [facility] Sodium 138 mmol/L Normal 135-[address] [place] [address] [phone] Potassium 4.0 mmol/L Normal 3.5-5.0 Chloride 107 [...] Egfr 174.4 >60 3 Laboratory test 07/13/2019 [facility] Phosphorus 4.3 mg/dL Normal 2.5-5.[address] [place] [address] [phone] Magnesium 1.8 mg/dL Low 1.9-2.7 CBC Auto 07/13/2019 [facility] White Blood 7.4 10^3/uL Normal 3.5-10.[address] [place] [address] [phone] Red Blood Count 3.66 10^6/uL Low 3.70-4.87 [...] Blood Cells % 0.0 CBC Auto 07/06/2019 [facility] White Blood 10.5 10^3/uL Normal 3.5-10.[address] [place] [address] [phone] Red Blood Count 3.79 10^6/uL Normal 3.70-4.87 [...] Blood Cells % 0.0 Comp Metabolic 07/06/2019 [facility] Sodium 136 mmol/L Normal 135-[address] [place] [address] [phone] Potassium 4.3 mmol/L Normal 3.5-5.0 Chloride 107 [...] Egfr 165.9 >60 4 Laboratory test 07/06/2019 [facility] Phosphorus 3.9 mg/dL Normal 2.5-5.[address] [place] [address] [phone] Magnesium 2.0 mg/dL Normal 1.9-2.7 Comp Metabolic Panel 06/29/2019 [facility] Sodium 134 mmol/L Low 135-[address] [place] [address] [phone] Potassium 4.5 mmol/L Normal 3.5-5.0 Chloride 105 [...] Egfr 194.2 >60 5 Laboratory test 06/29/2019 [facility] Phosphorus 3.4 mg/dL Normal 2.5-5.0 finding [address] [place] [address] [phone] Magnesium 1.9 mg/dL Normal 1.9-2.7 CBC Auto 06/29/2019 [facility] White Blood 10.3 10^3/uL Normal 3.5-10.[address] [place] [address] [phone] Red Blood Count 3.61 10^6/uL Low 3.70-4.87 [...] Red Blood Cells % 0.0 Manual 06/29/2019 [facility] Immature 3.0 % Normal 0-[address] [place] [address] [phone] Neutrophil % 60.0 % Lymphocytes % 24.0 % Monocytes % 6.0 % Eosinophils % 3.0 % Basophil % 2.0 % Variant Lymph % 2.0 % Normal 0-6 Metamyelocytes % 1.0 % Normal 0-2 Myelocytes % 2.0 % High 0-1 RBC Morphology Normal Normal Anisocytosis 1+ CBC Auto 05/18/2019 [facility] White Blood 11.1 10^3/uL High 3.5-10.8 [address] [place] [address] [phone] Red Blood Count 4.95 10^6/uL High 3.70-4.87 [...] Blood Cells % 0.1 Comp Metabolic 05/18/2019 [facility] Sodium 137 mmol/L Normal 135-[address] [place] [address] [phone] Potassium 4.5 mmol/L Normal 3.5-5.0 Chloride 105 [...] dialysis) Procedures Date Code Description Status 07/17/2019 86900 EKG Tracing & Interpretation Completed 06/03/2019 87158 EKG, Interpretation Only Completed 06/02/2019 99880 ECHO Transthorasic Realtime 2D W Doppler & Color Flow Completed Hosp 06/02/2019 92815 EKG, Interpretation Only Completed 06/01/2019 41536 EKG, Interpretation Only Completed 05/29/2019 71698 EKG, Interpretation Only Completed 05/25/2019 87942 Laparoscopy,Colectomy,Partial Completed W/Anastomsis,W/Coloproctostomy 05/25/2019 49025 Injection Intravenous To Test Blood Flow In Flap Or Completed Graft 03/24/2019 74968 EKG, Interpretation Only Completed 03/18/2019 89403392 Colonoscopy Completed 02/24/2015 [id number] Colonoscopy Completed Medical Devices Description No Information Available Encounters Type Date Location Provider Dx Diagnosis Office Visit 08/27/2019 Surgical Rosendo Dey R10.813 Right lower quadrant 1:30p [facility] Kris abdominal tenderness Solderer Dipper Office Visit 07/17/2019 Robert Queen R94.31 Abnormal 2:20p Cardiology Of DO Ashish electrocardiogram [ECG] [facility] FACC [EKG] I45.81 Long QT syndrome Office Visit 06/11/2019 [facility] Allyn Key, D72.829 Elevated white 2:07p Assana sharma M.D. blood cell Hospitalists count, unspecified K56.7 Ileus, unspecified E03.9 Hypothyroidism, unspecified J45.909 Unspecified asthma, uncomplicated G47.33 Obstructive sleep apnea (adult) (pediatric) Office Visit 06/09/2019 2:07p [facility] Luis A Coppola, R10.9 Unspecified Assana sharma MD abdominal pain Hospitalists D72.829 Elevated white blood cell count, unspecified Office Visit 06/08/2019 [facility] Erica Agosto D72.829 Elevated white 11:23a For Infectious NANDO Kelly blood cell Diseases count, unspecified D47.3 Essential (hemorrhagic) thrombocythemia Office Visit 06/04/2019 [facility] Gloria Gavin D72.829 Elevated white 11:56a Infectious Olivia Varela blood cell Diseases count, unspecified Office Visit 06/04/2019 [facility] Rigoberto Hinojosa, J98.11 Atelectasis 11:54a M.D. D64.9 Anemia, unspecified E87.6 Hypokalemia E43 Unspecified severe protein-calorie malnutrition Office Visit 06/03/2019 11:53a [facility] Rigoberto Hinojosa, D72.829 Elevated white M.D. blood cell count, unspecified R10.9 Unspecified abdominal pain Office Visit 06/03/2019 [facility] For Romaine D. D72.829 Elevated white 11:54a Hugo Varela M.D. blood cell Diseases count, unspecified Office Visit 06/02/2019 [facility] Rigoberto Hinojosa, R10.9 Unspecified 11:53a M.D. abdominal pain D72.829 Elevated white blood cell count, unspecified Office Visit 06/02/2019 [facility] Romaine D. D72.829 Elevated white 11:52a For Hugo Varela M.D. blood cell count, Diseases unspecified K91.89 Ot postprocedural complications and disorders of dgstv sys Office Visit 06/02/2019 [facility] Niko Gavin R94.31 Abnormal 2:49p Of Helder Argueta M.D. electrocardiogram [ECG] [EKG] Office Visit 06/01/2019 [facility] Jorge Queen I45.81 Long QT syndrome 11:29a Of Helder Hinojosa DO [facility] Office Visit 05/31/2019 [facility] Rigoberto Hinojosa, A41.9 Sepsis, unspecified 11:53a MKeithDKeith organism E87.6 Hypokalemia Office Visit 05/30/2019 11:52a [facility] Rigoberto Hinojosa A41.9 Sepsis, unspecified M.D. organism K56.7 Ileus, unspecified E87.6 Hypokalemia Office Visit 05/29/2019 11:52a [facility] Megan Martinez A41.9 Christy , unspecified organism K56.7 Ileus, unspecified E83.51 Hypocalcemia Office Visit 04/03/2019 [facility] And Anila Z01.811 Encounter for 9:00a [facility] Jono preprocedural [facility] respiratory examination J45.909 Unspecified asthma, uncomplicated G47.33 Obstructive sleep apnea (adult) (pediatric) Office Visit 04/02/2019 10:30a Surgical Rosendo Dey K57.32 Dvtrcli of lg int [facility] Helder Ponce MD w/o perforation or abscess w/o bleeding Office Visit 03/26/2019 12:46p [facility] Kayla K57.32 Dvtrcli of lg int Assoc,pc O'caity, PA-C w/o perforation Hospitalists or abscess w/o bleeding Office Visit 03/25/2019 12:46p [facility] Kayla K57.32 Dvtrcli of lg int Assoc,pc O'caity, PA-C w/o perforation Hospitalists or abscess w/o bleeding J45.909 Unspecified asthma, uncomplicated [facility] K57.32 Dvtrcli of lg int 12:45p Assoc,pc O'caity, PA-C w/o perforation Hospitalists or abscess w/o bleeding R07.9 Chest pain, unspecified J45.909 Unspecified asthma, uncomplicated Office Visit 03/24/2019 Surgical Rosendo Dey K57.30 Dvrtclos of lg 7:00a [facility] Helder Ponce MD int w/o perforation or abscess w/o bleeding Office Visit 03/23/2019 [facility] K57.32 Dvtrcli of lg int 12:45p Assoc,pc Vimal, MACHINE HOOP MAKER w/o perforation Hospitalists or abscess w/o bleeding R11.0 Nausea E03.9 Hypothyroidism, unspecified Office Visit 03/23/2019 7:00a Surgical Rosendo Dey K57.30 Dvrtclos of lg [facility] Helder Ponce MD int w/o perforation or abscess w/o bleeding Office Visit 03/22/2019 12:45p [facility] K57.32 Dvtrcli of lg int Assoc,pc Jerman, MACHINE HOOP MAKER w/o perforation Hospitalists or abscess w/o bleeding Assessments Date Code Description Provider 08/27/2019 R10.813 Right lower quadrant abdominal Rosendo [...] without bleeding 06/08/2019 D47.3 Essential (hemorrhagic) Erica Kelly NP thrombocythemia 06/07/2019 K57.32 Diverticulitis of large intestine [...] I45.81 Long QT syndrome Jorge Hinojosa, DO [facility] 06/01/2019 I45.81 Long QT syndrome oJrge Hinojosa, DO [facility] 06/01/2019 K57.32 Diverticulitis of large intestine [...] 03/25/2019 K57.32 Diverticulitis of large intestine Kayla Guerra PA-C without perforation or abscess without bleeding 03/25/2019 J45.909 Unspecified asthma, uncomplicated Kayla Guerra PA-C 03/24/2019 R00.1 Bradycardia, unspecified Niko D. Brand, M.D. 03/24/2019 K57.32 Diverticulitis of large intestine Kayla Abebe'caity, PA-C without perforation or abscess without bleeding 03/24/2019 R07.9 Chest pain, unspecified Kayla O'caity, PA-C 03/24/2019 J45.909 Unspecified asthma, uncomplicated Kayla O'caity, PA-C 03/24/2019 K57.30 Diverticulosis of large intestine Rosendo Ponce MD without perforation or abscess without bleeding 03/23/2019 K57.32 Diverticulitis of large intestine Zandra Shortshona, MACHINE HOOP MAKER without perforation or abscess without bleeding 03/23/2019 R11.0 Nausea Zandra Shortle, MACHINE HOOP MAKER 03/23/2019 K57.30 Diverticulosis of large intestine Rosendo Ponce MD without perforation or abscess without bleeding 03/23/2019 E03.9 Hypothyroidism, unspecified Zandra Shortle, MACHINE HOOP MAKER 03/22/2019 K57.32 Diverticulitis of large intestine Catia Stoll NP without perforation or abscess without bleeding Plan of Treatment Future Appointment(s):10/26/2019 3:00 pm - Loreta Nieves MD at [facility]01/08/2020 10:20 am - Jorge Hinojosa DO FACC at [facility]10/05/2019 9:00 am - Malissa Caicedo NP at [facility]08/27/2019 - Rosendo Ponce, MDR10.813 Right lower quadrant abdominal tendernessComments:right groin pain, / ? muscle strain vs hip/lumbar, anti inflammatory medication and ice, fu in office Functional Status Description No Information Available Mental Status Description No Information Available Referrals Refer to Dr Reason for Referral Status Appt Date [facility] nutritional education, maintain weight Closed 05/2020 [address] [place] [address] [phone] Rosendo Ponce MD FOR 05/25/19 ---[id number]--- INPATIENT Created [address] [place] [address] [phone]
[2019-09-27 16:00] LABS: INR 1.29 (0.82-1.09)
[2019-09-27 16:11] LABS: Hematocrit 35 % (35-47); Hemoglobin 11.3 g/dL (12.0-16.0); Mean Corpuscular HGB Conc 32 g/dL (31-36); Mean Corpuscular Hemoglobin 23 pg (27-31); Mean Corpuscular Volume 73 fL (80-97); Mean Platelet Volume 8.7 fL (7.4-10.4); Platelet Count 329 10^3/uL (150-450); Red Blood Count 4.84 10^6 /uL (3.70-4.87); Red Cell Distribution Width 17 % (10-15); White Blood Count 18.1 10^3/uL (3.5-10.8)
[2019-09-27] MEDS ORDERED: Lorazepam PYXIS KEY ONE (16:15)
[2019-09-27] MEDS ORDERED: NS 0.9% 250 ML* 250 ML ONE (16:18)
[2019-09-27 16:31] LABS: ABS Basophils 0.1 10^3/ul (0-0.2); ABS Eosinophils 0.1 10^3/ul (0-0.6); ABS Lymphocytes 2.9 10^3/ul (1.0-4.8); ABS Monocytes 1.8 10^3/ul (0-0.8); ABS Neutrophils 13.3 10^3/ul (1.5-7.7); Eosinophil % 0.4 %
[2019-09-27] MEDS ORDERED: Ondansetron INJ* 2 MG/ML VIAL IV ONE ×2 (16:34→16:41)
[2019-09-27 16:47] LABS: Albumin 4.2 g/dL (3.2-5.2); Albumin/Globulin Ratio 1.1 (1-3); BUN/Creatinine Ratio 13.6 (8-20); C Reactive Protein 155.67 mg/L (<8.01); EGFR African American 112.1 (>60); EGFR Non-African American 92.6 (>60); Potassium 3.9 mmol/L (3.5-5.0); Total Bilirubin 1.1 mg/dL (0.2-1.0); Total Protein 8.2 g/dL (6.4-8.9)
[2019-09-27] MEDS ORDERED: Iohexol 300* (CONTRAST) 10 ML SDV IV ONE (17:22)
--- NOTE | 2019-09-27 17:31 | ED ---
Progress - Progress Note Progress Note: This patient is a 58 year old F presenting to ED with a chief complaint of lower abdominal fluid leakage through a surgical site since today. This patient is presented to me by LD Lema since the patient is leaking from an abdominal wound. Patient had a surgical repair of sigmoid resection after diverticulitis two months ago. Patient states she felt a mass on the right side of her abdomen getting larger in the past few days. Patient reports a fever. The patient rates the pain 6/10 in severity. The patient is comfortable, not in any distress. Normal vital signs. Spiking a fever and WBC count is elevated, so Liana has given antibiotics, IV fluids. We are waiting for the CT scan. Depending on CT findings we will contact surgery. Patient is hemodynamically stable. She will be referred back to Liana for further workup and management. Course/Dx - Course Course Of Treatment: This patient is a 58 year old F presenting to ED with a chief complaint of lower abdominal fluid leakage through a surgical site since today. This patient is presented to me by LD Lema since the patient is leaking from an abdominal wound. Patient had a surgical repair of sigmoid resection after diverticulitis two months ago. Patient states she felt a mass on the right side of her abdomen getting larger in the past few days. Patient reports a fever. The patient rates the pain 6/10 in severity. The patient is comfortable, not in any distress. Normal vital signs. Spiking a fever and WBC count is elevated, so Liana has given antibiotics, IV fluids. We are waiting for the CT scan. Depending on CT findings we will contact surgery. Patient is hemodynamically stable. She will be referred back to Liana for further workup and management. - Diagnoses Provider Diagnoses: Abdominal fluid collection Discharge ED - Sign-Out/Discharge Documenting (check all that apply): Sign-Out Patient Signing out patient TO: Liana Ovalle - Discharge Plan Condition: Fair Disposition: ADMITTED TO [facility] - Billing Disposition and Condition Condition: FAIR Disposition: Admitted to [facility] - Attestation Statements Document Initiated by Scribe: Yes Documenting Scribe: Saul Chowdhury Provider For Whom Scribe is Documenting (Include Credential): Croy Gomez MD Scribe Attestation: Saul Muhammad, scribed for Cory Gomez MD on 09/29/19 at 1141. Scribe Documentation Reviewed: Yes Provider Attestation: The documentation as recorded by the scribe, Saul Chowdhury accurately reflects the service I personally performed and the decisions made by me, Cory Gomez MD Status of Scribe Document: Viewed
--- NOTE | 2019-09-27 17:56 | ED ---
Progress - Progress Note Progress Note: This patient is a 58 year old F presenting to ED with a chief complaint of lower abdominal fluid leakage through a surgical site since today. This patient is presented to me by LD Lema since the patient is leaking from an abdominal wound. Patient had a surgical repair of sigmoid resection after diverticulitis two months ago. Patient states she felt a mass on the right side of her abdomen getting larger in the past few days. Patient reports a fever. The patient rates the pain 6/10 in severity. The patient is comfortable, not in any distress. Normal vital signs. Spiking a fever and WBC count is elevated, so Liana has given antibiotics, IV fluids. on further discussion with patient she states previous surgeries with love were on May 25. had wound vac that traveling nursing took care of. had a wound vac before for a "blood clot" in 2007 in [facility]. last appointment with dr aleman was three weeks ago. CT shows: IMPRESSION: 1. Fluid collection superior to the bladder measuring 3 x 3.5 cm. Adjacent to this there is an air pocket which communicates with the right lower quadrant surgical tract without an open wound. The fluid collection and an adjacent smaller collection anterior to the sigmoid are in close proximity to the colon and a fistula is a possibility. 2. Mild small bowel ileus. Course/Dx - Course Course Of Treatment: This patient is a 58 year old F presenting to ED with a chief complaint of lower abdominal fluid leakage through a surgical site since today. This patient is presented to me by LD Lema since the patient is leaking from an abdominal wound. Patient had a surgical repair of sigmoid resection after diverticulitis two months ago. Patient states she felt a mass on the right side of her abdomen getting larger in the past few days. Patient reports a fever. The patient rates the pain 6/10 in severity. The patient is comfortable, not in any distress. Normal vital signs. Spiking a fever and WBC count is elevated, so Liana has given antibiotics, IV fluids. CT scan shows fluid collection may be fistula. discussed with dr mejía who agrees to admit patient. - Diagnoses Provider Diagnoses: Abdominal fluid collection Discharge ED - Sign-Out/Discharge Documenting (check all that apply): Patient Departure, Receiving Sign-Out Receiving patient FROM: Liana Ovalle - Discharge Plan Condition: Fair Disposition: ADMITTED TO [facility] - Billing Disposition and Condition Condition: FAIR Disposition: Admitted to [facility]
[2019-09-27 18:54] LABS: Urine Appearance Clear; Urine Bilirubin Negative (Negative); Urine Blood Negative (Negative); Urine Color Straw; Urine Glucose Negative (Negative); Urine Ketones Negative (Negative); Urine Nitrite Negative (Negative); Urine Protein Negative (Negative); Urine Specific Gravity 1.004 (1.010-1.030); Urine Urobilinogen Negative (Negative)
[2019-09-27] MEDS ORDERED: NS 0.9% 1000 ML** 1,500 ML IV ONE (19:25)
--- NOTE | 2019-09-27 22:46 | PN ---
Progress Note - Progress Note Date of Service: 09/27/19 Note: Changing Cipro to cefepime which she has taken in the past ( recommended in ID note from 2018).
[2019-09-27] MEDS: Morphine INJ* 2 MG/ML 1 ML SYRINGE (TWO MG - NEW SYRINGE VERSION) IV PRN (22:48)
[2019-09-27] MEDS: NS 0.9% 1000 ML** 1,000 ML IV SCH (23:00)
[2019-09-27] MEDS: Cefepime 2 GM in Dextrose(*) 2 GM/50 ML BAG IV SCH (23:00)
--- NOTE | 2019-09-28 00:14 | HP ---
CC: Dori Wilburn NP * HISTORY AND PHYSICAL: DATE OF ADMISSION: 09/27/19 CHIEF COMPLAINT: Abdominal pain, right and left lower quadrants and abdominal wound drainage. HISTORY OF PRESENT ILLNESS: This is a 58-year-old female [facility], status post a robotic sigmoid colectomy in May 2019, complicated by an enterotomy for which she had been taken back to the operating room due to sepsis 4 days later. She has had prolonged recovery from that requiring wound care and VAC. She had apparently healed her wound by 08/01/19 and was followed as an outpatient by Dr. Ponce in the office. She reports she has seen him about 2 weeks ago. Since mid to late August she has been complaining about right lower quadrant abdominal pain, thought to be due to muscular strain. She was otherwise well until a couple of days ago when she noted loss of appetite, low grade fevers and chills and she developed left lower quadrant abdominal pain this afternoon. She was getting up to go for a walk and she felt liquid running down her leg. She noted that the midline wound had opened and was draining. She had presented then to the emergency room for evaluation. She underwent CT scan, which demonstrated an intraperitoneal collection 3 x 3.5 cm with a small amount of gas anterior to the collection and a subcutaneous pocket, which is connected with a smaller collection anterior to the sigmoid colon where previous drain had been noted. The subcutaneous pocket communicated to the right lower quadrant and she was also noted to have what appeared to be a small bowel ileus. Laboratory work revealed a leukocytosis of 18,000 and her CRP was 155. Based on this, a surgical admission was requested. PAST MEDICAL HISTORY: Significant for asthma, obstructive sleep apnea, hypothyroidism, sciatica. PAST SURGICAL HISTORY: Notable for section x3, hysterectomy via lower midline incision. She also had a laparotomy, lysis of adhesions, laparoscopic cholecystectomy, right foot surgery, bilateral shoulder surgery for rotator cuff , bilateral carpal tunnel release, right knee arthroscopy and the above- mentioned sigmoid colectomy and exploratory laparotomy. MEDICATIONS: 1. Levothyroxine 75 mg daily. 2. Spiriva 2.5 mcg 2 puffs b.i.d. 3. Symbicort 2 puffs b.i.d. p.r.n. 4. Colace. 5. MiraLAX. 6. Multivitamin. ALLERGIES: She reports CODEINE causes hives. FAMILY HISTORY: Significant for colorectal cancer in a brother, lung cancer in 2 brothers, lymphoma in another brother, half sister with diabetes, kidney cancer, heart disease. Father of myocardial infarction and mother of congestive heart failure. SOCIAL HISTORY: She is , with 2 children. She is unemployed. She has a 15- year smoking history, quit 3 years ago. She denies alcohol or drug use. REVIEW OF SYSTEMS: General: Fever and chills as reported above. No weight changes. Neuro: Denies strokes or seizures. Cardiac: She had a history of some rhythm abnormalities related to her previous hospitalization and she reports it was evaluated by Cardiology, felt secondary to medications and has not recurred. Denies hypertension, heart attack. Respiratory: As above. GI: As reported above. She has had some nausea, no vomiting. Denies constipation. : Reports normal urination. HOT BREAD BAKER: As above. Endocrine: As above. Denies diabetes. Musculoskeletal: Reports has back arthritis. PHYSICAL EXAMINATION GENERAL: She appears nontoxic, lying in the emergency room stretcher. VITAL SIGNS: Her temperature is 101.6, pulse of 91, respirations 18, O2 sat 97 , blood pressure is 131/76. Height 5 feet 3 inches, weight 159 pounds. HEENT: Head is normocephalic and atraumatic. Sclerae anicteric and mucous membranes moist. No otorrhea or rhinorrhea. NECK: Symmetrical and trachea is midline. LUNGS: Clear bilaterally without wheezes. HEART: Regular. S1, S2. ABDOMEN: Appears obese. There are multiple scars. There is midline wound, which is open and draining sanguinopurulent fluid. There is some mild erythema extending towards the right side over a patch approximately 10 cm across. She has prominent tenderness on the right lower quadrant greater than left. EXTREMITIES: Warm without cyanosis, clubbing, or edema. DIAGNOSTIC STUDIES/LAB DATA: WBC is 18.1, hemoglobin 11.3, hematocrit 35, platelets 329. No shift. Chemistries: Sodium 133, potassium 3.9, chloride 101 , bicarb 25, BUN 9, creatinine 0.66, glucose 101. Total bili 1.1, AST, ALT and alk phos were normal, CRP 155, albumin 4.2. Urinalysis: Negative. CT images were reviewed by me. Findings as reported above. IMPRESSION: A 58-year-old female with complicated past surgical history, now presenting with intraperitoneal collections with apparent spontaneous drainage through prior midline scar. PLAN/RECOMMENDATIONS: The patient will be admitted to the surgical service. She will be kept n.p.o. and she has already been started on IV antibiotics. We will provide IV pain meds and make arrangements for IR drainage in the morning. She may need surgical drainage if it is not amenable to IR drainage. We will ask for ID consult as they have seen her in the past and also from hospitalists given her complicated history. [id number]/[facility] #: [id number] ANGÉLICA
[2019-09-28] MEDS: Morphine INJ* 2 MG/ML 1 ML SYRINGE (TWO MG - NEW SYRINGE VERSION) IV PRN ×6 (01:08→09:17)
[2019-09-28] MEDS: metroNIDAZOLE IV 500 MG/100ML* 500 MG/100 ML BAG IVPB SCH ×3 (02:11→19:58)
[2019-09-28] MEDS ORDERED: Ciprofloxacin 400MG IVPREMIX(* 400 MG/200 ML BAG IVPB SCH (04:00)
[2019-09-28] MEDS: NS 0.9% 1000 ML** 1,000 ML IV SCH (08:00)
[2019-09-28] MEDS ORDERED: Dexamethasone IV* 4 MG/ML 1 ML (4 MG) IV SLOW PU ONE (08:30)
[2019-09-28] MEDS ORDERED: Buffered Lidocaine 1% SYRIN* 1 ML/SYRINGE INTRADERM ONE (08:30)
[2019-09-28] MEDS ORDERED: Ondansetron INJ* 2 MG/ML VIAL IV ONE (08:30)
[2019-09-28] MEDS ORDERED: Famotidine IV* 10 MG/ML 2 ML (20 mg) IV ONE (08:30)
[2019-09-28] MEDS ORDERED: Lactated Ringers 1000 ML Bag* 1,000 ML IV SCH (09:00)
[2019-09-28] MEDS ORDERED: Lorazepam PYXIS KEY PRN (09:23)
--- NOTE | 2019-09-28 09:37 | PN ---
Progress Note - Progress Note Date of Service: 09/28/19 SOAP: Subjective:Abdominal pain 02/28;weepy [] Objective: Vital Signs Temp 98.5 F 09/28/19 07:41 Pulse 83 09/28/19 07:41 Resp 16 09/28/19 09:17 BP 101/51 09/28/19 07:41 Pulse Ox 90 09/28/19 07:41 Intake & Output 09/27/19 09/28/19 09/28/19 18:59 06:59 18:59 Intake Total 1200 150 Output Total 680 Balance 1200 -530 Weight 159 lb 159 lb Intake: IV Fluids 1200 IVPB 150 ABX - CEFEPIME 50 ABX - FLAGYL 100 Oral 0 Output: Urine 680 Other: Estimated Void Large Small # Voids 100 1 lungs:clear bilat;heart:RRR;abd:obese,nondistended;few bs;midline wound,open and draining;erythema RLQ,very tender with guarding and fullness;ext:no edema, nontender [] Assessment:intraperitoneal collection,leukocytosis;draining abd wound [] Plan:IR drainage today possible OR later today Hospitalist cx for medical comanagement ID consult LYE MACHINE OPERATOR,NPO,IV abx []
[2019-09-28] MEDS ORDERED: Naloxone* 0.4 MG/ML 1 ML VIAL IV PUSH PRN (09:51)
[2019-09-28] MEDS: Ondansetron INJ* 2 MG/ML VIAL IV PRN ×2 (10:11→19:00)
[2019-09-28] MEDS: LORazepam INJ* 2 MG/ML 1 ML VIAL IV PUSH PRN ×2 (10:11→21:36)
[2019-09-28] MEDS ORDERED: Mometasone/Formoter 100/5 MDI INH PRN (10:45)
[2019-09-28] MEDS ORDERED: Levothyroxine INJ* 100 MCG/5 ML VIAL IV SCH (10:50)
[2019-09-28] MEDS: Cefepime 2 GM in Dextrose(*) 2 GM/50 ML BAG IV SCH ×2 (11:44→23:28)
--- NOTE | 2019-09-28 11:45 | PN ---
Hospitalist Progress Note Date of Service: 09/28/19 D/t the nature of the proposed procedure the pt has a Revised Cardiac Risk Index score of 1 point which equates to a class II risk, 6.0% 30-day risk of , DE, or cardiac arrest. She has no other identified contributing factors which would increase this risk at this time. She is otherwise optimized to proceed with surgery as indicated by her surgeon.
[2019-09-28] MEDS: Morphine PCA 5 MG/ML * Titrate per Protocol PCA SCH (12:00)
[2019-09-28] MEDS: Levothyroxine INJ* 100 MCG/5 ML VIAL IV SCH (12:45)
[2019-09-28] MEDS: SPIRIVA Respimat* (tiotropium) 2.5 mcg/inh Inhaler INH SCH (12:45)
[2019-09-28 13:06] LABS: ABS Basophils 0.1 10^3/ul (0-0.2); ABS Eosinophils 0.2 10^3/ul (0-0.6); ABS Lymphocytes 1.8 10^3/ul (1.0-4.8); ABS Monocytes 1.3 10^3/ul (0-0.8); ABS Neutrophils 9.7 10^3/ul (1.5-7.7); Eosinophil % 1.4 %; Hematocrit 30 % (35-47); Hemoglobin 9.5 g/dL (12.0-16.0); Lymphocyte % 13.7 %; Mean Corpuscular HGB Conc 32 g/dL (31-36); Mean Corpuscular Hemoglobin 24 pg (27-31); Mean Corpuscular Volume 74 fL (80-97); Mean Platelet Volume 8.4 fL (7.4-10.4); Platelet Count 275 10^3/uL (150-450); Red Blood Count 4.02 10^6 /uL (3.70-4.87); Red Cell Distribution Width 18 % (10-15)
[2019-09-28 13:16] LABS: Albumin 3.3 g/dL (3.2-5.2); Albumin/Globulin Ratio 1.1 (1-3); BUN/Creatinine Ratio 11.7 (8-20); Calcium 8.9 mg/dL (8.6-10.3); EGFR African American 125.1 (>60); EGFR Non-African American 103.4 (>60); Globulin 2.9 g/dL (2-4); Potassium 3.8 mmol/L (3.5-5.0); Total Bilirubin 0.7 mg/dL (0.2-1.0); Total Protein 6.2 g/dL (6.4-8.9)
--- NOTE | 2019-09-28 13:51 | CONS ---
CONSULTATION NOTE: DATE OF CONSULT: 09/28/19 REQUESTED BY: Megan Springer NP ATTENDING PHYSICIAN: Dr. Wilcox. REASON FOR CONSULT: Co-management of medical comorbidities. HISTORY OF PRESENT ILLNESS: Ms. Mendoza is a 58-year-old female with past medical history significant for diverticulitis, status post robotic sigmoid colectomy in May of 2019, with a complicated hospital stay; asthma; obstructive sleep apnea, with CPAP use; and hypothyroidism. It is noted that she did have a prior hospital stay from 05/25/19 to 06/26/19. On 05/25/19, she had a robotic sigmoid colectomy with extensive adhesiolysis with Dr. Ponce. This was later complicated by an enterotomy for which she was taken back to the operating room due to sepsis 4 days later. On 05/29/19, she had a laparotomy with drainage of fluid and oversew of small bowel enterotomy with wound VAC placement. She did have a stay in the ICU. She had 2 drains placed to her abdomen as well. By discharge , the wound VAC had been removed and 1 drain to the right side remained in place. She also had a PICC inserted and was started on TPN, which she continued at home. The patient was discharged on 06/26/19. She was followed by visiting nurse services at home. She reports having an appointment at the end of July with Dr. Ponce where she complained of right-sided abdominal pain for which it was thought at that time to potentially be some sort of muscular strain. She otherwise was feeling okay; however, over the last week, she did have increase in pain to her right lower quadrant. She states that starting yesterday she was feeling fever, chills, and had no appetite and had a temp of 100.3. Did have a mild headache yesterday. Had 1 episode of diarrhea, states normal in color. Denies any episodes of chest pain, shortness of breath , nausea, vomiting, palpitations, numbness or tingling, swelling. States she is urinating as usual. She presented to the emergency department yesterday on 09/27/19 with these complaints as well as noticing copious amounts of drainage coming from her lower abdomen and right-sided abdominal fullness. She states that the fullness to her right lower quadrant has been increasing at least over the last week. She states that she also felt significant left lower quadrant pain yesterday morning and that had subsided once she started having lower abdominal drainage. She denies any history of bleeding or clotting disorders. She denies any other recent hospitalizations or procedures or recent antibiotic use. While in the emergency department, she received 2.5 L of normal saline, vancomycin IV, ciprofloxacin IV, Flagyl IV as well as pain and antinausea medications. She was admitted to the short-stay surgical unit. While on the floor, she has been receiving IV fluids as well as IV antibiotics. She has been rather anxious and Surgery has ordered IV Ativan for her at this time. She has also been getting pain and nausea medications. Due to her complex hospital stay history as well as past medical history, Hospital Medicine has been asked to consult for co-management of medical comorbidities. PAST MEDICAL HISTORY: 1. Sigmoid diverticulitis. 2. Asthma. 3. VIKTOR, with CPAP. 4. Hypothyroidism. 5. Sciatica. PAST SURGICAL HISTORY: 1. Robotic sigmoid colectomy with extensive adhesiolysis on 05/25/19. 2. Laparotomy with drainage of fluid and oversew of small bowel enterotomy on 05/29/19. 3. C-sections x3. 4. Laparoscopic cholecystectomy. 5. Right foot surgery. 6. Bilateral shoulder surgeries. 7. Bilateral carpal tunnel surgeries. 8. Right knee arthroscopy. 9. Bilateral eye surgeries as a child. 10. Oophorectomy. 11. Appendectomy. HOME MEDICATIONS: 1. Levothyroxine 75 mcg p.o. daily. 2. Spiriva Respimat 2 puffs inhaled b.i.d. 3. Symbicort 80/4.5 two puffs b.i.d. p.r.n. 4. Colace 100 mg p.o. b.i.d. 5. MiraLAX 17 g p.o. daily. 6. Multivitamin 1 tab daily. 7. Zofran 4 mg p.o. q.6 hours p.r.n. 8. Lorazepam 0.5 mg p.o. q.6 hours p.r.n. 9. Ibuprofen 600 mg daily p.r.n. 10. Biotin 1 cap p.o. daily. ALLERGIES: 1. CODEINE. 2. PENICILLINS. 3. ASPIRIN. FAMILY HISTORY: Brother with colorectal cancer. Two brothers with lung cancer. Brother with lymphoma. Sister with diabetes mellitus, kidney cancer, and heart disease. Father with [place], . Mother with CHF, . SOCIAL HISTORY: The patient states that a surrogate decision maker for her would be her , Nav Mendoza. She quit smoking 3 years ago. She smoked approximately half a pack per day for 15 years. Denies any alcohol or illicit drug use. REVIEW OF SYSTEMS: A 12-point review of systems was completed with this patient. Please see HPI for all pertinent positives and negatives. PHYSICAL EXAM: Constitutional: The patient is lying in bed, guarded. Last vital signs: Temp 98.5, heart rate 83, BP 101/51, respiratory rate 18, O2 sat 97% on room air. HEENT: Normocephalic. No scleral icterus. Cardiovascular: Heart rate regular. S1, S2 present. No murmurs, rubs, or gallops noted. No JVD. Extremities: No edema. Pedal pulses present 2+ bilaterally. Respiratory: Lung sounds clear throughout bilaterally. Good airflow with normal respiratory effort. GI: Normoactive bowel sounds throughout. Moderate diffuse tenderness with increased tenderness to left lower quadrant with palpation and right lower quadrant with palpation. Small open area near the base of scar from prior midline incision with small amount of dark serosanguineous drainage noted to opening, moderate amount serosanguineous drainage noted on dressing, surrounding erythema extending into right lower quadrant with significant warmth throughout right and left lower quadrants. The patient did not tolerate palpation well. Skin: Other than area noted to GI assessment, skin appears dry and intact. Neuro: Alert and oriented. Psych: Rather emotional and appears moderately anxious at this time. DIAGNOSTIC STUDIES/LAB DATA: CT abdomen and pelvis with contrast, impression states fluid collection superior to the bladder measuring 3 x 3.5 cm. Adjacent to this, there is an air pocket which communicates with the right lower quadrant surgical tract without any open wound. The fluid collection and an adjacent smaller collection anterior to the sigmoid are in close proximity to the colon and a fistula is a possibility. Mild small bowel ileus. LAB DATA: WBC 18.1, RBC 4.84, hemoglobin 11.3, hematocrit 35, MCV 73, MCH 23, MCHC 32, RDW 17, platelet count 329, absolute neutrophils 13.3, absolute monocytes 1.8. INR 1.29. Sodium 133, potassium 3.9, chloride 101, carbon dioxide 25, anion gap 7, BUN 9, creatinine 0.66, estimated GFR 92.6, BUN/ creatinine ratio 13.6, glucose 101, calcium 10. Total bilirubin 1.10, AST 19, ALT 19, alk phosphatase 101. CRP 155.67. Total protein 8.2, albumin 4.2, globulin 4.0. UA showed a specific gravity of 1.004, otherwise unremarkable. ASSESSMENT AND PLAN: Ms. Mendoza is a 58-year-old female with a past medical history significant for sigmoid diverticulitis, multiple abdominal surgeries, sepsis with ICU stay in May 2019, asthma, obstructive sleep apnea, and hypothyroidism. She came to the emergency department on 09/27/19 and after imaging was noted to have a significant fluid collection within her abdominal cavity as well as meeting sepsis criteria. She was admitted to short-stay surgical unit per Surgery. Hospital Medicine was asked to consult for co- management of medical comorbidities. 1. Sepsis secondary to abdominal fluid collection. The patient was meeting sepsis criteria with WBC 18.1 as well as temp of 101.6 and mild elevations in heart rate. While in the emergency department, she was given IV fluid bolus as well as adequate antibiotic coverage. She has continued to receive maintenance IV fluids and antibiotic coverage. Her blood pressures have remained stable. Plan is for a drain to be placed later today in IR. She will likely be going to the OR later today with Dr. Burrell. Awaiting results of blood cultures. Awaiting results of wound culture taken in the ED. Continue IV antibiotics. Continue IV fluids. Continue pain and nausea medications. Continue to monitor. Labs to be drawn in the a.m. 2. Asthma. Does not appear to be exacerbated at this time. Continue usual asthma medications. 3. Obstructive sleep apnea. Chronic condition. The patient does not have her CPAP with her. A hospital CPAP machine has been ordered. 4. Hypothyroidism. The patient is n.p.o. at this time. We will order levothyroxine IV replacement at 50% of usual p.o. dosage. 5. FEN: Currently n.p.o. Continue IV fluids. 6. Code status: Full code. 7. DVT prophylaxis: Per Surgery, SCDs. 8. Disposition: SSU. Thank you for allowing us to participate in the care of this patient. We will follow during this admission. This plan has been discussed with my attending provider, Dr. Wilcox, and she agrees with this plan. JUANA BELL NP [id number]/[facility] #: [id number] ANGÉLICA
[2019-09-28] MEDS ORDERED: Midazolam* 1 MG/ML 2 ML VIAL (2 MG) ONE ×3 (14:59→15:34)
[2019-09-28] MEDS ORDERED: fentaNYL* 50 MCG/ML 2 ML VIAL (100 MCG VIAL) ONE ×2 (14:59→15:29)
--- NOTE | 2019-09-28 15:31 | CONS ---
CONSULTATION REPORT: DATE OF CONSULT: 09/28/19 PRIMARY CARE PROVIDER: Dori Wilburn NP. PROVIDER REQUESTING CONSULTATION: Lissy Springer NP. CONSULTING SERVICE: Infectious Disease. PROVIDER: Olga Kelly NP. ATTENDING PROVIDER: Dr. Romaine Mckinney.* (DICTATED BY OLGA KELLY NP) REASON FOR CONSULT: Abdominal fluid collection, suspected abdominal abscess. IMPRESSION: 1. Abdominal abscess, status post sigmoid colectomy in May 2019 for recurrent sigmoid diverticulitis. While in the hospital in May she was found to have an intraabsominal infection/fluid collection and underwent an exploratory laparotomy and drainage of fluids with oversew of small bowel enterotomy. CT findings with a fluid collection superior to the bladder and air pocket with surgical tract without an open wound. Surgery is currently trying to organize IR drainage of this and possible drain placement of this fluid collection. She is noted to have leukocytosis, intermittent fevers. She continues to have abdominal pain. 2. Obstructive sleep apnea. RECOMMENDATIONS/PLAN: Recommend continuing cefepime and Flagyl for now while we await culture of the fluid collection after either surgical drainage versus IR drainage. We will continue to follow along. The patient will likely need an extended course of IV antibiotics in the setting of an abdominal abscess. HISTORY OF PRESENT ILLNESS: Ms. Mendoza is a 58-year-old female with past medical history significant for asthma, obstructive sleep apnea, hypothyroidism , sciatica, who previously underwent sigmoid colectomy with Dr. Ponce on for recurrent diverticulitis. She states that she had been doing well postoperatively, but had noticed "lump on the right side of her abdomen." She had discussed this with Surgery and was planning to have a followup appointment. She states while ambulating, her lower midline abdominal incision opened up, draining fluid. She states that she was having fevers and chills yesterday. Due to her abdominal incision opening up, she presented to the emergency room for further evaluation. While in the emergency room, she had an abdomen and pelvis CT showing a fluid collection superior to the bladder measuring 3 x 3.5 cm with an air pocket with surgical tract without an open wound. She was noted to be febrile with a temperature up to 101.6 and labs showing leukocytosis with a white blood cell count of 18.1, CRP of 155.67. She had a negative urinalysis. The abdominal wound was cultured, it is positive for gram-positive cocci, but is negative for MRSA and Staph aureus. She was admitted for IV antibiotics and drainage of suspected abscess. While in the hospital, she has been afebrile. She continues to have abdominal discomfort. She is waiting either surgical drainage of the fluid collection versus radiology drainage and drain placement. Denies any fevers or chills today. Denies any joint pain, muscle pain, nausea, vomiting, diarrhea, constipation, urinary symptoms, rash, or recent travel. PAST MEDICAL HISTORY: 1. Asthma. 2. Obstructive sleep apnea. 3. Hypothyroidism. 4. Sciatica. 5. Recurrent sigmoid diverticulitis. PAST SURGICAL HISTORY: 1. Status post section x3. 2. Status post hysterectomy. 3. Status post exploratory laparotomy with lysis of adhesions. 4. Status post lap albina. 5. Status post right foot surgery. 6. Status post bilateral shoulder rotator cuff repairs. 7. Status post bilateral carpal tunnel repair. 8. Status post right knee arthroscopy. 9. Status post sigmoid colectomy on 05/25/19. 10. Status post exploratory laparotomy and drainage of fluids with oversew of small bowel enterotomy 05/29/2019. MEDICATIONS: Home medications: 1. Zofran 4 mg by mouth every 6 hours as needed for nausea. 2. Multivitamin 1 tablet by mouth daily. 3. Ibuprofen 600 mg by mouth daily as needed for pain. 4. Colace 100 mg by mouth twice daily. 5. Biotin 1 tablet by mouth daily. 6. Spiriva Respimat 2 puffs inhalation every morning. 7. Levothyroxine 75 mcg by mouth daily. 8. Lorazepam 0.5 mg by mouth every 6 hours as needed for anxiety or insomnia. 9. Symbicort 80/4.5 two puffs inhalation twice daily as needed for wheezing. Hospital medications: 1. Acetaminophen 650 mg by mouth every 4 hours as needed for fever or pain. 2. Cefepime 2 g IV every 12 hours. 3. Levothyroxine 37.5 mcg IV daily. 4. Lorazepam 0.5 mg IV push every 6 hours as needed for anxiety. 5. Flagyl 500 mg IV every 8 hours. 6. Dulera 100/5 two puffs inhalation twice daily as needed for wheezing. 7. Morphine sulfate SEAFOOD TECHNOLOGY SPECIALIST. 8. Naloxone 0.08 mg IV push every 2 minutes as needed for respiratory rate less than 8 or unresponsiveness. 9. Zofran 4 mg IV every 6 hours as needed. 10. Sodium chloride 150 mL intravenously an hour. 11. Spiriva Respimat 2.5 mcg 2 puffs inhalation every morning. ALLERGIES: 1. CODEINE and PENICILLIN caused hives. 2. ASPIRIN. FAMILY HISTORY: Denies family history of recurrent or resistant infections. Half sister with a history of heart disease. Father passed from an [place]. Brother is with heart disease and mother with a history of heart disease. Half sister with diabetes. Brother with colon cancer. Two brothers with bone cancer. A brother with lymphoma, and a half sister with renal carcinoma. SOCIAL HISTORY: Denies alcohol or recreational drug use. She is a former smoker, quitting 3 years ago. Prior to that, she had a 15-year smoking history. REVIEW OF SYSTEMS: I performed a 10-point review of systems. All the pertinent positives and negatives are mentioned in the history of present illness. The remaining review of systems are negative. PHYSICAL EXAM: Vital Signs: Temperature 98.5, heart rate 83, respiratory rate 18, O2 sat 90% on room air, blood pressure 101/51. General Appearance: Appears to be in no acute distress. Head: Normocephalic, atraumatic. EENT: Extraocular movements are intact. No subconjunctival hemorrhage. Moist mucous membranes. Neck: Supple. No lymphadenopathy. Neurological: Alert and oriented. Cranial nerves II through XII are grossly intact. Cardiovascular: Regular rate and rhythm. S1, S2 present. No murmurs, rubs, or gallops heard. Respiratory: No accessory muscle use. Lungs are clear to auscultation. Abdomen: Bowel sounds present. Abdomen is soft, tender on the right side and large. Extremities: No lower extremity edema. Musculoskeletal: No clubbing or cyanosis noted. Exhibits good strength in all extremities. Psychological: Calm and cooperative. Skin: No rashes or abnormalities seen other than a dressing over her open incision to the midline abdomen. DIAGNOSTIC STUDIES/LAB DATA: Sodium 133, potassium 3.9, chloride 101, CO2 25, BUN 9, creatinine 0.66, glucose 101. White blood cell count 18.1, hemoglobin 11.3, hematocrit 35, platelet count 329. UA negative. Wound culture with 4+ neutrophils, 1+ epithelial cells, 3+ gram-positive cocci, negative PCR for MRSA and MSSA. Please see impression and recommendations outlined above, recommendations have been discussed with Lissy Springer NP. Thank you for asking us to see Ms. Mendoza in consultation. The case has been discussed with my attending Dr. Romaine Mckinney, who agrees with the plan of care. Reviewed by GELACIO KRAMER 10/04/19 [id number]/[facility] #: [id number] MTDRamona
--- NOTE | 2019-09-28 17:50 | PN ---
Progress Note - Progress Note Date of Service: 09/28/19 Note: I was present for IR drainage procedure today with Dr. Henson Discussed findings and reviewed films with him Catheter successfully passed through RLQ abdominal wall air collection into abdominal abscess superior to the bladder with drainage of 40 cc's of creamy pus -cultures sent. Second midline abdominal wall collection of air (appears to have spontaneously drained though midline opening) and is in continuity with the above collection and appears to be adequately drained-wound packing placed into this cavity. I don't feel there is need for surgical drainage at this point. Results discussed with patient just now. Will continue IV abx Await cultures Catheter drainage Further radiologic studies to determine source of fistula planned Clear liquids po for now.
--- NOTE | 2019-09-28 19:20 | BRIEFOPN ---
Brief Operative/Procedure Note - Operation Details Pre-Op Diagnosis: Peritoneal abscess with two percutaneous fistula tracts. Post-Op Diagnosis: Same Procedures: 1. US and fluoroscopy guided RLQ subcutaneous fistula access with 10 [place] pigtail drain placement through the right lower quadrant fistula into the peritoneal abscess. 2. "Wet to dry" sterile gauze packing to the draining midline fistula tract. Surgeon(s)/Proceduralists: Ish Henson MD Anesthesia: Conscious sedation and local lidocaine Estimated Blood Loss: Minimal Findings: Corresponding to recent CT imaging, there is a midline superficial peritoneal abscess with fistulous communications through the right lower quadrant subcutaneous fat and also a fistulous communication to a superficial midline abdominal wall abscess. Specimen(s)/Culture(s) Description: 30 mL of purulent fluid draining from the abscess and sent to the laboratory. Complications: None
[2019-09-29] MEDS: NS 0.9% 1000 ML** 1,000 ML IV SCH ×2 (00:20→09:37)
[2019-09-29] MEDS: metroNIDAZOLE IV 500 MG/100ML* 500 MG/100 ML BAG IVPB SCH ×3 (01:57→17:46)
[2019-09-29] MEDS: LORazepam INJ* 2 MG/ML 1 ML VIAL IV PUSH PRN ×3 (03:43→17:06)
[2019-09-29] MEDS: Levothyroxine INJ* 100 MCG/5 ML VIAL IV SCH (05:56)
[2019-09-29 06:11] LABS: Hematocrit 27 % (35-47); Hemoglobin 8.7 g/dL (12.0-16.0); Mean Corpuscular HGB Conc 32 g/dL (31-36); Mean Corpuscular Hemoglobin 24 pg (27-31); Mean Corpuscular Volume 73 fL (80-97); Mean Platelet Volume 8.8 fL (7.4-10.4); Platelet Count 262 10^3/uL (150-450); Red Blood Count 3.68 10^6 /uL (3.70-4.87); Red Cell Distribution Width 17 % (10-15); White Blood Count 12.6 10^3/uL (3.5-10.8)
[2019-09-29] MEDS: Ondansetron INJ* 2 MG/ML VIAL IV PRN (09:25)
--- NOTE | 2019-09-29 09:35 | PN ---
Progress Note - Progress Note Date of Service: 09/29/19 SOAP: Subjective: CC: Abdominal Abscess. HPI: Ms. Mendoza is a 58 yo female with PMH significant for asthma, VIKTOR, hypothyroidism, sciatica, and recurrent sigmoid diverticulitis s/p sigmoid colectomy; who presented to the emergency room after her midline ABD incision opened up. Denies fever, chills, vomiting, or diarrhea. She reports feeling "hot " a little while ago and nausea. She continues to have right sided ABD pain. Objective: Vital Signs 09/29/19 09/29/19 05:22 07:49 Temperature 98.2 F 98.5 F Pulse Rate 77 70 Respiratory 18 16 Rate Blood Pressure 100/53 109/54 (mmHg) O2 Sat by Pulse 95 98 Oximetry Physical Exam: General: NAD, laying in bed Neurological: Alert and Oriented HEENT: Moist MM Cardiovascular: Heart rate regular Respiratory: Lung sounds clear Abdominal: Bowel sounds present; ABD soft, non tender and non distended. Pigtail drain to right side of ABD with bloody drainage Skin: No rash Laboratory Results - last 24 hr 09/28/19 09/28/19 09/29/19 12:49 12:49 05:39 WBC 13.0 H 12.6 H RBC 4.02 3.68 L Hgb 9.5 L 8.7 L Hct 30 L 27 L MCV 74 L 73 L MCH 24 L 24 L MCHC 32 32 RDW 18 H 17 H Plt Count 275 262 MPV 8.4 8.8 Neut % (Auto) 74.7 Lymph % (Auto) 13.7 [place] % (Auto) 9.7 Eos % (Auto) 1.4 Baso % (Auto) 0.5 Absolute Neuts (auto) 9.7 H Absolute Lymphs (auto) 1.8 Absolute Monos (auto) 1.3 H Absolute Eos (auto) 0.2 Absolute Basos (auto) 0.1 Absolute Nucleated RBC 0.0 Nucleated RBC % 0.0 Sodium 136 Potassium 3.8 Chloride 108 Carbon Dioxide 24 Anion Gap 4 BUN 7 Creatinine 0.60 Est GFR ( Amer) 125.1 Est GFR (Non-Af Amer) 103.4 BUN/Creatinine Ratio 11.7 Glucose 97 Calcium 8.9 Total Bilirubin 0.70 AST 12 L ALT 13 Alkaline Phosphatase 75 Total Protein 6.2 L Albumin 3.3 Globulin 2.9 Albumin/Globulin Ratio 1.1 Microbiology 09/28/19 16:22 Sterile Body Fluid Culture - Preliminary Misc Fluid (See Comment) - Abdominal Sterile Body Fluid Culture - Preliminary Skin and Soft Tissue MRSA/MSSA (PCR - Final Mrsa Negative S.aureus Negative 09/28/19 16:22 Gram Stain - Final Body Fluid - Abdominal 09/27/19 15:59 Aerobic Blood Culture - Preliminary Blood Venous No Growth Day 1 Anaerobic Blood Culture - Preliminary No Growth Day 1 09/27/19 15:37 Aerobic Blood Culture - Preliminary Blood Venous No Growth Day 1 Anaerobic Blood Culture - Preliminary No Growth Day 1 09/27/19 20:43 Nasal Screen MRSA (PCR) - Final Nasal Mrsa Not Detected 09/27/19 16:34 Skin and Soft Tissue MRSA/MSSA (PCR - Final Abdomen Mrsa Negative S.aureus Negative Gram Stain - Final Assessment: 1. Abdominal abscess. S/P sigmoid colectomy in May 2019. CT scan with fluid collection superior to the bladder and air pocket with surgical tract without open wound. Continues to have right sided ABD pain. Afebrile since admission, last fever was 2 days ago. Leukocytosis is improving. ABD wound culture with gram + cocci, PCR negative for MRSA and MSSA, final culture results pending. Blood cultures with no growth on day 1. S/P pigtail drain placement yesterday, fluid culture with gram + cocci, PCR negative for MRSA and MSSA, final culture results pending. 2. VIKTOR. Plan: Continue cefepime and flagyl while we await final fluid cultures. She will likely require an extended course of IV ABX in the setting of an abdominal abscess.
[2019-09-29] MEDS: Acetaminophen TAB* 325 MG PO PRN (09:37)
[2019-09-29] MEDS: SPIRIVA Respimat* (tiotropium) 2.5 mcg/inh Inhaler INH SCH (10:37)
[2019-09-29] MEDS: Cefepime 2 GM in Dextrose(*) 2 GM/50 ML BAG IV SCH ×2 (12:25→23:10)
--- NOTE | 2019-09-29 14:11 | PN ---
Progress Note - Progress Note Date of Service: 09/29/19 Note: Surgery Progress: S: Day #1 s/p IR drainage of intra-abd collection. Feels somewhat better today. Less pain. No N/V. Ambulating. O: Vital Signs - 8 hr 09/29/19 09/29/19 09/29/19 07:00 07:49 09:00 Temperature 98.5 F Pulse Rate 70 Respiratory 16 16 16 Rate Blood Pressure 109/54 (mmHg) O2 Sat by Pulse 94 98 95 Oximetry 09/29/19 09/29/19 09/29/19 09:30 09:49 11:24 Temperature 97.4 F Pulse Rate 85 Respiratory 16 16 17 Rate Blood Pressure 101/53 (mmHg) O2 Sat by Pulse 95 Oximetry Intake and Output Last 24 Hours 09/27/19 09/28/19 09/29/19 09/30/19 06:59 06:59 06:59 06:59 Intake Total 1350 1475 1218 Output Total 680 1485 630 Balance 670 -10 588 Weight 159 lb 159 lb Intake: IV Fluids 1200 980 993 NS (0.9%) 980 993 IVPB 150 55 105 ABX - CEFEPIME 50 55 ABX - FLAGYL 100 105 Oral 0 440 120 Output: Pigtail Drain 85 30 Urine 680 1400 600 Other: Estimated Void Large Medium # Bowel Movements 1 Estimated Stool Amount Medium # Voids 100 2 Abd: no sig erythema; perc drain exiting to the right, with light sang drainage in bag. Serosang drainage on packing from lower midline wound. Soft, with small area of induration right lateral abd (which she states is less vs yesterday). Lower midline wound repacked and dressed; ambika'd well. Extr: no edema or calf tenderness Labs: Laboratory Tests 09/29/19 05:39 WBC 12.6 H Hgb 8.7 L Hct 27 L C&S: gram + cocci; full ID pend A: s/p IR drainage of intra-abd (suprapubic) collection, with improvement ( concern for fistula) P: cont current IV abx (cefipime and Flagyl) pend C&S; wound care.
[2019-09-29] MEDS ORDERED: Ondansetron ODT TAB* 4 MG ONE (15:53)
[2019-09-29] MEDS: Ondansetron ODT TAB* 4 MG SL PRN (15:54)
[2019-09-30] MEDS: Ondansetron INJ* 2 MG/ML VIAL IV PRN ×2 (00:28→06:28)
[2019-09-30] MEDS: NS 0.9% 1000 ML** 1,000 ML IV SCH ×3 (00:28→16:42)
[2019-09-30] MEDS: LORazepam INJ* 2 MG/ML 1 ML VIAL IV PUSH PRN ×4 (00:41→21:03)
[2019-09-30] MEDS: metroNIDAZOLE IV 500 MG/100ML* 500 MG/100 ML BAG IVPB SCH ×3 (01:54→17:29)
[2019-09-30] MEDS: Levothyroxine INJ* 100 MCG/5 ML VIAL IV SCH (06:11)
[2019-09-30] MEDS: SPIRIVA Respimat* (tiotropium) 2.5 mcg/inh Inhaler INH SCH (07:50)
[2019-09-30] MEDS ORDERED: Scopolamine 1.5 mg* PATCH ONE (08:32)
--- NOTE | 2019-09-30 08:57 | PN ---
Progress Note - Progress Note Date of Service: 09/30/19 SOAP: Subjective: []nausea, passing flatus, bm Objective: []culture klebsiella, strep anginosus Temp Pulse Resp BP Pulse Ox 97.4 F 66 16 99/51 97 09/30/19 08:09 09/30/19 08:09 09/30/19 08:39 09/30/19 08:09 09/30/19 08:09 Intake & Output 09/28/19 09/29/19 09/30/19 10/01/19 06:59 06:59 06:59 06:59 Intake Total 1350 1475 2895 Output Total 680 1485 2320 Balance 670 -10 575 Weight 159 lb 159 lb Intake: IV Fluids 8192 837 6109 NS (0.9%) 980 1970 IVPB 150 55 265 ABX - CEFEPIME 50 55 55 ABX - FLAGYL 100 210 Oral 0 440 660 Output: Pigtail Drain 85 70 Urine 680 1400 2250 Other: Estimated Void Large Medium # Bowel Movements 1 Estimated Stool Amount Medium # Voids 100 2 abdomen soft drain-scant yellow Assessment: []minimal drainage intra abdominal abscess, ? fistula Plan: []iv abx to cover culture npo/tpn for now
[2019-09-30] MEDS ORDERED: Scopolamine 1.5 mg* PATCH TRANSDERM ONE (09:00)
[2019-09-30 10:52] LABS: BUN/Creatinine Ratio 6.4 (8-20); Calcium 8.5 mg/dL (8.6-10.3); EGFR African American 165.9 (>60); EGFR Non-African American 137.1 (>60); Potassium 3.3 mmol/L (3.5-5.0)
[2019-09-30] MEDS: Cefepime 2 GM in Dextrose(*) 2 GM/50 ML BAG IV SCH ×2 (11:49→23:10)
[2019-09-30 11:59] LABS: ABS Basophils 0.1 10^3/ul (0-0.2); ABS Eosinophils 0.3 10^3/ul (0-0.6); ABS Lymphocytes 1.5 10^3/ul (1.0-4.8); ABS Monocytes 0.7 10^3/ul (0-0.8); ABS Neutrophils 6.6 10^3/ul (1.5-7.7); Hematocrit 28 % (35-47); Hemoglobin 8.8 g/dL (12.0-16.0); Lymphocyte % 16.4 %; Mean Corpuscular HGB Conc 32 g/dL (31-36); Mean Corpuscular Hemoglobin 24 pg (27-31); Mean Corpuscular Volume 74 fL (80-97); Mean Platelet Volume 8.9 fL (7.4-10.4); Nucleated Red Blood Cells % 0.1; Platelet Count 285 10^3/uL (150-450); Red Blood Count 3.74 10^6 /uL (3.70-4.87); Red Cell Distribution Width 17 % (10-15); White Blood Count 9.1 10^3/uL (3.5-10.8)
[2019-09-30 12:19] LABS: Albumin 3.1 g/dL (3.2-5.2); Albumin/Globulin Ratio 1.1 (1-3); BUN/Creatinine Ratio 6.5 (8-20); Calcium 8.5 mg/dL (8.6-10.3); EGFR Non-African American 140.5 (>60); Globulin 2.8 g/dL (2-4); Magnesium 1.6 mg/dL (1.9-2.7); Potassium 3.3 mmol/L (3.5-5.0); Total Bilirubin 0.3 mg/dL (0.2-1.0); Total Protein 5.9 g/dL (6.4-8.9)
[2019-09-30] MEDS: Benzocaine/Menthol LOZ* 1 LOZENGE PO PRN ×2 (14:52→17:11)
[2019-09-30] MEDS: TPN CENTRAL STANDARD BASE A CENTR SCH ×12 (17:03)
--- NOTE | 2019-09-30 18:33 | PN ---
Subjective Date of Service: 09/30/19 Interval History: Lying in bed on assessment. 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 Reports occasional nausea and is receiving Zofran. Reports BM yesterday and passing flatus. Denies cp, sob, palpitations, fever, chills. Oxy mask on patient chest. RN reports patient using O2 occasionally because of her VIKTOR and she is getting sleepy from pain medications. Reports she is also a mouth breather Objective Active Medications: Acetaminophen (Tylenol Tab*) 650 mg PO Q4H PRN PRN Reason: MILD PAIN or TEMP > 100.4 Last Admin: 09/29/19 09:37 Dose: 650 mg Heparin Sodium (Porcine) (Heparin Flush Picc/Ml/Cvc(*)) 1 - 3 ml FLUSH 0600, 1800 [facility]; Protocol Last Admin: 09/30/19 17:28 Dose: Not Given Sodium Chloride (Ns 0.9% 1000 Ml) 1,000 mls @ 150 mls/hr IV PER RATE [facility] Last Admin: 09/30/19 16:42 Dose: 150 mls/hr Metronidazole/Sodium Chloride (Flagyl 500 Mg Ivpb*) 500 mg in 100 mls @ 100 mls /hr IVPB Q8H [facility] Last Admin: 09/30/19 17:29 Dose: 100 mls/hr Cefepime HCl (Maxipime 2 Gm In Dextrose Duplex (*)) 2 gm in 50 mls @ 100 mls/ hr IV Q12H [facility] Last Admin: 09/30/19 11:49 Dose: 100 mls/hr Morphine Sulfate (Morphine Information Systems Analyst Adult* 5 Mg/Ml) 30 mls @ 0 mls/hr [employer] TE[employer] .change Q24H [facility]; Protocol Last Admin: 09/28/19 12:00 Dose: 2 mls/hr Dextrose 500 ml/ Amino Acids 850 ml/ Sterile Water 150 ml/Fat Emulsion Intravenous 250 ml/ Sodium Chloride 100 meq/Potassium Chloride 50 meq/Potassium Phosphate 20 mmole/Calcium Gluconate 10 meq/Magnesium Sulfate 20 meq/ Multivitamins 10 ml/ Trace Metals 1 ml/ Nutrition ( Parenteral) 1,844.0978 mls @ 76.837 mls/hr CENTR 1700 [facility]; Protocol Last Admin: 09/30/19 17:03 Dose: 76.837 mls/hr Levothyroxine Sodium (Synthroid Inj*) 37.5 mcg IV 0600 [facility] Last Admin: 09/30/19 06:11 Dose: 37.5 mcg Lorazepam (Ativan Inj*) 0.5 mg IV PUSH Q6H PRN PRN Reason: ANXIETY Last Admin: 09/30/19 14:40 Dose: 0.5 mg Miscellaneous (Ativan Pyxis [place]) 1 ea N/A .ATIVAN IV PERRY PRN PRN Reason: PYXIS PERRY Mometasone Furoate/Formoterol Fumar (Dulera 100/5 Mdi*) 2 puff INH BID PRN PRN Reason: WHEEZING Naloxone HCl (Narcan*) 0.08 mg IV PUSH Q2M PRN PRN Reason: RR<8 or pt unresponsive Ondansetron HCl (Zofran Inj*) 4 mg IV Q6H PRN PRN Reason: NAUSEA/VOMITING Last Admin: 09/30/19 06:28 Dose: 4 mg Ondansetron HCl (Zofran Odt Tab*) 4 mg SL Q6H PRN PRN Reason: NAUSEA/VOMITING Last Admin: 09/29/19 15:54 Dose: 4 mg Pharmacy Profile Note (Scopolamine Patch Remove*) 1 note PATCH OFF ONCE ONE Stop: 10/03/19 09:01 Throat Lozenges (Chloraseptic Naresh*) 1 naresh PO Q2H PRN PRN Reason: SORE THROAT Last Admin: 09/30/19 17:11 Dose: 1 naresh Tiotropium [place] (Spiriva Respimat 2.5 Mcg) 2 puff INH QAM [facility] Last Admin: 09/30/19 07:50 Dose: 2 puff Vital Signs - 8 hr 09/30/19 09/30/19 09/30/19 11:00 11:03 13:00 Temperature 96.6 F Pulse Rate 66 Respiratory 16 16 16 Rate Blood Pressure 103/57 (mmHg) O2 Sat by Pulse 97 100 95 Oximetry 09/30/19 09/30/19 09/30/19 14:27 14:40 15:00 Temperature Pulse Rate 60 Respiratory 16 16 16 Rate Blood Pressure 115/62 (mmHg) O2 Sat by Pulse 98 96 Oximetry 09/30/19 09/30/19 09/30/19 15:40 16:00 17:00 Temperature Pulse Rate Respiratory 16 16 Rate Blood Pressure (mmHg) O2 Sat by Pulse 96 99 Oximetry Oxygen Devices in Use Now: OxyMask Appearance: Comfortable, NAD Eyes: No Scleral Icterus Ears/Nose/Mouth/Throat: Clear Oropharnyx Neck: NL Appearance and Movements; NL JVP Respiratory: Symmetrical Chest Expansion and Respiratory Effort, Clear to Auscultation Cardiovascular: NL Sounds; No Murmurs; No JVD, No Edema Abdominal: - - Soft. BS+. Dressing CDI. Drain in place with scant drainage Extremities: No Edema Neurological: Alert and Oriented x 3 Result Diagrams: 09/30/19 11:20 09/30/19 10:46 Additional Lab and Data: Laboratory Results - last 24 hr 09/30/19 09/30/19 09/30/19 10:20 10:46 11:20 WBC 9.1 RBC 3.74 Hgb 8.8 L Hct 28 L MCV 74 L MCH 24 L MCHC 32 RDW 17 H Plt Count 285 MPV 8.9 Neut % (Auto) 72.2 Lymph % (Auto) 16.4 [place] % (Auto) 7.4 Eos % (Auto) 3.0 Baso % (Auto) 1.0 Absolute Neuts (auto) 6.6 Absolute Lymphs (auto) 1.5 Absolute Monos (auto) 0.7 Absolute Eos (auto) 0.3 Absolute Basos (auto) 0.1 Absolute Nucleated RBC 0.0 Nucleated RBC % 0.1 Sodium 137 138 Potassium 3.3 L 3.3 L Chloride 106 106 Carbon Dioxide 27 25 Anion Gap 4 7 BUN 3 L 3 L Creatinine 0.47 L 0.46 L Est GFR ( Amer) 165.9 170.0 Est GFR (Non-Af Amer) 137.1 140.5 BUN/Creatinine Ratio 6.4 L 6.5 L Glucose 96 96 POC Glucose (mg/dL) Calcium 8.5 L 8.5 L Phosphorus 3.0 Magnesium 1.6 L Total Bilirubin 0.30 AST 10 L ALT 10 Alkaline Phosphatase 62 Total Protein 5.9 L Albumin 3.1 L Globulin 2.8 Albumin/Globulin Ratio 1.1 Prealbumin 7 L Triglycerides 47 Cholesterol 103 09/30/19 17:24 WBC RBC Hgb Hct MCV MCH MCHC RDW Plt Count MPV Neut % (Auto) Lymph % (Auto) [place] % (Auto) Eos % (Auto) Baso % (Auto) Absolute Neuts (auto) Absolute Lymphs (auto) Absolute Monos (auto) Absolute Eos (auto) Absolute Basos (auto) Absolute Nucleated RBC Nucleated RBC % Sodium Potassium Chloride Carbon Dioxide Anion Gap BUN Creatinine Est GFR ( Amer) Est GFR (Non-Af Amer) BUN/Creatinine Ratio Glucose POC Glucose (mg/dL) 117 H Calcium Phosphorus Magnesium Total Bilirubin AST ALT Alkaline Phosphatase Total Protein Albumin Globulin Albumin/Globulin Ratio Prealbumin Triglycerides Cholesterol Microbiology and Other Data: Microbiology 09/27/19 15:59 Aerobic Blood Culture - Preliminary Blood Venous No Growth Day 3 Anaerobic Blood Culture - Preliminary No Growth Day 3 09/27/19 15:37 Aerobic Blood Culture - Preliminary Blood Venous No Growth Day 3 Anaerobic Blood Culture - Preliminary No Growth Day 3 09/27/19 16:34 Skin and Soft Tissue MRSA/MSSA (PCR - Final Abdomen Mrsa Negative S.aureus Negative Gram Stain - Final Wound Culture - Preliminary Klebsiella Pneumoniae Streptococcus Anginosus Enterococcus Faecalis 09/28/19 16:22 Sterile Body Fluid Culture - Preliminary Misc Fluid (See Comment) - Abdominal Klebsiella Pneumoniae Streptococcus Anginosus Enterococcus Faecalis Sterile Body Fluid Culture - Preliminary Klebsiella Pneumoniae Streptococcus Anginosus Enterococcus Faecalis Skin and Soft Tissue MRSA/MSSA (PCR - Final Mrsa Negative S.aureus Negative 09/28/19 16:22 Gram Stain - Final Body Fluid - Abdominal 09/27/19 20:43 Nasal Screen MRSA (PCR) - Final Nasal Mrsa Not Detected Assess/Plan/Problems-Billing Assessment: 58 yr old female with pmh of asthma, hypothyroid, sciatic, viktor; who presented who intraperitoneal collections and spontaneous drainage from midline scar - Patient Problems (1) Intra-abdominal abscess Comment: - Management per general surgery - S/p IR drainage - 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 Cont Cefepime and Flagyl - NPO/TPN (2) Asthma Comment: - No S/S of exacerbation - Cont home inhalers (3) Hypothyroid Comment: - Continue IV levothyroxine (4) VIKTOR (obstructive sleep apnea) Comment: - Cont supplemental O2 as needed and oxygen saturation monitoring - Continue CPAP at night (5) Anemia Comment: - Normocytic anemia - Appears near patient's baseline - Monitor - Iron, Ferritin, TIBC, B12 and Folate ordered. (6) Electrolyte abnormality Comment: - Mag and K slightly low - Receiving lytes in TPN - Monitor (7) Full code status (8) DVT prophylaxis Comment: - SCDs per Gen Surg Attending: Hitesh Aguirre
[2019-09-30 22:45] LABS: Total Iron Binding Capacity 260 mcg/dL (250-450); Transferrin 186 mg/dL (203-362)
[2019-09-30 23:08] LABS: Ferritin 53.9 ng/mL (11-307)
[2019-09-30 23:11] LABS: Folate > 20.00 ng/mL (>3.99)
[2019-09-30 23:17] LABS: % Iron Saturation 8 % (15-55); Iron < 20 ug/dL (50-212)
[2019-10-01] MEDS: NS 0.9% 1000 ML** 1,000 ML IV SCH ×3 (01:07→17:27)
[2019-10-01] MEDS: metroNIDAZOLE IV 500 MG/100ML* 500 MG/100 ML BAG IVPB SCH ×3 (02:14→17:27)
[2019-10-01] MEDS: LORazepam INJ* 2 MG/ML 1 ML VIAL IV PUSH PRN ×4 (03:36→21:50)
[2019-10-01] MEDS: Levothyroxine INJ* 100 MCG/5 ML VIAL IV SCH (05:36)
[2019-10-01 06:29] LABS: Albumin 3.1 g/dL (3.2-5.2); Albumin/Globulin Ratio 1.1 (1-3); BUN/Creatinine Ratio 11.4 (8-20); Calcium 8.5 mg/dL (8.6-10.3); EGFR Non-African American 147.9 (>60); Globulin 2.8 g/dL (2-4); Magnesium 1.9 mg/dL (1.9-2.7); Phosphorus 2.7 mg/dL (2.5-5.0); Potassium 3.5 mmol/L (3.5-5.0); Total Bilirubin 0.2 mg/dL (0.2-1.0); Total Protein 5.9 g/dL (6.4-8.9)
[2019-10-01] MEDS: Morphine PCA 5 MG/ML * Titrate per Protocol PCA SCH (08:35)
--- NOTE | 2019-10-01 09:11 | PN ---
Progress Note - Progress Note Date of Service: 10/01/19 SOAP: Subjective: CC: Abdominal Abscess. HPI: Ms. Mendoza is a 58 yo female with PMH significant for asthma, VIKTOR, hypothyroidism, sciatica, and recurrent sigmoid diverticulitis s/p sigmoid colectomy; who presented to the emergency room after her midline ABD incision opened up. She is now S/P placement of a Pigtail drain and has been started on TPN. Denies fever, chills, vomiting, or diarrhea. Reports nausea and right sided ABD pain. Objective: Vital Signs 10/01/19 10/01/19 10/01/19 06:41 07:46 07:56 Temperature 97.5 F Pulse Rate 62 71 Respiratory 16 16 18 Rate Blood Pressure 102/65 (mmHg) O2 Sat by Pulse 95 98 94 Oximetry Physical Exam: General: NAD, laying in bed Neurological: Alert and Oriented HEENT: Moist MM Cardiovascular: Heart rate regular Respiratory: Lung sounds clear Abdominal: Bowel sounds present; ABD soft, mild tenderness in lower ABD, and non distended. Pigtail drain to right side of ABD with bile like drainage Skin: No rash Laboratory Results - last 24 hr 09/30/19 09/30/19 09/30/19 10:20 10:46 11:20 WBC 9.1 RBC 3.74 Hgb 8.8 L Hct 28 L MCV 74 L MCH 24 L MCHC 32 RDW 17 H Plt Count 285 MPV 8.9 Neut % (Auto) 72.2 Lymph % (Auto) 16.4 [place] % (Auto) 7.4 Eos % (Auto) 3.0 Baso % (Auto) 1.0 Absolute Neuts (auto) 6.6 Absolute Lymphs (auto) 1.5 Absolute Monos (auto) 0.7 Absolute Eos (auto) 0.3 Absolute Basos (auto) 0.1 Absolute Nucleated RBC 0.0 Nucleated RBC % 0.1 Sodium 137 138 Potassium 3.3 L 3.3 L Chloride 106 106 Carbon Dioxide 27 25 Anion Gap 4 7 BUN 3 L 3 L Creatinine 0.47 L 0.46 L Est GFR ( Amer) 165.9 170.0 Est GFR (Non-Af Amer) 137.1 140.5 BUN/Creatinine Ratio 6.4 L 6.5 L Glucose 96 96 Calcium 8.5 L 8.5 L Phosphorus 3.0 Magnesium 1.6 L Total Bilirubin 0.30 AST 10 L ALT 10 Alkaline Phosphatase 62 Total Protein 5.9 L Albumin 3.1 L Globulin 2.8 Albumin/Globulin Ratio 1.1 Prealbumin 7 L Triglycerides 47 Cholesterol 103 10/01/19 10/01/19 10/01/19 02:47 05:50 05:58 Sodium 139 Potassium 3.5 Chloride 108 Carbon Dioxide 29 Anion Gap 2 BUN 5 L Creatinine 0.44 L Est GFR ( Amer) 179.0 Est GFR (Non-Af Amer) 147.9 BUN/Creatinine Ratio 11.4 Glucose 110 H POC Glucose (mg/dL) 189 H 138 H Calcium 8.5 L Phosphorus 2.7 Magnesium 1.9 Total Bilirubin 0.20 AST 10 L ALT 8 Alkaline Phosphatase 66 Total Protein 5.9 L Albumin 3.1 L Globulin 2.8 Albumin/Globulin Ratio 1.1 Prealbumin 8 L Triglycerides 94 Cholesterol 104 Microbiology 09/28/19 16:22 Sterile Body Fluid Culture - Preliminary Misc Fluid (See Comment) - Abdominal Klebsiella Pneumoniae Streptococcus Anginosus Enterococcus Faecalis Sterile Body Fluid Culture - Preliminary Klebsiella Pneumoniae Streptococcus Anginosus Enterococcus Faecalis Skin and Soft Tissue MRSA/MSSA (PCR - Final Mrsa Negative S.aureus Negative 09/27/19 15:59 Aerobic Blood Culture - Preliminary Blood Venous No Growth Day 3 Anaerobic Blood Culture - Preliminary No Growth Day 3 09/27/19 15:37 Aerobic Blood Culture - Preliminary Blood Venous No Growth Day 3 Anaerobic Blood Culture - Preliminary No Growth Day 3 09/27/19 16:34 Skin and Soft Tissue MRSA/MSSA (PCR - Final Abdomen Mrsa Negative S.aureus Negative Gram Stain - Final Wound Culture - Preliminary Klebsiella Pneumoniae Streptococcus Anginosus Enterococcus Faecalis 09/28/19 16:22 Gram Stain - Final Body Fluid - Abdominal 09/27/19 20:43 Nasal Screen MRSA (PCR) - Final Nasal Mrsa Not Detected Assessment: 1. Abdominal abscess. S/P sigmoid colectomy in May 2019. CT scan with fluid collection superior to the bladder and air pocket with surgical tract without open wound. S/P pigtail drain placement yesterday. Continues to have right sided ABD pain, but this is improving. ABD wound and ABD fluid cultures with Klebsiella, strep anginosus, and enterococcus faecalis. She is improving on ABX that do not cover enterococcus, so suspect this is not a pathogen. Blood cultures with no growth on day 3. Afebrile and leukocytosis has resolved. CRP elevated on 09/26 when last checked. 2. VIKTOR. Plan: Discontinue cefepime. Will start Ceftriaxone 1 gm IV daily and continue flagyl. She will likely require an extended course of IV ABX in the setting of an abdominal abscess, final recommendations will be based on her clinical course. PICC line has been placed for TPN.
[2019-10-01] MEDS: SPIRIVA Respimat* (tiotropium) 2.5 mcg/inh Inhaler INH SCH (09:31)
--- NOTE | 2019-10-01 11:02 | PN ---
Progress Note - Progress Note Date of Service: 10/01/19 Note: S: Reports she does not feel much different than yesterday, though nausea has improved and slightly less tender. Ambulating without issue. + Flatus and BM. O: Temp Pulse Resp BP Pulse Ox 97.7 F 63 16 105/64 100 10/01/19 11:01 10/01/19 11:01 10/01/19 11:01 10/01/19 11:01 10/01/19 11:01 Intake and Output Last 24 Hours 09/29/19 09/30/19 10/01/19 10/02/19 06:59 06:59 06:59 06:59 Intake Total 1475 2895 3096 1095 Output Total 1485 2320 4245 700 Balance -10 575 -1149 395 Weight 159 lb Intake: IV Fluids 980 1969 2842 980 NS (0.9%) 980 1969 2842 980 IVPB 55 265 254 105 ABX - CEFEPIME 55 55 105 ABX - FLAGYL 210 149 105 Oral 440 660 0 Pigtail Drain 10 Output: Pigtail Drain 85 70 70 Urine 1400 2250 3825 700 Urostomy 350 Other: Estimated Void Medium Medium Small # Bowel Movements 1 Estimated Stool Amount Medium Medium Medium # Voids 2 Microbiology 09/27/19 16:34 Skin and Soft Tissue MRSA/MSSA (PCR - Final Abdomen Mrsa Negative S.aureus Negative Gram Stain - Final Wound Culture - Final Klebsiella Pneumoniae Streptococcus Anginosus Enterococcus Faecalis 09/28/19 16:22 Sterile Body Fluid Culture - Preliminary Misc Fluid (See Comment) - Abdominal Klebsiella Pneumoniae Streptococcus Anginosus Enterococcus Faecalis Sterile Body Fluid Culture - Preliminary Klebsiella Pneumoniae Streptococcus Anginosus Enterococcus Faecalis Skin and Soft Tissue MRSA/MSSA (PCR - Final Mrsa Negative S.aureus Negative 09/27/19 15:59 Aerobic Blood Culture - Preliminary Blood Venous No Growth Day 3 Anaerobic Blood Culture - Preliminary No Growth Day 3 09/27/19 15:37 Aerobic Blood Culture - Preliminary Blood Venous No Growth Day 3 Anaerobic Blood Culture - Preliminary No Growth Day 3 PEX General: Alert, in NAD. Integumentary: No rashes or jaundice. HEENT: PERRLA. Oropharynx clear. Sclera anicteric. Heart: RRR. Lungs: CTAB. ABD: BS present. Soft, nondistended. Diffusely tender, mostly in hypogastrium. Drain exiting to right with scant yellow output, dressing C/D/I. Lower midline wound with packing. Extremities: Calves soft and nontender. No edema. Distal pulses intact bilaterally. Lower midline wound packing taken out. Purulence on dressing. Wound explored with sterile cotton tipped applicator. Purulence on wound bed. Tracks approximately 1.5 cm superior and to pt's right. Repacked with 4x4 moistened with sterile saline. Tolerated well. Assessment and plan: 58 yo F day #3 s/p IR drainage of intra-abdominal collection. NPO, TPN for now. Culture now with enterococcus faecalis. Keep antibiotic course; abx as per ID. Continue ambulation.
[2019-10-01] MEDS: Ondansetron INJ* 2 MG/ML VIAL IV PRN (11:03)
[2019-10-01] MEDS: cefTRIAXone(*) 1 GM in NS 0.9% 50 ML* 50 ML IVPB SCH (11:43)
[2019-10-01] MEDS: Benzocaine/Menthol LOZ* 1 LOZENGE PO PRN ×2 (12:50→21:09)
[2019-10-01] MEDS: Ketorolac INJ* 15 MG/ML 1 ML VIAL IV PUSH SCH ×2 (14:59→21:02)
--- NOTE | 2019-10-01 15:05 | PN ---
Progress Note - Progress Note Date of Service: 10/01/19 Note: nausea improved, right lower abdomen discomfort associated with drain minimal bilious drainage control pain, continue antibiotics, tpn, drainage all discussed with patient. plans pending clinical course
[2019-10-01] MEDS: TPN CENTRAL STANDARD BASE A CENTR SCH ×12 (17:19)
--- NOTE | 2019-10-01 18:03 | PN ---
Subjective Date of Service: 10/01/19 Interval History: Patient resting in bed on assessment. Reports she has been experiencing increase in pain and nausea. Per special education secretary team called and orders placed. Patient denies sob, cp, fever, chills. Objective Active Medications: Acetaminophen (Tylenol Tab*) 650 mg PO Q4H PRN PRN Reason: MILD PAIN or TEMP > 100.4 Last Admin: 09/29/19 09:37 Dose: 650 mg Diphenhydramine HCl (Benadryl Iv*) 25 mg IV Q6H PRN PRN Reason: ITCHING Heparin Sodium (Porcine) (Heparin Flush Picc/Ml/Cvc(*)) 1 - 3 ml FLUSH 0600, 1800 [facility]; Protocol Last Admin: 10/01/19 17:32 Dose: Not Given Sodium Chloride (Ns 0.9% 1000 Ml) 1,000 mls @ 150 mls/hr IV PER RATE [facility] Last Admin: 10/01/19 17:27 Dose: 150 mls/hr Metronidazole/Sodium Chloride (Flagyl 500 Mg Ivpb*) 500 mg in 100 mls @ 100 mls /hr IVPB Q8H [facility] Last Admin: 10/01/19 17:27 Dose: 100 mls/hr Morphine Sulfate (Morphine [employer] Adult* 5 Mg/Ml) 30 mls @ 0 mls/hr TRANSPORTATION LEAD .change Q24H [facility]; Protocol Last Admin: 10/01/19 08:35 Dose: 1 mls/hr Dextrose 500 ml/ Amino Acids 850 ml/ Sterile Water 150 ml/Fat Emulsion Intravenous 250 ml/ Sodium Chloride 100 meq/Potassium Chloride 50 meq/Potassium Phosphate 20 mmole/Calcium Gluconate 10 meq/Magnesium Sulfate 20 meq/ Multivitamins 10 ml/ Trace Metals 1 ml/ Nutrition ( Parenteral) 1,844.0978 mls @ 76.837 mls/hr CENTR 1700 [facility]; Protocol Last Admin: 10/01/19 17:19 Dose: 76.837 mls/hr Ceftriaxone Sodium 1 gm/ (Sodium Chloride) 50 mls @ 100 mls/hr IVPB Q24H [facility] Last Admin: 10/01/19 11:43 Dose: 100 mls/hr Ketorolac Tromethamine (Toradol Inj*) 15 mg IV PUSH Q6H [facility] Last Admin: 10/01/19 14:59 Dose: 15 mg Levothyroxine Sodium (Synthroid Inj*) 37.5 mcg IV 0600 [facility] Last Admin: 10/01/19 05:36 Dose: 37.5 mcg Lorazepam (Ativan Inj*) 0.5 mg IV PUSH Q6H PRN PRN Reason: ANXIETY Last Admin: 10/01/19 15:32 Dose: 0.5 mg Miscellaneous (Ativan Pyxis [place]) 1 ea N/A .ATIVAN IV PERRY PRN PRN Reason: PYXIS PERRY Mometasone Furoate/Formoterol Fumar (Dulera 100/5 Mdi*) 2 puff INH BID PRN PRN Reason: WHEEZING Naloxone HCl (Narcan*) 0.08 mg IV PUSH Q2M PRN PRN Reason: RR<8 or pt unresponsive Ondansetron HCl (Zofran Inj*) 4 mg IV Q6H PRN PRN Reason: NAUSEA/VOMITING Last Admin: 10/01/19 11:03 Dose: 4 mg Ondansetron HCl (Zofran Odt Tab*) 4 mg SL Q6H PRN PRN Reason: NAUSEA/VOMITING Last Admin: 09/29/19 15:54 Dose: 4 mg Pharmacy Profile Note (Scopolamine Patch Remove*) 1 note PATCH OFF ONCE ONE Stop: 10/03/19 09:01 Throat Lozenges (Chloraseptic Naresh*) 1 naresh PO Q2H PRN PRN Reason: SORE THROAT Last Admin: 10/01/19 12:50 Dose: 1 naresh Tiotropium [place] (Spiriva Respimat 2.5 Mcg) 2 puff INH QAM [facility] Last Admin: 10/01/19 09:31 Dose: 2 puff Zolpidem Tartrate (Ambien Tab*) 5 mg PO BEDTIME [facility] Vital Signs - 8 hr 10/01/19 10/01/19 10/01/19 10:19 11:01 11:46 Temperature 97.7 F Pulse Rate 63 Respiratory 18 16 18 Rate Blood Pressure 105/64 (mmHg) O2 Sat by Pulse 100 94 Oximetry 10/01/19 10/01/19 10/01/19 13:40 13:55 15:17 Temperature 97.6 F 97.5 F Pulse Rate 63 74 Respiratory 18 18 Rate Blood Pressure 119/67 110/70 (mmHg) O2 Sat by Pulse 98 95 100 Oximetry 10/01/19 10/01/19 10/01/19 15:32 15:43 16:54 Temperature Pulse Rate Respiratory 18 18 16 Rate Blood Pressure (mmHg) O2 Sat by Pulse 96 Oximetry Oxygen Devices in Use Now: Nasal Cannula Appearance: Comfortable, NAD Eyes: No Scleral Icterus Ears/Nose/Mouth/Throat: Mucous Membranes Moist Neck: NL Appearance and Movements; NL JVP Respiratory: Symmetrical Chest Expansion and Respiratory Effort, Clear to Auscultation Cardiovascular: NL Sounds; No Murmurs; No JVD, No Edema Abdominal: - - Soft. Tender. BS +. Extremities: No Edema Skin: - - Dressing to abd cdi. Drain intact Neurological: Alert and Oriented x 3 Nutrition: - - NPO Result Diagrams: 09/30/19 11:20 10/01/19 05:50 Additional Lab and Data: Laboratory Results - last 24 hr 09/30/19 09/30/19 10/01/19 21:58 22:08 02:47 Sodium Potassium Chloride Carbon Dioxide Anion Gap BUN Creatinine Est GFR ( Amer) Est GFR (Non-Af Amer) BUN/Creatinine Ratio Glucose POC Glucose (mg/dL) 138 H 189 H Calcium Phosphorus Magnesium Iron < 20 L TIBC 260 % Saturation 8 L Unsat Iron Binding < 245 Transferrin 186 L Ferritin 53.9 Total Bilirubin AST ALT Alkaline Phosphatase Total Protein Albumin Globulin Albumin/Globulin Ratio Prealbumin Triglycerides Cholesterol Vitamin B12 1013 H Folate > 20.00 10/01/19 10/01/19 10/01/19 05:50 05:58 09:46 Sodium 139 Potassium 3.5 Chloride 108 Carbon Dioxide 29 Anion Gap 2 BUN 5 L Creatinine 0.44 L Est GFR ( Amer) 179.0 Est GFR (Non-Af Amer) 147.9 BUN/Creatinine Ratio 11.4 Glucose 110 H POC Glucose (mg/dL) 138 H 149 H Calcium 8.5 L Phosphorus 2.7 Magnesium 1.9 Iron TIBC % Saturation Unsat Iron Binding Transferrin Ferritin Total Bilirubin 0.20 AST 10 L ALT 8 Alkaline Phosphatase 66 Total Protein 5.9 L Albumin 3.1 L Globulin 2.8 Albumin/Globulin Ratio 1.1 Prealbumin 8 L Triglycerides 94 Cholesterol 104 Vitamin B12 Folate 10/01/19 14:02 Sodium Potassium Chloride Carbon Dioxide Anion Gap BUN Creatinine Est GFR ( Amer) Est GFR (Non-Af Amer) BUN/Creatinine Ratio Glucose POC Glucose (mg/dL) 148 H Calcium Phosphorus Magnesium Iron TIBC % Saturation Unsat Iron Binding Transferrin Ferritin Total Bilirubin AST ALT Alkaline Phosphatase Total Protein Albumin Globulin Albumin/Globulin Ratio Prealbumin Triglycerides Cholesterol Vitamin B12 Folate Microbiology and Other Data: Microbiology 09/27/19 15:59 Aerobic Blood Culture - Preliminary Blood Venous No Growth Day 4 Anaerobic Blood Culture - Preliminary No Growth Day 4 09/27/19 15:37 Aerobic Blood Culture - Preliminary Blood Venous No Growth Day 4 Anaerobic Blood Culture - Preliminary No Growth Day 4 09/27/19 16:34 Skin and Soft Tissue MRSA/MSSA (PCR - Final Abdomen Mrsa Negative S.aureus Negative Gram Stain - Final Wound Culture - Final Klebsiella Pneumoniae Streptococcus Anginosus Enterococcus Faecalis 09/28/19 16:22 Sterile Body Fluid Culture - Preliminary Misc Fluid (See Comment) - Abdominal Klebsiella Pneumoniae Streptococcus Anginosus Enterococcus Faecalis Sterile Body Fluid Culture - Preliminary Klebsiella Pneumoniae Streptococcus Anginosus Enterococcus Faecalis Skin and Soft Tissue MRSA/MSSA (PCR - Final Mrsa Negative S.aureus Negative 09/28/19 16:22 Gram Stain - Final Body Fluid - Abdominal 09/27/19 20:43 Nasal Screen MRSA (PCR) - Final Nasal Mrsa Not Detected Assess/Plan/Problems-Billing Assessment: 58 yr old female with pmh of asthma, hypothyroid, sciatic, viktor; who presented who intraperitoneal collections and spontaneous drainage from midline scar - Patient Problems (1) Intra-abdominal abscess Comment: - Day 3 S/p IR drainage - Management per general surgery - Increase pain and nausea today. New orders per surg team - TRANSPORTATION LEAD - ID consulting. Cefepime changed to Creftriaxone. Cont Flagyl - NPO/TPN (2) Asthma Comment: - No S/S of exacerbation - Cont home inhalers (3) Hypothyroid Comment: - Continue IV levothyroxine (4) VIKTOR (obstructive sleep apnea) Comment: - Cont supplemental O2 as needed and oxygen saturation monitoring - Continue CPAP at night (5) Anemia Comment: - Likely anemia of chronic disease - Microcytic anemia - Appears near patient's baseline - Monitor (6) Electrolyte abnormality Comment: - Mag and K normalizing - Receiving lytes in TPN - Monitor (7) Full code status (8) DVT prophylaxis Comment: - SCDs per Gen Surg Attending: Petrona Gray
[2019-10-01] MEDS: Zolpidem TAB* 5 MG PO SCH (21:49)
[2019-10-02] MEDS: NS 0.9% 1000 ML** 1,000 ML IV SCH ×3 (01:40→21:17)
[2019-10-02] MEDS: metroNIDAZOLE IV 500 MG/100ML* 500 MG/100 ML BAG IVPB SCH ×3 (01:48→17:49)
[2019-10-02] MEDS: Ketorolac INJ* 15 MG/ML 1 ML VIAL IV PUSH SCH ×4 (03:24→21:33)
[2019-10-02] MEDS: Levothyroxine INJ* 100 MCG/5 ML VIAL IV SCH (05:45)
[2019-10-02] MEDS: Benzocaine/Menthol LOZ* 1 LOZENGE PO PRN (05:47)
[2019-10-02 06:19] LABS: Albumin 3.1 g/dL (3.2-5.2); Albumin/Globulin Ratio 1.1 (1-3); BUN/Creatinine Ratio 16.3 (8-20); Calcium 8.7 mg/dL (8.6-10.3); EGFR African American 183.8 (>60); EGFR Non-African American 151.9 (>60); Globulin 2.8 g/dL (2-4); Magnesium 1.9 mg/dL (1.9-2.7); Phosphorus 3.3 mg/dL (2.5-5.0); Potassium 3.8 mmol/L (3.5-5.0); Total Bilirubin 0.2 mg/dL (0.2-1.0); Total Protein 5.9 g/dL (6.4-8.9)
[2019-10-02] MEDS: Acetaminophen TAB* 325 MG PO PRN ×3 (09:00→18:20)
[2019-10-02] MEDS: SPIRIVA Respimat* (tiotropium) 2.5 mcg/inh Inhaler INH SCH (09:01)
[2019-10-02] MEDS: Ondansetron INJ* 2 MG/ML VIAL IV PRN ×2 (09:02→21:33)
[2019-10-02] MEDS: diPHENhydraMINE IV* 50 MG/ML 1 ml VIAL (BENADRYL) IV PRN (10:14)
[2019-10-02] MEDS: cefTRIAXone(*) 1 GM in NS 0.9% 50 ML* 50 ML IVPB SCH (11:26)
[2019-10-02 13:12] LABS: Albumin 3.3 g/dL (3.2-5.2); Albumin/Globulin Ratio 1.1 (1-3); BUN/Creatinine Ratio 18.2 (8-20); Calcium 8.7 mg/dL (8.6-10.3); EGFR Non-African American 147.9 (>60); Potassium 3.8 mmol/L (3.5-5.0); Total Bilirubin 0.2 mg/dL (0.2-1.0); Total Protein 6.3 g/dL (6.4-8.9)
--- NOTE | 2019-10-02 15:19 | PN ---
Progress Note - Progress Note Date of Service: 10/02/19 SOAP: Subjective: NAD uncomfortable in bed continues with RLQ pain at Pigtail drain site, nausea [] Objective: Intake & Output 09/30/19 10/01/19 10/02/19 10/03/19 06:59 06:59 06:59 06:59 Intake Total 2895 3096 3084 105 Output Total 2320 4245 4645 1800 Balance 506 -0636 -9152 -0690 Weight 166 lb Intake: IV Fluids 1969 2842 2906 NS (0.9%) 1969 2842 2906 IVPB 265 254 148 105 ABX - CEFEPIME 55 105 ABX - FLAGYL 210 149 148 105 Oral 660 0 0 0 Pigtail Drain 30 Output: Pigtail Drain 70 70 45 25 Urine 2250 3825 4600 1775 Urostomy 350 Other: Estimated Void Medium Small Estimated Stool Amount Medium Medium # Voids 1 Temp Pulse Resp BP Pulse Ox 98.2 F 62 18 109/62 96 10/02/19 11:32 10/02/19 11:32 10/02/19 13:40 10/02/19 11:32 10/02/19 13:40 PEX GEN: NAD Chest: CTA CVS: RRR ABD: soft, + tender at RLQ Drain site, min tender across lower abdomen + BS's, wound at base of midline incision site packing removed packing with bilious staining, no gross purulence from wound drain with bilious output EXT: calves soft non tender Assessment: 58 yo female S/P Pigtail drainage of intra-abdominal suprapubic collection place by IR on 09/27, ABX per ID, CX's have grown out Klebs, enterococcus, and strep. Pigtail drainage decreased. PICC team to evaluate line. On TPN Plan: NS moistened 4x4 packed to midline wound, continue same daily, ambulate, allow minimal ice chios, meds with sips, tylenol added to pain regimen. Continue TPN. TPN panel for Saturday morning. Dr Piña to follow over weekend. Above d/w Dr Ponce
[2019-10-02] MEDS: Ondansetron ODT TAB* 4 MG SL PRN (15:36)
[2019-10-02] MEDS ORDERED: Alteplase (CATHFLO)* 2 MG VIAL IV ONE (17:00)
[2019-10-02] MEDS: TPN CENTRAL STANDARD BASE A CENTR SCH ×12 (17:42)
[2019-10-03] MEDS: Zolpidem TAB* 5 MG PO SCH ×2 (00:06→22:09)
[2019-10-03] MEDS: metroNIDAZOLE IV 500 MG/100ML* 500 MG/100 ML BAG IVPB SCH ×3 (02:30→17:31)
[2019-10-03] MEDS: Ketorolac INJ* 15 MG/ML 1 ML VIAL IV PUSH SCH ×4 (03:22→20:27)
[2019-10-03] MEDS: Levothyroxine INJ* 100 MCG/5 ML VIAL IV SCH (06:10)
[2019-10-03 06:50] LABS: BUN/Creatinine Ratio 15.9 (8-20); Calcium 8.8 mg/dL (8.6-10.3); EGFR Non-African American 147.9 (>60); Potassium 3.8 mmol/L (3.5-5.0)
[2019-10-03] MEDS: NS 0.9% 1000 ML** 1,000 ML IV SCH ×3 (07:10→23:16)
[2019-10-03] MEDS ORDERED: Scopolamine PATCH Remove* 1 NOTE MISC PATCH OFF ONE (09:00)
[2019-10-03] MEDS: SPIRIVA Respimat* (tiotropium) 2.5 mcg/inh Inhaler INH SCH (09:40)
[2019-10-03] MEDS: cefTRIAXone(*) 1 GM in NS 0.9% 50 ML* 50 ML IVPB SCH (10:55)
--- NOTE | 2019-10-03 10:57 | PN ---
Progress Note - Progress Note Date of Service: 10/03/19 Note: Surgery Progress Note S: Patient is doing well. No overnight events. She hasn't had bowel function. She has been ambulating. She is just somewhat anxious about if she needs further surgery. O: Vital Signs - 24 hr 10/02/19 10/02/19 10/02/19 11:21 11:32 12:07 Temperature 98.2 F Pulse Rate 62 Respiratory 16 16 16 Rate Blood Pressure 109/62 (mmHg) O2 Sat by Pulse 97 96 Oximetry 10/02/19 10/02/19 10/02/19 13:40 15:26 15:43 Temperature 97.7 F Pulse Rate 58 Respiratory 18 16 18 Rate Blood Pressure 116/59 (mmHg) O2 Sat by Pulse 96 100 96 Oximetry 10/02/19 10/02/19 10/02/19 18:02 19:12 19:21 Temperature 97.6 F Pulse Rate 62 62 Respiratory 18 20 20 Rate Blood Pressure 125/64 (mmHg) O2 Sat by Pulse 98 94 100 Oximetry 10/02/19 10/02/19 10/02/19 20:00 21:40 22:00 Temperature Pulse Rate Respiratory 18 18 18 Rate Blood Pressure (mmHg) O2 Sat by Pulse 98 98 Oximetry 10/02/19 10/03/19 10/03/19 23:54 00:00 02:00 Temperature 97.7 F Pulse Rate 66 Respiratory 17 18 18 Rate Blood Pressure 108/69 (mmHg) O2 Sat by Pulse 99 99 97 Oximetry 10/03/19 10/03/19 10/03/19 03:39 04:00 06:00 Temperature 97.8 F Pulse Rate 63 Respiratory 17 16 18 Rate Blood Pressure 131/61 (mmHg) O2 Sat by Pulse 100 98 97 Oximetry 10/03/19 10/03/19 10/03/19 08:00 09:01 10:00 Temperature 97.4 F Pulse Rate 63 Respiratory 18 16 16 Rate Blood Pressure 103/63 (mmHg) O2 Sat by Pulse 97 99 98 Oximetry Laboratory Results - last 24 hr 10/02/19 10/02/19 10/02/19 09:59 12:39 13:39 Sodium 141 Potassium 3.8 Chloride 111 Carbon Dioxide 28 Anion Gap 2 BUN 8 Creatinine 0.44 L Est GFR ( Amer) 179.0 Est GFR (Non-Af Amer) 147.9 BUN/Creatinine Ratio 18.2 Glucose 86 POC Glucose (mg/dL) 134 H 119 H Calcium 8.7 Phosphorus 3.0 Magnesium 2.0 Total Bilirubin 0.20 AST 13 ALT 9 Alkaline Phosphatase 66 Total Protein 6.3 L Albumin 3.3 Globulin 3.0 Albumin/Globulin Ratio 1.1 Prealbumin 11 L Triglycerides 97 Cholesterol 100 10/02/19 10/03/19 10/03/19 22:44 00:42 06:15 Sodium 139 Potassium 3.8 Chloride 110 Carbon Dioxide 26 Anion Gap 3 BUN 7 Creatinine 0.44 L Est GFR ( Amer) 179.0 Est GFR (Non-Af Amer) 147.9 BUN/Creatinine Ratio 15.9 Glucose 90 POC Glucose (mg/dL) 103 H 128 H Calcium 8.8 Phosphorus Magnesium Total Bilirubin AST ALT Alkaline Phosphatase Total Protein Albumin Globulin Albumin/Globulin Ratio Prealbumin Triglycerides Cholesterol Intake & Output 10/02/19 10/03/19 10/03/19 22:59 06:59 14:59 Intake Total 671 75 7384 Output Total 2281 299 7223 Balance -885 -805 -790 Intake: IV Fluids 990 1000 NS (0.9%) 990 1000 Oral 0 0 Pigtail Drain 10 10 Output: Pigtail Drain 25 60 Urine 2362 126 4629 Other: Estimated Void Small Physical exam: Abdomen- soft, NTND, RLQ drain with bilious fluid, approximately 85 cc for last 24 hours. Lower midline incision open with small wound, packed with gauze A/P: 58 F s/p sigmoid colectomy, with intraabdominal abscess likely ECF, s/p IR drainage, stable. - Continue TPN and small sips - OOB and ambulate - Appreciate ID recommendations, patient remains afebrile and on ceftriaxone and flagyl for intraabdominal cx that grew klebsiella, streptococcus, enterococcus - Daily wet to dry dressing changes
[2019-10-03] MEDS: LORazepam INJ* 2 MG/ML 1 ML VIAL IV PUSH PRN ×2 (11:49→17:44)
[2019-10-03] MEDS: TPN CENTRAL STANDARD BASE A CENTR SCH ×12 (17:31)
--- NOTE | 2019-10-03 19:27 | PN ---
Hospitalist Progress Note Date of Service: 10/03/19 Discussed patient with Surgical PA yesterday and how we are following remotely. Reviewed chart. No changes made at this time.
[2019-10-04] MEDS: Ondansetron INJ* 2 MG/ML VIAL IV PRN ×2 (01:39→13:13)
[2019-10-04] MEDS: metroNIDAZOLE IV 500 MG/100ML* 500 MG/100 ML BAG IVPB SCH ×3 (01:41→17:18)
[2019-10-04] MEDS: Ketorolac INJ* 15 MG/ML 1 ML VIAL IV PUSH SCH ×4 (03:18→20:15)
[2019-10-04] MEDS: Levothyroxine INJ* 100 MCG/5 ML VIAL IV SCH (06:02)
[2019-10-04 06:35] LABS: BUN/Creatinine Ratio 22.7 (8-20); Calcium 8.4 mg/dL (8.6-10.3); EGFR Non-African American 147.9 (>60); Potassium 3.8 mmol/L (3.5-5.0)
[2019-10-04] MEDS: NS 0.9% 1000 ML** 1,000 ML IV SCH ×3 (07:16→23:14)
[2019-10-04] MEDS: SPIRIVA Respimat* (tiotropium) 2.5 mcg/inh Inhaler INH SCH (09:12)
[2019-10-04] MEDS: cefTRIAXone(*) 1 GM in NS 0.9% 50 ML* 50 ML IVPB SCH (10:57)
--- NOTE | 2019-10-04 11:13 | PN ---
Progress Note - Progress Note Date of Service: 10/04/19 Note: Surgery Progress Note S: Patient is doing well. No overnight events. She has had two bowel movements. She has been ambulating. She is eager to know when she can have more than sips. O: Vital Signs - 24 hr 10/03/19 10/03/19 10/03/19 11:34 11:49 12:00 Temperature 97.5 F Pulse Rate 60 Respiratory 14 14 16 Rate Blood Pressure 116/74 (mmHg) O2 Sat by Pulse 97 98 Oximetry 10/03/19 10/03/19 10/03/19 13:04 14:00 15:54 Temperature 97.7 F Pulse Rate 73 Respiratory 16 16 16 Rate Blood Pressure 102/54 (mmHg) O2 Sat by Pulse 97 97 Oximetry 10/03/19 10/03/19 10/03/19 16:00 17:37 17:44 Temperature Pulse Rate Respiratory 16 16 16 Rate Blood Pressure (mmHg) O2 Sat by Pulse 97 97 Oximetry 10/03/19 10/03/19 10/03/19 19:37 20:15 20:27 Temperature 97.6 F Pulse Rate 71 Respiratory 18 16 16 Rate Blood Pressure 99/49 (mmHg) O2 Sat by Pulse 95 95 Oximetry 10/03/19 10/03/19 10/03/19 22:00 23:22 23:29 Temperature 98.2 F Pulse Rate 72 Respiratory 16 16 16 Rate Blood Pressure 121/73 (mmHg) O2 Sat by Pulse 95 97 100 Oximetry 10/04/19 10/04/19 10/04/19 02:00 03:15 04:00 Temperature 98 F Pulse Rate 63 Respiratory 16 16 16 Rate Blood Pressure 121/81 (mmHg) O2 Sat by Pulse 93 99 95 Oximetry 10/04/19 10/04/19 10/04/19 06:00 07:42 08:00 Temperature 98.3 F Pulse Rate 59 Respiratory 16 19 19 Rate Blood Pressure 94/61 (mmHg) O2 Sat by Pulse 97 98 98 Oximetry 10/04/19 10:00 Temperature Pulse Rate Respiratory 16 Rate Blood Pressure (mmHg) O2 Sat by Pulse 98 Oximetry Laboratory Results - last 24 hr 10/03/19 10/03/19 10/04/19 16:39 23:21 06:02 Sodium 139 Potassium 3.8 Chloride 113 H Carbon Dioxide 23 Anion Gap 3 BUN 10 Creatinine 0.44 L Est GFR ( Amer) 179.0 Est GFR (Non-Af Amer) 147.9 BUN/Creatinine Ratio 22.7 H Glucose 101 H POC Glucose (mg/dL) 144 H 150 H Calcium 8.4 L Intake & Output 10/03/19 10/04/19 10/04/19 22:59 06:59 14:59 Intake Total 2256 1083 1097 Output Total 2661 312 1638 Balance 456 243 -303 Intake: IV Fluids 653 963 997 NS (0.9%) 653 963 997 IVPB 110 100 ABX - FLAGYL 110 100 TPN/PPN 1593 Oral 0 Pigtail Drain 10 10 Output: Pigtail Drain 40 Urine 0105 922 0695 Other: Estimated Stool Amount Small Physical exam: Abdomen- soft, NTND, lower abdominal wound packing changed. S/S fluid present. The wound was probed and fairly shallow, fascia felt intact; RLQ drain with bilious fluid A/P: 58 F s/p sigmoid colectomy, with intraabdominal abscess likely ECF, s/p IR drainage, stable. - Continue TPN and small sips - OOB and ambulate - Appreciate ID recommendations, patient remains afebrile and on ceftriaxone and flagyl for intraabdominal cx that grew klebsiella, streptococcus, enterococcus - Daily wet to dry dressing changes - I advised patient Dr. Ponce will discuss advancing diet and discharge planning with her tomorrow. It may be possible soon, as her wound seems to have little drainage and the IR drain has also had decreased output
[2019-10-04] MEDS: HYDROmorphone INJ* 0.5 MG/0.5 ML SYRINGE IV SLOW PU PRN ×2 (13:10→18:11)
--- NOTE | 2019-10-04 13:18 | PN ---
Subjective Date of Service: 10/04/19 Interval History: Patient assessed lying in bed. Reports she feels well today. Reports she has walked the unit 17 times. Reports BM today. Pain improved. Nausea improved. Currently on chips PO and hoping to advance. Denies fever, chills, sob, cp, vomiting. Objective Active Medications: Acetaminophen (Tylenol Tab*) 650 mg PO Q4H PRN PRN Reason: MILD PAIN or TEMP > 100.4 Last Admin: 10/02/19 18:20 Dose: 650 mg Diphenhydramine HCl (Benadryl Iv*) 25 mg IV Q6H PRN PRN Reason: ITCHING Last Admin: 10/02/19 10:14 Dose: 25 mg Heparin Sodium (Porcine) (Heparin Flush Picc/Ml/Cvc(*)) 1 - 3 ml FLUSH 0600, 1800 [facility]; Protocol Last Admin: 10/04/19 06:02 Dose: Not Given Hydromorphone HCl (Dilaudid Inj*) 0.5 mg IV SLOW PU Q4H PRN PRN Reason: PAIN - MODERATE Last Admin: 10/04/19 13:10 Dose: 0.5 mg Sodium Chloride (Ns 0.9% 1000 Ml) 1,000 mls @ 150 mls/hr IV PER RATE [facility] Last Admin: 10/04/19 07:16 Dose: 150 mls/hr Metronidazole/Sodium Chloride (Flagyl 500 Mg Ivpb*) 500 mg in 100 mls @ 100 mls /hr IVPB Q8H [facility] Last Admin: 10/04/19 09:12 Dose: 100 mls/hr Dextrose 500 ml/ Amino Acids 850 ml/ Sterile Water 150 ml/Fat Emulsion Intravenous 250 ml/ Sodium Chloride 100 meq/Potassium Chloride 50 meq/Potassium Phosphate 20 mmole/Calcium Gluconate 10 meq/Magnesium Sulfate 20 meq/ Multivitamins 10 ml/ Trace Metals 1 ml/ Nutrition ( Parenteral) 1,844.0978 mls @ 76.837 mls/hr CENTR 1700 [facility]; Protocol Last Admin: 10/03/19 17:31 Dose: 76.837 mls/hr Ceftriaxone Sodium 1 gm/ (Sodium Chloride) 50 mls @ 100 mls/hr IVPB Q24H [facility] Last Admin: 10/04/19 10:57 Dose: 100 mls/hr Ketorolac Tromethamine (Toradol Inj*) 15 mg IV PUSH Q6H [facility] Last Admin: 10/04/19 09:12 Dose: 15 mg Levothyroxine Sodium (Synthroid Inj*) 37.5 mcg IV 0600 [facility] Last Admin: 10/04/19 06:02 Dose: 37.5 mcg Lorazepam (Ativan Inj*) 0.5 mg IV PUSH Q6H PRN PRN Reason: ANXIETY Last Admin: 10/03/19 17:44 Dose: 0.5 mg Miscellaneous (Ativan Pyxis [place]) 1 ea N/A .ATIVAN IV PERRY PRN PRN Reason: PYXIS PERRY Mometasone Furoate/Formoterol Fumar (Dulera 100/5 Mdi*) 2 puff INH BID PRN PRN Reason: WHEEZING Last Admin: 10/03/19 08:30 Dose: 2 puff Naloxone HCl (Narcan*) 0.08 mg IV PUSH Q2M PRN PRN Reason: RR<8 or pt unresponsive Ondansetron HCl (Zofran Inj*) 4 mg IV Q6H PRN PRN Reason: NAUSEA/VOMITING Last Admin: 10/04/19 13:13 Dose: 4 mg Ondansetron HCl (Zofran Odt Tab*) 4 mg SL Q6H PRN PRN Reason: NAUSEA/VOMITING Last Admin: 10/02/19 15:36 Dose: 4 mg Throat Lozenges (Chloraseptic Naresh*) 1 naresh PO Q2H PRN PRN Reason: SORE THROAT Last Admin: 10/02/19 05:47 Dose: 1 naresh Tiotropium [place] (Spiriva Respimat 2.5 Mcg) 2 puff INH QAM [facility] Last Admin: 10/04/19 09:12 Dose: 2 puff Zolpidem Tartrate (Ambien Tab*) 5 mg PO BEDTIME [facility] Last Admin: 10/03/19 22:09 Dose: 5 mg Vital Signs - 8 hr 10/04/19 10/04/19 10/04/19 06:00 07:42 08:00 Temperature 98.3 F Pulse Rate 59 Respiratory 16 19 19 Rate Blood Pressure 94/61 (mmHg) O2 Sat by Pulse 97 98 98 Oximetry 10/04/19 10/04/19 10/04/19 10:00 12:41 13:10 Temperature 98.8 F Pulse Rate 83 Respiratory 16 18 16 Rate Blood Pressure 118/60 (mmHg) O2 Sat by Pulse 98 98 Oximetry Oxygen Devices in Use Now: None Result Diagrams: 09/30/19 11:20 10/04/19 06:02 Additional Lab and Data: Laboratory Results - last 24 hr 09/30/19 09/30/19 10/01/19 21:58 22:08 02:47 Sodium Potassium Chloride Carbon Dioxide Anion Gap BUN Creatinine Est GFR ( Amer) Est GFR (Non-Af Amer) BUN/Creatinine Ratio Glucose POC Glucose (mg/dL) 138 H 189 H Calcium Phosphorus Magnesium Iron < 20 L TIBC 260 % Saturation 8 L Unsat Iron Binding < 245 Transferrin 186 L Ferritin 53.9 Total Bilirubin AST ALT Alkaline Phosphatase Total Protein Albumin Globulin Albumin/Globulin Ratio Prealbumin Triglycerides Cholesterol Vitamin B12 1013 H Folate > 20.00 10/01/19 10/01/19 10/01/19 05:50 05:58 09:46 Sodium 139 Potassium 3.5 Chloride 108 Carbon Dioxide 29 Anion Gap 2 BUN 5 L Creatinine 0.44 L Est GFR ( Amer) 179.0 Est GFR (Non-Af Amer) 147.9 BUN/Creatinine Ratio 11.4 Glucose 110 H POC Glucose (mg/dL) 138 H 149 H Calcium 8.5 L Phosphorus 2.7 Magnesium 1.9 Iron TIBC % Saturation Unsat Iron Binding Transferrin Ferritin Total Bilirubin 0.20 AST 10 L ALT 8 Alkaline Phosphatase 66 Total Protein 5.9 L Albumin 3.1 L Globulin 2.8 Albumin/Globulin Ratio 1.1 Prealbumin 8 L Triglycerides 94 Cholesterol 104 Vitamin B12 Folate 10/01/19 14:02 Sodium Potassium Chloride Carbon Dioxide Anion Gap BUN Creatinine Est GFR ( Amer) Est GFR (Non-Af Amer) BUN/Creatinine Ratio Glucose POC Glucose (mg/dL) 148 H Calcium Phosphorus Magnesium Iron TIBC % Saturation Unsat Iron Binding Transferrin Ferritin Total Bilirubin AST ALT Alkaline Phosphatase Total Protein Albumin Globulin Albumin/Globulin Ratio Prealbumin Triglycerides Cholesterol Vitamin B12 Folate Microbiology and Other Data: Microbiology 09/27/19 15:59 Aerobic Blood Culture - Preliminary Blood Venous No Growth Day 4 Anaerobic Blood Culture - Preliminary No Growth Day 4 09/27/19 15:37 Aerobic Blood Culture - Preliminary Blood Venous No Growth Day 4 Anaerobic Blood Culture - Preliminary No Growth Day 4 09/27/19 16:34 Skin and Soft Tissue MRSA/MSSA (PCR - Final Abdomen Mrsa Negative S.aureus Negative Gram Stain - Final Wound Culture - Final Klebsiella Pneumoniae Streptococcus Anginosus Enterococcus Faecalis 09/28/19 16:22 Sterile Body Fluid Culture - Preliminary Misc Fluid (See Comment) - Abdominal Klebsiella Pneumoniae Streptococcus Anginosus Enterococcus Faecalis Sterile Body Fluid Culture - Preliminary Klebsiella Pneumoniae Streptococcus Anginosus Enterococcus Faecalis Skin and Soft Tissue MRSA/MSSA (PCR - Final Mrsa Negative S.aureus Negative 09/28/19 16:22 Gram Stain - Final Body Fluid - Abdominal 09/27/19 20:43 Nasal Screen MRSA (PCR) - Final Nasal Mrsa Not Detected Assess/Plan/Problems-Billing Assessment: 58 yr old female with pmh of asthma, hypothyroid, sciatic, viktor; who presented who intraperitoneal collections and spontaneous drainage from midline scar - Patient Problems (1) Intra-abdominal abscess Comment: - Reports pain and nausea improving - Day 4 S/p IR drainage - Management per general surgery - ID consulting. Creftriaxone and Flagyl - TPN and Ice Chips (2) Asthma Comment: - No S/S of exacerbation - Cont home inhalers (3) Hypothyroid Comment: - Continue IV levothyroxine (4) VIKTOR (obstructive sleep apnea) Comment: - Cont supplemental O2 as needed and oxygen saturation monitoring - Continue CPAP at night (5) Full code status (6) DVT prophylaxis Comment: - SCDs per Gen Surg Status and Disposition: Discharge per Surg Attending: Hitesh Aguirre
[2019-10-04] MEDS: TPN CENTRAL STANDARD BASE A CENTR SCH ×12 (17:18)
[2019-10-04] MEDS: Ondansetron ODT TAB* 4 MG SL PRN (18:10)
[2019-10-04] MEDS: Zolpidem TAB* 5 MG PO SCH (21:56)
[2019-10-05] MEDS: HYDROmorphone INJ* 0.5 MG/0.5 ML SYRINGE IV SLOW PU PRN ×2 (00:54→22:24)
[2019-10-05] MEDS: Ondansetron INJ* 2 MG/ML VIAL IV PRN (00:54)
[2019-10-05] MEDS: Ketorolac INJ* 15 MG/ML 1 ML VIAL IV PUSH SCH (02:26)
[2019-10-05] MEDS: metroNIDAZOLE IV 500 MG/100ML* 500 MG/100 ML BAG IVPB SCH ×3 (02:28→17:53)
[2019-10-05 04:47] LABS: Albumin 3.2 g/dL (3.2-5.2); Albumin/Globulin Ratio 1.1 (1-3); BUN/Creatinine Ratio 22.7 (8-20); Calcium 8.7 mg/dL (8.6-10.3); EGFR Non-African American 147.9 (>60); Magnesium 1.8 mg/dL (1.9-2.7); Phosphorus 3.3 mg/dL (2.5-5.0); Potassium 3.8 mmol/L (3.5-5.0); Total Bilirubin 0.2 mg/dL (0.2-1.0); Total Protein 6.2 g/dL (6.4-8.9)
[2019-10-05] MEDS: Levothyroxine INJ* 100 MCG/5 ML VIAL IV SCH (06:02)
[2019-10-05] MEDS: NS 0.9% 1000 ML** 1,000 ML IV SCH ×2 (07:54→16:55)
[2019-10-05] MEDS: SPIRIVA Respimat* (tiotropium) 2.5 mcg/inh Inhaler INH SCH (08:10)
[2019-10-05] MEDS ORDERED: Magnesium Sulfate 1 GM IV* 1 GM/100 ML BAG IV ONE (09:00)
[2019-10-05] MEDS: Acetaminophen TAB* 325 MG PO PRN (09:18)
--- NOTE | 2019-10-05 09:31 | PN ---
Progress Note - Progress Note Date of Service: 10/05/19 SOAP: Subjective: CC: Abdominal Abscess. HPI: Ms. Mendoza is a 58 yo female with PMH significant for asthma, VIKTOR, hypothyroidism, sciatica, and recurrent sigmoid diverticulitis s/p sigmoid colectomy; who presented to the emergency room after her midline ABD incision opened up. S/P placement of a Pigtail drain and started on TPN. Denies fever, chills, nausea, vomiting, or diarrhea. Continues to have right sided ABD pain. She is wanting to eat, she is currently only allowed ice chips. Objective: Vital Signs - 8 hr 10/05/19 10/05/19 10/05/19 02:26 04:06 07:48 Temperature 97.4 F 97.5 F Pulse Rate 58 58 Respiratory 18 18 16 Rate Blood Pressure 116/60 94/53 (mmHg) O2 Sat by Pulse 96 100 Oximetry 10/05/19 10/05/19 07:57 08:11 Temperature Pulse Rate Respiratory 18 Rate Blood Pressure 116/69 (mmHg) O2 Sat by Pulse Oximetry Physical Exam: General: NAD, laying in bed Neurological: Alert and Oriented HEENT: Moist MM Cardiovascular: Heart rate regular Respiratory: Lung sounds clear Abdominal: Bowel sounds present; ABD soft, mild tenderness in lower ABD, and non distended. Pigtail drain to right side of ABD with bile like drainage Skin: No rash Laboratory Results - last 24 hr 10/04/19 10/05/19 10/05/19 17:17 00:47 04:19 Sodium 139 Potassium 3.8 Chloride 112 H Carbon Dioxide 23 Anion Gap 4 BUN 10 Creatinine 0.44 L Est GFR ( Amer) 179.0 Est GFR (Non-Af Amer) 147.9 BUN/Creatinine Ratio 22.7 H Glucose 91 POC Glucose (mg/dL) 132 H 125 H Calcium 8.7 Phosphorus 3.3 Magnesium 1.8 L Total Bilirubin 0.20 AST 12 L ALT 9 Alkaline Phosphatase 61 Total Protein 6.2 L Albumin 3.2 Globulin 3.0 Albumin/Globulin Ratio 1.1 Prealbumin 16 L Triglycerides 140 Cholesterol 93 Microbiology 09/27/19 15:59 Aerobic Blood Culture - Final Blood Venous No Growth Day 5 Anaerobic Blood Culture - Final No Growth Day 5 09/27/19 15:37 Aerobic Blood Culture - Final Blood Venous No Growth Day 5 Anaerobic Blood Culture - Final No Growth Day 5 09/28/19 16:22 Sterile Body Fluid Culture - Final Misc Fluid (See Comment) - Abdominal Klebsiella Pneumoniae Streptococcus Anginosus Enterococcus Faecalis Sterile Body Fluid Culture - Final Klebsiella Pneumoniae Streptococcus Anginosus Enterococcus Faecalis Skin and Soft Tissue MRSA/MSSA (PCR - Final Mrsa Negative S.aureus Negative 09/27/19 16:34 Skin and Soft Tissue MRSA/MSSA (PCR - Final Abdomen Mrsa Negative S.aureus Negative Gram Stain - Final Wound Culture - Final Klebsiella Pneumoniae Streptococcus Anginosus Enterococcus Faecalis 09/28/19 16:22 Gram Stain - Final Body Fluid - Abdominal 09/27/19 20:43 Nasal Screen MRSA (PCR) - Final Nasal Mrsa Not Detected Assessment: 1. Abdominal abscess. S/P sigmoid colectomy in May 2019. CT scan with fluid collection superior to the bladder and air pocket with surgical tract without open wound. S/P pigtail drain placement, with bile like drainage. Continues to have right sided ABD pain, but this is improving. ABD wound and ABD fluid cultures with Klebsiella, strep anginosus, and enterococcus faecalis. She is improving on ABX that do not cover enterococcus, so suspect this is not a pathogen. Blood cultures with no growth on day 5. Afebrile and leukocytosis has resolved. CRP elevated on 09/26 when last checked. 2. VIKTOR. Plan: Continue Ceftriaxone 1 gm IV daily and flagyl 500 mg IV TID. She will need an extended course of IV ABX in the setting of an abdominal abscess. Day 03/18 of ABX. PICC line has been placed. DISCHARGE PLAN: Ceftriaxone 1 gm IV daily to complete a 28 day course and Flagyl to complete a 14 day course, Flagyl can be transitioned to oral if ok with general surgery. She will need to have weekly labs while on IV ABX: CBC, CMP, and CRP. Followup with ID outpatient. 25 minutes floor time: > 50 % spent with the patient discussing recommendations for an extended course of IV ABX and when to call the office.
--- NOTE | 2019-10-05 10:35 | PN ---
Progress Note - Progress Note Date of Service: 10/05/19 SOAP: Subjective: NAD looking well sitting up in bed has been ambulating, 2 loose BM's , no nausea [] Objective: Vital Signs Temp 97.5 F 10/05/19 07:48 Pulse 58 10/05/19 07:48 Resp 18 10/05/19 07:57 BP 116/69 10/05/19 08:11 Pulse Ox 100 10/05/19 07:48 Intake & Output 10/04/19 10/05/19 10/05/19 18:59 06:59 18:59 Intake Total 3958 1273 Output Total 5040 2710 Balance -1082 -1437 Weight 160 lb 11.2 oz Intake: IV Fluids 3693 983 NS (0.9%) 1920 983 TPN 1773 IVPB 265 110 ABX - CEFEPIME 65 ABX - FLAGYL 200 110 Oral 180 Output: Pigtail Drain 40 10 Urine 5000 2700 Other: Date of Last Bowel 10/04/19 Movement # Bowel Movements 1 1 Estimated Stool Amount Medium PEX Gen: Looking well, NAD Chest: CTAB CVS: RRR ABD: soft, non tender on exam today, wound at base of midline incision decreased in depth, no gross purulence, RLQ Pittail with bilious output Ext: calves soft, non tender [] Assessment: 58 yo female with improving open wound at base of prior midline incision, and pig tail drain RLQ placed by IR on 09/27 with decreasing quantity of bilious fluid. Cx's grew out Klebs, Strep, and Enterrococcus. Patient looking much better, ambulated 17 laps yesterday. Decreased nausea,pain meds. [] Plan: drain dresssing changed, wound packing changed. Continue TPN, IV Abx, ambulate, flush lines q shift. ABX needed for three more weeks, see Note from ID for Duration. TPN and Bowel Rest until pig tail drain stops draining. Home TPN and ABX will need to be arranged. Above D/W Dr Ponce and Dr Burrell []
[2019-10-05] MEDS: cefTRIAXone(*) 1 GM in NS 0.9% 50 ML* 50 ML IVPB SCH (11:39)
[2019-10-05] MEDS ORDERED: Lorazepam PYXIS KEY PRN (13:39)
[2019-10-05] MEDS ORDERED: LORazepam INJ* 2 MG/ML 1 ML VIAL ONE (13:42)
[2019-10-05] MEDS: LORazepam INJ* 2 MG/ML 1 ML VIAL IV PUSH PRN (13:47)
--- NOTE | 2019-10-05 15:17 | PN ---
Subjective Date of Service: 10/05/19 Interval History: Experienced mild right lower/mid abdominal pain with transfer into bed. Reports feeling occasionally hungry. Denies lightheadedness, dizziness, chest pain, nausea or vomiting. Denies issues moving bowel or bladder. Stated that she understood that eating at home when she was not supposed to could have contributed to her current situation and states that she will not do so when she goes home except when she is told she can progress her diet. Family History: Unchanged from Admission Social History: Unchanged from Admission Past Medical History: Unchanged from Admission Objective Active Medications: Acetaminophen (Tylenol Tab*) 650 mg PO Q4H PRN PRN Reason: MILD PAIN or TEMP > 100.4 Last Admin: 10/05/19 09:18 Dose: 650 mg Diphenhydramine HCl (Benadryl Iv*) 25 mg IV Q6H PRN PRN Reason: ITCHING Last Admin: 10/02/19 10:14 Dose: 25 mg Heparin Sodium (Porcine) (Heparin Flush Picc/Ml/Cvc(*)) 1 - 3 ml FLUSH 0600, 1800 [facility]; Protocol Last Admin: 10/05/19 05:59 Dose: Not Given Hydromorphone HCl (Dilaudid Inj*) 0.5 mg IV SLOW PU Q4H PRN PRN Reason: PAIN - MODERATE Last Admin: 10/05/19 00:54 Dose: 0.5 mg Sodium Chloride (Ns 0.9% 1000 Ml) 1,000 mls @ 150 mls/hr IV PER RATE [facility] Last Admin: 10/05/19 07:54 Dose: 150 mls/hr Metronidazole/Sodium Chloride (Flagyl 500 Mg Ivpb*) 500 mg in 100 mls @ 100 mls /hr IVPB Q8H [facility] Last Admin: 10/05/19 10:22 Dose: 100 mls/hr Dextrose 500 ml/ Amino Acids 850 ml/ Sterile Water 150 ml/Fat Emulsion Intravenous 250 ml/ Sodium Chloride 100 meq/Potassium Chloride 50 meq/Potassium Phosphate 20 mmole/Calcium Gluconate 10 meq/Magnesium Sulfate 20 meq/ Multivitamins 10 ml/ Trace Metals 1 ml/ Nutrition ( Parenteral) 1,844.0978 mls @ 76.837 mls/hr CENTR 1700 [facility]; Protocol Last Admin: 10/04/19 17:18 Dose: 76.837 mls/hr Ceftriaxone Sodium 1 gm/ (Sodium Chloride) 50 mls @ 100 mls/hr IVPB Q24H [facility] Last Admin: 10/05/19 11:39 Dose: 100 mls/hr Levothyroxine Sodium (Synthroid Inj*) 37.5 mcg IV 0600 [facility] Last Admin: 10/05/19 06:02 Dose: 37.5 mcg Lorazepam (Ativan Inj*) 0.5 mg IV PUSH Q6H PRN PRN Reason: ANXIETY Last Admin: 10/05/19 13:47 Dose: 0.5 mg Miscellaneous (Ativan Pyxis Perry) 1 ea N/A .ATIVAN IV PERRY PRN PRN Reason: PYXIS PERRY Mometasone Furoate/Formoterol Fumar (Dulera 100/5 Mdi*) 2 puff INH BID PRN PRN Reason: WHEEZING Last Admin: 10/03/19 08:30 Dose: 2 puff Ondansetron HCl (Zofran Inj*) 4 mg IV Q6H PRN PRN Reason: NAUSEA/VOMITING Last Admin: 10/05/19 00:54 Dose: 4 mg Ondansetron HCl (Zofran Odt Tab*) 4 mg SL Q6H PRN PRN Reason: NAUSEA/VOMITING Last Admin: 10/04/19 18:10 Dose: 4 mg Throat Lozenges (Chloraseptic Naresh*) 1 naresh PO Q2H PRN PRN Reason: SORE THROAT Last Admin: 10/02/19 05:47 Dose: 1 naresh Tiotropium [place] (Spiriva Respimat 2.5 Mcg) 2 puff INH QAM [facility] Last Admin: 10/05/19 08:10 Dose: 2 puff Zolpidem Tartrate (Ambien Tab*) 5 mg PO BEDTIME [facility] Last Admin: 10/04/19 21:56 Dose: 5 mg Vital Signs - 8 hr 10/05/19 10/05/19 10/05/19 07:48 07:57 08:11 Temperature 97.5 F Pulse Rate 58 Respiratory 16 18 Rate Blood Pressure 94/53 116/69 (mmHg) O2 Sat by Pulse 100 Oximetry 10/05/19 10/05/19 12:01 13:47 Temperature 97.5 F Pulse Rate 50 Respiratory 16 20 Rate Blood Pressure 117/70 (mmHg) O2 Sat by Pulse 98 Oximetry Oxygen Devices in Use Now: None Appearance: This is a well developed woman seen sitting up in bed, no acute distress. Eyes: No Scleral Icterus, PERRLA Ears/Nose/Mouth/Throat: NL Teeth, Lips, Gums, Clear Oropharnyx, Mucous Membranes Moist Neck: NL Appearance and Movements; NL JVP, Trachea Midline Respiratory: Symmetrical Chest Expansion and Respiratory Effort, Clear to Auscultation Cardiovascular: NL Sounds; No Murmurs; No JVD, RRR, No Edema Abdominal: - - Softly distended, tender throughout right side, +BSx4. Lymphatic: No Cervical Adenopathy Extremities: No Edema, No Clubbing, Cyanosis Skin: No Rash or Ulcers, No Nodules or Sclerosis Neurological: Alert and Oriented x 3 Lines/Tubes/Other Access: Clean, Dry and Intact Peripheral IV Result Diagrams: 09/30/19 11:20 10/05/19 04:19 Additional Lab and Data: Laboratory Results - last 24 hr 09/30/19 09/30/19 10/01/19 21:58 22:08 02:47 Sodium Potassium Chloride Carbon Dioxide Anion Gap BUN Creatinine Est GFR ( Amer) Est GFR (Non-Af Amer) BUN/Creatinine Ratio Glucose POC Glucose (mg/dL) 138 H 189 H Calcium Phosphorus Magnesium Iron < 20 L TIBC 260 % Saturation 8 L Unsat Iron Binding < 245 Transferrin 186 L Ferritin 53.9 Total Bilirubin AST ALT Alkaline Phosphatase Total Protein Albumin Globulin Albumin/Globulin Ratio Prealbumin Triglycerides Cholesterol Vitamin B12 1013 H Folate > 20.00 10/01/19 10/01/19 10/01/19 05:50 05:58 09:46 Sodium 139 Potassium 3.5 Chloride 108 Carbon Dioxide 29 Anion Gap 2 BUN 5 L Creatinine 0.44 L Est GFR ( Amer) 179.0 Est GFR (Non-Af Amer) 147.9 BUN/Creatinine Ratio 11.4 Glucose 110 H POC Glucose (mg/dL) 138 H 149 H Calcium 8.5 L Phosphorus 2.7 Magnesium 1.9 Iron TIBC % Saturation Unsat Iron Binding Transferrin Ferritin Total Bilirubin 0.20 AST 10 L ALT 8 Alkaline Phosphatase 66 Total Protein 5.9 L Albumin 3.1 L Globulin 2.8 Albumin/Globulin Ratio 1.1 Prealbumin 8 L Triglycerides 94 Cholesterol 104 Vitamin B12 Folate 10/01/19 14:02 Sodium Potassium Chloride Carbon Dioxide Anion Gap BUN Creatinine Est GFR ( Amer) Est GFR (Non-Af Amer) BUN/Creatinine Ratio Glucose POC Glucose (mg/dL) 148 H Calcium Phosphorus Magnesium Iron TIBC % Saturation Unsat Iron Binding Transferrin Ferritin Total Bilirubin AST ALT Alkaline Phosphatase Total Protein Albumin Globulin Albumin/Globulin Ratio Prealbumin Triglycerides Cholesterol Vitamin B12 Folate Microbiology and Other Data: Microbiology 09/27/19 15:59 Aerobic Blood Culture - Preliminary Blood Venous No Growth Day 4 Anaerobic Blood Culture - Preliminary No Growth Day 4 09/27/19 15:37 Aerobic Blood Culture - Preliminary Blood Venous No Growth Day 4 Anaerobic Blood Culture - Preliminary No Growth Day 4 09/27/19 16:34 Skin and Soft Tissue MRSA/MSSA (PCR - Final Abdomen Mrsa Negative S.aureus Negative Gram Stain - Final Wound Culture - Final Klebsiella Pneumoniae Streptococcus Anginosus Enterococcus Faecalis 09/28/19 16:22 Sterile Body Fluid Culture - Preliminary Misc Fluid (See Comment) - Abdominal Klebsiella Pneumoniae Streptococcus Anginosus Enterococcus Faecalis Sterile Body Fluid Culture - Preliminary Klebsiella Pneumoniae Streptococcus Anginosus Enterococcus Faecalis Skin and Soft Tissue MRSA/MSSA (PCR - Final Mrsa Negative S.aureus Negative 09/28/19 16:22 Gram Stain - Final Body Fluid - Abdominal 09/27/19 20:43 Nasal Screen MRSA (PCR) - Final Nasal Mrsa Not Detected Assess/Plan/Problems-Billing Assessment: 58 yr old female with pmh of asthma, hypothyroid, sciatic, viktor; who presented who intraperitoneal collections and spontaneous drainage from midline scar - Patient Problems (1) Intra-abdominal abscess Current Visit: Yes Status: Acute Code(s): K65.1 - PERITONEAL ABSCESS SNOMED Code(s): 04850592 Comment: - No longer nauseated. Pain is tolerable. - Day 5 S/p IR drainage. T-tube in place to right lower/mid quadrant. - Management per general surgery - ID consulting. Requiring a total of 2 weeks of metronidazole and 4 weeks of ceftriaxone. On day 8 currently. - TPN and Ice Chips (2) Asthma Current Visit: No Status: Acute Code(s): J45.909 - UNSPECIFIED ASTHMA, UNCOMPLICATED SNOMED Code(s): 697446000 Comment: - No S/S of exacerbation - Continue spiriva and dulera. (3) DVT prophylaxis Current Visit: No Status: Acute Code(s): Z29.9 - ENCOUNTER FOR PROPHYLACTIC MEASURES, UNSPECIFIED SNOMED Code(s): 196954972 Comment: - SCDs (4) Hypothyroid Current Visit: No Status: Acute Code(s): E03.9 - HYPOTHYROIDISM, UNSPECIFIED SNOMED Code(s): 91412196 Comment: - Continue IV levothyroxine (5) VIKTOR (obstructive sleep apnea) Current Visit: No Status: Acute Code(s): G47.33 - OBSTRUCTIVE SLEEP APNEA ( ADULT) (PEDIATRIC) SNOMED Code(s): 40690268 Comment: - Cont supplemental O2 as needed and oxygen saturation monitoring - Continue CPAP at night (6) Full code status Current Visit: No Status: Acute Code(s): Z78.9 - OTHER SPECIFIED HEALTH STATUS SNOMED Code(s): 525889271 Status and Disposition: Condition: Fair Dispo: Inpatient on [facility] Attending: Hitesh Aguirre
[2019-10-05] MEDS: TPN CENTRAL STANDARD BASE A CENTR SCH ×12 (16:53)
[2019-10-05] MEDS: Zolpidem TAB* 5 MG PO SCH (22:25)
[2019-10-05] MEDS: Ondansetron ODT TAB* 4 MG SL PRN (22:31)
[2019-10-06] MEDS: NS 0.9% 1000 ML** 1,000 ML IV SCH (00:36)
[2019-10-06] MEDS: metroNIDAZOLE IV 500 MG/100ML* 500 MG/100 ML BAG IVPB SCH ×3 (02:32→17:29)
[2019-10-06] MEDS: Levothyroxine INJ* 100 MCG/5 ML VIAL IV SCH (05:54)
[2019-10-06] MEDS: SPIRIVA Respimat* (tiotropium) 2.5 mcg/inh Inhaler INH SCH (07:57)
--- NOTE | 2019-10-06 08:46 | PN ---
Subjective Date of Service: 10/06/19 Interval History: Patient stated that she was feeling well, passing flatus. Having urinary frequency without burning or discomfort, will cut down on IV fluids. Denies lightheadedness, dizziness, chest pain, abdominal pain, nausea, vomiting, or issues moving her bowels. States she is eager to go home if possible. Family History: Unchanged from Admission Social History: Unchanged from Admission Past Medical History: Unchanged from Admission Objective Active Medications: Acetaminophen (Tylenol Tab*) 650 mg PO Q4H PRN PRN Reason: MILD PAIN or TEMP > 100.4 Last Admin: 10/05/19 09:18 Dose: 650 mg Diphenhydramine HCl (Benadryl Iv*) 25 mg IV Q6H PRN PRN Reason: ITCHING Last Admin: 10/02/19 10:14 Dose: 25 mg Heparin Sodium (Porcine) (Heparin Flush Picc/Ml/Cvc(*)) 1 - 3 ml FLUSH 0600, 1800 [facility]; Protocol Last Admin: 10/06/19 05:42 Dose: Not Given Hydromorphone HCl (Dilaudid Inj*) 0.5 mg IV SLOW PU Q4H PRN PRN Reason: PAIN - MODERATE Last Admin: 10/05/19 22:24 Dose: 0.5 mg Sodium Chloride (Ns 0.9% 1000 Ml) 1,000 mls @ 150 mls/hr IV PER RATE [facility] Last Admin: 10/06/19 00:36 Dose: 150 mls/hr Metronidazole/Sodium Chloride (Flagyl 500 Mg Ivpb*) 500 mg in 100 mls @ 100 mls /hr IVPB Q8H [facility] Last Admin: 10/06/19 02:32 Dose: 100 mls/hr Dextrose 500 ml/ Amino Acids 850 ml/ Sterile Water 150 ml/Fat Emulsion Intravenous 250 ml/ Sodium Chloride 100 meq/Potassium Chloride 50 meq/Potassium Phosphate 20 mmole/Calcium Gluconate 10 meq/Magnesium Sulfate 20 meq/ Multivitamins 10 ml/ Trace Metals 1 ml/ Nutrition ( Parenteral) 1,844.0978 mls @ 76.837 mls/hr CENTR 1700 [facility]; Protocol Last Admin: 10/05/19 16:53 Dose: 76.837 mls/hr Ceftriaxone Sodium 1 gm/ (Sodium Chloride) 50 mls @ 100 mls/hr IVPB Q24H [facility] Last Admin: 10/05/19 11:39 Dose: 100 mls/hr Levothyroxine Sodium (Synthroid Inj*) 37.5 mcg IV 0600 [facility] Last Admin: 10/06/19 05:54 Dose: 37.5 mcg Lorazepam (Ativan Inj*) 0.5 mg IV PUSH Q6H PRN PRN Reason: ANXIETY Last Admin: 10/05/19 13:47 Dose: 0.5 mg Miscellaneous (Ativan Pyxis Perry) 1 ea N/A .ATIVAN IV PERRY PRN PRN Reason: PYXIS PERRY Mometasone Furoate/Formoterol Fumar (Dulera 100/5 Mdi*) 2 puff INH BID PRN PRN Reason: WHEEZING Last Admin: 10/03/19 08:30 Dose: 2 puff Ondansetron HCl (Zofran Inj*) 4 mg IV Q6H PRN PRN Reason: NAUSEA/VOMITING Last Admin: 10/05/19 00:54 Dose: 4 mg Ondansetron HCl (Zofran Odt Tab*) 4 mg SL Q6H PRN PRN Reason: NAUSEA/VOMITING Last Admin: 10/05/19 22:31 Dose: 4 mg Throat Lozenges (Chloraseptic Naresh*) 1 naresh PO Q2H PRN PRN Reason: SORE THROAT Last Admin: 10/02/19 05:47 Dose: 1 naresh Tiotropium [place] (Spiriva Respimat 2.5 Mcg) 2 puff INH QAM [facility] Last Admin: 10/06/19 07:57 Dose: 2 puff Zolpidem Tartrate (Ambien Tab*) 5 mg PO BEDTIME [facility] Last Admin: 10/05/19 22:25 Dose: 5 mg Vital Signs - 8 hr 10/06/19 10/06/19 04:00 08:36 Temperature 97.8 F 98.1 F Pulse Rate 65 72 Respiratory 16 17 Rate Blood Pressure 97/65 117/58 (mmHg) O2 Sat by Pulse 99 100 Oximetry Oxygen Devices in Use Now: None Appearance: This is a well developed woman seen resting in bed, no acute distress. Eyes: No Scleral Icterus, PERRLA Ears/Nose/Mouth/Throat: NL Teeth, Lips, Gums, Clear Oropharnyx, Mucous Membranes Moist Neck: NL Appearance and Movements; NL JVP, Trachea Midline Respiratory: Symmetrical Chest Expansion and Respiratory Effort, Clear to Auscultation Cardiovascular: NL Sounds; No Murmurs; No JVD, RRR, No Edema Abdominal: NL Sounds; No Tenderness; No Distention Lymphatic: No Cervical Adenopathy Extremities: No Edema, No Clubbing, Cyanosis Skin: No Rash or Ulcers, No Nodules or Sclerosis, - - Dressinf over right lower quadrant t-tube site is clean, dry and intact. Dressing over midline fistula is clean, dry and intact. Fistula wound edges benign. Neurological: Alert and Oriented x 3 Lines/Tubes/Other Access: Clean, Dry and Intact Peripheral IV, Clean, Dry and Intact Other Access - t-tube to RLQ Result Diagrams: 09/30/19 11:20 10/06/19 12:00 Additional Lab and Data: Laboratory Results - last 24 hr 09/30/19 09/30/19 10/01/19 21:58 22:08 02:47 Sodium Potassium Chloride Carbon Dioxide Anion Gap BUN Creatinine Est GFR ( Amer) Est GFR (Non-Af Amer) BUN/Creatinine Ratio Glucose POC Glucose (mg/dL) 138 H 189 H Calcium Phosphorus Magnesium Iron < 20 L TIBC 260 % Saturation 8 L Unsat Iron Binding < 245 Transferrin 186 L Ferritin 53.9 Total Bilirubin AST ALT Alkaline Phosphatase Total Protein Albumin Globulin Albumin/Globulin Ratio Prealbumin Triglycerides Cholesterol Vitamin B12 1013 H Folate > 20.00 10/01/19 10/01/19 10/01/19 05:50 05:58 09:46 Sodium 139 Potassium 3.5 Chloride 108 Carbon Dioxide 29 Anion Gap 2 BUN 5 L Creatinine 0.44 L Est GFR ( Amer) 179.0 Est GFR (Non-Af Amer) 147.9 BUN/Creatinine Ratio 11.4 Glucose 110 H POC Glucose (mg/dL) 138 H 149 H Calcium 8.5 L Phosphorus 2.7 Magnesium 1.9 Iron TIBC % Saturation Unsat Iron Binding Transferrin Ferritin Total Bilirubin 0.20 AST 10 L ALT 8 Alkaline Phosphatase 66 Total Protein 5.9 L Albumin 3.1 L Globulin 2.8 Albumin/Globulin Ratio 1.1 Prealbumin 8 L Triglycerides 94 Cholesterol 104 Vitamin B12 Folate 10/01/19 14:02 Sodium Potassium Chloride Carbon Dioxide Anion Gap BUN Creatinine Est GFR ( Amer) Est GFR (Non-Af Amer) BUN/Creatinine Ratio Glucose POC Glucose (mg/dL) 148 H Calcium Phosphorus Magnesium Iron TIBC % Saturation Unsat Iron Binding Transferrin Ferritin Total Bilirubin AST ALT Alkaline Phosphatase Total Protein Albumin Globulin Albumin/Globulin Ratio Prealbumin Triglycerides Cholesterol Vitamin B12 Folate Microbiology and Other Data: Microbiology 09/27/19 15:59 Aerobic Blood Culture - Preliminary Blood Venous No Growth Day 4 Anaerobic Blood Culture - Preliminary No Growth Day 4 09/27/19 15:37 Aerobic Blood Culture - Preliminary Blood Venous No Growth Day 4 Anaerobic Blood Culture - Preliminary No Growth Day 4 09/27/19 16:34 Skin and Soft Tissue MRSA/MSSA (PCR - Final Abdomen Mrsa Negative S.aureus Negative Gram Stain - Final Wound Culture - Final Klebsiella Pneumoniae Streptococcus Anginosus Enterococcus Faecalis 09/28/19 16:22 Sterile Body Fluid Culture - Preliminary Misc Fluid (See Comment) - Abdominal Klebsiella Pneumoniae Streptococcus Anginosus Enterococcus Faecalis Sterile Body Fluid Culture - Preliminary Klebsiella Pneumoniae Streptococcus Anginosus Enterococcus Faecalis Skin and Soft Tissue MRSA/MSSA (PCR - Final Mrsa Negative S.aureus Negative 09/28/19 16:22 Gram Stain - Final Body Fluid - Abdominal 09/27/19 20:43 Nasal Screen MRSA (PCR) - Final Nasal Mrsa Not Detected Assess/Plan/Problems-Billing Assessment: 58 yr old female with pmh of asthma, hypothyroid, sciatic, viktor; who presented who intraperitoneal collections and spontaneous drainage from midline scar - Patient Problems (1) Intra-abdominal abscess Current Visit: Yes Status: Acute Code(s): K65.1 - PERITONEAL ABSCESS SNOMED Code(s): 15637267 Comment: - No longer nauseated. Pain is tolerable. - Day 6 S/p IR drainage. T-tube in place to right lower/mid quadrant. Color is household personal assistant green than yesterday. - Management per general surgery - ID consulting. Requiring a total of 2 weeks of metronidazole and 4 weeks of ceftriaxone. On day 8 currently. - TPN and Ice Chips (2) Asthma Current Visit: No Status: Acute Code(s): J45.909 - UNSPECIFIED ASTHMA, UNCOMPLICATED SNOMED Code(s): 486936702 Comment: - No S/S of exacerbation - Continue spiriva and dulera. (3) DVT prophylaxis Current Visit: No Status: Acute Code(s): Z29.9 - ENCOUNTER FOR PROPHYLACTIC MEASURES, UNSPECIFIED SNOMED Code(s): 992810065 Comment: - SCDs (4) Hypothyroid Current Visit: No Status: Acute Code(s): E03.9 - HYPOTHYROIDISM, UNSPECIFIED SNOMED Code(s): 10768539 Comment: - Continue IV levothyroxine (5) VIKTOR (obstructive sleep apnea) Current Visit: No Status: Acute Code(s): G47.33 - OBSTRUCTIVE SLEEP APNEA ( ADULT) (PEDIATRIC) SNOMED Code(s): 64417588 Comment: - Cont supplemental O2 as needed and oxygen saturation monitoring - Continue CPAP at night (6) Full code status Current Visit: No Status: Acute Code(s): Z78.9 - OTHER SPECIFIED HEALTH STATUS SNOMED Code(s): 938695616 Status and Disposition: Condition: Fair Dispo: Inpatient on [facility] Attending: Caitlin Pappas
--- NOTE | 2019-10-06 09:09 | PN ---
Progress Note - Progress Note Date of Service: 10/06/19 SOAP: Subjective: CC: Abdominal Abscess HPI: Ms. Mendoza is a 58 yo female with PMH significant for asthma, VIKTOR, hypothyroidism, sciatica, and recurrent sigmoid diverticulitis s/p sigmoid colectomy; who presented to the emergency room after her midline ABD incision opened up. S/P placement of a Pigtail drain and started on TPN. Denies fever, chills, nausea, vomiting, or diarrhea. Continues to have right sided ABD pain, this is improving. Currently allowed ice chips. Objective: Vital Signs - 8 hr 10/06/19 10/06/19 04:00 08:36 Temperature 97.8 F 98.1 F Pulse Rate 65 72 Respiratory 16 17 Rate Blood Pressure 97/65 117/58 (mmHg) O2 Sat by Pulse 99 100 Oximetry Physical Exam: General: NAD, laying in bed Neurological: Alert and Oriented HEENT: Moist MM Cardiovascular: Heart rate regular Respiratory: Lung sounds clear Abdominal: Bowel sounds present; ABD soft, mild tenderness in lower ABD, and non distended. Pigtail drain to right side of ABD with clear, slight bile tinged drainage Skin: No rash Laboratory Tests 09/30/19 10/05/19 11:20 04:19 WBC 9.1 Hgb 8.8 L Hct 28 L Plt Count 285 Sodium 139 Potassium 3.8 Chloride 112 H Carbon Dioxide 23 BUN 10 Creatinine 0.44 L Glucose 91 Microbiology 09/27/19 15:59 Aerobic Blood Culture - Final Blood Venous No Growth Day 5 Anaerobic Blood Culture - Final No Growth Day 5 09/27/19 15:37 Aerobic Blood Culture - Final Blood Venous No Growth Day 5 Anaerobic Blood Culture - Final No Growth Day 5 09/28/19 16:22 Sterile Body Fluid Culture - Final Misc Fluid (See Comment) - Abdominal Klebsiella Pneumoniae Streptococcus Anginosus Enterococcus Faecalis Sterile Body Fluid Culture - Final Klebsiella Pneumoniae Streptococcus Anginosus Enterococcus Faecalis Skin and Soft Tissue MRSA/MSSA (PCR - Final Mrsa Negative S.aureus Negative 09/27/19 16:34 Skin and Soft Tissue MRSA/MSSA (PCR - Final Abdomen Mrsa Negative S.aureus Negative Gram Stain - Final Wound Culture - Final Klebsiella Pneumoniae Streptococcus Anginosus Enterococcus Faecalis 09/28/19 16:22 Gram Stain - Final Body Fluid - Abdominal 09/27/19 20:43 Nasal Screen MRSA (PCR) - Final Nasal Mrsa Not Detected Assessment: 1. Abdominal abscess. S/P sigmoid colectomy in May 2019. CT scan with fluid collection superior to the bladder and air pocket with surgical tract without open wound. S/P pigtail drain placement, with bile like drainage initially, this is starting to clear up. Continues to have right sided ABD pain , but this is improving. ABD wound and ABD fluid cultures with Klebsiella, strep anginosus, and enterococcus faecalis. She is improving on ABX that do not cover enterococcus, so suspect this is not a pathogen. Blood cultures with no growth on day 5. Afebrile and leukocytosis has resolved. CRP elevated on 09/26 when last checked. 2. VIKTOR. Plan: Continue Ceftriaxone 1 gm IV daily. Change flagyl to 500 mg PO BID. She will need an extended course of IV ABX in the setting of an abdominal abscess. Day of ABX. PICC line has been placed. DISCHARGE PLAN: Ceftriaxone 1 gm IV daily to complete a 28 day course and Flagyl 500 mg PO BID to complete a 14 day course. She will need to have weekly labs while on IV ABX: CBC, CMP, and CRP. Followup with ID outpatient. 25 minutes floor time: > 50% spent with the patient discussing home IV ABX, followup, when to call the office (fever, rash, diarrhea)
[2019-10-06 10:55] LABS: ALT 8 U/L (7-52); Albumin 3.2 g/dL (3.2-5.2); Albumin/Globulin Ratio 1.3 (1-3); Alkaline Phosphatase 59 U/L (34-104); BUN/Creatinine Ratio 15.6 (8-20); Blood Urea Nitrogen 10 mg/dL (6-24); CO2 Carbon Dioxide 19 mmol/L (22-32); Calcium 9.1 mg/dL (8.6-10.3); Chloride 103 mmol/L (101-111); Cholesterol 87 mg/dL; EGFR African American 116.1 (>60); Globulin 2.5 g/dL (2-4); Phosphorus 7.4 mg/dL (2.5-5.0); Sodium 123 mmol/L (135-145); Total Protein 5.7 g/dL (6.4-8.9); Triglycerides 834 mg/dL
[2019-10-06 10:57] LABS: Prealbumin 14 mg/dL (18-38)
--- NOTE | 2019-10-06 11:09 | PN ---
Progress Note - Progress Note Date of Service: 10/06/19 Note: S: Reports she is feeling better, no nausea, emesis, fever, chills. Ambulating frequently with no issue. Passing BMs. Diffuse abdominal discomfort remains, though is slightly less today. O: Temp Pulse Resp BP Pulse Ox 98.1 F 72 17 117/58 100 10/06/19 08:36 10/06/19 08:36 10/06/19 08:45 10/06/19 08:36 10/06/19 08:36 Intake and Output Last 24 Hours 10/04/19 10/05/19 10/06/19 10/07/19 06:59 06:59 06:59 06:59 Intake Total 4349 5231 4753 990 Output Total 5740 7750 4385 750 Balance -1391 -1709 368 240 Weight 160 lb 11.2 oz Intake: IV Fluids 2616 4676 4743 990 NS (0.9%) 2616 2903 2964 990 TPN 1773 1779 IVPB 110 375 ABX - CEFEPIME 65 ABX - FLAGYL 110 310 TPN/PPN 1593 Oral 0 180 0 Pigtail Drain 30 10 Output: Abdominal Drain 40 Pigtail Drain 40 50 45 Urine 5700 7700 4300 750 Other: Estimated Void Small Date of Last Bowel 10/04/19 Movement # Bowel Movements 1 1 Estimated Stool Amount Small Medium Medium PEX General: Alert, in NAD. Integumentary: No jaundice or rashes. HEENT: Oropharynx clear. PERRLA. Heart: RRR. Lungs: CTAB. ABD: Soft, nondistended. BS present. Tender in lower abdomen. Approximately 1 cm open lower midline wound, no purulence appreciated. Pigtail drain in RLQ with bilious output. Extremities: Calves soft and nontender. Distal pulses intact bilaterally. No edema. Assessment and plan: 58 yo F with improving lower abdominal open wound at site of prior midline incision, s/p IR pigtail drain placement in RLQ on 09/27 with bilious output lessening. She appears to be improving. Continue TPN, iv antibiotics, ambulation. Wound was repacked with moistened 4x4, appears more shallow and smaller in diameter than previous days. Dressings changed. Possible discharge home in the near future on antibiotics and TPN. Will be on TPN until bowel is sufficiently rested and pigtail ceases output.
[2019-10-06 11:24] LABS: Anion Gap 1 mmol/L (2-11); Glucose 1305 mg/dL (70-100)
[2019-10-06] MEDS: Ondansetron INJ* 2 MG/ML VIAL IV PRN (11:56)
[2019-10-06] MEDS: HYDROmorphone INJ* 0.5 MG/0.5 ML SYRINGE IV SLOW PU PRN (11:56)
[2019-10-06] MEDS: cefTRIAXone(*) 1 GM in NS 0.9% 50 ML* 50 ML IVPB SCH (11:56)
[2019-10-06] MEDS: LORazepam INJ* 2 MG/ML 1 ML VIAL IV PUSH PRN ×2 (11:56→20:51)
[2019-10-06 12:28] LABS: Magnesium 1.9 mg/dL (1.9-2.7); Potassium Redraw 3.8 mmol/L (3.5-5.0)
[2019-10-06 12:55] LABS: Albumin 3.7 g/dL (3.2-5.2); Albumin/Globulin Ratio 1.2 (1-3); Calcium 8.9 mg/dL (8.6-10.3); EGFR African American 154.4 (>60); EGFR Non-African American 127.6 (>60); Magnesium 1.9 mg/dL (1.9-2.7); Phosphorus 3.5 mg/dL (2.5-5.0); Potassium 3.9 mmol/L (3.5-5.0); Total Bilirubin 0.2 mg/dL (0.2-1.0); Total Protein 6.7 g/dL (6.4-8.9)
[2019-10-06] MEDS: TPN CENTRAL STANDARD BASE A CENTR SCH ×12 (17:29)
[2019-10-06] MEDS: Zolpidem TAB* 5 MG PO SCH (20:51)
[2019-10-07] MEDS: Levothyroxine INJ* 100 MCG/5 ML VIAL IV SCH (06:24)
[2019-10-07] MEDS: SPIRIVA Respimat* (tiotropium) 2.5 mcg/inh Inhaler INH SCH (09:44)
[2019-10-07] MEDS: metroNIDAZOLE TAB* 250 MG PO SCH ×2 (10:07→21:01)
[2019-10-07] MEDS: LORazepam INJ* 2 MG/ML 1 ML VIAL IV PUSH PRN (11:01)
[2019-10-07] MEDS: cefTRIAXone(*) 1 GM in NS 0.9% 50 ML* 50 ML IVPB SCH (11:01)
--- NOTE | 2019-10-07 11:30 | PN ---
Progress Note - Progress Note Date of Service: 10/07/19 SOAP: Subjective: NAD, Wants to go home + Flatus, BM, No Nausea, Ambulating well [] Objective: Vital Signs Temp 98.5 F 10/07/19 08:50 Pulse 61 10/07/19 08:50 Resp 16 10/07/19 08:50 BP 94/57 10/07/19 08:50 Pulse Ox 98 10/07/19 08:50 Intake & Output 10/06/19 10/07/19 10/07/19 18:59 06:59 18:59 Intake Total 2879 110 Output Total 1270 25 Balance 1609 85 Weight 160 lb Intake: IV Fluids 2819 NS (0.9%) 990 TPN 1829 IVPB 60 100 ABX - CEFTRIAXONE 60 ABX - FLAGYL 100 Oral 0 Pigtail Drain 10 Output: Pigtail Drain 20 25 Urine 1250 Other: Estimated Void Medium Medium Date of Last Bowel 10/06/19 Movement Estimated Stool Amount Medium # Voids 4 1 PEX Gen: Looking well, NAD Chest: CTAB CVS: RRR ABD: soft, non tender on exam today, wound at base of midline incision decreased in depth, no gross purulence, RLQ Pigtail with bilious output Ext: calves soft, non tender Assessment: 58 yo female continues with improving open wound at base of prior midline incision, and pig tail drain RLQ, placed by IR on 09/27, with bilious non purulent fluid. Cx's grew out Klebs, Strep, and Enterococcus. Patient looking well, ambulatimg well. [] Plan: Wound packing changed. Continue TPN, IV Abx, ambulate, flush lines q shift. ABX needed for three more weeks, see Note from ID for Duration. OK to go with PO Flagyl. TPN and Bowel Rest until pig tail drain stops draining. Home TPN and ABX are being arranged. Home care poss ready for tomorrow 10/07. Above D/W Dr Burrell.
--- NOTE | 2019-10-07 13:08 | PN ---
Subjective Date of Service: 10/07/19 Interval History: Feeling frustrated that she is unable to go home today. Requesting hard candy/ gum to have different flavors in her mouth, passed request onto LD Hackett. Otherwise she states she is doing well. Denies lightheadedness, dizziness, chest pain, abdominal pain, nausea, vomiting, issues moving bowel or bladder. Noted that patient had been regularly using ativan while in the hospital, queried as to whether or not she had any at home. She was given a prescription after her original surgery, but has no more. Suggested she think about possibly using an SSRI to control her anxiety to avoid physical dependence and possible withdrawal syndrome. Family History: Unchanged from Admission Social History: Unchanged from Admission Past Medical History: Unchanged from Admission Objective Active Medications: Acetaminophen (Tylenol Tab*) 650 mg PO Q4H PRN PRN Reason: MILD PAIN or TEMP > 100.4 Last Admin: 10/05/19 09:18 Dose: 650 mg Diphenhydramine HCl (Benadryl Iv*) 25 mg IV Q6H PRN PRN Reason: ITCHING Last Admin: 10/02/19 10:14 Dose: 25 mg Heparin Sodium (Porcine) (Heparin Flush Picc/Ml/Cvc(*)) 1 - 3 ml FLUSH 0600, 1800 GRUPO; Protocol Last Admin: 10/07/19 12:10 Dose: 1 ml Hydromorphone HCl (Dilaudid Inj*) 0.5 mg IV SLOW PU Q4H PRN PRN Reason: PAIN - MODERATE Last Admin: 10/06/19 11:56 Dose: 0.5 mg Dextrose 500 ml/ Amino Acids 850 ml/ Sterile Water 150 ml/Fat Emulsion Intravenous 250 ml/ Sodium Chloride 100 meq/Potassium Chloride 50 meq/Potassium Phosphate 20 mmole/Calcium Gluconate 10 meq/Magnesium Sulfate 20 meq/ Multivitamins 10 ml/ Trace Metals 1 ml/ Nutrition ( Parenteral) 1,844.0978 mls @ 76.837 mls/hr CENTR 1700 GRUPO; Protocol Last Admin: 10/06/19 17:29 Dose: 76.837 mls/hr Ceftriaxone Sodium 1 gm/ (Sodium Chloride) 50 mls @ 100 mls/hr IVPB Q24H GRUPO Last Admin: 10/07/19 11:01 Dose: 100 mls/hr Levothyroxine Sodium (Synthroid Inj*) 37.5 mcg IV 0600 [facility] Last Admin: 10/07/19 06:24 Dose: 37.5 mcg Lorazepam (Ativan Inj*) 0.5 mg IV PUSH Q6H PRN PRN Reason: ANXIETY Last Admin: 10/07/19 11:01 Dose: 0.5 mg Metronidazole (Flagyl Tab*) 500 mg PO BID [facility] Last Admin: 10/07/19 10:07 Dose: 500 mg Miscellaneous (Ativan Pyxis Perry) 1 ea N/A .ATIVAN IV PERRY PRN PRN Reason: PYXIS PERRY Mometasone Furoate/Formoterol Fumar (Dulera 100/5 Mdi*) 2 puff INH BID PRN PRN Reason: WHEEZING Last Admin: 10/03/19 08:30 Dose: 2 puff Ondansetron HCl (Zofran Inj*) 4 mg IV Q6H PRN PRN Reason: NAUSEA/VOMITING Last Admin: 10/06/19 11:56 Dose: 4 mg Ondansetron HCl (Zofran Odt Tab*) 4 mg SL Q6H PRN PRN Reason: NAUSEA/VOMITING Last Admin: 10/05/19 22:31 Dose: 4 mg Throat Lozenges (Chloraseptic Naresh*) 1 naresh PO Q2H PRN PRN Reason: SORE THROAT Last Admin: 10/02/19 05:47 Dose: 1 naresh Tiotropium [place] (Spiriva Respimat 2.5 Mcg) 2 puff INH QAM [facility] Last Admin: 10/07/19 09:44 Dose: 2 puff Zolpidem Tartrate (Ambien Tab*) 5 mg PO BEDTIME [facility] Last Admin: 10/06/19 20:51 Dose: 5 mg Vital Signs - 8 hr 10/07/19 10/07/19 10/07/19 08:50 11:01 12:11 Temperature 98.5 F 98.3 F Pulse Rate 61 70 Respiratory 18 16 18 Rate Blood Pressure 94/57 98/60 (mmHg) O2 Sat by Pulse 98 100 Oximetry Oxygen Devices in Use Now: None Appearance: This is a well developed woman seen walking around room independently, gait steady, in no acute distress. Eyes: No Scleral Icterus, PERRLA Ears/Nose/Mouth/Throat: NL Teeth, Lips, Gums, Mucous Membranes Moist Neck: NL Appearance and Movements; NL JVP, Trachea Midline Respiratory: Symmetrical Chest Expansion and Respiratory Effort, Clear to Auscultation Cardiovascular: NL Sounds; No Murmurs; No JVD, RRR, No Edema Abdominal: NL Sounds; No Tenderness; No Distention Lymphatic: No Cervical Adenopathy Extremities: No Edema, No Clubbing, Cyanosis Skin: No Rash or Ulcers, No Nodules or Sclerosis, - - T-tube to right lower quadrant draining brownish green, cloudy fluid. Dressing to midline abdomen is clena, dry and intact. Neurological: Alert and Oriented x 3 Lines/Tubes/Other Access: Clean, Dry and Intact Peripheral IV, Clean, Dry and Intact Other Access - T-tube Nutrition: Taking PO's Result Diagrams: 09/30/19 11:20 10/06/19 12:00 Additional Lab and Data: Laboratory Results - last 24 hr 09/30/19 09/30/19 10/01/19 21:58 22:08 02:47 Sodium Potassium Chloride Carbon Dioxide Anion Gap BUN Creatinine Est GFR ( Amer) Est GFR (Non-Af Amer) BUN/Creatinine Ratio Glucose POC Glucose (mg/dL) 138 H 189 H Calcium Phosphorus Magnesium Iron < 20 L TIBC 260 % Saturation 8 L Unsat Iron Binding < 245 Transferrin 186 L Ferritin 53.9 Total Bilirubin AST ALT Alkaline Phosphatase Total Protein Albumin Globulin Albumin/Globulin Ratio Prealbumin Triglycerides Cholesterol Vitamin B12 1013 H Folate > 20.00 10/01/19 10/01/19 10/01/19 05:50 05:58 09:46 Sodium 139 Potassium 3.5 Chloride 108 Carbon Dioxide 29 Anion Gap 2 BUN 5 L Creatinine 0.44 L Est GFR ( Amer) 179.0 Est GFR (Non-Af Amer) 147.9 BUN/Creatinine Ratio 11.4 Glucose 110 H POC Glucose (mg/dL) 138 H 149 H Calcium 8.5 L Phosphorus 2.7 Magnesium 1.9 Iron TIBC % Saturation Unsat Iron Binding Transferrin Ferritin Total Bilirubin 0.20 AST 10 L ALT 8 Alkaline Phosphatase 66 Total Protein 5.9 L Albumin 3.1 L Globulin 2.8 Albumin/Globulin Ratio 1.1 Prealbumin 8 L Triglycerides 94 Cholesterol 104 Vitamin B12 Folate 10/01/19 14:02 Sodium Potassium Chloride Carbon Dioxide Anion Gap BUN Creatinine Est GFR ( Amer) Est GFR (Non-Af Amer) BUN/Creatinine Ratio Glucose POC Glucose (mg/dL) 148 H Calcium Phosphorus Magnesium Iron TIBC % Saturation Unsat Iron Binding Transferrin Ferritin Total Bilirubin AST ALT Alkaline Phosphatase Total Protein Albumin Globulin Albumin/Globulin Ratio Prealbumin Triglycerides Cholesterol Vitamin B12 Folate Microbiology and Other Data: Microbiology 09/27/19 15:59 Aerobic Blood Culture - Preliminary Blood Venous No Growth Day 4 Anaerobic Blood Culture - Preliminary No Growth Day 4 09/27/19 15:37 Aerobic Blood Culture - Preliminary Blood Venous No Growth Day 4 Anaerobic Blood Culture - Preliminary No Growth Day 4 09/27/19 16:34 Skin and Soft Tissue MRSA/MSSA (PCR - Final Abdomen Mrsa Negative S.aureus Negative Gram Stain - Final Wound Culture - Final Klebsiella Pneumoniae Streptococcus Anginosus Enterococcus Faecalis 09/28/19 16:22 Sterile Body Fluid Culture - Preliminary Misc Fluid (See Comment) - Abdominal Klebsiella Pneumoniae Streptococcus Anginosus Enterococcus Faecalis Sterile Body Fluid Culture - Preliminary Klebsiella Pneumoniae Streptococcus Anginosus Enterococcus Faecalis Skin and Soft Tissue MRSA/MSSA (PCR - Final Mrsa Negative S.aureus Negative 09/28/19 16:22 Gram Stain - Final Body Fluid - Abdominal 09/27/19 20:43 Nasal Screen MRSA (PCR) - Final Nasal Mrsa Not Detected Assess/Plan/Problems-Billing Assessment: 58 yr old female with pmh of asthma, hypothyroid, sciatic, viktor; who presented who intraperitoneal collections and spontaneous drainage from midline scar - Patient Problems (1) Intra-abdominal abscess Current Visit: Yes Status: Acute Code(s): K65.1 - PERITONEAL ABSCESS SNOMED Code(s): 15870834 Comment: - Pain is tolerable. - Day 7 S/p IR drainage. T-tube in place to right lower/mid quadrant. 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 - Management per general surgery - ID consulting. Requiring a total of 2 weeks of metronidazole and 4 weeks of ceftriaxone. On day 10 currently. - TPN and Ice Chips (2) Asthma Current Visit: No Status: Acute Code(s): J45.909 - UNSPECIFIED ASTHMA, UNCOMPLICATED SNOMED Code(s): 344337013 Comment: - No S/S of exacerbation - Continue spiriva and dulera. (3) DVT prophylaxis Current Visit: No Status: Acute Code(s): Z29.9 - ENCOUNTER FOR PROPHYLACTIC MEASURES, UNSPECIFIED SNOMED Code(s): 310694400 Comment: - SCDs (4) Hypothyroid Current Visit: No Status: Acute Code(s): E03.9 - HYPOTHYROIDISM, UNSPECIFIED SNOMED Code(s): 49867265 Comment: - Continue IV levothyroxine (5) VIKTOR (obstructive sleep apnea) Current Visit: No Status: Acute Code(s): G47.33 - OBSTRUCTIVE SLEEP APNEA ( ADULT) (PEDIATRIC) SNOMED Code(s): 32633527 Comment: - Cont supplemental O2 as needed and oxygen saturation monitoring - Continue CPAP at night (6) Full code status Current Visit: No Status: Acute Code(s): Z78.9 - OTHER SPECIFIED HEALTH STATUS SNOMED Code(s): 445872987 Status and Disposition: Condition: Fair Dispo: Inpatient on [facility] Attending: Caitlin Pappas
[2019-10-07] MEDS: TPN CENTRAL STANDARD BASE A CENTR SCH ×12 (17:08)
[2019-10-07] MEDS: diPHENhydraMINE IV* 50 MG/ML 1 ml VIAL (BENADRYL) IV PRN (17:49)
[2019-10-07] MEDS: Zolpidem TAB* 5 MG PO SCH (21:01)
[2019-10-07] MEDS ORDERED: Fluconazole 150 MG TAB PO ONE (22:08)
[2019-10-07] MEDS: Nystatin TOP POWDER* 15 GM BTL TOPICAL SCH (22:42)
[2019-10-07] MEDS ORDERED: Calcium Carbonate CHEW TAB* 500 MG (TUMS) PO ONE (23:04)
[2019-10-08] MEDS: Levothyroxine INJ* 100 MCG/5 ML VIAL IV SCH (06:29)
[2019-10-08 08:54] LABS: Calcium 9.6 mg/dL (8.6-10.3); EGFR African American 138.3 (>60); EGFR Non-African American 114.3 (>60); Phosphorus 4.2 mg/dL (2.5-5.0); Potassium 4.7 mmol/L (3.5-5.0)
[2019-10-08] MEDS: Nystatin TOP POWDER* 15 GM BTL TOPICAL SCH (10:16)
[2019-10-08] MEDS: Acetaminophen TAB* 325 MG PO PRN (10:17)
[2019-10-08] MEDS: metroNIDAZOLE TAB* 250 MG PO SCH (10:18)
[2019-10-08] MEDS: SPIRIVA Respimat* (tiotropium) 2.5 mcg/inh Inhaler INH SCH (10:20)
[2019-10-08] MEDS: cefTRIAXone(*) 1 GM in NS 0.9% 50 ML* 50 ML IVPB SCH (10:33)
[2019-10-08 11:49] VITALS: BP 100/56
[2019-10-08] MEDS ORDERED: Alteplase (CATHFLO)* 2 MG VIAL IV ONE (11:50)
--- NOTE | 2019-10-08 13:45 | PN ---
Progress Note - Progress Note Date of Service: 10/08/19 SOAP: Subjective: NAD, doing well + BM C/O dysuria overnight received Diflucan [] Objective: Vital Signs Temp 98.4 F 10/08/19 11:48 Pulse 59 10/08/19 11:48 Resp 16 10/08/19 11:48 BP 100/56 10/08/19 11:48 Pulse Ox 97 10/08/19 11:48 Intake & Output 10/07/19 10/08/19 10/08/19 18:59 06:59 18:59 Intake Total 6924 144 6164 Output Total 30 40 Balance 9282 371 8097 Weight 156 lb Intake: IV Fluids 1844 1869 NS (0.9%) 20 TPN 1844 1849 IVPB 50 ABX - CEFTRIAXONE 50 Oral 240 Pigtail Drain 10 Output: Pigtail Drain 30 40 Urine 0 Other: Estimated Void Medium # Voids 4 2 PEX Gen: Looks well, NAD Chest: CTAB CVS: RRR ABD: soft, non tender on exam today, wound at base of midline incision decreased in depth, no gross purulence, RLQ Pigtail with bilious output Ext: calves soft, non tender Assessment: 58 yo female continues with improving open wound at base of prior midline incision, and pig tail drain RLQ, placed by IR on 09/27, with bilious non purulent fluid. Cx's grew out Klebs, Strep, and Enterococcus. On IV Ceftriaxone and PO Flagyl. Patient looking well, ambulatimg well. [] Plan: Wound packing changed now with a 2x2 gauze. Continue TPN, IV & PO Abx, ambulate, flush lines q shift. ABX needed for three more weeks, see Note from ID for Duration. OK to continue with PO Flagyl. TPN and Bowel Rest until pig tail drain stops draining. Home TPN and ABX are arranged. Nysatatin to/for groin rash. Home care ready for today. D/C Home
== END 2019-10-08 13:14 | disposition home health service (06) | DRG 248 ==
LOC: ED 14:44 → SSU 20:06
PROVIDERS: ADMIT Surgery; ATTEND Surgery
PROC: 0W9G30Z Drainage of Peritoneal Cavity with Drainage Device, Percutaneous Approach (ICD-10-PCS; principal; 2019-09-25)
PROC: BD47ZZZ Ultrasonography of Gastrointestinal Tract (ICD-10-PCS; 2019-09-25)
DX: K65.1 Peritoneal abscess (principal); K63.2 Fistula of intestine; L02.211 Cutaneous abscess of abdominal wall; J45.909 Unspecified asthma, uncomplicated; G47.33 Obstructive sleep apnea (adult) (pediatric); E03.9 Hypothyroidism, unspecified; E78.00 Pure hypercholesterolemia, unspecified; K57.90 Diverticulosis of intestine, part unspecified, without perforation or abscess without bleeding; F32.9 Major depressive disorder, single episode, unspecified; R41.3 Other amnesia; F41.9 Anxiety disorder, unspecified; D64.9 Anemia, unspecified; E87.8 Other disorders of electrolyte and fluid balance, not elsewhere classified; R30.0 Dysuria; M54.30 Sciatica, unspecified side; Z79.890 Hormone replacement therapy; Z79.51 Long term (current) use of inhaled steroids; Z79.899 Other long term (current) drug therapy; Z90.710 Acquired absence of both cervix and uterus; Z88.5 Allergy status to narcotic agent; Z87.891 Personal history of nicotine dependence; Z90.49 Acquired absence of other specified parts of digestive tract; Z88.0 Allergy status to penicillin; Z88.6 Allergy status to analgesic agent; Z85.41 Personal history of malignant neoplasm of cervix uteri
CPT/HCPCS: 36415; 74177; 75989; 80048; 80053; 81003; 82465; 82607; 82728; 82746; 83540; 83550; 83735; 84100; 84134; 84478; 85025; 85027; 85610; 86140; 87040; 87070; 87077; 87186; 87205; 87640; 87641; 93005; 94640; 94660; 96365; 96367; 99284; A9270-GY; C1751; C1769; C1887; J0692; J0696; J0744; J1170; J1200; J1885; J2060; J2250; J2270; J2405; J2997; J3010; J3370; J3475; J3480; J3535; Q9967